=== PATIENT | male | born 1965 | race Caucasian/White ===

== ENCOUNTER 2019-07-16 07:52 | Outpatient (CLI) | payer OTHER, SELFPAY ==
--- NOTE | ~2019-07-16 | US_ITS ---
EXAMINATION: US venous doppler LE RT DATE: 07/16/2019 15:18 INDICATION: Right calf pain. TECHNIQUE: Grayscale ultrasound images without and with compression and Doppler ultrasound images of the right lower extremity veins were obtained. COMPARISON: None. FINDINGS: The visualized portions of right common femoral vein, profunda (deep) femoral vein, femoral vein, pop liteal vein, peroneal veins, posterior tibial veins, and greater saphenous vein outflow are patent. IMPRESSION: 1. No deep venous thrombosis. Reviewed, dictated and finalized at location A. STANT NURSE MANAGER
--- NOTE | ~2019-07-16 | US_ITS ---
EXAMINATION: US arterial ankle brachial ind DATE: 07/16/2019 08:28 INDICATION: Peripheral vascular disease, unspecified. TECHNIQUE: Segmental pressures and plethysmographic and Doppler waveforms of the brachial and lower e xtremity arteries were obtained. COMPARISON: None. FINDINGS: Right and left brachial artery pressures of 139 mm Hg and 128 mm Hg, respectively, are concordant (no rmal difference <= 30 mmHg). The right ankle-brachial index (BOUBACAR) is 1.10 (normal >= 0.9-1.0). The right great toe-brachial index (TBI) is 1.12 (normal >= 0.65). Arterial Doppler waveforms are triphasic at the ankle. The left BOUBACAR is 1.04. The left TBI is 1.01. Arterial Doppler waveforms are triphasic at the ankle. IMPRESSION: 1. No significant arterial occlusive disease. Reviewed, dictated and finalized at location A. SPRING DEVELOPER
== END 2019-07-16 07:53 | disposition home or self-care (01) ==
PROVIDERS: PCP Family Medicine; Visit Provider Physician Assistant
DX: I73.9 Peripheral vascular disease, unspecified (principal); M79.661 Pain in right lower leg
CPT/HCPCS: 93922; 93971

== ENCOUNTER 2019-09-17 08:49 | Outpatient (CLI) | payer OTHER, SELFPAY ==
--- NOTE | 2019-09-17 10:00 | NEURO_ITS ---
Patient Number: [id number] Impression: # Complains of numbness of right foot. # Normal nerve conduction study except posterior tibial response at the popliteal is polyphasic. # Normal needle/EMG exam. # Question of early post tibial neuropathy. Nerve Conduction Studies Anti Sensory Summary Table Stim Site NR Peak (ms) P-T Amp (?V) Site1 Site2 Delta-P (ms) Dist (cm) Apolinar (m/s) Left Sup Fibular Anti Sensory (Ant Lat Mall) 14 cm 3.6 14.0 14 cm Ant Lat Mall 3.6 16.0 44 Right Sup Fibular Anti Sensory (Ant Lat Mall) 14 cm 3.6 14.8 14 cm Ant Lat Mall 3.6 16.0 44 Left Sural Anti Sensory (Lat Mall) Calf 4.0 7.7 Calf Lat Mall 4.0 16.0 40 Right Sural Anti Sensory (Lat Mall) Calf 3.9 7.8 Calf Lat Mall 3.9 16.0 41 Motor Summary Table Stim Site NR Onset (ms) O-P Amp (mV) Site1 Site2 Delta-0 (ms) Dist (cm) Apolinar (m/s) Left Peroneal Motor (Vastus Med) Ankle 4.8 3.1 Popit Ankle 9.4 38.0 40 Popit 14.2 2.0 Right Peroneal Motor (Vastus Med) Ankle 4.8 2.1 Popit Ankle 8.8 39.0 44 Popit 13.6 3.8 Left Tibial Motor (Abd Winston Brev) Ankle 4.9 0.5 Knee Ankle 10.6 45.0 42 Knee 15.5 0.5 Right Tibial Motor (Abd Winston Brev) Ankle 5.3 1.7 Knee Ankle 10.8 44.0 41 Knee 16.1 0.6 F Wave Studies NR F-Lat (ms) L-R F-Lat (ms) Left Peroneal (Mrkrs) (EDB) 57.03 0.03 Right Peroneal (Mrkrs) (EDB) 57.00 0.03 Left Tibial (Mrkrs) (Abd Hallucis) 58.95 0.01 Right Tibial (Mrkrs) (Abd Hallucis) 58.96 0.01 EMG Side Muscle Nerve Root Ins Act Fibs Amp Dur Recrt Comment Right AntTibialis Dp Br Fibular L4-5 Nml Nml Nml Nml Nml Right Gastroc Tibial S1-2 Nml Nml Nml Nml Nml Right Fibularis Long Sup Br Fibular L5-S1 Nml Nml Nml Nml Nml Right Flex Dig Long Tibial L5-S2 Nml Nml Nml Nml Nml Right Ext Dig Brev Dp Br Fibular L5, S1 Nml Nml Nml Nml Nml Left AntTibialis Dp Br Fibular L4-5 Nml Nml Nml Nml Nml Left Gastroc Tibial S1-2 Nml Nml Nml Nml Nml Left Fibularis Long Sup Br Fibular L5-S1 Nml Nml Nml Nml Nml Left Flex Dig Long Tibial L5-S2 Nml Nml Nml Nml Nml Left Ext Dig Brev Dp Br Fibular L5, S1 Nml Nml Nml Nml Nml Right QuadratusFem QuadFemoris L4-5, S1 Nml Nml Nml Nml Nml Left QuadratusFem QuadFemoris L4-5, S1 Nml Nml Nml Nml Nml MTDD
== END 2019-09-17 08:50 | disposition home or self-care (01) ==
PROVIDERS: PCP Family Medicine; Visit Provider Physician Assistant
DX: R20.2 Paresthesia of skin (principal); R29.898 Other symptoms and signs involving the musculoskeletal system
CPT/HCPCS: 95886; 95910

== ENCOUNTER 2019-12-05 07:42 | Outpatient (CLI) | payer OTHER, SELFPAY ==
--- NOTE | ~2019-12-05 | MR_ITS ---
EXAMINATION: MR thoracic spine wo con EXAM DATE: 12/05/2019 08:55 INDICATION: Numbness in right foot. Difficulty with stairs. TECHNIQUE: Multi-sequential, multiplanar MR images of the thoracic spine were obtained without contra st. Sagittal T1, T2, T2 fat saturation, axial T2 weighted images reviewed. There is no prior study for comparison. FINDINGS: The spinal cord signal intensity and intrinsic morphology is normal. Thoracic central canal and neural foramen are widely patent. There is only mild disc disease at the mid and lower thoracic levels. Minimal anterior wedging of a midthoracic vertebral body, chronic given that thoracic bone ma rrow signal is normal throughout. Small upper lumbar vertebral body hemangioma. Mild diffuse thoracic facet arthropathy. Paraspinal soft tissue is unremarkable. IMPRESSION: Mild thoracic spondylosis without stenosis. Normal cord signal. Reviewed, dictated and finalized at location A.
--- NOTE | ~2019-12-05 | MR_ITS ---
EXAMINATION: MR cervical spine wo con EXAM DATE: 12/05/2019 08:54 INDICATION: Weakness, numbness. Right foot numbness. Difficulty with stairs. TECHNIQUE: Multi-sequential, multiplanar MR images of the cervical spine were obtained without contra st. Axial T2, axial T2 MERGE sequence. Sagittal T1, T2, T2 fat saturation images also obtained. Cor relation is made to CT cervical spine 01/03/2019. FINDINGS: There is mild disc disease at C5-6 and C6-7. The vertebral bodies are aligned in the AP di mension. The spinal cord signal intensity and intrinsic morphology is normal. Cervicomedullary juncti on is normal in appearance. There are no suspicious marrow signal abnormalities. Paraspinal soft tiss ue is unremarkable. Right clavicular fracture which is likely old. Level by level evaluation: C2-C3: Disc does not extend beyond the endplate margin. Uncovertebral joint arthropathy: None. Facet joint arthropathy: Mild bilateral. Neural foraminal stenosis: No stenosis. Central canal stenosis: No stenosis. C3-C4: Disc does not extend beyond the endplate margin. Uncovertebral joint arthropathy: Mild right. Facet joint arthropathy: Mild to moderate bilateral. Neural foraminal stenosis: Mild right. Central canal stenosis: No stenosis. C4-C5: Disc does not extend beyond the endplate margin. Uncovertebral joint arthropathy: Mild bilateral. Facet joint arthropathy: Mild to moderate bilateral. Neural foraminal stenosis: No stenosis. Central canal stenosis: No stenosis. C5-C6: There is a mild diffuse disc bulge asymmetric to the left Uncovertebral joint arthropathy: Mild to moderate bilateral. Facet joint arthropathy: Mild to moderate bilateral. Neural foraminal stenosis: Mild to moderate left, mild right. Central canal stenosis: Minimal. C6-C7: There is a minimal diffuse disc bulge. Uncovertebral joint arthropathy: Mild bilateral. Facet joint arthropathy: Mild to moderate bilateral. Neural foraminal stenosis: No stenosis. Central canal stenosis: No stenosis. C7-T1: Disc does not extend beyond the endplate margin. Uncovertebral joint arthropathy: None. Facet joint arthropathy: Mild bilateral. Neural foraminal stenosis: No stenosis. Central canal stenosis: No stenosis. IMPRESSION: 1. Mild cervical spondylosis. 2. Normal cord signal. Reviewed, dictated and finalized at location A.
== END 2019-12-05 07:43 | disposition home or self-care (01) ==
PROVIDERS: PCP Family Medicine; Visit Provider Psychiatry & Neurology Neurology
DX: R53.1 Weakness (principal); M47.814 Spondylosis without myelopathy or radiculopathy, thoracic region; M47.812 Spondylosis without myelopathy or radiculopathy, cervical region
CPT/HCPCS: 72141; 72146

== ENCOUNTER 2020-01-12 13:34 | Outpatient (CLI) | payer OTHER, SELFPAY ==
--- NOTE | ~2020-01-12 | MR_ITS ---
EXAMINATION: MR lumbar spine wo con EXAM DATE: 01/12/2020 14:39 INDICATION: Right leg numbness since June 2019. TECHNIQUE: Multi-sequential, multiplanar MR images of the lumbar spine were obtained without contrast . Sagittal T1, T2, T2 fat saturation images. Axial T2 weighted images. There is no prior study for comparison. FINDINGS: There are scattered focal signal abnormalities consistent with hemangiomata, otherwise with out focal suspicious marrow signal abnormalities. There is mild to moderate disc disease L1-2, modera te at L5-S1, mild at the mid lumbar levels. There is 4 mm retrolisthesis L5 on S1. The vertebral bodi es are otherwise aligned. Paraspinal soft tissue is unremarkable. Level by level evaluation: T12-L1: Disc does not extend beyond the endplate margin. Facet arthropathy: Mild. Neural foraminal stenosis: No stenosis. Central canal stenosis: No stenosis. L1-L2: There is a mild diffuse disc bulge. Facet arthropathy: Mild. Neural foraminal stenosis: Mild left. Central canal stenosis: No stenosis. L2-L3: There is a minimal diffuse disc bulge. Facet arthropathy: Mild. Neural foraminal stenosis: No stenosis. Central canal stenosis: No stenosis. L3-L4: There is a mild diffuse disc bulge. Facet arthropathy: Mild. Neural foraminal stenosis: No stenosis. Central canal stenosis: No stenosis. L4-L5: There is a mild diffuse disc bulge. Facet arthropathy: Mild. Neural foraminal stenosis: Mild bilateral. Central canal stenosis: No stenosis. L5-S1: There is a mild to moderate diffuse disc bulge. Facet arthropathy: Mild to moderate. Neural foraminal stenosis: Moderate right, mild to moderate left. Central canal stenosis: No stenosis. IMPRESSION: Moderate L5-S1 spondylosis. Reviewed, dictated and finalized at location A. IMPRESSION: Moderate L5-S1 spondylosis.
== END 2020-01-12 13:35 | disposition home or self-care (01) ==
PROVIDERS: PCP Family Medicine; Visit Provider Psychiatry & Neurology Neurology
DX: R53.1 Weakness (principal); M47.816 Spondylosis without myelopathy or radiculopathy, lumbar region
CPT/HCPCS: 72148

== ENCOUNTER 2020-05-22 12:39 | Emergency (ER) | payer OTHER, SELFPAY ==
[2020-05-22 12:48] VITALS: BP 157/92; PULSE 90; RESP 18; TEMP 36.8; O2SAT 99
--- NOTE | 2020-05-22 13:05 | ED.GENADULT ---
HPI - General Adult General Chief complaint: Recheck/Abnormal Lab/Rx Stated complaint: Acid Reflux Time Seen by Provider: 05/22/20 12:59 Source: patient and RN notes reviewed Mode of arrival: ambulatory Limitations: no limitations History of Present Illness HPI narrative: Patient presents today requesting a refill of his omeprazole, 40 mg daily. Patient has history of severe GERD with erosive esophagitis diagnosed by endoscopy several years ago. He ran out of his omeprazole 4 to 5 days ago and pharmacy has not been able to get a refill from his PCP yet. Patient is experiencing some epigastric discomfort and some regurgitation into his throat. Denies vomiting. States he has been drinking a lot of caffeine and eating spicy foods over the last couple of days. MD complaint: Medication refill, GERD symptoms Related Data Home Medications Medication Instructions Recorded Confirmed aspirin 81 mg chewable tablet 1 tablet PO DAILY tablet 10/14/19 atorvastatin 20 mg tablet 20 mg PO DAILY tablet 10/14/19 isosorbide mononitrate 30 mg 30 mg PO DAILY tablet 10/14/19 tablet,extended release 24 hr lisinopril 5 mg tablet 5 mg PO DAILY tablet 10/14/19 metoprolol succinate 25 mg 25 mg PO DAILY tablet 10/14/19 tablet,extended release 24 hr omeprazole 40 mg capsule,delayed 40 mg PO DAILY cap 10/14/19 release gabapentin 05/22/20 Allergies Allergy/AdvReac Type Severity Reaction Status Date / Time No Known Allergies Allergy Verified 04/20/20 07:56 Review of Systems Review of Systems: Narrative: CONSTITUTIONAL: Denies body aches, fever, chills, or sweats. EYES: Denies visual changes, redness, or discharge. ENT: Denies rhinorrhea, congestion, sore throat, or otalgia. CARDIOVASCULAR: Denies chest pain, palpitations, or edema. RESPIRATORY: Denies cough or dyspnea. GASTROINTESTINAL: Denies abdominal pain, nausea, vomiting, or diarrhea. + Increased acid reflux GENITOURINARY: Denies dysuria or hematuria. SKIN: Denies rash, itching, or wounds. MUSCULOSKELETAL: Denies back pain, joint pain, or myalgia. NEUROLOGIC: Denies headache, numbness, tingling, or weakness. PSYCH: Denies depression or anxiety. [facility] Past Medical History Medical History (Updated 05/22/20 @ 13:10 by JENNIFER Brandon, ) Coronary artery disease Erosive esophagitis GERD (gastroesophageal reflux disease) Hypercholesterolemia Seasonal allergies Surgical History Surgical History (Updated 06/09/19 @ 09:04 by JENNIFER Estrella) H/O cardiac catheterization No stents, on metoprolol History of orthopedic surgery Fractured right clavicle, fractured rib, fractured spinal process 2019 Hx of tonsillectomy Family History Family History Mother Family history of diabetes mellitus in first degree relative Father Family history of coronary artery disease Malignant neoplasm of prostate Social History Social History (Updated 04/20/20 @ 07:57 by Kori Mendez) Smoking status: Never smoker Second hand tobacco smoke exposure: No Alcohol intake: never Substance use: never Substance use type: does not use Gender identity (if verbalized by the patient): Male Comments At time of signature, I have reviewed and agree with nursing past medical, surgical, social and family history unless otherwise noted. Please see nursing chart for further information. There is no relevant family history pertinent to the presenting complaint Exam Narrative: Exam Narrative: GENERAL: Well-appearing, well-nourished, and in no acute distress. HEAD: Normocephalic, atraumatic. EYES: EOMI. No redness or drainage. Conjunctivae normal. ENT: Mucous membranes pink and moist. NECK: Normal AROM. CHEST: No respiratory distress. Clear to auscultation. HEART: Regular rate and rhythm. No murmur appreciated. Normal peripheral pulses. ABDOMEN: Soft, nontender, nondistended, normal active bowel lacey
== END 2020-05-22 13:10 | disposition home or self-care (01) ==
PROVIDERS: Emergency Provider Nurse Practitioner; PCP Family Medicine
DX: K21.00 Gastro-esophageal reflux disease with esophagitis, without bleeding (principal); I25.10 Atherosclerotic heart disease of native coronary artery without angina pectoris; E78.00 Pure hypercholesterolemia, unspecified; Z79.82 Long term (current) use of aspirin
CPT/HCPCS: 99213; G0463

== ENCOUNTER 2020-10-12 16:28 | Outpatient (CLI) | payer OTHER, SELFPAY ==
[2020-10-12 17:40] LABS: Hemoglobin A1C 6.4 % (<5.7)
[2020-10-12 17:44] LABS: Alanine Aminotransferase 27 U/L (4-50); Albumin Level 4.3 g/dL (3.5-5.1); Alkaline Phosphatase 102 U/L (38-126); Anion Gap 8 mmol/L (8-16); Aspartate Amino Transferase 29 U/L (17-59); Bilirubin,Total 0.8 mg/dL (0.2-1.3); Blood Urea Nitrogen 12 mg/dL (9-20); Calcium 9.3 mg/dL (8.4-10.2); Carbon Dioxide 26 mmol/L (22-30); Chloride 108 mmol/L (98-107); Estimated Glomerular Filt Rate > 60; Glucose 152 mg/dL (75-110); Sodium 142 mmol/L (137-145)
== END 2020-10-12 16:29 | disposition home or self-care (01) ==
LOC: ANHLAB 16:30
PROVIDERS: PCP Family Medicine; Visit Provider Physician Assistant
DX: I25.10 Atherosclerotic heart disease of native coronary artery without angina pectoris (principal); R20.2 Paresthesia of skin; R73.01 Impaired fasting glucose
CPT/HCPCS: 36415; 80053; 82607; 82746; 83036; 84443

== ENCOUNTER → 2021-01-10 14:24 | Outpatient (CLI) | payer OTHER, SELFPAY ==
--- NOTE | ~2021-01-10 | MR_ITS ---
EXAMINATION: MR lumbar spine wo con DATE: 01/10/2021 15:08 INDICATION: Lumbar radiculopathy. TECHNIQUE: Magnetic resonance imaging (MRI) of the lumbar spine was performed without intravenous con trast. Sequences included sagittal T2-weighted FSE, sagittal T2-weighted FS FSE, sagittal STIR FSE, s agittal T1-weighted FSE, and axial T2-weighted FSE. COMPARISON: Lumbar spine MRI 01/12/2020 FINDINGS: There is 7 degrees dextrocurvature of thoracolumbar spine. There is 3 mm retrolisthesis of L5 on S1. Vertebral body heights are normal. There is mildly decreased disc height at L1-L2 and sever jesu decreased disc height at L5-S1 with endplate remodeling. The distal spinal cord signal intensity is normal. The conus medullaris is at L2. The following disc levels are specifically discussed: L1-L2: The disc is bulging and has an annular fissure. There is mild bilateral facet joint osteoarthr itis. There is mild left neural foraminal stenosis. There is mild central canal stenosis. L2-L3: There is a left foraminal protrusion. There is mild bilateral facet joint osteoarthritis. Ther e is mild left neural foraminal stenosis. There is no central canal stenosis. L3-L4: The disc is mildly bulging. There is mild bilateral facet joint osteoarthritis. There is mild bilateral neural foraminal stenosis. There is no central canal stenosis. L4-L5: The disc is mildly bulging. There is mild bilateral facet joint osteoarthritis. There is mild bilateral neural foraminal stenosis. There is no central canal stenosis. L5-S1: The disc is bulging and has an annular fissure. There is moderate right and mild left facet gavin int osteoarthritis. There is moderate right and mild left neural foraminal stenosis. There is mild ce ntral canal stenosis. IMPRESSION: 1. Moderate lumbar spondylosis, stable from 01/12/2020. Reviewed, dictated and finalized at location A.
== END ==
PROVIDERS: PCP Family Medicine; Visit Provider Nurse Practitioner Adult Health
DX: M47.27 Other spondylosis with radiculopathy, lumbosacral region (principal); M48.07 Spinal stenosis, lumbosacral region
CPT/HCPCS: 72148

== ENCOUNTER 2021-04-26 09:48 | Outpatient (CLI) | payer OTHER, SELFPAY ==
[2021-04-26 10:11] LABS: Basophils Absolute Auto 0.1 K/mm3 (0.0-0.1); Basophils Percent Auto 0.7 % (0.2-1.2); Eosinophils Absolute Auto 0.3 K/mm3 (0-0.3); Eosinophils Percent Auto 3.9 % (0-4.4); Hematocrit 45.7 % (42.0-52.0); Hemoglobin 14.7 g/dL (14.0-18.0); Immature Granulocyte Absolute 0.02 K/mm3 (0.00-0.031); Immature Granulocyte Percent A 0.2 % (0-0.5); Lymphocytes Absolute Auto 2.71 K/mm3 (0.9-3.2); Lymphocytes Percent Auto 32.3 % (18.3-44.2); Mean Corpuscular HGB Conc 32.2 g/dl (32-36); Mean Corpuscular Hemoglobin 28.8 pg (26-34); Mean Corpuscular Volume 89.6 fl (80-100); Mean Platelet Volume 10.9 fl (7.4-10.4); Monocytes Absolute Auto 0.5 K/mm3 (0.1-0.6); Monocytes Percent Auto 6.4 % (2.6-8.5); Neutrophils Absolute Auto 4.7 K/mm3 (1.3-6.7); Neutrophils Percent Auto 56.5 % (45.5-73.1); Platelet Count Result 287 k/mm3 (150-375); Red Cell Distribution Width 14.1 % (11.5-14.5); White Blood Count 8.4 K/mm3 (4.5-10.0)
[2021-04-26 10:21] LABS: Alanine Aminotransferase 35 U/L (4-50); Albumin Level 4.5 g/dL (3.5-5.1); Alkaline Phosphatase 110 U/L (38-126); Anion Gap 12 mmol/L (8-16); Aspartate Amino Transferase 29 U/L (17-59); Bilirubin,Total 0.8 mg/dL (0.2-1.3); Blood Urea Nitrogen 22 mg/dL (9-20); Calcium 8.7 mg/dL (8.4-10.2); Carbon Dioxide 21 mmol/L (22-30); Chloride 102 mmol/L (98-107); Cholesterol 158 mg/dL (0-200); Estimated Glomerular Filt Rate > 60; Glucose 130 mg/dL (65-110); HDL Direct 39 mg/dL; Potassium 3.9 mmol/L (3.4-5.0); Sodium 135 mmol/L (137-145); Triglycerides 105 mg/dL (<150)
[2021-04-26 10:32] LABS: LDL Cholesterol Direct 98 mg/dL
[2021-04-26 11:13] LABS: Hemoglobin A1C 5.2 % (<5.7)
== END 2021-04-26 09:49 | disposition home or self-care (01) ==
LOC: ANHLAB 09:52
PROVIDERS: PCP Family Medicine; Visit Provider Nurse Practitioner Family
DX: R73.01 Impaired fasting glucose (principal); E78.00 Pure hypercholesterolemia, unspecified; I25.10 Atherosclerotic heart disease of native coronary artery without angina pectoris; R55 Syncope and collapse
CPT/HCPCS: 36415; 80053; 80061; 83036; 85025

== ENCOUNTER 2021-05-26 09:31 | Outpatient (CLI) | payer OTHER, SELFPAY ==
--- NOTE | ~2021-05-26 | CT_ITS ---
EXAMINATION: CT brain wo con DATE: 05/26/2021 09:51 INDICATION: Right leg numbness and tingling. TECHNIQUE: Computed tomography (CT) of the head was performed without intravenous contrast. The mA wa s adjusted according to patient size. Iterative reconstruction technique was employed. The dose-lengt h product was 681.00 mGy-cm. COMPARISON: Head CT 01/03/2019 FINDINGS: There are scattered areas of low attenuation in the cerebral white matter. There is no intr acranial hemorrhage, acute infarction, or abnormal intracranial mass lesion. The ventricles are joe l in size. The orbits are normal. There is mild mucosal thickening in the paranasal sinuses. The mast oid air cells are normal. IMPRESSION: 1. Worsened extensive nonspecific cerebral white matter disease, which likely represents chronic smal l vessel ischemic disease. Reviewed, dictated and finalized at location A. BILITIES CAREGIVER IMPRESSION: 1. Worsened extensive nonspecific cerebral white matter disease, which likely r epresents chronic small vessel ischemic disease.
== END 2021-05-26 09:32 | disposition home or self-care (01) ==
LOC: ANHIMG 09:34
PROVIDERS: PCP Family Medicine; Visit Provider Nurse Practitioner Family
DX: R42 Dizziness and giddiness (principal); R55 Syncope and collapse; R93.0 Abnormal findings on diagnostic imaging of skull and head, not elsewhere classified
CPT/HCPCS: 70450

== ENCOUNTER 2021-05-31 06:36 | Outpatient (CLI) | payer OTHER, SELFPAY ==
--- NOTE | ~2021-05-31 | MR_ITS ---
EXAMINATION: MR cervical spine wo/w con DATE: 05/31/2021 14:07 INDICATION: Other symptoms and signs involving the musculoskeletal system. Neck and back pain. Numbne ss and weakness of the right leg. TECHNIQUE: Magnetic resonance imaging (MRI) of the cervical spine was performed without and with 20 m L MultiHance intravenous contrast. Sequences included sagittal and axial T2-weighted FSE, sagittal ST IR FSE, and sagittal and axial T1-weighted FSE. Postcontrast sequences included sagittal and axial T1 -weighted FS FSE. COMPARISON: Cervical spine MRI 12/05/2019 FINDINGS: There is 5 degrees dextrocurvature of cervical spine. There is mild chronic anterior wedgin g of T7 vertebral body. Disc heights are normal. The spinal cord signal intensity is normal. The foll owing disc levels are specifically discussed: C2-C3: The disc does not extend beyond the endplate margin. There is no uncovertebral joint osteoarth ritis. There is mild right and moderate left facet joint osteoarthritis. There is no neural foraminal stenosis. There is no central canal stenosis. C3-C4: There is a central protrusion. There is moderate and mild left uncovertebral joint osteoarthri tis. There is mild bilateral facet joint osteoarthritis. There is mild right neural foraminal stenosi s. There is no central canal stenosis. C4-C5: The disc does not extend beyond the endplate margin. There is mild right uncovertebral joint o steoarthritis. There is mild bilateral facet joint osteoarthritis. There is mild right neural foramin al stenosis. There is no central canal stenosis. C5-C6: The disc is bulging. There is mild bilateral uncovertebral joint osteoarthritis. There is mild bilateral facet joint osteoarthritis. There is mild bilateral neural foraminal stenosis. There is mi ld central canal stenosis. C6-C7: There is a central protrusion. There is no uncovertebral joint osteoarthritis. There is no fac et joint osteoarthritis. There is no neural foraminal stenosis. There is no central canal stenosis. C7-T1: The disc does not extend beyond the endplate margin. There is no uncovertebral joint osteoarth ritis. There is no facet joint osteoarthritis. There is no neural foraminal stenosis. There is no victor m tral canal stenosis. IMPRESSION: 1. Mild cervical spondylosis, stable from 12/05/2019. Reviewed, dictated and finalized at location A. PIT WORKER
--- NOTE | ~2021-05-31 | MR_ITS ---
EXAMINATION: MR thoracic spine wo/w con DATE: 05/31/2021 14:06 INDICATION: TECHNIQUE: Magnetic resonance imaging (MRI) of the thoracic spine was performed without and with 15 m L Multihance intravenous contrast. Sagittal localizer T1-weighted FSE of the cervicothoracic spine wa s obtained. Sequences included sagittal T2-weighted FSE, sagittal T2-weighted FS FSE, sagittal T1-laly ghted FSE and axial T1-weighted SE. Postcontrast sequences included axial T2-weighted FSE, sagittal T 1-weighted FS FSE, and axial T1-weighted FS SE. COMPARISON: 12/05/2019 FINDINGS: 15 degree levoscoliosis measured between T2 and T6. Sagittal alignment is normal. Unchanged minimal a nterior wedging at T5. Normal marrow signal.Mild right-sided disc height loss at T3-T4 and mild disc height loss at T5-T6, T8-T9, T10-T11, T11-T12 and L1-L2. No central canal or neural foraminal stenosi s. There is normal spinal cord signal. No abnormally enhancing lesions identified. IMPRESSION: 1. 15 degrees upper thoracic levoscoliosis with no significant change in mild thoracic spondylosis. Reviewed, dictated and finalized at location . RUMENT SHOP SUPERVISOR IMPRESSION: 1. 15 degrees upper thoracic levoscoliosis with no significant change in mild t horacic spondylosis.
--- NOTE | 2021-05-31 10:59 | WPDNEUROLOGY ---
Neurology EEG Report General Information Date of Study: 05/31/21 TEST eeg DIAGNOSIS Loss of consciousness CONDITION OF RECORDING awake drowsy and sleep EEG NUMBER [id number] CLINICAL HISTORY the patient reported a couple of weeks ago he had 3 episodes of losing consciousness for a minute or so. He has stopped taking lisinopril hand has not had any more episodes EEG DESCRIPTION basic resting occipital frequency consists of large amount of well-organized low to medium voltage 9 to 11 hertz per 2nd alpha admixed with low-voltage 15 to 18 hertz per 2nd beta. Low-voltage beta activity seen diffusely admixed with waxing and waning posterior alpha rhythm during drowsiness. Bilateral symmetrical sleep activity seen during sleep. Hyperventilation not done. Photic stimulation produced normal drive. Non paroxysmal. Nonfocal. Nonlateralizing. IMPRESSION normal record
[2021-05-31 12:48] LABS: Estimated Glomerular Filt Rate > 60
== END 2021-05-31 06:37 | disposition home or self-care (01) ==
PROVIDERS: PCP Family Medicine; Visit Provider Psychiatry & Neurology Neurology
DX: R29.898 Other symptoms and signs involving the musculoskeletal system (principal); R55 Syncope and collapse; M41.84 Other forms of scoliosis, thoracic region; M47.814 Spondylosis without myelopathy or radiculopathy, thoracic region; M47.812 Spondylosis without myelopathy or radiculopathy, cervical region
CPT/HCPCS: 72156; 72157; 95816; A9577

== ENCOUNTER 2021-07-08 13:44 | Outpatient (CLI) | payer OTHER, SELFPAY ==
--- NOTE | ~2021-07-08 | MR_ITS ---
EXAMINATION: MR brain/brain stem wo con DATE: 07/08/2021 14:25 INDICATION: Right leg weakness. Other symptoms and signs involving the musculoskeletal system. TECHNIQUE: Magnetic resonance imaging (MRI) of the brain and brainstem was performed without intraven ous contrast. Sequences included sagittal and axial T1-weighted FSE, axial diffusion-weighted FS EPI, axial T2*-weighted GRE, axial T2-weighted FLAIR Propeller, and axial T2-weighted Propeller. Apparent diffusion coefficient (ADC) maps were created. COMPARISON: Head CT 05/26/2021 FINDINGS: There are scattered areas of nonspecific increased T2-weighted signal intensity in the cere bral white matter, middle cerebellar peduncles, cerebellar white matter, and brainstem. There is no i ntracranial hemorrhage, acute infarction, or abnormal intracranial mass lesion. The ventricles are no rmal in size. The orbits are normal. There is mild mucosal thickening in the paranasal sinuses. The m astoid air cells are normal. IMPRESSION: 1. Extensive nonspecific cerebral and cerebellar white matter disease and disease of the brainstem, w hich may represent chronic small vessel ischemic disease and/or multiple sclerosis. Reviewed, dictated and finalized at location A. ARCH KENNEL SUPERVISOR IMPRESSION: 1. Extensive nonspecific cerebral and cerebellar white matter disease and disea se of the brainstem, which may represent chronic small vessel ischemic disease and/or multiple sclerosis.
== END 2021-07-08 13:45 | disposition home or self-care (01) ==
LOC: ANHIMG 13:47
PROVIDERS: PCP Family Medicine; Visit Provider Psychiatry & Neurology Neurology
DX: R29.898 Other symptoms and signs involving the musculoskeletal system (principal); R26.81 Unsteadiness on feet; R93.0 Abnormal findings on diagnostic imaging of skull and head, not elsewhere classified
CPT/HCPCS: 70551

== ENCOUNTER 2021-07-30 09:38 | Outpatient (CLI) | payer OTHER, SELFPAY ==
--- NOTE | ~2021-07-30 | MR_ITS ---
EXAMINATION: MR thoracic spine wo/w con EXAM DATE: 07/30/2021 11:22 INDICATION: G35 - Multiple sclerosis TECHNIQUE: Multi-sequential, multiplanar MR images of the thoracic spine were obtained without contra st. Sagittal T1, T2, T2 fat saturation, axial T2 weighted images reviewed. Axial T1 weighted sequenc e. Patient was then injected with 20 mL Multihance intravenous contrast and reimaged. Postcontrast axial and sagittal T1-weighted fat saturation sequences were obtained. Comparison is made to prior ex amination from 05/31/2021. FINDINGS: Again there is mild upper thoracic levoscoliosis. Mild mid and lower thoracic disc disease. Mild diffuse thoracic facet arthropathy without central canal or neural foraminal stenosis. The spin al cord signal intensity and intrinsic morphology is normal. There are no areas of abnormal enhanceme nt on the post contrast images. IMPRESSION: 1. Mild upper thoracic levoscoliosis. 2. Mild spondylosis unchanged. 3. Normal cord signal. Reviewed, dictated and finalized at location A. NE MACHINIST
--- NOTE | ~2021-07-30 | MR_ITS ---
EXAMINATION: MR cervical spine wo/w con EXAM DATE: 07/30/2021 11:22 INDICATION: G35 - Multiple sclerosis TECHNIQUE: Multi-sequential, multiplanar MR images of the cervical spine were obtained without contra st. Axial T2, axial T2 MERGE sequence. Sagittal T1, T2, T2 fat saturation images also obtained. Axi al T1 weighted sequence. Patient was then injected with 20 mL Multihance intravenous contrast and re imaged. Postcontrast axial and sagittal T1-weighted fat saturation sequences were obtained.. Compari son is made to prior examination from 05/31/2021. FINDINGS: The vertebral bodies are aligned in the AP dimension. There is mild C5-6 disc disease. The vertebral body and disc heights are otherwise well maintained. There are no suspicious marrow signal abnormalities. The spinal cord signal intensity and intrinsic morphology is normal. Cervicomedullary junction is normal in appearance. There is focal region of increased T2 signal intensity within the right brachium pontis of the cerebellum without enhancement. This is unchanged compared to prior stud y. The mild to moderate cervical arthropathy previously described is unchanged with the left C5-6 lisa ral foramina most narrowed, mild to moderate stenosis. There are no areas of abnormal enhancement on the post contrast images. IMPRESSION: 1. Normal cervical cord signal. 2. Unchanged right cerebellar white matter hyperintensity. 3. Unchanged mild disc disease, mild to moderate arthropathy. Reviewed, dictated and finalized at location A. KE OPERATIONS OFFICER
[2021-07-30 10:13] LABS: Estimated Glomerular Filt Rate > 60
== END 2021-07-30 09:39 | disposition home or self-care (01) ==
LOC: ANHIMG 09:44
PROVIDERS: PCP Family Medicine; Visit Provider Psychiatry & Neurology Neurology
DX: G35 Multiple sclerosis (principal); M47.894 Other spondylosis, thoracic region; R93.0 Abnormal findings on diagnostic imaging of skull and head, not elsewhere classified; M50.30 Other cervical disc degeneration, unspecified cervical region
CPT/HCPCS: 72156; 72157; A9577

== ENCOUNTER 2021-08-14 18:59 | Observation (INO) | payer OTHER, SELFPAY ==
[2021-08-14] VITALS (24 sets, daily range): BP systolic 122–180; BP diastolic 56–110; PULSE 59–127; RESP 16–34; TEMP 36.4–36.9; O2SAT 95–100; BMI 37.8
--- NOTE | ~2021-08-14 | CT_ITS ---
EXAMINATION: CT abdomen pelvis wo con DATE: 08/15/2021 10:37 INDICATION: Diarrhea TECHNIQUE: Computed tomography (CT) of the abdomen and pelvis was performed without intravenous contr ast. The dose-length product (DLP) was 1476.03 mGy-cm. Automated exposure control and iterative recon struction technique were employed. COMPARISON: 01/03/2019 FINDINGS: Minimal dependent atelectasis is present in the lung bases. The heart size is normal. Calci fied coronary artery atherosclerosis is noted. The liver, spleen, pancreas, gallbladder, and adrenal glands are normal. There are three nonobstructing stones of the left kidney which measure up to 8 mm. Punctate nonobstructing stones of the right kidney measure up to 2 mm. No stones are identified in t he ureters or bladder. There is no hydronephrosis or hydroureter. The appendix is normal. There is a fat-containing umbilical hernia. No pathologically enlarged abdominal or pelvic lymph nodes are ident ified. There is no free intraperitoneal gas or evidence of bowel obstruction. There is moderate lumba r spondylosis at L5-S1. IMPRESSION: 1. No CT correlate for the patient's symptoms. 2. Bilateral nephrolithiasis. Reviewed, dictated and finalized at location B. R REPAIRER
--- NOTE | ~2021-08-14 | CT_ITS ---
EXAMINATION: CT brain wo con DATE: 08/14/2021 19:50 INDICATION: Weakness TECHNIQUE: Computed tomography (CT) of the head was performed without intravenous contrast. Sagittal and coronal reconstructions were performed. The mA was adjusted according to patient size. Iterative reconstruction technique was employed. The dose-length product was 681.00 mGy-cm. COMPARISON: head CT dated 05/26/2021 and brain MR dated 07/08/2021 FINDINGS: No acute intracranial hemorrhage, acute infarction or abnormal extra axial fluid collection. There is extensive scattered white matter hypoattenuation consistent with chronic small vessel ischemic disea se. Symmetric prominence of the sulci and ventricles consistent with mild age-appropriate diffuse cer ebral volume loss. No mass/mass effect. Mild mucosal thickening the left maxillary sinus. The orbits and mastoid air cells are normal. IMPRESSION: 1. Stable age-related changes including mild diffuse volume loss and extensive scattered white matter hypoattenuation consistent with chronic small vessel ischemic disease. Reviewed, dictated and finalized at location A. TATION OPERATOR AUTOMATIC IMPRESSION: 1. Stable age-related changes including mild diffuse volume loss and extensive scattered white matter hypoattenuation consistent with chronic small vessel isc hemic disease.
--- NOTE | 2021-08-14 19:11 | ECG_ITS ---
Measurements Intervals [place] Rate: 120 P: 48 MT: 140 QRS: -10 QRSD: 94 T: 71 QT: 311 QTc: 439 Interpretive Statements SINUS TACHYCARDIA WITH FREQUENT VENTRICULAR PREMATURE COMPLEXES IN A PATTERN OF VENTRICULAR TRIGEMINY NONSPECIFIC ST & T-WAVE ABNORMALITY BASELINE ARTIFACT ABNORMAL ECG COMPARED TO ECG 01/03/2019 13:24:58 SINUS TACHYCARDIA NOW PRESENT T-WAVE ABNORMALITY NOW PRESENT Electronically Signed On 08-15-2021 14:48:46 WAREHOUSE PROCESSOR by Jose J Novoa M.D.
[2021-08-14 19:26] LABS: Basophils Percent Auto 0.2 % (0.2-1.2); Eosinophils Percent Auto 0.2 % (0-4.4); Hematocrit 49.3 % (42.0-52.0); Hemoglobin 16.1 g/dL (14.0-18.0); Immature Granulocyte Absolute 0.07 K/mm3 (0.00-0.031); Immature Granulocyte Percent A 0.6 % (0-0.5); Lymphocytes Absolute Auto 1.36 K/mm3 (0.9-3.2); Mean Corpuscular HGB Conc 32.7 g/dl (32-36); Mean Corpuscular Hemoglobin 28.7 pg (26-34); Mean Corpuscular Volume 87.9 fl (80-100); Mean Platelet Volume 10.7 fl (7.4-10.4); Monocytes Absolute Auto 0.9 K/mm3 (0.1-0.6); Monocytes Percent Auto 7.1 % (2.6-8.5); Neutrophils Percent Auto 80.9 % (45.5-73.1); Platelet Count Result 210 k/mm3 (150-375); Red Blood Count 5.61 M/mm3 (4.6-6.20); Red Cell Distribution Width 13.2 % (11.5-14.5); White Blood Count 12.3 K/mm3 (4.5-10.0)
[2021-08-14] MEDS: LACTATED RINGERS 1,000 ML 999 ML IV CONT (19:35)
[2021-08-14] MEDS: ONDANSETRON INJ 4 MG/2 ML VIAL IV PUSH (19:35)
--- NOTE | 2021-08-14 19:40 | ED.NAVMDI ---
HPI - Nausea/Vomiting/Diarrhea General Chief complaint: Weakness Stated complaint: weakness x 24 hours, diarrhea, numb legs x 1 year Time Seen by Provider: 08/14/21 19:08 Source: patient Mode of arrival: EMS Limitations: no limitations History of Present Illness HPI Narrative: Patient is a 56-year-old male complaining of generalized weakness today accompanied by nausea, vomiting and diarrhea for the past 2 days. Patient states that he was too weak today to even go to the bathroom and that is why he is covered in fecal material. Patient describes his vomitus is nonbilious nonbloody. Patient describes his diarrhea as loose watery, nonbloody. Patient denies any chest pain, shortness of breath, abdominal pain, fever or chills. Related Data Home Medications Medication Instructions Recorded Confirmed aspirin 81 mg chewable tablet 1 tablet PO DAILY tablet 10/14/19 05/18/21 metoprolol succinate 25 mg 25 mg PO DAILY tablet 10/14/19 05/18/21 tablet,extended release 24 hr rosuvastatin 40 mg tablet 40 mg PO DAILY 05/23/21 Allergies Allergy/AdvReac Type Severity Reaction Status Date / Time No Known Allergies Allergy Unverified 08/14/21 19:02 Review of Systems Review of Systems: All systems reviewed & are unremarkable except as noted in HPI and below Constitutional: Constitutional: Denies body ache(s), Denies chills, Denies excessive sweating, Denies fatigue, Denies fever(s), Denies headache(s), Denies lethargy, Denies malaise and Denies weight loss Eyes: Eyes: Denies blurry vision, Denies change in vision and Denies loss of vision ENT: Denies dizziness, Denies ear discharge, Denies headache(s), Denies lip swelling, Denies epistaxis, Denies nasal congestion, Denies neck pain, Denies throat swelling and Denies tongue swelling Cardiovascular: Cardiovascular: Denies chest pain, Denies chest pain at rest, Denies chest pain with activity, Denies diaphoresis, Denies rapid heart rate, Denies edema, Denies irregular heart rhythm, Denies lightheadedness, Denies palpitations, Denies dyspnea and Denies dyspnea on exertion Respiratory: Respiratory: Denies chest congestion, Denies cough, Denies hemoptysis, Denies dyspnea and Denies dyspnea on exertion Gastrointestinal: Gastrointestinal: Denies abdominal pain, Denies melena, Denies hematochezia and Denies hematemesis Musculoskeletal: Musculoskeletal: Denies abnormal gait, Denies deformity, Denies joint swelling, Denies limited range of motion, Denies neck pain and Denies numbness Neurologic: Denies Abnormal speech present, Denies abnormal gait, Denies confusion, Denies dizziness, Denies headache(s), Denies focal weakness, Denies loss of vision, Denies numbness, Denies Other visual disturbances and Denies Sensory deficit (Neuro) Psychiatric: Psychiatric: Denies confusion, Denies depression, Denies auditory hallucinations, Denies homicidal ideation and Denies suicidal ideation Endocrine: Endocrine: Denies cold intolerance, Denies excessive sweating, Denies fatigue, Denies heat intolerance and Denies palpitations Hematologic/Lymphatic: Hematologic/Lymphatic: Denies easy bleeding and Denies easy bruising Allergic/Immunologic: Allergic/Immunologic: Denies lip swelling, Denies throat swelling and Denies tongue swelling PMFSH Past Medical History Medical History Coronary artery disease Erosive esophagitis GERD (gastroesophageal reflux disease) Hypercholesterolemia Seasonal allergies Surgical History Surgical History H/O cardiac catheterization No stents, on metoprolol History of orthopedic surgery Fractured right clavicle, fractured rib, fractured spinal process 2019 Hx of tonsillectomy Family History Family History Mother Family history of diabetes mellitus in first degree relative Father Family history of coronary artery
[2021-08-14 19:43] LABS: Alanine Aminotransferase 31 U/L (4-50); Albumin Level 4.3 g/dL (3.5-5.1); Alkaline Phosphatase 98 U/L (38-126); Anion Gap 12 mmol/L (8-16); Aspartate Amino Transferase 33 U/L (17-59); Bilirubin,Total 1.5 mg/dL (0.2-1.3); Blood Urea Nitrogen 17 mg/dL (9-20); Calcium 8.5 mg/dL (8.4-10.2); Carbon Dioxide 25 mmol/L (22-30); Chloride 102 mmol/L (98-107); Estimated CRCL calculation 96 ml/min; Estimated Glomerular Filt Rate > 60; Glucose 129 mg/dL (65-110); Lipase 244 U/L (23-300); Potassium 3.7 mmol/L (3.4-5.0); Sodium 139 mmol/L (137-145)
--- NOTE | 2021-08-14 20:32 | PC.NURSE ---
Patient stated to this RN, I am just too weak and I am not able to take care of myself
[2021-08-14 22:13] LABS: Magnesium 1.7 mg/dL (1.6-2.3); Phosphorus 3.1 mg/dL (2.5-4.5)
--- NOTE | 2021-08-14 22:37 | PM.IMHP ---
H&P: HPI History of Present Illness Date/Time: 08/14/21 22:37 Chief Complaint: Generalized weakness. Narrative: This is a 56-year-old male with past medical history significant for dyslipidemia, hypertension, nonobstructive coronary artery disease, suspected obstructive sleep apnea. Patient presents to the emergency room via EMS after he was found down in his residence laying in his feces for roughly 1 day according to patient his been having too numerous to count diarrhea, he fell and was unable to get up on his own of note patient uses a walker and has right lower extremity weakness. According to sister who is at bedside patient had been in his usual state of health. Patient denies any fevers rigors chills cough sputum production chest pain PND orthopnea dizziness loss of consciousness. Preliminary workup was significant for multiple PVCs on his telemetry magnesium was 1.7. Patient also has been worked up in the past for syncopal episode on frequent PVCs with Holter monitoring suspected to have sleep apnea however insurance did not approve sleep apnea study patient also with significant spinal stenosis and subjective right lower extremity weakness. Review of Systems Review of Systems: Diarrhea, fall, weakness. Constitutional: Constitutional: Denies chills, Denies fatigue, Denies fever(s), Denies malaise, Denies night sweats and Reports weakness Eyes: Eyes: Denies change in vision ENT: Denies dysphagia, Denies vertigo, Denies nasal congestion, Denies nasal discharge, Denies nasal obstruction and Denies odynophagia Cardiovascular: Cardiovascular: Denies chest pain, Denies syncope, Denies pedal edema, Denies leg edema, Denies lightheadedness, Denies radiating jaw, neck or arm pain, Denies palpitations and Denies dyspnea on exertion Respiratory: Respiratory: Denies chest congestion, Denies cough and Denies dyspnea Gastrointestinal: Gastrointestinal: Denies dyspepsia, Denies heartburn, Reports diarrhea, Denies nausea and Denies vomiting Genitourinary: Genitourinary: Denies dysuria and Denies flank pain Musculoskeletal: Musculoskeletal: Denies arthralgias, Denies joint swelling and Reports numbness Comments: Right lower extremity Integumentary/Breasts: Skin/Breast: Denies rash Neurologic: Reports focal weakness and Denies Sensory deficit (Neuro) Comments: Right lower extremity Psychiatric: Psychiatric: Reports no additional psychiatric complaints and Reports as per HPI Endocrine: Endocrine: Denies cold intolerance, Denies heat intolerance, Denies polyphagia, Denies polydipsia and Denies palpitations Hematologic/Lymphatic: Hematologic/Lymphatic: Reports no additional hematologic/lymphatic complaints and Reports as per HPI Allergic/Immunologic: Allergic/Immunologic: Reports no additional allergic/immunologic complaints and Reports as per HPI [facility] Past Medical History Medical History (Updated 08/15/21 @ 04:36 by Nicolette Hennessy MD) Coronary artery disease Erosive esophagitis GERD (gastroesophageal reflux disease) Hypercholesterolemia Seasonal allergies Surgical History Surgical History H/O cardiac catheterization No stents, on metoprolol History of orthopedic surgery Fractured right clavicle, fractured rib, fractured spinal process 2019 Hx of tonsillectomy Family History Family History Mother Family history of diabetes mellitus in first degree relative Father Family history of coronary artery disease Malignant neoplasm of prostate Social History Social History Smoking status: Never smoker Second hand tobacco smoke exposure: No Alcohol intake: never Substance use: never Substance use type: does not use Gender identity (if verbalized by the patient): Male Spiritual care concerns: No Meds Home Medications and Allergies Home Medicat
--- NOTE | 2021-08-14 23:00 | ADMGEN ---
This patient, Tashi Esposito, was admitted to 2 Medical Room 256-. Patient/family oriented to hospital policies and general routines including ID bracelet, bed and alarms, visiting hours, pain management, procedures, bathroom and other care routines, personal items, smoking policy, room service/diet, and visiting hours. Information on how to activate the Rapid Response Team has been discussed. Patient/Family are encouraged to report perceived risks to care and to ask questions if they do not understand what they are told or what they should do.
[2021-08-14] MEDS: LACTATED RINGERS 1,000 ML 150 ML IV CONT (23:50)
[2021-08-15] VITALS (11 sets, daily range): BP systolic 113–125; BP diastolic 71–73; PULSE 61–102; RESP 17–20; TEMP 36.2–36.7; O2SAT 96–99
[2021-08-15 00:54] LABS: Glucose Point of Care 120 mg/dl (65-105)
[2021-08-15] MEDS: MAGNESIUM SULF 2 GM/WATER 50ML 2 GM/50 ML BAG IVPB (06:37)
[2021-08-15] MEDS: LACTATED RINGERS 1,000 ML 150 ML IV CONT ×2 (06:42→11:14)
[2021-08-15] MEDS: ISOSORBIDE MONONITRATE 15 MG TAB.ER.24H PO (08:21)
[2021-08-15] MEDS: ASPIRIN 81 MG CHEWABLE TABLET PO (08:21)
[2021-08-15] MEDS: METOPROLOL SUCCINATE EXT REL 25 MG TABCR PO (08:21)
[2021-08-15] MEDS: ROSUVASTATIN 10 MG TABLET 40 MG PO (08:21)
[2021-08-15 11:41] LABS: Alanine Aminotransferase 24 U/L (4-50); Albumin Level 3.9 g/dL (3.5-5.1); Alkaline Phosphatase 77 U/L (38-126); Anion Gap 5 mmol/L (8-16); Aspartate Amino Transferase 27 U/L (17-59); Blood Urea Nitrogen 14 mg/dL (9-20); Calcium 8.1 mg/dL (8.4-10.2); Carbon Dioxide 28 mmol/L (22-30); Chloride 105 mmol/L (98-107); Estimated CRCL calculation 94 ml/min; Estimated Glomerular Filt Rate > 60; Glucose 144 mg/dL (65-110); Magnesium 2.4 mg/dL (1.6-2.3); Potassium 3.7 mmol/L (3.4-5.0); Sodium 138 mmol/L (137-145)
[2021-08-15 12:59] LABS: Glucose Point of Care 177 mg/dl (65-105)
[2021-08-15 13:06] LABS: Mean Corpuscular HGB Conc 32.6 g/dl (32-36); Mean Corpuscular Hemoglobin 29.1 pg (26-34); Mean Corpuscular Volume 89.3 fl (80-100); Mean Platelet Volume 11.6 fl (7.4-10.4); Platelet Count Result 202 k/mm3 (150-375); Red Blood Count 5.15 M/mm3 (4.6-6.20); Red Cell Distribution Width 13.4 % (11.5-14.5); White Blood Count 11.6 K/mm3 (4.5-10.0)
--- NOTE | 2021-08-15 14:07 | PM.IMPN ---
Progress Note: A&P Assessment and Plan (1) Acute gastroenteritis: Code(s): K52.9 - Noninfective gastroenteritis and colitis, unspecified Status: Acute Assessment and Plan: Presented with multiple episodes of diarrhea CT abdomen/pelvis showed no acute findings Suspect viral etiology. No indication for antibiotics at this time. Patient afebrile. Stool studies pending Tolerating full liquid diet. Advance to bland diet Antiemetics available as needed (2) Acute dehydration: Code(s): E86.0 - Dehydration Status: Acute Assessment and Plan: Secondary to diarrhea Patient has been adequately rehydrated with IV fluids Continue with gentle IV fluid rehydration while diet is being advanced Encourage p.o. intake (3) Frequent unifocal PVCs: Code(s): I49.3 - Ventricular premature depolarization Status: Acute Assessment and Plan: Patient with history of ectopy, completed a Holter monitor in the past Telemetry reviewed which did show PVCs Magnesium was supplemented. 2.4 today Electrolytes are stable Continue to monitor on telemetry. Consider Cardiology consultation if any change/patient becomes symptomatic (4) Generalized weakness: Code(s): R53.1 - Weakness Status: Acute Assessment and Plan: Acute on chronic. Acute worsening likely related to gastroenteritis as above, chronic likely due to physical deconditioning Appreciate PT/OT eval Ambulate with assistance (5) Neuropathy of lower extremity: Code(s): G57.90 - Unspecified mononeuropathy of unspecified lower limb Status: Acute Assessment and Plan: Patient unilateral neuropathy of the right leg He has been evaluated by Neurology for this No acute changes. Continue with outpatient follow-up Will check B12, folate, and A1c Subjective Date/time seen: 08/15/21 14:07 Interval history: Date of service 08/15/2021 Tashi Esposito is a 56-year-old male with a history of coronary artery disease, hyperlipidemia, GERD, esophagitis, and neuropathy of the right lower extremity who is seen in follow-up for diarrhea. He is feeling okay today. His biggest complaint is weakness which she states has been a persistent issue for several months. He has been struggling with neuropathy of his right leg and because of this has had increased difficulty getting around. He uses a walker most of the time for ambulation and he does not go very long. Mostly stays in his home and ambulance around the house. Yesterday he felt so weak that he could not get up to go to the bathroom and therefore was soiling himself. Reports his stool was loose, mushy, not watery, brown in color. Denied blood in his stool. He states he has not had any episodes of diarrhea today. He denies abdominal pain. No nausea or vomiting. Tolerating liquids. Still feels weak. He states that the right leg feels numb. He denies chest pain or palpitations. No shortness of breaths. Denies dizziness or lightheadedness. He has no additional concerns. He states that he lives alone is typically independent with all of his activities. Review of Systems Review of Systems: All systems reviewed & are unremarkable except as noted in HPI and below Exam Narrative: General: Well-nourished, well-appearing 56 year-old male, sitting up in bed, comfortable, NARD Neuro: awake, alert and oriented x4, speech clear, no focal neuro deficits noted HEENMT: normocephalic, atraumatic, EOMI, sclerae anicteric, moist oral mucosa Respiratory: clear to auscultation bilaterally, nonlabored breathing Cardio: regular rate, regular rhythm with S1-S2 Abdomen: nondistended, normoactive bowel sounds, soft, nontender to palpation Extremities: no edema, erythema, or tenderness to palpation, DP pulses 2+ bilaterally, brisk capillary refill, able to wiggle toes bilaterally, intact sensation Skin: no rashes or lesions, warm and dry Psych: appropri
[2021-08-15] MEDS: LACTATED RINGERS 1,000 ML 100 ML IV CONT (20:21)
[2021-08-16 00:05] VITALS: PULSE 59
[2021-08-16 04:03] VITALS: BP 116/77; PULSE 64; RESP 17; TEMP 35.7; O2SAT 97
[2021-08-16 04:05] VITALS: PULSE 64
[2021-08-16 05:39] LABS: Hematocrit 42.2 % (42.0-52.0); Hemoglobin 13.6 g/dL (14.0-18.0); Mean Corpuscular HGB Conc 32.2 g/dl (32-36); Mean Corpuscular Hemoglobin 29.2 pg (26-34); Mean Corpuscular Volume 90.8 fl (80-100); Platelet Count Result 180 k/mm3 (150-375); Red Blood Count 4.65 M/mm3 (4.6-6.20); Red Cell Distribution Width 13.5 % (11.5-14.5); White Blood Count 9.7 K/mm3 (4.5-10.0)
[2021-08-16 05:51] LABS: Anion Gap 3 mmol/L (8-16); Blood Urea Nitrogen 12 mg/dL (9-20); Carbon Dioxide 30 mmol/L (22-30); Chloride 105 mmol/L (98-107); Estimated CRCL calculation 94 ml/min; Estimated Glomerular Filt Rate > 60; Glucose 114 mg/dL (65-110); Magnesium 2.2 mg/dL (1.6-2.3); Potassium 3.7 mmol/L (3.4-5.0); Sodium 138 mmol/L (137-145)
[2021-08-16] MEDS: LACTATED RINGERS 1,000 ML 100 ML IV CONT (06:45)
[2021-08-16 08:00] VITALS: PULSE 60
[2021-08-16] MEDS: METOPROLOL SUCCINATE EXT REL 25 MG TABCR PO (08:19)
[2021-08-16] MEDS: ROSUVASTATIN 10 MG TABLET 40 MG PO (08:19)
[2021-08-16] MEDS: ISOSORBIDE MONONITRATE 15 MG TAB.ER.24H PO (08:19)
[2021-08-16] MEDS: ASPIRIN 81 MG CHEWABLE TABLET PO (08:19)
[2021-08-16 09:56] LABS: Hemoglobin A1C 5.5 % (<5.7)
--- NOTE | 2021-08-16 10:09 | PM.DS ---
DS: Admitting Diagnosis Discharge Date 08/16/2021 Admitting Diagnosis Acute dehydration DS: Discharge Diagnosis Discharge Diagnosis (1) Acute gastroenteritis: Code(s): K52.9 - Noninfective gastroenteritis and colitis, unspecified Status: Acute Assessment and Plan: Presented with multiple episodes of diarrhea CT abdomen/pelvis showed no acute findings Suspect viral etiology. No indication for antibiotics. Patient remained afebrile. Stool studies ordered but not collected as patients diarrhea resolved and he had no further episodes of loose stool. Diet was slowly advanced and he was able to bland (2) Acute dehydration: Code(s): E86.0 - Dehydration Status: Acute Assessment and Plan: Secondary to diarrhea He was adequately rehydrated with IV fluids was tolerating oral intake Encouraged to maintain appropriate oral fluid intake (3) Frequent unifocal PVCs: Code(s): I49.3 - Ventricular premature depolarization Status: Acute Assessment and Plan: Patient with history of ectopy, completed a Holter monitor in the past and is followed by Cardiology (Dr. Trevino) Telemetry reviewed which showed PVCs Magnesium 1.7 on presentation and was supplemented. 2.2 at time of discharge. Additional electrolytes stable Patient remained asymptomatic He will follow-up with his tax compliance officer as an outpatient (4) Generalized weakness: Code(s): R53.1 - Weakness Status: Acute Assessment and Plan: Acute on chronic. Acute worsening likely related to gastroenteritis as above, chronic likely due to physical deconditioning He participated in PT/OT and was found to be independent in his functional status Home health care was arranged for monitoring (5) Neuropathy of lower extremity: Code(s): G57.90 - Unspecified mononeuropathy of unspecified lower limb Status: Acute Assessment and Plan: Unilateral neuropathy of the right leg ongoing for several months He has been evaluated by Neurology for this No acute changes. Continue with outpatient follow-up Noted that he had an MRI in June 2021 that was concernin for possible MS which could contribute to these symptoms He has neurology appointment scheduled in the coming months. B12, folate, A1c all normal DS: Summary Hospital Course Hospital Course: date of admission: 08/14/2021 date of discharge: 08/16/2021 Tashi Esposito is a 56-year-old male with a history of coronary artery disease, hyperlipidemia, GERD, esophagitis, and neuropathy of the right lower extremity who presented to the emergency department on 08/14/2021 with complaints of diarrhea and generalized weakness. He was admitted to the hospitalist service for further evaluation and management. Please see above for further details. The patient was rehydrated and his diarrhea resolved. He was feeling improved overall and back to his usual state of health. Home healthcare was arranged. given the patient's overall improvement, he was determined to no longer require inpatient care and was felt to be stable for discharge. He will follow-up with his neurologist and tax compliance officer as an outpatient. I discussed with the patient worrisome signs and symptoms for which to return. He was discharged in hemodynamically stable condition on 08/16/2021. Status at Discharge Functional status at discharge: uses cane/walker Overall status at discharge: patient is back to baseline Time Spent with Patient Time attestation: Total time spent providing and/or coordinating discharge services: 40 minutes Time spent: Greater than 30 minutes Exam Narrative: General: Well-nourished, well-appearing 56 year-old male, sitting up in bed, comfortable, NARD Neuro: awake, alert and oriented x4, speech clear, no focal neuro deficits noted HEENMT: normocephalic, atraumatic, EOMI, sclerae anicteric, moist oral mucosa Respiratory: clear to auscultation bila
[2021-08-16 14:35] VITALS: BP 123/86; PULSE 63; RESP 18; TEMP 36.7; O2SAT 100
[2021-08-16 16:07] VITALS: O2SAT 96
== END 2021-08-16 17:25 | disposition home health service (06) ==
LOC: ANHED 20:53 → ANH2MED 22:22 → ANH3MED 08-16 10:09 → ANH2MED 08-18 09:42 → ANH3MED 08-18 09:42
PROVIDERS: Physician Assistant; Admitting Provider Internal Medicine; Emergency Provider Emergency Medicine; PCP Family Medicine; Visit Provider Internal Medicine
DX: K52.9 Noninfective gastroenteritis and colitis, unspecified (principal); E86.0 Dehydration; I49.3 Ventricular premature depolarization; R53.1 Weakness; R26.81 Unsteadiness on feet; G57.90 Unspecified mononeuropathy of unspecified lower limb; I25.10 Atherosclerotic heart disease of native coronary artery without angina pectoris; K21.9 Gastro-esophageal reflux disease without esophagitis; E78.00 Pure hypercholesterolemia, unspecified; Z79.82 Long term (current) use of aspirin; Z79.899 Other long term (current) drug therapy
CPT/HCPCS: 36415; 70450; 74176; 80048; 80053; 82607; 82746; 82948; 83036; 83690; 83735; 84100; 85025; 85027; 93005; 96360; 96361; 96374; 97110; 97116; 97161; 97165; 99285; A9270; G0378; J2405; J3475; J7120

== ENCOUNTER 2021-11-06 14:49 | Observation (INO) | payer OTHER, SELFPAY ==
[2021-11-06] VITALS (37 sets, daily range): BP systolic 133–177; BP diastolic 74–115; PULSE 88–113; RESP 16–31; TEMP 37.7–38.1; O2SAT 95–98
--- NOTE | ~2021-11-06 | XR_ITS ---
EXAMINATION: XR chest 2V 11/06/2021 15:24 INDICATION: Weakness. Hypertension. PROCEDURE: 2 view chest COMPARISON: No prior studies for comparison. FINDINGS: The lungs are clear. The cardiomediastinal silhouette is within normal limits. There are no pleural effusions. There is no pneumothorax suspected. IMPRESSION: 1: NO ACUTE CARDIOPULMONARY DISEASE. Reviewed, dictated and finalized at location A.
--- NOTE | ~2021-11-06 | CT_ITS ---
EXAMINATION: CT abdomen pelvis wo con DATE: 11/06/2021 17:14 INDICATION: Constipation. Abdominal pain. TECHNIQUE: Computed tomography (CT) of the abdomen and pelvis was performed without intravenous contr ast. The dose-length product was 1520.59 mGy-cm. Automated exposure control and iterative reconstruct ion technique were employed. COMPARISON: CT dated 08/15/2021. FINDINGS: Heart size normal. No significant pleural or pericardial effusion. The liver, spleen, pancr eas, adrenal glands are unremarkable. Study limited by motion. Gallbladder is present. There are nono bstructing right renal stones. No significant hydronephrosis. There is a left internal ureteral stent in expected position. Bladder is decompressed. Mild bladder wall thickening. No significant vascular abnormality. No lymphadenopathy. Nonobstructive bowel gas pattern. There is mild dextrocurvature of the lumbar spine. No free air or free fluid. There is a fat-containing umbilical hernia. There is low er lumbar spondylosis. IMPRESSION: 1. Nonobstructing right nephrolithiasis. 2: Left internal ureteral stent in expected position. 3: Mild bladder wall thickening which may be due to underdistention, although cystitis should be con sidered in the appropriate clinical setting. Reviewed, dictated and finalized at location A. IMPRESSION: 1. Nonobstructing right nephrolithiasis. 2: Left internal ureteral stent in expected position. 3: Mild bladder wall thickening which may be due to underdistention, although cystitis should be considered in the appropriate clinical setting.
--- NOTE | ~2021-11-06 | CT_ITS ---
EXAMINATION: CT lumbar spine wo con DATE: 11/09/2021 10:09 INDICATION: Bulging discs. Difficulty walking. TECHNIQUE: Computed tomography (CT) of the lumbar spine was performed without intravenous contrast. A utomated exposure control and iterative reconstruction technique were employed. The dose-length produ ct was 0.00 mGy-cm. COMPARISON: CT lumbar spine 01/03/2019 FINDINGS: Partially visualized is a left internal ureteral stent in expected position. There is 4 deg link dextrocurvature of lumbar spine. There is mild chronic anterior wedging of L1 and L2 vertebral b odies. There is mildly decreased disc height at L1-L2 and severely decreased disc height at L5-S1 wit h endplate remodeling. There is a benign bone island in L3 vertebral body. The following disc levels are specifically discussed: L1-L2: The disc is bulging. There is mild bilateral facet joint osteoarthritis. There is mild bilater al neural foraminal stenosis. There is mild central canal stenosis. L2-L3: The disc is bulging. There is mild bilateral facet joint osteoarthritis. There is mild bilater al neural foraminal stenosis. There is mild central canal stenosis. L3-L4: The disc is bulging. There is mild bilateral facet joint osteoarthritis. There is mild bilater al neural foraminal stenosis. There is mild central canal stenosis. L4-L5: The disc is bulging. There is mild bilateral facet joint osteoarthritis. There is moderate rig ht and mild left neural foraminal stenosis. There is mild central canal stenosis. L5-S1: The disc is bulging. There is moderate right and mild left facet joint osteoarthritis. There i s moderate bilateral neural foraminal stenosis. There is mild central canal stenosis. IMPRESSION: 1. Severe lower lumbar spondylosis, stable from 01/03/2019. Reviewed, dictated and finalized at location A.
--- NOTE | ~2021-11-06 | CT_ITS ---
EXAMINATION: CT brain wo con DATE: 11/06/2021 16:10 INDICATION: Weakness and decreased sensation to the right side of the face. TECHNIQUE: Computed tomography (CT) of the head was performed without intravenous contrast. The dose- length product was 681.00 mGy-cm. Automated exposure control and iterative reconstruction technique w ere employed. COMPARISON: CT dated 08/14/2021 FINDINGS: Generalized atrophy. There are scattered severe periventricular and subcortical white matte r changes, most likely related to small vessel ischemic disease (microangiopathy). No acute intracran ial hemorrhage, infarction, mass or mass effect. No midline shift. There is intracranial atherosclero sis. Paranasal sinuses and mastoids are pneumatized. No depressed skull fractures. There is a promine nt perivascular space in the right basal ganglia. IMPRESSION: 1. No acute intracranial abnormality. 2: Chronic age-related findings. Reviewed, dictated and finalized at location A.
--- NOTE | ~2021-11-06 | MR_ITS ---
EXAMINATION: MR lumbar spine wo con DATE: 11/10/2021 14:12 INDICATION: Bilateral lower extremity weakness. Incontinence. TECHNIQUE: Magnetic resonance imaging (MRI) of the lumbar spine was performed without intravenous con trast. Sequences included sagittal T2-weighted FSE, sagittal T2-weighted FS FSE, sagittal T1-weighted FSE, and axial T2-weighted FSE. COMPARISON: Lumbar spine MRI 01/10/2021 FINDINGS: There is 6 degrees dextrocurvature of lumbar spine. There is mild chronic anterior wedging of T12 and L1 vertebral bodies, likely physiologic. There is a hemangioma in L1 vertebral body. There is mildly decreased disc height at L1-L2 and severely decreased disc height at L5-S1 with endplate r emodeling. The distal spinal cord signal intensity is normal. The conus medullaris is at L1. The foll owing disc levels are specifically discussed: L1-L2: The disc is bulging. There is mild bilateral facet joint osteoarthritis. There is mild left ne ural foraminal stenosis. There is mild central canal stenosis. L2-L3: There is a left foraminal protrusion. There is mild bilateral facet joint osteoarthritis. Ther e is mild left neural foraminal stenosis. There is no central canal stenosis. L3-L4: The disc is mildly bulging. There is mild bilateral facet joint osteoarthritis. There is mild bilateral neural foraminal stenosis. There is no central canal stenosis. L4-L5: There is a right foraminal protrusion. There is mild right facet joint osteoarthritis. There i s mild right neural foraminal stenosis. There is no central canal stenosis. L5-S1: The disc is bulging and has an annular fissure. There is mild bilateral facet joint osteoarthr itis. There is moderate right and mild left neural foraminal stenosis. There is mild central canal st enosis. IMPRESSION: 1. Moderate lumbar spondylosis, stable from 01/10/2021. Reviewed, dictated and finalized at location A.
--- NOTE | 2021-11-06 15:05 | PC.NURSE ---
maxi lite used to move patient from wheelchair to stretcher.
--- NOTE | 2021-11-06 15:06 | ECG_ITS ---
Measurements Intervals [place] Rate: 96 P: 16 [place]: 126 QRS: -6 QRSD: 95 T: 35 QT: 325 QTc: 412 Interpretive Statements SINUS RHYTHM CONSIDER INFERIOR INFARCT, AGE INDETERMINATE BASELINE ARTIFACT- I, II, III, AVR, AVL, AVF, V1, V5 ABNORMAL ECG Electronically Signed On 11-06-2021 20:18:49 CDT by Franko Carey D.O.
[2021-11-06 15:21] LABS: Basophils Absolute Auto 0.1 K/mm3 (0.0-0.1); Basophils Percent Auto 0.4 % (0.2-1.2); Eosinophils Percent Auto 0.1 % (0-4.4); Hematocrit 43.9 % (42.0-52.0); Immature Granulocyte Absolute 0.06 K/mm3 (0.00-0.031); Immature Granulocyte Percent A 0.5 % (0-0.5); Lymphocytes Absolute Auto 2.01 K/mm3 (0.9-3.2); Lymphocytes Percent Auto 15.6 % (18.3-44.2); Mean Corpuscular HGB Conc 31.9 g/dl (32-36); Mean Corpuscular Hemoglobin 28.3 pg (26-34); Mean Corpuscular Volume 88.7 fl (80-100); Mean Platelet Volume 11.1 fl (7.4-10.4); Monocytes Absolute Auto 1.2 K/mm3 (0.1-0.6); Monocytes Percent Auto 9.5 % (2.6-8.5); Neutrophils Absolute Auto 9.5 K/mm3 (1.3-6.7); Neutrophils Percent Auto 73.9 % (45.5-73.1); Platelet Count Result 217 k/mm3 (150-375); Red Blood Count 4.95 M/mm3 (4.6-6.20); Red Cell Distribution Width 13.2 % (11.5-14.5); White Blood Count 12.9 K/mm3 (4.5-10.0)
[2021-11-06 15:33] LABS: Alanine Aminotransferase 18 U/L (6-50); Albumin Level 4.3 g/dL (3.5-5.1); Alkaline Phosphatase 103 U/L (38-126); Anion Gap 9 mmol/L (8-16); Aspartate Amino Transferase 25 U/L (17-59); Bilirubin,Total 1.4 mg/dL (0.2-1.3); Blood Urea Nitrogen 13 mg/dL (9-20); Calcium 8.6 mg/dL (8.4-10.2); Carbon Dioxide 24 mmol/L (22-30); Chloride 102 mmol/L (98-107); Estimated CRCL calculation 95 ml/min; Estimated Glomerular Filt Rate > 60; Glucose 128 mg/dL (65-110); Sodium 135 mmol/L (137-145)
[2021-11-06] MEDS: SODIUM CHLORIDE 0.9% IV 1,000 ML 999 ML IV CONT ×2 (15:49→17:53)
[2021-11-06 16:07] LABS: Lactic Acid Reflex 1.6 mmol/L (0.7-2.0)
[2021-11-06 16:33] LABS: Influenza A QL RT-PCR Negative (Negative); Influenza B QL RT-PCR Negative (Negative); SARS-CoV-2 RNA PCR Negative
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
[2021-11-06 17:20] LABS: Troponin I < 0.012 ng/mL (0.000-0.034)
[2021-11-06 18:03] LABS: Appearance Urine Clear (Clear); Bilirubin Urine Negative (Negative); Blood Urine 3+ (Negative); Color Urine Yellow (Yellow); Glucose Urine UA Negative (Negative); Ketones Urine Negative (Negative); Leukocyte Esterase Ur Negative LEU/UL (Negative); Nitrate Urine Negative (Negative); Protein Urine 2+ mg/dL (Negative); Specific Grav Ur 1.025 (1.001-1.035)
[2021-11-06 18:08] LABS: Mucus Urine Rare /lpf; RBC Urine >75 /hpf (0-2); Squamous Epithelial Cell Urine Rare /hpf (Few)
[2021-11-06 18:10] LABS: Add Urine Microscopic? YES
[2021-11-06] MEDS: ONDANSETRON INJ 4 MG/2 ML VIAL IV PUSH (19:02)
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
--- NOTE | 2021-11-06 21:15 | ADMGEN ---
This patient, Tashi Esposito, was admitted to 2 Medical Room 259-01. Patient/family oriented to hospital policies and general routines including ID bracelet, bed and alarms, visiting hours, pain management, procedures, bathroom and other care routines, personal items, smoking policy, room service/diet, and visiting hours. Information on how to activate the Rapid Response Team has been discussed. Patient/Family are encouraged to report perceived risks to care and to ask questions if they do not understand what they are told or what they should do.
[2021-11-06] MEDS: SODIUM CHLORIDE 0.9% IV 1,000 ML 100 ML IV CONT (21:39)
[2021-11-07] VITALS (8 sets, daily range): BP systolic 116–147; BP diastolic 74–89; PULSE 69–92; RESP 18–20; TEMP 37–37.9; O2SAT 94–98
[2021-11-07 05:54] LABS: Hemoglobin 12.7 g/dL (14.0-18.0); Mean Corpuscular HGB Conc 33.4 g/dl (32-36); Mean Corpuscular Volume 86.8 fl (80-100); Platelet Count Result 180 k/mm3 (150-375); Red Blood Count 4.38 M/mm3 (4.6-6.20); Red Cell Distribution Width 13.2 % (11.5-14.5); White Blood Count 11.7 K/mm3 (4.5-10.0)
[2021-11-07 06:11] LABS: Anion Gap 9 mmol/L (8-16); Blood Urea Nitrogen 12 mg/dL (9-20); Calcium 7.8 mg/dL (8.4-10.2); Carbon Dioxide 19 mmol/L (22-30); Chloride 104 mmol/L (98-107); Estimated CRCL calculation 96 ml/min; Estimated Glomerular Filt Rate > 60; Glucose 116 mg/dL (65-110); Potassium 4.2 mmol/L (3.4-5.0); Sodium 132 mmol/L (137-145)
--- NOTE | 2021-11-07 07:41 | PM.IMPN ---
Progress Note: A&P Assessment and Plan (1) SIRS (systemic inflammatory response syndrome): Code(s): R65.10 - Systemic inflammatory response syndrome (SIRS) of non-infectious origin without acute organ dysfunction <Penny Cooney PA-C - Last Filed: 11/07/21 12:52> Status: Acute <Penny RonnDanilo Cooney PA-C - Last Filed: 11/07/21 12:52> Assessment and Plan: Meets SIRS criteria with fever, tachycardia, tachypnea, leukocytosis. WBC downtrending, patient is febrile today, but feels some improvement in his pain. Recent lithotripsy and stent placement left side, some intermittent left flank pain, urine culture has been ordered. CT abdomen pelvis showed nonobstructing right nephrolithiasis, left internal ureteral stent in position, mild bladder wall thickening which may be due to cystitis. Zosyn given in the ER, transitioned to Rocephin daily, will continue pending urine culture. <Penny Cooney PA-C - Last Filed: 11/07/21 12:52> (2) Generalized weakness: Code(s): R53.1 - Weakness <Penny Cooney PA-C - Last Filed: 11/07/21 12:52> Status: Acute <Penny Cooney PA-C - Last Filed: 11/07/21 12:52> Assessment and Plan: Likely due to underlying infection. Patient's history of MS has previously seen . Neurology consult placed and we do appreciate their inputs. <Penny Cooney PA-C - Last Filed: 11/07/21 12:52> (3) CAD (coronary artery disease): Qualifiers: Associated angina: unspecified whether angina present Coronary Disease-Associated Artery/Lesion type: [place] artery [place] vs. transplanted heart: [place] heart Qualified Code(s): I25.10 - Atherosclerotic heart disease of [place] coronary artery without angina pectoris <Penny Cooney PA-C - Last Filed: 11/07/21 12:52> Code(s): I25.10 - Atherosclerotic heart disease of [place] coronary artery without angina pectoris <Penny Cooney PA-C - Last Filed: 11/07/21 12:52> Status: Acute <Penny Phong Cooney PA-C - Last Filed: 11/07/21 12:52> Assessment and Plan: Continue patient's IMDUR, metoprolol, aspirin therapy. <Penny Cooney PA-C - Last Filed: 11/07/21 12:52> Subjective Date/time seen: 11/07/21 07:41 <Penny Cooney PA-C - Last Filed: 11/07/21 12:52> Interval history: 56-year-old male with past medical history? Nonobstructive coronary artery disease, hypertension, hyperlipidemia and chronic debility possibly due to MS who presented to the ER via EMS with complaints of increasing weakness.??he reports he has been having some intermittent flank pain since he was discharged from [facility] last week.? He denies any dysuria, hematuria or or changes in urinary frequency.? He has noticed darker urine but denies foul-smelling urine. He states his pain is improved some today. He is still very tired. He denies chest pain, shortness a breath, lower extremity swelling, or urinary changes. He has some left thigh pain. <Penny Cooney PA-C - Last Filed: 11/07/21 12:52> Review of Systems Review of Systems: All systems reviewed & are unremarkable except as noted in HPI and below <Penny Cooney PA-C - Last Filed: 11/07/21 12:52> Exam Narrative: GENERAL APPEARANCE: Alert and oriented x 3, in no apparent distress. HEENT: PERRL, EOMI. Sclerae anicteric. Moist mucous membranes. NECK: Supple. No JVD or obvious carotid bruits. RESPIRATORY: Respirations are nonlabored. Breath sounds are equal and clear bilaterally. No wheezes, Rhonchi, or rales. CARDIOVASCULAR: Regular rate and rhythm with normal S1-S2. No murmurs, gallops, or rubs. GASTROINTESTINAL: Soft, flat, and benign. No mass, tenderness, guarding, or rebound. No organomegaly or hernia. Bowel sounds are present. SKIN: Warm, dry, well perfused. Good turgor. No lesions, nodules, or rashes noted. EXTREMITIES: No cyanosis, clubbing, or edema. Radial and pedal pul
[2021-11-07] MEDS: SODIUM CHLORIDE 0.9% IV 1,000 ML 100 ML IV CONT ×2 (07:50→17:40)
[2021-11-07] MEDS: ENOXAPARIN 40 MG/0.4 ML SYRINGE SUB-Q (08:19)
[2021-11-07] MEDS: ISOSORBIDE MONONITRATE 15 MG TAB.ER.24H PO (08:19)
[2021-11-07] MEDS: ASPIRIN 81 MG CHEWABLE TABLET PO (08:19)
[2021-11-07] MEDS: polyethylene glycoL 3350 17 GM POWD.PACK PO (08:20)
[2021-11-07] MEDS: ROSUVASTATIN 10 MG TABLET 40 MG PO (08:20)
[2021-11-07] MEDS: METOPROLOL SUCCINATE EXT REL 25 MG TABCR PO (08:20)
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
[2021-11-08] VITALS (10 sets, daily range): BP systolic 108–135; BP diastolic 69–79; PULSE 61–84; RESP 12–22; TEMP 36.1–37.1; O2SAT 94–99
[2021-11-08 03:48] LABS: Glucose Point of Care 110 mg/dl (65-105)
[2021-11-08] MEDS: SODIUM CHLORIDE 0.9% IV 1,000 ML 100 ML IV CONT ×2 (04:38→16:36)
[2021-11-08 08:15] LABS: Hematocrit 41.9 % (42.0-52.0); Hemoglobin 13.3 g/dL (14.0-18.0); Mean Corpuscular HGB Conc 31.7 g/dl (32-36); Mean Corpuscular Hemoglobin 28.7 pg (26-34); Mean Corpuscular Volume 90.3 fl (80-100); Platelet Count Result 171 k/mm3 (150-375); Red Blood Count 4.64 M/mm3 (4.6-6.20); Red Cell Distribution Width 13.3 % (11.5-14.5); White Blood Count 8.8 K/mm3 (4.5-10.0)
[2021-11-08 08:28] LABS: Anion Gap 9 mmol/L (8-16); Blood Urea Nitrogen 14 mg/dL (9-20); Calcium 8.3 mg/dL (8.4-10.2); Carbon Dioxide 23 mmol/L (22-30); Chloride 105 mmol/L (98-107); Estimated CRCL calculation 96 ml/min; Estimated Glomerular Filt Rate > 60; Glucose 145 mg/dL (65-110); Potassium 3.9 mmol/L (3.4-5.0); Sodium 137 mmol/L (137-145)
[2021-11-08] MEDS: ENOXAPARIN 40 MG/0.4 ML SYRINGE SUB-Q (09:03)
[2021-11-08] MEDS: ASPIRIN 81 MG CHEWABLE TABLET PO (09:03)
[2021-11-08] MEDS: ISOSORBIDE MONONITRATE 15 MG TAB.ER.24H PO (09:04)
[2021-11-08] MEDS: METOPROLOL SUCCINATE EXT REL 25 MG TABCR PO (09:05)
[2021-11-08] MEDS: polyethylene glycoL 3350 17 GM POWD.PACK PO (09:06)
[2021-11-08] MEDS: ROSUVASTATIN 10 MG TABLET 40 MG PO (09:07)
--- NOTE | 2021-11-08 10:21 | PM.IMPN ---
Progress Note: A&P Assessment and Plan (1) SIRS (systemic inflammatory response syndrome): Code(s): R65.10 - Systemic inflammatory response syndrome (SIRS) of non-infectious origin without acute organ dysfunction Status: Acute Assessment and Plan: Meets SIRS criteria with low-grade fever (T-max 100.5?) tachycardia, tachypnea, leukocytosis. Leukocytosis has resolved and patient is afebrile today Recent lithotripsy and left ureteral stent placement, some intermittent left flank pain. Patient asymptomatic today. Urine culture is pending. Continue IV Rocephin 1 g daily pending urine culture results CT abdomen pelvis showed nonobstructing right nephrolithiasis, left internal ureteral stent in position, mild bladder wall thickening which may be due to cystitis. (2) Generalized weakness: Code(s): R53.1 - Weakness Status: Acute Assessment and Plan: Likely due to suspected underlying infection. Patient has history of MS, established with Neurology. Has outpatient follow-up with MS Clinic and neuro surgery Appreciate neurology consultation PT/OT gene appreciated TSH normal. Will evaluate B12 and folate (3) CAD (coronary artery disease): Qualifiers: Coronary Disease-Associated Artery/Lesion type: [place] artery [place] vs. transplanted heart: [place] heart Associated angina: unspecified whether angina present Qualified Code(s): I25.10 - Atherosclerotic heart disease of [place] coronary artery without angina pectoris Code(s): I25.10 - Atherosclerotic heart disease of [place] coronary artery without angina pectoris Status: Acute Assessment and Plan: No acute issues Continue home Imdur, metoprolol, aspirin therapy. Subjective Date/time seen: 11/08/21 10:21 Interval history: Date of service: 11/08/2021 Tashi Esposito is a 56-year-old male with a history of CAD, hypercholesterolemia, GERD, suspected multiple sclerosis, and recent left ureteral stent placement who is seen in follow-up for weakness. He states he was having troubles and ?could not get up. ? He complains of right leg numbness which has been ongoing for quite some time. He has been followed by neurology for this and has plans to follow-up with an MS clinic and with a neurosurgeon. He was recently fitted for a brace for his right leg and seems to be doing okay with this. His concern now is that his left leg seems to be ?not working? and it hurts with movement. He sometimes feels as though he has to lift the leg up with his arms to get it to move. He feels weak overall. Feels like he has lost strength throughout his body. He denies dizziness or lightheadedness. His last bowel was 5 days. He states he has been struggling with constipation recently. He denies dysuria, hematuria, urgency, frequency, suprapubic pain or flank pain. He does have some chronic low back pain. He denies fevers, chills, nausea, vomiting. He is tolerating his diet. Review of Systems Review of Systems: All systems reviewed & are unremarkable except as noted in HPI and below Exam Narrative: General: well-nourished, well-appearing 56-year-old male, sitting in a chair by the bedside, comfortable, NARD Neuro: awake, alert and oriented x4, speech clear, CN II-XII intact, sensation intact, no pronator drift, bilateral material handling equipment stevedore strength equal, able to perform rapid alternating movements, able to perform finger to nose, strength 5/5 in upper extremities, 4/5 strength in lower extremities HEENMT: normocephalic, atraumatic, EOMI, sclerae anicteric, moist oral mucosa Respiratory: clear to auscultation bilaterally, nonlabored breathing Cardio: regular rate, regular rhythm with S1-S2 Abdomen: nondistended, normoactive bowel sounds, soft, nontender to palpation Extremities: no edema, erythema, or tenderness to palpation, DP pulses 2+ bilaterally Skin: no rashes or lesions, warm and dry Psych: appropriate mood and affect, judgment
[2021-11-08] MEDS: DOCUSATE SODIUM 100 MG CAPSULE PO ×2 (11:39→20:15)
[2021-11-09] VITALS (9 sets, daily range): BP systolic 107–132; BP diastolic 58–81; PULSE 60–70; RESP 14–20; TEMP 36.4–36.8; O2SAT 94–99
[2021-11-09] MEDS: SODIUM CHLORIDE 0.9% IV 1,000 ML 100 ML IV CONT (04:15)
[2021-11-09 05:53] LABS: Hematocrit 38.2 % (42.0-52.0); Hemoglobin 12.2 g/dL (14.0-18.0); Mean Corpuscular HGB Conc 31.9 g/dl (32-36); Mean Corpuscular Hemoglobin 28.4 pg (26-34); Mean Platelet Volume 11.2 fl (7.4-10.4); Platelet Count Result 196 k/mm3 (150-375); Red Blood Count 4.29 M/mm3 (4.6-6.20); Red Cell Distribution Width 13.2 % (11.5-14.5); White Blood Count 8.4 K/mm3 (4.5-10.0)
[2021-11-09 06:04] LABS: Anion Gap 6 mmol/L (8-16); Blood Urea Nitrogen 15 mg/dL (9-20); Calcium 8.2 mg/dL (8.4-10.2); Carbon Dioxide 27 mmol/L (22-30); Chloride 104 mmol/L (98-107); Estimated CRCL calculation 96 ml/min; Estimated Glomerular Filt Rate > 60; Glucose 107 mg/dL (65-110); Sodium 137 mmol/L (137-145)
[2021-11-09 07:12] LABS: Folic Acid 7.2 ng/mL (2.76->20)
[2021-11-09] MEDS: ISOSORBIDE MONONITRATE 15 MG TAB.ER.24H PO (09:10)
[2021-11-09] MEDS: ROSUVASTATIN 10 MG TABLET 40 MG PO (09:10)
[2021-11-09] MEDS: CEFDINIR 300 MG CAPSULE PO ×2 (09:11→20:39)
[2021-11-09] MEDS: ASPIRIN 81 MG CHEWABLE TABLET PO (09:11)
[2021-11-09] MEDS: ENOXAPARIN 40 MG/0.4 ML SYRINGE SUB-Q (09:11)
[2021-11-09] MEDS: METOPROLOL SUCCINATE EXT REL 25 MG TABCR PO (09:11)
--- NOTE | 2021-11-09 09:37 | PM.IMPN ---
Progress Note: A&P Assessment and Plan (1) SIRS (systemic inflammatory response syndrome): Code(s): R65.10 - Systemic inflammatory response syndrome (SIRS) of non-infectious origin without acute organ dysfunction Status: Acute Assessment and Plan: Meets SIRS criteria with low-grade fever (T-max 100.5?) tachycardia, tachypnea, leukocytosis. Leukocytosis has resolved and patient is afebrile today Recent lithotripsy and left ureteral stent placement, some intermittent left flank pain. Patient asymptomatic today. Urine culture is pending. Continue IV Rocephin 1 g daily pending urine culture results CT abdomen pelvis showed nonobstructing right nephrolithiasis, left internal ureteral stent in position, mild bladder wall thickening which may be due to cystitis. (2) Generalized weakness: Code(s): R53.1 - Weakness Status: Acute Assessment and Plan: Likely due to suspected underlying infection. Patient currently does not have a definitive diagnosis of MS however he is following with a neurologist. Patient has had a back injury approximately 2 years ago. An MRI performed January of 2021 revealed bulging disc to the L4 and 5. Patient also has a urinary and fecal incontinence. Repeat imaging Appreciate neurology consultation PT/OT gene appreciated TSH normal. Will evaluate B12 and folate (3) CAD (coronary artery disease): Qualifiers: Coronary Disease-Associated Artery/Lesion type: [place] artery [place] vs. transplanted heart: [place] heart Associated angina: unspecified whether angina present Qualified Code(s): I25.10 - Atherosclerotic heart disease of [place] coronary artery without angina pectoris Code(s): I25.10 - Atherosclerotic heart disease of [place] coronary artery without angina pectoris Status: Acute Assessment and Plan: No acute issues Continue home Imdur, metoprolol, aspirin therapy. Subjective Date/time seen: 11/09/21 09:37 Interval history: Date of service: 11/08/2021 Patient is alert and oriented x4. He reports he is currently being worked up for multiple sclerosis. However the patient does not have any visual changes. He had a lumbar puncture performed which was negative. Does have a walking boot to the right lower extremities he reports he has right leg numbness and tingling and decreased mobilization. Patient also states that his left leg has begun to do the same as well. He is incontinent of bowel and bladder. Patient had a back injury approximately 2 years ago wherein to January of 2021 patient had an MRI done which reported an L4-L5 bulging discs. Will repeat scan. Patient states that the bowel and urinary incontinence began after his back injury as well as the bilateral lower extremity weakness. Review of Systems Review of Systems: All systems reviewed & are unremarkable except as noted in HPI and below Exam Narrative: General: well-nourished, well-appearing 56-year-old male, sitting in a chair by the bedside, comfortable, NARD Neuro: awake, alert and oriented x4, speech clear, CN II-XII intact, HEENMT: normocephalic, atraumatic, EOMI, sclerae anicteric, moist oral mucosa Respiratory: clear to auscultation bilaterally, nonlabored breathing Cardio: regular rate, regular rhythm with S1-S2 Abdomen: nondistended, normoactive bowel sounds, soft, nontender to palpation Extremities: no edema, erythema, or tenderness to palpation, DP pulses 2+ bilaterally, brace to the right lower extremity decreased sensation of bilateral lower extremities. sensation intact bilateral upper extremities no pronator drift, bilateral gis analyst developer strength equal, able to perform rapid alternating movements, able to perform finger to nose, strength 5/5 in upper extremities, 4/5 strength in lower extremities Skin: no rashes or lesions, warm and dry Psych: appropriate mood and affect, judgment and insight intact Objective Data Vital Signs Vital Signs:
--- NOTE | 2021-11-09 12:05 | WPDNEURCNPN ---
Assessment and Plan Assessment and plan (1) Neurologic gait dysfunction: Code(s): R26.9 - Unspecified abnormalities of gait and mobility Status: Acute Plan 1. Speech spinal spondylosis but no stenosis will have intermittent chronic back pain but no surgical intervention necessary2 previous MRIs are not diagnostic of MS patient has been told that he has demyelinating disease though he is not taking any treatment if he concurred into the spinal fluid studies to rule out the possible demyelinating disease but at this stage is completely comfortable 3 once he gets discharged from where he will be followed by us in the office Additional Plan follow-up in the office and EMG nerve conduction study as an outpatient Consult date: 11/09/21 Time Seen: 11:30 HPI: Tashi Esposito is a 56 year old male Admitted to the hospital through the emergency room with history of coronary artery disease, hyperlipidemia, generalized weakness, of several years duration in addition to being worse on the day of admission to the ER along with the complaints of nausea and lower abdominal pain and constipation of 5 days duration patient has undergone multiple MRIs and spinal tap by the neurologist in the past and he was advised that he has ongoing diagnosis of multiple sclerosis at the time of admission to the hospital this time he was taking aspirin 81 mg daily metoprolol 25 mg daily rosuvastatin 40 mg daily in oxybutynin 10 mg daily MRI in June of 2021 demonstrated extensive cerebellar and cerebral white matter disease involving the brainstem in addition to the ongoing history of fractured right clavicle and fractured ribs and fracture spinal process, patient is not a smoker not a drinker not a substance user initial evaluation to the ER revealed him to be tachycardic with blood pressure 154/89 temp of 100.3? CT scan of the abdomen pelvis was compatible with possible cystitis and nonobstructive renal stones for which he had the lithotripsy procedure 2 weeks ago and MRI of the neck with and without contrast on October 05 his right subclavian artery was poorly visualized [place] the right vertebral origin but rest was study was unremarkable he was noted to have normal cervical spinal cord on the MRI of cervical spine thoracic spine was suggested mild levoscoliosis but spinal cord was normal without any demyelinating disease changes and pelvic CT scan was suggestive of bilateral nephrolithiasis. Additionally patient does have history of esophagitis girl seasonal allergies. Since admission to [facility] he has remained with normal WBCs hemoglobin 12.2 platelet count 190 chemistry normal with calcium 8.2, UA negative serology neck, most recent CT scan reveals severe lower lumbar spondylosis but mild central canal stenosis at different levels is stable from the study done on January 03, [address] of the head is negative urine culture positive coag-negative staph and blood cultures negative Review of Systems Review of Systems: All systems reviewed & are unremarkable except as noted in HPI and below PMFSH Past Medical History Medical History Coronary artery disease Erosive esophagitis GERD (gastroesophageal reflux disease) Hypercholesterolemia Multiple sclerosis Suspected with MRI the brain 07/08/2021 demonstrating extensive cerebellar and cerebral white matter disease and disease of the brainstem which may represent chronic small-vessel ischemic disease or multiple sclerosis. Seasonal allergies Surgical History Surgical History H/O cardiac catheterization No stents, on metoprolol History of orthopedic surgery Fractured right clavicle, fractured rib, fractured spinal process 2018 Hx of tonsillectomy Family History Family History Mother Diabetes mellitus Father Malignant neoplasm of prostate Heart disease
[2021-11-09] MEDS: DOCUSATE SODIUM 100 MG CAPSULE PO (20:39)
[2021-11-10 00:41] VITALS: BP 122/74; PULSE 60; RESP 16; TEMP 36.9; O2SAT 96
[2021-11-10 06:00] VITALS: BP 125/80; PULSE 57; RESP 20; TEMP 36.4; O2SAT 95
[2021-11-10 06:18] LABS: Alanine Aminotransferase 48 U/L (6-50); Albumin Level 3.7 g/dL (3.5-5.1); Alkaline Phosphatase 107 U/L (38-126); Anion Gap 6 mmol/L (8-16); Aspartate Amino Transferase 35 U/L (17-59); Basophils Absolute Auto 0.1 K/mm3 (0.0-0.1); Basophils Percent Auto 0.8 % (0.2-1.2); Bilirubin,Total 0.6 mg/dL (0.2-1.3); Blood Urea Nitrogen 14 mg/dL (9-20); Calcium 8.5 mg/dL (8.4-10.2); Carbon Dioxide 28 mmol/L (22-30); Chloride 103 mmol/L (98-107); Eosinophils Absolute Auto 0.5 K/mm3 (0-0.3); Eosinophils Percent Auto 6.8 % (0-4.4); Estimated CRCL calculation 87 ml/min; Estimated Glomerular Filt Rate > 60; Glucose 101 mg/dL (65-110); Hematocrit 38.8 % (42.0-52.0); Hemoglobin 12.9 g/dL (14.0-18.0); Immature Granulocyte Absolute 0.02 K/mm3 (0.00-0.031); Immature Granulocyte Percent A 0.3 % (0-0.5); Lymphocytes Absolute Auto 2.46 K/mm3 (0.9-3.2); Lymphocytes Percent Auto 30.8 % (18.3-44.2); Magnesium 2.2 mg/dL (1.6-2.3); Mean Corpuscular HGB Conc 33.2 g/dl (32-36); Mean Corpuscular Hemoglobin 29.1 pg (26-34); Mean Corpuscular Volume 87.6 fl (80-100); Mean Platelet Volume 11.2 fl (7.4-10.4); Monocytes Absolute Auto 0.6 K/mm3 (0.1-0.6); Monocytes Percent Auto 7.6 % (2.6-8.5); Neutrophils Absolute Auto 4.3 K/mm3 (1.3-6.7); Neutrophils Percent Auto 53.7 % (45.5-73.1); Platelet Count Result 218 k/mm3 (150-375); Potassium 3.7 mmol/L (3.4-5.0); Red Blood Count 4.43 M/mm3 (4.6-6.20); Red Cell Distribution Width 12.9 % (11.5-14.5); Sodium 137 mmol/L (137-145)
[2021-11-10] MEDS: DOCUSATE SODIUM 100 MG CAPSULE PO (08:06)
[2021-11-10] MEDS: ISOSORBIDE MONONITRATE 15 MG TAB.ER.24H PO (08:06)
[2021-11-10] MEDS: CEFDINIR 300 MG CAPSULE PO (08:06)
[2021-11-10] MEDS: ASPIRIN 81 MG CHEWABLE TABLET PO (08:06)
[2021-11-10] MEDS: ROSUVASTATIN 10 MG TABLET 40 MG PO (08:06)
[2021-11-10 08:07] VITALS: PULSE 65
[2021-11-10] MEDS: METOPROLOL SUCCINATE EXT REL 25 MG TABCR PO (08:07)
[2021-11-10] MEDS: polyethylene glycoL 3350 17 GM POWD.PACK PO (08:08)
[2021-11-10] MEDS: ENOXAPARIN 40 MG/0.4 ML SYRINGE SUB-Q (08:08)
[2021-11-10 08:11] VITALS: PULSE 82
--- NOTE | 2021-11-10 10:32 | PM.DS ---
DS: Admitting Diagnosis Discharge Date 11/10/2021 Admitting Diagnosis Urinary tract infection Generalized weakness DS: Discharge Diagnosis Discharge Diagnosis (1) SIRS (systemic inflammatory response syndrome): Code(s): R65.10 - Systemic inflammatory response syndrome (SIRS) of non-infectious origin without acute organ dysfunction Status: Acute Assessment and Plan: Meets SIRS criteria with low-grade fever (T-max 100.5?) tachycardia, tachypnea, leukocytosis. Leukocytosis has resolved and patient is afebrile today Recent lithotripsy and left ureteral stent placement, some intermittent left flank pain. Patient asymptomatic today. Urine culture is pending. Continue IV Rocephin 1 g daily pending urine culture results CT abdomen pelvis showed nonobstructing right nephrolithiasis, left internal ureteral stent in position, mild bladder wall thickening which may be due to cystitis. (2) Generalized weakness: Code(s): R53.1 - Weakness Status: Acute Assessment and Plan: Likely due to suspected underlying infection. Patient currently does not have a definitive diagnosis of MS however he is following with a neurologist. Patient has had a back injury approximately 2 years ago. An MRI performed January of 2021 revealed bulging disc to the L4 and 5. Patient also has a urinary and fecal incontinence. Repeat imaging Appreciate neurology consultation PT/OT gene appreciated TSH normal. Will evaluate B12 and folate (3) CAD (coronary artery disease): Qualifiers: Associated angina: unspecified whether angina present Coronary Disease-Associated Artery/Lesion type: [place] artery [place] vs. transplanted heart: [place] heart Qualified Code(s): I25.10 - Atherosclerotic heart disease of [place] coronary artery without angina pectoris Code(s): I25.10 - Atherosclerotic heart disease of [place] coronary artery without angina pectoris Status: Acute Assessment and Plan: No acute issues Continue home Imdur, metoprolol, aspirin therapy. DS: Summary Hospital Course Reason for hospitalization: Generalized weakness UTI Hospital Course: Patient is a 56-year-old male with past medical history of nonobstructive CAD, hypertension, hyperlipidemia and chronic debility. Patient reportedly reports his chronic debility due to MS however he does not have a definitive diagnosis of this. MRI obtained does not revealed demyelinating. Patient was supposed to follow-up with the Neurosurgery on an outpatient basis. However Neurology was consulted during his inpatient stay. Patient did present to the emergency department via EMS with complaints of increased weakness. The patient has chronic debility and is dependent upon a walker from was 2 years. Of note the patient did have a back injury 2 years ago which reported an MRI of January of 2021 with L3, L4 and L5 disc bulging with narrowing. Patient also reports wearing an AFO boot due to footdrop. He has been evaluated by Dr. Arreaga here in our facility and Dr. Ayon for 2nd opinion regarding neurological changes. He reports that he does not have definitive diagnosis. He has recently been seen at [facility] for left kidney stone and had developed intermittent flank pain at that time was discharged from [place] approximately a week prior to our admission. He denies any dysuria, hematuria or changes in urinary frequency. Patient is incontinent of urine and bowel. He has been having nausea for the last couple of days prior to admission but denies episodes of emesis. He has endorsed decreased appetite and increasing weakness and unable to mobilize the. Therefore he called EMS to bring him here to the hospital. While in the emergency department he was noted to be afebrile and shortly after admission he spiked another temperature of a 100.5?. He denies any recent ill contacts. He denies any headache, rhinorrhea or upper respi
[2021-11-10 10:35] VITALS: BP 117/77; PULSE 65; RESP 20; TEMP 36.4; O2SAT 98
[2021-11-10 14:31] VITALS: BP 119/81; PULSE 72; RESP 18; TEMP 36.7; O2SAT 99
== END 2021-11-10 18:10 | disposition home or self-care (01) ==
LOC: ANHED 15:49 → ANH2MED 20:52
PROVIDERS: Emergency Medicine; Internal Medicine; Nurse Practitioner Family; Physician Assistant; Student in an Organized Health Care Education/Training Program; Admitting Provider Family Medicine; Emergency Provider Emergency Medicine; PCP Family Medicine; Visit Provider Physician Assistant
DX: R53.1 Weakness (principal); R65.10 Systemic inflammatory response syndrome (SIRS) of non-infectious origin without acute organ dysfunction; R26.9 Unspecified abnormalities of gait and mobility; I25.10 Atherosclerotic heart disease of native coronary artery without angina pectoris; E78.5 Hyperlipidemia, unspecified; K21.00 Gastro-esophageal reflux disease with esophagitis, without bleeding; E78.00 Pure hypercholesterolemia, unspecified; I10 Essential (primary) hypertension; Z79.82 Long term (current) use of aspirin; Z20.822 Contact with and (suspected) exposure to COVID-19
CPT/HCPCS: 36415; 70450; 71046; 72131; 72148; 74176; 80048; 80053; 81001; 82607; 82746; 82948; 83605; 83735; 84484; 85025; 85027; 87040; 87077; 87086; 87088; 87502; 93005; 96360; 96361; 96365; 96372; 96375; 97110; 97116; 97161; 97165; 97530; 99285; A9270; C9803; G0378; J0696; J1650; J2405; J2543; J7030; U0003; U0005

== ENCOUNTER 2021-11-27 13:31 | Outpatient (CLI) | payer OTHER, SELFPAY ==
--- NOTE | ~2021-11-27 | MR_ITS ---
EXAMINATION: MR abdomen wo/w con INDICATION: Liver mass TECHNIQUE: Coronal SSFSE ARC, WATER:coronal LAVA-FLEX, Coronal 2D FIESTA FatSat, Axial SSFSE BH ARC, Axial 3D DualEcho BH, Axial SSFSE-IR, Axial DWI b=500, Axial 2D FIESTA FatSat, pre and dynamic postco ntrast Axial LAVA ARC, postcontrast Coronal In and Opposed phase LAVA FLEX COMPARISON: 08/11/2018 CONTRAST: Multihance, 20 cc FINDINGS: There is a stable 3.5 x 2.8 cm mass in liver segment Kang which demonstrates intermediate T1 and T2 signal intensity with some stable areas of internal T2 hypointensity. Although limited by mot ion artifact, there is no evidence of enhancement after contrast administration. No additional liver lesion is identified. There is a 3 mm cyst of the spleen. The pancreas and adrenal glands are normal. There appear to be multiple layering stones in the nondistended gallbladder. There are no pathologic ally enlarged abdominal lymph nodes. There are no dilated loops of bowel. The kidneys are unremarkabl e. IMPRESSION: 1. Stable liver mass, consistent with a proteinaceous cyst. Reviewed, dictated and finalized at location A.
== END 2021-11-27 13:32 | disposition home or self-care (01) ==
PROVIDERS: PCP Family Medicine; Visit Provider Physician Assistant
DX: R16.0 Hepatomegaly, not elsewhere classified (principal); R65.10 Systemic inflammatory response syndrome (SIRS) of non-infectious origin without acute organ dysfunction
CPT/HCPCS: 74183; A9577

== ENCOUNTER 2022-03-16 15:59 | Emergency (ER) | payer OTHER, SELFPAY ==
[2022-03-16 15:59] VITALS: BP 142/76; PULSE 99; RESP 16; TEMP 36.4; O2SAT 99
[2022-03-16 16:16] LABS: Basophils Absolute Auto 0.1 K/mm3 (0.0-0.1); Basophils Percent Auto 0.6 % (0.2-1.2); Eosinophils Absolute Auto 0.3 K/mm3 (0-0.3); Eosinophils Percent Auto 3.3 % (0-4.4); Hematocrit 46.5 % (42.0-52.0); Immature Granulocyte Absolute 0.04 K/mm3 (0.00-0.031); Immature Granulocyte Percent A 0.4 % (0-0.5); Lymphocytes Absolute Auto 2.99 K/mm3 (0.9-3.2); Lymphocytes Percent Auto 31.4 % (18.3-44.2); Mean Corpuscular HGB Conc 32.3 g/dl (32-36); Mean Corpuscular Hemoglobin 28.6 pg (26-34); Mean Corpuscular Volume 88.6 fl (80-100); Mean Platelet Volume 11.4 fl (7.4-10.4); Monocytes Absolute Auto 0.5 K/mm3 (0.1-0.6); Monocytes Percent Auto 5.5 % (2.6-8.5); Neutrophils Absolute Auto 5.6 K/mm3 (1.3-6.7); Neutrophils Percent Auto 58.8 % (45.5-73.1); Platelet Count Result 243 k/mm3 (150-375); Red Blood Count 5.25 M/mm3 (4.6-6.20); Red Cell Distribution Width 13.6 % (11.5-14.5); White Blood Count 9.5 K/mm3 (4.5-10.0)
--- NOTE | 2022-03-16 16:29 | ECG_ITS ---
Measurements Intervals [place] Rate: 59 P: 16 [place]: 128 QRS: -15 QRSD: 92 T: 8 QT: 398 QTc: 397 Interpretive Statements SINUS BRADYCARDIA OTHERWISE UNREMARKABLE ECG COMPARED TO ECG 11/06/2021 16:28:18 SINUS BRADYCARDIA NOW PRESENT Electronically Signed On 03-17-2022 7:59:24 CDT by Clinton Wynn M.D.
[2022-03-16 16:34] LABS: Alanine Aminotransferase 29 U/L (6-50); Albumin Level 4.5 g/dL (3.5-5.1); Alkaline Phosphatase 108 U/L (38-126); Anion Gap 11 mmol/L (8-16); Aspartate Amino Transferase 30 U/L (17-59); Bilirubin,Total 0.8 mg/dL (0.2-1.3); Blood Urea Nitrogen 14 mg/dL (9-20); Calcium 8.8 mg/dL (8.4-10.2); Carbon Dioxide 25 mmol/L (22-30); Chloride 103 mmol/L (98-107); Estimated CRCL calculation 79 ml/min; Estimated Glomerular Filt Rate > 60; Glucose 189 mg/dL (65-110); Lipase 216 U/L (23-300); Potassium 4.3 mmol/L (3.4-5.0); Sodium 139 mmol/L (137-145)
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
[2022-03-16 16:40] LABS: Add Urine Microscopic? YES; Appearance Urine Cloudy (Clear); Bacteria Urine Trace /hpf; Bilirubin Urine Negative (Negative); Blood Urine Negative (Negative); Color Urine Yellow (Yellow); Glucose Urine UA Negative (Negative); Ketones Urine Negative (Negative); Leukocyte Esterase Ur Negative LEU/UL (Negative); Mucus Urine Heavy /lpf; Nitrate Urine Negative (Negative); Protein Urine 1+ mg/dL (Negative); Specific Grav Ur 1.025 (1.001-1.035); Squamous Epithelial Cell Urine Rare /hpf (Few); WBC Urine 0-3 /hpf
[2022-03-16 17:52] VITALS: BP 139/95; PULSE 66; RESP 20; O2SAT 97
== END 2022-03-16 18:02 | disposition home or self-care (01) ==
PROVIDERS: Emergency Medicine; Emergency Provider General Practice; PCP Family Medicine
DX: R11.0 Nausea (principal); I10 Essential (primary) hypertension; E78.5 Hyperlipidemia, unspecified; I25.10 Atherosclerotic heart disease of native coronary artery without angina pectoris; K22.10 Ulcer of esophagus without bleeding; K21.9 Gastro-esophageal reflux disease without esophagitis; R00.1 Bradycardia, unspecified
CPT/HCPCS: 36415; 51701; 80053; 81001; 83690; 85025; 93005; 99283

== ENCOUNTER 2022-03-28 08:27 | Outpatient (CLI) | payer OTHER, SELFPAY ==
--- NOTE | ~2022-03-28 | US_ITS ---
EXAMINATION: US abdomen limited DATE: 03/28/2022 09:07 INDICATION: Right upper quadrant abdominal pain. TECHNIQUE: Multiple grayscale and Doppler ultrasound images of the abdomen were obtained. COMPARISON: MRI 11/27/2021 FINDINGS: The visualized portions of the head of the pancreas are normal. The liver is normal without focal lesion. There is normal flow in main portal vein. The gallbladder is normal in size. No gallst ones or gallbladder wall thickening. There was no sonographic Cervantes sign. The common duct is normal and measures 6 mm. IMPRESSION: 1. Normal right upper quadrant ultrasound. Reviewed, dictated and finalized at location B.
== END 2022-03-28 08:28 | disposition home or self-care (01) ==
PROVIDERS: PCP Family Medicine; Visit Provider Nurse Practitioner Family
DX: K80.20 Calculus of gallbladder without cholecystitis without obstruction (principal); R10.11 Right upper quadrant pain
CPT/HCPCS: 76705

== ENCOUNTER 2022-09-06 09:12 | Outpatient (CLI) | payer MEDICARE, SELFPAY ==
[2022-09-06 10:43] LABS: Alanine Aminotransferase 21 U/L (6-50); Albumin Level 4.5 g/dL (3.5-5.1); Alkaline Phosphatase 94 U/L (38-126); Anion Gap 10 mmol/L (8-16); Aspartate Amino Transferase 24 U/L (17-59); Bilirubin,Total 0.9 mg/dL (0.2-1.3); Blood Urea Nitrogen 14 mg/dL (9-20); Calcium 8.6 mg/dL (8.4-10.2); Carbon Dioxide 26 mmol/L (22-30); Chloride 103 mmol/L (98-107); Estimated Glomerular Filt Rate > 60; Glucose 124 mg/dL (65-110); Potassium 3.9 mmol/L (3.4-5.0); Sodium 139 mmol/L (137-145)
== END 2022-09-06 09:13 | disposition home or self-care (01) ==
PROVIDERS: PCP Family Medicine; Visit Provider Physician Assistant
DX: I10 Essential (primary) hypertension (principal); R73.01 Impaired fasting glucose
CPT/HCPCS: 36415; 80053; 83036

== ENCOUNTER 2023-03-11 18:16 | Observation (INO) | payer MEDICARE, SELFPAY ==
--- NOTE | ~2023-03-11 | MR_ITS ---
MRI of the lumbar spine Clinical History: Lower extremity weakness Technique: Axial T2-weighted images, and sagittal T1-weighted, T2-weighted, and and T2 fat-sat images were acquired. COMPARISON: 11/10/2021 Findings: No fracture identified. Minimal grade 1 retrolisthesis of L5 over S1 is present. No suspici ous bone marrow signal abnormality seen. At L1-L2, there is moderate degenerative disc narrowing. There is minimal disc bulge and mild to mode rate facet arthropathy. No central canal stenosis or neural foraminal narrowing. At L2-L3, there is minimal disc bulge. There is mild to moderate facet arthropathy. No central canal stenosis or neural foraminal narrowing. L3-L4, there is minimal disc bulge and mild to moderate facet arthropathy. No central canal stenosis or neural foraminal narrowing. At L4-L5, there is mild disc bulge and mild facet arthropathy. No central canal stenosis. There is mi ld right neural foraminal narrowing. Left neural foramen preserved. At L5-S1, there is disc bulge and moderate facet arthropathy, right worse than left. There is severe right neural foraminal narrowing and mild to moderate left neural foraminal narrowing. No central can al stenosis. Paravertebral soft tissues are unremarkable. Impression: Moderate degenerative spondylosis at L5-S1. Mild degenerative change in the remainder of the lumbar spine, as detailed above. Minimal grade 1 retrolisthesis of L5 over S1. Reviewed, dictated and finalized at [facility]. Impression: Moderate degenerative spondylosis at L5-S1. Mild degenerative change in the remainder of the lumbar spine, as detailed abov e. Minimal grade 1 retrolisthesis of L5 over S1.
--- NOTE | ~2023-03-11 | XR_ITS ---
Clinical Indication: Weakness, edema AP and lateral views of the chest: Comparison: 11/06/2021 Findings: The lungs are clear, without evidence of focal consolidation or pleural effusion. Cardiome diastinal silhouette is within normal limits. Bones and soft tissues are unremarkable. Impression: Normal chest. Reviewed, dictated and finalized at [facility]. Impression: Normal chest.
--- NOTE | ~2023-03-11 | CT_ITS ---
Non-contrast CT scan of the Abdomen and Pelvis Clinical indication: Weakness Technique: 2.5 mm axial scans were obtained through the abdomen and pelvis without intravenous or or al contrast. Dose reduction technique was used on this scan by utilizing automated exposure control a nd iterative reconstruction technique. The dose-length product (DLP) was 1682.75 mGy-cm. COMPARISON: 11/06/2021 Findings: Images through the lung bases reveal no abnormalities. Small bilateral nonobstructing renal stones are present, measuring up to approximately 2 mm in maximu m diameter. No ureteral stone or hydronephrosis on either side. The liver, spleen, pancreas, and adrenals appear normal. Tiny gallstones are present. There is no aor tic aneurysm. There is no evidence of bowel obstruction. Fat-containing umbilical hernia noted. Images through the pelvis were performed. There is no evidence of ascites or lymphadenopathy. Urinary bladder unremarkable. Prostate gland and seminal vesicles are unremarkable. Impression: Fat-containing umbilical hernia. Small bilateral nonobstructing renal stones, as detailed above. Cholelithiasis. Reviewed, dictated and finalized at location M. Impression: Fat-containing umbilical hernia. Small bilateral nonobstructing renal stones, as detailed above. Cholelithiasis.
--- NOTE | ~2023-03-11 | US_ITS ---
EXAMINATION: US venous doppler [facility] DATE: 03/12/2023 11:54 INDICATION: Lower limb pain, swelling and erythema TECHNIQUE: Grayscale ultrasound images without and with compression and Doppler ultrasound images of the bilateral lower extremity veins were obtained. COMPARISON: None. FINDINGS: The visualized portions of right common femoral vein, profunda (deep) femoral vein, femoral vein, pop liteal vein, posterior tibial veins, peroneal veins, gastrocnemius vein and greater saphenous vein ou tflow are patent. The visualized portions of left common femoral vein, profunda femoral vein, femoral vein, popliteal v ein, posterior tibial veins, peroneal veins, gastrocnemius vein and greater saphenous vein outflow ar e patent. IMPRESSION: 1. No deep venous thrombosis in either lower limb. Reviewed, dictated and finalized at location A.
[2023-03-11 18:49] VITALS: BP 172/98; PULSE 113; RESP 20; TEMP 37; O2SAT 96
[2023-03-11 21:54] LABS: Appearance Urine Clear (Clear); Bacteria Urine 4+ /hpf; Bilirubin Urine Negative (Negative); Blood Urine Negative (Negative); Color Urine Yellow (Yellow); Glucose Urine UA Negative (Negative); Ketones Urine Negative (Negative); Leukocyte Esterase Ur 2+ LEU/UL (Negative); Nitrate Urine Positive (Negative); Non Pathogenic Casts 0-2; Protein Urine Negative (Negative); RBC Urine 0-2 /hpf (0-2); Specific Grav Ur 1.007 (1.001-1.035); Squamous Epithelial Cell Urine None seen /hpf (Few); WBC Urine 21-50 /hpf; pH Urine 6.5 (5.0-9.0)
--- NOTE | 2023-03-11 21:57 | ECG_ITS ---
Measurements Intervals [place] Rate: 108 P: 12 [place]: 136 QRS: -20 QRSD: 89 T: 24 QT: 333 QTc: 446 Interpretive Statements SINUS TACHYCARDIA WITH FREQUENT VENTRICULAR PREMATURE COMPLEXES IN A TRIGEMINAL PATTERN ABNORMAL RHYTHM ECG COMPARED TO ECG 03/16/2022 16:43:43 SINUS TACHYCARDIA NOW PRESENT VENTRICULAR TRIGEMINY NOW PRESENT Electronically Signed On 03-12-2023 12:17:35 CDT by Chela Izaguirre M.D.
[2023-03-11 22:00] LABS: Add Urine Microscopic? YES
[2023-03-11 22:19] LABS: Basophils Absolute Auto 0.1 K/mm3 (0.0-0.1); Basophils Percent Auto 0.4 % (0.2-1.2); Eosinophils Absolute Auto 0.1 K/mm3 (0-0.3); Eosinophils Percent Auto 1.1 % (0-4.4); Hematocrit 47.9 % (42.0-52.0); Hemoglobin 15.5 g/dL (14.0-18.0); Immature Granulocyte Absolute 0.04 K/mm3 (0.00-0.031); Immature Granulocyte Percent A 0.3 % (0-0.5); Lymphocytes Absolute Auto 2.53 K/mm3 (0.9-3.2); Lymphocytes Percent Auto 20.7 % (18.3-44.2); Mean Corpuscular HGB Conc 32.4 g/dl (32-36); Mean Corpuscular Hemoglobin 28.4 pg (26-34); Mean Corpuscular Volume 87.9 fl (80-100); Mean Platelet Volume 10.6 fl (7.4-10.4); Monocytes Absolute Auto 0.8 K/mm3 (0.1-0.6); Monocytes Percent Auto 6.3 % (2.6-8.5); Neutrophils Absolute Auto 8.7 K/mm3 (1.3-6.7); Neutrophils Percent Auto 71.2 % (45.5-73.1); Platelet Count Result 285 k/mm3 (150-375); Red Blood Count 5.45 M/mm3 (4.6-6.20); Red Cell Distribution Width 13.3 % (11.5-14.5); White Blood Count 12.2 K/mm3 (4.5-10.0)
[2023-03-11 22:29] LABS: Alanine Aminotransferase 27 U/L (6-50); Albumin Level 4.7 g/dL (3.5-5.1); Alkaline Phosphatase 111 U/L (38-126); Anion Gap 10 mmol/L (8-16); Aspartate Amino Transferase 42 U/L (17-59); Bilirubin,Total 0.9 mg/dL (0.2-1.3); Blood Urea Nitrogen 11 mg/dL (9-20); Calcium 9.4 mg/dL (8.4-10.2); Carbon Dioxide 25 mmol/L (22-30); Chloride 106 mmol/L (98-107); Estimated CRCL calculation 98 ml/min; Estimated Glomerular Filt Rate > 60; Glucose 120 mg/dL (65-110); Sodium 141 mmol/L (137-145)
[2023-03-12] VITALS (9 sets, daily range): BP systolic 113–184; BP diastolic 72–106; PULSE 79–109; RESP 15–26; TEMP 36.6–37.1; O2SAT 96–97; BMI 39.4
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
[2023-03-12 02:11] LABS: Lactic Acid Reflex 1.2 mmol/L (0.7-2.0)
[2023-03-12 02:14] LABS: CRP 0.6 mg/dL (<1.0)
[2023-03-12 02:21] LABS: NT Pro B Type Natriuretic Pept 205 pg/mL (19.9-100)
[2023-03-12 02:31] LABS: D Dimer 0.71 ug/mL (<0.48)
[2023-03-12 02:55] LABS: Erythrocyte Sedimentation Rate 14 mm/hr (0-20)
[2023-03-12] MEDS: FUROSEMIDE INJ 40 MG/4 ML VIAL IV PUSH (06:02)
--- NOTE | 2023-03-12 07:48 | ADMGEN ---
This patient, Tashi Esposito, was admitted to [facility] Surg Room 314-01. Patient/family oriented to hospital policies and general routines including ID bracelet, bed and alarms, visiting hours, pain management, procedures, bathroom and other care routines, personal items, smoking policy, room service/diet, and visiting hours. Information on how to activate the Rapid Response Team has been discussed. Patient/Family are encouraged to report perceived risks to care and to ask questions if they do not understand what they are told or what they should do.
--- NOTE | 2023-03-12 08:32 | PC.NURSE ---
patient states that medications might have gone home with sister Leah. Message left on voicemail for Leah. Waiting for call back
--- NOTE | 2023-03-12 08:48 | PC.NURSE ---
ED notified about patient home medications. They state that they do not have them in the ED.
[2023-03-12] MEDS: ACETAMINOPHEN 325 MG TABLET 650 MG PO (08:54)
--- NOTE | 2023-03-12 09:08 | PC.NURSE ---
sister Leah returned call. She has patient medications at home with her.
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
[2023-03-13 06:00] VITALS: BP 130/74; PULSE 71; RESP 18; TEMP 36.2; O2SAT 95
[2023-03-13] MEDS: ROSUVASTATIN 10 MG TABLET 40 MG PO (09:39)
[2023-03-13 09:40] VITALS: PULSE 80
[2023-03-13] MEDS: PANTOPRAZOLE 40 MG TABLET PO (09:40)
[2023-03-13] MEDS: ASPIRIN 81 MG CHEWABLE TABLET PO (09:40)
[2023-03-13] MEDS: METOPROLOL SUCCINATE EXT REL 25 MG TABCR PO (09:40)
[2023-03-13] MEDS: ENOXAPARIN 40 MG/0.4 ML SYRINGE SUB-Q (09:41)
[2023-03-13] MEDS: ISOSORBIDE MONONITRATE 15 MG TAB.ER.24H PO (09:47)
[2023-03-13] MEDS: ACETAMINOPHEN 325 MG TABLET 650 MG PO ×2 (09:47→17:43)
[2023-03-13] MEDS: polyethylene glycoL 3350 17 GM POWD.PACK PO (10:27)
--- NOTE | 2023-03-13 11:24 | PM.IMPN ---
Progress Note: A&P Assessment and Plan (1) Acute urinary tract infection: Code(s): N39.0 - Urinary tract infection, site not specified Status: Acute Assessment and Plan: Suspected uti Wcc is high Pt started on iv rocephin follow UC (2) Generalized muscle weakness: Code(s): M62.81 - Muscle weakness (generalized) Status: Acute Assessment and Plan: PT/ OT obtain notes from [facility] neurologist obtain tests run there consult neurology here order gabapentin for possible neuropathy in legs (3) Neuropathy of lower extremity: Code(s): G57.90 - Unspecified mononeuropathy of unspecified lower limb Status: Acute Assessment and Plan: Chronic gait disorder Pt had mri l/s showing Moderate degenerative spondylosis at L5-S1. Mild degenerative change in the remainder of the lumbar spine, as detailed above. Minimal grade 1 retrolisthesis of L5 over S1. Can start PT/ OT here Awaiting to see neurology (4) IFG (impaired fasting glucose): Code(s): R73.01 - Impaired fasting glucose Status: Acute Assessment and Plan: order hbaic glucose running high here (5) CAD (coronary artery disease): Qualifiers: Coronary Disease-Associated Artery/Lesion type: robinson artery [place] vs. transplanted heart: robinson heart Associated angina: unspecified whether angina present Qualified Code(s): I25.10 - Atherosclerotic heart disease of robinson coronary artery without angina pectoris Code(s): I25.10 - Atherosclerotic heart disease of robinson coronary artery without angina pectoris Status: Acute Assessment and Plan: continue home medications Plan PLan PT/OT neurology consult obtain old notes social service liaison to look into socal situation Subjective Date/time seen: 03/13/23 11:24 Interval history: Pt admitted with bilateral leg weakness this is a chronic problem for him has been investigated in [facility] before and was here for pcp visit recently Pt states he feels more weak with his legs Pt had MRI l/s today ok to start PT awaiting neurology consult and old notes from [facility] Review of Systems Review of Systems: Leg weakness acute on chronic weakness no speech or swallow problems Exam Const: General: cooperative, healthy appearing and overweight; No in distress Nutritional Appearance: overweight Orientation/consciousness: oriented to person HENMT: Head: normal to inspection Resp: Effort & Inspection: no respiratory distress Auscultation: no rhonchi and no wheezes Cardio: Rate: regular rate Rhythm: regular rhythm GI: Inspection: normal to inspection Auscultation: normal bowel sounds Neuro: General: oriented to person Extrem: Other: Bilateral weakness 4/5 in legs Objective Data Vital Signs Vital Signs: Vital Signs - 24 hr 03/12/23 16:49 03/12/23 20:00 03/12/23 21:32 Temperature 37.1 C 37.1 C Pulse Rate 92 92 79 Respiratory Rate 26 H 26 H 18 Blood Pressure 113/80 117/79 Pulse Oximetry 96 96 96 Oxygen Delivery Room Air 03/13/23 06:00 03/13/23 09:40 03/13/23 10:54 Temperature 36.2 C L Pulse Rate 71 80 Respiratory Rate 18 Blood Pressure 130/74 Pulse Oximetry 95 Oxygen Delivery Room Air Intake/Output Intake/Output: Intake & Output 03/10/23 03/11/23 03/12/23 03/13/23 23:59 23:59 23:59 23:59 Intake Total 1260 560 Output Total 1350 400 Balance -90 160 Meds/Results Medications: Active Medications Generic Name Dose Route Start Last Admin Trade Name Freq PRN Reason Stop Dose Admin Acetaminophen 650 mg 03/12/23 08:40 03/13/23 09:47 Acetaminophen 325 Mg Tablet PO 650 mg TID PRN Administration Pain Aspirin 81 mg 03/13/23 09:00 03/13/23 09:40 Aspirin 81 Mg Chewable Tablet PO 81 mg DAILY PIETER Administration Enoxaparin Sodium 40 mg 03/13/23 09:00 03/13/23 09:41 Enoxaparin 40 Mg/0.4 Ml Syringe SUB-Q
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
[2023-03-13 14:00] VITALS: BP 115/79; PULSE 77; RESP 18; TEMP 36.3; O2SAT 96
--- NOTE | 2023-03-13 19:37 | PC.NURSE ---
Marilee Lao LPN provided care for this patient on 03/13/23. I have reviewed her assessments and agree with her charting.
[2023-03-13 21:14] VITALS: BP 111/91; PULSE 55; RESP 16; TEMP 36.6; O2SAT 96
[2023-03-14 05:15] VITALS: BP 128/75; PULSE 54; RESP 18; TEMP 36.4; O2SAT 98
[2023-03-14 06:27] LABS: Hematocrit 43.4 % (42.0-52.0); Hemoglobin 13.7 g/dL (14.0-18.0); Mean Corpuscular HGB Conc 31.6 g/dl (32-36); Mean Corpuscular Hemoglobin 28.4 pg (26-34); Mean Platelet Volume 10.8 fl (7.4-10.4); Platelet Count Result 233 k/mm3 (150-375); Red Blood Count 4.82 M/mm3 (4.6-6.20); Red Cell Distribution Width 13.2 % (11.5-14.5); White Blood Count 8.5 K/mm3 (4.5-10.0)
[2023-03-14 06:44] LABS: Anion Gap 4 mmol/L (8-16); Blood Urea Nitrogen 18 mg/dL (9-20); Calcium 8.5 mg/dL (8.4-10.2); Carbon Dioxide 32 mmol/L (22-30); Chloride 103 mmol/L (98-107); Estimated CRCL calculation 86 ml/min; Estimated Glomerular Filt Rate > 60; Glucose 116 mg/dL (65-110); Potassium 3.8 mmol/L (3.4-5.0); Sodium 139 mmol/L (137-145)
[2023-03-14] MEDS: ROSUVASTATIN 10 MG TABLET 40 MG PO (09:17)
[2023-03-14] MEDS: METOPROLOL SUCCINATE EXT REL 25 MG TABCR PO (09:17)
[2023-03-14] MEDS: ENOXAPARIN 40 MG/0.4 ML SYRINGE SUB-Q (09:17)
[2023-03-14] MEDS: ASPIRIN 81 MG CHEWABLE TABLET PO (09:17)
[2023-03-14] MEDS: ISOSORBIDE MONONITRATE 15 MG TAB.ER.24H PO (09:18)
[2023-03-14] MEDS: PANTOPRAZOLE 40 MG TABLET PO (09:18)
--- NOTE | 2023-03-14 10:59 | WPDNEUROPN ---
Progress Note: A&P Assessment and Plan (1) Neurologic gait dysfunction: Code(s): R26.9 - Unspecified abnormalities of gait and mobility Status: Acute (2) Weakness: Code(s): R53.1 - Weakness Status: Acute (3) Acute urinary tract infection: Code(s): N39.0 - Urinary tract infection, site not specified Status: Acute (4) White matter disease: Code(s): R90.82 - White matter disease, unspecified Status: Acute Plan Mr. Esposito is a 58 year old male with a history of CAD, GERD, HLD, and white matter disease presenting due to acute on chronic worsening of lower extremity weakness. He was found to have a UTI. Since being treated for this, he has had some improvement in his weakness, and feels back to what is his baseline. Patient reports that he is currently being worked up for leukodystrophy at [facility]. Given that he is back to his baseline, I do not think any additional work-up is needed while admitted, and patient should follow-up closely with his established Neurologists. Subjective Date/time seen: 03/14/23 10:59 Interval history: Mr. Esposito is a 58 year old male with a history of CAD, GERD, HLD, white matter disease presenting for evaluation of worsening lower extremity weakness. Patient first started having lower extremity weakness about three years ago. This has progressed to the point that he is barely able to walk. He has had multiple MRI's done that showed extensive white matter lesions. He has also had several lumbar punctures. Patient does not carry the diagnosis of MS. He sees Dr. Clement and a Neurologist at [facility]. 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 He is also seeing someone with genetics at [facility]. He feels that since he has been admitted his lower extremity strength has improved. He was found to have a UTI during the admission for which he is being treated. Patient denies any new focal neurological symptoms. No change in vision, swallow, speech. He has urinary incontinence at baseline. There is no family history of white matter disease in the family that he is aware of. He has follow-up appt with his Neurologist at [facility] in July. Review of Systems Constitutional: Constitutional: Denies chills, Denies fever(s) and Denies weight loss Eyes: Eyes: Denies diplopia and Denies loss of vision ENT: Denies dizziness, Denies hearing loss and Denies tinnitus Cardiovascular: Cardiovascular: Denies chest pain, Denies syncope and Denies dyspnea Respiratory: Respiratory: Denies cough, Denies dyspnea and Denies wheezing Gastrointestinal: Gastrointestinal: Denies abdominal pain, Denies change in bowel habits, Reports constipation and Denies vomiting Genitourinary: Genitourinary: Reports urinary incontinence Musculoskeletal: Musculoskeletal: Reports back pain, Denies arthralgias and Denies joint swelling Integumentary/Breasts: Skin/Breast: Denies new lesions and Denies rash Neurologic: Reports as per HPI, Denies dizziness, Denies syncope and Denies loss of vision Psychiatric: Psychiatric: Denies anxiety and Denies depression Hematologic/Lymphatic: Hematologic/Lymphatic: Denies easy bleeding and Denies easy bruising Allergic/Immunologic: Allergic/Immunologic: Denies no additional allergic/immunologic complaints and Denies wheezing Exam Const: General: comfortable and no acute distress HENMT: Mouth: Yes moist mucous membranes Eyes: Pupils: Equal, round and reactive pupils present EOM: EOMs intact bilaterally Resp: Effort & Inspection: normal respiratory effort Skin: General skin exam: normal color Neuro: Other: Pupils equal and reactive bilaterally, EOMI, face symmetric, facial sensation intact, tongue protrudes midline, palate midline. Shoulder shrug normal. Strength 5/5 throughout. Culver sign positive, hyperreflexive throughout, few beats of clonus at R ankle. FNF is intact. Language comprehension and fluency intact. Gait deferred. Ex
[2023-03-14 13:55] VITALS: BP 113/80; PULSE 67; RESP 20; TEMP 35.9; O2SAT 98
[2023-03-14] MEDS: SULFAMETHOXAZOLE/TRIMETHOPRIM 800/160 MG DS TABLET 1 TAB PO ×2 (15:06→21:52)
--- NOTE | 2023-03-14 18:50 | PM.IMPN ---
Progress Note: A&P Assessment and Plan (1) Acute urinary tract infection: Code(s): N39.0 - Urinary tract infection, site not specified Status: Acute Assessment and Plan: Suspected uti Wcc is high Pt started on iv rocephin Urine culture with Citrobacter koseri Start Bactrim (2) Generalized muscle weakness: Code(s): M62.81 - Muscle weakness (generalized) Status: Acute Assessment and Plan: PT/ OT obtain notes from [facility] neurologist obtain tests run there consult neurology here order gabapentin for possible neuropathy in legs Follow-up with neurology as an outpatient basis as previously (3) Neuropathy of lower extremity: Code(s): G57.90 - Unspecified mononeuropathy of unspecified lower limb Status: Acute Assessment and Plan: Chronic gait disorder Pt had mri l/s showing Moderate degenerative spondylosis at L5-S1. Mild degenerative change in the remainder of the lumbar spine, as detailed above. Minimal grade 1 retrolisthesis of L5 over S1. Can start PT/ OT here Neuro consult reviewed (4) IFG (impaired fasting glucose): Code(s): R73.01 - Impaired fasting glucose Status: Acute Assessment and Plan: order hbaic glucose running high here (5) CAD (coronary artery disease): Qualifiers: Coronary Disease-Associated Artery/Lesion type: [place] artery [place] vs. transplanted heart: [place] heart Associated angina: unspecified whether angina present Qualified Code(s): I25.10 - Atherosclerotic heart disease of [place] coronary artery without angina pectoris Code(s): I25.10 - Atherosclerotic heart disease of [place] coronary artery without angina pectoris Status: Acute Assessment and Plan: continue home medications Plan PLan PT/OT neurology consult obtain old notes social worker masters to look into socal situation Subjective Date/time seen: 03/14/23 18:50 Interval history: Pt admitted with bilateral leg weakness this is a chronic problem for him has been investigated in [facility] before and was here for pcp visit recently Pt states he feels more weak with his legs No other complaints Urine culture with Citrobacter koseri Review of Systems Review of Systems: All systems reviewed & are unremarkable except as noted in HPI and below Exam Narrative: GENERAL: Well-appearing, well-nourished, and in no acute distress. HEAD: Normocephalic, atraumatic. EYES: PERRLA and EOMI. ENT: Nares clear, no rhinorrhea or epistaxis. Mucous membranes moist. Oropharynx without tonsillar hypertrophy exudate or other lesions. Bilateral TMs pearly brandon non-bulging NECK: Supple. No adenopathy or masses. CHEST: Clear to auscultation. No respiratory distress. No wheezes rales or rhonchi HEART: Regular rate and rhythm. No murmur heard. Normal peripheral pulses. ABDOMEN: Soft, nontender, nondistended, normal active bowel sounds. EXTREMITIES: Normal range of motion. 1+ pitting edema to the bilateral lower extremities with overlying redness. Normal DP pulses SKIN: Warm, dry, no rash. NEURO: No focal deficits. Alert and oriented x3. PSYCH: Normal mood and affect Objective Data Vital Signs Vital Signs: Vital Signs - 24 hr 03/13/23 21:14 03/13/23 20:00 03/14/23 05:15 Temperature 97.8 F 97.6 F Pulse Rate 55 L 54 L Respiratory Rate 16 18 Blood Pressure 111/91 H 128/75 Pulse Oximetry 96 98 Oxygen Delivery Room Air 03/14/23 13:55 Temperature 96.6 F L Pulse Rate 67 Respiratory Rate 20 Blood Pressure 113/80 Pulse Oximetry 98 Oxygen Delivery Intake/Output Intake/Output: Intake & Output 03/11/23 03/12/23 03/13/23 03/14/23 23:59 23:59 23:59 23:59 Intake Total 1260 1960 1662 Output Total 1350 800 675 Balance -90 1160 987 Meds/Results Medications: Active Medications Generic Name Dose Route Start Last Admin Trade Name Freq PRN Reason Stop Dose Admin Acetaminophen 650 mg 03/12/23 08:40
[2023-03-14 20:30] VITALS: PULSE 67; RESP 20; O2SAT 98
[2023-03-14 22:00] VITALS: BP 127/86; PULSE 60; RESP 16; TEMP 35.8; O2SAT 98
[2023-03-15 06:00] VITALS: BP 122/81; PULSE 58; RESP 18; TEMP 35.8; O2SAT 96
[2023-03-15 06:48] LABS: Basophils Absolute Auto 0.1 K/mm3 (0.0-0.1); Basophils Percent Auto 0.8 % (0.2-1.2); Eosinophils Absolute Auto 0.4 K/mm3 (0-0.3); Eosinophils Percent Auto 5.5 % (0-4.4); Hematocrit 42.3 % (42.0-52.0); Hemoglobin 13.7 g/dL (14.0-18.0); Immature Granulocyte Absolute 0.03 K/mm3 (0.00-0.031); Immature Granulocyte Percent A 0.4 % (0-0.5); Lymphocytes Percent Auto 33.8 % (18.3-44.2); Mean Corpuscular HGB Conc 32.4 g/dl (32-36); Mean Corpuscular Hemoglobin 28.6 pg (26-34); Mean Corpuscular Volume 88.3 fl (80-100); Mean Platelet Volume 10.7 fl (7.4-10.4); Monocytes Absolute Auto 0.7 K/mm3 (0.1-0.6); Monocytes Percent Auto 8.1 % (2.6-8.5); Neutrophils Absolute Auto 4.1 K/mm3 (1.3-6.7); Neutrophils Percent Auto 51.4 % (45.5-73.1); Platelet Count Result 230 k/mm3 (150-375); Red Blood Count 4.79 M/mm3 (4.6-6.20); Red Cell Distribution Width 12.9 % (11.5-14.5)
[2023-03-15 06:52] LABS: Alanine Aminotransferase 18 U/L (6-50); Albumin Level 3.7 g/dL (3.5-5.1); Alkaline Phosphatase 74 U/L (38-126); Anion Gap 3 mmol/L (8-16); Aspartate Amino Transferase 23 U/L (17-59); Bilirubin,Total 0.7 mg/dL (0.2-1.3); Blood Urea Nitrogen 16 mg/dL (9-20); Calcium 8.3 mg/dL (8.4-10.2); Carbon Dioxide 28 mmol/L (22-30); Chloride 106 mmol/L (98-107); Estimated CRCL calculation 73 ml/min; Estimated Glomerular Filt Rate 57; Glucose 108 mg/dL (65-110); Magnesium 2.1 mg/dL (1.6-2.3); Sodium 137 mmol/L (137-145)
[2023-03-15] MEDS: ASPIRIN 81 MG CHEWABLE TABLET PO (08:24)
[2023-03-15 08:25] VITALS: PULSE 64
[2023-03-15] MEDS: SULFAMETHOXAZOLE/TRIMETHOPRIM 800/160 MG DS TABLET 1 TAB PO (08:25)
[2023-03-15] MEDS: ROSUVASTATIN 10 MG TABLET 40 MG PO (08:25)
[2023-03-15] MEDS: METOPROLOL SUCCINATE EXT REL 25 MG TABCR PO (08:25)
[2023-03-15] MEDS: ISOSORBIDE MONONITRATE 15 MG TAB.ER.24H PO (08:26)
[2023-03-15] MEDS: ACETAMINOPHEN 325 MG TABLET 650 MG PO (08:27)
[2023-03-15] MEDS: PANTOPRAZOLE 40 MG TABLET PO (08:27)
[2023-03-15] MEDS: polyethylene glycoL 3350 17 GM POWD.PACK PO (08:28)
[2023-03-15] MEDS: ENOXAPARIN 40 MG/0.4 ML SYRINGE SUB-Q (08:31)
--- NOTE | 2023-03-15 13:07 | PM.DS ---
DS: Admitting Diagnosis Discharge Date 03/15/2023 Admitting Diagnosis Generalized weakness DS: Discharge Diagnosis Discharge Diagnosis (1) Acute urinary tract infection: Code(s): N39.0 - Urinary tract infection, site not specified Status: Acute (2) Generalized muscle weakness: Code(s): M62.81 - Muscle weakness (generalized) Status: Acute (3) Neuropathy of lower extremity: Code(s): G57.90 - Unspecified mononeuropathy of unspecified lower limb Status: Acute (4) IFG (impaired fasting glucose): Code(s): R73.01 - Impaired fasting glucose Status: Acute (5) CAD (coronary artery disease): Qualifiers: Coronary Disease-Associated Artery/Lesion type: [place] artery [place] vs. transplanted heart: [place] heart Associated angina: unspecified whether angina present Qualified Code(s): I25.10 - Atherosclerotic heart disease of [place] coronary artery without angina pectoris Code(s): I25.10 - Atherosclerotic heart disease of [place] coronary artery without angina pectoris Status: Acute DS: Summary Hospital Course Hospital Course: 50-year-old male presents to the ER for generalized weakness. Reported couple falls due to weakness and gait instability. He has chronic lower extremity weakness for which he has been working up with neurologist in [place] for formal diagnosis. He was found to have UTI. History was ceftriaxone which was switched to Bactrim at discharge. PT OT evaluated. His weakness improved and back to his baseline but still was unsteady to be safer on discharge to home. PT OT continued to evaluate him in the hospital care coordination was consulted for rehab placement and is going for rehab of at [place] Time Spent with Patient Time attestation: Total time spent providing and/or coordinating discharge services: 35 minutes Exam Narrative: GENERAL: Well-appearing, well-nourished, and in no acute distress. HEAD: Normocephalic, atraumatic. EYES: PERRLA and EOMI. ENT: Nares clear, no rhinorrhea or epistaxis. Mucous membranes moist. NECK: Supple. No adenopathy or masses. CHEST: Clear to auscultation. No respiratory distress. No wheezes rales or rhonchi HEART: Regular rate and rhythm. No murmur heard. Normal peripheral pulses. ABDOMEN: Soft, nontender, nondistended, normal active bowel sounds. EXTREMITIES: Normal range of motion. 1+ pitting edema to the bilateral lower extremities with overlying redness. Normal DP pulses SKIN: Warm, dry, no rash. NEURO: No focal deficits. Alert and oriented x3. PSYCH: Normal mood and affect DS: Data Data Completed and Pending Labs on day of discharge: Labs from last 24 hours 03/15/23 06:04 WBC 8.0 RBC 4.79 Hgb 13.7 L Hct 42.3 MCV 88.3 MCH 28.6 MCHC 32.4 RDW 12.9 Plt Count 230 MPV 10.7 H Immature Gran % (Auto) 0.4 Neut % (Auto) 51.4 Lymph % (Auto) 33.8 [place] % (Auto) 8.1 Eos % (Auto) 5.5 H Baso % (Auto) 0.8 Lymph # (Auto) 2.70 [place] # (Auto) 0.7 H Eos # (Auto) 0.4 H Baso # (Auto) 0.1 Abs Immat Gran (auto) 0.03 Absolute Neuts (auto) 4.1 Absolute Nucleated RBC 0.0 Nucleated RBC % 0.0 Sodium 137 Potassium 4.0 Chloride 106 Carbon Dioxide 28 Anion Gap 3 L BUN 16 Creatinine 1.30 Estim Creat Clear Calc 73 Estimated GFR 57 L Glucose 108 Calcium 8.3 L Magnesium 2.1 Total Bilirubin 0.7 AST 23 ALT 18 Alkaline Phosphatase 74 Total Protein 6.0 L Albumin 3.7 Imaging Radiologist's impression: ITS Impressions Abdomen/Pelvis CT 03/12/23 05:48 Impression: Fat-containing umbilical hernia. Small bilateral nonobstructing renal stones, as detailed above. Cholelithiasis. Chest X-Ray 03/12/23 06:33 Impression: Normal chest. Venous Doppler Study 03/12/23 11:55 IMPRESSION: 1. No deep venous thrombosis in either lower limb. Lumbar Spine MRI 03/13/23 08:27 Impression: Moderate degenerative spondylosis at L5-S1.
[2023-03-15 14:00] VITALS: BP 124/74; PULSE 69; RESP 18; TEMP 36; O2SAT 97
--- NOTE | 2023-03-15 14:33 | PC.NURSE ---
This RN called and gave report to the receiving facility ([facility]). Bonnie SHORT took report and agreed to care for the patient.
--- NOTE | 2023-03-15 15:45 | PC.NURSE ---
This RN witnessed the dry pan charger return the pt's personal belongings that were locked up in the safe.
== END 2023-03-15 16:15 ==
LOC: ANHED 03-12 06:14 → ANH3MEDSUR 03-12 08:44
PROVIDERS: Physician Assistant; Admitting Provider Family Medicine; Emergency Provider Emergency Medicine; PCP Family Medicine; Visit Provider Internal Medicine
DX: N39.0 Urinary tract infection, site not specified (principal); B96.89 Other specified bacterial agents as the cause of diseases classified elsewhere; M62.81 Muscle weakness (generalized); G57.90 Unspecified mononeuropathy of unspecified lower limb; R73.01 Impaired fasting glucose; I25.10 Atherosclerotic heart disease of native coronary artery without angina pectoris; M47.817 Spondylosis without myelopathy or radiculopathy, lumbosacral region; M43.17 Spondylolisthesis, lumbosacral region; R79.1 Abnormal coagulation profile; I87.2 Venous insufficiency (chronic) (peripheral); R29.6 Repeated falls; G35 Multiple sclerosis; Z99.89 Dependence on other enabling machines and devices; R60.0 Localized edema; L53.9 Erythematous condition, unspecified; M79.605 Pain in left leg; M79.604 Pain in right leg; E78.00 Pure hypercholesterolemia, unspecified; R35.0 Frequency of micturition; K59.00 Constipation, unspecified; N20.0 Calculus of kidney; K80.20 Calculus of gallbladder without cholecystitis without obstruction; K22.10 Ulcer of esophagus without bleeding; R94.31 Abnormal electrocardiogram [ECG] [EKG]; D72.829 Elevated white blood cell count, unspecified; K21.9 Gastro-esophageal reflux disease without esophagitis; K42.9 Umbilical hernia without obstruction or gangrene; J30.2 Other seasonal allergic rhinitis; F10.10 Alcohol abuse, uncomplicated; Z79.82 Long term (current) use of aspirin; Z79.899 Other long term (current) drug therapy
CPT/HCPCS: 36415; 71046; 72148; 74176; 80048; 80053; 81001; 83605; 83735; 83880; 85025; 85027; 85380; 85652; 86140; 87077; 87086; 87186; 93005; 93970; 96365; 96372; 96375; 97110; 97116; 97161; 97166; 97530; 97535; 99285; A9270; G0378; J0696; J1650; J1940

== ENCOUNTER 2024-03-12 10:29 | Inpatient (IN) | payer MEDICARE, SELFPAY ==
[2024-03-12] VITALS (44 sets, daily range): BP systolic 109–153; BP diastolic 71–100; PULSE 73–137; RESP 16–40; TEMP 36.4–39.4; O2SAT 91–100; BMI 40.4
--- NOTE | ~2024-03-12 | XR_ITS ---
EXAMINATION: XR chest 1V portable DATE: 03/13/2024 17:41 INDICATION: Sepsis. TECHNIQUE: A single frontal view of the chest was obtained on 2 radiographs. COMPARISON: Chest 2 views 03/12/2023, chest CT 03/12/2024 FINDINGS: There is no pneumonia, pleural effusion, or pneumothorax. The heart size is normal. There i s an old healed fracture of right clavicle. There are old healed right rib fractures. IMPRESSION: 1. No acute cardiopulmonary disease. Reviewed, dictated and finalized at location A.
--- NOTE | ~2024-03-12 | CT_ITS ---
CT cervical spine wo con Ordering provider: Dane Paz MD History: . AMS . Comparison: None. Technique: CT of the cervical spine was performed without contrast. Sagittal and coronal reformatted images were also obtained and reviewed. Automated exposure control and iterative reconstruction tj hnique were employed. The dose-length product was 517.03 mGy-cm. FINDINGS: VERTEBRAE: Slight loss of height is seen in T7 which may be acute or chronic. Evaluation by MRI is ad vised. Otherwise, No subluxation or acute fracture. The occipital condyles are intact. Sclerotic are a is seen in the left side of C7. DISC SPACES: Normal. PARASPINOUS SOFT TISSUES: Normal. IMPRESSION: No acute osseous abnormality cervical spine. Sclerotic lesion C7. Clinical correlation and Follow-up advised. Reviewed, dictated and finalized at location A.
--- NOTE | ~2024-03-12 | US_ITS ---
EXAM: ABDOMEN ULTRASOUND HISTORY: Abdominal pain COMPARISON: None FINDINGS: LIVER: The liver is increased in echogenicity and unremarkable in size measuring 16 cm in longitudina l dimension. GALLBLADDER: No stones are identified within the gallbladder. BILE DUCTS: Common bile duct measures 6mm. PANCREAS: Limited evaluation of the pancreas secondary to overlying bowel gas RIGHT KIDNEY: Evaluation of the right kidney was limited secondary to overlying bowel gas and poor ac oustic penetration IMPRESSION: Limited evaluation of the right upper quadrant secondary to poor acoustic penetration is without sono graphic abnormality. Reviewed, dictated and finalized at location A. IMPRESSION: Limited evaluation of the right upper quadrant secondary to poor acoustic penet ration is without sonographic abnormality.
--- NOTE | ~2024-03-12 | CT_ITS ---
CT brain wo con Ordering provider: Dane Paz MD History: 59 years Male with . AMS . Comparison: November 06, 2021 Technique: CT of the head without contrast. Radiation reduction technique utilized. The dose-length product was 681 mGy-cm. FINDINGS: BRAIN PARENCHYMA AND CSF SPACES: Mild leukoaraiosis and diffuse cortical atrophy. Mild atheromatous d isease. No midline shift, mass effect or hemorrhage. The brain parenchyma and CSF spaces are otherwi se normal. VISUALIZED PARANASAL SINUSES: Well aerated. MASTOIDS: Well aerated. BONES: The bones appear intact. SOFT TISSUES: Visualized nasopharynx is normal. Superficial soft tissues are normal. IMPRESSION: No acute intracranial findings. Reviewed, dictated and finalized at location A.
--- NOTE | ~2024-03-12 | CT_ITS ---
EXAMINATION: CT chest abdomen pelvis wo con DATE: 03/12/2024 12:09 INDICATION: Altered mental status, found in bathtub. Febrile. TECHNIQUE: Computed tomography (CT) of the chest, abdomen, and pelvis was performed without intraveno us contrast. Automated exposure control and iterative reconstruction technique were employed. The dos e-length product was 1872.99 mGy-cm. COMPARISON: CT abdomen and pelvis dated 03/12/2023 at 1:37 AM FINDINGS: CHEST CT: There is respiratory motion which obscures fine pulmonary parenchymal detail. Mild dependent atelecta sis in bilateral lower lobes. No pneumonia, pulmonary edema, pleural effusion or pneumothorax. Heart size normal. Atherosclerotic coronary artery calcifications. No pericardial effusion. Ectatic ascendi ng thoracic aorta measuring up to 4 cm maximal diameter. No pathologically enlarged thoracic lymphade nopathy. Old healed medial right clavicle fracture deformity. There are also few old healed right rib fractures. ABDOMEN/PELVIS CT: There are few tiny calcified gallstones in dependent aspect of the normal gallbladder. Liver, spleen, pancreas and bilateral adrenal glands are normal. Bilateral nonobstructing nephrolithiasis with 2 mm stones at the lower poles of both the left and right kidneys. Bowels including the appendix are norm al. Small fat-containing umbilical hernia. Peralta catheter within the decompressed bladder. No free in traperitoneal gas or fluid. No pathologically enlarged abdominal or pelvic lymphadenopathy. There are several small sclerotic bone islands in the pelvis and proximal femurs. Moderate lower lumbar spondy losis. No acute osseous abnormality. IMPRESSION: 1. No acute fracture, acute cardiopulmonary disease or acute intra-abdominal/pelvic process. 2. Ectatic ascending thoracic aorta measuring up to 4.0 cm. 3. Cholelithiasis. 4. Bilateral nonobstructing nephrolithiasis. Reviewed, dictated and finalized at location A. IMPRESSION: 1. No acute fracture, acute cardiopulmonary disease or acute intra-abdominal/pe lvic process. 2. Ectatic ascending thoracic aorta measuring up to 4.0 cm. 3. Cholelithiasis. 4. Bilateral nonobstructing nephrolithiasis.
--- NOTE | 2024-03-12 10:40 | ECG_ITS ---
Test Date: 2024-03-12 10:37:05 Measurements Intervals [place] Rate: 136 P: 31 NC: 130 QRS: -32 QRSD: 89 T: 70 QT: 310 QTc: 467 Interpretive Statements SINUS TACHYCARDIA WITH FREQUENT VENTRICULAR PREMATURE COMPLEXES MARKED LEFT AXIS DEVIATION [QRS AXIS < -30] PATTERN CONSISTENT WITH PULMONARY DISEASE NONSPECIFIC ST & T-WAVE ABNORMALITY No previous ECG available for comparison Electronically Signed On 03-12-2024 12:30:13 CDT by Dave Black M.D.
[2024-03-12 10:50] LABS: Glucose Point of Care 190 mg/dl (65-105)
[2024-03-12 11:11] LABS: Base Excess ABG -3.6 mEq/l (+/-2.0); Fractional Inspired Oxygen 21 %; HCO3 ABG 18.9 mEq/l (22.0-26.0); Oxygen Saturation ABG 91.8 % (95.0-100.0); Oxyhemoglobin 91.4 % THb (90.0-100.0); PCO2 ABG 28.5 mmHg (35.0-45.0); PO2 ABG 58.6 mmHg (80.0-100.0); PO2 FiO2 Ratio Arterial Blood 2.79 %; Total Hemoglobin 16.4 g/dL (12.0-18.0)
[2024-03-12 11:13] LABS: Device ROOM AIR; Site Drawn LEFT BRACHIAL
--- NOTE | 2024-03-12 11:14 | PCRCNOTE ---
HAD TO WAIT IN LINE TO DRAW THE ABG; PT. HAD SOMEONE WORKING ON BOTH SIDES ALREADY.
[2024-03-12] MEDS: SODIUM CHLORIDE 0.9% 999 ML IV CONT (11:15)
[2024-03-12] MEDS: ACETAMINOPHEN 650 MG SUPPOSITORY RECTAL (11:17)
[2024-03-12] MEDS: AZITHROMYCIN 500 MG/NS 250 ML 500 MG/250 ML BAG 250 MG IVPB (11:17)
[2024-03-12 11:18] LABS: Basophils Percent Auto 0.3 % (0.2-1.2); Hematocrit 48.2 % (42.0-52.0); Hemoglobin 16.1 g/dL (14.0-18.0); Immature Granulocyte Absolute 0.07 K/mm3 (0.00-0.031); Immature Granulocyte Percent A 0.5 % (0-0.5); Lymphocytes Absolute Auto 1.24 K/mm3 (0.9-3.2); Lymphocytes Percent Auto 9.4 % (18.3-44.2); Mean Corpuscular HGB Conc 33.4 g/dl (32-36); Mean Corpuscular Volume 86.7 fl (80-100); Mean Platelet Volume 11.5 fl (7.4-10.4); Monocytes Absolute Auto 0.5 K/mm3 (0.1-0.6); Neutrophils Absolute Auto 11.3 K/mm3 (1.3-6.7); Neutrophils Percent Auto 85.8 % (45.5-73.1); Platelet Count Result 251 k/mm3 (150-375); Red Blood Count 5.56 M/mm3 (4.6-6.20); Red Cell Distribution Width 13.2 % (11.5-14.5); White Blood Count 13.2 K/mm3 (4.5-10.0)
[2024-03-12] MEDS: PIPERACILLN/TAZ 3.375GM/NS50ML 3.375 GM/50 ML BAG IVPB ×2 (11:19→18:04)
[2024-03-12 11:29] LABS: Acetaminophen < 10 ug/mL (10-30); Ethanol < 10 mg/dL (<10)
[2024-03-12 11:30] LABS: Alanine Aminotransferase 20 U/L (6-50); Albumin Level 4.6 g/dL (3.5-5.1); Alkaline Phosphatase 93 U/L (38-126); Anion Gap 17 mmol/L (4-12); Aspartate Amino Transferase 29 U/L (17-59); Bilirubin,Total 1.7 mg/dL (0.2-1.3); Blood Urea Nitrogen 22 mg/dL (9-20); Calcium 8.8 mg/dL (8.4-10.2); Carbon Dioxide 17 mmol/L (22-30); Chloride 105 mmol/L (98-107); Creatine Kinase 94 U/L (55-170); Estimated CRCL calculation 65 ml/min; Estimated Glomerular Filt Rate 44; Glucose 177 mg/dL (65-110); Lipase 265 U/L (23-300); Magnesium 1.7 mg/dL (1.6-2.3); Phosphorus 2.4 mg/dL (2.5-4.5); Potassium 3.3 mmol/L (3.4-5.0); Sodium 139 mmol/L (137-145)
[2024-03-12 11:35] LABS: INR 1.2; Prothrombin Time 15.7 Seconds (11.1-14.7)
[2024-03-12 11:41] LABS: Add Urine Microscopic? YES; Appearance Urine Cloudy (Clear); Bacteria Urine 1+ /hpf; Bilirubin Urine Negative (Negative); Blood Urine 3+ (Negative); Color Urine Dark Yellow (Yellow); Glucose Urine UA Negative (Negative); Ketones Urine 4+ mg/dL (Negative); Leukocyte Esterase Ur 1+ LEU/UL (Negative); Need Manual Microscopic Reviewed; Nitrate Urine Negative (Negative); Protein Urine 2+ mg/dL (Negative); RBC Urine >100 /hpf (0-2); Squamous Epithelial Cell Urine Few /hpf (Few); pH Urine 5.5 (5.0-9.0)
[2024-03-12 11:47] LABS: NT Pro B Type Natriuretic Pept 600 pg/mL (19.9-100); Troponin I 0.182 ng/mL (0.000-0.034)
[2024-03-12 12:02] LABS: Influenza A QL RT-PCR Negative (Negative); Influenza B QL RT-PCR Negative (Negative); RSV RNA, RT-PCR Negative (Negative); SARS-CoV-2 RNA PCR Negative (Negative)
[2024-03-12] MEDS: VANCOMYCIN 1,250 MG/NS 250 ML 1,250 MG/250 ML BAG 166.67 MG IVPB ×2 (12:10→13:47)
[2024-03-12 12:22] LABS: Amphetamine Screen Urine Negative (Negative); Barbiturate Screen Urine Negative (Negative); Benzodiazepines Screen Urine Negative (Negative); Cannabinoid Screen Urine Negative (Negative); Cocaine Screen Urine Negative (Negative); Methadone Screen Urine Negative (Negative); Opiate Screen Urine Negative (Negative); Phencyclidine Screen Urine Negative (Negative)
[2024-03-12 12:22] LABS: Thyroid Stimulating Hormone Reflex 0.442 uIU/mL (0.465-4.68)
[2024-03-12 13:45] LABS: Free T4 Free Thyroxine Reflex 1.37 ng/dL (0.78-2.19)
--- NOTE | 2024-03-12 13:53 | ECG_ITS ---
Test Date: 2024-03-12 14:05:15 Measurements Intervals [place] Rate: 92 P: 40 [place]: 148 QRS: -2 QRSD: 93 T: 36 QT: 369 QTc: 458 Interpretive Statements SINUS RHYTHM LOW QRS VOLTAGE IN PRECORDIAL LEADS [QRS DEFLECTION < 1.0 mV IN CHEST LEADS] Compared to ECG 03/12/2024 10:37:05 Low QRS voltage now present Sinus tachycardia no longer present Ventricular premature complex(es) no longer present Left-axis deviation no longer present T-wave abnormality no longer present Electronically Signed On 03-12-2024 14:59:01 CDT by Dave Black M.D.
[2024-03-12 14:21] LABS: Troponin I 0.182 ng/mL (0.000-0.034)
[2024-03-12 14:32] LABS: Total Triiodothyronine (T3) 1.03 NG/ML (0.97-1.69)
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
[2024-03-12] MEDS: POTASSIUM CHLORIDE INJ 40 MEQ in SODIUM CHLORIDE 0.9% IV 500 ML 130 MEQ IVPB (15:54)
--- NOTE | 2024-03-12 16:30 | ECG_ITS ---
Test Date: 2024-03-12 16:34:17 Measurements Intervals [place] Rate: 91 P: 38 [place]: 147 QRS: 1 QRSD: 92 T: 29 QT: 361 QTc: 446 Interpretive Statements SINUS RHYTHM LOW QRS VOLTAGE IN PRECORDIAL LEADS [QRS DEFLECTION < 1.0 mV IN CHEST LEADS] Compared to ECG 03/12/2024 14:05:15 No significant changes Electronically Signed On 03-13-2024 10:37:02 CDT by Dave Black M.D.
--- NOTE | 2024-03-12 17:15 | ADMGEN ---
This patient, Tashi Esposito, was admitted to IMU Room 231-01. Patient/family oriented to hospital policies and general routines including ID bracelet, bed and alarms, visiting hours, pain management, procedures, bathroom and other care routines, personal items, smoking policy, room service/diet, and visiting hours. Information on how to activate the Rapid Response Team has been discussed. Patient/Family are encouraged to report perceived risks to care and to ask questions if they do not understand what they are told or what they should do.
--- NOTE | 2024-03-12 17:18 | PC.NURSE ---
patient admitted to IMU with potassium infusing per order
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
[2024-03-13] VITALS (16 sets, daily range): BP systolic 100–150; BP diastolic 49–86; PULSE 63–109; RESP 14–22; TEMP 36.4–37.3; O2SAT 96–99; BMI 30.1
[2024-03-13] MEDS: PIPERACILLN/TAZ 3.375GM/NS50ML 3.375 GM/50 ML BAG IVPB ×4 (00:30→17:16)
[2024-03-13 05:19] LABS: Basophils Absolute Auto 0.1 K/mm3 (0.0-0.1); Basophils Percent Auto 0.4 % (0.2-1.2); Eosinophils Absolute Auto 0.1 K/mm3 (0-0.3); Eosinophils Percent Auto 1.1 % (0-4.4); Hemoglobin 13.5 g/dL (14.0-18.0); Immature Granulocyte Absolute 0.03 K/mm3 (0.00-0.031); Immature Granulocyte Percent A 0.2 % (0-0.5); Lymphocytes Absolute Auto 2.64 K/mm3 (0.9-3.2); Lymphocytes Percent Auto 21.7 % (18.3-44.2); Mean Corpuscular HGB Conc 32.1 g/dl (32-36); Mean Corpuscular Hemoglobin 28.3 pg (26-34); Mean Corpuscular Volume 88.1 fl (80-100); Mean Platelet Volume 11.1 fl (7.4-10.4); Monocytes Absolute Auto 1.2 K/mm3 (0.1-0.6); Monocytes Percent Auto 9.4 % (2.6-8.5); Neutrophils Absolute Auto 8.2 K/mm3 (1.3-6.7); Neutrophils Percent Auto 67.2 % (45.5-73.1); Platelet Count Result 185 k/mm3 (150-375); Red Blood Count 4.77 M/mm3 (4.6-6.20); Red Cell Distribution Width 13.6 % (11.5-14.5); White Blood Count 12.2 K/mm3 (4.5-10.0)
[2024-03-13 05:39] LABS: Alanine Aminotransferase 14 U/L (6-50); Albumin Level 3.4 g/dL (3.5-5.1); Alkaline Phosphatase 68 U/L (38-126); Anion Gap 6 mmol/L (4-12); Aspartate Amino Transferase 21 U/L (17-59); Bilirubin,Total 1.4 mg/dL (0.2-1.3); Blood Urea Nitrogen 19 mg/dL (9-20); Calcium 8.3 mg/dL (8.4-10.2); Carbon Dioxide 22 mmol/L (22-30); Chloride 113 mmol/L (98-107); Estimated CRCL calculation 86 ml/min; Estimated Glomerular Filt Rate > 60; Glucose 126 mg/dL (65-110); Magnesium 2.1 mg/dL (1.6-2.3); Phosphorus 2.2 mg/dL (2.5-4.5); Potassium 3.9 mmol/L (3.4-5.0); Sodium 141 mmol/L (137-145)
[2024-03-13] MEDS: VANCOMYCIN 1,500 MG/NS 500 ML 1,500 MG/500 ML BAG 250 MG IVPB ×2 (06:10→18:00)
[2024-03-13] MEDS: AZITHROMYCIN 500 MG/NS 250 ML 500 MG/250 ML BAG 250 MG IVPB (08:58)
--- NOTE | 2024-03-13 17:22 | PM.IMPN ---
Progress Note: A&P Assessment and Plan (1) Sepsis: Qualifiers: Acute renal failure type: unspecified Sepsis acute organ dysfunction status: with acute organ dysfunction Sepsis type: sepsis due to unspecified organism Severe sepsis acute organ dysfunction type: acute renal failure Severe sepsis shock status: without septic shock Qualified Code(s): A41.9 - Sepsis, unspecified organism; R65.20 - Severe sepsis without septic shock; N17.9 - Acute kidney failure, unspecified Code(s): A41.9 - Sepsis, unspecified organism Status: Acute Assessment and Plan: Likely from UTI Vital normal and within normal limits S/p IVF Imaging on admission no acute changes blood and urine cultures MRSA pending and repeat CXR pending, lactic acid f/u cultures (2) Altered mental status: Qualifiers: Altered mental status type: unspecified Qualified Code(s): R41.82 - Altered mental status, unspecified Code(s): R41.82 - Altered mental status, unspecified Status: Acute Assessment and Plan: - head CT: No acute intracranial findings - TSH mildly low with normal T3/T4 - UDS and ETOH negative - suspect alteration due to severe sepsis, back to baseline (3) Acute UTI: Code(s): N39.0 - Urinary tract infection, site not specified Status: Acute Assessment and Plan: - UA: Cloudy, 2+ protein, 4+ ketones, 3+ blood, 1+ leuks, greater than 100 RBC, 11-28 WBC, 1+ bacteria - UC pending - continue antibiotics (4) Acute hypokalemia: Code(s): E87.6 - Hypokalemia Status: Acute Assessment and Plan: k 3.9 resolved continue monitoring (5) RAJESH (acute kidney injury): Code(s): N17.9 - Acute kidney failure, unspecified Status: Acute Assessment and Plan: Cr 1.1, 1.6 at baseline continue monitoring Plan Diet: Heart healthy DVT Prophylaxis: Sq Lovenox Code Status: Full code Subjective Date/time seen: 03/13/24 17:22 Interval history: Patient comfortable at bedside and alert and oriented x3. Review of Systems Review of Systems: All systems reviewed & are unremarkable except as noted in HPI and below Exam Narrative: General: alert and comfortable Eyes: EOMI, PERRLA ENNT External ears normal, Neck is supple, no masses, Respiratory systems: Clear to auscultation Cardiovascular S1, S2, normal rhythm, no murmur, rub, or gallop; no thrill or palpable murmurs on palpation. Gastrointestinal: soft, non-tender, and non-distended abdomen with no masses; BS present Skin: no rash, lesions, ulcerations, subcutaneous nodules or induration Musculoskeletal: no abnormality and no tenderness, normal ROM Neurologic: Alert and oriented x3, non focal Mental Status Exam: normal affect Objective Data Vital Signs Vital Signs: Vital Signs - 24 hr 03/12/24 18:00 03/12/24 20:37 03/12/24 21:24 Temperature 98.3 F Pulse Rate 81 83 Respiratory Rate 22 H Blood Pressure 139/80 Pulse Oximetry 96 97 Oxygen Delivery Room Air 03/12/24 23:58 03/12/24 20:00 03/12/24 22:00 Temperature 98.3 F Pulse Rate 73 88 80 Respiratory Rate 22 H Blood Pressure 146/74 H Pulse Oximetry 97 Oxygen Delivery 03/13/24 00:00 03/13/24 02:00 03/13/24 04:12 Temperature 97.6 F Pulse Rate 74 63 73 Respiratory Rate 22 H Blood Pressure 135/84 Pulse Oximetry 98 Oxygen Delivery 03/13/24 04:00 03/13/24 06:00 03/13/24 08:00 Temperature 99.1 F Pulse Rate 72 74 76 Respiratory Rate 20 Blood Pressure 136/76 Pulse Oximetry 98 Oxygen Delivery 03/13/24 08:00 03/13/24 09:39 03/13/24 08:00 Temperature 98.7 F Pulse Rate 76 67 75 Respiratory Rate 20 14 Blood Pressure 100/49 L Pulse Oximetry 98 99 Oxygen Delivery Room Air 03/13/24 12:00 03/13/24 10:00 03/13/24 12:00 Temperature 99.0 F Pulse Rate 97 88 83 Respiratory Rate 16 Blood Pressure 122/86 Pul
--- NOTE | 2024-03-13 18:19 | ECG_ITS ---
Test Date: 2024-03-13 18:32:11 Measurements Intervals [place] Rate: 87 P: 37 TX: 137 QRS: -5 QRSD: 89 T: 15 QT: 347 QTc: 419 Interpretive Statements SINUS RHYTHM Compared to ECG 03/12/2024 16:34:17 No significant changes Electronically Signed On 03-14-2024 16:16:43 CDT by Renetta Christensen M.D.
[2024-03-13 18:43] LABS: Lactic Acid Reflex 2.1 mmol/L (0.7-2.0)
[2024-03-13 18:59] LABS: Troponin I 0.086 ng/mL (0.000-0.034)
[2024-03-13 19:21] LABS: MRSA (PCR) NOT DETECTED (NOT DETECTE)
[2024-03-13 21:31] LABS: Reflex Lactic Acid Yes or No Add Lactic
[2024-03-13 22:38] LABS: Lactic Acid 0.8 mmol/L (0.7-2.0)
[2024-03-14] VITALS (14 sets, daily range): BP systolic 132–151; BP diastolic 73–88; PULSE 76–126; RESP 18–20; TEMP 36.3–37.3; O2SAT 96–99
--- NOTE | 2024-03-14 | ECHO_ITS ---
Patient Info Name: Tashi Esposito Age: 59 years : 1965 Gender: Male Ht: 70 in Wt: 290 lbs BSA: 2.61 m2 HR: 76 bpm BP: 132 / 73 mmHg Heart Rhythm: Sinus Rhythm Technical Quality: Good Exam Date: 03/14/2024 8:21 AM Exam Location: Echo Lab Patient Status: Outpatient Admit Date: 03/12/2024 Staff Ordering Physician: Thomas Malave MD Sql Tech: Romy Joseph RDCS Attending Provider: Marcelle Fuentes MD Exam Type: CA echo doppler color flow Study Info Indications - elevated troponin Complete two-dimensional, color flow and Doppler transthoracic echocardiogram is performed. Summary 1. Complete two-dimensional, color flow and Doppler transthoracic echocardiogram is performed. 2. Left ventricular systolic function is normal, estimated at 55-60%. 3. The left ventricular diastolic function is abnormal. 4. There is trace tricuspid valve regurgitation. 5. No pulmonary hypertension, estimated pulmonary arterial systolic pressure is 18 mmHg. Left Ventricle Left ventricular chamber dimension is normal. Left ventricular systolic function is normal, estimated at 55-60%. There is no increased left ventricular wall thickness. Left ventricular septal wall motion is normal. The left ventricular diastolic function is abnormal. Right Ventricle Right ventricular chamber dimension is normal. Right ventricular systolic function is normal. Left Atria Left atrial chamber dimension is normal. Right Atria Right atrial chamber dimension is normal. Atrial Septum Intact interatrial septum visualized by color flow imaging. Aortic Valve The aortic valve is trileaflet. There is no aortic valve sclerosis. There is no aortic valve stenosis. There is no aortic valve regurgitation. Pulmonic Valve The pulmonic valve is normal. There is no pulmonic valve stenosis. There is no pulmonic regurgitation. Mitral Valve The mitral valve has normal leaflets. There is no mitral valve stenosis. There is no mitral valve regurgitation. Tricuspid Valve The tricuspid valve leaflets are normal. There is no significant tricuspid valve stenosis. There is trace tricuspid valve regurgitation. No pulmonary hypertension, estimated pulmonary arterial systolic pressure is 18 mmHg. Pericardium/Pleural The pericardium appears normal. There is no pericardial effusion. Inferior Vena Cava Normal inferior vena cava with >50% collapse upon inspiration consistent with normal right atrial pressure, 10 mmHg. Aorta The aortic root size at the sinus of Valsalva is normal. The prox ascending aorta size is normal. Left Ventricular Outflow Tract Name Value Normal LVOT 2D LVOT Diameter 2.3 cm LVOT Doppler LVOT Peak Gradient 4 mmHg LVOT Mean Gradient 2 mmHg LVOT VTI 17 cm LVOT VTI/AV VTI Ratio 0.8 LVOT Stroke Volume 71 ml LVOT CO 6.1 l/min LVOT CI 2.3 l/min/m2 Pulmonic Valve Name Value Normal
[2024-03-14 04:54] LABS: Estimated CRCL calculation 84 ml/min; Estimated Glomerular Filt Rate > 60
[2024-03-14 05:05] LABS: Vancomycin Trough 10.4 ug/mL (10.0-20.0)
[2024-03-14] MEDS: PIPERACILLN/TAZ 3.375GM/NS50ML 3.375 GM/50 ML BAG IVPB ×4 (05:34→17:14)
[2024-03-14] MEDS: VANCOMYCIN 1,500 MG/NS 500 ML 1,500 MG/500 ML BAG 250 MG IVPB (06:25)
[2024-03-14] MEDS: AZITHROMYCIN 500 MG/NS 250 ML 500 MG/250 ML BAG 250 MG IVPB (08:35)
[2024-03-14] MEDS: ENOXAPARIN 40 MG/0.4 ML SYRINGE SUB-Q (08:41)
--- NOTE | 2024-03-14 13:27 | PM.IMPN ---
Progress Note: A&P Assessment and Plan (1) Sepsis: Qualifiers: Acute renal failure type: unspecified Sepsis acute organ dysfunction status: with acute organ dysfunction Sepsis type: sepsis due to unspecified organism Severe sepsis acute organ dysfunction type: acute renal failure Severe sepsis shock status: without septic shock Qualified Code(s): A41.9 - Sepsis, unspecified organism; R65.20 - Severe sepsis without septic shock; N17.9 - Acute kidney failure, unspecified Code(s): A41.9 - Sepsis, unspecified organism Status: Acute Assessment and Plan: Likely from UTI Vital normal and within normal limits S/p IVF Imaging on admission no acute changes blood and urine cultures MRSA pending and repeat CXR pending, lactic acid f/u cultures (2) Altered mental status: Qualifiers: Altered mental status type: unspecified Qualified Code(s): R41.82 - Altered mental status, unspecified Code(s): R41.82 - Altered mental status, unspecified Status: Acute Assessment and Plan: - head CT: No acute intracranial findings - TSH mildly low with normal T3/T4 - UDS and ETOH negative - suspect alteration due to severe sepsis, back to baseline (3) Acute UTI: Code(s): N39.0 - Urinary tract infection, site not specified Status: Acute Assessment and Plan: ruled out Urine culture negative (4) Acute hypokalemia: Code(s): E87.6 - Hypokalemia Status: Acute Assessment and Plan: k 3.9 resolved continue monitoring (5) RAJESH (acute kidney injury): Code(s): N17.9 - Acute kidney failure, unspecified Status: Acute Assessment and Plan: Cr 1.1, 1.6 on admission continue monitoring (6) Elevated troponin: Code(s): R79.89 - Other specified abnormal findings of blood chemistry Status: Acute Assessment and Plan: Troponin 0.086 from 0.182 on admission patient denies any chest ECHo pending trend troponin cardiology consulted Plan Diet: Heart healthy DVT Prophylaxis: Sq Lovenox Code Status: Full code Subjective Date/time seen: 03/14/24 13:27 Interval history: Patient comfortable at bedside and alert and oriented x3. No overnight event Review of Systems Review of Systems: All systems reviewed & are unremarkable except as noted in HPI and below Exam Narrative: General: alert and comfortable Eyes: EOMI, PERRLA ENNT External ears normal, Neck is supple, no masses, Respiratory systems: Clear to auscultation Cardiovascular S1, S2, normal rhythm, no murmur, rub, or gallop; no thrill or palpable murmurs on palpation. Gastrointestinal: soft, non-tender, and non-distended abdomen with no masses; BS present Skin: no rash, lesions, ulcerations, subcutaneous nodules or induration Musculoskeletal: no abnormality and no tenderness, normal ROM Neurologic: Alert and oriented x3, non focal Mental Status Exam: normal affect Const: General: comfortable and no acute distress Other: , male, nontoxic appearance HENMT: Face/Nose/Sinus: Normal nares present Mouth: Yes moist mucous membranes Other: No trauma to oral mucosa or tongue Eyes: General: appearance normal, both eyes and all related structures Sclera: sclerae normal Pupils: Equal, round and reactive pupils present EOM: EOMs intact bilaterally Resp: Effort & Inspection: normal respiratory effort Auscultation: clear to auscultation bilaterally Cardio: Rate: regular rate Rhythm: regular rhythm Other: Occasional ectopy, no murmur GI: Other: Abdomen rounded, soft, nontender. Active bowel sounds in all quadrants. Urinary Catheter: Urinary Catheter: patent and draining and urine pink (+sediment) Skin: General skin exam: normal color and no rashes or lesions noted Wounds: no wounds Neuro: Cranial nerves: Yes Equal, round and reactive pupils present Speech: norm
[2024-03-14] MEDS: METOPROLOL SUCCINATE EXT REL 25 MG TABCR PO (13:46)
[2024-03-14] MEDS: FUROSEMIDE 20 MG TABLET PO (13:46)
[2024-03-14] MEDS: ASPIRIN 81 MG CHEWABLE TABLET PO (13:47)
[2024-03-14] MEDS: MIRABEGRON 25 MG ER TABLET PO (13:47)
[2024-03-14] MEDS: ROSUVASTATIN 20 MG TABLET 40 MG PO (13:47)
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
[2024-03-15] VITALS (10 sets, daily range): BP systolic 107–163; BP diastolic 52–96; PULSE 73–85; RESP 18–22; TEMP 36.2–37.5; O2SAT 97–100
[2024-03-15] MEDS: PIPERACILLN/TAZ 3.375GM/NS50ML 3.375 GM/50 ML BAG IVPB ×5 (00:20→23:50)
[2024-03-15] MEDS: METOPROLOL SUCCINATE EXT REL 25 MG TABCR PO (09:04)
[2024-03-15] MEDS: FUROSEMIDE 20 MG TABLET PO (09:04)
[2024-03-15] MEDS: MIRABEGRON 25 MG ER TABLET PO (09:05)
[2024-03-15] MEDS: ROSUVASTATIN 20 MG TABLET 40 MG PO (09:05)
[2024-03-15] MEDS: ASPIRIN 81 MG CHEWABLE TABLET PO (09:05)
[2024-03-15] MEDS: ENOXAPARIN 40 MG/0.4 ML SYRINGE SUB-Q (09:05)
[2024-03-15] MEDS: AZITHROMYCIN 500 MG/NS 250 ML 500 MG/250 ML BAG 250 MG IVPB (09:06)
--- NOTE | 2024-03-15 11:19 | PM.PNCARD ---
Progress Note: A&P Assessment and Plan (1) Elevated troponin: Code(s): R79.89 - Other specified abnormal findings of blood chemistry Status: Acute Plan Elevated troponin likely demand ischemia in setting of sepsis and RAJESH transthoracic echocardiogram unremarkable Sepsis possible urinary tract infection RAJESH on admission likely related to hypertension hypokalemia improved Past medical history of coronary artery disease cannot obtain further details Plan Continue statin Continue Aspirin 81 mg daily Workup and management for sepsis by primary team Consider nuclear stress test at a later date when recover from this acute illness Subjective Date/time seen: 03/15/24 11:19 Interval history: No acute events Tele Sinus rhythm Review of Systems Review of Systems: All systems reviewed & are unremarkable except as noted in HPI and below Exam Const: General: comfortable and no acute distress Other: Able to lie flat HENMT: Face/Nose/Sinus: Normal nares present and no epistaxis Mouth: Yes moist mucous membranes Eyes: Sclera: sclerae normal Pupils: Equal, round and reactive pupils present Neck: Neck: supple and no JVD Carotids: no bruits Resp: Auscultation: clear to auscultation bilaterally and lung sounds not diminished Other: No chest wall tenderness Cardio: Rate: regular rate Rhythm: regular rhythm Heart sounds: no gallops, no murmurs and no rubs GI: GI Palp: Yes Soft to palpation and No Tenderness to palpation present (GI) Auscultation: normal bowel sounds Skin: General skin exam: normal color, rashes and/or lesions noted and no erythema Other: Warm Neuro: Cranial nerves: Yes Equal, round and reactive pupils present Speech: normal speech Other: No obvious focal deficit or facial asymmetry Extrem: General: no edema Other: Normal capillary refills Intact distal pulses. Objective Data Vital Signs Vital Signs: Vital Signs - 24 hr 03/14/24 11:50 03/14/24 12:00 03/14/24 13:46 Temperature 36.5 C Pulse Rate 90 97 Respiratory Rate 18 Blood Pressure 142/76 H Pulse Oximetry 98 Oxygen Delivery Room Air 03/14/24 12:00 03/14/24 12:00 03/14/24 14:00 Temperature Pulse Rate 91 83 Respiratory Rate Blood Pressure Pulse Oximetry Oxygen Delivery Room Air 03/14/24 14:52 03/14/24 16:00 03/14/24 16:00 Temperature 36.7 C Pulse Rate 96 Respiratory Rate 18 Blood Pressure 143/83 H Pulse Oximetry 99 Oxygen Delivery Room Air Room Air 03/14/24 16:00 03/14/24 18:00 03/14/24 20:00 Temperature 36.3 C L Pulse Rate 87 86 85 Respiratory Rate 20 Blood Pressure 135/78 Pulse Oximetry 97 Oxygen Delivery 03/14/24 20:00 03/14/24 20:00 03/14/24 22:00 Temperature Pulse Rate 91 85 Respiratory Rate Blood Pressure Pulse Oximetry Oxygen Delivery Room Air 03/15/24 00:00 03/15/24 04:00 03/15/24 00:00 Temperature 37.0 C 37.2 C Pulse Rate 77 73 76 Respiratory Rate 20 20 Blood Pressure 128/69 140/88 Pulse Oximetry 97 97 Oxygen Delivery 03/15/24 00:00 03/15/24 02:00 03/15/24 04:00 Temperature Pulse Rate 82 77 Respiratory Rate Blood Pressure Pulse Oximetry Oxygen Delivery Room Air 03/15/24 04:00 03/15/24 06:00 03/15/24 07:44 Temperature 36.8 C Pulse Rate 75 75 Respiratory Rate 18 Blood Pressure 142/96 H Pulse Oximetry 98 Oxygen Delivery Room Air 03/15/24 09:04 03/15/24 08:00 Temperature Pulse Rate 83 85 Respiratory Rate Blood Pressure Pulse Oximetry Oxygen Delivery Intake/Output Intake/Output: Intake & Output 03/12/24 03/13/24 03/14/24 03/15/24 23:59 23:59 23:59 23:59 Intake Total 5490 2480 1800 590 Output Total 2100 1450 700 Balance 5490 380 350 -110 Meds/Results Medications: Active Medications Generic Name Dose Route Start Last Admin Trade Name Freq PRN Reason Stop Dose Admin Acetaminophen
--- NOTE | 2024-03-15 14:48 | PC.NURSE ---
This patient, Tashi Esposito, was received from [ [id number]] on 03/15/24 at 1433. Patient/family oriented to unit policies and routines
--- NOTE | 2024-03-15 15:05 | PM.IMPN ---
Progress Note: A&P Assessment and Plan (1) Sepsis: Qualifiers: Acute renal failure type: unspecified Sepsis acute organ dysfunction status: with acute organ dysfunction Sepsis type: sepsis due to unspecified organism Severe sepsis acute organ dysfunction type: acute renal failure Severe sepsis shock status: without septic shock Qualified Code(s): A41.9 - Sepsis, unspecified organism; R65.20 - Severe sepsis without septic shock; N17.9 - Acute kidney failure, unspecified Code(s): A41.9 - Sepsis, unspecified organism Status: Acute Assessment and Plan: Likely from UTI Vital normal and within normal limits S/p IVF Imaging on admission no acute changes blood and urine cultures MRSA negative and repeat CXR negative and lactic acid resolved urine cultures negative, blood culture still negative complete 5 days of Abx monitor (2) Altered mental status: Qualifiers: Altered mental status type: unspecified Qualified Code(s): R41.82 - Altered mental status, unspecified Code(s): R41.82 - Altered mental status, unspecified Status: Acute Assessment and Plan: - head CT: No acute intracranial findings - TSH mildly low with normal T3/T4 - UDS and ETOH negative - suspect alteration due to severe sepsis, back to baseline (3) Acute UTI: Code(s): N39.0 - Urinary tract infection, site not specified Status: Acute Assessment and Plan: ruled out Urine culture negative (4) Acute hypokalemia: Code(s): E87.6 - Hypokalemia Status: Acute Assessment and Plan: k 3.9 resolved continue monitoring (5) RAJESH (acute kidney injury): Code(s): N17.9 - Acute kidney failure, unspecified Status: Acute Assessment and Plan: Cr 1.1, 1.6 on admission continue monitoring (6) Elevated troponin: Code(s): R79.89 - Other specified abnormal findings of blood chemistry Status: Acute Assessment and Plan: Troponin 0.086 from 0.182 on admission patient denies any chest ECHO EF 55-60% no regional wall motion abnormalities trend troponin Cardiology recommending stress test later cardiology following Plan Diet: Heart healthy DVT Prophylaxis: Sq Lovenox Code Status: Full code Subjective Date/time seen: 03/15/24 15:05 Interval history: Patient comfortable at bedside PT/OT recommends SNF Review of Systems Review of Systems: All systems reviewed & are unremarkable except as noted in HPI and below Exam Narrative: General: alert and comfortable Eyes: EOMI, PERRLA ENNT External ears normal, Neck is supple, no masses, Respiratory systems: Clear to auscultation Cardiovascular S1, S2, normal rhythm, no murmur, rub, or gallop; no thrill or palpable murmurs on palpation. Gastrointestinal: soft, non-tender, and non-distended abdomen with no masses; BS present Skin: no rash, lesions, ulcerations, subcutaneous nodules or induration Musculoskeletal: no abnormality and no tenderness, normal ROM Neurologic: Alert and oriented x3, non focal Mental Status Exam: normal affect Const: General: comfortable and no acute distress Other: , male, nontoxic appearance HENMT: Face/Nose/Sinus: Normal nares present Mouth: Yes moist mucous membranes Other: No trauma to oral mucosa or tongue Eyes: General: appearance normal, both eyes and all related structures Sclera: sclerae normal Pupils: Equal, round and reactive pupils present EOM: EOMs intact bilaterally Resp: Effort & Inspection: normal respiratory effort Auscultation: clear to auscultation bilaterally Cardio: Rate: regular rate Rhythm: regular rhythm Other: Occasional ectopy, no murmur GI: Other: Abdomen rounded, soft, nontender. Active bowel sounds in all quadrants. Urinary Catheter: Urinary Catheter: patent and draining and urine pink (+sediment) Skin: General skin ex
[2024-03-16 06:00] VITALS: BP 150/81; PULSE 76; RESP 18; TEMP 36.7; O2SAT 98
[2024-03-16] MEDS: PIPERACILLN/TAZ 3.375GM/NS50ML 3.375 GM/50 ML BAG IVPB ×3 (06:38→17:32)
[2024-03-16 08:13] LABS: Basophils Percent Auto 0.4 % (0.2-1.2); Eosinophils Absolute Auto 0.4 K/mm3 (0-0.3); Eosinophils Percent Auto 4.1 % (0-4.4); Hematocrit 41.8 % (42.0-52.0); Hemoglobin 13.4 g/dL (14.0-18.0); Immature Granulocyte Absolute 0.03 K/mm3 (0.00-0.031); Immature Granulocyte Percent A 0.3 % (0-0.5); Lymphocytes Absolute Auto 1.82 K/mm3 (0.9-3.2); Mean Corpuscular HGB Conc 32.1 g/dl (32-36); Mean Corpuscular Hemoglobin 28.2 pg (26-34); Mean Platelet Volume 11.3 fl (7.4-10.4); Monocytes Absolute Auto 0.7 K/mm3 (0.1-0.6); Neutrophils Absolute Auto 6.1 K/mm3 (1.3-6.7); Neutrophils Percent Auto 67.2 % (45.5-73.1); Platelet Count Result 197 k/mm3 (150-375); Red Blood Count 4.75 M/mm3 (4.6-6.20); Red Cell Distribution Width 13.4 % (11.5-14.5); White Blood Count 9.1 K/mm3 (4.5-10.0)
[2024-03-16 08:22] LABS: Alanine Aminotransferase 122 U/L (6-50); Albumin Level 3.8 g/dL (3.5-5.1); Alkaline Phosphatase 119 U/L (38-126); Anion Gap 7 mmol/L (4-12); Aspartate Amino Transferase 120 U/L (17-59); Bilirubin,Total 0.7 mg/dL (0.2-1.3); Blood Urea Nitrogen 11 mg/dL (9-20); Calcium 8.5 mg/dL (8.4-10.2); Carbon Dioxide 27 mmol/L (22-30); Chloride 103 mmol/L (98-107); Estimated CRCL calculation 95 ml/min; Estimated Glomerular Filt Rate > 60; Glucose 137 mg/dL (65-110); Magnesium 2.2 mg/dL (1.6-2.3); Potassium 4.1 mmol/L (3.4-5.0); Sodium 137 mmol/L (137-145)
--- NOTE | 2024-03-16 09:29 | PM.PNCARD ---
Progress Note: A&P Assessment and Plan (1) Elevated troponin: Code(s): R79.89 - Other specified abnormal findings of blood chemistry Status: Acute Plan Elevated troponin likely demand ischemia in setting of sepsis and RAJESH transthoracic echocardiogram unremarkable Sepsis possible urinary tract infection RAJESH on admission likely related to hypertension hypokalemia improved Past medical history of coronary artery disease cannot obtain further details Plan Continue statin Continue Aspirin 81 mg daily Workup and management for sepsis by primary team Echocardiogram showed normal LV systolic function, no significant valvular pathology. Consider nuclear stress test at a later date as an outpatient when recover from this acute illness She will sign off. Call with any questions. Subjective Date/time seen: 03/16/24 09:29 Interval history: Cardiology follow-up for elevated troponin Date of service 03/16/2024: Patient denies any chest pain. He does not have any active complaints at the time of my evaluation. Review of Systems Review of Systems: All systems reviewed & are unremarkable except as noted in HPI and below Exam Const: General: comfortable and no acute distress Other: Able to lie flat HENMT: Face/Nose/Sinus: Normal nares present and no epistaxis Mouth: Yes moist mucous membranes Eyes: Sclera: sclerae normal Pupils: Equal, round and reactive pupils present Neck: Neck: supple and no JVD Carotids: no bruits Resp: Auscultation: clear to auscultation bilaterally and lung sounds not diminished Other: No chest wall tenderness Cardio: Rate: regular rate Rhythm: regular rhythm Heart sounds: no gallops, no murmurs and no rubs GI: Auscultation: normal bowel sounds Skin: General skin exam: normal color, rashes and/or lesions noted and no erythema Other: Warm Neuro: Cranial nerves: Yes Equal, round and reactive pupils present Speech: normal speech Other: No obvious focal deficit or facial asymmetry Extrem: General: no edema Other: Normal capillary refills Intact distal pulses. Objective Data Vital Signs Vital Signs: Vital Signs - 24 hr 03/15/24 14:49 03/15/24 15:15 03/15/24 16:00 Temperature 36.4 C L 36.2 C L Pulse Rate 78 78 Respiratory Rate 22 H 22 H Blood Pressure 163/80 H 107/52 L Pulse Oximetry 98 100 Oxygen Delivery Room Air 03/15/24 21:05 03/15/24 20:00 03/16/24 06:00 Temperature 37.5 C 36.7 C Pulse Rate 81 76 Respiratory Rate 20 18 Blood Pressure 149/83 H 150/81 H Pulse Oximetry 98 98 Oxygen Delivery Room Air Intake/Output Intake/Output: Intake & Output 03/13/24 03/14/24 03/15/24 03/16/24 23:59 23:59 23:59 23:59 Intake Total 2480 1800 980 640 Output Total 2100 0508 947 5446 Balance 380 350 280 -460 Meds/Results Medications: Active Medications Generic Name Dose Route Start Last Admin Trade Name Freq PRN Reason Stop Dose Admin Acetaminophen 650 mg 03/12/24 10:41 03/12/24 11:17 Acetaminophen 650 Mg Suppository RECTAL 650 mg Q6H PRN Administration Mild Pain (1-3) or Fever Hydrocodone Bitart/Acetaminophen 1 tab 03/15/24 18:46 Hydrocodone/Acetaminophen (*Crx) 5-325 Mg Tablet PO Q4H PRN Pain Rated 4-6 Aspirin 81 mg 03/14/24 13:35 03/15/24 09:05 Aspirin 81 Mg Chewable Tablet PO 81 mg DAILY PIETER Administration Enoxaparin Sodium 40 mg 03/14/24 09:00 03/15/24 09:05 Enoxaparin 40 Mg/0.4 Ml Syringe SUB-Q 40 mg DAILY PIETER Administration Furosemide 20 mg 03/14/24 13:40 03/15/24 09:04 Furosemide 20 Mg Tablet PO 20 mg QAM PIETER Administration Piperacillin/Tazobactam/Dextrose 3.375 gm in 50 mls @ 100 mls/hr 03/12/24 18:00 03/16/24 06:38 Zosyn 3.375 Gm/Ns 50 Ml IVPB 100 mls/hr Q6H PIETER Administration Azithromycin 500 mg in 250 mls @ 250 mls/hr 03/13/24 09:00 03/15/24 09:06 Zithromax IVPB 250 mls/hr Q24H PIETER Administration Me
[2024-03-16] MEDS: AZITHROMYCIN 500 MG/NS 250 ML 500 MG/250 ML BAG 250 MG IVPB (10:36)
[2024-03-16] MEDS: FUROSEMIDE 20 MG TABLET PO (10:37)
[2024-03-16] MEDS: ASPIRIN 81 MG CHEWABLE TABLET PO (10:37)
[2024-03-16] MEDS: ROSUVASTATIN 20 MG TABLET 40 MG PO (10:37)
[2024-03-16] MEDS: MIRABEGRON 25 MG ER TABLET PO (10:38)
[2024-03-16] MEDS: HYDROcodone/acetaminophen (*CRX) 5-325 MG TABLET 1 TAB PO (10:45)
[2024-03-16 10:46] VITALS: BP 138/88; PULSE 75; RESP 16; O2SAT 97
[2024-03-16 10:47] VITALS: PULSE 75
[2024-03-16] MEDS: METOPROLOL SUCCINATE EXT REL 25 MG TABCR PO (10:47)
[2024-03-16] MEDS: ENOXAPARIN 40 MG/0.4 ML SYRINGE SUB-Q (10:47)
--- NOTE | 2024-03-16 12:27 | PM.IMPN ---
Progress Note: A&P Assessment and Plan (1) Sepsis: Qualifiers: Acute renal failure type: unspecified Sepsis acute organ dysfunction status: with acute organ dysfunction Sepsis type: sepsis due to unspecified organism Severe sepsis acute organ dysfunction type: acute renal failure Severe sepsis shock status: without septic shock Qualified Code(s): A41.9 - Sepsis, unspecified organism; R65.20 - Severe sepsis without septic shock; N17.9 - Acute kidney failure, unspecified Code(s): A41.9 - Sepsis, unspecified organism Status: Acute Assessment and Plan: Likely from UTI Vital normal and within normal limits S/p IVF Imaging on admission no acute changes blood and urine cultures MRSA negative and repeat CXR negative and lactic acid resolved urine cultures negative, blood culture still negative to complete 5 days of Abx monitor (2) Altered mental status: Qualifiers: Altered mental status type: unspecified Qualified Code(s): R41.82 - Altered mental status, unspecified Code(s): R41.82 - Altered mental status, unspecified Status: Acute Assessment and Plan: - head CT: No acute intracranial findings - TSH mildly low with normal T3/T4 - UDS and ETOH negative - suspect alteration due to severe sepsis, back to baseline (3) Acute UTI: Code(s): N39.0 - Urinary tract infection, site not specified Status: Acute Assessment and Plan: ruled out Urine culture negative (4) Acute hypokalemia: Code(s): E87.6 - Hypokalemia Status: Acute Assessment and Plan: k 3.9 resolved continue monitoring (5) RAJESH (acute kidney injury): Code(s): N17.9 - Acute kidney failure, unspecified Status: Acute Assessment and Plan: resolved Cr 1.0, 1.6 on admission continue monitoring (6) Elevated troponin: Code(s): R79.89 - Other specified abnormal findings of blood chemistry Status: Acute Assessment and Plan: Troponin 0.086 from 0.182 on admission patient denies any chest ECHO EF 55-60% no regional wall motion abnormalities trend troponin Cardiology recommends outpatient stress test cardiology following (7) Elevated liver enzymes: Code(s): R74.8 - Abnormal levels of other serum enzymes Status: Acute Assessment and Plan: AST and ALT, 120 adn 122 respectively US liver and hepatitis viral panel pending monitor Plan Diet: Heart healthy DVT Prophylaxis: Sq Lovenox Code Status: Full code Subjective Date/time seen: 03/16/24 12:27 Interval history: Cardiology evaluated today and recommended outpatient Stress test however liver enzymes are elevated today and US liver and Hepatitis viral panel ordered Discharged pending liver workup and placement Review of Systems Review of Systems: All systems reviewed & are unremarkable except as noted in HPI and below Exam Narrative: General: alert and comfortable Eyes: EOMI, PERRLA ENNT External ears normal, Neck is supple, no masses, Respiratory systems: Clear to auscultation Cardiovascular S1, S2, normal rhythm, no murmur, rub, or gallop; no thrill or palpable murmurs on palpation. Gastrointestinal: soft, non-tender, and non-distended abdomen with no masses; BS present Skin: no rash, lesions, ulcerations, subcutaneous nodules or induration Musculoskeletal: no abnormality and no tenderness, normal ROM Neurologic: Alert and oriented x3, non focal Mental Status Exam: normal affect Const: General: comfortable and no acute distress Other: , male, nontoxic appearance HENMT: Face/Nose/Sinus: Normal nares present Mouth: Yes moist mucous membranes Other: No trauma to oral mucosa or tongue Eyes: General: appearance normal, both eyes and all related structures Sclera: sclerae normal Pupils: Equal, round and reactive pupils present EOM: EOMs intact bilaterally Resp
[2024-03-16 13:33] LABS: Hepatitis B Surface Antigen Negative (Negative)
[2024-03-16 13:39] LABS: HAV RESULT Negative (Negative); Hepatitis B Core IgM Result Negative (Negative)
[2024-03-16 13:50] LABS: Hepatitis C Virus Antibody Negative (Negative)
[2024-03-16 20:51] VITALS: BP 135/88; PULSE 74; RESP 20; TEMP 36.4; O2SAT 99
[2024-03-17 05:35] VITALS: BP 137/82; PULSE 75; RESP 16; TEMP 36.9; O2SAT 96
[2024-03-17 06:54] LABS: Basophils Percent Auto 0.5 % (0.2-1.2); Eosinophils Absolute Auto 0.4 K/mm3 (0-0.3); Eosinophils Percent Auto 4.7 % (0-4.4); Hematocrit 42.8 % (42.0-52.0); Hemoglobin 13.6 g/dL (14.0-18.0); Immature Granulocyte Absolute 0.04 K/mm3 (0.00-0.031); Immature Granulocyte Percent A 0.5 % (0-0.5); Lymphocytes Absolute Auto 1.88 K/mm3 (0.9-3.2); Lymphocytes Percent Auto 22.3 % (18.3-44.2); Mean Corpuscular HGB Conc 31.8 g/dl (32-36); Mean Corpuscular Hemoglobin 28.2 pg (26-34); Mean Corpuscular Volume 88.6 fl (80-100); Mean Platelet Volume 11.1 fl (7.4-10.4); Monocytes Absolute Auto 0.7 K/mm3 (0.1-0.6); Monocytes Percent Auto 8.5 % (2.6-8.5); Neutrophils Absolute Auto 5.4 K/mm3 (1.3-6.7); Neutrophils Percent Auto 63.5 % (45.5-73.1); Platelet Count Result 245 k/mm3 (150-375); Red Blood Count 4.83 M/mm3 (4.6-6.20); Red Cell Distribution Width 13.5 % (11.5-14.5); White Blood Count 8.4 K/mm3 (4.5-10.0)
[2024-03-17 06:56] LABS: Alanine Aminotransferase 143 U/L (6-50); Albumin Level 3.8 g/dL (3.5-5.1); Alkaline Phosphatase 126 U/L (38-126); Anion Gap 5 mmol/L (4-12); Aspartate Amino Transferase 95 U/L (17-59); Bilirubin,Total 0.7 mg/dL (0.2-1.3); Blood Urea Nitrogen 14 mg/dL (9-20); Calcium 8.7 mg/dL (8.4-10.2); Carbon Dioxide 29 mmol/L (22-30); Chloride 103 mmol/L (98-107); Estimated CRCL calculation 86 ml/min; Estimated Glomerular Filt Rate > 60; Glucose 137 mg/dL (65-110); Magnesium 2.2 mg/dL (1.6-2.3); Potassium 4.2 mmol/L (3.4-5.0); Sodium 137 mmol/L (137-145)
[2024-03-17 06:57] LABS: Lactic Acid Reflex 0.7 mmol/L (0.7-2.0)
[2024-03-17 08:29] VITALS: BP 131/78; PULSE 72; O2SAT 95
[2024-03-17 08:31] VITALS: PULSE 72
[2024-03-17] MEDS: ASPIRIN 81 MG CHEWABLE TABLET PO (08:31)
[2024-03-17] MEDS: METOPROLOL SUCCINATE EXT REL 25 MG TABCR PO (08:31)
[2024-03-17] MEDS: FUROSEMIDE 20 MG TABLET PO (08:32)
[2024-03-17] MEDS: ROSUVASTATIN 20 MG TABLET 40 MG PO (08:32)
[2024-03-17] MEDS: MIRABEGRON 25 MG ER TABLET PO (08:32)
[2024-03-17] MEDS: ENOXAPARIN 40 MG/0.4 ML SYRINGE SUB-Q (08:36)
[2024-03-17 14:00] VITALS: BP 133/76; PULSE 70; RESP 14; TEMP 36.2; O2SAT 99
--- NOTE | 2024-03-17 16:05 | PM.IMPN ---
Progress Note: A&P Assessment and Plan (1) Sepsis: Qualifiers: Acute renal failure type: unspecified Sepsis acute organ dysfunction status: with acute organ dysfunction Sepsis type: sepsis due to unspecified organism Severe sepsis acute organ dysfunction type: acute renal failure Severe sepsis shock status: without septic shock Qualified Code(s): A41.9 - Sepsis, unspecified organism; R65.20 - Severe sepsis without septic shock; N17.9 - Acute kidney failure, unspecified Code(s): A41.9 - Sepsis, unspecified organism Status: Acute Assessment and Plan: Likely from UTI Vital normal and within normal limits S/p IVF Imaging on admission no acute changes blood and urine cultures MRSA negative and repeat CXR negative and lactic acid resolved urine cultures negative, blood culture still negative to complete 5 days of Abx monitor (2) Altered mental status: Qualifiers: Altered mental status type: unspecified Qualified Code(s): R41.82 - Altered mental status, unspecified Code(s): R41.82 - Altered mental status, unspecified Status: Acute Assessment and Plan: - head CT: No acute intracranial findings - TSH mildly low with normal T3/T4 - UDS and ETOH negative - suspect alteration due to severe sepsis, back to baseline (3) Acute UTI: Code(s): N39.0 - Urinary tract infection, site not specified Status: Acute Assessment and Plan: ruled out Urine culture negative (4) Acute hypokalemia: Code(s): E87.6 - Hypokalemia Status: Acute Assessment and Plan: k 3.9 resolved continue monitoring (5) RAJESH (acute kidney injury): Code(s): N17.9 - Acute kidney failure, unspecified Status: Acute Assessment and Plan: resolved Cr 1.0, 1.6 on admission continue monitoring (6) Elevated troponin: Code(s): R79.89 - Other specified abnormal findings of blood chemistry Status: Acute Assessment and Plan: Troponin 0.086 from 0.182 on admission patient denies any chest ECHO EF 55-60% no regional wall motion abnormalities trend troponin Cardiology recommends outpatient stress test cardiology following (7) Elevated liver enzymes: Code(s): R74.8 - Abnormal levels of other serum enzymes Status: Acute Assessment and Plan: AST and ALT, 120 adn 122 respectively US liver and hepatitis viral panel pending monitor Plan Diet: Heart healthy DVT Prophylaxis: Sq Lovenox Code Status: Full code Subjective Date/time seen: 03/17/24 16:05 Interval history: No acute events overnight. Patient has completed a course of antibiotic for UTI. In regards to troponin elevation patient can be followed as an outpatient with Cardiology for nuclear stress test at a later date. Review of Systems Review of Systems: All systems reviewed & are unremarkable except as noted in HPI and below Exam Narrative: General: alert and comfortable Eyes: EOMI, PERRLA ENNT External ears normal, Neck is supple, no masses, Respiratory systems: Clear to auscultation Cardiovascular S1, S2, normal rhythm, no murmur, rub, or gallop; no thrill or palpable murmurs on palpation. Gastrointestinal: soft, non-tender, and non-distended abdomen with no masses; BS present Skin: no rash, lesions, ulcerations, subcutaneous nodules or induration Musculoskeletal: no abnormality and no tenderness, normal ROM Neurologic: Alert and oriented x3, non focal Mental Status Exam: normal affect Const: General: comfortable and no acute distress Other: , male, nontoxic appearance HENMT: Face/Nose/Sinus: Normal nares present Mouth: Yes moist mucous membranes Other: No trauma to oral mucosa or tongue Eyes: General: appearance normal, both eyes and all related structures Sclera: sclerae normal Pupils: Equal, round and reactive pupils present EOM: EOMs intact bilatera
[2024-03-17 20:25] VITALS: BP 123/68; PULSE 72; RESP 16; TEMP 36.1; O2SAT 98
[2024-03-18 05:37] VITALS: BP 127/69; PULSE 73; RESP 18; TEMP 36.4; O2SAT 99
[2024-03-18 06:55] LABS: Hematocrit 44.9 % (42.0-52.0); Hemoglobin 14.5 g/dL (14.0-18.0); Mean Corpuscular HGB Conc 32.3 g/dl (32-36); Mean Corpuscular Volume 89.8 fl (80-100); Mean Platelet Volume 11.4 fl (7.4-10.4); Platelet Count Result 258 k/mm3 (150-375); Red Cell Distribution Width 13.3 % (11.5-14.5); White Blood Count 9.4 K/mm3 (4.5-10.0)
[2024-03-18 07:01] LABS: Alanine Aminotransferase 145 U/L (6-50); Albumin Level 4.1 g/dL (3.5-5.1); Alkaline Phosphatase 142 U/L (38-126); Anion Gap 9 mmol/L (4-12); Aspartate Amino Transferase 78 U/L (17-59); Bilirubin,Total 0.7 mg/dL (0.2-1.3); Blood Urea Nitrogen 17 mg/dL (9-20); Carbon Dioxide 26 mmol/L (22-30); Chloride 101 mmol/L (98-107); Estimated CRCL calculation 84 ml/min; Estimated Glomerular Filt Rate > 60; Glucose 141 mg/dL (65-110); Potassium 4.2 mmol/L (3.4-5.0); Sodium 136 mmol/L (137-145)
[2024-03-18] MEDS: FUROSEMIDE 20 MG TABLET PO (09:30)
[2024-03-18] MEDS: MIRABEGRON 25 MG ER TABLET PO (09:30)
[2024-03-18 09:31] VITALS: PULSE 73
[2024-03-18] MEDS: ASPIRIN 81 MG CHEWABLE TABLET PO (09:31)
[2024-03-18] MEDS: ROSUVASTATIN 20 MG TABLET 40 MG PO (09:31)
[2024-03-18] MEDS: METOPROLOL SUCCINATE EXT REL 25 MG TABCR PO (09:31)
[2024-03-18] MEDS: ENOXAPARIN 40 MG/0.4 ML SYRINGE SUB-Q (09:31)
--- NOTE | 2024-03-18 11:29 | PM.DS ---
DS: Admitting Diagnosis Discharge Date 03/18/2024 Admitting Diagnosis Sepsis, Acute UTI, Altered mental status, Acute hypokalemia DS: Discharge Diagnosis Discharge Diagnosis (1) Sepsis: Qualifiers: Acute renal failure type: unspecified Sepsis acute organ dysfunction status: with acute organ dysfunction Sepsis type: sepsis due to unspecified organism Severe sepsis acute organ dysfunction type: acute renal failure Severe sepsis shock status: without septic shock Qualified Code(s): A41.9 - Sepsis, unspecified organism; R65.20 - Severe sepsis without septic shock; N17.9 - Acute kidney failure, unspecified Code(s): A41.9 - Sepsis, unspecified organism Status: Acute Assessment and Plan: Likely from UTI Vital normal and within normal limits S/p IVF Imaging on admission no acute changes blood and urine cultures MRSA negative and repeat CXR negative and lactic acid resolved urine cultures negative, blood culture still negative to complete 5 days of Abx monitor (2) Altered mental status: Qualifiers: Altered mental status type: unspecified Qualified Code(s): R41.82 - Altered mental status, unspecified Code(s): R41.82 - Altered mental status, unspecified Status: Acute Assessment and Plan: - head CT: No acute intracranial findings - TSH mildly low with normal T3/T4 - UDS and ETOH negative - suspect alteration due to severe sepsis, back to baseline (3) Acute UTI: Code(s): N39.0 - Urinary tract infection, site not specified Status: Acute Assessment and Plan: ruled out Urine culture negative (4) Acute hypokalemia: Code(s): E87.6 - Hypokalemia Status: Acute Assessment and Plan: k 3.9 resolved continue monitoring (5) RAJESH (acute kidney injury): Code(s): N17.9 - Acute kidney failure, unspecified Status: Acute Assessment and Plan: resolved Cr 1.0, 1.6 on admission continue monitoring (6) Elevated troponin: Code(s): R79.89 - Other specified abnormal findings of blood chemistry Status: Acute Assessment and Plan: Troponin 0.086 from 0.182 on admission patient denies any chest ECHO EF 55-60% no regional wall motion abnormalities trend troponin Cardiology recommends outpatient stress test cardiology following (7) Elevated liver enzymes: Code(s): R74.8 - Abnormal levels of other serum enzymes Status: Acute Assessment and Plan: AST and ALT, 120 adn 122 respectively US liver and hepatitis viral panel pending monitor Plan Diet: Heart healthy DVT Prophylaxis: Sq Lovenox Code Status: Full code DS: Summary Hospital Course Hospital Course: The patient presents here from home via EMS for further evaluation of unresponsiveness, altered mental status, and fever. The patient reports remembering he went to physical therapy yesterday at 10 a.m. which ends around 2-3 p.m. typically. Bus that transports the patient to and from PT had issues so he did not get home until 6 p.m. Patient spoke to his sister around 5-[address] while on his way home. Patient remembers arriving home and he remembers getting into the bath, cannot remember if it was last night or this morning. However, more likely this morning given he typically takes a bath in the morning before PT, the water was still warm, and the water was still running but had not overflowed. The patient's sister called his phone multiple times and dropped in via the speaker through his cameras and there was no response which is not typical. The patient's sister then went to check on him today and found him in the bathtub with the water up to his neck. Initially the patient was responsive to pain only. Currently awake but mildly confused. Upon arrival to the emergency department the patient was significantly febrile at 102.9? F and tachycardic at 132. Denies dysuria, urinary frequency, abdom
[2024-03-18 11:42] LABS: Glucose Point of Care 138 mg/dl (65-105)
== END 2024-03-18 15:36 | DRG 872 ==
LOC: ANHED 15:22 → ANHIMU 17:10 → ANH3MEDSUR 03-15 14:27
PROVIDERS: Internal Medicine; Student in an Organized Health Care Education/Training Program; Admitting Provider Family Medicine; Emergency Provider Emergency Medicine; PCP Family Medicine; Visit Provider General Practice
DX: A41.9 Sepsis, unspecified organism (principal); N17.9 Acute kidney failure, unspecified; I24.89 Other forms of acute ischemic heart disease; I25.10 Atherosclerotic heart disease of native coronary artery without angina pectoris; R65.20 Severe sepsis without septic shock; E87.6 Hypokalemia; E78.00 Pure hypercholesterolemia, unspecified; E53.8 Deficiency of other specified B group vitamins; K21.9 Gastro-esophageal reflux disease without esophagitis; G35 Multiple sclerosis; R74.8 Abnormal levels of other serum enzymes; Z20.822 Contact with and (suspected) exposure to COVID-19; Z79.82 Long term (current) use of aspirin
CPT/HCPCS: 36415; 36600; 70450; 71045; 71250; 72125; 74176; 76705; 80053; 80074; 80143; 80202; 80307; 81001; 82550; 82565; 82805; 82948; 83605; 83690; 83735; 83880; 84100; 84439; 84443; 84480; 84484; 85018; 85025; 85027; 85610; 85730; 87040; 87086; 87637; 87641; 93005; 93306; 96365; 96366; 96367; 96368; 96372; 97110; 97161; 97165; 97530; 97535; 99285; A9270; G0378; J0456; J1650; J2543; J3370; J3480; J7030; J7040

== ENCOUNTER 2024-04-12 11:06 | Emergency (ER) | payer MEDICARE, SELFPAY ==
--- NOTE | ~2024-04-12 | CT_ITS ---
EXAMINATION: CT brain wo con DATE: 04/12/2024 14:28 INDICATION: Fall, head injury, posterior head abrasion. TECHNIQUE: Computed tomography (CT) of the head was performed without intravenous contrast. The mA wa s adjusted according to patient size. Iterative reconstruction technique was employed. Exam dose: 60 5.33 mGy-cm total exam DLP. COMPARISON: None FINDINGS: Bilateral vertebral artery, basilar artery and bilateral carotid siphon internal carotid ar tracy calcifications. There is prominent patchy nonspecific diminished attenuation of the cerebral white matter, which may be due to small ischemic changes. Chronic right basal ganglia lacunar infarct. There is prominent central and cortical cerebral and cerebellar volume loss, greater than expected fo r chronological age. No intracranial mass lesion or hemorrhage, midline shift or mass effect is evident. No subdural or ep idural hematoma is detected. No skull fracture. The mastoid air cells and included paranasal sinuses are unremarkable. IMPRESSION: No skull fracture or acute intracranial finding Cerebral atherosclerosis and chronic small vessel ischemic changes of the cerebral white matter Chronic lacunar infarct of the right basal ganglia Greater than expected cerebral and cerebellar atrophy for chronological age Reviewed, dictated and finalized at [facility]. Reviewed, dictated and finalized at [facility]. 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
--- NOTE | ~2024-04-12 | XR_ITS ---
EXAMINATION: XR chest 1V portable DATE: 04/12/2024 13:59 INDICATION: Weakness. Leg on the ground for hours post fall TECHNIQUE: frontal view of the chest was obtained. COMPARISON: Chest radiograph dated 03/13/2024 FINDINGS: Asymmetric increased lucency of the right hemithorax relative the left including both the lung and so ft tissues likely artifact of rightward rotation of the patient. No focal airspace opacities, pulmona ry edema, pleural effusion or pneumothorax. The cardiomediastinal silhouette is normal. Old healed me dial right clavicle fracture deformity. A couple more subtle old right rib fractures. IMPRESSION: 1. No acute cardiopulmonary disease. Reviewed, dictated and finalized at [facility]. CARE ASSOCIATE
[2024-04-12 12:23] VITALS: BP 148/75; PULSE 94; RESP 16; TEMP 36.4; O2SAT 100
[2024-04-12 12:24] LABS: Basophils Percent Auto 0.3 % (0.2-1.2); Eosinophils Absolute Auto 0.2 K/mm3 (0-0.3); Eosinophils Percent Auto 1.5 % (0-4.4); Hemoglobin 15.7 g/dL (14.0-18.0); Immature Granulocyte Absolute 0.03 K/mm3 (0.00-0.031); Immature Granulocyte Percent A 0.3 % (0-0.5); Lymphocytes Absolute Auto 2.34 K/mm3 (0.9-3.2); Lymphocytes Percent Auto 19.7 % (18.3-44.2); Mean Corpuscular HGB Conc 33.4 g/dl (32-36); Mean Corpuscular Hemoglobin 28.8 pg (26-34); Mean Corpuscular Volume 86.1 fl (80-100); Mean Platelet Volume 10.9 fl (7.4-10.4); Monocytes Absolute Auto 0.8 K/mm3 (0.1-0.6); Monocytes Percent Auto 7.1 % (2.6-8.5); Neutrophils Absolute Auto 8.5 K/mm3 (1.3-6.7); Neutrophils Percent Auto 71.1 % (45.5-73.1); Platelet Count Result 264 k/mm3 (150-375); Red Blood Count 5.46 M/mm3 (4.6-6.20); Red Cell Distribution Width 13.2 % (11.5-14.5); White Blood Count 11.9 K/mm3 (4.5-10.0)
[2024-04-12 12:41] LABS: Alanine Aminotransferase 18 U/L (6-50); Alkaline Phosphatase 90 U/L (38-126); Anion Gap 9 mmol/L (4-12); Aspartate Amino Transferase 23 U/L (17-59); Bilirubin,Total 0.9 mg/dL (0.2-1.3); Blood Urea Nitrogen 10 mg/dL (9-20); Carbon Dioxide 28 mmol/L (22-30); Chloride 102 mmol/L (98-107); Estimated CRCL calculation 93 ml/min; Estimated Glomerular Filt Rate > 60; Glucose 173 mg/dL (65-110); Lipase 239 U/L (23-300); Potassium 3.5 mmol/L (3.4-5.0); Sodium 139 mmol/L (137-145)
[2024-04-12 12:55] LABS: Add Urine Microscopic? YES; Appearance Urine Cloudy (Clear); Bacteria Urine None Seen /hpf; Bilirubin Urine Negative (Negative); Blood Urine 3+ (Negative); Budding Yeast Urine Present /hpf; Color Urine Yellow (Yellow); Glucose Urine UA Negative (Negative); Ketones Urine 2+ mg/dL (Negative); Leukocyte Esterase Ur 1+ LEU/UL (Negative); Need Manual Microscopic Reviewed; Nitrate Urine Negative (Negative); Non Pathogenic Casts 0-2; Protein Urine 1+ mg/dL (Negative); RBC Urine >100 /hpf (0-2); Specific Grav Ur 1.024 (1.001-1.035); Squamous Epithelial Cell Urine Occasional /hpf (Few); pH Urine 5.5 (5.0-9.0)
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
[2024-04-12 13:37] LABS: Creatine Kinase 125 U/L (55-170)
[2024-04-12 14:04] LABS: Magnesium 2.1 mg/dL (1.6-2.3)
[2024-04-12] MEDS: ONDANSETRON INJ 4 MG/2 ML VIAL IV PUSH (14:13)
[2024-04-12] MEDS: FLUCONAZOLE 150 MG TABLET 300 MG PO (14:13)
--- NOTE | 2024-04-12 15:45 | PCCCNOTE ---
1545-Called to the pt's room to discuss Acute Rehab options. Pt was discharged from [facility] recently after utilizing his inpt rehab to home. [facility] was supposed to set up home health however they had not heard from them. Also noted [facility]rology had [facility] before he became ill but they weren't able to utilize it. Pt does not have resources to pay for [facility] at this time. Did discuss being discharged to home and following up with the care providers for the requested home health care in which they verbalized understanding.--maki.
[2024-04-12 16:15] VITALS: BP 146/84; PULSE 89; RESP 18; O2SAT 97
== END 2024-04-12 16:30 | disposition home or self-care (01) ==
PROVIDERS: Emergency Provider Student in an Organized Health Care Education/Training Program; PCP Family Medicine
DX: R53.1 Weakness (principal); R73.9 Hyperglycemia, unspecified; D72.829 Elevated white blood cell count, unspecified; R11.0 Nausea; B37.49 Other urogenital candidiasis; I25.10 Atherosclerotic heart disease of native coronary artery without angina pectoris; K21.9 Gastro-esophageal reflux disease without esophagitis; E78.00 Pure hypercholesterolemia, unspecified; N32.81 Overactive bladder; R73.03 Prediabetes; E53.8 Deficiency of other specified B group vitamins; Z79.82 Long term (current) use of aspirin; Z79.899 Other long term (current) drug therapy; Z79.4 Long term (current) use of insulin; I67.2 Cerebral atherosclerosis; G31.9 Degenerative disease of nervous system, unspecified
CPT/HCPCS: 36415; 70450; 71045; 80053; 81001; 82550; 83690; 83735; 85025; 87086; 96374; 99284; A9270; J2405

== ENCOUNTER 2024-04-14 15:30 | Observation (INO) | payer MEDICARE, SELFPAY ==
--- NOTE | ~2024-04-14 | XR_ITS ---
HISTORY: fall COMPARISON: Reference is made to a CT examination of the abdomen and pelvis dated 03/12/2024 TECHNIQUE: Single frontal view of the pelvis FINDINGS: Examination is somewhat limited as to the detection of fine bony detail secondary to overlying soft t issues (from the patient's pannus). No acute displaced fracture is appreciated. IMPRESSION: Limited evaluation secondary to overlying soft tissues without acute displaced fracture. Repeat evaluation may be performed with the pannus excluded from the image (if possible). Reviewed, dictated and finalized at location A. IRER ENGINE PRODUCTION
--- NOTE | ~2024-04-14 | XR_ITS ---
CHEST RADIOGRAPH CLINICAL HISTORY: Leukocytosis . COMPARISON: 04/12/2024 TECHNIQUE: Single portable view of the chest. FINDINGS Widening of the superior mediastinum, likely secondary to supine positioning. The remainder of the cardiomediastinal silhouette is otherwise unremarkable. Blunting of the left costophrenic sulcus suggesting a small left-sided pleural effusion. Increased interstitial markings are identified bilaterally, findings suggesting mild pulmonary vascul ar congestion. Visualized osseous structures and soft tissues are unremarkable. IMPRESSION: Small left-sided pleural effusion with mild pulmonary vascular congestion, as detailed above. Reviewed, dictated and finalized at location A. ANALYSIS SUPERVISOR IMPRESSION: Small left-sided pleural effusion with mild pulmonary vascular congestion, as d etailed above.
--- NOTE | ~2024-04-14 | XR_ITS ---
HISTORY: fall, back pain COMPARISON: Reference is made to CT examination of the abdomen and pelvis dated 03/12/2024 TECHNIQUE: 2 views of the lumbar spine were performed. FINDINGS: No acute compression fracture is identified. Degenerative disease is noted at multiple levels with osteophyte formation, disc space narrowing and significant facet arthropathy. Grade I retrolisthesis of L5 onto S1 is present, unchanged from 03/12/2024. IMPRESSION: Significant degenerative disease, without acute compression fracture, as detailed above. Reviewed, dictated and finalized at location A. LE INSTALLER IMPRESSION: Significant degenerative disease, without acute compression fractu re, as detailed above.
[2024-04-14 15:25] VITALS: PULSE 83; RESP 18; O2SAT 98
[2024-04-14 15:53] LABS: Basophils Absolute Auto 0.1 K/mm3 (0.0-0.1); Basophils Percent Auto 0.4 % (0.2-1.2); Eosinophils Absolute Auto 0.1 K/mm3 (0-0.3); Eosinophils Percent Auto 0.9 % (0-4.4); Hematocrit 43.5 % (42.0-52.0); Hemoglobin 14.4 g/dL (14.0-18.0); Immature Granulocyte Absolute 0.07 K/mm3 (0.00-0.031); Immature Granulocyte Percent A 0.5 % (0-0.5); Lymphocytes Absolute Auto 2.12 K/mm3 (0.9-3.2); Lymphocytes Percent Auto 14.9 % (18.3-44.2); Mean Corpuscular HGB Conc 33.1 g/dl (32-36); Mean Corpuscular Hemoglobin 28.5 pg (26-34); Mean Platelet Volume 10.7 fl (7.4-10.4); Monocytes Absolute Auto 0.9 K/mm3 (0.1-0.6); Monocytes Percent Auto 6.3 % (2.6-8.5); Neutrophils Absolute Auto 10.9 K/mm3 (1.3-6.7); Platelet Count Result 290 k/mm3 (150-375); Red Blood Count 5.06 M/mm3 (4.6-6.20); Red Cell Distribution Width 13.2 % (11.5-14.5); White Blood Count 14.2 K/mm3 (4.5-10.0)
[2024-04-14 16:02] LABS: Anion Gap 10 mmol/L (4-12); Blood Urea Nitrogen 14 mg/dL (9-20); Carbon Dioxide 29 mmol/L (22-30); Chloride 100 mmol/L (98-107); Estimated CRCL calculation 98 ml/min; Estimated Glomerular Filt Rate > 60; Glucose 167 mg/dL (65-110); Potassium 3.7 mmol/L (3.4-5.0); Sodium 139 mmol/L (137-145)
[2024-04-14 16:47] LABS: Creatine Kinase 89 U/L (55-170)
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
[2024-04-14 18:14] VITALS: BP 155/105; PULSE 78; RESP 17; O2SAT 98
[2024-04-14 18:26] VITALS: BP 141/82
[2024-04-14] MEDS: HYDROcodone/acetaminophen (*CRX) 5-325 MG TABLET 1 TAB PO (19:02)
--- NOTE | 2024-04-14 19:27 | ADMGEN ---
This patient, Tashi Esposito, was admitted to [facility] Surg Room 331-02. Patient/family oriented to hospital policies and general routines including ID bracelet, bed and alarms, visiting hours, pain management, procedures, bathroom and other care routines, personal items, smoking policy, room service/diet, and visiting hours. Information on how to activate the Rapid Response Team has been discussed. Patient/Family are encouraged to report perceived risks to care and to ask questions if they do not understand what they are told or what they should do.
[2024-04-14 19:53] VITALS: BMI 31.8
[2024-04-14 21:05] VITALS: BP 121/73; PULSE 73; RESP 18; TEMP 36.6; O2SAT 94
[2024-04-15 05:10] VITALS: BP 117/65; PULSE 70; RESP 16; TEMP 36; O2SAT 96
[2024-04-15 06:26] LABS: Basophils Absolute Auto 0.1 K/mm3 (0.0-0.1); Basophils Percent Auto 0.6 % (0.2-1.2); Eosinophils Absolute Auto 0.3 K/mm3 (0-0.3); Eosinophils Percent Auto 2.5 % (0-4.4); Hematocrit 40.8 % (42.0-52.0); Hemoglobin 13.3 g/dL (14.0-18.0); Immature Granulocyte Absolute 0.05 K/mm3 (0.00-0.031); Immature Granulocyte Percent A 0.4 % (0-0.5); Lymphocytes Absolute Auto 2.77 K/mm3 (0.9-3.2); Mean Corpuscular HGB Conc 32.6 g/dl (32-36); Mean Corpuscular Hemoglobin 28.6 pg (26-34); Mean Corpuscular Volume 87.7 fl (80-100); Mean Platelet Volume 11.2 fl (7.4-10.4); Monocytes Absolute Auto 0.8 K/mm3 (0.1-0.6); Monocytes Percent Auto 7.2 % (2.6-8.5); Neutrophils Absolute Auto 7.6 K/mm3 (1.3-6.7); Neutrophils Percent Auto 65.3 % (45.5-73.1); Platelet Count Result 278 k/mm3 (150-375); Red Blood Count 4.65 M/mm3 (4.6-6.20); Red Cell Distribution Width 13.5 % (11.5-14.5); White Blood Count 11.6 K/mm3 (4.5-10.0)
[2024-04-15 06:37] LABS: Anion Gap 9 mmol/L (4-12); Blood Urea Nitrogen 15 mg/dL (9-20); Calcium 8.8 mg/dL (8.4-10.2); Carbon Dioxide 28 mmol/L (22-30); Chloride 102 mmol/L (98-107); Estimated CRCL calculation 91 ml/min; Estimated Glomerular Filt Rate > 60; Glucose 117 mg/dL (65-110); Potassium 3.3 mmol/L (3.4-5.0); Sodium 139 mmol/L (137-145)
[2024-04-15 08:29] VITALS: O2SAT 96
[2024-04-15] MEDS: DOCUSATE SODIUM 100 MG CAPSULE PO (08:51)
[2024-04-15] MEDS: ENOXAPARIN 40 MG/0.4 ML SYRINGE SUB-Q (08:52)
--- NOTE | 2024-04-15 11:53 | P.PNIM_ITS ---
Progress Note: A&P Assessment and Plan (1) Muscular dystrophy: Onset Date: ~06/2022 Code(s): G71.00 - Muscular dystrophy, unspecified Status: Acute Assessment and Plan: * PT and OT evaluate and treat * Due to patient falling the day after leaving rehab he may need placement. * Patient states that he does not feel he is safe to go home, patient lives alone. (2) Frequent falls: Code(s): R29.6 - Repeated falls Status: Acute Assessment and Plan: * See above (3) Leukocytosis: Code(s): D72.829 - Elevated white blood cell count, unspecified Status: Inactive Assessment and Plan: * Chest x-ray showed Small left-sided pleural effusion with mild pulmonary vascu lar congestion, as detailed above. * Urine culture pending * WBC 11.9>14.2>11.6 * May be reactive. * Afebrile. (4) Cardiomyopathy: Code(s): I42.9 - Cardiomyopathy, unspecified Status: Acute Assessment and Plan: * Possible cardiomyopathy on chest x-ray * Echocardiogram showed: Summary 1. Complete two-dimensional, color flow and Doppler transthoracic echocardiogram is performed. 2. Left ventricular systolic function is normal, estimated at 55-60%. 3. The left ventricular diastolic function is abnormal. 4. There is trace tricuspid valve regurgitation. 5. No pulmonary hypertension, estimated pulmonary arterial systolic pressure is 18 mmHg. (5) Acute hypokalemia: Code(s): E87.6 - Hypokalemia Status: Acute Assessment and Plan: * Potassium 3.3. * Potassium 40 meq PO x1. * Monitor labs. (6) Back pain: Code(s): M54.9 - Dorsalgia, unspecified Status: Acute Assessment and Plan: * Acetaminophen 650 mg PO q 4 PRN. * Hydrocodone/Acetaminophen 5-325 mg 1 tab PO q 4 PRN. Subjective Date/time seen: 04/15/24 11:53 Interval history: Patient reports pain in back is a 3 , occasional, and aching. Patient denies nausea, vomiting, chest pain, palpitations, or shortness of breath. Review of Systems Review of Systems: All systems reviewed & are unremarkable except as noted in HPI and below Exam Const: General: no acute distress Eyes: Sclera: sclerae normal Resp: Effort & Inspection: normal respiratory effort Auscultation: clear to auscultation bilaterally Cardio: Rate: regular rate Rhythm: regular rhythm GI: GI Palp: Yes Soft to palpation Auscultation: normal bowel sounds Extrem: Other: weakness to bilateral lower extremities. Psych: Affect: normal affect Objective Data Vital Signs Vital Signs: Vital Signs - 24 hr 04/14/24 15:25 04/14/24 18:14 04/14/24 18:26 Temperature Pulse Rate 83 78 Respiratory Rate 18 17 Blood Pressure 155/105 H 141/82 H Pulse Oximetry 98 98 Oxygen Delivery Room Air 04/14/24 20:00 04/14/24 21:05 04/15/24 05:10 Temperature 97.8 F 96.8 F L Pulse Rate 73 70 Respiratory Rate 18 16 Blood Pressure 121/73 117/65 Pulse Oximetry 94 96 Oxygen Delivery Room Air 04/15/24 08:29 04/15/24 08:00 Temperature Pulse Rate Respiratory Rate Blood Pressure Pulse Oximetry 96 Oxygen Delivery Room Air Room Air Intake/Output Intake/Output: Intake & Output 04/12/24 04/13/24 04/14/24 04/15/24 23:59 23:59 23:59 23:59 Intake Total 240 Output Total 0 Balance 240 Meds/Results Medications: Active Medications Generic Name Dose Route Start Last Admin Trade Name Freq PRN Reason Stop Dose Admin Acetaminophen 650 mg 04/14/24 18:27 Acetaminophen 325 Mg Tablet PO Q4H PRN Mild Pain (1-3) or Fever Hydrocodone Bitart/Acetaminophen 1 tab 04/14/24 18:27 04/14/24 19:02 Hydrocodone/Acetaminophen (*Crx) 5-325 Mg Tablet PO 1 tab Q4H PRN Administration Moderate Pain (4-6) Docusate Sodium 100 mg 04/15/24 09:00 04/15/24 08:51 Docusate Sodium 100 Mg Capsule PO 100 mg DAILY PIETER Administration Enoxaparin Sodium 40 mg 04/15/24 09:00 04/15/24 08:52 Enoxaparin 40 Mg/0.4 Ml Syringe SUB-Q 40 mg DAILY PIETER Administration Radiology Results: ITS Impressions Pelvis X-Ray 04/14/24 16:04 IMPRESSION: Limited evaluation secondary to overlying soft tissues without acute displaced fracture. Repeat evaluation may be performed with the pannus excluded from the image (if possible). Lumbar Spine X-Ray 04/14/24 16:29 IMPRESSION: Significant degenerative disease, without acute compression fracture, as detailed above. Chest X-Ray 04/14/24 20:08 IMPRESSION: Small left-sided pleural effusion with mild pulmonary vascular congestion, as detailed above. Labs Labs: Laboratory Results - last 24 hr 04/14/24 04/14/24 04/15/24 15:46 15:47 05:16 WBC 14.2 H 11.6 H RBC 5.06 4.65 Hgb 14.4 13.3 L Hct 43.5 40.8 L MCV 86.0 87.7 MCH 28.5 28.6 MCHC 33.1 32.6 RDW 13.2 13.5 Plt Count 290 278 MPV 10.7 H 11.2 H Immature Gran % (Auto) 0.5 0.4 Neut % (Auto) 77.0 H 65.3 Lymph % (Auto) 14.9 L 24.0 [place] % (Auto) 6.3 7.2 Eos % (Auto) 0.9 2.5 Baso % (Auto) 0.4 0.6 Lymph # (Auto) 2.12 2.77 [place] # (Auto) 0.9 H 0.8 H Eos # (Auto) 0.1 0.3 Baso # (Auto) 0.1 0.1 Abs Immat Gran (auto) 0.07 H 0.05 H Absolute Neuts (auto) 10.9 H 7.6 H Absolute Nucleated RBC 0.000 0.000 Nucleated RBC % 0.0 0.0 Sodium 139 139 Potassium 3.7 3.3 L Chloride 100 102 Carbon Dioxide 29 28 Anion Gap 10 9 BUN 14 15 Creatinine 1.00 1.00 Estim Creat Clear Calc 98 91 Estimated GFR > 60 > 60 Glucose 167 H 117 H Calcium 9.0 8.8 Total Creatine Kinase 89 Quality VTE Prophylaxis VTE prophylaxis: mechanical ordered and pharmacologic ordered
[2024-04-15 14:00] VITALS: BP 114/64; PULSE 78; RESP 14; TEMP 36.6; O2SAT 96
[2024-04-15] MEDS: FLUCONAZOLE 150 MG TABLET PO (14:30)
[2024-04-15] MEDS: POTASSIUM CHLORIDE 20 MEQ ER TABLET 40 MEQ PO (14:30)
[2024-04-15 21:56] VITALS: O2SAT 96
[2024-04-15 22:00] VITALS: BP 137/84; PULSE 74; RESP 18; TEMP 36.8; O2SAT 96
[2024-04-16 06:00] VITALS: BP 168/91; PULSE 68; RESP 20; TEMP 36.6; O2SAT 100
[2024-04-16 06:20] LABS: Basophils Absolute Auto 0.1 K/mm3 (0.0-0.1); Basophils Percent Auto 0.6 % (0.2-1.2); Eosinophils Absolute Auto 0.3 K/mm3 (0-0.3); Hematocrit 44.4 % (42.0-52.0); Immature Granulocyte Absolute 0.06 K/mm3 (0.00-0.031); Immature Granulocyte Percent A 0.4 % (0-0.5); Lymphocytes Absolute Auto 3.12 K/mm3 (0.9-3.2); Lymphocytes Percent Auto 22.5 % (18.3-44.2); Mean Corpuscular HGB Conc 31.5 g/dl (32-36); Mean Corpuscular Hemoglobin 27.9 pg (26-34); Mean Corpuscular Volume 88.6 fl (80-100); Mean Platelet Volume 10.7 fl (7.4-10.4); Monocytes Absolute Auto 0.9 K/mm3 (0.1-0.6); Monocytes Percent Auto 6.6 % (2.6-8.5); Neutrophils Absolute Auto 9.4 K/mm3 (1.3-6.7); Neutrophils Percent Auto 67.9 % (45.5-73.1); Platelet Count Result 301 k/mm3 (150-375); Red Blood Count 5.01 M/mm3 (4.6-6.20); Red Cell Distribution Width 13.6 % (11.5-14.5); White Blood Count 13.9 K/mm3 (4.5-10.0)
[2024-04-16 06:38] LABS: Alanine Aminotransferase 20 U/L (6-50); Albumin Level 3.9 g/dL (3.5-5.1); Alkaline Phosphatase 82 U/L (38-126); Anion Gap 6 mmol/L (4-12); Aspartate Amino Transferase 23 U/L (17-59); Bilirubin,Total 0.6 mg/dL (0.2-1.3); Blood Urea Nitrogen 15 mg/dL (9-20); Calcium 9.2 mg/dL (8.4-10.2); Carbon Dioxide 31 mmol/L (22-30); Chloride 103 mmol/L (98-107); Estimated CRCL calculation 91 ml/min; Estimated Glomerular Filt Rate > 60; Glucose 115 mg/dL (65-110); Potassium 3.7 mmol/L (3.4-5.0); Sodium 140 mmol/L (137-145)
[2024-04-16] MEDS: DOCUSATE SODIUM 100 MG CAPSULE PO (09:19)
[2024-04-16] MEDS: ENOXAPARIN 40 MG/0.4 ML SYRINGE SUB-Q (09:19)
--- NOTE | 2024-04-16 11:14 | P.PNIM_ITS ---
Progress Note: A&P Assessment and Plan (1) Muscular dystrophy: Onset Date: ~06/2022 Code(s): G71.00 - Muscular dystrophy, unspecified Status: Acute Assessment and Plan: * PT and OT evaluate and treat * Due to patient falling the day after leaving rehab he may need placement. * Patient states that he does not feel he is safe to go home, patient lives alone. * Awaiting approval for [facility] for rehab. (2) Frequent falls: Code(s): R29.6 - Repeated falls Status: Acute Assessment and Plan: * See above (3) Leukocytosis: Code(s): D72.829 - Elevated white blood cell count, unspecified Status: Inactive Assessment and Plan: * Chest x-ray showed Small left-sided pleural effusion with mild pulmonary vascular congestion, as detailed above. * Urine culture pending * WBC 11.9>14.2>11.6>13.9 * May be reactive. * Afebrile. (4) Cardiomyopathy: Code(s): I42.9 - Cardiomyopathy, unspecified Status: Acute Assessment and Plan: * Possible cardiomyopathy on chest x-ray * Echocardiogram showed: Summary 1. Complete two-dimensional, color flow and Doppler transthoracic echocardiogram is performed. 2. Left ventricular systolic function is normal, estimated at 55-60%. 3. The left ventricular diastolic function is abnormal. 4. There is trace tricuspid valve regurgitation. 5. No pulmonary hypertension, estimated pulmonary arterial systolic pressure is 18 mmHg. (5) Acute hypokalemia: Code(s): E87.6 - Hypokalemia Status: Acute Assessment and Plan: * Potassium improved, 3.7 today. * Monitor labs. (6) Back pain: Code(s): M54.9 - Dorsalgia, unspecified Status: Acute Assessment and Plan: * Acetaminophen 650 mg PO q 4 PRN. * Hydrocodone/Acetaminophen 5-325 mg 1 tab PO q 4 PRN. Subjective Date/time seen: 04/16/24 11:14 Interval history: Patient denies chest pain, palpitations, headache, dizziness, nausea, or vomiting. Patient reports that he would like to be a full code when discussing code status. Patient reports having a bowel movement today. Review of Systems Review of Systems: All systems reviewed & are unremarkable except as noted in HPI and below Exam Const: General: comfortable and no acute distress Eyes: Sclera: sclerae normal Resp: Effort & Inspection: normal respiratory effort Auscultation: clear to auscultation bilaterally Cardio: Rate: regular rate Rhythm: regular rhythm GI: GI Palp: Yes Soft to palpation Auscultation: normal bowel sounds Neuro: Speech: normal speech Extrem: Other: weakness to bilateral lower extremities. Psych: Affect: normal affect Objective Data Vital Signs Vital Signs: Vital Signs - 24 hr 04/15/24 14:39 04/15/24 14:00 04/15/24 22:00 Temperature 97.9 F 98.3 F Pulse Rate 78 74 Respiratory Rate 14 18 Blood Pressure 114/64 137/84 Pulse Oximetry 96 96 Oxygen Delivery Room Air 04/15/24 20:00 04/15/24 21:56 04/16/24 06:00 Temperature 97.9 F Pulse Rate 68 Respiratory Rate 20 Blood Pressure 168/91 H Pulse Oximetry 96 100 Oxygen Delivery Room Air Room Air Intake/Output Intake/Output: Intake & Output 04/13/24 04/14/24 04/15/24 04/16/24 23:59 23:59 23:59 23:59 Intake Total 960 218 Output Total 0 Balance 960 218 Meds/Results Medications: Active Medications Generic Name Dose Route Start Last Admin Trade Name Freq PRN Reason Stop Dose Admin Acetaminophen 650 mg 04/14/24 18:27 Acetaminophen 325 Mg Tablet PO Q4H PRN Mild Pain (1-3) or Fever Hydrocodone Bitart/Acetaminophen 1 tab 04/14/24 18:27 04/14/24 19:02 Hydrocodone/Acetaminophen (*Crx) 5-325 Mg Tablet PO 1 tab Q4H PRN Administration Moderate Pain (4-6) Docusate Sodium 100 mg 04/15/24 09:00 04/16/24 09:19 Docusate Sodium 100 Mg Capsule PO 100 mg DAILY PIETER Administration Enoxaparin Sodium 40 mg 04/15/24 09:00 04/16/24 09:19 Enoxaparin 40 Mg/0.4 Ml Syringe SUB-Q 40 mg DAILY PIETER Administration Fluconazole 150 mg 04/15/24 13:00 04/15/24 14:30 Fluconazole 150 Mg Tablet PO 04/18/24 22:00 150 mg Q3D PIETER Administration Radiology Results: ITS Impressions Pelvis X-Ray 04/14/24 16:04 IMPRESSION: Limited evaluation secondary to overlying soft tissues without acute displaced fracture. Repeat evaluation may be performed with the pannus excluded from the image (if possible). Lumbar Spine X-Ray 04/14/24 16:29 IMPRESSION: Significant degenerative disease, without acute compression fracture, as detailed above. Chest X-Ray 04/14/24 20:08 IMPRESSION: Small left-sided pleural effusion with mild pulmonary vascular congestion, as detailed above. Labs Labs: Laboratory Results - last 24 hr 04/16/24 05:53 WBC 13.9 H RBC 5.01 Hgb 14.0 Hct 44.4 MCV 88.6 MCH 27.9 MCHC 31.5 L RDW 13.6 Plt Count 301 MPV 10.7 H Immature Gran % (Auto) 0.4 Neut % (Auto) 67.9 Lymph % (Auto) 22.5 [place] % (Auto) 6.6 Eos % (Auto) 2.0 Baso % (Auto) 0.6 Lymph # (Auto) 3.12 [place] # (Auto) 0.9 H Eos # (Auto) 0.3 Baso # (Auto) 0.1 Abs Immat Gran (auto) 0.06 H Absolute Neuts (auto) 9.4 H Absolute Nucleated RBC 0.000 Nucleated RBC % 0.0 Sodium 140 Potassium 3.7 Chloride 103 Carbon Dioxide 31 H Anion Gap 6 BUN 15 Creatinine 1.00 Estim Creat Clear Calc 91 Estimated GFR > 60 Glucose 115 H Calcium 9.2 Total Bilirubin 0.6 AST 23 ALT 20 Alkaline Phosphatase 82 Total Protein 7.0 Albumin 3.9 Quality VTE Prophylaxis VTE prophylaxis: mechanical ordered and pharmacologic ordered
[2024-04-16 14:00] VITALS: BP 134/87; PULSE 74; RESP 14; TEMP 36.2; O2SAT 98
[2024-04-16 20:55] VITALS: BP 125/75; PULSE 68; RESP 20; TEMP 35.9; O2SAT 97
[2024-04-17 04:45] VITALS: BP 152/88; PULSE 65; RESP 18; TEMP 35.7; O2SAT 100
[2024-04-17 07:07] LABS: Alanine Aminotransferase 20 U/L (6-50); Albumin Level 3.7 g/dL (3.5-5.1); Alkaline Phosphatase 75 U/L (38-126); Anion Gap 5 mmol/L (4-12); Aspartate Amino Transferase 23 U/L (17-59); Bilirubin,Total 0.4 mg/dL (0.2-1.3); Blood Urea Nitrogen 12 mg/dL (9-20); Carbon Dioxide 31 mmol/L (22-30); Chloride 104 mmol/L (98-107); Estimated CRCL calculation 91 ml/min; Estimated Glomerular Filt Rate > 60; Glucose 125 mg/dL (65-110); Potassium 4.2 mmol/L (3.4-5.0); Sodium 140 mmol/L (137-145)
[2024-04-17 07:10] LABS: Basophils Percent Auto 0.5 % (0.2-1.2); Eosinophils Absolute Auto 0.3 K/mm3 (0-0.3); Eosinophils Percent Auto 4.1 % (0-4.4); Hemoglobin 13.5 g/dL (14.0-18.0); Immature Granulocyte Absolute 0.04 K/mm3 (0.00-0.031); Immature Granulocyte Percent A 0.5 % (0-0.5); Lymphocytes Percent Auto 24.8 % (18.3-44.2); Mean Corpuscular HGB Conc 31.4 g/dl (32-36); Mean Platelet Volume 10.5 fl (7.4-10.4); Monocytes Absolute Auto 0.6 K/mm3 (0.1-0.6); Monocytes Percent Auto 6.8 % (2.6-8.5); Neutrophils Absolute Auto 5.1 K/mm3 (1.3-6.7); Neutrophils Percent Auto 63.3 % (45.5-73.1); Platelet Count Result 299 k/mm3 (150-375); Red Blood Count 4.83 M/mm3 (4.6-6.20); Red Cell Distribution Width 13.4 % (11.5-14.5); White Blood Count 8.1 K/mm3 (4.5-10.0)
[2024-04-17] MEDS: DOCUSATE SODIUM 100 MG CAPSULE PO (09:21)
[2024-04-17] MEDS: ENOXAPARIN 40 MG/0.4 ML SYRINGE SUB-Q (09:21)
--- NOTE | 2024-04-17 12:47 | P.DS_ITS ---
DS: Admitting Diagnosis Discharge Date 04/17/2024 Admitting Diagnosis Generalized Muscle Weakness DS: Discharge Diagnosis Discharge Diagnosis (1) Generalized weakness: Code(s): R53.1 - Weakness Status: Acute Assessment and Plan: - Likely related to below vs deconditioning vs other. - Treated with PT/OT inpatient. - Patient scheduled for rehab placement. - Continue fall precautions. (2) Muscular dystrophy: Onset Date: ~06/2022 Code(s): G71.00 - Muscular dystrophy, unspecified Status: Acute Assessment and Plan: * Continue PT and OT treatment. * Scheduled for rehab placement. * Continue fall precautions. (3) Frequent falls: Code(s): R29.6 - Repeated falls Status: Acute Assessment and Plan: * Likely related to # 1 and # 2 above. * Continue fall precautions. * Scheduled for transfer to rehab today. (4) Leukocytosis: Code(s): D72.829 - Elevated white blood cell count, unspecified Status: Inactive Assessment and Plan: * Chest x-ray showed Small left-sided pleural effusion with mild pulmonary vascular congestion, as detailed above. * Urine culture growing gram negative bacilli. * WBC trended down and currently wnl. * Patient on Ceftriaxone. * We'll change abx to PO Cipro. * Continue to follow culture and sensitivities. (5) Cardiomyopathy: Code(s): I42.9 - Cardiomyopathy, unspecified Status: Acute Assessment and Plan: * Possible cardiomyopathy on chest x-ray * Echocardiogram showed: Summary 1. Complete two-dimensional, color flow and Doppler transthoracic echocardiogram is performed. 2. Left ventricular systolic function is normal, estimated at 55-60%. 3. The left ventricular diastolic function is abnormal. 4. There is trace tricuspid valve regurgitation. 5. No pulmonary hypertension, estimated pulmonary arterial systolic pressure is 18 mmHg. - Patient hemodynamically stable. - Resume home PO lasix prior to discharge. (6) Acute hypokalemia: Code(s): E87.6 - Hypokalemia Status: Acute Assessment and Plan: * Resolved. (7) Back pain: Code(s): M54.9 - Dorsalgia, unspecified Status: Acute Assessment and Plan: * Acetaminophen 650 mg PO q 4 PRN. * Hydrocodone/Acetaminophen 5-325 mg 1 tab PO q 4 PRN. (8) Acute UTI: Code(s): N39.0 - Urinary tract infection, site not specified Status: Acute Plan Discharge to Rehab. DS: Summary Hospital Course Reason for hospitalization: Generalized Muscle Weakness Hospital Course: Patient was admitted to the ER from home with reports of recurrent falls at home. Patient was recently hospitalized for sepsis UTI and was discharged on 03/18/2024 to [facility] for rehab. He was discharged the day before he presented to the hospital after falling at home and being unable to get himself up. He was evaluated at the ER and had negative imaging including CT head, XRL/S spine, XR Pelvis. Pt had EKG done that showed SR, and TTE also done showed EF 55-60%. Patient's labs were fairly unremarkable except for elevated WBC's and UA suspicious for possible UTI. Urine and blood cultures were collected and pt admitted for further work-up. Patient's urine has grown gram negative bacilli, with blood cultures NGTD. Pt has been treated with Ceftriaxone that will be changed to PO Cipro prior to discharge, as patient's prior urine cultures grew pansensitive Citrobacter Koseri. Patient worked with PT/OT and rehab placement has been recommended where patient is being transferred for conditioning. No acute distress noted or reported prior to discharge and patient is medically stable for discharge. Status at Discharge Functional status at discharge: uses cane/walker Overall status at discharge: patient is progressing back to baseline Time Spent with Patient Time attestation: Total time spent providing and/or coordinating discharge services: Time spent: Greater than 30 minutes Exam Const: Other: HEENT: Atraumatic, PERRL, non-icteric, EOM, moist mucus membranes. Neck: Supple. Lungs: Clear bilaterally. Heart: RRR, no murmurs. Abdomen: Soft, non-tender, non-distended, obese, +ve bowel sounds X4 quadrants. Extremities: Warm and dry. No edema. Skin: Warm and dry with no lesions. Neuro: Fairly well oriented, no focal neuro deficits noted. Psych: Pleasant and co-operative. DS: Data Data Completed and Pending Labs on day of discharge: Labs from last 24 hours 04/17/24 06:50 WBC 8.1 RBC 4.83 Hgb 13.5 L Hct 43.0 MCV 89.0 MCH 28.0 MCHC 31.4 L RDW 13.4 Plt Count 299 MPV 10.5 H Immature Gran % (Auto) 0.5 Neut % (Auto) 63.3 Lymph % (Auto) 24.8 [place] % (Auto) 6.8 Eos % (Auto) 4.1 Baso % (Auto) 0.5 Lymph # (Auto) 2.00 [place] # (Auto) 0.6 Eos # (Auto) 0.3 Baso # (Auto) 0.0 Abs Immat Gran (auto) 0.04 H Absolute Neuts (auto) 5.1 Absolute Nucleated RBC 0.000 Nucleated RBC % 0.0 Sodium 140 Potassium 4.2 Chloride 104 Carbon Dioxide 31 H Anion Gap 5 BUN 12 Creatinine 1.00 Estim Creat Clear Calc 91 Estimated GFR > 60 Glucose 125 H Calcium 9.0 Total Bilirubin 0.4 AST 23 ALT 20 Alkaline Phosphatase 75 Total Protein 7.0 Albumin 3.7 Preliminary micro results at discharge 04/15/24 09:01 Urine Culture - Preliminary Clean Catch Midstream Gram negative bacilli isolated Discharge Plan Discharge Attending physician on discharge: Jean Pierre Riggs Discharging Clinician: Evelyn Woods Anticipated Discharge Date/Time: 04/17/24 13:38 Patient Disposition: Inpatient Rehab Facility Activity: as tolerated Diet: heart healthy Patient Instructions: Pain Management (DC) Stand Alone Forms: General Discharge Information Follow-up/Referrals: Chencho Sosa MD [Primary Care Provider] - 4 Weeks Discharge Medications: New fluconazole 150 mg Tablet 150 mg PO Q3D Qty: 2 0RF docusate sodium 100 mg Capsule 100 mg PO DAILY Qty: 10 0RF Continued aspirin 81 mg tablet,chewable 1 tablet PO DAILY metoprolol succinate 25 mg tablet extended release 24 hr 25 mg PO DAILY rosuvastatin 40 mg tablet 40 mg PO DAILY mirabegron [Myrbetriq] 25 mg tablet extended release 24 hr 25 mg PO DAILY isosorbide mononitrate 30 mg tablet extended release 24 hr 15 mg PO DAILY Qty: 45 0RF oxybutynin chloride 15 mg tablet extended release 24hr 15 mg PO DAILY Qty: 1 0RF polyethylene glycol 3350 17 gram/dose Powder 17 g PO DAILY PRN (Reason: Constipation) biotin tablet 10 mg PO DAILY coQ10 (ubiquinol) tablet 100 mg PO DAILY omeprazole 20 mg capsule,delayed release(DR/EC) 20 mg PO DAILY Rx Instructions: TAKE 1 CAPSULE BY MOUTH DAILY cyanocobalamin (vitamin B-12) 1,000 mcg/mL solution 1,000 mcg subcut MONTHLY Qty: 10 1RF furosemide [Lasix] 20 mg tablet 20 mg PO QAM Qty: 30 5RF Date of admission: 04/14/24 17:01 Primary Care Provider: Chencho Sosa Admitting Provider: Aguila Brownlee Attending physician on admission: Aguila Brownlee Condition: Stable Quality If No VTE Prophylaxis Answer both mechanical and pharmacologic: Reason no mechanical VTE proph: low risk/not indicated Reason no pharmacologic proph: low risk/not indicated Hospitalist MIPS Heart Failure (Exclusion) Patient has history of Heart Transplant or Left Ventricular Assistive Device?: No IF YES, STOP HERE Heart Failure (Qualifier) Patient has current or prior documentation of LVEF less than or equal to 40%, or mod/servere depressed LVSF?: No IF NO, STOP HERE If Medications not prescribed/taking Reason patient not prescribed/taking MADHU or ARB: Patient reasons: pt declined or other pt reason (Patient declined) Reason patient not prescribed/taking bisoprolol, carvedilol, or sustained realease metoprolol succinate: Medical reasons: allergy, intolerance, contraindication or other (Patient already taking metoprolol)
[2024-04-17 14:00] VITALS: BP 140/80; PULSE 86; RESP 20; TEMP 36.6; O2SAT 98
--- NOTE | 2024-04-17 14:08 | PC.NURSE ---
This RN, Kori Gonzalez, attempted to call Aleksandra Rae @ [phone] 04/17/24 to give report for discharge with no answer from facility; left brief voice message. Will make another attempt in 15 minutes.
--- NOTE | 2024-04-17 14:30 | PC.NURSE ---
report given to Aleksandra receiving nurse, Laurita SHORT @ [phone] 04/17/24.
== END 2024-04-17 15:20 ==
LOC: ANHED 17:54 → ANH3MEDSUR 20:06
PROVIDERS: Nurse Practitioner Family; Nurse Practitioner Gerontology; Admitting Provider Internal Medicine; Emergency Provider Emergency Medicine; PCP Family Medicine; Visit Provider Nurse Practitioner Adult Health
DX: R53.1 Weakness (principal); M54.9 Dorsalgia, unspecified; R29.6 Repeated falls; G71.00 Muscular dystrophy, unspecified; D72.829 Elevated white blood cell count, unspecified; I42.9 Cardiomyopathy, unspecified; E87.6 Hypokalemia; N39.0 Urinary tract infection, site not specified; I25.10 Atherosclerotic heart disease of native coronary artery without angina pectoris; R73.03 Prediabetes; K21.9 Gastro-esophageal reflux disease without esophagitis; E78.00 Pure hypercholesterolemia, unspecified; N32.81 Overactive bladder; Z79.82 Long term (current) use of aspirin; Z79.899 Other long term (current) drug therapy
CPT/HCPCS: 36415; 71045; 72100; 72170; 80048; 80053; 82550; 85025; 87077; 87086; 87186; 96365; 96372; 96376; 97110; 97116; 97161; 97165; 97530; 97535; 99285; A9270; G0378; J0696; J1650

== ENCOUNTER 2024-07-26 16:14 | Inpatient (IN) | payer MEDICARE, SELFPAY ==
[2024-07-26] VITALS (9 sets, daily range): BP systolic 114–149; BP diastolic 74–85; PULSE 79–90; RESP 14–20; TEMP 38.3; O2SAT 92–97
--- NOTE | ~2024-07-26 | CT_ITS ---
EXAMINATION: CT brain wo con DATE: 07/28/2024 14:24 INDICATION: Altered mental status. TECHNIQUE: Computed tomography (CT) of the head was performed without intravenous contrast. The mA wa s adjusted according to patient size. Iterative reconstruction technique was employed. The dose-lengt h product was 681.00 mGy-cm. COMPARISON: Head CT 04/12/2024, brain MRI 07/08/2021 FINDINGS: There are scattered areas of low attenuation in the cerebral white matter. There is a promi nent perivascular space in the right basal ganglia. There is no intracranial hemorrhage, acute infarc tion, or abnormal intracranial mass lesion. The ventricles are normal in size. The orbits are normal. There is mucosal thickening in the paranasal sinuses. The mastoid air cells are normal. IMPRESSION: 1. Stable extensive nonspecific cerebral white matter disease, which likely represents chronic small vessel ischemic disease. Reviewed, dictated and finalized at location A. ITE INSPECTOR IMPRESSION: 1. Stable extensive nonspecific cerebral white matter disease, which likely rep resents chronic small vessel ischemic disease.
--- NOTE | ~2024-07-26 | XR_ITS ---
EXAMINATION: XR chest 1V DATE: 07/26/2024 20:09 INDICATION: Cough and fever TECHNIQUE: frontal view of the chest was obtained. COMPARISON: Chest radiograph dated 04/14/2024 FINDINGS: Small lung volumes. No focal airspace opacities, pulmonary edema, pleural effusion or pneumothorax. H eart size is normal conifer AP technique and the prominent left paracardial fat pad. Old healed fract ure of the right clavicle and a few right-sided ribs. IMPRESSION: 1. Small lung volumes with no evident acute cardiopulmonary disease. Reviewed, dictated and finalized at location A. OR JAVA WEB DEVELOPER
--- OUTSIDE RECORDS SUMMARY | 2024-07-26 16:17 | XMS_ITS | Patient Health Summary ---
Author Organization [facility] Address [address] [place] [address] Care Team Providers Care Paper Folder Name Role Phone Chencho Sosa MD Primary Care Provider [phone] [facility] from [facility],non-owned Affiliates and Associated Physician Practices is amultiple site organization consisting of ambulatory clinics and hospital sitesin [place], [place], [place] and [place]. This disclosure is being madepursuant to the Care Everywhere program and may not contain all information available regarding this patient. Last updated 18.[facility] [employer] Allergies No known active allergies Medications * Be aware that medications may not be up to date on this document. Alwaysverify current medications with the patient. * atorvastatin (LIPITOR) 20 MG tablet Take 20 mg by mouth at bedtime * metoprolol tartrate (LOPRESSOR) 25 MG tablet Take 25 mg by mouth once daily * aspirin EC (ECOTRIN) 81 MG tablet Take 81 mg by mouth once daily * isosorbide mononitrate CR 24hr (IMDUR) 30 MG tablet Take 30 mg by mouth once daily * acetaminophen (TYLENOL) 325 MG tablet(Started 01/08/2019) Take 2 tablets by mouth every 6 hours Maximum allowable Acetaminophen amount = 4 Grams (4000 mg) / 24 hours. Active Problems Problem Noted Date Diagnosed Date Lumbar transverse process fracture 01/05/2019 Fracture of spinous process of lumbar vertebra 0 01/05/2019 Clavicle fracture 01/05/2019 Rib fracture 01/05/2019 Eyebrow laceration 01/05/2019 Impaired mobility and activities of daily living 01/05/2019 Trauma 01/03/2019 Fall 01/03/2019 Closed fracture of one rib of right side 019 Social History Tobacco Use Types Packs/Day Years Used Date Smoking Tobacco: Never Smokeless Tobacco: Never Alcohol Use Standard Drinks/Week Comments Yes 0 (1 standard drink = 0.6 oz pur e alcohol) Sex and Gender Information Value Date Recorded Sex Assigned at Not on file Gender Identity Not on file Sexual Orientation Not on file Last Filed Vital Signs Vital Sign Reading Time Taken Comments Blood Pressure 125/64 01/08/2019 11:42 AM CDT Pulse 117 01/08/2019 11:42 AM CDT Temperature 36.8 C (98.3 F) 01/08/2019 11:42 AM CDT Respiratory Rate 18 01/08/2019 11:42 AM CDT Oxygen Saturation 100% 01/08/2019 11:42 AM CDT Inhaled Oxygen Concentration - - Weight 108 kg (238 lb) 05/25/2019 8:52 AM [employer]OR RECRUITMENT MANAGER Height 177.8 cm (5' 10 ) 05/25/2019 8:52 AM [employer]OR RECRUITMENT MANAGER Body Mass Index 34.15 05/25/2019 8:52 AM DONOR RECRUITMENT MANAGER Procedures * XR CLAVICLE RIGHT 2VW(Performed 05/25/2019) Performed for Closed displaced fracture of right clavicle with routine healing, unspecified part ofclavicle, subsequent encounter * CARDIAC EKG ORDER(Performed 05/18/2019) * XR CLAVICLE RIGHT 2VW(Performed 04/06/2019) Performed for Closed displaced fracture of right clavicle with routine healing, unspecified part ofclavicle, subsequent encounter * XR CLAVICLE RIGHT 2VW(Performed 03/23/2019) Performed for Closed displaced fracture of right clavicle with routine healing, unspecified part ofclavicle, subsequent encounter * XR THORACIC SPINE 2VW(Performed 02/23/2019) Performed for Fracture follow-up * XR LUMBAR SPINE 2 OR 3VW(Performed 02/23/2019) Performed for Fracture follow-up * XR CLAVICLE RIGHT 2VW(Performed 02/23/2019) Performed for Closed displaced fracture of right clavicle with routine healing, unspecified part ofclavicle, subsequent encounter * XR CLAVICLE RIGHT 2VW(Performed 02/02/2019) Performed for Closed displaced fracture of right clavicle with routine healing, unspecified part ofclavicle, subsequent encounter * CK BLOOD(Performed 01/05/2019) * PHOSPHORUS BLOOD(Performed 01/05/2019) * MAGNESIUM BLOOD(Performed 01/05/2019) * CBC W AUTO DIFFERENTIAL(Performed 01/05/2019) * BASIC METABOLIC PANEL (CALCIUM TOTAL)(Performed 01/05/2019) * CK BLOOD(Performed 01/04/2019) * PHOSPHORUS BLOOD(Performed 01/04/2019) * MAGNESIUM BLOOD(Performed 01/04/2019) * CBC W AUTO DIFFERENTIAL(Performed 01/04/2019) * BASIC METABOLIC PANEL (CALCIUM TOTAL)(Performed 01/04/2019) * XR CLAVICLE BILAT 2VW(Performed 01/04/2019) Performed for Closed nondisplaced fracture of clavicle, unspecified laterality, unspecified part ofclavicle, initial encounter * XR THORACIC SPINE 2VW(Performed 01/04/2019) Performed for Closed fracture of one rib of right side, initial encounter, Closed fracture of lumbar vertebra, unspecified fracture morphology, unspecified lumbar vertebral level, initial encounter ([facility]) * XR LUMBAR SPINE 2 OR 3VW(Performed 01/04/2019) Performed for Closed fracture of one rib of right side, initial encounter, Closed fracture of lumbar vertebra, unspecified fracture morphology, unspecified lumbar vertebral level, initial encounter ([facility]) * CT CHEST W CONTRAST(Performed 01/03/2019) Performed for Trauma * URINE DRUG SCREEN IMMUNOASSAY(Performed 01/03/2019) * HIV-1 HIV-2 ANTIGEN/ANTIBODY(Performed 01/03/2019) * HEPATITIS C AB SCREEN RFLX NAAT QUANT(Performed 01/03/2019) * TYPE + SCREEN PANEL(Performed 01/03/2019) * EKG 12-LEAD(Performed 01/03/2019) Performed for Trauma * CK BLOOD(Performed 01/03/2019) * PTT [facility](Performed 01/03/2019) * PT-INR [facility](Performed 01/03/2019) * CBC W AUTO DIFFERENTIAL(Performed 01/03/2019) * BASIC METABOLIC PANEL (CALCIUM TOTAL)(Performed 01/03/2019) * ALCOHOL ETHYL BLOOD(Performed 01/03/2019) * XR CHEST 1VW PORTABLE(Performed 01/03/2019) Performed for Trauma Results * XR CLAVICLE RIGHT 2VW (05/25/2019 8:50 AM DONOR RECRUITMENT MANAGER) Only the most recent of5 resultswithin the time period is included. Anatomical Region Laterality Modality Upper Extremity, Chest Radiograp hic Imaging 05/25/2019 12:4 1 PM [employer]OR RECRUITMENT MANAGER Impressions 05/25/2019 12:42 PM DONOR RECRUITMENT MANAGER IMPRESSION: Displaced clavicle fracture, healing and unchanged in alignment. Healing rib fractures. This report was electronically signed by RYAN HUTCHISON MD on 05/25/2019 12:42 PM . Narrative 05/25/2019 12:42 PM DONOR RECRUITMENT MANAGER Exam: XR CLAVICLE RIGHT 2VW History: S42.001D: Closed displaced fracture of right clavicle with routine healing, unspecified part of clavicle, subsequent encounter Comparison: 04/06/2019 Findings: A displaced fracture at the medial to mid aspect of the clavicle is not changed in alignment. Callus is progressed. Healing rib fractures are noted. Procedure Note Ryan Hutchison MD - 05/25/2019 Exam: XR CLAVICLE RIGHT 2VW History: S42.001D: Closed displaced fracture of right clavicle with routine healing, unspecified part of clavicle, subsequent encounter Comparison: 04/06/2019 Findings: A displaced fracture at the medial to mid aspect of the clavicle is not changed in alignment. Callus is progressed. Healing rib fractures are noted. IMPRESSION: Displaced clavicle fracture, healing and unchanged in alignment. Healing rib fractures. This report was electronically signed by RYAN HUTCHISON MD on 05/25/2019 12:42 PM . Rashi Bearden MD DIAGNOSTIC IMAGING ORDERABLES * CARDIAC EKG ORDER (05/18/2019 12:06 PM DONOR RECRUITMENT MANAGER) Narrative 05/18/2019 12:06 PM DONOR RECRUITMENT MANAGER Ordered by an unspecified provider. Scanned Document CARDIAC SERVICES ORD ERABLES * XR THORACIC SPINE 2VW (02/23/2019 11:23 AM CDT) Only the most recent of2 resultswithin the time period is included. Anatomical Region Laterality Modality Spine Radiographic Christina ging 02/23/2019 1:34 PM CDT Impressions 02/23/2019 3:12 PM CDT IMPRESSION: No acute compression deformity or subluxation. Dictated by Roman Alston MD (Resident). Dr. Rhonda Matthews M.D. have personally reviewed and interpreted this examination/study. This report was electronically signed by Rhonda LANDRUM M.D. on 02/23/2019 3:12 PM . Narrative 02/23/2019 3:12 PM CDT EXAMINATION: XR THORACIC SPINE 2VW HISTORY: fracture follow up COMPARISON: Comparison is made with a study from 01/04/2019 and 01/03/2019 FINDINGS: The vertebral alignment is normal. The vertebral body heights are normal without evidence of acute compression deformity. The intervertebral disc spaces are preserved. A right clavicle fracture is partially imaged. Procedure Note Anastasiia Landrum MD - 02/23/2019 EXAMINATION: XR THORACIC SPINE 2VW HISTORY: fracture follow up COMPARISON: Comparison is made with a study from 01/04/2019 and 01/03/2019 FINDINGS: The vertebral alignment is normal. The vertebral body heights are normal without evidence of acute compression deformity. The intervertebral disc spaces are preserved. A right clavicle fracture is partially imaged. IMPRESSION: No acute compression deformity or subluxation. Dictated by Roman Alston MD (Resident). Dr. Rhonda Matthews M.D. have personally reviewed and interpretedthis examination/study. This report was electronically signed by Rhonda LANDRUM M.D. on 02/23/2019 3:12 PM . Darya Ruiz PA-C DIAGNOSTIC IMAG ING ORDERABLES * XR LUMBAR SPINE 2 OR 3VW (02/23/2019 11:23 AM CDT) Only the most recent of2 resultswithin the time period is included. Anatomical Region Laterality Modality Spine Radiographic Christina ging 02/23/2019 11:4 3 AM CDT Impressions 02/23/2019 3:13 PM CDT IMPRESSION: Normal vertebral body heights without evidence of subluxation. Multiple previous lumbar spine fractures are not well seen, and better evaluated on the prior CT. Dictated by Roman Alston MD (Resident). Dr. Rhonda Matthews M.D. have personally reviewed and interpreted this examination/study. This report was electronically signed by Rhonda LANDRUM M.D. on 02/23/2019 3:13 PM . Narrative 02/23/2019 3:13 PM CDT EXAMINATION: XR LUMBAR SPINE 2 OR 3VW HISTORY: fracture follow up COMPARISON: Comparison is made with a study from 12/27/2018 and 01/03/2019 FINDINGS: The vertebral alignment is normal. The vertebral body heights are normal without evidence of acute compression deformity. A fracture of the left aspect of the L1 vertebral body extending through the left pedicle to the left transverse process as well as the right L1 transverse process fracture are not well seen, and better evaluated on prior imaging. A displaced left L3 transverse process fracture does not appear significantly changed in alignment. The L1 and L2 spinous process fractures are not well seen. There is multilevel degenerative disc disease. The sacroiliac joints are intact. Procedure Note Anastasiia Landrum MD - 02/23/2019 EXAMINATION: XR LUMBAR SPINE 2 OR 3VW HISTORY: fracture follow up COMPARISON: Comparison is made with a study from 12/27/2018 and 01/03/2019 FINDINGS: The vertebral alignment is normal. The vertebral body heights are normal without evidence of acute compression deformity. A fracture of the left aspect of the L1 vertebral body extending through the left pedicle tothe left transverse process as well as the right L1 transverse process fracture are not well seen, and better evaluated on prior imaging. A displaced left L3 transverse process fracture does not appear significantly changed in alignment. The L1 and L2 spinous process fractures are not well seen. There is multilevel degenerative disc disease. The sacroiliac joints are intact. IMPRESSION: Normal vertebral body heights without evidence of subluxation. Multiple previous lumbar spine fractures are not well seen, and better evaluatedon the prior CT. Dictated by Roman Alston MD (Resident). Dr. Rhonda Matthews M.D. have personally reviewed and interpretedthis examination/study. This report was electronically signed by Rhonda LANDRUM M.D. on 02/23/2019 3:13 PM . Darya Ruiz PA-C DIAGNOSTIC IMAG ING ORDERABLES * (ABNORMAL) CBC W AUTO DIFFERENTIAL (01/05/2019 2:32 AM [facility]) Only the most recent of3 resultswithin the time period is included. WBC 11.0(H) 3.5 - 10.5 10 3/uL 01/05/2019 3:20 AM [facility] RBC 3.96(L) 4.30 - 5.70 10 6/uL 01/05/2019 3:20 AM [facility] Hemoglobin 11.5(L) 13.5 - 17.5 g/dL 01/05/2019 3:20 AM [facility] Hematocrit 35.8(L) 39.0 - 50.0 % 01/05/2019 3:20 AM [facility] MCV 90.4 81.0 - 97.0 fL 01/05/2019 3:20 AM [facility] MCH 29.0 28.0 - 34.0 pg 01/05/2019 3:20 AM [facility] MCHC 32.1 32.0 - 36.0 g/dL 01/05/2019 3:20 AM [facility] Platelet Count 173 150 - 400 10 3/uL 01/05/2019 3:20 AM [facility] RDW-SD 43.9 36.0 - 50.0 fL 01/05/2019 3:20 AM [facility] RDW-CV 13.2 11.2 - 14.8 % 01/05/2019 3:20 AM [facility] MPV 11.3 9.3 - 12.8 fL 01/05/2019 3:20 AM [facility] nRBC Absolute 0.00 0 10 3/uL 01/05/2019 3:20 AM [facility] nRBC Auto 0.0 0 /100 WBC 01/05/2019 3:20 AM [facility] Neutrophils % 70.7(H) 35.0 - 70.0 % 01/05/2019 3:20 AM [facility] Lymphocytes % 14.9(L) 19.7 - 55.1 % 01/05/2019 3:20 AM [facility] Monocytes % 9.2 3.0 - 15.0 % 01/05/2019 3:20 AM CDT [facility] Eosinophils % 4.3 0.0 - 6.0 % 01/05/2019 3:20 AM T [facility] Basophil % 0.5 0.0 - 1.5 % 01/05/2019 3:20 AM T [facility] Neutrophils Absolute 7.8(H) 1.6 - 7.0 10 3/uL 01/05/2019 3:20 AM T [facility] Lymphocyte Absolute 1.6 0.8 - 2.9 10 3/uL 01/05/2019 3:20 AM T [facility] Monocytes Absolute 1.01(H) 0.14 - 0.66 10 3/uL 01/05/2019 3:20 AM T [facility] Eosinophils Absolute 0.47(H) 0.00 - 0.45 10 3/uL 01/05/2019 3:20 AM T [facility] Basophils Absolute 0.06 0.00 - 0.06 10 3/uL 01/05/2019 3:20 AM [facility] Immature Granulocytes % 0.4 0.0 - 1.0 % 01/05/2019 3:20 AM [facility] Blood BLOOD SPECIMEN / Unknown Lab Venipuncture / Unknown 01/05/2019 2:32 AM CDT 01/05/2019 3:15 AM CDT Juanpablo-Chaparro Quigley MD LAB - HEMATOLOGY ORD ERABLES Performing Organization Address City/State/[facility] Co de Phone Number [facility] [address] [phone] * (ABNORMAL) BASIC METABOLIC PANEL (CALCIUM TOTAL) (01/05/2019 2:32 AM CDT) Only the most recent of3 resultswithin the time period is included. BUN 14 7 - 26 mg/dL 01/05/2019 3:43 AM T [facility] Creatinine 0.9 0.6 - 1.2 mg/dL 01/05/2019 3:43 AM [facility] Sodium 139 136 - 145 mmol/L 01/05/2019 3:43 AM T [facility] Potassium 3.8 3.5 - 4.5 mmol/L 01/05/2019 3:43 AM [facility] Chloride 106 98 - 107 mmol/L 01/05/2019 3:43 AM [facility] CO2 24 22 - 29 mmol/L 01/05/2019 3:43 AM [facility] Glucose 118(H) 70 - 115 mg/dL 01/05/2019 3:43 AM [facility] Calcium 8.1(L) 8.4 - 10.2 mg/dL 01/05/2019 3:43 AM [facility] Anion Gap 13 8 - 18 01/05/2019 3:43 AM [facility] BUN/Creatinine Ratio 16 7 - 23 01/05/2019 3:43 AM [facility] Osmolality Calculated 290 270 - 300 mOsm/kg 01/05/2019 3:43 AM [facility] eGFR >60 >60 mL/min/1.7 3 m2 01/05/2019 3:43 AM [facility] Blood BLOOD SPECIMEN / Unknown Lab Venipuncture / Unknown 01/05/2019 2:32 AM CDT 01/05/2019 3:15 AM CDT Itz Quigley MD LAB - CHEMISTRY ORDMicheline GRAFF Performing Organization Address City/[facility]/ZIP Co de Phone Number [address] [phone] * (ABNORMAL) PHOSPHORUS BLOOD (01/05/2019 2:32 AM CDT) Only the most recent of2 resultswithin the time period is included. Phosphorus 1.9(L) 2.3 - 4.7 mg/dL 01/05/2019 3:39 AM T [facility] Blood BLOOD SPECIMEN / Unknown Lab Venipuncture / Unknown 01/05/2019 2:32 AM CDT 01/05/2019 3:15 AM CDT Itz Quigley MD LAB - CHEMISTRY ESSENCE GRAFF [address] [phone] * MAGNESIUM BLOOD (01/05/2019 2:32 AM CDT) Only the most recent of2 resultswithin the time period is included. Magnesium 2.0 1.6 - 2.6 mg/dL 01/05/2019 3:43 AM CDT [facility] Blood BLOOD SPECIMEN / Unknown Lab Venipuncture / Unknown 01/05/2019 2:32 AM CDT 01/05/2019 3:15 AM CDT Itz Quigley MD LAB - CHEMISTRY ESSENCE GRAFF Performing Organization Address City/[facility]/[place] [address], [facility] [phone] * (ABNORMAL) CK BLOOD (01/05/2019 2:32 AM CDT) Only the most recent of3 resultswithin the time period is included. CK Total 774(H) 30 - 200 Units/L 01/05/2019 3:43 AM CDT [facility] Blood BLOOD SPECIMEN / Unknown Lab Venipuncture / Unknown 01/05/2019 2:32 AM CDT 01/05/2019 3:15 AM CDT Itz Quigley MD LAB - CHEMISTRY ESSENCE GRAFF Performing Organization Address City/[facility] [place] [address], [facility] [phone] * XR CLAVICLE BILAT 2VW (01/04/2019 10:46 AM CDT) Anatomical Region Laterality Modality Chest, Upper Extremity Radiograp hic Imaging 01/04/2019 11:1 5 AM CDT Impressions 01/04/2019 4:09 PM CDT IMPRESSION: Redemonstrated comminuted fracture of the right clavicle. Dictated by Rigoberto Gray MD (resident caregiver). I, Dr. MIGEL CORADO have personally reviewed and interpreted this examination/study. This report was electronically signed by MIGEL CORADO on 01/04/2019 4:09 PM . Narrative 01/04/2019 4:09 PM CDT EXAMINATION: XR CLAVICLE BILAT 2VW HISTORY: clavicle fx FINDINGS: Comparison is made to the chest CT from 01/03/2019 Redemonstrated comminuted fracture of the right clavicle with inferior displacement of the lateral most fragment and 2.5 cm of overlap of the fracture margins. The visible portions of the lungs are clear. Procedure Note Migel Corado, - 01/04/2019 EXAMINATION: XR CLAVICLE BILAT 2VW HISTORY: clavicle fx FINDINGS: Comparison is made to the chest CT from 01/03/2019 Redemonstrated comminuted fracture of the right clavicle with inferior displacement of the lateral most fragment and 2.5 cm of overlap of the fracture margins. The visible portions of the lungs are clear. IMPRESSION: Redemonstrated comminuted fracture of the right clavicle. Dictated by Rigoberto Gray MD (resident caregiver). I, Dr. MIGEL CORADO have personally reviewed and interpreted this examination/study. This report was electronically signed by MIGEL CORADO on 01/04/2019 4:09 PM . Sidra Moreland MD DIAGNOSTIC IMAG ING ORDERABLES * CT CHEST W CONTRAST (01/03/2019 9:53 PM CDT) Anatomical Region Laterality Modality Chest Computed Tomogra phy 01/03/2019 10:0 7 PM CDT Impressions 01/04/2019 10:14 AM CDT IMPRESSION: 1. A comminuted right proximal clavicular fracture with surrounding hematoma 2. Multiple bilateral rib fractures. Displaced left transverse process fracture of L1, right transverse process fracture of L1, spinous process fractures of L1 and L2, and left transverse process fracture of L3. 3. Circumferential esophageal wall thickening, most prominent at the gastroesophageal junction may represent reflux esophagitis however cannot exclude malignancy. Recommend endoscopic correlation if clinically indicated. 4. Trace left pleural effusion. Dictated by Surjit Moody MD (resident caregiver). Dr. Rhonda Matthews M.D. have personally reviewed and interpreted this examination/study. This report was electronically signed by Rhonda LANDRUM M.D. on 01/04/2019 10:14 AM . Narrative 01/04/2019 10:14 AM CDT EXAMINATION: Computed tomography (CT) of the chest with contrast HISTORY: Trauma TECHNIQUE: CT of the chest was performed following the uneventful administration of 100 mL of Isovue-370 intravenous contrast according to standard protocol. COMPARISON: No prior study is available for comparison. FINDINGS: There is a left-sided three-vessel aortic arch. The aorta and main pulmonary arteries are normal in course and caliber. Mild bilateral dependent atelectasis is present. Otherwise no focal consolidation is seen. Trace left pleural effusion is seen. There is no evidence of pneumothorax. No suspicious pulmonary nodule is identified. The trachea is patent and midline. The heart size is normal. No pericardial effusion is present. No mediastinal, hilar, supraclavicular, or axillary lymphadenopathy is seen. The thyroid gland enhances homogenously. There is mild diffuse thickening of the esophageal wall, most prominent distally, may represent reflux esophagitis although malignancy cannot be excluded. The visible portion of the abdominal organs appear unremarkable. A comminuted right proximal clavicular fracture is noted with associated soft tissue stranding, consistent with hematoma. Fractures of the right fourth and fifth posterolateral ribs are present. Mildly displaced left posterior 11th and 12th rib fractures are seen. A mildly displaced and comminuted left transverse process fracture of L1. Mildly displaced right transverse process fracture of L1. Mildly displaced spinous process fracture of L1 and L2. Moderately displaced left transverse process fracture of L3. Procedure Note Anastasiia Landrum MD - 01/04/2019 EXAMINATION: Computed tomography (CT) of the chest with contrast HISTORY: Trauma TECHNIQUE: CT of the chest was performed following the uneventful administration of 100 mL of Isovue-370 intravenous contrast according to standard protocol. COMPARISON: No prior study is available for comparison. FINDINGS: There is a left-sided three-vessel aortic arch. The aorta and main pulmonary arteries are normal in course and caliber. Mild bilateral dependent atelectasis is present. Otherwise no focal consolidation is seen. Trace left pleural effusion is seen. There is no evidence of pneumothorax. No suspicious pulmonary nodule is identified. The trachea is patent and midline. The heart size is normal. No pericardial effusion is present. No mediastinal, hilar, supraclavicular, or axillary lymphadenopathy isseen. The thyroid gland enhances homogenously. There is mild diffuse thickening of the esophageal wall, most prominent distally, may represent reflux esophagitis although malignancy cannot be excluded. The visible portion of the abdominal organs appearunremarkable. A comminuted right proximal clavicular fracture is noted with associated soft tissue stranding, consistent with hematoma. Fractures of the right fourth and fifth posterolateral ribs are present. Mildly displaced left posterior 11th and 12th rib fractures are seen. A mildly displaced and comminuted left transverse process fracture of L1. Mildly displacedright transverse process fracture of L1. Mildly displaced spinous process fracture of L1 and L2. Moderately displaced left transverse process fracture of L3. IMPRESSION: 1. A comminuted right proximal clavicular fracture with surrounding hematoma 2. Multiple bilateral rib fractures. Displaced left transverse process fracture of L1, right transverse process fracture of L1, spinous process fractures of L1 and L2, and left transverse process fracture of L3. 3. Circumferential esophageal wall thickening, most prominent at the gastroesophageal junction may represent reflux esophagitis howevercannot exclude malignancy. Recommend endoscopic correlation if clinically indicated. 4. Trace left pleural effusion. Dictated by Surjit Moody MD (resident caregiver). I, Dr. Rhonda LANDRUM M.D. have personally reviewed and interpretedthis examination/study. This report was electronically signed by Rhonda LANDRUM M.D. on 01/04/2019 10:14 AM . Dereje Lobo MD CT ORDERABLES * DRUG SCREEN TOX URINE PANEL (01/03/2019 7:55 PM CDT) Amphetamines Screen Urine Negative Negative: < 1000 ng/mL 01/03/2019 8:12 PM CDT [facility] Barbiturates Screen Urine Negative Negative: < 200 ng/mL 01/03/2019 8:12 PM CDT [facility] Benzodiazepine Screen Urine Negative Negative: < 200 ng/mL 01/03/2019 8:12 PM CDT [facility] Opiates Urine Negative Negative: < 300 ng/mL 01/03/2019 8:12 PM CDT [facility] Cocaine Metabolites Urine Negative Negative: < 300 ng/mL 01/03/2019 8:12 PM CDT [facility] Phencyclidine Screen Urine Negative Negative: < 25 ng/ml 01/03/2019 8:12 PM CDT [facility] Cannabinoids Screen Urine Negative Negative: <50 ng/mL 01/03/2019 8:12 PM CDT [facility] Methadone Screen Urine Negative Negative: < 300 ng/mL 01/03/2019 8:12 PM CDT [facility] Urine URINE / Unknown Collection / Unknown 01/03/2019 7:55 PM CDT 01/03/2019 7:55 PM CDT Narrative [facility] - 01/03/2019 8:12 PM CDT The Urine Toxicology Screening Panel does not screen for Propoxyphene, Meprobamate, Carisoprodol, Trazodone, wmrz-soq-vtwuvxa medications and/or volatiles (Acetone, Isopropanol, Methanol or Ethylene Glycol). Ethanol, Salicylate, Acetaminophen, Tricyclic Antidepressants and several therapeutic drugs may be individually assayed in serum or plasma specimen. Toxicology testing by the [facility] is an aid to medical diagnosis and treatment of patients. No documented chain of custody was maintained. Results are intended to be used for clinical purposes only. Levon Jonas DO LAB - [place] [address], [facility] [phone] * HIV-1 HIV-2 ANTIGEN/ANTIBODY (01/03/2019 7:05 PM CDT) HIV Antigen/Antibod y 1 & 2 Non-reacti ve Non-react denia 01/03/2019 7:49 PM CDT [facility] Comment: Neither HIV-1 p24 Antigen nor HIV-1/HIV-2 Antibodies are detected. Blood BLOOD SPECIMEN / Unknown Venipuncture / Unknown 01/03/2019 7:05 PM CDT 01/03/2019 7:06 PM CDT Glenn Silver MD LAB - HEMATOLOGY ORD ERABLES Performing Organization Address City/[facility]/[place] [address], [facility] [phone] * HEPATITIS C AB SCREEN RFLX NAAT QUANT (01/03/2019 7:05 PM CDT) Pathologist [facility] Hepatitis C Antibody Non-react denia Non-reac tive 01/03/2019 7:49 PM CDT [facility] Comment: Hepatitis C Antibody screen indicates no serologic evidence of past or current infection with Hepatitis C Virus. Patients with unexplained liver disease who are immunocompromised or suspected of having acute Hepatitis C infection may benefit from Nucleic Acid Test (TOPHER) for Hepatitis C Viral RNA to confirm Hepatitis C status. Blood BLOOD SPECIMEN / Unknown Venipuncture / Unknown 01/03/2019 7:05 PM CDT 01/03/2019 7:06 PM CDT Glenn Silver MD LAB - CHEMISTRY ESSENCE GRAFF Performing Organization Address [facility] Co de Phone Number [address] [phone] * TYPE + SCREEN PANEL (01/03/2019 6:56 PM CDT) [facility] Antibody Screen NEG 9 7:35 PM CDT [facility] ABO Rh B POS 01/03/2019 7:35 PM CDT [facility] Blood Bank BLOOD SPECIMEN / Unknown Venipuncture / Unknown 01/03/2019 6:56 PM CDT 01/03/2019 6:56 PM CDT Levon Jonas DO LAB - BLOOD BANK UTE QUIÑONEZ Performing Organization Address [facility] Co de Phone Number [facility] [address] [place] [address] * EKG 12-LEAD (01/03/2019 6:53 PM CDT) [facility] Ventricular Rate 95 BPM [facility] Atrial Rate 95 BPM [facility] P-R Interval 106 ms [facility] QRS Duration ms 84 ms [facility] Q-T Interval ms 346 ms [facility] QTC Calculation (Bezet) 434 ms [facility] Calculated P [place] 28 degrees [facility] Calculated R [place] 6 degrees [facility] Calculated T [place] 35 degrees [facility] Interpretation EKG SINUS RHYTHM WITH SHORT OR OTHERWISE NORMAL ECG NO PREVIOUS ECGS AVAILABLE Confirmed by Surjit Mejias ([id number]), senior editor SILVINO JAEGER ([id number]) on 01/23/2019 8:13:07 AM [facility] 01/03/2019 6:53 PM CDT 01/23/2019 8:13 AM CDT Levon Jonas DO ECG ORDERABLES Performing Organization Address City/[facility]/ZIP Co de Phone Number [facility] * PTT [facility] (01/03/2019 6:52 PM CDT) APTT 25.6 23.0 - 38.4 Seconds 01/03/2019 7:04 PM CDT [facility] Comment: * Please Note: New therapeutic range for heparin therapy. * Suggested therapeutic range for full dose I.V. heparin therapy for venous thromboembolism is 65 to 103 seconds. Blood BLOOD SPECIMEN / Unknown Venipuncture / Unknown 01/03/2019 6:52 PM CDT 01/03/2019 6:52 PM CDT Levon Jonas DO LAB - COAGULATION OR DERABLES [address] [phone] * PT-INR [facility] (01/03/2019 6:52 PM CDT) PT 13.2 12.1 - 14.8 Seconds 01/03/2019 7:03 PM CDT [facility] INR 1.1 See Comment 01/03/2019 7:03 PM CDT [facility] Comment: The suggested therapeutic range for standard coumadin (warfarin) therapy is an INR of 2.0-3.0. For high-risk patients (Mechanical Mitral Valve Prosthesis, etc.), the suggested prophylactic therapeutic range is an INR of 2.5-3.5. Blood BLOOD SPECIMEN / Unknown Venipuncture / Unknown 01/03/2019 6:52 PM CDT 01/03/2019 6:52 PM CDT [facility] DO LAB - COAGULATION OR DERABLES Performing Organization Address [facility]/ZIP Co de Phone Number [address] [phone] * ALCOHOL ETHYL BLOOD (01/03/2019 6:52 PM CDT) Interpretation Ethanol None Detected None Detected mg/dL 01/03/2019 7:12 PM CDT [facility] Comment: Ethanol levels less than 10 mg/dL are resulted as None detected . Blood BLOOD SPECIMEN / Unknown Venipuncture / Unknown 01/03/2019 6:52 PM CDT 01/03/2019 6:52 PM CDT [facility] - CHEMISTRY ORDE RABLES Performing Organization Address [facility] Co de Phone Number [address] [phone] * XR CHEST 1VW PORTABLE (01/03/2019 6:46 PM CDT) Anatomical Region Laterality Modality Chest Radiographic Christina ging 01/03/2019 6:50 PM CDT Impressions 01/04/2019 12:01 PM CDT IMPRESSION: No acute pulmonary process. Fractures of the right clavicle and right fourth posterolateral rib. Dictated by Mari Hamilton MD (resident caregiver). This report was approved by Joseph Quevedo on 01/04/2019 11:42 AM . I, Dr. Dr. GAVI SIDHU MD have personally reviewed and interpreted this examination/study. This report was electronically signed by Dr. GAVI SIDHU MD on 01/04/2019 12:01 PM . Narrative 01/04/2019 12:01 PM CDT EXAMINATION: XR CHEST 1VW PORTABLE HISTORY: Trauma COMPARISON: No prior study is available for comparison. FINDINGS: There is no focal consolidation, pleural effusion, or pneumothorax. The cardiomediastinal silhouette is normal. There is a minimally displaced fracture of the right fourth posterolateral rib. There is a moderately displaced fracture of the proximal shaft of the right clavicle. Procedure Note Gavi Sidhu MD - 01/04/2019 EXAMINATION: XR CHEST 1VW PORTABLE HISTORY: Trauma COMPARISON: No prior study is available for comparison. FINDINGS: There is no focal consolidation, pleural effusion, or pneumothorax. The cardiomediastinal silhouette is normal. There is a minimally displaced fracture of the right fourth posterolateral rib. There is a moderately displaced fracture of the proximal shaft of the right clavicle. IMPRESSION: No acute pulmonary process. Fractures of the right clavicle and right fourth posterolateral rib. Dictated by Mari Hamilton MD (resident caregiver). This report was approved by Joseph Quevedo on 01/04/2019 11:42 AM . I, Dr. Dr. GAVI SIDHU MD have personally reviewed and interpretedthis examination/study. This report was electronically signed by Dr. GAVI SIDHU MD on 01/04/2019 12:01 PM . Levon Jonas DO DIAGNOSTIC IMAGING O RDERABLES Care Teams Paper Folder Relationship Specialty Start Date End Date Chencho Sosa MD [address] [place] [id number] PCP - General Family Medicine 01/03/19
--- OUTSIDE RECORDS SUMMARY | 2024-07-26 16:17 | XMS_ITS | Encounter Summary ---
Author Organization [facility] Address [facility] [place] [address] Care Team Providers Care Enrollment Processor Name Role Phone Chencho Sosa MD Primary Care Provider [phone] Wendy Trevino MD Unavailable [phone] Encounter Details Date Type Department Care Team (Latest Contact Info) Description 04/03/2024 [employer] Message Enc [facility] Multispecialty Care - [facility] [address] [facility], [address] [place] [address] Jett Clement MD [address] [place], [place] [id number] Tashi Esposito - Physician Statement to be completed Social History Tobacco Use Types Packs/Day Years Used Date Smoking Tobacco: Never Smokeless Tobacco: Never Alcohol Use Standard Drinks/Week Comments Not Currently 0 (1 standard drink = 0.6 oz pur e alcohol) AUDIT-C Answer Date Recorded Frequency of Alcohol Consumption Never 03/11/2018 Average Number of Drinks Not on file 018 Frequency of Binge Drinking Not on file 07/2017 PHQ-2 Answer Date Recorded Patient Health Questionnaire-2 Score 0 02/03/2024 Sex and Gender Information Value Date Recorded Sex Assigned at Not on file Legal Sex Male 12:01 PM CDT Gender Identity Not on file Sexual Orientation Straight 06/02/2021 8: 10 AM [employer]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 Answer Date of Assessment Author Status No 10/25/2021 4:51 AM CDT Activ e * Do you have serious difficulty walking or climbing stairs? Answer Date of Assessment Author Status No 10/25/2021 4:51 AM Lizzie Murrieta RN Active * Do you have difficulty dressing or bathing? Answer Date of Assessment Author Status No 10/25/2021 4:51 AM Lizzie Murrieta RN Active * Because of a physical, mental, or emotional condition, do you have difficulty doing errands alone such as visiting a doctor's office or shopping? Answer Date of Assessment Author Status No 10/25/2021 4:51 AM Lizzie Murrieta RN Active documented as of this encounter Mental Status * Because of a physical, mental, or emotional condition, do you have serious difficulty concentrating, remembering, or making decisions? Answer Entry Date Author Status No 10/25/2021 4:51 AM Lizzie Murrieta RN Active documented in this encounter Plan of Treatment Upcoming Encounters Date Type Department Care Team (Late st Contact Info) Description 08/17/2024 1:40 PM CDT Office Visit [facility] Multispecialty Care - [facility] [address] [facility], [address] [place] [phone] Jett Clement MD [address] [place] [address] 10/30/2024 2:00 PM CDT Office Visit [facility] [facility], [address] [place] [address] Autumn Lima PA-C [address] [facility], [address] [place] [address] documented as of this encounter Goals Goal Patient Goal Type Associated Problems Recent Progress Patient-Stated? Author Health - patient able to perform ADLs independently General No Tori Garcia, STEERSMAN documented as of this encounter Visit Diagnoses Not on filedocumented in this encounter Additional Health Concerns Assessment Noted Time PHQ-9 Depression Total Score: 0 08/30/19 2:43 PM CDT documented as of this encounter Care Teams Enrollment Processor Relationship Specialty Start Date End Date Chencho Sosa MD [address] [place] [address] PCP - General FAMILY PRACTICE 03/11/18 Wendy Trevino MD [facility]. [address] [place] [address] [place] [employer] INTERVENTIONAL CARDIOLOGY 04/02/18 documented as of this encounter
--- OUTSIDE RECORDS SUMMARY | 2024-07-26 16:17 | XMS_ITS | Clinical Summary ---
Author Organization [facility] Address [address] [place] [address] Care Team Providers Care Crowning Hammer Operator Name Role Phone Chencho Sosa MD Primary Care Provider [phone] Wendy Trevino MD Unavailable [phone] Allergies Active Allergy Reactions Criticality Noted Date Comments Lisinopril Dizziness 10/31/2021 Medications aspirin 81 MG tablet Take 1 tablet (81 mg total) by mouth daily. 9 Active omeprazole (PRILOSEC) 20 MG capsule Take 1 capsule (20 mg total) by mouth daily. 2 Active oxybutynin XL (DITROPAN XL) 10 MG 24 hr tabletIndications :Stricture of bulbous urethra in male, unspecified stricture type,Urge incontinence Take 1 tablet (10 mg total) by mouth nightly at bedtime. at bedtime 90 tablet 1 2 Active Biotin 10 MG TabIndications:My elopathy (CMS/HCC HHS/HCC) Take 1 tablet by mouth daily. 30 tablet 11 3 Active Coenzyme Q10 100 MG TabIndications:My elopathy (CMS/HCC HHS/HCC) Take 100 mg by mouth daily. 30 tablet 11 3 Active atorvastatin (LIPITOR) 80 MG tablet Take 1 tablet (80 mg total) by mouth. 3 Active isosorbide mononitrate ER (IMDUR) 30 MG 24 hr tablet TAKE 1/2 TABLET(15 MG) BY MOUTH DAILY 45 tablet 1 4 Active cyanocobalamin (B-12) 1000 MCG/ML injection Inject 1 mL (1,000 mcg total) into the muscle every 28 days. 4 Active mirabegron ER (MYRBETRIQ) 25 MG 24 hr tablet Take 1 tablet (25 mg total) by mouth daily. 4 Active furosemide (LASIX) 20 MG tablet Take 1 tablet (20 mg total) by mouth daily. 3 Active rosuvastatin (CRESTOR) 40 MG tablet TAKE 1 TABLET BY MOUTH EVERY NIGHT AT BEDTIME 100 tablet 2 4 Active metoprolol succinate ER (TOPROL-XL) 25 MG 24 hr tablet TAKE 1 TABLET BY MOUTH ONCE DAILY 100 tablet 2 4 Active Active Problems Problem Noted Date Diagnosed Date Urolithiasis 10/25/2021 Syncope, unspecified syncope type 10/19/2021 Paroxysmal SVT (supraventric ular tachycardia) ([facility]) 10/19/2021 Snoring 11/22/2020 Daytime somnolence 11/22/2020 Pure hypercholesterolemia 11/26/2019 Right leg numbness 06/10/2019 Lumbar transverse process fracture ([facility]) 01/05/2019 Coronary artery disease invo lving [place] coronary artery of [place] heart without angina pectoris 03/13/2018 Chest pain 03/11/2018 Essential hypertension Resolved Problems Problem Noted Date Diagnosed Date Resolved Date Impaired mobility and activi ties of daily living 01/05/2019 11/28/2020 Encounters Date Type Department Care Team Description 06/21/2024 11:25 PM 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 - 06/21/2024 11:59 PM [facility] Hospital Encounter [facility] [address] Rosy Nicolas FNP Discharge Disposition: Home or Self Care (Routine Discharge) 06/21/2024 [facility] [place] [address] Rosy Nicolas FNP from Last 3 Months Immunizations Name Administration Dates Next Due Afluria 36 MONTHS+ (Prefille d Syringe IIV4) 03/04/2019 Influenza (Generic) 04/10/2021, 9,05/22/2015,2012 Influenza Adult (Generic) 05/13/2021,,03/04/2019,2017,04/04/2018,05/22/2015,05/08/2013 Shingrix 01/03/2022,10/18/2021 Tdap (Generic) 07/05/2021, 9,01/03/2019,2012,01/16/2013 Tetanus Toxoid Inj 01/03/2019,01/03/2019, 013 Zoster Unspecified Formulation 01/03/2022,2021 Family History Medical History Relation Comments Heart Disease Father Diabetes Mother Heart Disease Mother Relation Status Comments Father Mother Social History Tobacco Use Types Packs/Day Years Used Date Smoking Tobacco: Never Smokeless Tobacco: Never Tobacco Cessation:Counseling Given: Not Answered Alcohol Use Standard Drinks/Week Comments Not Currently [...] Sexual Orientation Straight 06/02/2021 8: 10 AM 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 Occupation Industry Job Start Date Job End Date Not on file Not on file Not on file Not on file Last Filed Vital Signs Vital Sign Reading Time Taken Comments Blood Pressure 126/69 02/03/2024 2:22 PM CDT Pulse 65 02/03/2024 2:22 PM CDT Temperature 37.1 C (98.8 F) 02/03/2024 2:22 PM CDT Respiratory Rate 17 05/28/2023 2:47 PM 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 Oxygen Saturation 97% 02/03/2024 2:2 2 PM CDT Inhaled Oxygen Concentration - - Weight 136.1 kg (300 lb) 02/03/2024 2:2 2 PM CDT Patient stated Height 177.8 cm (5' 10 ) 02/03/2024 2:2 2 PM CDT Body Mass Index 43.05 02/03/2024 2:22 PM CDT Plan of Treatment Upcoming Encounters Date Type Department Care Team (Late st Contact Info) Description 08/17/2024 1:40 PM CDT Office Visit [facility] Multispecialty Care - [facility] [address] [facility], [address] [place] [address] Jett Clement MD [address] [place] [address] 10/30/2024 2:00 PM CDT Office Visit [facility] [facility], [address] [place] [address] Autumn Lima PA-C [address] [facility], [address] [place] [address] Health Maintenance Due Date Last Done Comments Colorectal Cancer Screening Colonoscopy (10 Years) 1965 Annual Physical 01/29/1968 Pneumococcal Vaccine: Pediatrics (0 to 5 Years) and At-Risk Patients (6 to 64 Years) (1 of 2 - PCV) 1971 ASCVD LDL 12/08/2023 12/07/2022, 05/10, 04/26/2021, Additional history exists COVID-19 Vaccine (3 - 2023- season) 2024 05/13/2021, 10/15/2020 Influenza Adult (#1) 2024 05/13/2021, 04/10/2021, 04/10/2019, Additional history exists PHQ-2 (Physician [place]) 06/10/2024 02/03/2024 DTaP, Tdap and Td Vaccines (8 - Td or Tdap) 07/05/2031 07/05/2021, 01/03/2019, 01/03/2019, Additional history exists Hepatitis C Completed 10/17/2021, 01/04/2019 Zoster Vaccines Completed 01/03/2022, 12/09, 10/18/2021, Additional history exists Meningococcal B Vaccine Aged Out No l onger eligible based on patient's age to complete this topic Meningococcal Vaccine Aged Out No lydia dave eligible based on patient's age to complete this topic RSV Immunizations Under 20 Months Aged Out No longer eligible based on patient's age to complete this topic Goals Goal Patient Goal Type Associated Problems Recent Progress Patient-Stated? 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 Devices Implanted Type Area Geospatial Systems Integrator Device Identifier Shelf Expiration Date Model / Serial / Lot Stent Ureteral [place] Sci Contour 6fr X 26cm - [id number] Implanted:Qty : 1 on 11/02/2021 by Ed Gr MD at [facility] Stent Left: Ureter [employer] [id number] 07/17/2024 [id number] / / [id number] Explanted Type Area Geospatial Systems Integrator Device Identifier Shelf Expiration Date Model / Serial / Lot Stent Ureteral [place] Sci Contour 6fr X 26cm - [id number] Implanted:Qty: 1 on 10/25/2021 by Ed Gr MD at [facility] Explanted:Qty: 1 on 11/02/2021 at [facility] Stent Left: Ureter [employer] 06/23/2024 [id number] / / [id number] Procedures Procedure Name Priority Date/Time Associated Diagnosis Comments CBC W/DIFF AUTOMATED Routine 06/21/2024 9:45 PM 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 Encounter for long-term (current) use of antibiotics COMPREHENSIVE METABOLIC PANEL Routine 06/21/2024 9:45 PM 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 Encounter for long-term (current) use of antibiotics LIPID PANEL Routine 12/07/2022 10:17 AM CDT Hyperlipidemia, mixed HEPATITIS C ANTIBODY Routine 10/17/2021 9:49 AM CDT from Last 3 Months or Most Recently Relevant to Health Maintenance Results * (ABNORMAL) COMPREHENSIVE METABOLIC PANEL (06/21/2024 9:45 PM [facility]) [facility] Signature GLUCOSE 141(H) 70 - 99 MG/DL 06/21/2024 11:43 PM [facility] BUN 19(H) 7 - 18 MG/DL 06/21/2024 11:43 PM [facility] CREATININE S/P/B 1.08 0.7 - 1.3 MG/DL 06/21/2024 11:43 PM [facility] SODIUM S/P/B 140 136 - 145 MMOL/L 06/21/2024 11:43 PM [facility] POTASSIUM S/P/B 4.0 3.5 - 5.1 MMOL/L 06/21/2024 11:43 PM [facility] CHLORIDE S/P/B 104 97 - 115 MMOL/L 06/21/2024 11:43 PM [facility] CO2 29.3 21 - 32 MMOL/L 06/21/2024 11:43 PM [facility] CALCIUM S/P/B 8.5 8.5 - 10.1 MG/DL 06/21/2024 11:43 PM [facility] BILIRUBIN TOTAL S/P/B 0.5 0.2 - 1.2 MG/DL 06/21/2024 11:43 PM [facility] Comment: THIS ASSAY IS NOT RECOMMENDED FOR PATIENTS UNDERGOING TREATMENT WITH ELTROMBOPAG DUE TO THE POTENTIAL FOR FALSELY ELEVATED RESULTS. TOTAL PROTEIN S/P/B 6.7 6.4 - 8.2 G/DL 06/21/2024 11:43 PM [facility] ALBUMIN S/P/B 3.4 3.4 - 5.0 G/DL 06/21/2024 11:43 PM [facility] AST 24 15 - 37 U/L 06/21/2024 11:43 PM 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 [facility] ALT 24 16 - 60 U/L 06/21/2024 11:43 PM [facility] ALKALINE PHOSPHATASE S/P/B 109 50 - 136 U/L 06/21/2024 11:43 PM [facility] ANION GAP 6.7 2 - 10 MMOL/L 06/21/2024 11:43 PM [facility] BUN CREATININE RATIO 17.6 6 - 26 06/21/2024 11:43 PM [facility] A/G RATIO 1.0 1.0 - 2.0 RATIO 06/21/2024 11:43 PM [facility] GFR ESTIMATE 79(L) >90 ML/MIN/1.7 3 M2 06/21/2024 11:43 PM [facility] Comment: NOTE: eGFR is not calculated for patients <18 years of age or gender unknown. This is an estimated GFR calculation using the new CKD EPI creatinine equation without race and so does not require a correction factor for race. This estimated GFR should not be used for calculating drug doses. 06/21/2024 9:45 PM 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 Rosy Nicolas [facility] Final Result [facility] [address] [place] [address], * CBC W/DIFF AUTOMATED (06/21/2024 9:45 PM 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) WBC 7.21 4.5 - 11.0 x10'3/uL 06/21/2024 11:38 PM [facility] RBC 5.09 4.70 - 6.10 x10'6/uL 06/21/2024 11:38 PM [facility] HGB 14.2 14.0 - 18.0 G/DL 06/21/2024 11:38 PM [facility] HCT 44.3 43.0 - 54.0 % 06/21/2024 11:38 PM [facility] MCV 87.0 80.0 - 94.0 FL 06/21/2024 11:38 PM [facility] MCH 27.9 27.0 - 31.0 PG 06/21/2024 11:38 PM [facility] MCHC 32.1 32.0 - 36.0 G/DL 06/21/2024 11:38 PM [facility] RDW 14.2 11.5 - 14.5 % 06/21/2024 11:38 PM [facility] PLT 238 130 - 400 x10'3/uL 06/21/2024 11:38 PM [facility] MPV 12.0 9.3 - 12.2 FL 06/21/2024 11:38 PM [facility] DIFFERENTIAL TYPE AUTOMATED DIFFERENTIAL 06/21/2024 11:38 PM [facility] NEUTROPHILS % 46.4 % 06/21/2024 11:38 PM [facility] LYMPHOCYTES % 38.7 % 06/21/2024 11:38 PM [facility] MONOCYTES % 10.3 % 06/21/2024 11:38 PM [facility] EOSINOPHILS 3.6 % 06/21/2024 11:38 PM [facility] BASOPHILS 0.7 % 06/21/2024 11:38 PM [facility] IMMATURE GRANS % 0.3 % 06/21/19 11:38 PM [facility] ABS. NEUTROPHILS 3.35 1.80 - 7.70 x10'3/uL 06/21/2024 11:38 PM 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 [facility] ABS. LYMPHOCYTES 2.79 1.00 - 4.80 x10'3/uL 06/21/2024 11:38 PM 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 [facility] ABS. MONOCYTES 0.74 0.30 - 0.82 x10'3/uL 06/21/2024 11:38 PM 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 [facility] ABS. EOSINOPHILS 0.26 0.04 - 0.54 x10'3/uL 06/21/2024 11:38 PM 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 [facility] ABS. BASOPHILS 0.05 0.01 - 0.08 x10'3/uL 06/21/2024 11:38 PM 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 [facility] ABS. IMMATURE GRANULOCYTES 0.02 0.00 - 0.49 x10'3/uL 06/21/2024 11:38 PM 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 [facility] 06/21/2024 9:45 PM 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 Rosy Nicolas [facility] Final Result [facility] [address] [place] [address], * LIPID PANEL (12/07/2022 10:17 AM CDT) CHOLESTEROL 128 <200 MG/DL 12/07/2022 11:37 AM CDT [facility] TRIGLYCERIDES 111 <150 MG/DL 12/07/2022 11:37 AM CDT [facility] HDL 49 >40.0 MG/DL 12/07/2022 11:37 AM CDT [facility] LDL (CALCULATED) 57 <100 MG/DL 12/08/19 11:37 AM CDT [facility] NON HDL CHOLESTEROL 79 <130 MG/DL 12/07 11:37 AM CDT [facility] CHOL/HDL RATIO 2.6 0.0 - 4.5 12/07/2022 11:37 AM CDT [facility] VLDL CALCULATION 22 5 - 55 MG/DL 12/07/2022 11:37 AM CDT [facility] LIPID INTERPRETATION 12/07/2022 11:37 AM CDT [facility] Comment: NIH CONCENSUS REPORT RECOMMENDATIONS: ADULT CHILD LOW RISK: CHOLESTEROL <200 <170 TRIGLYCERIDE <150 --- HDL >=60 --- LDL <100 <110 BORDERLINE: CHOLESTEROL 200-239 170-199 TRIGLYCERIDE 150-199 --- HDL 40-59 --- LDL 100-159 110-129 HIGH RISK: CHOLESTEROL >=240 >=200 TRIGLYCERIDE >=200 --- HDL <40 --- LDL >=160 >=130 12/07/2022 10:1 7 AM CDT Autumn Lima PA-C LABORATORY Final Resul t [facility] [address] [place] [address], [place] [phone] * HEPATITIS C ANTIBODY (10/17/2021 9:49 AM CDT) HEPATITIS C AB NON-REACTI VE NON-REACTI VE 10/18/2021 9:41 AM CDT [facility] 10/17/2021 9:49 AM CDT Jett Clement MD LABORATORY Final Res ult [facility] [address] [place] [address], [place] [phone] from Last 3 Months or Most Recently Relevant to Health Maintenance Advance Directives Documents on File Type Date Recorded Patient Parking Enforcement Specialist Expl anation Advance Directives and Living Will 03/13/2018 10:17 AM 03/12/2018 POA FOR HEALTHCARE * Full Code (Latest Code Status on File) Date Activated Date Inactivated Comments 10/25/2021 1:06 AM 10/30/2021 5:27 PM * Full Code Date Activated Date Inactivated Comments 06/25/2018 11:51 PM 06/26/2018 4:10 PM * Full Code Date Activated Date Inactivated Comments 03/13/2018 1:45 PM 03/14/2018 3:08 PM Care Teams Crowning Hammer Operator Relationship Specialty Start Date End Date Chencho Sosa MD [address] [place] [address] PCP - General FAMILY PRACTICE 03/11/18 Wendy Trevino MD [facility] [address] [place] [address] [place] INTERVENTIONAL CARDIOLOGY 04/02/18
--- OUTSIDE RECORDS SUMMARY | 2024-07-26 16:17 | XMS_ITS | Encounter Summary ---
Author Organization [facility] Address [facility] [place] [address] Care Team Providers Care Pasting Machine Offbearer Name Role Phone Chencho Sosa MD Primary Care Provider [phone] Wendy Trevino MD Unavailable [phone] Encounter Details Date Type Department Care Team (Latest Contact Info) Description 06/06/2023 Predictviat Message Enc [facility] Medical Group Multispecialty Care - [facility] [address] [facility], [address] [place] [address] Jett Clement MD [address] [place] [address] Jayme Esposito - Referral to [facility] Social History Tobacco Use Types Packs/Day Years [...] Date Recorded Patient Health Questionnaire-2 Score 0 09/10/2022 Sex and Gender Information Value Date Recorded Sex Assigned at Not on file Legal Sex Male 12:01 PM CDT Gender Identity Not on file Sexual Orientation Straight 06/02/2021 8: 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 Answer Date of Assessment Author Status No 10/25/2021 4:51 AM SHIRAT Lizzie Bell RN Active * Because of a physical, mental, or emotional condition, do you have difficulty doing errands alone such as visiting a doctor's office or shopping? Answer Date of Assessment Author Status No 10/25/2021 4:51 AM SHIRAT Lizzie Bell RN Active documented as of this encounter Mental Status * Because of a physical, mental, or emotional condition, do you have serious difficulty concentrating, remembering, or making decisions? Answer Entry Date Author Status No 10/25/2021 4:51 AM Lizzie Murrieta RN Active documented in this encounter Progress Notes * Gladys Roy RN - 06/06/2023 1:58 PM CST Please advise NT SERVER PROGRAMMER documented in this encounter Plan of Treatment Upcoming Encounters Date Type Department Care Team (Late st Contact Info) Description 08/17/2024 1:40 PM CDT Office Visit [facility] Medical Group Multispecialty Care - [facility] [address] [facility], [address] [place] [address] Jett Clement MD [address] [place] [address] 10/30/2024 2:00 PM CDT Office Visit [facility] [facility], [address] [place] [address] Autumn Lima PA-C [address] [facility], [address] [place] [address] documented as of this encounter Goals Goal Patient Goal Type Associated Problems Recent Progress Patient-Stated? Author Health - patient able to perform ADLs independently General No Tori Garcia, GASOLINE TESTER documented as of this encounter Visit Diagnoses Not on filedocumented in this encounter Additional Health Concerns Assessment Noted Time PHQ-9 Depression Total Score: 0 08/30/19 2:43 PM CDT documented as of this encounter Care Teams Pasting Machine Offbearer Relationship Specialty Start Date End Date Chencho Sosa MD [address] [place] [address] PCP - General FAMILY PRACTICE 03/11/18 Wendy Trevino MD [facility]. [address] [place], [place] [address] [place] Process Control Supervisor INTERVENTIONAL CARDIOLOGY 04/02/18 documented as of this encounter
--- OUTSIDE RECORDS SUMMARY | 2024-07-26 16:17 | XMS_ITS | Clinical Summary ---
Author Organization [facility] Address [address] [address] Care Team Providers Care Transformation Coach Name Role Phone Chencho Sosa MD Primary Care Provider [phone] Source Comments [facility],non-owned Affiliates and Associated Physician Practices is amultiple site organization consisting of ambulatory clinics and hospital sitesin [place], [place], [place] and [place]. This disclosure is being madepursuant to the Care Everywhere program and may not contain all information available regarding this patient. Last updated 18.[facility] Allergies No known active allergies Medications * Be aware that medications may not be up to date on this document. Alwaysverify current medications with the patient. Medication Sig Dispensed Refills Start Date End Date Status atorvastatin (LIPITOR) 20 MG tablet Take 20 mg by mouth at bedtime Active metoprolol tartrate (LOPRESSOR) 25 MG tablet Take 25 mg by mouth once daily Active aspirin EC (ECOTRIN) 81 MG tablet Take 81 mg by mouth once daily Active isosorbide mononitrate CR 24hr (IMDUR) 30 MG tablet Take 30 mg by mouth once daily Active acetaminophen (TYLENOL) 325 MG tablet Take 2 tablets by mouth every 6 hours Maximum allowable Acetaminophen amount = 4 Grams (4000 mg) / 24 hours. 01/08/2019 Active Active Problems Problem Noted Date Diagnosed [...] 108 kg (238 lb) 05/25/2019 8:52 AM BED WORKER Height 177.8 cm (5' 10 ) 05/25/2019 8:52 AM BED WORKER Body Mass Index 34.15 05/25/2019 8:52 AM BED WORKER Plan of Treatment Health Maintenance Due Date Last Done Comments COLOGUARD (AGES 45-75) - COLON CA SCREENING 1965 COLON MONITORING 1965 COLONOSCOPY - COLON CA SCREENING 1965 CT COLONOGRAPHY - COLON CA SCREENING 1965 Colorectal Cancer Screening 1965 FIT - COLON CA SCREENING 1965 FLEX SIG - COLON CA SCREENING 1965 DTAP/TDAP/TD VACCINES (1 - Tdap) 01/29/1984 HEPATITIS B VACCINE (1 of 3 - 19+ 3-dose series) 01/29/1984 PNEUMOCOCCAL VACCINE 50+ (1 of 1 - PCV) 2015 ZOSTER VACCINE (1 of 2) 2015 SCREENING FOR DIABETES 01/05/2022 9, 01/04/2019, 01/03/2019 COVID-19 VACCINE (1 - 2023- season) 2024 INFLUENZA VACCINE (#1) 2024 9, 04/04/2018, 05/22/2015, Additional history exists DEPRESSION SCREENING 06/10/2024 HEPATITIS C SCREENING Completed 01/03/2019 HIV SCREENING Completed 01/03/2019 HIB VACCINE Aged Out No longer eligi ble based on patient's age to complete this topic HPV VACCINE Aged Out No longer eligi ble based on patient's age to complete this topic MENINGOCOCCAL (Group B) VACCINE Aged Out No longer eligible based on patient's age to complete this topic MENINGOCOCCAL VACCINE Aged Out No lydia dave eligible based on patient's age to complete this topic PNEUMOCOCCAL VACCINE Aged Out No long er eligible based on patient's age to complete this topic Goals Goal Patient Goal Type Associated Problems Recent Progress Patient-Stated? Author Mobility General No Sri Ozuna, RN Note: Expected end date: 03/09/2019 The goal is to maintain or improve your mobility at the optimum level for you. Interventions: Procedures Procedure Name Priority Date/Time Associated Diagnosis Comments BASIC METABOLIC PANEL (CALCIUM TOTAL) AM Draw 01/05/2019 2:32 AM CDT HEPATITIS C AB SCREEN RFLX NAAT QUANT STAT 01/03/2019 7:05 PM CDT HIV-1 HIV-2 ANTIGEN/ANTIBODY STAT 01/03/2019 7:05 PM CDT from Last 3 Months or Most Recently Relevant to Health Maintenance Results * (ABNORMAL) BASIC METABOLIC PANEL (CALCIUM TOTAL) (01/05/2019 2:32 AM CDT) BUN 14 7 - 26 mg/dL 01/05/2019 3:43 AM [facility] Creatinine 0.9 0.6 - 1.2 mg/dL 01/05/2019 3:43 AM [facility] Sodium 139 136 - 145 mmol/L 01/05/2019 3:43 AM [facility] Potassium 3.8 3.5 - 4.5 mmol/L 01/05/2019 3:43 AM [facility] Chloride 106 98 - 107 mmol/L 01/05/2019 3:43 AM [facility] CO2 24 22 - 29 mmol/L [facility]ucose 118(H) 70 - 115 mg/dL 01/05/2019 [...] - CHEMISTRY ESSENCE GRAFF Performing Organization Address [place]/ZIP Co de Phone Number [address] [phone] * HIV-1 HIV-2 ANTIGEN/ANTIBODY (01/03/2019 7:05 PM CDT) Pathologist [facility] HIV Antigen/Antibod y 1 & 2 Non-reacti ve Non-react denia 01/03/2019 7:49 PM CDT [facility] Comment: Neither HIV-1 p24 Antigen nor HIV-1/HIV-2 Antibodies are detected. Blood BLOOD SPECIMEN / Unknown Venipuncture / Unknown 01/03/2019 7:05 PM CDT 01/03/2019 7:06 PM CDT Glenn Silver MD LAB - HEMATOLOGY UTE QUIÑONEZ Performing Organization Address [place]/[place] [address], [facility] [phone] * HEPATITIS C AB SCREEN RFLX NAAT QUANT (01/03/2019 7:05 PM CDT) Hepatitis C Antibody Non-react denia Non-reac tive 01/03/2019 7:49 PM CDT [facility] Comment: Hepatitis C Antibody screen indicates no [...] Silver MD LAB - CHEMISTRY ESSENCE GRAFF [facility] Organization Address City/State/ZIP Co de Phone Number [address] [phone] from Last 3 Months or Most Recently Relevant to Health Maintenance Advance Directives Documents on File Type Date Recorded 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
--- OUTSIDE RECORDS SUMMARY | 2024-07-26 16:17 | XMS_ITS | Referral Summary ---
Author Organization [facility] Address [address] [place] [address] Care Team Providers Care Wire Welder Name Role Phone Chencho Sosa MD Primary Care Provider [phone] Source Comments [facility],non-owned Affiliates and Associated Physician Practices is amultiple site organization consisting of ambulatory clinics and hospital sitesin [place], [place], [place]. This disclosure is being madepursuant to the Care Everywhere program and may not contain all information available regarding this patient. 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 No 01/04/2019 Is person blind or have serious difficulty seein g? No 01/04/2019 Does person have serious dif ficulty walking/climbing stairs? No 01/04/2019 Does person have difficulty dressing/bathing? No 01/04/2019 Does person have difficulty doing errands alone? No 01/04/2019 Cognitive Status Response Date of Assessm ent Does person have difficulty concentrating/remembering/making decisions? No 01/04/2019 Plan of Treatment Not on file Goals Goal Patient Goal Type Associated Problems [...] 7 - 26 mg/dL 01/05/2019 3:43 AM [facility] Creatinine 0.9 0.6 - 1.2 mg/dL 01/05/2019 3:43 AM [facility] Sodium 139 136 - 145 mmol/L 01/05/2019 3:43 AM [facility] Potassium 3.8 3.5 - 4.5 mmol/L 01/05/2019 3:43 AM [facility] Chloride 106 98 - 107 mmol/L 01/05/2019 3:43 AM [facility] CO2 24 22 - 29 mmol/L 01/05/2019 3:43 AM [facility] Glucose 118(H) 70 - 115 mg/dL 01/05/2019 3:43 AM [facility] Calcium 8.1(L) 8.4 - 10.2 mg/dL 01/05/2019 3:43 AM [facility] Anion Gap 13 8 - 18 01/05/2019 3:43 AM [facility] BUN/Creatinine Ratio 16 7 - 23 01/05/2019 3:43 AM [facility] Osmolality Calculated 290 270 - 300 mOsm/kg 01/05/2019 3:43 AM [facility] eGFR >60 >60 mL/min/1.7 3 m2 01/05/2019 3:43 AM [facility] Blood BLOOD SPECIMEN / Unknown Lab Venipuncture / Unknown 01/05/2019 2:32 AM CDT 01/05/2019 3:15 AM CDT Juanpablo-Chaparro Quigley MD LAB - CHEMISTRY [facility] Organization Address City/State/ZIP Co de Phone Number [address] [phone] * HIV-1 HIV-2 ANTIGEN/ANTIBODY (01/03/2019 7:05 PM CDT) HIV Antigen/Antibod y 1 & 2 Non-reacti ve Non-react denia 01/03/2019 7:49 PM CDT [facility] Comment: Neither HIV-1 p24 Antigen nor HIV-1/HIV-2 Antibodies are detected. Blood BLOOD SPECIMEN / Unknown Venipuncture / Unknown 01/03/2019 7:05 PM CDT 01/03/2019 7:06 PM CDT Glenn Silver MD LAB - HEMATOLOGY ORD KHANG Performing Organization Address City/[facility] Co de Phone Number [address] [phone] * HEPATITIS C AB SCREEN RFLX NAAT QUANT (01/03/2019 7:05 PM CDT) Pathologist [facility] Hepatitis C Antibody Non-react denia Non-reac tive 01/03/2019 7:49 PM CDT [facility] Comment: Hepatitis C Antibody screen indicates [...] CDT Glenn Silver MD LAB - CHEMISTRY ORDMicheline GRAFF [address] [phone] from Last 3 Months or Most Recently Relevant to Health Maintenance Advance Directives Documents on File Type Date Recorded Patient Scrap Iron Loader Expl 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
--- OUTSIDE RECORDS SUMMARY | 2024-07-26 16:17 | XMS_ITS | Referral Summary ---
Author Organization [facility] Address [address] [place] [address] Care Team Providers Care Director Of Student Services Name Role Phone Chencho Sosa MD Primary Care Provider Jett Clement MD Unavailable [phone] Allergies Active Allergy Reactions Criticality Noted Date Comments Lisinopril Dizziness Low 10/31/2021 Medications isosorbide mononitrate ER (IMDUR) 30 mg 24 hr tablet Take 1 tablet (30 mg total) by mouth daily 05/22/2020 Active metoprolol XL (TOPROL-XL) 25 mg extended release tablet 05/22/2020 Acti ve aspirin 81 mg enteric coated tablet Take 1 tablet (81 mg total) by mouth daily Active oxybutynin XL (DITROPAN-XL) 10 mg 24 hr tablet 11/17/2021 Act denia omeprazole (PriLOSEC) 20 mg capsule Take 20 mg by mouth daily 02/06/2022 Active rosuvastatin (CRESTOR) 40 mg tablet 02/04/2022 Active biotin 10 mg tablet Take 1 tablet (10 mg total) by mouth daily 12/19/2022 Active furosemide (LASIX) 20 mg tablet Take 1 tablet (20 mg total) by mouth every morning Active Active Problems Problem Noted Date Diagnosed Date 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 06/08/2020 Immunizations Immunization Administration Dates Next Due Influenza, Quadrivalent, Romi l Culture-based MDCK, Preservative Free, Antibiotic Free, Intramuscular 05/13/2021 Influenza, Quadrivalent, Spl it, Intramuscular 03/04/2019 Influenza, Quadrivalent, Spl it, Preservative Free, Intramuscular 03/04/2019,04/04/2018 Influenza, Trivalent, IM (MDV) 05/22/2015,2012 Influenza, Unspecified 04/04/2018,05/22/2015, Tdap 01/03/2019,01/16/2013 ZOSTER Recombinant 01/03/2022,10/18/2021 Social History Tobacco Use Types Packs/Day Years Used Date Smoking Tobacco: Never Smokeless Tobacco: Never Tobacco Cessation:Counseling Given: Not Answered Alcohol Use Standard Drinks/Week Comments Not Currently 0 (1 standard drink = 0.6 oz pur e alcohol) Personal Safety Answer Date Recorded Getting School Help Needed Not on file 06/05 Sex and Gender Information Value Date Recorded Sex Assigned at Not on file Legal Sex Male 9:35 AM CDT Gender Identity Not on file Sexual Orientation Not on file Last Filed Vital Signs Vital Sign Reading Time Taken Comments Blood Pressure 128/82 07/16/2023 9:57 AM EDUCATION AND TRAINING COORDINATOR Pulse 64 07/16/2023 9:57 AM EDUCATION AND TRAINING COORDINATOR Temperature 36.2 C (97.1 F) 03/27/2022 1:35 PM CDT Respiratory Rate 20 02/13/2022 9:13 AM CDT Oxygen Saturation 95% 02/13/2022 9:1 3 AM CDT Inhaled Oxygen Concentration - - Weight 131.5 kg (290 lb) 07/16/2023 9:5 7 AM EDUCATION AND TRAINING COORDINATOR pt gave weight Height 177.8 cm (5' 10 ) 07/16/2023 9:5 7 AM EDUCATION AND TRAINING COORDINATOR Body Mass Index 41.61 07/16/2023 9:57 AM EDUCATION AND TRAINING COORDINATOR Plan of Treatment Not on file Insurance [facility]IC[facility] Care Teams Director Of Student Services Relationship Specialty Start Date End Date Chencho Sosa MD [address] [address] PCP - General Family Medicine 03/31/20 Jett Clement MD [address] [place] [address] Referring Physician Neurology 11/07/21
--- OUTSIDE RECORDS SUMMARY | 2024-07-26 16:17 | XMS_ITS | Encounter Summary ---
Author Organization [facility] Address [facility] [place] [address] Care Team Providers Care Electrical Instrument Technician Name Role Phone Chencho Sosa MD Primary Care Provider [phone] Wendy Trevino MD Unavailable [phone] Encounter Details Date Type Department Care Team (Late Contact Info) Description 03/05/2019 [facility], [address] [place] [address] Den Fisher MA Social History Tobacco Use Types Packs/Day Years Used Date Smoking Tobacco: Never Smokeless Tobacco: Never Alcohol Use Standard Drinks/Week Comments No 0 (1 standard drink = 0.6 oz pur e alcohol) AUDIT-C Answer Date Recorded Frequency of Alcohol Consumption Never 03/11/2018 Average Number of Drinks Not on file 018 Frequency of Binge Drinking Not on file 07/2017 Sex and Gender Information Value Date Recorded Sex Assigned at Not on file Legal Sex Male 12:01 PM CDT Gender Identity Not on file Sexual Orientation Straight 06/02/2021 8: 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 [facility], [address] [place] [address] Autumn Lima PA-C [address] [facility], [address] [place] [address] documented as of this encounter Procedures Procedure Name Priority Date/Time Associated Diagnosis Comments LIPID PANEL Routine 05/23/2021 CBC (OUTSIDE LAB) Routine 04/26/2021 COMPREHENSIVE METABOLIC PANEL Routine 04/26/2021 LIPID PANEL Routine 04/26/2021 VITAMIN B-12 Routine 10/12/2020 COMPREHENSIVE METABOLIC PANEL Routine 10/12/2020 FOLIC ACID SERUM Routine 10/12/2020 THYROID STIM HORMONE TSH Routine 10/12/2020 CBC (OUTSIDE LAB) Routine 04/21/2020 PROSTATE SPECIFIC ANTIGEN,TOTAL Routine 04/21/2020 COMPREHENSIVE METABOLIC PANEL Routine 04/21/2020 LIPID PANEL Routine 04/21/2020 THYROID STIM HORMONE TSH Routine 04/21/2020 LIPID PANEL Routine 03/04/2019 documented in this encounter Results * LIPID PANEL (05/23/2021) [facility] CHOLESTEROL 150 HDL 54 TRIGLYCERIDES 87 NON HDL CHOLESTEROL 96 LDL (CALCULATED) 79 05/23/2021 [facility] Final Result * CBC (OUTSIDE LAB) (04/26/2021) [facility] WBC 8.4 HGB 14.7 HCT 45.7 PLT 287 04/26/2021 [facility]-OUTSIDE/ABSTRACTED Final Result * LIPID PANEL (04/26/2021) [facility] CHOLESTEROL 158 HDL 39 TRIGLYCERIDES 105 DIRECT LDL 98 04/26/2021 [facility] Final Result * COMPREHENSIVE METABOLIC PANEL (04/26/2021) [facility] SODIUM S/P/B 135 137 - 145 POTASSIUM S/P/B 3.9 CO2 21 CHLORIDE S/P/B 102 GLUCOSE 130 mg/dL CALCIUM S/P/B 8.7 BUN 22 CREATININE S/P/B 1.0 0.7 - 1.3 EGFR NON-AFR. AMER. >60 <=90 ALKALINE PHOSPHATASE S/P/B 110 ALT 35 AST 29 BILIRUBIN TOTAL S/P/B 0.8 ALBUMIN S/P/B 4.5 3.5 - 5.0 TOTAL PROTEIN S/P/B 7.0 04/26/2021 [facility] Edited Resul t - Final * THYROID STIM HORMONE, TSH (10/12/2020) [facility] TSH 1.020 10/12/2020 [facility] Final Result * FOLIC ACID SERUM (10/12/2020) FOLATE 10.0 10/12/2020 [facility] Final Result * VITAMIN B-12 (10/12/2020) Pathologist [facility] VITAMIN B12 S/P/B 348 10/12/2020 us Doc [facility] Final Result * COMPREHENSIVE METABOLIC PANEL (10/12/2020) Pathologist [facility] SODIUM S/P/B 142 POTASSIUM S/P/B 4.0 CO2 26 CHLORIDE S/P/B 108 GLUCOSE 152 mg/dL CALCIUM S/P/B 9.3 BUN 12 CREATININE S/P/B 1.20 0.7 - 1.3 EGFR NON-AFR. AMER. >60 <=90 ALKALINE PHOSPHATASE S/P/B 102 ALT 27 AST 29 BILIRUBIN TOTAL S/P/B 0.8 ALBUMIN S/P/B 4.3 3.5 - 5.0 TOTAL PROTEIN S/P/B 7.0 10/12/2020 us Doc [facility] Final Result * PROSTATE SPECIFIC ANTIGEN,TOTAL (04/21/2020) Pathologist [facility] PSA 1.1 04/21/2020 us Doc [facility] Final Result * CBC (OUTSIDE LAB) (04/21/2020) Pathologist [facility] WBC 7.6 HGB 15.4 HCT 45.9 PLT 294 04/21/2020 us Doc [facility]TSIDE/ABSTRACTED Final Result * THYROID STIM HORMONE, TSH (04/21/2020) Pathologist [facility] TSH 1.36 04/21/2020 us Doc [facility] Final Result * COMPREHENSIVE METABOLIC PANEL (04/21/2020) SODIUM S/P/B 141 POTASSIUM S/P/B 4.3 CO2 27 CHLORIDE S/P/B 104 GLUCOSE 109 mg/dL CALCIUM S/P/B 9.8 BUN 14 CREATININE S/P/B 1.23 0.7 - 1.3 EGFR AFR. AMER. 76 <=90 EGFR NON-AFR. AMER. 66 <=90 ALKALINE PHOSPHATASE S/P/B 111 ALT 25 AST 19 BILIRUBIN TOTAL S/P/B 0.9 ALBUMIN S/P/B 4.5 3.5 - 5.0 TOTAL PROTEIN S/P/B 7.2 GLOBULIN 4.5 04/21/2020 [facility] Doc [facility] Final Result * LIPID PANEL (04/21/2020) CHOLESTEROL 166 HDL 49 TRIGLYCERIDES 99 NON HDL CHOLESTEROL 117 LDL (CALCULATED) 98 04/21/2020 us Doc [facility] Final Result * LIPID PANEL (03/04/2019) CHOLESTEROL 130 HDL 47 TRIGLYCERIDES 88 NON HDL CHOLESTEROL 83 LDL (CALCULATED) 66 03/04/2019 us Doc [facility] Final Result documented in this encounter Visit Diagnoses Not on filedocumented in this encounter Care Teams Electrical Instrument Technician Relationship Specialty Start Date End Date Chencho Sosa MD [address] [place] [address] PCP - General FAMILY PRACTICE 03/11/18 Wendy Trevino MD Three [facility]. [facility] [address] [place] [address] [place] Vice President Regulatory INTERVENTIONAL CARDIOLOGY 04/02/18 documented as of this encounter
--- OUTSIDE RECORDS SUMMARY | 2024-07-26 16:17 | XMS_ITS | Continuity of Care Document ---
Author Organization [email or web address] [place] Address [address] [place] [address] [address] [place] [address] Phone Care Team Providers Care Track Inspecting Supervisor Name Role Phone Adriano Cole Unavailable Unavailable Procedures Procedure Date Therapeutic Activities Therapeutic Exercise Neuromuscular Re-Ed Hot or Cold Pack Therapeutic Activities Neuromuscular Re-Ed Hot or Cold Pack Therapeutic Exercise Therapeutic Activities Therapeutic Exercise Neuromuscular Re-Ed Therapeutic Activities Hot or Cold Pack Neuromuscular Re-Ed Therapeutic Exercise Therapeutic Exercise Neuromuscular Re-Ed Hot or Cold Pack Therapeutic Activities Therapeutic Activities Neuromuscular Re-Ed Hot or Cold Pack Therapeutic Exercise Therapeutic Activities Neuromuscular Re-Ed Therapeutic Exercise Hot or Cold Pack Therapeutic Activities Neuromuscular Re-Ed Therapeutic Exercise Hot or Cold Pack Progress Note Therapeutic Activities Neuromuscular Re-Ed Therapeutic Exercise Hot or Cold Pack Therapeutic Activities Neuromuscular Re-Ed Therapeutic Exercise Hot or Cold Pack Therapeutic Activities Hot or Cold Pack Neuromuscular Re-Ed Therapeutic Exercise Neuromuscular Re-Ed Hot or Cold Pack Therapeutic Exercise Therapeutic Activities Therapeutic Activities Neuromuscular Re-Ed Therapeutic Exercise Hot or Cold Pack Neuromuscular Re-Ed Therapeutic Activities Therapeutic Exercise Therapeutic Activities Neuromuscular Re-Ed Hot or Cold Pack Therapeutic Exercise Neuromuscular Re-Ed Therapeutic Activities Therapeutic Exercise Hot or Cold Pack Hot or Cold Pack Therapeutic Activities Therapeutic Exercise Neuromuscular Re-Ed Therapeutic Activities Neuromuscular Re-Ed Manual Therapy Therapeutic Exercise Hot or Cold Pack Therapeutic Activities Neuromuscular Re-Ed Therapeutic Exercise Hot or Cold Pack Manual Therapy Progress Note Neuromuscular Re-Ed Therapeutic Exercise Therapeutic Activities Hot or Cold Pack Manual Therapy Hot or Cold Pack Manual Therapy Therapeutic Exercise Therapeutic Activities Neuromuscular Re-Ed Neuromuscular Re-Ed Manual Therapy Therapeutic Activities Therapeutic Exercise Hot or Cold Pack Therapeutic Activities Neuromuscular Re-Ed Therapeutic Exercise Manual Therapy Hot or Cold Pack Therapeutic Activities Neuromuscular Re-Ed Therapeutic Exercise Manual Therapy Hot or Cold Pack Neuromuscular Re-Ed Manual Therapy Therapeutic Activities Therapeutic Exercise Hot or Cold Pack Therapeutic Activities Manual Therapy Hot or Cold Pack Therapeutic Exercise Neuromuscular Re-Ed Therapeutic Exercise Neuromuscular Re-Ed Therapeutic Activities Electrical Stimulation Hot or Cold Pack Therapeutic Activities Neuromuscular Re-Ed Therapeutic Exercise Manual Therapy Hot or Cold Pack Electrical Stimulation Therapeutic Activities Neuromuscular Re-Ed Therapeutic Exercise PT Evaluation Moderate Complexity Therapeutic Exercise Neuromuscular Re-Ed Advance Directives Directive Yes / No Effective Date File Name No Information Encounters Encounter Description Practice Location Reason(s) For Visit Diagnoses Date Provider Providers Copied on Encounter [facility], [id number], tel:[phone] [place] No Information 1 Syncing.[place]. [address] [facility], [address], [place], [address], [place]. tel:[phone] Referring Provider: Chencho Sosa [address] [facility] [address], [place], [address]. tel:[phone] [facility] [address], [place], [place], [id number], tel:[phone] [place] No Information 1 Antony Oh. [address] [facility], [address], [place], [place], [facility], [place]. tel:[phone] Referring Provider: Chencho Sosa [address] [place] [address] [address], [place], [address]. tel:[phone] [address], [place], [place], [id number], [place] tel:[phone] [place] No Information 1 Antony Oh. [address] [place] [address], [address], [place], [facility], [place]. tel:[phone] Referring Provider: Alexander Mcclain[address] [place] [address] [address], [place], [address]. tel:[phone] [place] [address], [place], [place], [address], [place] tel:[phone] [place] No Information 1 Antony Oh. [address] [place] [address], [address], [place], [facility], [place]. tel:[phone] Referring Provider: Alexander Mcclain[address] [place] [address] [address], [place], [address]. tel:[phone] [address], [place], [address], [place] tel:[phone] [place] No Information 1 Antony Oh. [address] [place] [address], [address], [place], [address], [place]. tel:[phone] Referring Provider: Chencho Sosa [address] [place] [address] [address], [place], [address]. tel:[phone], [place], [id number], [place] tel:[phone] [place] No Information 1 Antony Oh. [address] [place] [address], [address], [place], [address], [place]. tel:[phone] Referring Provider: Alexander Mcclain[address] [place] [address] [address], [place], [address]. tel:[phone] [address], [place], [address], [place] tel:[phone] [place] No Information 1 Muehl Adriano. [address] [place] [address], [address], [place], [facility], [place]. tel:[phone] Referring Provider: Chencho Sosa [address] [place] [address] [address], [place], [address]. tel:[phone] [address], [place], [id number], tel:[phone] [place] No Information 1 Muehl Adriano. [address] [place] [address], [address], [place], [facility], [place]. tel:[phone] Referring Provider: Chencho Sosa [address] [place] [address] [address], [place], [address]. tel:[phone] [address], [place], [address], [place] tel:[phone] [place] No Information 1 Muehl Adriano. [address] [place] [address], [address], [place], [facility], [place]. tel:[phone] Referring Provider: Rich Mcclain [facility] [address], [place], [address]. tel:[phone] [address], [place], [id number], [place] tel:[phone] [place] No Information 1 Muehl Adriano. [address] [place] [address], [address], [place], [address], [place]. tel:[phone] Referring Provider: Alexander Mcclain[address] [place] [address] [address], [place], [address]. tel:[phone] [facility] [address] [place] [address], [place], [address], [place] tel:[phone] [place] No Information 1 Yanely Johnsona. . Referring Provider: Chencho Sosa [address] [place] [address] [address], [place], [address]. tel:[phone], [place], [address], [place] tel:[phone] [place] No Information 1 Nipareshhomarilee Johnsona. . Referring Provider: Chencho Sosa [address] [place] [address] [address], [place], [facility]. tel:[phone] [facility] [address] [place] [address] [address], [place], [id number], [place] tel:[phone] [place] No Information [address] [place] [address], [address], [place], [facility], [place]. tel:[phone] Referring Provider: Chencho Sosa [address] [place] [address] [address], [place], [address]. tel:[phone], [place], [address], [place] tel:[phone] [place] No Information 1 Antony Oh. [address] [facility], [address], [place], [facility], [place]. tel:[phone] Referring Provider: Alexander Mcclain[address] [place] [address] [address], [place], [address]. tel:[phone], [place], [id number], [place] tel:[phone] [place] No Information 1 Antony [place]. [address] [facility], [address], [place], [facility], [place]. tel:[phone] Referring Provider: Alexander Mcclain[address] [place] [address] [address], [place], [address]. tel:[phone] [address], [place], [place], [address], tel:[phone] [place] No Information Singh-0 4- 1 Muehl Adriano. [address] [place] [address], [address], [place], [facility], [place]. tel:[phone] Referring Provider: Chencho Sosa [address] [place] [address] [address], [place], [address]. tel:[phone] [address], [place], [address], [place] tel:[phone] [place] No Information Dec-3 1-202 0 Muehl Adriano. [address] [place] [address], [address], [place], [facility], [place]. tel:[phone] Referring Provider: Chencho Sosa [address] [place] [address] [address], [place], [address]. tel:[phone] [address], [place], [address], [place] tel:[phone] [place] No Information Dec-2 9-202 0 Muehl Adriano. [address] [place] [address], [address], [place], [facility], [place]. tel:[phone] Referring Provider: Chencho Sosa [address] [place] [address] [address], [place], [address]. tel:[phone] [address], [place], [place], [address], [place] tel:[phone] [place] No Information Dec-2 3-202 0 Muehl Adriano. [address] [place] [address], [address], [place], [facility], [place]. tel:[phone] Referring Provider: Chencho Sosa [address] [place] [address] [address], [place], [address]. tel:[phone] [address], [place], [place], [address], tel:[phone] [place] No Information Dec-2 1-202 0 Muehl Adriano. [address] [place] [address], [address], [place], [facility], [place]. tel:[phone] Referring Provider: Chencho Sosa [address] [place] [address] [address], [place], [facility]. tel:[phone] [address], [place], [place], [address], tel:[phone] [place] No Information Dec-1 7-202 0 Muehl Adriano. [address] [place] [address], [address], [place], [facility], [place]. tel:[phone] Referring Provider: Chencho Sosa [address] [place] [address] [address], [place], [facility]. tel:[phone], [place], [address], tel:[phone] [place] No Information Dec-1 5-202 0 Muehl Adriano. [address] [place] [address], [address], [place], [facility], [place]. tel:[phone] Referring Provider: Chencho Sosa [address] [place] [address] [address], [place], [address]. tel:[phone], [address], tel:[phone] [place] No Information Dec-1 0-202 0 Muehl Adriano. [address] [facility], [address], [place], [facility], [place]. tel:[phone] Referring Provider: Chencho Sosa [address] [place] [address] [address], [place], [facility]. tel:[phone] [address], [place], [address], tel:[phone] [place] No Information Dec-0 8-202 0 Muehl Adriano. [address] [facility], [address], [place], [address], [place]. tel:[phone] Referring Provider: Chencho Sosa [address] [place] [address] [address], [place], [facility]. tel:[phone] [place], [place] [address], [place], [address], [place] tel:[phone] [place] No Information Dec-0 3-202 0 Muehl Adriano. [address] [place] [address], [address], [place], [facility], [place]. tel:[phone] Referring Provider: Chencho Sosa [address] [place] [address] [address], [place], [facility]. tel:[phone] [place], [place] [address], [place], [address], tel:[phone] [place] No Information Dec-0 1-202 0 Muehl Adriano. [address] [place] [address], [address], [place], [facility], [place]. tel:[phone] Referring Provider: Chencho Sosa [address] [place] [address] [address], [place], [facility]. tel:[phone] [place], [place] [address], [place], [address], [place] tel:[phone] [place] No Information Nov-2 7-202 0 Emmanuel Lwa . Referring Provider: Chencho Sosa [address] [place] [address] [address], [place], [facility]. tel:[phone] [address], [place], [address], [place] tel:[phone] [place] No Information Nov-2 4-202 0 Muehl Adriano. [address] [place] [address], [address], [place], [facility], [place]. tel:[phone] Referring Provider: Chencho Sosa [address] [place] [address] [address], [place], [facility]. tel:[phone], [address], tel:[phone] [place] No Information 0 Antony Oh. [address] [facility], [facility] [address] [address], . tel:[phone] Referring Provider: Chencho Sosa [address] [facility] [address], [place], [facility]. tel:[phone], [address], tel:[phone] [place] No Information 0 Antony Oh. [address] [facility], [address] [address], . tel:[phone] Referring Provider: Chencho Sosa [address] [facility] [address], [place], [facility]. tel:[phone] Family History Family Member Type Diagnosis Age At Onset No Information Payers Payer name Insurance type Covered libertarian ID Brea ramon(s) Mdetna CI [id number] Social History Type Description Quantity Date Captured Comments Sex Male Smoking Status No Information Chief Complaint And Reason For Visit No Information Reason For Referral Reason For Referral No Information History Of Present Illness Encounter Date Complaint History Of Prese nt Illness No Information Functional Status Date Functional Assessmen t No Information Instructions Date Instruction Additional Infor mejia Prescribed activity/exercise edu cation Related to Overweight Dietary needs education Related to Overweight Dietary needs education Related to Overweight Assessments Type Assessment Date No Information Patient Care Teams Name Effective Dates (start - stop) Status Members No Information
--- OUTSIDE RECORDS SUMMARY | 2024-07-26 16:17 | XMS_ITS | Clinical Summary ---
Author Organization [facility] Address [address] [place] [address] Care Team Providers Care Rn Clinical Appeals Name Role Phone Chencho Sosa MD Primary Care Provider Jett Clement MD Unavailable [phone] Allergies Active Allergy Reactions Criticality Noted Date [...] Unspecified 04/04/2018,05/22/2015, Tdap 01/03/2019,01/16/2013 ZOSTER Recombinant 01/03/2022,10/18/2021 Surgical History Surgery Date Site/Laterality Comments TONSILLECTOMY Family History Medical History Relation Name Comments Heart disease Father Diabetes Mother Diabetes Sister Relation Name Status Comments Father Mother Sister Social History Tobacco Use Types Packs/Day Years [...] on file Sexual Orientation Not on file Obstetrics History Last Filed Vital Signs Vital Sign Reading Time Taken Comments Blood Pressure 128/82 07/16/2023 9:57 AM PRINTER ASSISTANT Pulse 64 07/16/2023 9:57 AM PRINTER ASSISTANT Temperature 36.2 C (97.1 F) 03/27/2022 1:35 PM CDT Respiratory Rate 20 02/13/2022 9:13 AM CDT Oxygen Saturation 95% 02/13/2022 9:1 3 AM CDT Inhaled Oxygen Concentration - - Weight 131.5 kg (290 lb) 07/16/2023 9:5 7 AM PRINTER ASSISTANT pt gave weight Height 177.8 cm (5' 10 ) 07/16/2023 9:5 7 AM PRINTER ASSISTANT Body Mass Index 41.61 07/16/2023 9:57 AM PRINTER ASSISTANT Plan of Treatment Health Maintenance Due Date Last Done Comments Colon Cancer Screening-Colonoscopy 1965 Depression Screening 1965 Hepatitis C Screening 1965 Prostate Cancer Screening-PSA 1965 Hepatitis B Screening 1983 Regular Well Visit/Exam 18-64 1983 Covid-19 Vaccine ( season) 2024 05/13/2021, 10/15/2020 Influenza Vaccine (#1) 2024 , 04/10/2021, 04/10/2019, Additional history exists DTaP/Tdap/Td Vaccine (4 - Td or Tdap) 07/05/2031 07/05/2021, 01/03/2019, 01/16/2013 Zoster Vaccine Completed 01/03/2022, 10/18/2021 Pneumococcal vaccine <65 Aged Out No longer eligible based on patient's age to complete this topic Insurance MEDIC[employer] [facility] MED[facility] Address: [address] [address] [place] [address] [facility] Address: [facility] [address] [place] [address] Care Teams Rn Clinical Appeals Relationship Specialty Start Date End Date Chencho Sosa MD [address] [place] [address] PCP - General Family Medicine 03/31/20 Jett Clement MD [address] [place] [address] Referring Physician Neurology 11/07/21
--- OUTSIDE RECORDS SUMMARY | 2024-07-26 16:17 | XMS_ITS | Encounter Summary ---
Author Organization [facility] Address [facility] [place] [address] Care Team Providers Care Gis Software Developer Name Role Phone Chencho Sosa MD Primary Care Provider [phone] Wendy Trevino MD Unavailable [phone] Encounter Details Date Type Department Care Team (Latest Contact Info) Description 02/25/2024 [facility] Message Enc [facility] - [facility] [address] [facility], [address] [place] [phone] Jett Clement MD [address] [place] [address] Tashi Esposito - [facility] Social History Tobacco Use Types Packs/Day Years [...] Sexual Orientation Straight 06/02/2021 8: 10 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 Jett Clement Sent: 02/25/2024 10:55 AM CDT Subject: Tashi Esposito - [facility] Dr. Garcia, This is Jayme Walden's sister. We have been trying to obtain scrips for PT and OT forKen to attend the [facility]. Apparently, the PT script went through but they have been unable to receive the OT script. The fax number is [phone], Attention: Patricia. Please advise wh en thishas been sent. I know the folks at the [facility] have also been trying to have the script sent as well. If it has been done, just let me know. Thank you in advance for your assistance. documented in this encounter Plan of Treatment Upcoming Encounters Date Type Department Care Team (Late st Contact Info) Description 08/17/2024 1:40 PM CDT Office Visit [facility] [address] [facility], [address] [place] [address] Jett Clement MD [address] [facility] [place] [address] 10/30/2024 2:00 PM CDT Office Visit [facility] [address] [facility], [address] [place] [address] Autumn Lima PA-C [address] [facility], [address] [place], [place] [id number] documented as of this encounter Goals Goal Patient Goal Type Associated Problems Recent Progress Patient-Stated? Author Health - patient able to perform ADLs independently General No Tori Garcia, SENIOR TABLEAU DEVELOPER documented as of this encounter Visit Diagnoses Not on filedocumented in this encounter Additional Health Concerns Assessment Noted Time PHQ-9 Depression Total Score: 0 08/30/19 22 2:43 PM CDT documented as of this encounter Care Teams Gis Software Developer Relationship Specialty Start Date End Date Chencho Sosa MD [address] [facility] [address] [place] [address] PCP - General FAMILY PRACTICE 03/11/18 Wendy Trevino MD [address] [facility]. [address] [place], [place] [address] Bath Fixed Interest Dealer INTERVENTIONAL CARDIOLOGY 04/02/18 documented as of this encounter
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
--- NOTE | 2024-07-26 18:49 | ECG_ITS ---
Test Date: 2024-07-26 19:21:42 Measurements Intervals [place] Rate: 85 P: 20 NM: 136 QRS: -15 QRSD: 94 T: 30 QT: 321 QTc: 382 Interpretive Statements SINUS RHYTHM DELAYED PRECORDIAL R/S TRANSITION BASELINE ARTIFACT- I, II, AVR, AVL, V1-V3 BORDERLINE ECG Compared to ECG 03/13/2024 18:32:11 No significant changes Electronically Signed On 07-27-2024 07:07:37 HYDRODYNAMICS TEACHER by Franko Carey D.O.
--- OUTSIDE RECORDS SUMMARY | 2024-07-26 18:49 | XMS_ITS | Continuity of Care Document ---
Author Organization [facility] Address [address] [place] [address] [address] [place] [address] Phone Care Team Providers Care Supervisor Boarding Name Role Phone Adriano Cole Unavailable Unavailable Procedures Procedure Date Therapeutic Activities Neuromuscular Re-Ed Therapeutic Exercise Hot or Cold Pack Therapeutic Activities Neuromuscular Re-Ed Hot or Cold Pack Therapeutic Exercise Therapeutic Activities Therapeutic Exercise Neuromuscular Re-Ed Neuromuscular Re-Ed Hot or Cold Pack Therapeutic Activities Therapeutic Exercise Therapeutic Exercise Hot or Cold Pack Therapeutic Activities Neuromuscular Re-Ed Therapeutic Activities Neuromuscular Re-Ed Hot or Cold Pack Therapeutic Exercise Therapeutic Activities Neuromuscular Re-Ed Hot or Cold Pack Therapeutic Exercise Therapeutic Activities Neuromuscular Re-Ed Therapeutic Exercise Hot or Cold Pack Therapeutic Activities Progress Note Neuromuscular Re-Ed Therapeutic Exercise Hot or Cold Pack Therapeutic Activities Therapeutic Exercise Hot or Cold Pack Neuromuscular Re-Ed Neuromuscular Re-Ed Therapeutic Activities Hot or Cold Pack Therapeutic Exercise Hot or Cold Pack Therapeutic Activities Neuromuscular Re-Ed Therapeutic Exercise Therapeutic Activities Neuromuscular Re-Ed Hot or Cold Pack Therapeutic Exercise Therapeutic Activities Neuromuscular Re-Ed Therapeutic Exercise Therapeutic Activities Hot or Cold Pack Therapeutic Exercise Neuromuscular Re-Ed Neuromuscular Re-Ed Therapeutic Activities Hot or Cold Pack Therapeutic Exercise Therapeutic Exercise Hot or Cold Pack Therapeutic Activities Neuromuscular Re-Ed Therapeutic Activities Neuromuscular Re-Ed Hot or Cold Pack Manual Therapy Therapeutic Exercise Therapeutic Activities Neuromuscular Re-Ed Therapeutic Exercise Manual Therapy Hot or Cold Pack Neuromuscular Re-Ed Therapeutic Activities Therapeutic Exercise Progress Note Hot or Cold Pack Manual Therapy Therapeutic Activities Manual Therapy Therapeutic Exercise Hot or Cold Pack Neuromuscular Re-Ed Neuromuscular Re-Ed Hot or Cold Pack Therapeutic Exercise Therapeutic Activities Manual Therapy Therapeutic Activities Neuromuscular Re-Ed Therapeutic Exercise Manual Therapy Hot or Cold Pack Therapeutic Activities Neuromuscular Re-Ed Therapeutic Exercise Manual Therapy Hot or Cold Pack Therapeutic Activities Manual Therapy Neuromuscular Re-Ed Therapeutic Exercise Hot or Cold Pack Therapeutic Activities Manual Therapy Hot or Cold Pack Neuromuscular Re-Ed Therapeutic Exercise Therapeutic Activities Therapeutic Exercise Neuromuscular Re-Ed Electrical Stimulation Hot or Cold Pack Therapeutic Activities Neuromuscular Re-Ed Therapeutic Exercise Manual Therapy Electrical Stimulation Hot or Cold Pack Therapeutic Activities Therapeutic Exercise Neuromuscular Re-Ed PT Evaluation Moderate Complexity Therapeutic Exercise Neuromuscular Re-Ed Advance Directives Directive Yes / No Effective Date File Name No Information Encounters Encounter Description Practice Location Reason(s) For Visit Diagnoses Date Provider Providers Copied on Encounter [facility], [id number], tel:[phone] [place] No Information 1 [place] [address] [facility] ([place], [place]), [address], [place], [address], [place]. tel:[phone] Referring Provider: Chencho Sosa [address] [facility] [address], [place], [address]. tel:[phone] [facility] [address], [place], [place], [id number], tel:[phone] [place] No Information [address] [facility] ([place], [place]), [address], [place], [place], [facility], [place]. tel:[phone] Referring Provider: Chencho Sosa [address] [place] [address] [address], [place], [address]. tel:[phone] [address], [place], [place], [address], [place] tel:[phone] [place] No Information 1 Antony Oh. [address] [place] [address], [address], [place], [facility], [place]. tel:[phone] Referring Provider: Alexander Mcclain[address] [place] [address] [address], [place], [address]. tel:[phone] [address] [place] [address], [place], [place], [address], [place] tel:[phone] [place] No Information 1 Antony Oh. [address] [place] [address], [address], [place], [place], [facility], [place]. tel:[phone] Referring Provider: Alexander Mcclain[address] [place] [address] [address], [place], [address]. tel:[phone] [address], [place], [place], [address], [place] tel:[phone] [place] No Information 1 Antony Oh. [address] [place] [address], [address], [place], [address], [place]. tel:[phone] Referring Provider: Chencho Sosa [address] [place] [address] [address], [place], [address]. tel:[phone], [place], [address], [place] tel:[phone] [place] No Information 1 Antony Oh. [address] [place] [address], [address], [place], [address], [place]. tel:[phone] Referring Provider: Alexander Mcclain[address] [place] [address] [address], [place], [address]. tel:[phone] [address], [place], [place], [address], [place] tel:[phone] [place] No Information 1 Muehl Adriano. [address] [place] [address], [address], [place], [facility], [place]. tel:[phone] Referring Provider: Chencho Sosa [address] [place] [address] [address], [place], [address]. tel:[phone] [address], [place], [address], tel:[phone] [place] No Information 1 Muehl Adriano. [address] [place] [address], [address], [place], [facility], [place]. tel:[phone] Referring Provider: Chencho Sosa [address] [place] [address] [address], [place], [address]. tel:[phone] [address], [place], [address], [place] tel:[phone] [place] No Information 1 Muehl Adriano. [address] [place] [address], [address], [place], [facility], [place]. tel:[phone] Referring Provider: Rich Mcclain [facility] [address], [place], [address]. tel:[phone] [address], [place], [address], [place] tel:[phone] [place] No Information 1 Muehl Adriano. [address] [place] [address], [address], [place], [address], [place]. tel:[phone] Referring Provider: Alexander Mcclain[address] [place] [address] [address], [place], [address]. tel:[phone] [facility] [address] [place] [address], [place], [place], [address], [place] tel:[phone] [place] No Information 1 Yanely Johnsona. . Referring Provider: Chencho Sosa [address] [place] [address] [address], [place], [address]. tel:[phone], [place], [address], [place] tel:[phone] [place] No Information 1 Nipareshhomarilee Johnsona. . Referring Provider: Chencho Sosa [address] [place] [address] [address], [place], [facility]. tel:[phone] [facility] [address] [place] [address] [address], [place], [place], [address], [place] tel:[phone] [place] No Information [address] [place] [address], [address], [place], [facility], [place]. tel:[phone] Referring Provider: Chencho Sosa [address] [place] [address] [address], [place], [address]. tel:[phone], [place], [address], [place] tel:[phone] [place] No Information [address] [facility] ([place], [place]), [address], [place], [facility], [place]. tel:[phone] Referring Provider: Alexander Mcclain[address] [place] [address] [address], [place], [address]. tel:[phone], [place], [address], [place] tel:[phone] [place] No Information [address] [facility] ([place], [place]), [address], [place], [facility], [place]. tel:[phone] Referring Provider: Alexander Mcclain[address] [place] [address] [address], [place], [address]. tel:[phone] [address], [place], [place], [address], tel:[phone] [place] No Information Singh-0 4- 1 Muehl Adriano. [address] [place] [address], [address], [place], [facility], [place]. tel:[phone] Referring Provider: Chencho Sosa [address] [place] [address] [address], [place], [address]. tel:[phone] [address], [place], [address], [place] tel:[phone] [place] No Information Dec-3 1-202 0 Muehl Adriano. [address] [place] [address], [address], [place], [facility], [place]. tel:[phone] Referring Provider: Chencho Sosa [address] [place] [address] [address], [place], [address]. tel:[phone] [address], [place], [address], [place] tel:[phone] [place] No Information Dec-2 9-202 0 Muehl Adriano. [address] [place] [address], [address], [place], [facility], [place]. tel:[phone] Referring Provider: Chencho Sosa [address] [place] [address] [address], [place], [address]. tel:[phone] [address], [place], [place], [address], [place] tel:[phone] [place] No Information Dec-2 3-202 0 Muehl Adriano. [address] [place] [address], [address], [place], [facility], [place]. tel:[phone] Referring Provider: Chencho Sosa [address] [place] [address] [address], [place], [address]. tel:[phone] [address], [place], [place], [address], tel:[phone] [place] No Information Dec-2 1-202 0 Muehl Adriano. [address] [place] [address], [address], [place], [facility], [place]. tel:[phone] Referring Provider: Chencho Sosa [address] [place] [address] [address], [place], [facility]. tel:[phone] [address], [place], [place], [address], tel:[phone] [place] No Information Dec-1 7-202 0 Muehl Adriano. [address] [place] [address], [address], [place], [facility], [place]. tel:[phone] Referring Provider: Chencho Sosa [address] [place] [address] [address], [place], [facility]. tel:[phone], [place], [address], tel:[phone] [place] No Information Dec-1 5-202 0 Muehl Adriano. [address] [place] [address], [address], [place], [facility], [place]. tel:[phone] Referring Provider: Chencho Sosa [address] [place] [address] [address], [place], [address]. tel:[phone], [id number], tel:[phone] [place] No Information Dec-1 0-[address] [facility] ([place], [place]), [address], [place], [facility], [place]. tel:[phone] Referring Provider: Chencho Sosa [address] [place] [address] [address], [place], [facility]. tel:[phone] [address], [place], [address], tel:[phone] [place] No Information Dec-0 8-[address] [facility] ([place], [place]), [address], [place], [address], [place]. tel:[phone] Referring Provider: Chencho Sosa [address] [place] [address] [address], [place], [facility]. tel:[phone] [place], [place] [address], [place], [place], [address], [place] tel:[phone] [place] No Information Dec-0 3-202 0 Muehl Adriano. [address] [place] [address], [address], [place], [facility], [place]. tel:[phone] Referring Provider: Chencho Sosa [address] [place] [address] [address], [place], [facility]. tel:[phone] [place], [place] [address], [place], [place], [address], tel:[phone] [place] No Information Dec-0 1-202 0 Muehl Adriano. [address] [place] [address], [address], [place], [facility], [place]. tel:[phone] Referring Provider: Chencho Sosa [address] [place] [address] [address], [place], [facility]. tel:[phone] [place] [address], [place], [address], [place] tel:[phone] [place] No Information Nov-2 7-202 0 Emmanuel Law . Referring Provider: Chencho Sosa [address] [place] [address] [address], [place], [facility]. tel:[phone] [address], [place], [place], [address], [place] tel:[phone] [place] No Information Nov-2 4-202 0 Muehl Adriano. [address] [place] [address], [address], [place], [facility], [place]. tel:[phone] Referring Provider: Chencho Sosa [address] [place] [address] [address], [place], [facility]. tel:[phone], [address], tel:[phone] [place] No Information [address] [facility] ([place], [place]), [facility] [address] [address], . tel:[phone] Referring Provider: Chencho Sosa 68[address] [facility] [address], [place], [facility]. tel:[phone], [address], tel:[phone] [place] No Information [address] [facility] ([place], [place]), [address] [address], . tel:[phone] Referring Provider: Chencho Sosa [address] [facility] [address], [place], [facility]. tel:[phone] Family History Family Member Type Diagnosis Age At Onset No Information Payers Payer name Insurance type Covered constitution party ID Brea ramon(s) [employer] CI [id number] Social History Type Description Quantity Date Captured [...]
--- OUTSIDE RECORDS SUMMARY | 2024-07-26 18:49 | XMS_ITS | Encounter Summary ---
Author Organization [facility] Address [facility] [place] [address] Care Team Providers Care Cake Wringer Name Role Phone Chencho Sosa MD Primary Care Provider [phone] Wendy Trevino MD Unavailable [phone] Encounter Details Date Type Department Care Team (Latest Contact Info) Description 06/06/2023 Dreams[employer] Message Enc [facility] Multispecialty Care - [facility] [address] [facility], [address] [place] [address] Jett Clement MD [address] [place] [address] Jayme Esposito - Referral to 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 Occupation Industry Job Start Date Job End [...] - 06/06/2023 1:58 PM CST Please advise CHISE SALES MANAGER documented in this encounter Plan of Treatment Upcoming Encounters Date Type Department Care Team (Late st Contact Info) Description 08/17/2024 1:40 PM CDT Office Visit [facility] Multispecialty Care - [facility] [address] [facility], [address] [place] [address] Jett Clement MD [address] [place] [address] 10/30/2024 2:00 PM CDT Office Visit [facility], [address] [place] [address] Autumn Lima PA-C [address] [facility], [address] [place] [address] documented as of this encounter Goals Goal Patient Goal Type Associated Problems Recent Progress Patient-Stated? Author Health - patient able to perform ADLs independently General No Tori Garcia, METAL FURNITURE PANEL COVERER documented as of this encounter Visit Diagnoses Not on filedocumented in this encounter Additional Health Concerns Assessment Noted Time PHQ-9 Depression Total Score: 0 08/30/19 2:43 PM CDT documented as of this encounter Care Teams Cake Wringer Relationship Specialty Start Date End Date Chencho Sosa MD [address] [place] [address] PCP - General FAMILY PRACTICE 03/11/18 Wendy Trevino MD Three [facility]. [address] [place], [place] [address] [place] Animal Husbandry Worker INTERVENTIONAL CARDIOLOGY 04/02/18 documented as of this encounter
--- OUTSIDE RECORDS SUMMARY | 2024-07-26 18:50 | XMS_ITS | Encounter Summary ---
Author Organization [facility] Address [facility] [place] [address] Care Team Providers Care Cardiac Care Unit Nurse Name Role Phone Chencho Sosa MD Primary Care Provider [phone] Wendy Trevino MD Unavailable Encounter Details Date Type Department Care Team (Late Contact Info) Description 03/05/2019 [facility], [address] [place] [address] Den Fisher MA Social History [...] Sexual Orientation Straight 06/02/2021 8: 10 AM TUNNEL MUCKER Occupation Industry Job Start Date Job End Date Not on file Not on file Not on file Not on file documented as of this encounter Plan of Treatment Upcoming Encounters Date Type Department Care Team (Late Contact Info) Description 08/17/2024 1:40 PM CDT Office Visit [facility] Multispecialty Care - [address], [address] [place] [address] Jett Clement MD [address] [place] [address] 10/30/2024 2:00 PM CDT Office Visit [facility] THREE [facility], [address] [place] [address] Autumn Lima PA-C 3 [facility], [address] [place] [address] documented as of this encounter Procedures Procedure [...] this encounter Results * LIPID PANEL (05/23/2021) [facility] CHOLESTEROL 150 HDL 54 TRIGLYCERIDES 87 NON HDL CHOLESTEROL 96 LDL (CALCULATED) 79 05/23/2021 us Doc [facility] Final Result * CBC (OUTSIDE LAB) (04/26/2021) [facility] WBC 8.4 HGB 14.7 HCT 45.7 PLT 287 04/26/2021 us Doc [facility]-OUTSIDE/ABSTRACTED Final Result * LIPID PANEL (04/26/2021) [facility] CHOLESTEROL 158 HDL 39 TRIGLYCERIDES 105 DIRECT LDL 98 04/26/2021 us Doc [facility] Final Result * COMPREHENSIVE METABOLIC PANEL (04/26/2021) [facility] SODIUM S/P/B 135 137 - 145 POTASSIUM [...] Final * THYROID STIM HORMONE, TSH (10/12/2020) [facility] TSH 1.020 10/12/2020 us Doc [facility] Final Result * FOLIC ACID SERUM (10/12/2020) FOLATE 10.0 10/12/2020 us Doc [facility] Final Result * VITAMIN B-12 (10/12/2020) Pathologist [facility] VITAMIN B12 S/P/B 348 10/12/2020 us Doc [facility] Final Result * COMPREHENSIVE METABOLIC PANEL (10/12/2020) Pathologist [facility] SODIUM S/P/B 142 POTASSIUM S/P/B 4.0 CO2 [...] Result * PROSTATE SPECIFIC ANTIGEN,TOTAL (04/21/2020) Pathologist [facility] PSA 1.1 04/21/2020 us Doc [facility] Final Result * CBC (OUTSIDE LAB) (04/21/2020) Pathologist [facility] WBC 7.6 HGB 15.4 HCT 45.9 PLT 294 04/21/2020 us Doc [facility]-OUTSIDE/ABSTRACTED Final Result * THYROID STIM HORMONE, TSH (04/21/2020) Pathologist [facility] TSH 1.36 04/21/2020 us Doc [facility] [...] on filedocumented in this encounter Care Teams Cardiac Care Unit Nurse Relationship Specialty Start Date End Date Chencho Sosa MD [address] [place] [address] PCP - General FAMILY PRACTICE 03/11/18 Wendy Trevino MD Three [facility]. [facility] [address] [place] [address] [place] Telephone Lines Repairer INTERVENTIONAL CARDIOLOGY 04/02/18 documented as of this encounter
--- OUTSIDE RECORDS SUMMARY | 2024-07-26 18:50 | XMS_ITS | Clinical Summary ---
Author Organization [facility] Address [address] [place] [address] Care Team Providers Care Facilities And Grounds Director Name Role Phone Chencho Sosa MD Primary Care Provider Jett Clement MD Unavailable [phone] Allergies Active Allergy Reactions Criticality Noted Date [...] Comments Blood Pressure 128/82 07/16/2023 9:57 AM CARROT HARVESTER Pulse 64 07/16/2023 9:57 AM CARROT HARVESTER Temperature 36.2 C (97.1 F) 03/27/2022 1:35 PM CDT Respiratory Rate 20 02/13/2022 9:13 AM CDT Oxygen Saturation 95% 02/13/2022 9:1 3 AM CDT Inhaled Oxygen Concentration - - Weight 131.5 kg (290 lb) 07/16/2023 9:5 7 AM CARROT HARVESTER pt gave weight Height 177.8 cm (5' 10 ) 07/16/2023 9:5 7 AM CARROT HARVESTER Body Mass Index 41.61 07/16/2023 9:57 AM CARROT HARVESTER Plan of Treatment Health Maintenance Due Date [...] to complete this topic Insurance MEDICARE [facility] Address: [address] [address] [place] [address] [facility] Address: [facility] [address] [place] [address] Care Teams Facilities And Grounds Director Relationship Specialty Start Date End Date Chencho Sosa MD [address] [place] [address] PCP - General Family Medicine 03/31/20 Jett Clement MD [address] [place] [address] Referring Physician Neurology 11/07/21
--- OUTSIDE RECORDS SUMMARY | 2024-07-26 18:50 | XMS_ITS | Encounter Summary ---
Author Organization [facility] Address [facility] [place] [address] Care Team Providers Care Assembly Stock Supervisor Name Role Phone Chencho Sosa MD Primary Care Provider [phone] Wendy Trevino MD Unavailable [phone] Encounter Details Date Type Department Care Team (Latest Contact Info) Description 04/03/2024 Figure 8 Surgicalt Message Enc [facility] Medical Group Multispecialty Care - [facility] [address] [facility], [address] [place] [address] Jett Clement MD 3 [place], [place] [id number] Tashi Esposito - Physician Statement to be [...] Sexual Orientation Straight 06/02/2021 8: 10 AM CIGAR PACKER AND GRADER Occupation Industry Job Start Date Job End [...] Description 08/17/2024 1:40 PM CDT Office Visit [facility] Medical Group Multispecialty Care - [facility] [address] [facility], [address] [place] [id number] Jett Clement MD 3 [place] [address] 10/30/2024 2:00 PM CDT Office Visit [facility] THREE [facility], [address] [place] [address] Autumn Lima PA-C [address] [facility], [address] [place] [address] documented as of this encounter Goals Goal Patient Goal Type Associated Problems Recent Progress Patient-Stated? Author Health - patient able to perform ADLs independently General No Tori Garcia, CORRECTION OFFICER REFORMATORY documented as of this encounter Visit Diagnoses Not on filedocumented in this encounter Additional Health Concerns Assessment Noted Time PHQ-9 Depression Total Score: 0 08/30/19 2:43 PM CDT documented as of this encounter Care Teams Assembly Stock Supervisor Relationship Specialty Start Date End Date Chencho Sosa MD [address] [place] [address] PCP - General FAMILY PRACTICE 03/11/18 Wendy Trevino MD Three [facility]. [address] [place] [address] [place] Field Automobile Adjuster INTERVENTIONAL CARDIOLOGY 04/02/18 documented as of this encounter
--- OUTSIDE RECORDS SUMMARY | 2024-07-26 18:50 | XMS_ITS | Encounter Summary ---
Author Organization [facility] Address Replaced by [facility] [place] [address] Care Team Providers Care Rn Testing Name Role Phone Chnecho Sosa MD Primary Care Provider [phone] Wendy Trevino MD Unavailable [phone] Encounter Details Date Type Department Care Team (Latest Contact Info) Description 02/25/2024 [employer]t Message Enc [facility] Medical Group Multispecialty Care - [facility] [address] [facility], [address] [place] [phone] Jett Clement MD 3 [place] [address] Tashi Esposito - [facility] Social History Tobacco Use Types Packs/Day [...] Sexual Orientation Straight 06/02/2021 8: 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 Garcia, This is Jayme Walden's sister. We have been trying to obtain scrips for PT and OT forKen to attend [facility]. Apparently, the PT script went through but they have been unable to receive the OT script. The fax number is [phone], Attention: Patricia. Please advise wh en thishas been sent. I know the folks at the [facility] have also been trying to have the script sent as well. If it has been done, just let me know. Thank you in advance for your assistance. documented in this encounter Plan of Treatment Upcoming Encounters Date Type Department Care Team (Late st Contact Info) Description 08/17/2024 1:40 PM CDT Office Visit [facility] Medical Group Multispecialty Care - [facility] [address] [facility], [address] [place] [address] Jett Clement MD 3 [facility] [place] [address] 10/30/2024 2:00 PM CDT Office Visit [facility] THREE [facility], [address] [place] [address] Autumn Lima PA-C [address] [facility], [address] [place], [place] [id number] documented as of this encounter Goals Goal Patient Goal Type Associated Problems Recent Progress Patient-Stated? Author Health - patient able to perform ADLs independently General No Tori Garcia, HOSPICE EXECUTIVE DIRECTOR documented as of this encounter Visit Diagnoses Not on filedocumented in this encounter Additional Health Concerns Assessment Noted Time PHQ-9 Depression Total Score: 0 08/30/19 22 2:43 PM CDT documented as of this encounter Care Teams Rn Testing Relationship Specialty Start Date End Date Chencho Sosa MD [address] [facility] [address] [place] [address] PCP - General FAMILY PRACTICE 03/11/18 Wendy Trevino MD Three [facility]. [address] [place], [place] [phone] [place] Chartered Financial Analyst INTERVENTIONAL CARDIOLOGY 04/02/18 documented as of this encounter
--- OUTSIDE RECORDS SUMMARY | 2024-07-26 18:50 | XMS_ITS | Patient Health Summary ---
Author Organization [facility] Address [address] [place] [address] Care Team Providers Care Pole Tester Name Role Phone Chencho Sosa MD Primary Care Provider [phone] [facility],non-owned Affiliates and Associated Physician Practices is amultiple site organization consisting of ambulatory clinics and hospital sitesin [place], [place], [place] and [place]. This disclosure is being madepursuant to the Care Everywhere program and may not contain all information available regarding this patient. Last updated 18.[facility] Allergies No known active allergies Medications * [...] 108 kg (238 lb) 05/25/2019 8:52 AM PUBLIC SPEAKING COACH Height 177.8 cm (5' 10 ) 05/25/2019 8:52 AM PUBLIC SPEAKING COACH Body Mass Index 34.15 05/25/2019 8:52 AM PUBLIC SPEAKING COACH Procedures * XR CLAVICLE RIGHT 2VW(Performed 05/25/2019) [...] morphology, unspecified lumbar vertebral level, initial encounter ([facility]) * XR LUMBAR SPINE 2 OR 3VW(Performed 01/04/2019) Performed for Closed fracture of one rib of right side, initial encounter, Closed fracture of lumbar vertebra, unspecified fracture morphology, unspecified lumbar vertebral level, initial encounter ([facility]) * CT CHEST W CONTRAST(Performed 01/03/2019) Performed [...] XR CLAVICLE RIGHT 2VW (05/25/2019 8:50 AM PUBLIC SPEAKING COACH) Only the most recent of5 resultswithin the time period is included. Anatomical Region Laterality Modality Upper Extremity, Chest Radiograp hic Imaging 05/25/2019 12:4 1 PM PUBLIC SPEAKING COACH Impressions 05/25/2019 12:42 PM PUBLIC SPEAKING COACH IMPRESSION: Displaced clavicle fracture, healing and unchanged in alignment. Healing rib fractures. This report was electronically signed by RYAN HUTCHISON MD on 05/25/2019 12:42 PM . Narrative 05/25/2019 12:42 PM PUBLIC SPEAKING COACH Exam: XR CLAVICLE RIGHT 2VW History: S42.001D: [...] * CARDIAC EKG ORDER (05/18/2019 12:06 PM PUBLIC SPEAKING COACH) Narrative 05/18/2019 12:06 PM PUBLIC SPEAKING COACH Ordered by an unspecified provider. Scanned Document [...] CBC W AUTO DIFFERENTIAL (01/05/2019 2:32 AM [facility]) Only the most recent of3 resultswithin the time period is included. WBC 11.0(H) 3.5 - 10.5 10 3/uL 01/05/2019 3:20 AM [facility] RBC 3.96(L) 4.30 - 5.70 10 6/uL 01/05/2019 3:20 AM [facility] Hemoglobin 11.5(L) 13.5 - 17.5 g/dL 01/05/2019 3:20 AM [facility] Hematocrit 35.8(L) 39.0 - 50.0 % 01/05/2019 3:20 AM [facility] MCV 90.4 81.0 - 97.0 fL 01/05/2019 3:20 AM [facility] MCH 29.0 28.0 - 34.0 pg 01/05/2019 3:20 AM [facility] MCHC 32.1 32.0 - 36.0 g/dL 01/05/2019 3:20 AM [facility] Platelet Count 173 150 - 400 10 3/uL 01/05/2019 3:20 AM [facility] RDW-SD 43.9 36.0 - 50.0 fL 01/05/2019 3:20 AM [facility] RDW-CV 13.2 11.2 - 14.8 % 01/05/2019 3:20 AM [facility] MPV 11.3 9.3 - 12.8 fL 01/05/2019 3:20 AM [facility] nRBC Absolute 0.00 0 10 3/uL 01/05/2019 3:20 AM [facility] nRBC Auto 0.0 0 /100 WBC 01/05/2019 3:20 AM [facility] Neutrophils % 70.7(H) 35.0 - 70.0 % 01/05/2019 3:20 AM [facility] Lymphocytes % 14.9(L) 19.7 - 55.1 % 01/05/2019 3:20 AM [facility] Monocytes % 9.2 3.0 - 15.0 % 01/05/2019 3:20 AM CDT [facility] Eosinophils % 4.3 0.0 - 6.0 % 01/05/2019 3:20 AM [facility] Basophil % 0.5 0.0 - 1.5 % 01/05/2019 3:20 AM [facility] Neutrophils Absolute 7.8(H) 1.6 - 7.0 10 3/uL 01/05/2019 3:20 AM [facility] Lymphocyte Absolute 1.6 0.8 - 2.9 10 3/uL 01/05/2019 3:20 AM [facility] Monocytes Absolute 1.01(H) 0.14 - 0.66 10 3/uL 01/05/2019 3:20 AM [facility] Eosinophils Absolute 0.47(H) 0.00 - 0.45 10 3/uL 01/05/2019 3:20 AM [facility] Basophils Absolute 0.06 0.00 - 0.06 10 3/uL 01/05/2019 3:20 AM [facility] Immature Granulocytes % 0.4 0.0 - 1.0 % 01/05/2019 3:20 AM [facility] Blood BLOOD SPECIMEN / Unknown Lab Venipuncture / Unknown 01/05/2019 2:32 AM CDT 01/05/2019 3:15 AM CDT Juanpablo-Chaparro Quigley MD LAB - HEMATOLOGY ORD ERABLES Performing Organization Address City/State/[facility] Co de Phone Number [facility] [address] [phone] * (ABNORMAL) BASIC METABOLIC PANEL (CALCIUM TOTAL) (01/05/2019 2:32 AM CDT) Only the most recent of3 resultswithin the time period is included. BUN 14 7 - 26 mg/dL 01/05/2019 3:43 AM [facility] Creatinine 0.9 0.6 - 1.2 mg/dL 01/05/2019 3:43 AM [facility] Sodium 139 136 - 145 mmol/L 01/05/2019 3:43 AM T [facility] Potassium 3.8 3.5 - 4.5 mmol/L 01/05/2019 3:43 AM [facility] Chloride 106 98 - 107 mmol/L 01/05/2019 3:43 AM [facility] CO2 24 22 - 29 mmol/L 01/05/2019 3:43 AM [facility] Glucose 118(H) 70 - 115 mg/dL 01/05/2019 3:43 AM [facility] Calcium 8.1(L) 8.4 - 10.2 mg/dL 01/05/2019 3:43 AM [facility] Anion Gap 13 8 - 18 01/05/2019 3:43 AM [facility] BUN/Creatinine Ratio 16 7 - 23 01/05/2019 3:43 AM [facility] Osmolality Calculated 290 270 - 300 mOsm/kg 01/05/2019 3:43 AM [facility] eGFR >60 >60 mL/min/1.7 3 m2 01/05/2019 3:43 AM [facility] Blood BLOOD SPECIMEN / Unknown Lab Venipuncture / Unknown 01/05/2019 2:32 AM CDT 01/05/2019 3:15 AM CDT Itz Quigley MD LAB - CHEMISTRY ORDMicheline GRAFF Performing Organization Address City/[facility]/ZIP Co de Phone Number [address] [phone] * (ABNORMAL) PHOSPHORUS BLOOD (01/05/2019 2:32 AM CDT) Only the most recent of2 resultswithin the time period is included. Phosphorus 1.9(L) 2.3 - 4.7 mg/dL 01/05/2019 3:39 AM T [facility] Blood BLOOD SPECIMEN / Unknown Lab Venipuncture / Unknown 01/05/2019 2:32 AM CDT 01/05/2019 3:15 AM CDT Itz Quigley MD LAB - CHEMISTRY ESSENCE GRAFF [address] [phone] * MAGNESIUM BLOOD (01/05/2019 2:32 AM CDT) Only the most recent of2 resultswithin the time period is included. Magnesium 2.0 1.6 - 2.6 mg/dL 01/05/2019 3:43 AM CDT [facility] Blood BLOOD SPECIMEN / Unknown Lab Venipuncture / Unknown 01/05/2019 2:32 AM CDT 01/05/2019 3:15 AM CDT Itz Quigley MD LAB - CHEMISTRY ESSENCE GRAFF Performing Organization Address City/[facility]/[place] [address], [facility] [phone] * (ABNORMAL) CK BLOOD (01/05/2019 2:32 AM CDT) Only the most recent of3 resultswithin the time period is included. CK Total 774(H) 30 - 200 Units/L 01/05/2019 3:43 AM CDT [facility] Blood BLOOD SPECIMEN / Unknown Lab Venipuncture / Unknown 01/05/2019 2:32 AM CDT 01/05/2019 3:15 AM CDT Itz Quigley MD LAB - CHEMISTRY ESSENCE GRAFF Performing Organization Address City/[facility] [place] [address], [facility] [phone] * XR CLAVICLE BILAT 2VW (01/04/2019 10:46 AM CDT) Anatomical Region Laterality Modality Chest, Upper Extremity Radiograp hic Imaging 01/04/2019 11:1 5 AM CDT Impressions 01/04/2019 4:09 PM CDT IMPRESSION: Redemonstrated comminuted fracture of the right clavicle. Dictated by Rigoberto Gray MD (radiology asst). I, Dr. MIGEL CORADO have personally reviewed [...] right clavicle. Dictated by Rigoberto Gray MD (radiology asst). I, Dr. MIGEL CORADO have personally reviewed [...] pleural effusion. Dictated by Surjit Moody MD (radiology asst). Dr. Rhonda Matthews M.D. have personally reviewed [...] pleural effusion. Dictated by Surjit Moody MD (radiology asst). I, Dr. Rhonda LANDRUM M.D. have personally reviewed and interpretedthis examination/study. This report was electronically signed by Rhonda LANDRUM M.D. on 01/04/2019 10:14 AM . Dereje Lobo MD CT ORDERABLES * DRUG SCREEN TOX URINE PANEL (01/03/2019 7:55 PM CDT) Amphetamines Screen Urine Negative Negative: < 1000 ng/mL 01/03/2019 8:12 PM CDT [facility] Barbiturates Screen Urine Negative Negative: < 200 ng/mL 01/03/2019 8:12 PM CDT [facility] Benzodiazepine Screen Urine Negative Negative: < 200 ng/mL 01/03/2019 8:12 PM CDT [facility] Opiates Urine Negative Negative: < 300 ng/mL 01/03/2019 8:12 PM CDT [facility] Cocaine Metabolites Urine Negative Negative: < 300 ng/mL 01/03/2019 8:12 PM CDT [facility] Phencyclidine Screen Urine Negative Negative: < 25 ng/ml 01/03/2019 8:12 PM CDT [facility] Cannabinoids Screen Urine Negative Negative: <50 ng/mL 01/03/2019 8:12 PM CDT [facility] Methadone Screen Urine Negative Negative: < 300 ng/mL 01/03/2019 8:12 PM CDT [facility] Urine URINE / Unknown Collection / Unknown 01/03/2019 7:55 PM CDT 01/03/2019 7:55 PM CDT Narrative [facility] - 01/03/2019 8:12 PM CDT The Urine Toxicology Screening Panel does not screen for Propoxyphene, Meprobamate, Carisoprodol, Trazodone, vogl-ckc-sqwkxbr medications and/or volatiles (Acetone, Isopropanol, Methanol or Ethylene Glycol). Ethanol, Salicylate, Acetaminophen, Tricyclic Antidepressants and several therapeutic drugs may be individually assayed in serum or plasma specimen. Toxicology testing by the [facility] is an aid to medical diagnosis and treatment of patients. No documented chain of custody was maintained. Results are intended to be used for clinical purposes only. Levon Jonas DO LAB - URINE [place]MI[place] [address], [facility] [phone] * HIV-1 HIV-2 ANTIGEN/ANTIBODY (01/03/2019 7:05 PM CDT) HIV Antigen/Antibod y 1 & 2 Non-reacti ve Non-react denia 01/03/2019 7:49 PM CDT [facility] Comment: Neither HIV-1 p24 Antigen nor HIV-1/HIV-2 Antibodies are detected. Blood BLOOD SPECIMEN / Unknown Venipuncture / Unknown 01/03/2019 7:05 PM CDT 01/03/2019 7:06 PM CDT Glenn Silver MD LAB - HEMATOLOGY ORD ERABLES Performing Organization Address City/[facility]/[place] [address], [facility] [phone] * HEPATITIS C AB SCREEN RFLX NAAT QUANT (01/03/2019 7:05 PM CDT) Pathologist [facility] Hepatitis C Antibody Non-react denia Non-reac tive 01/03/2019 7:49 PM CDT [facility] Comment: Hepatitis C Antibody screen [...] - CHEMISTRY ESSENCE GRAFF Performing Organization Address [facility] Co de Phone Number [address] [phone] * TYPE + SCREEN PANEL (01/03/2019 6:56 PM CDT) [facility] [address] Antibody Screen NEG 9 7:35 PM CDT [facility] ABO Rh B POS 01/03/2019 7:35 PM CDT [facility] Blood Bank BLOOD SPECIMEN / Unknown Venipuncture / Unknown 01/03/2019 6:56 PM CDT 01/03/2019 6:56 PM CDT Levon Jonas DO LAB - BLOOD BANK UTE QUIÑONEZ Performing Organization Address [facility] Co de Phone Number [facility] [address] [place] [address] * EKG 12-LEAD (01/03/2019 6:53 PM CDT) [facility] [address] Ventricular Rate 95 BPM [facility] Atrial Rate 95 BPM [facility] P-R Interval 106 ms [facility] QRS Duration ms 84 ms [facility] Q-T Interval ms 346 ms [facility] QTC Calculation (Bezet) 434 ms [facility] Calculated P [place] 28 degrees [facility] Calculated R [place] 6 degrees [facility] Calculated T [place] 35 degrees [facility] Interpretation EKG SINUS RHYTHM WITH SHORT IN OTHERWISE NORMAL ECG NO PREVIOUS ECGS AVAILABLE Confirmed by Surjit Mejias ([id number]), editor trade journal SILVINO JAEGER ([id number]) on 01/23/2019 8:13:07 AM [facility] MUSE 01/03/2019 6:53 PM CDT 01/23/2019 8:13 AM CDT Levon Jonas DO ECG ORDERABLES Performing Organization Address City/[facility]/ZIP Co de Phone Number [facility]USE * PTT [facility] (01/03/2019 6:52 PM CDT) APTT 25.6 23.0 - 38.4 Seconds 01/03/2019 7:04 PM CDT [facility] Comment: * Please Note: New therapeutic range for heparin therapy. * Suggested therapeutic range for full dose I.V. heparin therapy for venous thromboembolism is 65 to 103 seconds. Blood BLOOD SPECIMEN / Unknown Venipuncture / Unknown 01/03/2019 6:52 PM CDT 01/03/2019 6:52 PM CDT Levon Jonas DO LAB - COAGULATION OR DERABLES [address] [phone] * PT-INR [facility] (01/03/2019 6:52 PM CDT) PT 13.2 12.1 - 14.8 Seconds 01/03/2019 7:03 PM CDT [facility] INR 1.1 See Comment 01/03/2019 7:03 PM CDT [facility] Comment: The suggested therapeutic range for standard coumadin (warfarin) therapy is an INR of 2.0-3.0. For high-risk patients (Mechanical Mitral Valve Prosthesis, etc.), the suggested prophylactic therapeutic range is an INR of 2.5-3.5. Blood BLOOD SPECIMEN / Unknown Venipuncture / Unknown 01/03/2019 6:52 PM CDT 01/03/2019 6:52 PM CDT [facility] DO LAB - COAGULATION OR DERABLES Performing Organization Address [facility]/ZIP Co de Phone Number [address] [phone] * ALCOHOL ETHYL BLOOD (01/03/2019 6:52 PM CDT) Interpretation Ethanol None Detected None Detected mg/dL 01/03/2019 7:12 PM CDT [facility] Comment: Ethanol levels less than 10 mg/dL are resulted as None detected . Blood BLOOD SPECIMEN / Unknown Venipuncture / Unknown 01/03/2019 6:52 PM CDT 01/03/2019 6:52 PM CDT [facility] LAB - CHEMISTRY ORDE RABLES Performing Organization Address [facility] Co de Phone Number [address] [phone] * XR CHEST 1VW PORTABLE (01/03/2019 6:46 PM CDT) Anatomical Region Laterality Modality Chest Radiographic Christina ging 01/03/2019 6:50 PM CDT Impressions 01/04/2019 12:01 PM CDT IMPRESSION: No acute pulmonary process. Fractures of the right clavicle and right fourth posterolateral rib. Dictated by Mari Hamilton MD (radiology asst). This report was approved by Joseph Quevedo [...] posterolateral rib. Dictated by Mari Hamilton MD (radiology asst). This report was approved by Joseph Quevedo on 01/04/2019 11:42 AM . I, Dr. Dr. GAVI SIDHU MD have personally reviewed and interpretedthis examination/study. This report was electronically signed by Dr. GAVI SIDHU MD on 01/04/2019 12:01 PM . Levon Jonas DO DIAGNOSTIC IMAGING O RDERABLES Care Teams Pole Tester Relationship Specialty Start Date End Date Chencho Sosa MD [address] [place] [id number] PCP - General Family Medicine 01/03/19
--- OUTSIDE RECORDS SUMMARY | 2024-07-26 18:50 | XMS_ITS | Clinical Summary ---
Author Organization [facility] Address [address] [place] [address] Care Team Providers Care Child Care Specialist Name Role Phone Chencho Sosa MD Primary Care Provider [phone] Wendy Trevino MD Unavailable [phone] Allergies Active Allergy Reactions Criticality Noted Date [...] type 10/19/2021 Paroxysmal SVT (supraventric ular tachycardia) ([facility]) 10/19/2021 Snoring 11/22/2020 Daytime somnolence 11/22/2020 Pure hypercholesterolemia 11/26/2019 Right leg numbness 06/10/2019 Lumbar transverse process fracture ([facility]) 01/05/2019 Coronary artery disease invo lving [place] coronary artery of [place] heart without angina pectoris 03/13/2018 Chest pain 03/11/2018 Essential hypertension Resolved Problems Problem Noted Date Diagnosed Date Resolved Date Impaired mobility and activi ties of daily living 01/05/2019 11/28/2020 Encounters Date Type Department Care Team Description 06/21/2024 11:25 PM DOCUMENT IMAGING SPECIALIST - 06/21/2024 11:[address] [facility] Hospital Encounter [facility] [place] [address] Rosy Nicolas FNP Discharge Disposition: Home or Self Care (Routine Discharge) 06/21/2024 [facility] [place] [address] Rosy Nicolas FNP from Last 3 Months [...] Sexual Orientation Straight 06/02/2021 8: 10 AM DOCUMENT IMAGING SPECIALIST Occupation Industry Job Start Date Job End Date Not on file Not on file Not on file Not on file Last Filed Vital Signs Vital Sign Reading Time Taken Comments Blood Pressure 126/69 02/03/2024 2:22 PM CDT Pulse 65 02/03/2024 2:22 PM CDT Temperature 37.1 C (98.8 F) 02/03/2024 2:22 PM CDT Respiratory Rate 17 05/28/2023 2:47 PM DOCUMENT IMAGING SPECIALIST Oxygen Saturation 97% 02/03/2024 2:2 2 PM [...] Description 08/17/2024 1:40 PM CDT Office Visit [facility] [address], [address] [place] [address] Jett Clement MD [address] [place] [address] 10/30/2024 2:00 PM CDT Office Visit [facility] [facility] [place] [address] Autumn Lima PA-C [address], [address] [place] [address] Health Maintenance Due Date Last Done Comments [...] 04/10/2021, 04/10/2019, Additional history exists PHQ-2 (Physician [place]) 06/10/2024 02/03/2024 DTaP, Tdap and Td Vaccines [...] perform ADLs independently General No Tori Garcia, RADIOLOGY INTERVENTIONAL PHYSICIANpractice advisor Devices Implanted Type Area Safety Analyst Device Identifier Shelf Expiration Date Model / Serial / Lot Stent Ureteral Leonardo Sci Contour 6fr X 26cm - [id number] Implanted:Qty : 1 on 11/02/2021 by Ed Gr MD at [facility] Stent Left: Ureter [employer] [id number] 07/17/2024 [id number] 30 / / [id number] Explanted Type Area Safety Analyst Device Identifier Shelf Expiration Date Model / Serial / Lot Stent Ureteral Leonardo Sci Contour 6fr X 26cm - [id number] Implanted:Qty: 1 on 10/25/2021 by Ed Gr MD at [facility] Explanted:Qty: 1 on 11/02/2021 at [facility] Stent Left: Ureter [employer] 06/23/2024 [id number] / / [id number] Procedures Procedure Name Priority Date/Time Associated Diagnosis Comments CBC W/DIFF AUTOMATED Routine 06/21/2024 9:45 PM DOCUMENT IMAGING SPECIALIST Encounter for long-term (current) use of antibiotics COMPREHENSIVE METABOLIC PANEL Routine 06/21/2024 9:45 PM DOCUMENT IMAGING SPECIALIST Encounter for long-term (current) use of antibiotics LIPID PANEL Routine 12/07/2022 10:17 AM CDT Hyperlipidemia, mixed HEPATITIS C ANTIBODY Routine 10/17/2021 9:49 AM CDT from Last 3 Months or Most Recently Relevant to Health Maintenance Results * (ABNORMAL) COMPREHENSIVE METABOLIC PANEL (06/21/2024 9:[address] [facility]) [facility] Signature GLUCOSE 141(H) 70 - 99 MG/DL 06/21/2024 11:[address] [facility] BUN 19(H) 7 - 18 MG/DL 06/21/2024 11:[address] [facility] CREATININE S/P/B 1.08 0.7 - 1.3 MG/DL 06/21/2024 11:[address] [facility] SODIUM S/P/B 140 136 - 145 MMOL/L 06/21/2024 11:[address] [facility] POTASSIUM S/P/B 4.0 3.5 - 5.1 MMOL/L 06/21/2024 11:[address] [facility] CHLORIDE S/P/B 104 97 - 115 MMOL/L 06/21/2024 11:[address] [facility] CO2 29.3 21 - 32 MMOL/L 06/21/2024 11:[address] [facility] CALCIUM S/P/B 8.5 8.5 - 10.1 MG/DL 06/21/2024 11:[address] [facility] BILIRUBIN TOTAL S/P/B 0.5 0.2 - 1.2 MG/DL 06/21/2024 11:[address] [facility] Comment: THIS ASSAY IS NOT RECOMMENDED FOR PATIENTS UNDERGOING TREATMENT WITH ELTROMBOPAG DUE TO THE POTENTIAL FOR FALSELY ELEVATED RESULTS. TOTAL PROTEIN S/P/B 6.7 6.4 - 8.2 G/DL 06/21/2024 11:[address] [facility] ALBUMIN S/P/B 3.4 3.4 - 5.0 G/DL 06/21/2024 11:[address] [facility] AST 24 15 - 37 U/L 06/21/2024 11:43 PM DOCUMENT IMAGING SPECIALIST [facility] ALT 24 16 - 60 U/L 06/21/2024 11:[address] [facility] ALKALINE PHOSPHATASE S/P/B 109 50 - 136 U/L 06/21/2024 11:[address] [facility] ANION GAP 6.7 2 - 10 MMOL/L 06/21/2024 11:[address] [facility] BUN CREATININE RATIO 17.6 6 - 26 06/21/2024 11:[address] [facility] A/G RATIO 1.0 1.0 - 2.0 RATIO 06/21/2024 11:[address] [facility] GFR ESTIMATE 79(L) >90 ML/MIN/1.7 3 M2 06/21/2024 11:[address] [facility] Comment: NOTE: eGFR is not calculated for patients <18 years of age or gender unknown. This is an estimated GFR calculation using the new CKD EPI creatinine equation without race and so does not require a correction factor for race. This estimated GFR should not be used for calculating drug doses. 06/21/2024 9:45 PM DOCUMENT IMAGING SPECIALIST Rosy Nicolas [facility] Final Result [facility] [address] [place] [address], * CBC W/DIFF AUTOMATED (06/21/2024 9:45 PM DOCUMENT IMAGING SPECIALIST) WBC 7.21 4.5 - 11.0 x10'3/uL 06/21/2024 11:[address] [facility] RBC 5.09 4.70 - 6.10 x10'6/uL 06/21/2024 11:[address] [facility] HGB 14.2 14.0 - 18.0 G/DL 06/21/2024 11:[address] [facility] HCT 44.3 43.0 - 54.0 % 06/21/2024 11:[address] [facility] MCV 87.0 80.0 - 94.0 FL 06/21/2024 11:[address] [facility] MCH 27.9 27.0 - 31.0 PG 06/21/2024 11:[address] [facility] MCHC 32.1 32.0 - 36.0 G/DL 06/21/2024 11:[address] [facility] RDW 14.2 11.5 - 14.5 % 06/21/2024 11:[address] [facility] PLT 238 130 - 400 x10'3/uL 06/21/2024 11:[address] [facility] MPV 12.0 9.3 - 12.2 FL 06/21/2024 11:[address] [facility] DIFFERENTIAL TYPE AUTOMATED DIFFERENTIAL 06/21/2024 11:[address] [facility] NEUTROPHILS % 46.4 % 06/21/2024 11:[address] [facility] LYMPHOCYTES % 38.7 % 06/21/2024 11:[address] [facility] MONOCYTES % 10.3 % 06/21/2024 11:[address] [facility] EOSINOPHILS 3.6 % 06/21/2024 11:[address] [facility] BASOPHILS 0.7 % 06/21/2024 11:[address] [facility] IMMATURE GRANS % 0.3 % 06/21/19 11:[address] [facility] ABS. NEUTROPHILS 3.35 1.80 - 7.70 x10'3/uL 06/21/2024 11:38 PM DOCUMENT IMAGING SPECIALIST [facility] ABS. LYMPHOCYTES 2.79 1.00 - 4.80 x10'3/uL 06/21/2024 11:38 [address] IMAGING SPECIALIST [facility] ABS. MONOCYTES 0.74 0.30 - 0.82 x10'3/uL 06/21/2024 11:38 PM DOC[address] IMAGING SPECIALIST [facility] ABS. EOSINOPHILS 0.26 0.04 - 0.54 x10'3/uL 06/21/2024 11:38 PM DOC[address] IMAGING SPECIALIST [facility] ABS. BASOPHILS 0.05 0.01 - 0.08 x10'3/uL 06/21/2024 11:38 [address] IMAGING SPECIALIST [facility] ABS. IMMATURE GRANULOCYTES 0.02 0.00 - 0.49 x10'3/uL 06/21/2024 11:38 PM DOC[address] IMAGING SPECIALIST [facility] 06/21/2024 9:45 PM DOCUMENT IMAGING SPECIALIST Rosy Nicolas [facility] Final Result [facility] [address] [place] [address], * LIPID PANEL (12/07/2022 10:17 AM CDT) CHOLESTEROL 128 <200 MG/DL 12/07/2022 11:[address] [facility] TRIGLYCERIDES 111 <150 MG/DL 12/07/2022 11:[address] [facility] HDL 49 >40.0 MG/DL 12/07/2022 11:[address] [facility] LDL (CALCULATED) 57 <100 MG/DL 12/08/19 11:[address] [facility] NON HDL CHOLESTEROL 79 <130 MG/DL 12/07 11:[address] [facility] CHOL/HDL RATIO 2.6 0.0 - 4.5 12/07/2022 11:[address] [facility] VLDL CALCULATION 22 5 - 55 MG/DL 12/07/2022 11:[address] [facility] LIPID INTERPRETATION 12/07/2022 11:[address] [facility] Comment: NIH CONCENSUS REPORT RECOMMENDATIONS: ADULT CHILD LOW RISK: CHOLESTEROL <200 <170 TRIGLYCERIDE <150 --- HDL >=60 --- LDL <100 <110 BORDERLINE: CHOLESTEROL 200-239 170-199 TRIGLYCERIDE 150-199 --- HDL 40-59 --- LDL 100-159 110-129 HIGH RISK: CHOLESTEROL >=240 >=200 TRIGLYCERIDE >=200 --- HDL <40 --- LDL >=160 >=130 12/07/2022 10:1 7 AM CDT Autumn Lima PA-C LABORATORY Final Resul t [facility] [address] [place] [address], [place] [phone] * HEPATITIS C ANTIBODY (10/17/2021 9:49 AM CDT) HEPATITIS C AB NON-REACTI VE NON-REACTI VE 10/18/2021 9:[address] [facility] 10/17/2021 9:49 AM CDT Jett Clement MD LABORATORY Final Res ult 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 Advance Directives and Living Will 03/13/2018 10:17 AM 03/12/2018 POA FOR HEALTHCARE * Full Code (Latest Code Status on File) Date Activated Date Inactivated Comments 10/25/2021 1:06 AM 10/30/2021 5:27 PM * Full Code Date Activated Date Inactivated Comments 06/25/2018 11:51 PM 06/26/2018 4:10 PM * Full Code Date Activated Date Inactivated Comments 03/13/2018 1:45 PM 03/14/2018 3:08 PM Care Teams Child Care Specialist Relationship Specialty Start Date End Date Chencho Sosa MD [address] [place] [address] PCP - General FAMILY PRACTICE 03/11/18 Wendy Trevino MD [facility] [address] [place] [address] [place] Service Observer INTERVENTIONAL CARDIOLOGY 04/02/18
--- OUTSIDE RECORDS SUMMARY | 2024-07-26 18:50 | XMS_ITS | Clinical Summary ---
Author Organization [facility] [employer] Address [address] [place] [address] Care Team Providers Care Yard Rigger Name Role Phone Chencho Sosa MD Primary Care Provider [phone] Source Comments [facility] [employer],non-owned Affiliates and Associated Physician Practices is amultiple site organization consisting of ambulatory clinics and hospital sitesin [place], [place], [place] and [place]. This disclosure is being madepursuant to the Care Everywhere program and may not contain all information available regarding this patient. Last updated 18.[facility] [employer] Allergies No known active allergies Medications * [...] 108 kg (238 lb) 05/25/2019 8:52 AM OPTIMIZATION ENGINEER Height 177.8 cm (5' 10 ) 05/25/2019 8:52 AM OPTIMIZATION ENGINEER Body Mass Index 34.15 05/25/2019 8:52 AM OPTIMIZATION ENGINEER Plan of Treatment Health Maintenance Due Date [...] 7 - 26 mg/dL 01/05/2019 3:43 AM [facility] Creatinine 0.9 0.6 - 1.2 mg/dL 01/05/2019 3:43 AM [facility] Sodium 139 136 - 145 mmol/L 01/05/2019 3:43 AM [facility] Potassium 3.8 3.5 - 4.5 mmol/L 01/05/2019 3:43 AM [facility] Chloride 106 98 - 107 mmol/L 01/05/2019 3:43 AM [facility] CO2 24 22 - 29 mmol/L 01/05/2019 3:43 AM [facility] Glucose 118(H) 70 - 115 mg/dL 01/05/2019 3:43 AM [facility] Calcium 8.1(L) 8.4 - 10.2 mg/dL 01/05/2019 3:43 AM [facility] Anion Gap 13 8 - 18 01/05/2019 3:43 AM [facility] BUN/Creatinine Ratio 16 7 - 23 01/05/2019 3:43 AM [facility] Osmolality Calculated 290 270 - 300 mOsm/kg 01/05/2019 3:43 AM [facility] eGFR >60 >60 mL/min/1.7 3 m2 01/05/2019 3:43 AM [facility] Blood BLOOD SPECIMEN / Unknown Lab Venipuncture / Unknown 01/05/2019 2:32 AM CDT 01/05/2019 3:15 AM CDT Itz Quigley MD LAB - CHEMISTRY ESSENCE GRAFF Performing Organization Address [facility]/ZIP Co de Phone Number [address] [phone] * HIV-1 HIV-2 ANTIGEN/ANTIBODY (01/03/2019 7:05 PM CDT) Pathologist [facility] HIV Antigen/Antibod y 1 & 2 Non-reacti ve Non-react denia 01/03/2019 7:49 PM CDT [facility] Comment: Neither HIV-1 p24 Antigen nor HIV-1/HIV-2 Antibodies are detected. Blood BLOOD SPECIMEN / Unknown Venipuncture / Unknown 01/03/2019 7:05 PM CDT 01/03/2019 7:06 PM CDT Glenn Silver MD LAB - HEMATOLOGY UTE QUIÑONEZ Performing Organization Address [facility]/[place] [address], [facility] [phone] * HEPATITIS C AB SCREEN RFLX NAAT QUANT (01/03/2019 7:05 PM CDT) Hepatitis C Antibody Non-react denia Non-reac tive 01/03/2019 7:49 PM CDT [facility] Comment: Hepatitis C Antibody screen indicates [...] Silver MD LAB - CHEMISTRY ESSENCE GRAFF [facility] Organization Address City/State/ZIP Co de Phone Number [address] [phone] from Last 3 Months or Most Recently Relevant to Health Maintenance Advance Directives Documents on File Type Date Recorded Patient Rug Measurer Expl anation Adv Directive/Living Will/POA 01/12/2019 6:26 AM * Full Code (Latest Code Status on File) Date Activated Date Inactivated Comments 01/06/2019 9:41 AM 01/08/2019 2:07 PM Care Teams Yard Rigger Relationship Specialty Start Date End Date Chencho Sosa MD [address] [place] [address] PCP - General Family Medicine 01/03/19
--- OUTSIDE RECORDS SUMMARY | 2024-07-26 18:50 | XMS_ITS | Referral Summary ---
Author Organization [facility] [employer] Address [address] [place] [address] Care Team Providers Care Rec Therapist Name Role Phone Chencho Sosa MD Primary Care Provider [phone] Source Comments [facility] [employer] Private,non-owned Affiliates and Associated Physician Practices is amultiple site organization consisting of ambulatory clinics and hospital sitesin [place], [place], [place] and [place]. This disclosure is being madepursuant to the Care Everywhere program and may not contain all information available regarding this patient. Last updated 18.[facility] [employer] Allergies No known active allergies Medications * [...] 108 kg (238 lb) 05/25/2019 8:52 AM ROOFING APPLICATOR Height 177.8 cm (5' 10 ) 05/25/2019 8:52 AM ROOFING APPLICATOR Body Mass Index 34.15 05/25/2019 8:52 AM ROOFING APPLICATOR Functional Status Functional Status Response Date of [...] 7 - 26 mg/dL 01/05/2019 3:43 AM [facility] Creatinine 0.9 0.6 - 1.2 mg/dL 01/05/2019 3:43 AM [facility] Sodium 139 136 - 145 mmol/L 01/05/2019 3:43 AM [facility] Potassium 3.8 3.5 - 4.5 mmol/L 01/05/2019 3:43 AM [facility] Chloride 106 98 - 107 mmol/L 01/05/2019 3:43 AM [facility] CO2 24 22 - 29 mmol/L 01/05/2019 3:43 AM [facility] Glucose 118(H) 70 - 115 mg/dL 01/05/2019 3:43 AM [facility] Calcium 8.1(L) 8.4 - 10.2 mg/dL 01/05/2019 3:43 AM [facility] Anion Gap 13 8 - 18 01/05/2019 3:43 AM [facility] BUN/Creatinine Ratio 16 7 - 23 01/05/2019 3:43 AM [facility] Osmolality Calculated 290 270 - 300 mOsm/kg 01/05/2019 3:43 AM [facility] eGFR >60 >60 mL/min/1.7 3 m2 01/05/2019 3:43 AM [facility] Blood BLOOD SPECIMEN / Unknown Lab Venipuncture / Unknown 01/05/2019 2:32 AM CDT 01/05/2019 3:15 AM CDT Juanpablo-Chaparro Quigley MD LAB - CHEMISTRY ESSENCE GRAFF [facility] Organization Address City/State/ZIP Co de Phone Number [address] [phone] * HIV-1 HIV-2 ANTIGEN/ANTIBODY (01/03/2019 7:05 PM CDT) HIV Antigen/Antibod y 1 & 2 Non-reacti ve Non-react denia 01/03/2019 7:49 PM CDT [facility] Comment: Neither HIV-1 p24 Antigen nor HIV-1/HIV-2 Antibodies are detected. Blood BLOOD SPECIMEN / Unknown Venipuncture / Unknown 01/03/2019 7:05 PM CDT 01/03/2019 7:06 PM CDT Glenn Silver MD LAB - HEMATOLOGY ORD KHANG Performing Organization Address City/[facility] Co de Phone Number [address] [phone] * HEPATITIS C AB SCREEN RFLX NAAT QUANT (01/03/2019 7:05 PM CDT) Pathologist [facility] Hepatitis C Antibody Non-react denia Non-reac tive 01/03/2019 7:49 PM CDT [facility] Comment: Hepatitis C Antibody screen indicates [...] Silver MD LAB - CHEMISTRY ORDMicheline GRAFF [address] [phone] from Last 3 Months or Most Recently Relevant to Health Maintenance Advance Directives Documents on File Type Date Recorded Patient Pharmacy General Manager Expl anation Adv Directive/Living Will/POA 01/12/2019 6:26 AM * Full Code (Latest Code Status on File) Date Activated Date Inactivated Comments 01/06/2019 9:41 AM 01/08/2019 2:07 PM Care Teams Rec Therapist Relationship Specialty Start Date End Date Chencho Sosa MD [address] [place] [address] PCP - General Family Medicine 01/03/19
--- OUTSIDE RECORDS SUMMARY | 2024-07-26 18:50 | XMS_ITS | Referral Summary ---
Author Organization [facility] Address [address] [place] [address] Care Team Providers Care Medical Affairs Specialist Name Role Phone Chencho Sosa MD Primary Care Provider Jett Clement MD Unavailable [phone] Allergies Active Allergy Reactions Criticality Noted Date [...] Comments Blood Pressure 128/82 07/16/2023 9:57 AM OVEN DRIER TENDER Pulse 64 07/16/2023 9:57 AM OVEN DRIER TENDER Temperature 36.2 C (97.1 F) 03/27/2022 1:35 PM CDT Respiratory Rate 20 02/13/2022 9:13 AM CDT Oxygen Saturation 95% 02/13/2022 9:1 3 AM CDT Inhaled Oxygen Concentration - - Weight 131.5 kg (290 lb) 07/16/2023 9:5 7 AM OVEN DRIER TENDER pt gave weight Height 177.8 cm (5' 10 ) 07/16/2023 9:5 7 AM OVEN DRIER TENDER Body Mass Index 41.61 07/16/2023 9:57 AM OVEN DRIER TENDER Plan of Treatment Not on file Insurance MEDICARE SOLUTIONS [facility] HMO/PPO Address: [facility] [id number] [place] [address] MEDICARE SOLUTIONS Care Teams Medical Affairs Specialist Relationship Specialty Start Date End Date Chencho Sosa MD [address] [address] PCP - General Family Medicine 03/31/20 Jett Clement MD [address] [place] [address] Referring Physician Neurology 11/07/21
[2024-07-26] MEDS: SODIUM CHLORIDE 0.9% IV 1,000 ML 999 ML IV CONT (19:03)
[2024-07-26 19:10] LABS: Basophils Percent Auto 0.3 % (0.2-1.2); Hematocrit 45.5 % (42.0-52.0); Immature Granulocyte Absolute 0.02 K/mm3 (0.00-0.031); Immature Granulocyte Percent A 0.2 % (0-0.5); Lymphocytes Percent Auto 9.2 % (18.3-44.2); Mean Corpuscular Hemoglobin 28.4 pg (26-34); Mean Corpuscular Volume 86.2 fl (80-100); Mean Platelet Volume 11.1 fl (7.4-10.4); Monocytes Absolute Auto 0.7 K/mm3 (0.1-0.6); Monocytes Percent Auto 8.2 % (2.6-8.5); Neutrophils Absolute Auto 7.1 K/mm3 (1.3-6.7); Neutrophils Percent Auto 82.1 % (45.5-73.1); Platelet Count Result 190 k/mm3 (150-375); Red Blood Count 5.28 M/mm3 (4.6-6.20); Red Cell Distribution Width 13.9 % (11.5-14.5); White Blood Count 8.7 K/mm3 (4.5-10.0)
[2024-07-26 19:13] LABS: Add Urine Microscopic? YES; Appearance Urine Clear (Clear); Bacteria Urine None Seen /hpf; Bilirubin Urine Negative (Negative); Blood Urine 1+ (Negative); Color Urine Yellow (Yellow); Glucose Urine UA Negative (Negative); Ketones Urine 1+ mg/dL (Negative); Leukocyte Esterase Ur Negative LEU/UL (Negative); Need Manual Microscopic Reviewed; Nitrate Urine Negative (Negative); Non Pathogenic Casts 0-2; Protein Urine 2+ mg/dL (Negative); Specific Grav Ur 1.029 (1.001-1.035); Squamous Epithelial Cell Urine Occasional /hpf (Few); WBC Urine 0-5 /hpf (0-3); pH Urine 5.5 (5.0-9.0)
[2024-07-26 19:20] LABS: INR 1.1
[2024-07-26 19:21] LABS: Partial Thromboplastin Time 28.8 Seconds (22.3-36.8)
[2024-07-26 20:21] LABS: Lactic Acid Reflex 1.2 mmol/L (0.7-2.0)
[2024-07-26 20:38] LABS: Influenza A QL RT-PCR Positive (Negative); Influenza B QL RT-PCR Negative (Negative); RSV RNA, RT-PCR Negative (Negative); SARS-CoV-2 RNA PCR Negative (Negative)
[2024-07-26 21:05] LABS: Alanine Aminotransferase 17 U/L (6-50); Alkaline Phosphatase 97 U/L (38-126); Anion Gap 10 mmol/L (4-12); Aspartate Amino Transferase 25 U/L (17-59); Blood Urea Nitrogen 17 mg/dL (9-20); CRP 3.7 mg/dL (<1.0); Calcium 8.6 mg/dL (8.4-10.2); Carbon Dioxide 21 mmol/L (22-30); Chloride 105 mmol/L (98-107); Estimated Glomerular Filt Rate > 60; Glucose 133 mg/dL (65-110); Lipase 183 U/L (23-300); Potassium 4.3 mmol/L (3.4-5.0); Sodium 136 mmol/L (137-145)
[2024-07-26] MEDS: OSELTAMIVIR PHOSPHATE 75 MG CAPSULE PO (22:17)
[2024-07-26] MEDS: ACETAMINOPHEN 325 MG TABLET 650 MG PO (22:17)
--- NOTE | 2024-07-26 22:34 | PC.NURSE ---
this rn updated patient med list according to complex care nurse medication list.
[2024-07-27 00:34] VITALS: BMI 37.0
--- NOTE | 2024-07-27 00:34 | ADMGEN ---
This patient, Tashi Esposito, was admitted to [facility] Surg Room 332-02. Patient/family oriented to hospital policies and general routines including ID bracelet, bed and alarms, visiting hours, pain management, procedures, bathroom and other care routines, personal items, smoking policy, room service/diet, and visiting hours. Information on how to activate the Rapid Response Team has been discussed. Patient/Family are encouraged to report perceived risks to care and to ask questions if they do not understand what they are told or what they should do.
[2024-07-27 00:42] VITALS: BP 161/85; PULSE 71; RESP 18; TEMP 37.2; O2SAT 93
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
[2024-07-27 06:00] VITALS: BP 109/71; PULSE 66; RESP 20; TEMP 36.6; O2SAT 92
[2024-07-27] MEDS: ENOXAPARIN 40 MG/0.4 ML SYRINGE SUB-Q (09:19)
[2024-07-27] MEDS: oxyBUTYnin CHLORIDE XL 5 MG TAB.ER.24 10 MG PO (09:19)
[2024-07-27] MEDS: ROSUVASTATIN 20 MG TABLET 40 MG PO (09:19)
[2024-07-27 09:20] VITALS: PULSE 66
[2024-07-27] MEDS: ISOSORBIDE MONONITRATE 15 MG TAB.ER.24H PO (09:20)
[2024-07-27] MEDS: PANTOPRAZOLE 40 MG TABLET PO (09:20)
[2024-07-27] MEDS: OSELTAMIVIR PHOSPHATE 75 MG CAPSULE PO ×2 (09:20→20:04)
[2024-07-27] MEDS: MIRABEGRON 25 MG ER TABLET PO (09:20)
[2024-07-27] MEDS: METOPROLOL SUCCINATE EXT REL 25 MG TABCR PO (09:20)
[2024-07-27] MEDS: ASPIRIN 81 MG CHEWABLE TABLET PO (09:21)
[2024-07-27] MEDS: guaiFENesin 12 HR 600 MG TABCR PO ×2 (11:08→20:04)
[2024-07-27] MEDS: polyethylene glycoL 3350 17 GM POWD.PACK PO (11:08)
[2024-07-27 14:00] VITALS: BP 114/71; PULSE 70; RESP 18; TEMP 36.8; O2SAT 99
--- NOTE | 2024-07-27 14:56 | P.PNCROSS_ITS ---
Event Note Event Note Event Note: Patient seen and assessed by previous provider admitted due to generalized wea kness and inability to care for self at home. Patient was d/c from SNF 2 days prior to arrival and was transferring himself with a trapeze from bed to wheelchair we became to weak to transfer himself and called EMS. Upon arrival he was found to be Influenza positive and was admitted to the medical unit for evaluation by PT/OT. Per CC notes patient is out of Skilled days and plan is to return home at discharge will continue with supportive care and Tamiflu a wait for PT/OT evaluation hopefully patient is strong enough to return home tomorrow.
[2024-07-27 21:49] VITALS: BP 111/68; PULSE 73; RESP 20; TEMP 38; O2SAT 94
[2024-07-28 05:50] VITALS: BP 122/78; PULSE 71; RESP 20; TEMP 37.4; O2SAT 95
[2024-07-28 07:58] VITALS: PULSE 74
[2024-07-28] MEDS: ASPIRIN 81 MG CHEWABLE TABLET PO (07:58)
[2024-07-28] MEDS: ISOSORBIDE MONONITRATE 15 MG TAB.ER.24H PO (07:58)
[2024-07-28] MEDS: ENOXAPARIN 40 MG/0.4 ML SYRINGE SUB-Q (07:58)
[2024-07-28] MEDS: guaiFENesin 12 HR 600 MG TABCR PO ×2 (07:58→20:11)
[2024-07-28] MEDS: METOPROLOL SUCCINATE EXT REL 25 MG TABCR PO (07:58)
[2024-07-28] MEDS: OSELTAMIVIR PHOSPHATE 75 MG CAPSULE PO ×2 (07:59→20:11)
[2024-07-28] MEDS: MIRABEGRON 25 MG ER TABLET PO (07:59)
[2024-07-28] MEDS: ROSUVASTATIN 20 MG TABLET 40 MG PO (08:00)
[2024-07-28] MEDS: polyethylene glycoL 3350 17 GM POWD.PACK PO (08:00)
[2024-07-28] MEDS: oxyBUTYnin CHLORIDE XL 5 MG TAB.ER.24 10 MG PO (08:00)
[2024-07-28] MEDS: PANTOPRAZOLE 40 MG TABLET PO (08:00)
[2024-07-28 10:08] LABS: Hematocrit 43.9 % (42.0-52.0); Hemoglobin 14.1 g/dL (14.0-18.0); Mean Corpuscular HGB Conc 32.1 g/dl (32-36); Mean Corpuscular Hemoglobin 27.8 pg (26-34); Mean Corpuscular Volume 86.6 fl (80-100); Mean Platelet Volume 11.8 fl (7.4-10.4); Platelet Count Result 183 k/mm3 (150-375); Red Blood Count 5.07 M/mm3 (4.6-6.20); Red Cell Distribution Width 14.1 % (11.5-14.5); White Blood Count 6.4 K/mm3 (4.5-10.0)
[2024-07-28 10:20] LABS: Alanine Aminotransferase 19 U/L (6-50); Albumin Level 3.7 g/dL (3.5-5.1); Alkaline Phosphatase 90 U/L (38-126); Anion Gap 13 mmol/L (4-12); Aspartate Amino Transferase 33 U/L (17-59); Bilirubin,Total 0.7 mg/dL (0.2-1.3); Blood Urea Nitrogen 14 mg/dL (9-20); Calcium 8.5 mg/dL (8.4-10.2); Carbon Dioxide 23 mmol/L (22-30); Chloride 102 mmol/L (98-107); Estimated CRCL calculation 88 ml/min; Estimated Glomerular Filt Rate > 60; Glucose 181 mg/dL (65-110); Potassium 3.7 mmol/L (3.4-5.0); Sodium 138 mmol/L (137-145)
--- NOTE | 2024-07-28 13:10 | PCPTNOTE ---
Attempted to see patient for evaluation. Imaging waiting for pt and pt requires bedding change and assist with bowel movement. Will reattempt evaluation as able.
[2024-07-28 14:00] VITALS: BP 130/78; PULSE 77; RESP 20; TEMP 36.9; O2SAT 96
--- NOTE | 2024-07-28 15:22 | P.PNIM_ITS ---
Progress Note: A&P Assessment and Plan (1) Influenza A: Code(s): J10.1 - Influenza due to other identified influenza virus with other respiratory manifestations Status: Acute Assessment and Plan: * Tamiflu x 5 days * on RA * poor appetite * antiemetics * antipyretics * continue supportive care (2) Generalized weakness: Code(s): R53.1 - Weakness Status: Acute (3) Neurologic gait dysfunction: Code(s): R26.9 - Unspecified abnormalities of gait and mobility Status: Acute Assessment and Plan: * CT head negative for in acute issues * PT/OT evaluation (4) Leukodystrophy: Onset Date: ~06/2021 Code(s): G31.80 - Leukodystrophy, unspecified Status: Acute Assessment and Plan: * Progression could be causing gait instablity (5) Essential hypertension: Code(s): I10 - Essential (primary) hypertension Status: Acute Assessment and Plan: * Resumed lisinopril, metoprolol * Reviewed stable * BP per unit protocol (6) Overactive bladder: Code(s): N32.81 - Overactive bladder Status: Acute Assessment and Plan: * Resume oxybutynin Plan Code status: Full code per patient DVT prophylaxis: Lovenox Stress ulcer prophylaxis: Protonix 40 daily PT/OT notes: PT/OT Disposition: patient continues admission to the medical unit will continue with treatment for influenza currently waiting on evaluation by PT OT some concern patient may need long-term placement if unable to care for self currently has both his sisters that care for him but he was able to transfer self to wheelchair but no longer able to at this time. Time Spent With Patient Time with patient: 15 - 25 minutes Subjective Date/time seen: 07/28/24 15:22 Interval history: Patient Is a 59-year-old male who was admitted for generalized weakness and inability to transfer himself at home recently discharged from rehab 2 days prior was found to be influenza positive. 07/28/2024 spoke with patient's sisters regarding patient's current status report patient was able to transfer himself to wheelchair as well as feed himself an use a urinal 2 days prior patient was unable to do any ADLs or transfer to his wheelchair. Patient had completed rehab 2 days prior to arrival to the emergency department PT/OT evaluation sister are open to possible long-term pl acement if patient does not improve patient does not have any longterm facility days left for rehab. Review of Systems Review of Systems: All systems reviewed & are unremarkable except as noted in HPI and below Exam Narrative: Weight 117.1 kg BMI 37 Const: Other: No acute distress, obese, appears stated age HENMT: Other: Mucous membranes are tacky, no oral pharyngeal erythema, crowded posterior oropharynx Eyes: Other: Pupils are equal and reactive, no scleral icterus, no conjunctival pallor Neck: Other: Large neck circumference, no thyromegaly, trachea min Resp: Other: Clear to auscultation bilaterally no tachypnea but shallow respiration Cardio: Other: Regular rate, regular rhythm, 2+ bilateral radial pedal pulses GI: Other: Soft, distended, nontender, normal active bowel sounds, abdominal respirations : Other: Pure wick catheter in place with empty canister Skin: Other: No jaundice, no pallor, no rashes Neuro: Other: Patient is alert oriented to person, place and year, confused as to the month he thought the month was October, and no facial asymmetry, somewhat slowed responses, answered was questions in yes and no responses followed commands Extrem: Other: 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, difficulty with extension of the wrists bilaterally left greater than right, no clubbing, cyanosis or edema Psych: Other: Flat affect, cooperative Objective Data Vital Signs Vital Signs: Vital Signs - 24 hr 07/27/24 20:00 07/27/24 21:49 07/28/24 05:50 Temperature 100.4 F H 99.4 F Pulse Rate 73 71 Respiratory Rate 20 20 Blood Pressure 111/68 122/78 Pulse Oximetry 94 95 Oxygen Delivery Room Air 07/28/24 07:58 07/28/24 08:00 07/28/24 14:00 Temperature 98.4 F Pulse Rate 74 77 Respiratory Rate 20 Blood Pressure 130/78 Pulse Oximetry 96 Oxygen Delivery Room Air Intake/Output Intake/Output: Intake & Output 07/25/24 07/26/24 07/27/24 07/28/24 23:59 23:59 23:59 23:59 Intake Total 1000 1767 556 Output Total 200 1000 600 Balance 800 767 -44 Meds/Results Medications: Active Medications Generic Name Dose Route Start Last Admin Trade Name Freq PRN Reason Stop Dose Admin Acetaminophen 650 mg 07/27/24 02:00 Acetaminophen 325 Mg Tablet PO Q4H PRN Mild Pain (1-3) or Fever Aspirin 81 mg 07/27/24 09:00 07/28/24 07:58 Aspirin 81 Mg Chewable Tablet PO 81 mg DAILY PIETER Administration Enoxaparin Sodium 40 mg 07/27/24 09:00 07/28/24 07:58 Enoxaparin 40 Mg/0.4 Ml Syringe SUB-Q 40 mg DAILY PIETER Administration Guaifenesin 600 mg 07/27/24 09:35 07/28/24 07:58 Guaifenesin 12 Hr 600 Mg Tabcr PO 600 mg Q12HR PIETER Administration Isosorbide Mononitrate 15 mg 07/27/24 09:00 07/28/24 07:58 Isosorbide Mononitrate 15 Mg Tab.Er.24h PO 15 mg DAILY PIETER Administration Metoprolol Succinate 25 mg 07/27/24 09:00 07/28/24 07:58 Metoprolol Succinate Ext Rel 25 Mg Tabcr PO 25 mg DAILY PIETER Administration Mirabegron 25 mg 07/27/24 09:00 07/28/24 07:59 Mirabegron 25 Mg Er Tablet PO 25 mg DAILY PIETER Administration Ondansetron HCl 4 mg 07/27/24 09:26 Ondansetron Inj 4 Mg/2 Ml Vial IV PUSH Q6H PRN Nausea And Vomiting Oseltamivir Phosphate 75 mg 07/27/24 09:00 07/28/24 07:59 Oseltamivir Phosphate 75 Mg Capsule PO 08/01/24 08:59 75 mg Q12HR PIETER Administration Oxybutynin Chloride 10 mg 07/27/24 09:00 07/28/24 08:00 Oxybutynin Chloride Xl 5 Mg Tab.Er.24 PO 10 mg DAILY PIETER Administration Pantoprazole Sodium 40 mg 07/27/24 09:00 07/28/24 08:00 Pantoprazole 40 Mg Tablet PO 40 mg QAM PIETER Administration Polyethylene Glycol 17 gm 07/27/24 09:35 07/28/24 08:00 Polyethylene Glycol 3350 17 Gm Powd.Pack PO 17 gm QAM PIETER Administration Rosuvastatin Calcium 40 mg 07/27/24 09:00 07/28/24 08:00 Rosuvastatin 20 Mg Tablet PO 40 mg DAILY PIETER Administration Radiology Results: ITS Impressions Chest X-Ray 07/26/24 20:15 IMPRESSION: 1. Small lung volumes with no evident acute cardiopulmonary disease. Head CT 07/28/24 14:24 IMPRESSION: 1. Stable extensive nonspecific cerebral white matter disease, which likely rep resents chronic small vessel ischemic disease. Labs Labs: Laboratory Results - last 24 hr 07/28/24 09:04 WBC 6.4 RBC 5.07 Hgb 14.1 Hct 43.9 MCV 86.6 MCH 27.8 MCHC 32.1 RDW 14.1 Plt Count 183 MPV 11.8 H Sodium 138 Potassium 3.7 Chloride 102 Carbon Dioxide 23 Anion Gap 13 H BUN 14 Creatinine 1.02 Estim Creat Clear Calc 88 Estimated GFR > 60 Glucose 181 H Calcium 8.5 Total Bilirubin 0.7 AST 33 ALT 19 Alkaline Phosphatase 90 Total Protein 7.0 Albumin 3.7 Quality VTE Prophylaxis VTE prophylaxis: pharmacologic ordered -Patient's previous records reviewed on admission -ER notes reviewed in detail on admission -discussed all findings and current treatment plan with patient/Family/POA -Consultations reviewed for recommendations -Patient's disposition for safe discharge discussed with family independence case manager Dictation performed by [employer] direct speech recognition software, therefore modeling and simulation analyst variants and typographical errors may occur. Hospitalist [facility] Advance Care Plan I have confirmed that the patient's Advanced Care Plan is present, code status is documented, or surrogate decision maker is listed in patient medical record.: Yes Medication Reconciliation I have utilized all available resources to obtain, update and review the patients current medications (includes all prescriptions, OTC, herbals, cannabis, and nutritional supplements).: Yes The patient is not eligible for med reconciliation; the patient is in a emergent medical situation where delaying treatment would jeopardize the patients health.: No
[2024-07-28 20:00] VITALS: PULSE 70; RESP 18; O2SAT 90
[2024-07-28 22:00] VITALS: BP 122/82; PULSE 70; RESP 18; TEMP 37.6; O2SAT 90
[2024-07-29 06:00] VITALS: BP 112/77; PULSE 64; RESP 18; TEMP 37.1; O2SAT 90
[2024-07-29] MEDS: ENOXAPARIN 40 MG/0.4 ML SYRINGE SUB-Q (08:18)
[2024-07-29] MEDS: guaiFENesin 12 HR 600 MG TABCR PO ×2 (08:18→20:12)
[2024-07-29 08:19] VITALS: PULSE 80
[2024-07-29] MEDS: ROSUVASTATIN 20 MG TABLET 40 MG PO (08:19)
[2024-07-29] MEDS: MIRABEGRON 25 MG ER TABLET PO (08:19)
[2024-07-29] MEDS: PANTOPRAZOLE 40 MG TABLET PO (08:19)
[2024-07-29] MEDS: OSELTAMIVIR PHOSPHATE 75 MG CAPSULE PO ×2 (08:19→20:12)
[2024-07-29] MEDS: oxyBUTYnin CHLORIDE XL 5 MG TAB.ER.24 10 MG PO (08:19)
[2024-07-29] MEDS: ASPIRIN 81 MG CHEWABLE TABLET PO (08:19)
[2024-07-29] MEDS: ISOSORBIDE MONONITRATE 15 MG TAB.ER.24H PO (08:19)
[2024-07-29] MEDS: METOPROLOL SUCCINATE EXT REL 25 MG TABCR PO (08:19)
[2024-07-29 14:00] VITALS: BP 105/48; PULSE 66; RESP 18; TEMP 36.1; O2SAT 95
--- NOTE | 2024-07-29 15:29 | PM.IMPN ---
Progress Note: A&P Assessment and Plan (1) Acute urinary tract infection: Code(s): N39.0 - Urinary tract infection, site not specified Status: Resolved Assessment and Plan: pt treated for suspected UTI with iv rocephin follow UC (2) Generalized muscle weakness: Code(s): M62.81 - Muscle weakness (generalized) Status: Acute Assessment and Plan: PT/ OT obtain notes from [facility] neurologist history of form of muscular dystrophy consult neurology here order gabapentin for possible neuropathy in legs (3) Neuropathy of lower extremity: Code(s): G57.90 - Unspecified mononeuropathy of unspecified lower limb Status: Acute Assessment and Plan: Chronic gait disorder Pt had mri l/s showing Moderate degenerative spondylosis at L5-S1. Mild degenerative change in the remainder of the lumbar spine, as detailed above. Minimal grade 1 retrolisthesis of L5 over S1. PT/ OT Awaiting neurology review pt currently lives alone carer comes to help PT/ OT ordered (4) IFG (impaired fasting glucose): Code(s): R73.01 - Impaired fasting glucose Status: Inactive Assessment and Plan: order hbaic (5) CAD (coronary artery disease): Qualifiers: Coronary Disease-Associated Artery/Lesion type: [place] artery [place] vs. transplanted heart: [place] heart Associated angina: unspecified whether angina present Qualified Code(s): I25.10 - Atherosclerotic heart disease of [place] coronary artery without angina pectoris Code(s): I25.10 - Atherosclerotic heart disease of [place] coronary artery without angina pectoris Status: Inactive Assessment and Plan: continue home medications ISMN metoprolol (6) Flu: Code(s): J11.1 - Influenza due to unidentified influenza virus with other respiratory manifestations Status: Acute Assessment and Plan: Pt found to have the flu supportive care continue tamiflu Plan overactive bladder- oxybuynin Subjective Date/time seen: 07/29/24 15:29 Interval history: Pt admitted with bilateral leg weakness flu and overactive bladder 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 Review of Systems Review of Systems: Leg weakness acute on chronic weakness no speech or swallow problems mild cough Exam Const: General: cooperative, healthy appearing and overweight; No in distress Nutritional Appearance: overweight Orientation/consciousness: oriented to person HENMT: Head: normal to inspection Resp: Effort & Inspection: no respiratory distress Auscultation: no rhonchi and no wheezes Cardio: Rate: regular rate Rhythm: regular rhythm GI: Inspection: normal to inspection Auscultation: normal bowel sounds Neuro: General: oriented to person Extrem: Other: Bilateral weakness 4/5 in legs Objective Data Vital Signs Vital Signs: Vital Signs - 24 hr 07/28/24 20:00 07/28/24 22:00 07/29/24 06:00 Temperature 37.6 C 37.1 C Pulse Rate 70 70 64 Respiratory Rate 18 18 18 Blood Pressure 122/82 112/77 Pulse Oximetry 90 90 90 Oxygen Delivery Room Air 07/29/24 08:00 07/29/24 08:19 Temperature Pulse Rate 80 Respiratory Rate Blood Pressure Pulse Oximetry Oxygen Delivery Room Air Intake/Output Intake/Output: Intake & Output 07/26/24 07/27/24 07/28/24 07/29/24 23:59 23:59 23:59 23:59 Intake Total 1000 1767 1276 473 Output Total 200 1000 1200 900 Balance 800 767 76 427 Meds/Results Medications: Active Medications Generic Name Dose Route Start Last Admin Trade Name Freq PRN Reason Stop Dose Admin Acetaminophen 650 mg 07/27/24 02:00 Acetaminophen 325 Mg Tablet PO Q4H PRN Mild Pain (1-3) or Fever Aspirin 81 mg 07/27/24 09:00 07/29/24 08:19 Aspirin 81 Mg Chewable Tablet PO 81 mg DAILY PIETER Administration Enoxaparin Sodium 40 mg 07/27/24 09:00 07/29/24 08:18 Enoxaparin 40 Mg/0.4 Ml Syringe SUB-Q 40 mg DAILY PIETER Administration Guaifenesin 600 mg 07/27/24 09:35 07/29/24 08:18 Guaifenesin 12 Hr 600 Mg Tabcr PO 600 mg Q12HR PIETER Administration Isosorbide Mononitrate 15 mg 07/27/24 09:00 07/29/24 08:19 Isosorbide Mononitrate 15 Mg Tab.Er.24h PO 15 mg DAILY PIETER Administration Metoprolol Succinate 25 mg 07/27/24 09:00 07/29/24 08:19 Metoprolol Succinate Ext Rel 25 Mg Tabcr PO 25 mg DAILY PIETER Administration Mirabegron 25 mg 07/27/24 09:00 07/29/24 08:19 Mirabegron 25 Mg Er Tablet PO 25 mg DAILY PIETER Administration Ondansetron HCl 4 mg 07/27/24 09:26 Ondansetron Inj 4 Mg/2 Ml Vial IV PUSH Q6H PRN Nausea And Vomiting Oseltamivir Phosphate 75 mg 07/27/24 09:00 07/29/24 08:19 Oseltamivir Phosphate 75 Mg Capsule PO 08/01/24 08:59 75 mg Q12HR PIETER Administration Oxybutynin Chloride 10 mg 07/27/24 09:00 07/29/24 08:19 Oxybutynin Chloride Xl 5 Mg Tab.Er.24 PO 10 mg DAILY PIETER Administration Pantoprazole Sodium 40 mg 07/27/24 09:00 07/29/24 08:19 Pantoprazole 40 Mg Tablet PO 40 mg QAM PIETER Administration Polyethylene Glycol 17 gm 07/27/24 09:35 07/29/24 08:19 Polyethylene Glycol 3350 17 Gm Powd.Pack PO Not Given QAM PIETER Rosuvastatin Calcium 40 mg 07/27/24 09:00 07/29/24 08:19 Rosuvastatin 20 Mg Tablet PO 40 mg DAILY PIETER Administration Radiology Results: ITS Impressions Chest X-Ray 07/26/24 20:15 IMPRESSION: 1. Small lung volumes with no evident acute cardiopulmonary disease. Head CT 07/28/24 14:24 IMPRESSION: 1. Stable extensive nonspecific cerebral white matter disease, which likely represents chronic small vessel ischemic disease.
[2024-07-29 17:30] LABS: Glucose Point of Care 151 mg/dl (65-105)
[2024-07-29 18:55] LABS: Hemoglobin A1C 6.4 % (<5.7)
[2024-07-29 19:53] VITALS: PULSE 66; RESP 18; O2SAT 95
[2024-07-29 21:16] LABS: Glucose Point of Care 138 mg/dl (65-105)
[2024-07-29 22:00] VITALS: BP 125/67; PULSE 64; RESP 18; TEMP 36.6; O2SAT 95
[2024-07-30 06:00] VITALS: BP 127/90; PULSE 64; RESP 18; TEMP 36.1; O2SAT 95
[2024-07-30 08:04] LABS: Glucose Point of Care 116 mg/dl (65-105)
[2024-07-30] MEDS: ENOXAPARIN 40 MG/0.4 ML SYRINGE SUB-Q (08:08)
[2024-07-30] MEDS: ASPIRIN 81 MG CHEWABLE TABLET PO (08:08)
[2024-07-30 08:09] VITALS: PULSE 72
[2024-07-30] MEDS: MIRABEGRON 25 MG ER TABLET PO (08:09)
[2024-07-30] MEDS: oxyBUTYnin CHLORIDE XL 5 MG TAB.ER.24 10 MG PO (08:09)
[2024-07-30] MEDS: ISOSORBIDE MONONITRATE 15 MG TAB.ER.24H PO (08:09)
[2024-07-30] MEDS: PANTOPRAZOLE 40 MG TABLET PO (08:09)
[2024-07-30] MEDS: ROSUVASTATIN 20 MG TABLET 40 MG PO (08:09)
[2024-07-30] MEDS: guaiFENesin 12 HR 600 MG TABCR PO ×2 (08:09→20:28)
[2024-07-30] MEDS: METOPROLOL SUCCINATE EXT REL 25 MG TABCR PO (08:09)
[2024-07-30] MEDS: polyethylene glycoL 3350 17 GM POWD.PACK PO (08:09)
[2024-07-30] MEDS: OSELTAMIVIR PHOSPHATE 75 MG CAPSULE PO ×2 (08:09→20:28)
[2024-07-30 08:31] LABS: Anion Gap 9 mmol/L (4-12); Blood Urea Nitrogen 14 mg/dL (9-20); Calcium 8.8 mg/dL (8.4-10.2); Carbon Dioxide 25 mmol/L (22-30); Chloride 105 mmol/L (98-107); Estimated CRCL calculation 108 ml/min; Estimated Glomerular Filt Rate > 60; Glucose 113 mg/dL (65-110); Potassium 3.6 mmol/L (3.4-5.0); Sodium 139 mmol/L (137-145)
[2024-07-30 11:58] LABS: Glucose Point of Care 122 mg/dl (65-105)
[2024-07-30 14:00] VITALS: BP 103/75; PULSE 60; RESP 18; TEMP 36.4; O2SAT 95
--- NOTE | 2024-07-30 15:45 | PCPTNOTE ---
On 07/30/24, the student, MEAGAN Brown, provided care and completed [facility] documentation on this patient. I have reviewed the student's documentation and agree with the findings.
--- NOTE | 2024-07-30 16:30 | PM.IMPN ---
Progress Note: A&P Assessment and Plan (1) Acute urinary tract infection: Code(s): N39.0 - Urinary tract infection, site not specified Status: Resolved Assessment and Plan: ##- suspected UTI with iv rocephin -->follow UC (2) Generalized muscle weakness: Code(s): M62.81 - Muscle weakness (generalized) Status: Acute Assessment and Plan: -->PT/ OT -obtain notes from [facility] neurologist -history of form of muscular dystrophy -consult neurology here -order gabapentin for possible neuropathy in legs (3) Neuropathy of lower extremity: Code(s): G57.90 - Unspecified mononeuropathy of unspecified lower limb Status: Acute Assessment and Plan: ##Chronic gait disorder - had mri l/s showing Moderate degenerative spondylosis at L5-S1. - Mild degenerative change in the remainder of the lumbar spine, as detailed above. - Minimal grade 1 retrolisthesis of L5 over S1. - PT/ OT - Awaiting neurology review - pt currently lives alone carer comes to help - PT/ OT ordered (4) IFG (impaired fasting glucose): Code(s): R73.01 - Impaired fasting glucose Status: Inactive Assessment and Plan: order hbaic (5) CAD (coronary artery disease): Qualifiers: Coronary Disease-Associated Artery/Lesion type: [place] artery [place] vs. transplanted heart: [place] heart Associated angina: unspecified whether angina present Qualified Code(s): I25.10 - Atherosclerotic heart disease of [place] coronary artery without angina pectoris Code(s): I25.10 - Atherosclerotic heart disease of [place] coronary artery without angina pectoris Status: Inactive Assessment and Plan: continue home medications ISMN metoprolol (6) Flu: Code(s): J11.1 - Influenza due to unidentified influenza virus with other respiratory manifestations Status: Acute Assessment and Plan: # flu supportive care # continue tamiflu Plan #overactive bladder- oxybuynin Time Spent With Patient Time with patient: Greater than 35 minutes Subjective Date/time seen: 07/30/24 16:30 Interval history: Patient has 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 Pt usually goes to [facility] awaiting old notes from there. Patient reports that he feels ok today, report feeling weak but no distress. Denies any headaches, chest pain, N/V/D, or distress. Review of Systems Review of Systems: Leg weakness acute on chronic weakness no speech or swallow problems mild cough All systems reviewed & are unremarkable except as noted in HPI and below ROS unobtainable: Yes unobtainable due to medical condition (Leukodystrophy) Exam Narrative: Weight 117.1 kg BMI 37 Const: General: cooperative, healthy appearing and overweight; No in distress Nutritional Appearance: overweight Orientation/consciousness: oriented to person Other: No acute distress, obese, appears stated age HENMT: Head: normal to inspection Other: Mucous membranes are tacky, no oral pharyngeal erythema, crowded posterior oropharynx Eyes: Other: Pupils are equal and reactive, no scleral icterus, no conjunctival pallor Neck: Other: Large neck circumference, no thyromegaly, trachea min Resp: Effort & Inspection: no respiratory distress Auscultation: no rhonchi and no wheezes Other: Clear to auscultation bilaterally no tachypnea but shallow respiration Cardio: Rate: regular rate Rhythm: regular rhythm Other: Regular rate, regular rhythm, 2+ bilateral radial pedal pulses GI: Inspection: normal to inspection Auscultation: normal bowel sounds Other: Soft, distended, nontender, normal active bowel sounds, abdominal respirations : Other: Pure wick catheter in place with empty canister Skin: Other: No jaundice, no pallor, no rashes Neuro: General: oriented to person Other: Patient is alert oriented to person, place and year, confused as to the month he thought the month was October, and no facial asymmetry, somewhat slowed responses, answered was questions in yes and no responses followed commands Extrem: Other: Bilateral weakness 4/5 in legs Psych: Other: Flat affect, cooperative Objective Data Vital Signs Vital Signs: Vital Signs - 24 hr 07/29/24 19:53 07/29/24 22:00 07/30/24 06:00 Temperature 97.9 F 97.0 F L Pulse Rate 66 64 64 Respiratory Rate 18 18 18 Blood Pressure 125/67 127/90 Pulse Oximetry 95 95 95 Oxygen Delivery Room Air 07/30/24 08:00 07/30/24 08:09 07/30/24 08:40 Temperature Pulse Rate 72 Respiratory Rate Blood Pressure Pulse Oximetry Oxygen Delivery Room Air Room Air 07/30/24 14:00 Temperature 97.6 F Pulse Rate 60 Respiratory Rate 18 Blood Pressure 103/75 Pulse Oximetry 95 Oxygen Delivery Intake/Output Intake/Output: Intake & Output 07/27/24 07/28/24 07/29/24 07/30/24 23:59 23:59 23:59 23:59 Intake Total 1767 1276 593 720 Output Total 1000 1200 1300 550 Balance 767 76 -707 170 Meds/Results Medications: Active Medications Generic Name Dose Route Start Last Admin Trade Name Freq PRN Reason Stop Dose Admin Acetaminophen 650 mg 07/27/24 02:00 Acetaminophen 325 Mg Tablet PO Q4H PRN Mild Pain (1-3) or Fever Aspirin 81 mg 07/27/24 09:00 07/30/24 08:08 Aspirin 81 Mg Chewable Tablet PO 81 mg DAILY PIETER Administration Dextrose 12.5 gm 07/29/24 15:54 Dextrose 50% 25 Gm/50 Ml Syringe IV PUSH PRN PRN Hypoglycemia Protocol Enoxaparin Sodium 40 mg 07/27/24 09:00 07/30/24 08:08 Enoxaparin 40 Mg/0.4 Ml Syringe SUB-Q 40 mg DAILY PIETER Administration Glucagon 1 mg 07/29/24 15:54 Glucagon For Inj 1 Mg Vial IM PRN PRN Hypoglycemia Protocol Glucose 15 gm 07/29/24 15:54 Glucose Oral Gel 15 Gm Of Glucse In 37.5 Gm Tube PO PRN PRN Hypoglycemia Protocol Guaifenesin 600 mg 07/27/24 09:35 07/30/24 08:09 Guaifenesin 12 Hr 600 Mg Tabcr PO 600 mg Q12HR PIETER Administration Dextrose 1,000 mls @ 100 mls/hr 07/29/24 15:54 Dextrose 5% 1,000 Ml IVPB PRN PRN Hypoglycemia Protocol Insulin Aspart 2 - 5 units 07/29/24 17:00 07/30/24 12:19 Insulin Aspart (*Bkc) 100 Units/Ml SUB-Q Not Given TIDWM PIETER Protocol Isosorbide Mononitrate 15 mg 07/27/24 09:00 07/30/24 08:09 Isosorbide Mononitrate 15 Mg Tab.Er.24h PO 15 mg DAILY PIETER Administration Metoprolol Succinate 25 mg 07/27/24 09:00 07/30/24 08:09 Metoprolol Succinate Ext Rel 25 Mg Tabcr PO 25 mg DAILY PIETER Administration Mirabegron 25 mg 07/27/24 09:00 07/30/24 08:09 Mirabegron 25 Mg Er Tablet PO 25 mg DAILY PIETER Administration Ondansetron HCl 4 mg 07/27/24 09:26 Ondansetron Inj 4 Mg/2 Ml Vial IV PUSH Q6H PRN Nausea And Vomiting Oseltamivir Phosphate 75 mg 07/27/24 09:00 07/30/24 08:09 Oseltamivir Phosphate 75 Mg Capsule PO 08/01/24 08:59 75 mg Q12HR PIETER Administration Oxybutynin Chloride 10 mg 07/27/24 09:00 07/30/24 08:09 Oxybutynin Chloride Xl 5 Mg Tab.Er.24 PO 10 mg DAILY PIETER Administration Pantoprazole Sodium 40 mg 07/27/24 09:00 07/30/24 08:09 Pantoprazole 40 Mg Tablet PO 40 mg QAM PIETER Administration Polyethylene Glycol 17 gm 07/27/24 09:35 07/30/24 08:09 Polyethylene Glycol 3350 17 Gm Powd.Pack PO 17 gm QAM PIETER Administration Rosuvastatin Calcium 40 mg 07/27/24 09:00 07/30/24 08:09 Rosuvastatin 20 Mg Tablet PO 40 mg DAILY PIETER Administration Radiology Results: ITS Impressions Chest X-Ray 07/26/24 20:15 IMPRESSION: 1. Small lung volumes with no evident acute cardiopulmonary disease. Head CT 07/28/24 14:24 IMPRESSION: 1. Stable extensive nonspecific cerebral white matter disease, which likely represents chronic small vessel ischemic disease. Labs Labs: Laboratory Results - last 24 hr 07/29/24 07/29/24 07/29/24 16:01 16:52 21:09 Sodium Potassium Chloride Carbon Dioxide Anion Gap BUN Creatinine Estim Creat Clear Calc Estimated GFR Glucose POC Capillary Glucose 151 H 138 H Hemoglobin A1c 6.4 H Calcium 07/30/24 07/30/24 07/30/24 07:56 07:59 11:30 Sodium 139 Potassium 3.6 Chloride 105 Carbon Dioxide 25 Anion Gap 9 BUN 14 Creatinine 0.82 Estim Creat Clear Calc 108 Estimated GFR > 60 Glucose 113 H POC Capillary Glucose 116 H 122 H Hemoglobin A1c Calcium 8.8 Quality VTE Prophylaxis VTE prophylaxis: pharmacologic ordered Hospitalist [facility] Advance Care Plan I have confirmed that the patient's Advanced Care Plan is present, code status is documented, or surrogate decision maker is listed in patient medical record.: Yes Medication Reconciliation I have utilized all available resources to obtain, update and review the patients current medications (includes all prescriptions, OTC, herbals, cannabis, and nutritional supplements).: Yes
[2024-07-30 17:06] LABS: Glucose Point of Care 143 mg/dl (65-105)
[2024-07-30 20:40] LABS: Glucose Point of Care 111 mg/dl (65-105)
[2024-07-30 22:00] VITALS: BP 112/60; PULSE 60; RESP 18; TEMP 36.1; O2SAT 96
[2024-07-31 08:14] LABS: Glucose Point of Care 113 mg/dl (65-105)
--- NOTE | 2024-07-31 09:01 | P.PNIM_ITS ---
Progress Note: A&P Assessment and Plan (1) Acute urinary tract infection: Code(s): N39.0 - Urinary tract infection, site not specified Status: Resolved Assessment and Plan: ##- suspected UTI with iv rocephin -->follow UC (2) Generalized muscle weakness: Code(s): M62.81 - Muscle weakness (generalized) Status: Acute Assessment and Plan: -->PT/ OT -obtain notes from [facility] neurologist -history of form of muscular dystrophy -consult neurology here -order gabapentin for possible neuropathy in legs (3) Neuropathy of lower extremity: Code(s): G57.90 - Unspecified mononeuropathy of unspecified lower limb Status: Acute Assessment and Plan: ##Chronic gait disorder - had mri l/s showing Moderate degenerative spondylosis at L5-S1. - Mild degenerative change in the remainder of the lumbar spine, as detailed above. - Minimal grade 1 retrolisthesis of L5 over S1. - PT/ OT - Awaiting neurology review - pt currently lives alone carer comes to help - PT/ OT ordered (4) IFG (impaired fasting glucose): Code(s): R73.01 - Impaired fasting glucose Status: Inactive Assessment and Plan: HgA1C - 6.4 (5) CAD (coronary artery disease): Qualifiers: Associated angina: unspecified whether angina present Coronary Disease- Associated Artery/Lesion type: [place] artery [place] vs. transplanted heart: [place] heart Qualified Code(s): I25.10 - Atherosclerotic heart disease of [place] coronary artery without angina pectoris Code(s): I25.10 - Atherosclerotic heart disease of [place] coronary artery without angina pectoris Status: Inactive Assessment and Plan: continue home medication (6) Flu: Code(s): J11.1 - Influenza due to unidentified influenza virus with other respiratory manifestations Status: Acute Assessment and Plan: # flu supportive care # continue tamiflu Plan #overactive bladder- oxybuynin Time Spent With Patient Time with patient: Greater than 35 minutes (40 minutes) Subjective Date/time seen: 07/31/24 09:01 Interval history: Patient has 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 Patient has been feeling more weak MRI ordered neurology review consulted, PT ordered. Patient usually goes to [facility] awaiting old notes from there. Patient reports that he feels ok today, report feeling weak but no distress. Denies any headaches, chest pain, N/V/D, or distress. Review of Systems Review of Systems: All systems reviewed & are unremarkable except as noted in HPI and below ROS unobtainable: Yes unobtainable due to medical condition (Leukodystrophy) Constitutional: Constitutional: Reports as per HPI and Reports no additional constitutional complaints Eyes: Eyes: Reports as per HPI and Reports no additional eye complaints ENT: Reports system reviewed and no additional complaints, except as documented Cardiovascular: Cardiovascular: Reports as per HPI and Reports no additional cardiovascular complaints Respiratory: Respiratory: Reports as per HPI and Reports no additional respiratory complaints Gastrointestinal: Gastrointestinal: Reports as per HPI and Reports no additional gastrointestinal complaints Musculoskeletal: Musculoskeletal: Reports as per HPI Integumentary/Breasts: Skin/Breast: Reports system reviewed and no additional complaints, except as docu Neurologic: Reports system reviewed and no additional complaints, except as documented Psychiatric: Psychiatric: Reports no additional psychiatric complaints Exam Const: General: cooperative, comfortable, alert, awake, Physically active and overweight Nutritional Appearance: overweight Orientation/consciousness: oriented to person, oriented to place and oriented to time Limitations: physical limitations HENMT: Head: normal to inspection and normocephalic Other: Mucous membranes are tacky, no oral pharyngeal erythema, crowded posterior oropharynx Eyes: General: appearance normal, both eyes and all related structures Other: Pupils are equal and reactive, no scleral icterus, no conjunctival pallor Neck: Neck: normal visual inspection, full ROM and no lymphadenopathy Other: Large neck circumference, no thyromegaly, trachea min Chest: Chest palpation & inspection: normal inspection of the chest Resp: Effort & Inspection: normal respiratory effort Auscultation: clear to auscultation bilaterally Other: Clear to auscultation bilaterally no tachypnea but shallow respiration Cardio: Rate: regular rate Rhythm: regular rhythm Heart sounds: S1 normal heart sound present and S2 normal heart sound present Peripheral pulses: Peripheral pulses 2+ throughout Other: Regular rate, regular rhythm, 2+ bilateral radial pedal pulses GI: Inspection: normal to inspection Auscultation: normal bowel sounds Other: Soft, distended, nontender, normal active bowel sounds, abdominal respirations : Other: Pure wick catheter in place with empty canister Skin: General skin exam: no rashes or lesions noted Other: No jaundice, no pallor, no rashes Neuro: General: oriented to person, oriented to place, oriented to time and moves all extremities Cranial nerves: Yes CN's II-XII intact bilaterally Cognition (Neuro): normal cognition Speech: normal speech Gait exam (Neuro): Unable to assess gait Other: Patient is alert oriented to person, place and year, confused as to the month he thought the month was October, and no facial asymmetry, somewhat slowed responses, answered was questions in yes and no responses followed commands Extrem: General: no pedal edema, no calf tenderness and other (limited use of extremities, use of seth lift) Other: Bilateral weakness 4/5 in legs Psych: Mental Status: mental status grossly normal Speech and movement: Normal speech and movement present Affect: normal affect Attitude: cooperative Thought process: Normal thought process present Other: Flat affect, cooperative Objective Data Vital Signs Vital Signs: Vital Signs - 24 hr 07/30/24 14:00 07/30/24 22:00 Temperature 97.6 F 97.0 F L Pulse Rate 60 60 Respiratory Rate 18 18 Blood Pressure 103/75 112/60 Pulse Oximetry 95 96 Intake/Output Intake/Output: Intake & Output 07/28/24 07/29/24 07/30/24 07/31/24 23:59 23:59 23:59 23:59 Intake Total 1276 593 960 Output Total 1200 1300 550 490 Balance 76 -707 410 -490 Meds/Results Medications: Active Medications Generic Name Dose Route Start Last Admin Trade Name Freq PRN Reason Stop Dose Admin Acetaminophen 650 mg 07/27/24 02:00 Acetaminophen 325 Mg Tablet PO Q4H PRN Mild Pain (1-3) or Fever Aspirin 81 mg 07/27/24 09:00 07/30/24 08:08 Aspirin 81 Mg Chewable Tablet PO 81 mg DAILY PIETER Administration Dextrose 12.5 gm 07/29/24 15:54 Dextrose 50% 25 Gm/50 Ml Syringe IV PUSH PRN PRN Hypoglycemia Protocol Enoxaparin Sodium 40 mg 07/27/24 09:00 07/30/24 08:08 Enoxaparin 40 Mg/0.4 Ml Syringe SUB-Q 40 mg DAILY PIETER Administration Glucagon 1 mg 07/29/24 15:54 Glucagon For Inj 1 Mg Vial IM PRN PRN Hypoglycemia Protocol Glucose 15 gm 07/29/24 15:54 Glucose Oral Gel 15 Gm Of Glucse In 37.5 Gm Tube PO PRN PRN Hypoglycemia Protocol Guaifenesin 600 mg 07/27/24 09:35 07/30/24 20:28 Guaifenesin 12 Hr 600 Mg Tabcr PO 600 mg Q12HR PIETER Administration Dextrose 1,000 mls @ 100 mls/hr 07/29/24 15:54 Dextrose 5% 1,000 Ml IVPB PRN PRN Hypoglycemia Protocol Insulin Aspart 2 - 5 units 07/29/24 17:00 07/30/24 17:08 Insulin Aspart (*Bkc) 100 Units/Ml SUB-Q Not Given TIDWM [facility] Protocol Isosorbide Mononitrate 15 mg 07/27/24 09:00 07/30/24 08:09 Isosorbide Mononitrate 15 Mg Tab.Er.24h PO 15 mg DAILY PIETER Administration Metoprolol Succinate 25 mg 07/27/24 09:00 07/30/24 08:09 Metoprolol Succinate Ext Rel 25 Mg Tabcr PO 25 mg DAILY PIETER Administration Mirabegron 25 mg 07/27/24 09:00 07/30/24 08:09 Mirabegron 25 Mg Er Tablet PO 25 mg DAILY PIETER Administration Ondansetron HCl 4 mg 07/27/24 09:26 Ondansetron Inj 4 Mg/2 Ml Vial IV PUSH Q6H PRN Nausea And Vomiting Oseltamivir Phosphate 75 mg 07/27/24 09:00 07/30/24 20:28 Oseltamivir Phosphate 75 Mg Capsule PO 08/01/24 08:59 75 mg Q12HR PIETER Administration Oxybutynin Chloride 10 mg 07/27/24 09:00 07/30/24 08:09 Oxybutynin Chloride Xl 5 Mg Tab.Er.24 PO 10 mg DAILY PIETER Administration Pantoprazole Sodium 40 mg 07/27/24 09:00 07/30/24 08:09 Pantoprazole 40 Mg Tablet PO 40 mg QAM PITEER Administration Polyethylene Glycol 17 gm 07/27/24 09:35 07/30/24 08:09 Polyethylene Glycol 3350 17 Gm Powd.Pack PO 17 gm QAM PIETER Administration Rosuvastatin Calcium 40 mg 07/27/24 09:00 07/30/24 08:09 Rosuvastatin 20 Mg Tablet PO 40 mg DAILY PIETER Administration Radiology Results: ITS Impressions Chest X-Ray 07/26/24 20:15 IMPRESSION: 1. Small lung volumes with no evident acute cardiopulmonary disease. Head CT 07/28/24 14:24 IMPRESSION: 1. Stable extensive nonspecific cerebral white matter disease, which likely represents chronic small vessel ischemic disease. Labs Labs: Laboratory Results - last 24 hr 07/30/24 07/30/24 07/30/24 11:30 16:50 20:36 POC Capillary Glucose 122 H 143 H 111 H 07/31/24 08:04 POC Capillary Glucose 113 H Quality VTE Prophylaxis VTE prophylaxis: pharmacologic ordered Hospitalist [facility] Advance Care Plan I have confirmed that the patient's Advanced Care Plan is present, code status is documented, or surrogate decision maker is listed in patient medical record.: Yes Medication Reconciliation I have utilized all available resources to obtain, update and review the patients current medications (includes all prescriptions, OTC, herbals, cannabis, and nutritional supplements).: Yes
--- NOTE | 2024-07-31 09:27 | PCPTNOTE ---
On 07/31/24, the student, MEAGAN Brown, provided care and completed [facility] documentation on this patient. I have reviewed the student's documentation and agree with the findings.
[2024-07-31 09:30] VITALS: BP 124/66; PULSE 51; RESP 16; TEMP 36.3; O2SAT 93
[2024-07-31] MEDS: oxyBUTYnin CHLORIDE XL 5 MG TAB.ER.24 10 MG PO (10:31)
[2024-07-31] MEDS: polyethylene glycoL 3350 17 GM POWD.PACK PO (10:31)
[2024-07-31] MEDS: PANTOPRAZOLE 40 MG TABLET PO (10:35)
[2024-07-31] MEDS: MIRABEGRON 25 MG ER TABLET PO (10:35)
[2024-07-31] MEDS: OSELTAMIVIR PHOSPHATE 75 MG CAPSULE PO ×2 (10:35→21:36)
[2024-07-31] MEDS: ASPIRIN 81 MG CHEWABLE TABLET PO (10:35)
[2024-07-31] MEDS: ROSUVASTATIN 20 MG TABLET 40 MG PO (10:35)
[2024-07-31] MEDS: ENOXAPARIN 40 MG/0.4 ML SYRINGE SUB-Q (10:36)
[2024-07-31] MEDS: ISOSORBIDE MONONITRATE 15 MG TAB.ER.24H PO (10:37)
[2024-07-31 10:39] VITALS: PULSE 58
[2024-07-31] MEDS: METOPROLOL SUCCINATE EXT REL 25 MG TABCR PO (10:39)
[2024-07-31 12:18] LABS: Glucose Point of Care 119 mg/dl (65-105)
[2024-07-31 14:41] VITALS: BP 118/73; PULSE 55; RESP 17; TEMP 36.3; O2SAT 96
[2024-07-31 17:25] LABS: Glucose Point of Care 119 mg/dl (65-105)
[2024-07-31 20:02] VITALS: BP 106/50; PULSE 58; RESP 16; TEMP 36.3; O2SAT 98
[2024-07-31] MEDS: guaiFENesin 12 HR 600 MG TABCR PO (21:36)
[2024-08-01 04:35] VITALS: BP 127/82; PULSE 57; RESP 16; TEMP 36.8; O2SAT 98
--- NOTE | 2024-08-01 07:47 | PM.IMPN ---
Progress Note: A&P Assessment and Plan (1) Acute urinary tract infection: Code(s): N39.0 - Urinary tract infection, site not specified Status: Resolved Assessment and Plan: ##- suspected UTI with iv rocephin -->UC noted Proteus Mirabilis (2) Generalized muscle weakness: Code(s): M62.81 - Muscle weakness (generalized) Status: Acute Assessment and Plan: -->PT/ OT -obtain notes from [facility] neurologist -history of form of muscular dystrophy -consult neurology here -order gabapentin for possible neuropathy in legs (3) Neuropathy of lower extremity: Code(s): G57.90 - Unspecified mononeuropathy of unspecified lower limb Status: Acute Assessment and Plan: ##Chronic gait disorder - had mri l/s showing Moderate degenerative spondylosis at L5-S1. - Mild degenerative change in the remainder of the lumbar spine, as detailed above. - Minimal grade 1 retrolisthesis of L5 over S1. - PT/ OT - Awaiting neurology review - pt currently lives alone carer comes to help - PT/ OT ordered (4) IFG (impaired fasting glucose): Code(s): R73.01 - Impaired fasting glucose Status: Inactive Assessment and Plan: HgA1C - 6.4 (5) CAD (coronary artery disease): Qualifiers: Associated angina: unspecified whether angina present Coronary Disease-Associated Artery/Lesion type: [place] artery [place] vs. transplanted heart: [place] heart Qualified Code(s): I25.10 - Atherosclerotic heart disease of [place] coronary artery without angina pectoris Code(s): I25.10 - Atherosclerotic heart disease of [place] coronary artery without angina pectoris Status: Inactive Assessment and Plan: continue home medication (6) Flu: Code(s): J11.1 - Influenza due to unidentified influenza virus with other respiratory manifestations Status: Acute Assessment and Plan: # flu supportive care # continue tamiflu total of 5 days Plan Plan to discharge to Skilled rehab when available. 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 Patient has been feeling more weak MRI ordered neurology review consulted, PT ordered. Patient reports that he feels ok today, report feeling better but no distress. Denies any headaches, chest pain, N/V/D, or distress. Review of Systems Review of Systems: All systems reviewed & are unremarkable except as noted in HPI and below ROS unobtainable: Yes unobtainable due to medical condition (Leukodystrophy) Constitutional: Constitutional: Reports as per HPI and Reports no additional constitutional complaints Eyes: Eyes: Reports as per HPI and Reports no additional eye complaints ENT: Reports system reviewed and no additional complaints, except as documented Cardiovascular: Cardiovascular: Reports as per HPI and Reports no additional cardiovascular complaints Respiratory: Respiratory: Reports as per HPI and Reports no additional respiratory complaints Gastrointestinal: Gastrointestinal: Reports as per HPI and Reports no additional gastrointestinal complaints Musculoskeletal: Musculoskeletal: Reports as per HPI Integumentary/Breasts: Skin/Breast: Reports system reviewed and no additional complaints, except as docu Neurologic: Reports system reviewed and no additional complaints, except as documented Psychiatric: Psychiatric: Reports no additional psychiatric complaints Exam Const: General: cooperative, healthy appearing, comfortable, alert, awake, Physically active and overweight; No in distress Nutritional Appearance: overweight Orientation/consciousness: oriented to person, oriented to place and oriented to time Limitations: physical limitations Other: No acute distress, obese, appears stated age HENMT: Head: normal to inspection and normocephalic Other: Mucous membranes are tacky, no oral pharyngeal erythema, crowded posterior oropharynx Eyes: General: appearance normal, both eyes and all related structures Other: Pupils are equal and reactive, no scleral icterus, no conjunctival pallor Neck: Neck: normal visual inspection, full ROM and no lymphadenopathy Other: Large neck circumference, no thyromegaly, trachea min Chest: Chest palpation & inspection: normal inspection of the chest Resp: Effort & Inspection: normal respiratory effort and no respiratory distress Auscultation: clear to auscultation bilaterally, no rhonchi and no wheezes Other: Clear to auscultation bilaterally no tachypnea but shallow respiration Cardio: Rate: regular rate Rhythm: regular rhythm Heart sounds: S1 normal heart sound present and S2 normal heart sound present Peripheral pulses: Peripheral pulses 2+ throughout Other: Regular rate, regular rhythm, 2+ bilateral radial pedal pulses GI: Inspection: normal to inspection Auscultation: normal bowel sounds Other: Soft, distended, nontender, normal active bowel sounds, abdominal respirations : Other: Pure wick catheter in place with empty canister Skin: General skin exam: no rashes or lesions noted Other: No jaundice, no pallor, no rashes Neuro: General: oriented to person, oriented to place, oriented to time, moves all extremities and Unable to assess gait Cranial nerves: Yes CN's II-XII intact bilaterally Cognition (Neuro): normal cognition Speech: normal speech Gait exam (Neuro): Unable to assess gait Other: Patient is alert oriented to person, place and year, confused as to the month he thought the month was October, and no facial asymmetry, somewhat slowed responses, answered was questions in yes and no responses followed commands Extrem: General: no pedal edema, no calf tenderness and other (limited use of extremities, use of seth lift) Other: Bilateral weakness 4/5 in legs Psych: Mental Status: mental status grossly normal Speech and movement: Normal speech and movement present Affect: normal affect Attitude: cooperative Thought process: Normal thought process present Other: Flat affect, cooperative Objective Data Vital Signs Vital Signs: Vital Signs - 24 hr 07/31/24 08:00 07/31/24 09:30 07/31/24 10:39 Temperature 97.3 F L Pulse Rate 51 L 58 L Respiratory Rate 16 Blood Pressure 124/66 Pulse Oximetry 93 Oxygen Delivery Room Air 07/31/24 14:41 07/31/24 20:02 08/01/24 04:35 Temperature 97.4 F L 97.3 F L 98.2 F Pulse Rate 55 L 58 L 57 L Respiratory Rate 17 16 16 Blood Pressure 118/73 106/50 L 127/82 Pulse Oximetry 96 98 98 Oxygen Delivery Intake/Output Intake/Output: Intake & Output 07/29/24 07/30/24 07/31/24 08/01/24 23:59 23:59 23:59 23:59 Intake Total 846 024 2642 550 Output Total 1300 550 815 400 Balance -707 410 695 150 Meds/Results Medications: Active Medications Generic Name Dose Route Start Last Admin Trade Name Freq PRN Reason Stop Dose Admin Acetaminophen 650 mg 07/27/24 02:00 Acetaminophen 325 Mg Tablet PO Q4H PRN Mild Pain (1-3) or Fever Aspirin 81 mg 07/27/24 09:00 07/31/24 10:35 Aspirin 81 Mg Chewable Tablet PO 81 mg DAILY PIETER Administration Dextrose 12.5 gm 07/29/24 15:54 Dextrose 50% 25 Gm/50 Ml Syringe IV PUSH PRN PRN Hypoglycemia Protocol Enoxaparin Sodium 40 mg 07/27/24 09:00 07/31/24 10:36 Enoxaparin 40 Mg/0.4 Ml Syringe SUB-Q 40 mg DAILY PIETER Administration Glucagon 1 mg 07/29/24 15:54 Glucagon For Inj 1 Mg Vial IM PRN PRN Hypoglycemia Protocol Glucose 15 gm 07/29/24 15:54 Glucose Oral Gel 15 Gm Of Glucse In 37.5 Gm Tube PO PRN PRN Hypoglycemia Protocol Guaifenesin 600 mg 07/27/24 09:35 07/31/24 21:36 Guaifenesin 12 Hr 600 Mg Tabcr PO 600 mg Q12HR PIETER Administration Dextrose 1,000 mls @ 100 mls/hr 07/29/24 15:54 Dextrose 5% 1,000 Ml IVPB PRN PRN Hypoglycemia Protocol Insulin Aspart 2 - 5 units 07/29/24 17:00 07/31/24 17:28 Insulin Aspart (*Bkc) 100 Units/Ml SUB-Q Not Given TIDWM PIETER Protocol Isosorbide Mononitrate 15 mg 07/27/24 09:00 07/31/24 10:37 Isosorbide Mononitrate 15 Mg Tab.Er.24h PO 15 mg DAILY PIETER Administration Metoprolol Succinate 25 mg 07/27/24 09:00 07/31/24 10:39 Metoprolol Succinate Ext Rel 25 Mg Tabcr PO 25 mg DAILY PIETER Administration Mirabegron 25 mg 07/27/24 09:00 07/31/24 10:35 Mirabegron 25 Mg Er Tablet PO 25 mg DAILY PIETER Administration Ondansetron HCl 4 mg 07/27/24 09:26 Ondansetron Inj 4 Mg/2 Ml Vial IV PUSH Q6H PRN Nausea And Vomiting Oseltamivir Phosphate 75 mg 07/27/24 09:00 07/31/24 21:36 Oseltamivir Phosphate 75 Mg Capsule PO 08/01/24 08:59 75 mg Q12HR PIETER Administration Oxybutynin Chloride 10 mg 07/27/24 09:00 07/31/24 10:31 Oxybutynin Chloride Xl 5 Mg Tab.Er.24 PO 10 mg DAILY PIETER Administration Pantoprazole Sodium 40 mg 07/27/24 09:00 07/31/24 10:35 Pantoprazole 40 Mg Tablet PO 40 mg QAM PIETER Administration Polyethylene Glycol 17 gm 07/27/24 09:35 07/31/24 10:31 Polyethylene Glycol 3350 17 Gm Powd.Pack PO 17 gm QAM PIETER Administration Rosuvastatin Calcium 40 mg 07/27/24 09:00 07/31/24 10:35 Rosuvastatin 20 Mg Tablet PO 40 mg DAILY PIETER Administration Radiology Results: ITS Impressions Chest X-Ray 07/26/24 20:15 IMPRESSION: 1. Small lung volumes with no evident acute cardiopulmonary disease. Head CT 07/28/24 14:24 IMPRESSION: 1. Stable extensive nonspecific cerebral white matter disease, which likely represents chronic small vessel ischemic disease. Labs Labs: Laboratory Results - last 24 hr 07/31/24 07/31/24 07/31/24 08:04 12:12 17:23 POC Capillary Glucose 113 H 119 H 119 H Quality VTE Prophylaxis VTE prophylaxis: pharmacologic ordered Hospitalist [facility] Advance Care Plan I have confirmed that the patient's Advanced Care Plan is present, code status is documented, or surrogate decision maker is listed in patient medical record.: Yes Medication Reconciliation I have utilized all available resources to obtain, update and review the patients current medications (includes all prescriptions, OTC, herbals, cannabis, and nutritional supplements).: Yes
[2024-08-01 08:49] LABS: Glucose Point of Care 144 mg/dl (65-105)
[2024-08-01 10:08] VITALS: PULSE 72
[2024-08-01] MEDS: METOPROLOL SUCCINATE EXT REL 25 MG TABCR PO (10:08)
[2024-08-01] MEDS: oxyBUTYnin CHLORIDE XL 5 MG TAB.ER.24 10 MG PO (10:08)
[2024-08-01] MEDS: guaiFENesin 12 HR 600 MG TABCR PO ×2 (10:08→21:43)
[2024-08-01] MEDS: PANTOPRAZOLE 40 MG TABLET PO (10:08)
[2024-08-01] MEDS: ISOSORBIDE MONONITRATE 15 MG TAB.ER.24H PO (10:08)
[2024-08-01] MEDS: ASPIRIN 81 MG CHEWABLE TABLET PO (10:09)
[2024-08-01] MEDS: ENOXAPARIN 40 MG/0.4 ML SYRINGE SUB-Q (10:10)
[2024-08-01] MEDS: ROSUVASTATIN 20 MG TABLET 40 MG PO (10:12)
[2024-08-01] MEDS: MIRABEGRON 25 MG ER TABLET PO (10:12)
[2024-08-01] MEDS: polyethylene glycoL 3350 17 GM POWD.PACK PO (10:12)
[2024-08-01 11:56] LABS: Glucose Point of Care 127 mg/dl (65-105)
[2024-08-01 14:00] VITALS: BP 101/64; PULSE 59; RESP 18; TEMP 36.6; O2SAT 96
[2024-08-01 17:15] LABS: Glucose Point of Care 118 mg/dl (65-105)
[2024-08-01 22:00] VITALS: BP 121/81; PULSE 55; RESP 16; TEMP 36.8; O2SAT 99
[2024-08-02 06:00] VITALS: BP 123/72; PULSE 55; RESP 16; TEMP 36.4; O2SAT 97
[2024-08-02 07:45] LABS: Glucose Point of Care 122 mg/dl (65-105)
[2024-08-02] MEDS: ENOXAPARIN 40 MG/0.4 ML SYRINGE SUB-Q (10:14)
[2024-08-02] MEDS: MIRABEGRON 25 MG ER TABLET PO (10:14)
[2024-08-02] MEDS: ROSUVASTATIN 20 MG TABLET 40 MG PO (10:14)
[2024-08-02] MEDS: ASPIRIN 81 MG CHEWABLE TABLET PO (10:14)
[2024-08-02 10:15] VITALS: PULSE 60
[2024-08-02] MEDS: PANTOPRAZOLE 40 MG TABLET PO (10:15)
[2024-08-02] MEDS: guaiFENesin 12 HR 600 MG TABCR PO ×2 (10:15→21:07)
[2024-08-02] MEDS: ISOSORBIDE MONONITRATE 15 MG TAB.ER.24H PO (10:15)
[2024-08-02] MEDS: oxyBUTYnin CHLORIDE XL 5 MG TAB.ER.24 10 MG PO (10:15)
[2024-08-02] MEDS: METOPROLOL SUCCINATE EXT REL 25 MG TABCR PO (10:15)
[2024-08-02 11:54] LABS: Glucose Point of Care 127 mg/dl (65-105)
--- NOTE | 2024-08-02 13:31 | P.PNIM_ITS ---
Progress Note: A&P Assessment and Plan (1) Acute urinary tract infection: Code(s): N39.0 - Urinary tract infection, site not specified Status: Resolved Assessment and Plan: ##- suspected UTI with iv rocephin -->UC noted Proteus Mirabilis 08/02/24: * EMR noted that pt is NOT on Rocephin. He received only two doses on historical review and those were on 07/27 and 07/29. He has been without any abx coverage since the for positive growth of Proteus with pansensitivity with exception of Macrobid. * Augmentin 875 mg po BID has been ordered at this time to continue for ten days. * Pt not meeting sepsis criteria. (2) Generalized muscle weakness: Code(s): M62.81 - Muscle weakness (generalized) Status: Acute Assessment and Plan: -->PT/ OT -obtain notes from [facility] neurologist -history of form of muscular dystrophy -consult neurology here -order gabapentin for possible neuropathy in legs 08/02/24: * Continue Gabapentin * Continue fall precautions * Awaiting Neurology consult. * Awaiting PT/OT eval and placement. (3) Neuropathy of lower extremity: Code(s): G57.90 - Unspecified mononeuropathy of unspecified lower limb Status: Acute Assessment and Plan: ##Chronic gait disorder - had mri l/s showing Moderate degenerative spondylosis at L5-S1. - Mild degenerative change in the remainder of the lumbar spine, as detailed above. - Minimal grade 1 retrolisthesis of L5 over S1. - PT/ OT - Awaiting neurology review - pt currently lives alone carer comes to help - PT/ OT ordered 08/02/24: * Awaiting Neurology evaluation and their recommendations. * Fall precautions (4) IFG (impaired fasting glucose): Code(s): R73.01 - Impaired fasting glucose Status: Inactive Assessment and Plan: HgA1C - 6.4 08/02/24: * Continue current regimen. (5) CAD (coronary artery disease): Qualifiers: Coronary Disease-Associated Artery/Lesion type: [place] artery [place] vs. transplanted heart: [place] heart Associated angina: unspecified whether angina present Qualified Code(s): I25.10 - Atherosclerotic heart disease of [place] coronary artery without angina pectoris Code(s): I25.10 - Atherosclerotic heart disease of [place] coronary artery without angina pectoris Status: Inactive Assessment and Plan: continue home medication (6) Flu: Code(s): J11.1 - Influenza due to unidentified influenza virus with other respiratory manifestations Status: Acute Assessment and Plan: # flu supportive care # continue tamiflu total of 5 days 08/02/24: * Continue supportive care. * Monitor VS and labs * Not requiring any supplemental oxygen at this time. Plan Plan to discharge to Skilled rehab when available and has had Neurology consult and is deemed stable for discharge by them. Time Spent With Patient Time with patient: 15 - 25 minutes Subjective Date/time seen: 08/02/24 1055 Interval history: This pt is examined at the bedside in interval assessment. He is on room air, without acute complaints and does not appear to be in any acute distress. Pt is noted to be a full assist due to his weakness. He is awaiting PT evaluation and placement and Neurology consult. Review of Systems Review of Systems: All systems reviewed & are unremarkable except as noted in HPI and below Exam Narrative: Weight 117.1 kg BMI 37 Const: General: cooperative, healthy appearing, comfortable, alert, awake, Physically active and overweight; No in distress Nutritional Appearance: overweight Orientation/consciousness: oriented to person, oriented to place and oriented to time Limitations: physical limitations Other: No acute distress, obese, appears stated age HENMT: Head: normal to inspection and normocephalic Other: Mucous membranes are tacky, no oral pharyngeal erythema, crowded posterior oropharynx Eyes: General: appearance normal, both eyes and all related structures Other: Pupils are equal and reactive, no scleral icterus, no conjunctival pallor Neck: Neck: normal visual inspection, full ROM and no lymphadenopathy Other: Large neck circumference, no thyromegaly, trachea min Chest: Chest palpation & inspection: normal inspection of the chest Resp: Effort & Inspection: normal respiratory effort and no respiratory distress Auscultation: clear to auscultation bilaterally, no rhonchi and no wheezes Other: Clear to auscultation bilaterally no tachypnea but shallow respiration Cardio: Rate: regular rate Rhythm: regular rhythm Heart sounds: S1 normal heart sound present and S2 normal heart sound present Peripheral pulses: Peripheral pulses 2+ throughout Other: Regular rate, regular rhythm, 2+ bilateral radial pedal pulses GI: Inspection: normal to inspection Auscultation: normal bowel sounds Other: Soft, distended, nontender, normal active bowel sounds, abdominal respirations : Other: Pure wick catheter in place with empty canister Skin: General skin exam: no rashes or lesions noted Other: No jaundice, no pallor, no rashes Neuro: General: oriented to person, oriented to place, oriented to time, moves all extremities and Unable to assess gait Cranial nerves: Yes CN's II-XII intact bilaterally Cognition (Neuro): normal cognition Speech: normal speech Gait exam (Neuro): Unable to assess gait Other: Patient is alert oriented to person, place and year, confused as to the month he thought the month was October, and no facial asymmetry, somewhat slowed responses, answered was questions in yes and no responses followed commands Extrem: General: no pedal edema, no calf tenderness and other (limited use of extremities, use of seth lift) Other: Bilateral weakness 4/5 in legs Psych: Mental Status: mental status grossly normal Speech and movement: Normal speech and movement present Affect: normal affect Attitude: cooperative Thought process: Normal thought process present Other: Flat affect, cooperative Objective Data Vital Signs Vital Signs: Vital Signs - 24 hr 08/01/24 14:00 08/01/24 22:00 08/02/24 06:00 Temperature 97.8 F 98.3 F 97.5 F L Pulse Rate 59 L 55 L 55 L Respiratory Rate 18 16 16 Blood Pressure 101/64 121/81 123/72 Pulse Oximetry 96 99 97 08/02/24 10:15 Temperature Pulse Rate 60 Respiratory Rate Blood Pressure Pulse Oximetry Intake/Output Intake/Output: Intake & Output 07/30/24 07/31/24 08/01/24 08/02/24 23:59 23:59 23:59 23:59 Intake Total 960 1510 1270 360 Output Total 550 815 400 825 Balance 410 695 870 -465 Meds/Results Medications: Active Medications Generic Name Dose Route Start Last Admin Trade Name Freq PRN Reason Stop Dose Admin Acetaminophen 650 mg 07/27/24 02:00 Acetaminophen 325 Mg Tablet PO Q4H PRN Mild Pain (1-3) or Fever Aspirin 81 mg 07/27/24 09:00 08/02/24 10:14 Aspirin 81 Mg Chewable Tablet PO 81 mg DAILY PIETER Administration Dextrose 12.5 gm 07/29/24 15:54 Dextrose 50% 25 Gm/50 Ml Syringe IV PUSH PRN PRN Hypoglycemia Protocol Enoxaparin Sodium 40 mg 07/27/24 09:00 08/02/24 10:14 Enoxaparin 40 Mg/0.4 Ml Syringe SUB-Q 40 mg DAILY PIETER Administration Glucagon 1 mg 07/29/24 15:54 Glucagon For Inj 1 Mg Vial IM PRN PRN Hypoglycemia Protocol Glucose 15 gm 07/29/24 15:54 Glucose Oral Gel 15 Gm Of Glucse In 37.5 Gm Tube PO PRN PRN Hypoglycemia Protocol Guaifenesin 600 mg 07/27/24 09:35 08/02/24 10:15 Guaifenesin 12 Hr 600 Mg Tabcr PO 600 mg Q12HR PIETER Administration Dextrose 1,000 mls @ 100 mls/hr 07/29/24 15:54 Dextrose 5% 1,000 Ml IVPB PRN PRN Hypoglycemia Protocol Insulin Aspart 2 - 5 units 07/29/24 17:00 08/02/24 12:12 Insulin Aspart (*Bkc) 100 Units/Ml SUB-Q Not Given TIDWM PIETER Protocol Isosorbide Mononitrate 15 mg 07/27/24 09:00 08/02/24 10:15 Isosorbide Mononitrate 15 Mg Tab.Er.24h PO 15 mg DAILY PIETER Administration Metoprolol Succinate 25 mg 07/27/24 09:00 08/02/24 10:15 Metoprolol Succinate Ext Rel 25 Mg Tabcr PO 25 mg DAILY PIETER Administration Mirabegron 25 mg 07/27/24 09:00 08/02/24 10:14 Mirabegron 25 Mg Er Tablet PO 25 mg DAILY PIETER Administration Ondansetron HCl 4 mg 07/27/24 09:26 Ondansetron Inj 4 Mg/2 Ml Vial IV PUSH Q6H PRN Nausea And Vomiting Oxybutynin Chloride 10 mg 07/27/24 09:00 08/02/24 10:15 Oxybutynin Chloride Xl 5 Mg Tab.Er.24 PO 10 mg DAILY PIETER Administration Pantoprazole Sodium 40 mg 07/27/24 09:00 08/02/24 10:15 Pantoprazole 40 Mg Tablet PO 40 mg QAM PIETER Administration Polyethylene Glycol 17 gm 07/27/24 09:35 08/02/24 10:15 Polyethylene Glycol 3350 17 Gm Powd.Pack PO Not Given QAM PIETER Rosuvastatin Calcium 40 mg 07/27/24 09:00 08/02/24 10:14 Rosuvastatin 20 Mg Tablet PO 40 mg DAILY PIETER Administration Radiology Results: ITS Impressions Chest X-Ray 07/26/24 20:15 IMPRESSION: 1. Small lung volumes with no evident acute cardiopulmonary disease. Head CT 07/28/24 14:24 IMPRESSION: 1. Stable extensive nonspecific cerebral white matter disease, which likely represents chronic small vessel ischemic disease. Labs Labs: Laboratory Results - last 24 hr 08/01/24 08/02/24 08/02/24 17:03 07:35 11:42 POC Capillary Glucose 118 H 122 H 127 H Quality VTE Prophylaxis VTE prophylaxis: pharmacologic ordered
[2024-08-02 14:00] VITALS: BP 136/68; PULSE 55; RESP 16; TEMP 36.3; O2SAT 96
[2024-08-02] MEDS: AMOXICILLIN/CLAVULANATE K 875-125 MG TAB 1 TABLET PO ×2 (16:46→21:07)
[2024-08-02 17:08] LABS: Glucose Point of Care 155 mg/dl (65-105)
[2024-08-02 21:40] LABS: Glucose Point of Care 142 mg/dl (65-105)
[2024-08-02 22:00] VITALS: BP 117/76; PULSE 60; RESP 18; TEMP 36.8; O2SAT 96
[2024-08-03 06:00] VITALS: BP 128/90; PULSE 60; RESP 18; TEMP 36.8; O2SAT 100
[2024-08-03 07:11] LABS: Basophils Percent Auto 0.5 % (0.2-1.2); Eosinophils Absolute Auto 0.3 K/mm3 (0-0.3); Eosinophils Percent Auto 3.7 % (0-4.4); Hematocrit 43.7 % (42.0-52.0); Immature Granulocyte Absolute 0.04 K/mm3 (0.00-0.031); Immature Granulocyte Percent A 0.5 % (0-0.5); Lymphocytes Absolute Auto 3.04 K/mm3 (0.9-3.2); Lymphocytes Percent Auto 35.3 % (18.3-44.2); Mean Corpuscular Volume 87.4 fl (80-100); Monocytes Absolute Auto 0.6 K/mm3 (0.1-0.6); Neutrophils Absolute Auto 4.6 K/mm3 (1.3-6.7); Platelet Count Result 313 k/mm3 (150-375); Red Cell Distribution Width 13.4 % (11.5-14.5); White Blood Count 8.6 K/mm3 (4.5-10.0)
[2024-08-03 07:21] LABS: Alanine Aminotransferase 30 U/L (6-50); Albumin Level 4.1 g/dL (3.5-5.1); Alkaline Phosphatase 84 U/L (38-126); Anion Gap 12 mmol/L (4-12); Aspartate Amino Transferase 32 U/L (17-59); Bilirubin,Total 0.9 mg/dL (0.2-1.3); Blood Urea Nitrogen 14 mg/dL (9-20); Calcium 9.2 mg/dL (8.4-10.2); Carbon Dioxide 24 mmol/L (22-30); Chloride 104 mmol/L (98-107); Estimated CRCL calculation 102 ml/min; Estimated Glomerular Filt Rate > 60; Glucose 127 mg/dL (65-110); Magnesium 2.3 mg/dL (1.6-2.3); Potassium 4.1 mmol/L (3.4-5.0); Sodium 140 mmol/L (137-145)
[2024-08-03 07:53] LABS: Glucose Point of Care 120 mg/dl (65-105)
[2024-08-03] MEDS: guaiFENesin 12 HR 600 MG TABCR PO ×2 (08:17→20:37)
[2024-08-03] MEDS: AMOXICILLIN/CLAVULANATE K 875-125 MG TAB 1 TABLET PO ×2 (08:17→20:37)
[2024-08-03] MEDS: ROSUVASTATIN 20 MG TABLET 40 MG PO (08:17)
[2024-08-03] MEDS: ISOSORBIDE MONONITRATE 15 MG TAB.ER.24H PO (08:17)
[2024-08-03] MEDS: METOPROLOL SUCCINATE EXT REL 25 MG TABCR PO (08:18)
[2024-08-03] MEDS: ENOXAPARIN 40 MG/0.4 ML SYRINGE SUB-Q (08:18)
[2024-08-03] MEDS: oxyBUTYnin CHLORIDE XL 5 MG TAB.ER.24 10 MG PO (08:18)
[2024-08-03] MEDS: PANTOPRAZOLE 40 MG TABLET PO (08:18)
[2024-08-03] MEDS: MIRABEGRON 25 MG ER TABLET PO (08:18)
[2024-08-03] MEDS: polyethylene glycoL 3350 17 GM POWD.PACK PO (08:18)
[2024-08-03] MEDS: ASPIRIN 81 MG CHEWABLE TABLET PO (08:18)
[2024-08-03 09:22] VITALS: BMI 37.0
[2024-08-03 11:32] LABS: Glucose Point of Care 136 mg/dl (65-105)
--- NOTE | 2024-08-03 12:46 | P.DS_ITS ---
DS: Admitting Diagnosis Discharge Date 08/03/24 Admitting Diagnosis Influenza A, Weakness, Neurologic gait dysfunction, Leukodystrophy, HTN, Chronic constipation DS: Discharge Diagnosis Discharge Diagnosis (1) Acute urinary tract infection: Code(s): N39.0 - Urinary tract infection, site not specified Status: Resolved Assessment and Plan: ##- suspected UTI with iv rocephin -->UC noted Proteus Mirabilis 08/02/24: * EMR noted that pt is NOT on Rocephin. He received only two doses on historical review and those were on 07/27 and 07/29. He has been without any abx coverage since the for positive growth of Proteus with pansensitivity with exception of Macrobid. * Augmentin 875 mg po BID has been ordered at this time to continue for ten days. * Pt not meeting sepsis criteria. 08/03/24: * Pt continues on Augmentin as noted. * Not meeting sepsis. (2) Generalized muscle weakness: Code(s): M62.81 - Muscle weakness (generalized) Status: Acute Assessment and Plan: -->PT/ OT -obtain notes from [facility] neurologist -history of form of muscular dystrophy -consult neurology here -order gabapentin for possible neuropathy in legs 08/02/24: * Continue Gabapentin * Continue fall precautions * Awaiting Neurology consult. * Awaiting PT/OT eval and placement. 08/03/24: * Continue Gabapentin. * Pt is weak at baseline and is going to a SNF. * His overall condition has changed and improved. He is stable to see Neurology as outpt, as he has a Neurologist already at [facility]. * Suspect his weakness was exacerbated by his UTI. (3) Neuropathy of lower extremity: Code(s): G57.90 - Unspecified mononeuropathy of unspecified lower limb Status: Acute Assessment and Plan: ##Chronic gait disorder - had mri l/s showing Moderate degenerative spondylosis at L5-S1. - Mild degenerative change in the remainder of the lumbar spine, as detailed above. - Minimal grade 1 retrolisthesis of L5 over S1. - PT/ OT - Awaiting neurology review - pt currently lives alone carer comes to help - PT/ OT ordered 08/02/24: * Awaiting Neurology evaluation and their recommendations. * Fall precautions 08/03/24: * Pt continues to have weakness, but it is improved and he is discharging to a SNF. * He may see Neurology as outpt. (4) IFG (impaired fasting glucose): Code(s): R73.01 - Impaired fasting glucose Status: Inactive Assessment and Plan: HgA1C - 6.4 08/02/24: * Continue current regimen. 08/03/24: * Home regimen with follow up with PCP. (5) CAD (coronary artery disease): Qualifiers: Coronary Disease-Associated Artery/Lesion type: habematolel artery [place] vs. transplanted heart: habematolel heart Associated angina: unspecified whether angina present Qualified Code(s): I25.10 - Atherosclerotic heart disease of habematolel coronary artery without angina pectoris Code(s): I25.10 - Atherosclerotic heart disease of habematolel coronary artery without angina pectoris Status: Inactive Assessment and Plan: continue home medication (6) Flu: Code(s): J11.1 - Influenza due to unidentified influenza virus with other respiratory manifestations Status: Acute Assessment and Plan: # flu supportive care # continue tamiflu total of 5 days 08/02/24: * Continue supportive care. * Monitor VS and labs * Not requiring any supplemental oxygen at this time. 08/03/24: * Stable Plan Discharge to SNF. Pt's overall weakness is still present, but he has had interval improvement. As his goal currently is to go to SNF and not home, he is stable for discharge at this time without seeing our Neurologist as he has his own Neurologist in [place] that he can follow up with. DS: Summary Hospital Course Reason for hospitalization: Influenza A, Generalized weakness, Neurologic gait dysfunction, Leukodystrophy, HTN, Chronic constipation Hospital Course: This pleasant, 59-year-old male with a past medical history of leukodystrophy with chronic debility, nonobstructive coronary disease, GERD, pre diabetes and vitamin B12 deficiency who presented to the ER on 07/27/24 from home via EMS due to generalized weakness, cough and dark urine. The patient had just been discharged from snf facility 2 days prior. After discharge from snf facility he was doing well with sitting himself up using a bar above the bed and was able to transfer himself to the wheelchair. However the previous 24 hours prior to ER presentation, he had increased weakness and cough he and was less conversational. His urine has also become darker. The patient at that time was not able to provide meaningful history due to chronic neurologic deficits and generalized weakness. He was aware but had difficulty with communication and mostly answers questions only in yes and no responses. In the ER influenza a PCR returned positive. He was started on Tamiflu and admitted for observation and evaluation by physical therapy and occupational therapy. CT head was unremarkable. His inpatient hospitalization was uneventful. There was concern that his overall Leukodystrophy could be causing his gait instability to worsen, and Neurology here was consulted, but they have been unavailable. Pt has been agreeable to discharge to SNF at this time as he requires more care, therefore his Neurology consult may be performed as an outpt. Throughout his inpatient stay he has had interval improvement with his level of communication, and now converses easily, answers all questions appropriately and has no new deficits. He is stable for discharge today to continue Augmentin for his UTI that culture grew out Proteus. Status at Discharge Cognitive/behavioral status at discharge: At baseline Functional status at discharge: bed bound Overall status at discharge: patient is not back to baseline Time Spent with Patient Time attestation: Total time spent providing and/or coordinating discharge services: Time spent: Greater than 30 minutes Specific discharge activities: Follow up, medications Exam Narrative: Weight 117.1 kg BMI 37 Const: General: cooperative, healthy appearing, comfortable, alert, awake, Physically active and overweight; No in distress Nutritional Appearance: overweight Orientation/consciousness: oriented to person, oriented to place and oriented to time Limitations: physical limitations Other: No acute distress, obese, appears stated age HENMT: Head: normal to inspection and normocephalic Other: Mucous membranes are tacky, no oral pharyngeal erythema, crowded posterior oropharynx Eyes: General: appearance normal, both eyes and all related structures Other: Pupils are equal and reactive, no scleral icterus, no conjunctival pallor Neck: Neck: normal visual inspection, full ROM and no lymphadenopathy Other: Large neck circumference, no thyromegaly, trachea min Chest: Chest palpation & inspection: normal inspection of the chest Resp: Effort & Inspection: normal respiratory effort and no respiratory distress Auscultation: clear to auscultation bilaterally, no rhonchi and no wheezes Other: Clear to auscultation bilaterally no tachypnea but shallow respiration Cardio: Rate: regular rate Rhythm: regular rhythm Heart sounds: S1 normal heart sound present and S2 normal heart sound present Peripheral pulses: Peripheral pulses 2+ throughout Other: Regular rate, regular rhythm, 2+ bilateral radial pedal pulses GI: Inspection: normal to inspection Auscultation: normal bowel sounds Other: Soft, distended, nontender, normal active bowel sounds, abdominal respirations : Other: Pure wick catheter in place with empty canister Skin: General skin exam: no rashes or lesions noted Other: No jaundice, no pallor, no rashes Neuro: General: oriented to person, oriented to place, oriented to time, moves all extremities and Unable to assess gait Cranial nerves: Yes CN's II-XII intact bilaterally Cognition (Neuro): normal cognition Speech: normal speech Gait exam (Neuro): Unable to assess gait Other: Patient is alert oriented to person, place and year. He follows commands, and he makes jokes in conversation today. Extrem: General: no pedal edema, no calf tenderness and other (limited use of extremities, use of seth lift) Other: Bilateral weakness 4/5 in legs Psych: Mental Status: mental status grossly normal Speech and movement: Normal speech and movement present Affect: normal affect Attitude: cooperative Thought process: Normal thought process present Other: Flat affect, cooperative DS: Data Data Completed and Pending Completed studies during hospitalization: ITS Impressions Chest X-Ray 07/26/24 20:15 IMPRESSION: 1. Small lung volumes with no evident acute cardiopulmonary disease. Head CT 07/28/24 14:24 IMPRESSION: 1. Stable extensive nonspecific cerebral white matter disease, which likely represents chronic small vessel ischemic disease. Labs on day of discharge: Labs from last 24 hours 08/03/24 08/03/24 08/03/24 12:04 11:13 07:36 WBC RBC Hgb Hct MCV MCH MCHC RDW Plt Count MPV Immature Gran % (Auto) Neut % (Auto) Lymph % (Auto) Meagher % (Auto) Eos % (Auto) Baso % (Auto) Lymph # (Auto) Meagher # (Auto) Eos # (Auto) Baso # (Auto) Abs Immat Gran (auto) Absolute Neuts (auto) Absolute Nucleated RBC Nucleated RBC % Sodium Potassium Chloride Carbon Dioxide Anion Gap BUN Creatinine Estim Creat Clear Calc Estimated GFR Glucose POC Capillary Glucose 136 H 120 H Calcium Magnesium Total Bilirubin AST ALT Alkaline Phosphatase Total Protein Albumin SARS-CoV-2 RNA (RT-PCR) Pending 08/03/24 08/02/24 08/02/24 06:34 21:34 16:52 WBC 8.6 RBC 5.00 Hgb 14.0 Hct 43.7 MCV 87.4 MCH 28.0 MCHC 32.0 RDW 13.4 Plt Count 313 D MPV 11.0 H Immature Gran % (Auto) 0.5 Neut % (Auto) 53.0 Lymph % (Auto) 35.3 Meagher % (Auto) 7.0 Eos % (Auto) 3.7 Baso % (Auto) 0.5 Lymph # (Auto) 3.04 Meagher # (Auto) 0.6 Eos # (Auto) 0.3 Baso # (Auto) 0.0 Abs Immat Gran (auto) 0.04 H Absolute Neuts (auto) 4.6 Absolute Nucleated RBC 0.000 Nucleated RBC % 0.0 Sodium 140 Potassium 4.1 Chloride 104 Carbon Dioxide 24 Anion Gap 12 BUN 14 Creatinine 0.88 Estim Creat Clear Calc 102 Estimated GFR > 60 Glucose 127 H POC Capillary Glucose 142 H 155 H Calcium 9.2 Magnesium 2.3 Total Bilirubin 0.9 AST 32 ALT 30 Alkaline Phosphatase 84 Total Protein 7.0 Albumin 4.1 SARS-CoV-2 RNA (RT-PCR) Discharge Plan Discharge Attending physician on discharge: Estelle Pereira Consulting providers: Yuri Camejo Discharging Clinician: Estelle Pereira Anticipated Discharge Date/Time: 08/03/24 12:59 Patient Disposition: SNF Activity: as tolerated Diet: as tolerated Discharge Instructions: Per Care Coordination: [facility] to resume - phone [phone] RN - Please Fax Discharge orders to [phone] Take all medications as ordered. Follow up with PCP and Neurologist STEPHEN. Please call for that appointment. Patient Language: Kyrgyz Stand Alone Forms: Shelter Discharge Follow-up/Referrals: Chencho Sosa MD [Primary Care Provider] - Call for Appointment Discharge Medications: New amoxicillin 875 mg tablet 875 mg PO Q12H Qty: 18 0RF Continued aspirin 81 mg tablet,chewable 1 tablet PO DAILY metoprolol succinate 25 mg tablet extended release 24 hr 25 mg PO DAILY rosuvastatin 40 mg tablet 40 mg PO DAILY isosorbide mononitrate 30 mg tablet extended release 24 hr 15 mg PO DAILY Qty: 45 0RF ubiquinone 90 mg tablet,disintegrating 100 mg PO DAILY mirabegron [Myrbetriq] 25 mg tablet extended release 24 hr 25 mg PO DAILY oxybutynin chloride 15 mg tablet extended release 24hr 10 mg PO DAILY biotin tablet 10 mg PO DAILY omeprazole 20 mg capsule,delayed release(DR/EC) 20 mg PO DAILY Rx Instructions: TAKE 1 CAPSULE BY MOUTH DAILY cyanocobalamin (vitamin B-12) 1,000 mcg/mL solution 1,000 mcg subcut MONTHLY Qty: 10 1RF furosemide [Lasix] 20 mg tablet 20 mg PO QAM Qty: 30 5RF Date of admission: 07/27/24 08:08 Primary Care Provider: Chencho Sosa Admitting Provider: Linda Estes Attending physician on admission: Estelle Pereira Condition: Stable Quality VTE Prophylaxis VTE prophylaxis: pharmacologic ordered Hospitalist MIPS Heart Failure (Exclusion) Patient has history of Heart Transplant or Left Ventricular Assistive Device?: No IF YES, STOP HERE Heart Failure (Qualifier) Patient has current or prior documentation of LVEF less than or equal to 40%, or mod/servere depressed LVSF?: No IF NO, STOP HERE
[2024-08-03 12:51] LABS: SARS-CoV-2 RNA PCR Negative (Negative)
[2024-08-03 14:00] VITALS: BP 126/72; PULSE 57; RESP 18; TEMP 35.7; O2SAT 96
--- NOTE | 2024-08-03 16:16 | PCPTNOTE ---
On 08/03/24, the student, MEAGAN Brown, provided care and completed [facility] documentation on this patient. I have reviewed the student's documentation and agree with the findings.
[2024-08-03 16:22] LABS: Glucose Point of Care 143 mg/dl (65-105)
[2024-08-03 21:14] LABS: Glucose Point of Care 116 mg/dl (65-105)
== END 2024-08-03 22:05 | DRG 194 ==
LOC: ANHED 22:09 → ANH3MEDSUR 23:05
PROVIDERS: Family Medicine; Nurse Practitioner Family; Admitting Provider Internal Medicine; Emergency Provider Physician Assistant; PCP Family Medicine; Visit Provider Nurse Practitioner Adult Health
DX: J10.1 Influenza due to other identified influenza virus with other respiratory manifestations (principal); N39.0 Urinary tract infection, site not specified; B96.4 Proteus (mirabilis) (morganii) as the cause of diseases classified elsewhere; G71.00 Muscular dystrophy, unspecified; R73.03 Prediabetes; N32.81 Overactive bladder; G31.80 Leukodystrophy, unspecified; G57.90 Unspecified mononeuropathy of unspecified lower limb; K21.9 Gastro-esophageal reflux disease without esophagitis; I25.10 Atherosclerotic heart disease of native coronary artery without angina pectoris; E78.00 Pure hypercholesterolemia, unspecified; E53.8 Deficiency of other specified B group vitamins; K59.09 Other constipation; I10 Essential (primary) hypertension; R26.9 Unspecified abnormalities of gait and mobility; E66.9 Obesity, unspecified; Z68.37 Body mass index [BMI] 37.0-37.9, adult
CPT/HCPCS: 36415; 70450; 71045; 80048; 80053; 81001; 82948; 83036; 83605; 83690; 83735; 85025; 85027; 85610; 85730; 86140; 87040; 87635; 87637; 93005; 96360; 96361; 97110; 97161; 97165; 97530; 99285; A9270; G0378; J0696; J1650; J7030

== ENCOUNTER 2025-01-24 23:16 | Inpatient (IN) | payer MEDICARE, MEDICAID, SELFPAY ==
--- NOTE | ~2025-01-24 | XR_ITS ---
XR abdomen/kub 1V 02/01/2025 14:30 INDICATION: Right internal ureteral stent. Constipation. TECHNIQUE: KUB COMPARISON: 01/27/2025 FINDINGS: Bowel gas pattern is normal. Right internal ureteral stent in expected position. There is no evidence of free air, mass, organomegaly, ascites or obstruction. No abnormal calculi are seen. The bones appear intact. IMPRESSION: 1: No acute abdominal abnormality identified. Reviewed, dictated and finalized at location O.
--- NOTE | ~2025-01-24 | XR_ITS ---
EXAM/PROCEDURE: XR abdomen/kub 1V - 01/27/2025 9:33 CDT HISTORY: 59 years old Male with Post-op stent , stone eval COMPARISON: None available. TECHNIQUE: AP view(s) of the abdomen. FINDINGS: The bowel gas pattern is normal. There is no evidence for obstruction. No free intraperitoneal air is identified on this supine radiograph. Right double-J ureteral stent seen. The visualized soft tissue shadows are unremarkable. No gross bony abnormalities are seen. Visualized portions of lung bases are clear. IMPRESSION: Right double-J ureteral stent in place. Reviewed, dictated and finalized at location A.
--- NOTE | ~2025-01-24 | XR_ITS ---
Exam: X-ray chest one view portable CLINICAL HISTORY: Sepsis. Comparisons: 07/26/2024 and 04/14/2024 TECHNIQUE: 2 portable AP supine images of the chest were obtained. FINDINGS: Blunting of the left costophrenic angle likely due to a small left-sided pleural effusion. Interstitial and airspace opacities scattered throughout both lungs. No pneumothorax. No free air under the diaphragm. Lung volumes are low. IMPRESSION: 1.Interstitial and airspace opacities scattered throughout both lungs. Differential includes but is n ot limited to edema or pneumonia. Follow-up is recommended. 2. Blunting of the left costophrenic angle likely due to a small left-sided pleural effusion. Recomme nd follow-up to resolution. Reviewed, dictated and finalized at location A. IMPRESSION: 1.Interstitial and airspace opacities scattered throughout both lungs. Differen tial includes but is not limited to edema or pneumonia. Follow-up is recommende d. 2. Blunting of the left costophrenic angle likely due to a small left-sided ple ural effusion. Recommend follow-up to resolution.
--- NOTE | ~2025-01-24 | XR_ITS ---
INTRAOPERATIVE FLUOROSCOPY: CLINICAL HISTORY: 59 years old Male; RIGHT SIDE SPECIAL, STONE PROCEDURE COMMENTS: Limited intraoperative fluoroscopy of the retroperitoneum was performed. CUMULATIVE DOSE: 7.1 mGy FLUOROSCOPY TIME: 12 seconds FINDINGS/IMPRESSION: Please refer to operative note for further details. Reviewed, dictated and finalized at location A.
--- NOTE | ~2025-01-24 | XR_ITS ---
EXAM/PROCEDURE: XR chest port-a-cath/central - 01/25/2025 3:22 CDT HISTORY: 59 years old Male with CENTRAL LINE PLACEMENT TECHNIQUE: Two view(s) of the chest. COMPARISON: None available. FINDINGS: LUNGS/ PLEURA: Inspiratory volumes are small, which accounts for some vascular crowding. Bilateral in terstitial edema and right upper lobe consolidation. No pneumothorax or pleural effusion. HEART/ MEDIASTINUM: Heart appears normal in size. BONES: No acute osseous abnormality. OTHER: Visualized upper abdomen is unremarkable. Tip of the left subclavian venous catheter is in the proximal SVC. IMPRESSION: Tip of the left subclavian venous catheter is in proximal SVC Reviewed, dictated and finalized at location A.
--- NOTE | ~2025-01-24 | CT_ITS ---
CT head without contrast Indication: Sepsis, altered mental status COMPARISON: 07/28/2024 Technique: Serial scans were obtained through the brain without the administration of contrast. Dose reduction technique was used on this scan by utilizing automated exposure control and iterative recon struction technique. The dose-length product (DLP) was 983.67 mGy-cm. Findings: There is no evidence of intracranial hemorrhage, mass lesion, or acute infarct. The ventri cles and subarachnoid spaces are dilated, consistent with moderate to advanced atrophy. Low attenuat ion regions are seen within the periventricular white matter bilaterally, likely representing changes from chronic microvascular ischemic disease. There is no evidence of edema, mass effect or midline shift. The visualized paranasal sinuses and mastoid air cells are clear. Impression: No intracranial hemorrhage, mass, or acute infarct. Atrophy and chronic white matter changes, as above. Reviewed, dictated and finalized at [facility]. Impression: No intracranial hemorrhage, mass, or acute infarct. Atrophy and chronic white matter changes, as above.
--- NOTE | ~2025-01-24 | US_ITS ---
US renal BI 01/26/2025 20:47 Procedure: Realtime transabdominal ultrasound of the kidneys and bladder. Indication: Acute renal insufficiency Comparison: No prior studies for comparison. Findings: Renal echotexture is normal bilaterally without hydronephrosis, contour deforming mass or renal calculus. The right kidney measures 13 cm and left kidney measures 11.8 cm. There is Peralta catheter in the bladder which is decompressed. Impression: 1: Unremarkable renal ultrasound. No stones, masses or hydronephrosis. Reviewed, dictated and finalized at location A. Impression: 1: Unremarkable renal ultrasound. No stones, masses or hydronephrosis.
--- NOTE | ~2025-01-24 | XR_ITS ---
Portable chest x-ray Comparison: 01/25/2025 Clinical History: Acute renal failure Findings: Left subclavian line in place. Lungs are clear, without focal consolidation or pleural effusion. Cardiomediastinal silhouette is stable. Bones and soft tissues are unremarkable. Impression: Clear lungs. Left subclavian line in place. Reviewed, dictated and finalized at location . Impression: Clear lungs. Left subclavian line in place.
--- NOTE | ~2025-01-24 | CT_ITS ---
Clinical Indication: Sepsis CT Scan of the Chest, Abdomen, and Pelvis without Contrast: Technique: Contiguous sections were acquired throughout the chest, abdomen, and pelvis without IV con trast administration. Dose reduction technique was used on this scan by utilizing automated exposure control and iterative reconstruction technique. The dose-length product (DLP) was 1751.72 mGy-cm. Comparison: 03/12/2024 Findings: There is no evidence of any significant mediastinal, hilar or axillary lymphadenopathy. The mediastin al soft tissues appear normal. There is no evidence of pleural or pericardial effusion. The lungs are clear. No pulmonary nodules or infiltrates are noted. The liver, spleen, pancreas, adrenal glands are within normal limits. Small gallstones are present. S mall nonobstructing left renal stones are present. No left ureteral stone or left hydronephrosis. The re is a 14 mm stone in the very proximal right ureter with mild right hydronephrosis. Additional smal l nonobstructing right renal stones are present. No evidence of aortic aneurysm. No lymphadenopathy. No bowel obstruction or bowel wall thickening. There is no evidence to suggest acute appendicitis. Sm all fat-containing umbilical hernia present. Urinary bladder is unremarkable. No pelvic mass seen. No ascites. Impression: 14 mm proximal right ureteral stone with mild right hydronephrosis. Additional small bilateral nonobstructing renal stones. Cholelithiasis. Small fat-containing umbilical hernia. Reviewed, dictated and finalized at [facility]. Impression: 14 mm proximal right ureteral stone with mild right hydronephrosis. Additional small bilateral nonobstructing renal stones. Cholelithiasis. Small fat-containing umbilical hernia.
[2025-01-24 23:20] VITALS: BP 88/70; PULSE 135; RESP 45; TEMP 39.6; O2SAT 94
--- NOTE | 2025-01-24 23:30 | ECG_ITS ---
Test Date: 2025-01-24 23:38:30 Measurements Intervals Lucas Rate: 127 P: 31 [place]: 120 QRS: -27 QRSD: 101 T: 75 QT: 304 QTc: 443 Interpretive Statements SINUS TACHYCARDIA DELAYED PRECORDIAL R/S TRANSITION ST-T WAVE ABNORMALITY IN HIGH LATERAL LEADS- CONSIDER ISCHEMIA BASELINE WANDER- V1, V4-V5 ABNORMAL ECG Compared to ECG 07/26/2024 19:21:42 HEART RATE HAS INCREASED POSSIBLE ISCHEMIA NOW PRESENT Electronically Signed On 01-25-2025 07:04:59 CDT by Franko Carey D.O.
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
[2025-01-24] MEDS: SODIUM CHLORIDE 0.9% IV 1,000 ML 999 ML IV CONT ×3 (23:48→23:50)
[2025-01-24] MEDS: ACETAMINOPHEN 650 MG SUPPOSITORY RECTAL (23:48)
[2025-01-24] MEDS: SODIUM CHLORIDE 0.9% IV 300 ML 999 ML IV CONT (23:55)
[2025-01-25] VITALS (37 sets, daily range): BP systolic 89–151; BP diastolic 61–98; PULSE 88–130; RESP 22–34; TEMP 36.8–38.8; O2SAT 92–100; BMI 36.1
[2025-01-25 00:15] LABS: Hematocrit 45.1 % (42.0-52.0); Hemoglobin 14.5 g/dL (14.0-18.0); INR 1.3; Immature Granulocyte Percent A 0.6 % (0-0.5); Immature Platelet Fraction Pct 5.7 % (0.9-11.2); Lymphocytes Absolute Auto 0.34 K/mm3 (0.9-3.2); Mean Corpuscular HGB Conc 32.2 g/dl (32-36); Mean Corpuscular Hemoglobin 27.9 pg (26-34); Mean Corpuscular Volume 86.7 fl (80-100); Nucleated Red Blood Cells Absolute Auto 0.000 K/mm3 (0.0-0.012); Nucleated Red Blood Cells Perc 0.0 % (0.0-0.2); Platelet Count Result 145 k/mm3 (150-375); Prothrombin Time 16.3 Seconds (11.1-14.7); Red Blood Count 5.20 M/mm3 (4.6-6.20); White Blood Count 8.9 K/mm3 (4.5-10.0)
[2025-01-25 00:16] LABS: Alanine Aminotransferase 26 U/L (6-50); Albumin Level 3.7 g/dL (3.5-5.1); Alkaline Phosphatase 248 U/L (38-126); Anion Gap 14 mmol/L (4-12); Aspartate Amino Transferase 42 U/L (17-59); Bilirubin,Total 4.0 mg/dL (0.2-1.3); Blood Urea Nitrogen 30 mg/dL (9-20); Calcium 8.4 mg/dL (8.4-10.2); Carbon Dioxide 15 mmol/L (22-30); Chloride 107 mmol/L (98-107); Estimated CRCL calculation 32 ml/min; Estimated Glomerular Filt Rate 24; Glucose 143 mg/dL (65-110); Partial Thromboplastin Time 32.7 Seconds (22.3-36.8); Potassium 3.6 mmol/L (3.4-5.0); Sodium 136 mmol/L (137-145); Total Protein 7.1 g/dL (6.3-8.2)
--- OUTSIDE RECORDS SUMMARY | 2025-01-25 00:17 | XMS_ITS | Clinical Summary ---
Author Organization [facility] Address [address] [place] [address] Care Team Providers Care Senior Manufacturing Test Engineer Name Role Phone Chencho Sosa MD Primary Care Provider Jett Clement MD Unavailable [phone] Allergies Active Allergy Reactions Criticality Noted Date [...] disorder with radiculopathy of lumbar region 06/08/2020 Encounters Date Type Department Care Team Description 01/08/2025 Telephone [facility] Pediatric Genetics [address] [place] [address] [place] [address] Mame Wing CGC Updated Results 12/18/2024 Orders Only [facility] Pediatric Genetics [address] [place] [address] [place] [address] Lemuel Maher MD from Last 3 Months Immunizations Immunization Administration Dates Next Due Influenza, [...] Comments Blood Pressure 128/82 07/16/2023 9:57 AM MANAGER GRANT Pulse 64 07/16/2023 9:57 AM MANAGER GRANT Temperature 36.2 C (97.1 F) 03/27/2022 1:35 PM CDT Respiratory Rate 20 02/13/2022 9:13 AM CDT Oxygen Saturation 95% 02/13/2022 9:1 3 AM CDT Inhaled Oxygen Concentration - - Weight 131.5 kg (290 lb) 07/16/2023 9:5 7 AM MANAGER GRANT pt gave weight Height 177.8 cm (5' 10) 07/16/2023 9:5 7 AM MANAGER GRANT Body Mass Index 41.61 07/16/2023 9:57 AM MANAGER GRANT Plan of Treatment Health Maintenance Due Date Last Done Comments Colon Cancer Screening-Colonoscopy 1965 Depression Screening 1965 Hepatitis C Screening 1965 Prostate Cancer Screening-PSA 1965 Hepatitis B Screening 1983 Regular Well Visit/Exam 18-64 1983 Covid-19 Vaccine ( season) 2024 05/13/2021, 10/15/2020 Influenza Vaccine (#1) 2025 , 04/10/2021, 04/10/2019, Additional history exists DTaP/Tdap/Td Vaccine (4 - Td or Tdap) 07/05/2031 07/05/2021, 01/03/2019, 01/16/2013 Zoster Vaccine Completed 01/03/2022, 10/18/2021 Pneumococcal vaccine <65 Aged Out No longer eligible based on patient's age to complete this topic Insurance [facility] MEDICARE ADVANTAGE [facility]AGE Care Teams Senior Manufacturing Test Engineer Relationship Specialty Start Date End Date Chencho Sosa MD [address] [facility] [address] [place] [address] PCP - General Family Medicine 03/31/20 Jett Clement MD [address] [facility] [address] [place] [address] Referring Physician Neurology 11/07/21
--- OUTSIDE RECORDS SUMMARY | 2025-01-25 00:17 | XMS_ITS | Encounter Summary ---
Author Organization [facility] Address [facility] [place] [address] Care Team Providers Care Pharmacist Aide Name Role Phone Chencho Sosa MD Primary Care Provider [phone] Wendy Trevino MD Unavailable [phone] Encounter Details Date Type Department Care Team (Late Contact Info) Description 03/05/2019 Abstract [facility] at [address] [address] Den Fisher MA Social History Tobacco Use [...] Sexual Orientation Straight 06/02/2021 8: 10 AM CHAIR SPRINGER Occupation Industry Job Start Date Job End Date Not on file Not on file Not on file Not on file documented as of this encounter Plan of Treatment Upcoming Encounters Date Type Department Care Team (Late st Contact Info) Description 03/11/2025 10:40 AM CDT Office Visit [facility] Neurology Speciality Clinic - [address] [place] [address] Jett Clement MD 3 [facility] [place] [address] 11/10/2025 2:00 PM CDT Office Visit [facility] THREE [facility], [address] [place] [address] Wendy Trevino MD Three [facility]. [address] [place] [address] documented as of this encounter Procedures Procedure [...] this encounter Results * LIPID PANEL (05/23/2021) CHOLESTEROL 150 HDL 54 TRIGLYCERIDES 87 NON HDL CHOLESTEROL 96 LDL (CALCULATED) 79 05/23/2021 us Doc [facility] LABORATORY Final Result * CBC (OUTSIDE LAB) (04/26/2021) Pathologist [facility] WBC 8.4 HGB 14.7 HCT 45.7 PLT 287 04/26/2021 us Doc [facility] Abstract LAB-OUTSIDE/ABSTRACTED Final Result * LIPID PANEL (04/26/2021) [facility] CHOLESTEROL 158 HDL 39 TRIGLYCERIDES 105 DIRECT LDL 98 04/26/2021 us Doc [facility] LABORATORY Final Result * COMPREHENSIVE METABOLIC PANEL (04/26/2021) Pathologist [facility] SODIUM S/P/B 135 137 - 145 [...] Final * THYROID STIM HORMONE, TSH (10/12/2020) Pathologist [facility] TSH 1.020 10/12/2020 us Doc [facility] LABORATORY Final Result * FOLIC ACID SERUM (10/12/2020) Pathologist [facility] FOLATE 10.0 10/12/2020 us Doc [facility] LABOR[facility] Final Result * VITAMIN B-12 (10/12/2020) Pathologist [facility] VITAMIN B12 S/P/B 348 10/12/2020 us Doc [facility] LABORATORY Final Result * COMPREHENSIVE METABOLIC PANEL (10/12/2020) Pathologist [facility] SODIUM S/P/B 142 POTASSIUM S/P/B 4.0 CO2 [...] Result * PROSTATE SPECIFIC ANTIGEN,TOTAL (04/21/2020) Pathologist [facility] PSA 1.1 04/21/2020 us Doc [facility] LABORATORY Final Result * CBC (OUTSIDE LAB) (04/21/2020) Pathologist [facility] WBC 7.6 HGB 15.4 HCT 45.9 PLT 294 04/21/2020 us Doc [facility] Abstract LAB-OUTSIDE/ABSTRACTED Final Result * THYROID STIM HORMONE, TSH (04/21/2020) Pathologist [facility] TSH 1.36 04/21/2020 us Doc [facility] Abstract [...] on filedocumented in this encounter Care Teams Pharmacist Aide Relationship Specialty Start Date End Date Chencho Sosa MD [address] [place] [address] PCP - General FAMILY PRACTICE 03/11/18 Wendy Trevino MD Three [facility]. [facility] [address] [place] [address] [place] Inspector Rag Sorting INTERVENTIONAL CARDIOLOGY 04/02/18 documented as of this encounter
--- OUTSIDE RECORDS SUMMARY | 2025-01-25 00:17 | XMS_ITS | Clinical Summary ---
Author Organization [facility] Address [address] [place] [address] Care Team Providers Care Sales And Catering Coordinator Name Role Phone Chencho Sosa MD Primary Care Provider [phone] Wendy Trevino MD Unavailable [phone] Allergies Active Allergy Reactions Criticality Noted Date [...] ONCE DAILY 100 tablet 2 4 Active pregabalin (LYRICA) 50 MG capsule Take 1 capsule (50 mg total) by mouth 2 (two) times daily. 5 Active baclofen (LIORESAL) 5 MG tablet Take 1 tablet (5 mg total) by mouth daily. 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 Spasticity 08/01/2023 Unsteady gait when walking 08/01/2023 Essential hypertension 07/29/2023 White matter abnormality on MRI of brain 022 Urolithiasis 10/25/2021 Syncope, unspecified syncope type 10/19/2021 Paroxysmal SVT (supraventricular tachycardia) ([facility] /[facility]) 10/19/2021 Snoring 11/22/2020 Daytime somnolence 11/22/2020 Pure hypercholesterolemia 11/26/2019 Right leg numbness 06/10/2019 Lumbar transverse process fracture ([facility]/ [facility]) 01/05/2019 Coronary artery disease invo lving inaja coronary artery of inaja heart without angina pectoris 03/13/2018 Chest pain 03/11/2018 Resolved Problems Problem Noted Date Diagnosed Date Resolved Date Impaired mobility and activi ties of daily living 01/05/2019 11/28/2020 Encounters Date Type Department Care Team Description 11/04/2024 2:00 PM CDT Office Visit [facility] THREE [facility], [address] [place] [address] Autumn Lima PA-C Coronary Artery Disease; Follow Up (Annual.) 11/04/2024 Travel from Last 3 Months Immunizations Immunization Administration Dates Next Due Afluria 36 MONTHS+ [...] Sexual Orientation Straight 06/02/2021 8: 10 AM GUIDE VISITOR Occupation Industry Job Start Date Job End Date Not on file Not on file Not on file Not on file Last Filed Vital Signs Vital Sign Reading Time Taken Comments Blood Pressure 116/64 11/04/2024 2:01 PM CDT Pulse 58 11/04/2024 1:52 PM CDT Temperature 37.1 C (98.8 F) 02/03/2024 2:22 PM CDT Respiratory Rate 17 05/28/2023 2:47 PM GUIDE VISITOR Oxygen Saturation 97% 02/03/2024 2:22 PM CDT Inhaled Oxygen Concentration - - Weight 136.1 kg (300 lb) 11/04/2024 1:52 PM CDT Height 177.8 cm (5' 10) 11/04/2024 1:52 PM CDT Body Mass Index 43.05 11/04/2024 1:52 PM CDT Plan of Treatment Upcoming Encounters Date Type Department Care Team (Late st Contact Info) Description 03/11/2025 10:40 AM CDT Office Visit [facility] Neurology Speciality Clinic - [address] [place] [phone] Jett Clement MD 3 [place], [place] [id number] 11/10/2025 2:00 PM CDT Office Visit [facility] THREE [facility], [facility] [address] [place], [place] [id number] Wendy Trevino MD Three [facility]. [facility] [address] [place], [place] [address] Health Maintenance Due Date Last Done Comments Colorectal Cancer Screening Colonoscopy (10 Years) 1965 Annual Physical 01/29/1968 Pneumococcal Vaccine: 50+ Years (1 of 2 - PCV) 01/29/1984 ASCVD LDL 12/08/2023 12/07/2022, 05/10, 04/26/2021, Additional history exists COVID-19 Vaccine ( season) 2024 05/13/2021, 10/15/2020 PHQ-2 (Physician [place]) 06/10/2024 02/03/2024 DTaP, Tdap and Td Vaccines (8 - Td or Tdap) 07/05/2031 07/05/2021, 01/03/2019, 01/03/2019, Additional history exists Hepatitis C Completed 10/17/2021, 01/03/2019 Zoster Vaccines Completed 01/03/2022, 12/09, 10/18/2021, Additional [...] perform ADLs independently General No Tori Garcia, MODELERmicrosoft application developer Devices Implanted Type Area Parts Processor Device Identifier Shelf Expiration Date Model / Serial / Lot Stent Ureteral Whiting Sci Contour 6fr X 26cm - [id number] Implanted:Qty : 1 on 11/02/2021 by Ed Gr MD at [facility] Stent Left: Ureter [employer] [id number] 07/17/2024 [id number] 30 / / [id number] Explanted Type Area Parts Processor Device Identifier Shelf Expiration Date Model / Serial / Lot Stent Ureteral Whiting Sci Contour 6fr X 26cm - [id number] Implanted:Qty: 1 on 10/25/2021 by Ed Gr MD at [facility] Explanted:Qty: 1 on 11/02/2021 at [facility] Stent Left: Ureter [employer] 06/23/2024 [id number] 0 / / [id number] Procedures Procedure Name Priority Date/Time Associated Diagnosis Comments LIPID PANEL Routine 12/07/2022 10:17 AM CDT Hyperlipidemia, mixed HEPATITIS C ANTIBODY Routine 10/17/2021 9:49 AM CDT from Last 3 Months or Most Recently Relevant to Health Maintenance Results * LIPID PANEL (12/07/2022 10:17 AM CDT) CHOLESTEROL 128 <200 MG/DL 12/07/2022 11:[address] [facility] TRIGLYCERIDES 111 <150 MG/DL 12/07/2022 11:[address] [facility] HDL 49 >40.0 MG/DL 12/07/2022 11:[address] [facility] LDL (CALCULATED) 57 <100 MG/DL 12/08/19 11:[address] [facility] NON HDL CHOLESTEROL 79 <130 MG/DL 12/07 11:[address] [facility] CHOL/HDL RATIO 2.6 0.0 - 4.5 12/07/2022 11:[address] [facility] VLDL CALCULATION 22 5 - 55 MG/DL 12/07/2022 11:[address] [facility] LIPID INTERPRETATION 12/07/2022 11:[address] [facility] Comment: NIH CONCENSUS REPORT RECOMMENDATIONS: ADULT CHILD LOW RISK: CHOLESTEROL <200 <170 TRIGLYCERIDE <150 --- HDL >=60 --- LDL <100 <110 BORDERLINE: CHOLESTEROL 200-239 170-199 TRIGLYCERIDE 150-199 --- HDL 40-59 --- LDL 100-159 110-129 HIGH RISK: CHOLESTEROL >=240 >=200 TRIGLYCERIDE >=200 --- HDL <40 --- LDL >=160 >=130 12/07/2022 10:1 7 AM CDT us Autumn Lima PA-C LABORATORY Final Resul t [facility] [address] [place] [address], * HEPATITIS C ANTIBODY (10/17/2021 9:49 AM CDT) HEPATITIS C AB NON-REACTI VE NON-REACTI VE 10/18/2021 9:[address] [facility] 10/17/2021 9:49 AM CDT us Jett Clement MD LABORATORY Final Res ult [facility] [address] [place] [address], from Last 3 Months or Most Recently Relevant to Health Maintenance Insurance MEDICARE Advance Directives Documents on File Type Date Recorded Patient Restaurant Floor Manager Expl anation Advance Directives and Living Will 03/13/2018 10:17 AM 03/12/2018 POA FOR HEALTHCARE * Full Code (Latest Code Status on File) Date Activated Date Inactivated Comments 10/25/2021 1:06 AM 10/30/2021 5:27 PM * Full Code Date Activated Date Inactivated Comments 06/25/2018 11:51 PM 06/26/2018 4:10 PM * Full Code Date Activated Date Inactivated Comments 03/13/2018 1:45 PM 03/14/2018 3:08 PM Care Teams Sales And Catering Coordinator Relationship Specialty Start Date End Date Chencho Sosa MD [address] [place] [address] PCP - General FAMILY PRACTICE 03/11/18 Wendy Trevino MD [facility] [address] [place] [address] [place] Re Recording Mixer INTERVENTIONAL CARDIOLOGY 04/02/18
--- OUTSIDE RECORDS SUMMARY | 2025-01-25 00:17 | XMS_ITS | Encounter Summary ---
Author Organization [facility] Address [facility] [place] [address] Care Team Providers Care Spot Welder Line Name Role Phone Chencho Sosa MD Primary Care Provider [phone] Wendy Trevino MD Unavailable [phone] Encounter Details Date Type Department Care Team (Latest Contact Info) Description 02/25/2024 Tamaract Message Enc [facility] Multispecialty Care - [facility] [address] [facility], [address] [place] [phone] Jett Clement MD 3 [place] [address] Tashi Esposito - [facility] Social [...] Sexual Orientation Straight 06/02/2021 8: 10 AM WARP TESTER Occupation Industry Job Start Date Job End [...] 10:55 AM CDT Subject: Tashi Esposito - [facility] Dr. Garcia, This is Jayme Walden's sister. We have been trying to obtain scrips for PT and OT forKen to attend the [facility]. Apparently, the PT script went through but they have been unable to receive the OT script. The fax number is [phone], Attention: Patricia. Please advise wh en thishas been sent. I know the folks at the [facility] have also been trying to have the script sent as well. If it has been done, just let me know. Thank you in advance for your assistance. documented in this encounter Plan of Treatment Upcoming Encounters Date Type Department Care Team (Late st Contact Info) Description 03/11/2025 10:40 AM CDT Office Visit [facility] Neurology Speciality Clinic - [place] [address] [address] [place] [address] Jett Clement MD [address] [facility] [place] [address] 11/10/2025 2:00 PM CDT Office Visit [facility] [address] [place] [address] Wendy [facility] MD [facility] [address] [place] [address] documented as of this encounter Goals Goal Patient Goal Type Associated Problems Recent Progress Patient-Stated? Author Health - patient able to perform ADLs independently General No Tori Garcia, MINING DETAIL DRAFTSPERSON documented as of this encounter Visit Diagnoses Not on filedocumented in this encounter Additional Health Concerns Assessment Noted Time PHQ-9 Depression Total Score: 0 08/30/19 22 2:43 PM CDT documented as of this encounter Care Teams Spot Welder Line Relationship Specialty Start Date End Date Chencho Sosa MD [address] [place] [address] PCP - General FAMILY PRACTICE 03/11/18 Wendy Trevino MD [facility] [address] [place] [address] [place] Legal Specialist INTERVENTIONAL CARDIOLOGY 04/02/18 documented as of this encounter
--- OUTSIDE RECORDS SUMMARY | 2025-01-25 00:17 | XMS_ITS | Encounter Summary ---
Author Organization [facility] Address [facility] [place] [address] Care Team Providers Care Custom Motorcycle Painter Name Role Phone Chencho Sosa MD Primary Care Provider [phone] Wendy Trevino MD Unavailable [phone] Encounter Details Date Type Department Care Team (Latest Contact Info) Description 06/06/2023 [place] Tourst Message Enc [facility] Medical Group Multispecialty Care - [facility] [address] [facility], [address] [place] [address] Jett Clement MD 3 [place] [address] Jayme Esposito - Referral to [facility] Social History Tobacco Use Types Packs/Day Years [...] Sexual Orientation Straight 06/02/2021 8: 10 AM DRY TALC RACKER Occupation Industry Job Start Date Job End [...] - 06/06/2023 1:58 PM CST Please advise TALC RACKER documented in this encounter Plan of Treatment Upcoming Encounters Date Type Department Care Team (Late st Contact Info) Description 03/11/2025 10:40 AM CDT Office Visit [facility] Neurology Speciality Clinic - [place] [address] [facility] [address] [place] [phone] Jett Clement MD [address] [place] [address] 11/10/2025 2:00 PM CDT [facility], [address] [place], [place] [address] Wendy Trevino MD Three [facility]. [address] [place], [place] [address] documented as of this encounter Goals Goal Patient Goal Type Associated Problems Recent Progress Patient-Stated? Author Health - patient able to perform ADLs independently General No Tori Garcia, BRACER documented as of this encounter Visit Diagnoses Not on filedocumented in this encounter Additional Health Concerns Assessment Noted Time PHQ-9 Depression Total Score: 0 08/30/19 22 2:43 PM CDT documented as of this encounter Care Teams Custom Motorcycle Painter Relationship Specialty Start Date End Date Chencho Sosa MD [address] [place] [address] PCP - General FAMILY PRACTICE 03/11/18 Wendy Trevino MD Three [facility]. [address] [place], [place] [address] [place] Press Breaker INTERVENTIONAL CARDIOLOGY 04/02/18 documented as of this encounter
--- OUTSIDE RECORDS SUMMARY | 2025-01-25 00:17 | XMS_ITS | Clinical Summary ---
Author Organization [facility] Address [address] [place] [address] Care Team Providers Care Helper Driver Name Role Phone Chencho Sosa MD Primary Care Provider [phone] Source Comments [facility],non-owned Affiliates and Associated Physician Practices is amultiple site organization consisting of ambulatory clinics and hospital sitesin [place], [place], [place] and [place]. This disclosure is being madepursuant to the Care Everywhere program and may not contain all information available regarding this patient. Last updated 18.[facility] Allergies No known active allergies Medications * Be aware that medications may not be up to date on this document. Alwaysverify current medications with the patient. atorvastatin (LIPITOR) 20 MG tablet Take 20 [...] 4 Grams (4000 mg) / 24 hours. 9 Active Active Problems Problem Noted Date Diagnosed [...] at Not on file Legal Sex Male 4:38 PM CDT Gender Identity Not on file [...] 108 kg (238 lb) 05/25/2019 8:52 AM LARGE ANIMAL VETERINARIAN Height 177.8 cm (5' 10) 05/25/2019 8:52 AM LARGE ANIMAL VETERINARIAN Body Mass Index 34.15 05/25/2019 8:52 AM LARGE ANIMAL VETERINARIAN Plan of Treatment Health Maintenance Due Date [...] (1 of 2) 2015 SCREENING FOR DIABETES 03/04/2022 9, 01/05/2019, 01/04/2019, Additional history exists COVID-19 VACCINE (1 - 2023- season) 2024 DEPRESSION SCREENING 06/10/2024 INFLUENZA VACCINE (#1) 2025 9, 04/04/2018, 05/22/2015, Additional history exists HEPATITIS C SCREENING Completed 01/03/2019 HIV SCREENING Completed 01/03/2019 HIB VACCINE Aged Out No longer eligi ble based on patient's age to complete this topic HPV VACCINE Aged Out No longer eligi ble based on patient's age to complete this topic MENINGOCOCCAL (Group B) VACCINE SHARED DECISION-MAKING Aged Out No longer eligible based on patient's age to complete this topic MENINGOCOCCAL GROUPS A/C/Y/W VACCINE Aged Out No longer eligible based on patient's age to complete this topic Goals Goal Patient Goal Type Associated Problems Recent Progress Patient-Stated? Author Mobility General Sri Green, RN Note: Expected end date: 03/09/2019 The [...] 7 - 26 mg/dL 01/05/2019 3:43 AM CDT [facility] Creatinine 0.9 0.6 - 1.2 mg/dL 01/05/2019 3:43 AM CDT [facility] Sodium 139 136 - 145 mmol/L 01/05/2019 3:43 AM CDT [facility] Potassium 3.8 3.5 - 4.5 mmol/L 01/05/2019 3:43 AM CDT [facility] Chloride 106 98 - 107 mmol/L 01/05/2019 3:43 AM CDT [facility] CO2 24 22 - 29 mmol/L 01/05/2019 3:43 AM [facility] Glucose 118(H) 70 - 115 mg/dL 01/05/2019 3:43 AM [facility] Calcium 8.1(L) 8.4 - 10.2 mg/dL 01/05/2019 3:43 AM [facility] Anion Gap 13 8 - 18 01/05/2019 3:43 AM [facility] BUN/Creatinine Ratio 16 7 - 23 01/05/2019 3:43 AM [facility] Osmolality Calculated 290 270 - 300 mOsm/kg 01/05/2019 3:43 AM [facility] eGFR >60 >60 mL/min/1.7 3 m2 01/05/2019 3:43 AM [facility] Blood BLOOD SPECIMEN / Unknown Lab Venipuncture / Unknown 01/05/2019 2:32 AM CDT 01/05/2019 3:15 AM CDT us Itz Quigley MD LAB - CHEMISTRY ORDERABLES Final Result [address] [phone] * HIV-1 HIV-2 ANTIGEN/ANTIBODY (01/03/2019 7:05 PM CDT) HIV Antigen/Antibod y 1 & 2 Non-reacti ve Non-react denia 01/03/2019 7:49 PM CDT [facility] Comment: Neither HIV-1 p24 Antigen nor HIV-1/HIV-2 Antibodies are detected. Blood BLOOD SPECIMEN / Unknown Venipuncture / Unknown 01/03/2019 7:05 PM CDT 01/03/2019 7:06 PM CDT us Glenn Silver MD LAB - HEMATOLOGY ORDERABLES F inal Result [address] [phone] * HEPATITIS C AB SCREEN RFLX NAAT QUANT (01/03/2019 7:05 PM CDT) Hepatitis C Antibody Non-react deniamercedez Nj-reac titiffanie 01/03/2019 7:49 PM CDT [facility] Comment: [...] 7:05 PM CDT 01/03/2019 7:06 PM CDT us Glenn Silver MD LAB - CHEMISTRY ORDERABLES Fi nal Result [address] [phone] from Last 3 Months or Most Recently Relevant to Health Maintenance Insurance AETNA AETNA Advance Directives Documents on File Type Date Recorded Patient Wire Bound Box Machine Operator Expl anation Adv Directive/Living Will/POA 01/12/2019 6:26 AM * Full Code (Latest Code Status on File) Date Activated Date Inactivated Comments 01/06/2019 9:41 AM 01/08/2019 2:07 PM Care Teams Helper Driver Relationship Specialty Start Date End Date Chencho Sosa MD [address] [place] [address] PCP - General Family Medicine 01/03/19
--- OUTSIDE RECORDS SUMMARY | 2025-01-25 00:17 | XMS_ITS | Encounter Summary ---
Author Organization [facility] Address [facility] [place] [address] Care Team Providers Care Manufacturer'S Service Representative Name Role Phone Chencho Sosa MD Primary Care Provider [phone] Wendy Trevino MD Unavailable [phone] Encounter Details Date Type Department Care Team (Latest Contact Info) Description 04/03/[address] [facility] Multispecialty Care - [facility] [address] [facility], [address] [place] [address] Jett Clement MD 3 [place], [place] [phone] Tashi Esposito - Physician Statement to be [...] Sexual Orientation Straight 06/02/2021 8: 10 AM TOOL RADIAL DRILL PRESS SET UP OPERATOR Occupation Industry Job Start [...] Description 03/11/2025 10:40 AM CDT Office Visit [facility] Neurology Speciality Clinic - [address] [place] [phone] Jett Clement MD 3 [facility] [address] [place], [place] [address] 11/10/2025 2:00 PM CDT Office Visit [facility] THREE [facility], [address] [place], [place] [address] Wendy Trevino MD Three [facility]. [address] [place] [address] documented as of this encounter Goals Goal Patient Goal Type Associated Problems Recent Progress Patient-Stated? Author Health - patient able to perform ADLs independently General No Tori Garcia, CALL TAKER documented as of this encounter Visit Diagnoses Not on filedocumented in this encounter Additional Health Concerns Assessment Noted Time PHQ-9 Depression Total Score: 0 08/30/19 2:43 PM CDT documented as of this encounter Care Teams Manufacturer'S Service Representative Relationship Specialty Start Date End Date Chencho Sosa MD [address] [place] [address] PCP - General FAMILY PRACTICE 03/11/18 Wendy Trevino MD Three [facility]. [address] [place] [address] Janet Weld Fitter INTERVENTIONAL CARDIOLOGY 04/02/18 documented as of this encounter
--- OUTSIDE RECORDS SUMMARY | 2025-01-25 00:17 | XMS_ITS | Continuity of Care Document ---
Author Organization [facility] Address [address] [place] [address] [address] [place] [address] Phone Care Team Providers Care Combine Inspector Name Role Phone Adriano Cole Unavailable Unavailable Procedures Procedure Date Therapeutic Activities Therapeutic Exercise Neuromuscular Re-Ed Hot or Cold Pack Neuromuscular Re-Ed Therapeutic Activities Therapeutic Exercise Hot or Cold Pack Therapeutic Activities Therapeutic Exercise Neuromuscular Re-Ed Therapeutic Exercise Neuromuscular Re-Ed Therapeutic Activities Hot or Cold Pack Therapeutic Exercise Hot or Cold Pack Neuromuscular Re-Ed Therapeutic Activities Therapeutic Activities Neuromuscular Re-Ed Hot or Cold Pack Therapeutic Exercise Therapeutic Activities Neuromuscular Re-Ed Hot or Cold Pack Therapeutic Exercise Therapeutic Activities Neuromuscular Re-Ed Therapeutic Exercise Hot or Cold Pack Therapeutic Activities Progress Note Neuromuscular Re-Ed Therapeutic Exercise Hot or Cold Pack Therapeutic Activities Therapeutic Exercise Hot or Cold Pack Neuromuscular Re-Ed Neuromuscular Re-Ed Therapeutic Exercise Hot or Cold Pack Therapeutic Activities Neuromuscular Re-Ed Hot or Cold Pack Therapeutic Exercise Therapeutic Activities Therapeutic Activities Hot or Cold Pack Neuromuscular Re-Ed Therapeutic Exercise Neuromuscular Re-Ed Therapeutic Activities Therapeutic Exercise Therapeutic Activities Neuromuscular Re-Ed Hot or Cold Pack Therapeutic Exercise Neuromuscular Re-Ed Therapeutic Activities Therapeutic Exercise Hot or Cold Pack Hot or Cold Pack Neuromuscular Re-Ed Therapeutic Exercise Therapeutic Activities Therapeutic Activities Neuromuscular Re-Ed Manual Therapy Hot or Cold Pack Therapeutic Exercise Therapeutic Activities Neuromuscular Re-Ed Therapeutic Exercise Manual Therapy Hot or Cold Pack Therapeutic Activities Neuromuscular Re-Ed Therapeutic Exercise Progress Note Manual Therapy Hot or Cold Pack Therapeutic Activities Hot or Cold Pack Neuromuscular Re-Ed Manual Therapy Therapeutic Exercise Neuromuscular Re-Ed Hot or Cold Pack Therapeutic Activities Therapeutic Exercise Manual Therapy Therapeutic Activities Neuromuscular Re-Ed Therapeutic Exercise Manual Therapy Hot or Cold Pack Therapeutic Activities Neuromuscular Re-Ed Therapeutic Exercise Manual Therapy Hot or Cold Pack Therapeutic Activities Therapeutic Exercise Manual Therapy Neuromuscular Re-Ed Hot or Cold Pack Therapeutic Activities Manual Therapy Therapeutic Exercise Neuromuscular Re-Ed Hot or Cold Pack Therapeutic Exercise Neuromuscular Re-Ed Therapeutic Activities Electrical Stimulation Hot or Cold Pack Therapeutic Activities Neuromuscular Re-Ed Therapeutic Exercise Manual Therapy Electrical Stimulation Hot or Cold Pack Therapeutic Activities Neuromuscular Re-Ed Therapeutic Exercise PT Evaluation Moderate Complexity Neuromuscular Re-Ed Therapeutic Exercise Advance Directives Directive Yes / No Effective Date File Name No Information Encounters Encounter Description Practice Location Reason(s) For Visit Diagnoses Date Provider Providers Copied on Encounter [facility], [id number], tel:[phone] [place] No Information 1 [place]. [address] [facility], [address], [place], [address], [place]. tel:[phone] Referring Provider: Chencho Sosa [facility] [address], [place], [address]. tel:[phone] [facility] [facility] [address], [place], [place], [address], tel:[phone] [place] No Information 1 Antony Oh. [address] [facility], [address], [place], [place], [facility], [place]. tel:[phone] Referring Provider: Chencho Sosa [address] [place] [address] [address], [place], [address]. tel:[phone] [address], [place], [place], [id number], [place] tel:[phone] [place] No Information 1 Antony Oh. [address] [place] [address], [address], [place], [facility], [place]. tel:[phone] Referring Provider: Alexander Mcclain[address] [place] [address] [address], [place], [address]. tel:[phone] [address], [place], [place], [id number], [place] tel:[phone] [place] No Information 1 Antony Oh. [address] [place] [address], [address], [place], [facility], [place]. tel:[phone] Referring Provider: Alexander Mcclain[address] [place] [address] [address], [place], [address]. tel:[phone], [place], [id number], [place] tel:[phone] [place] No Information 1 Antony Oh. [address] [place] [address], [address], [place], [address], [place]. tel:[phone] Referring Provider: Chencho Sosa [address] [place] [address] [address], [place], [address]. tel:[phone] [address], [place], [id number], [place] tel:[phone] [place] No Information 1 Antony Oh. [address] [place] [address], [address], [place], [address], [place]. tel:[phone] Referring Provider: Alexander Mcclain[address] [place] [address] [address], [place], [address]. tel:[phone] [address], [place], [address], [place] tel:[phone] [place] No Information 1 Muehl Adriano. [address] [place] [address], [address], [place], [facility], [place]. tel:[phone] Referring Provider: Chencho Sosa [address] [place] [address] [address], [place], [address]. tel:[phone] [address] [address], [id number], tel:[phone] [place] No Information 1 Muehl Adriano. [address] [place] [address], [address], [place], [facility], [place]. tel:[phone] Referring Provider: Chencho Sosa [address] [place] [address] [address], [place], [address]. tel:[phone] [address] [address], [id number], [place] tel:[phone] [place] No Information 1 Muehl Adriano. [address] [place] [address], [address], [place], [facility], [place]. tel:[phone] Referring Provider: Rich Mcclain [facility] [address], [place], [address]. tel:[phone] [address] [address], [id number], [place] tel:[phone] [place] No Information 1 Muehl Adriano. [address] [place] [address], [address], [place], [address], [place]. tel:[phone] Referring Provider: Alexander Mcclain[address] [place] [address] [address], [place], [address]. tel:[phone] [facility] [address] [place], [place] [address], [place], [id number], [place] tel:[phone] [place] No Information 1 Yanely Johnsona. . Referring Provider: Chencho Sosa [address] [place] [address] [address], [place], [address]. tel:[phone], [place], [id number], [place] tel:[phone] [place] No Information 1 Nipareshhomarilee Johnsona. . Referring Provider: Chencho Sosa [address] [place] [address] [address], [place], [facility]. tel:[phone] [facility] [address] [place] [address] [address], [place], [place], [id number], [place] tel:[phone] [place] No Information 1 Antony Oh[address] [place] [address], [address], [place], [facility], [place]. tel:[phone] Referring Provider: Chencho Sosa [address] [place] [address] [address], [place], [address]. tel:[phone] [address], [address], [place] tel:[phone] [place] No Information 1 Antony [place]. [address] [facility], [address], [place], [facility], [place]. tel:[phone] Referring Provider: Alexander Mcclain[address] [place] [address] [address], [place], [address]. tel:[phone] [address], [place], [address], [place] tel:[phone] [place] No Information 1 Antony Oh. [address] [facility], [address], [place], [facility], [place]. tel:[phone] Referring Provider: Alexander Mcclain[address] [place] [address] [address], [place], [address]. tel:[phone] [address], [place], [place], [address], tel:[phone] [place] No Information Singh-0 4- 1 Muehl Adriano. [address] [place] [address], [address], [place], [facility], [place]. tel:[phone] Referring Provider: Chencho Sosa [address] [place] [address] [address], [place], [address]. tel:[phone] [address] [address], [address], [place] tel:[phone] [place] No Information Dec-3 1-202 0 Muehl Adriano. [address] [place] [address], [address], [place], [facility], [place]. tel:[phone] Referring Provider: Chencho Sosa [address] [place] [address] [address], [place], [address]. tel:[phone] [address], [address], [place] tel:[phone] [place] No Information Dec-2 9-202 0 Muehl Adriano. [address] [place] [address], [address], [place], [facility], [place]. tel:[phone] Referring Provider: Chencho Sosa [address] [place] [address] [address], [place], [address]. tel:[phone] [address], [place], [address], [place] tel:[phone] [place] No Information Dec-2 3-202 0 Muehl Adriano. [address] [place] [address], [address], [place], [facility], [place]. tel:[phone] Referring Provider: Chencho Sosa [address] [place] [address] [address], [place], [address]. tel:[phone], [place], [address], tel:[phone] [place] No Information Dec-2 1-202 0 Muehl Adriano. [address] [place] [address], [address], [place], [facility], [place]. tel:[phone] Referring Provider: Chencho Sosa [address] [place] [address] [address], [place], [facility]. tel:[phone], [place], [place], [address], tel:[phone] [place] No Information Dec-1 7-202 0 Muehl Adriano. [address] [place] [address], [address], [place], [facility], [place]. tel:[phone] Referring Provider: Chencho Sosa [address] [place] [address] [address], [place], [facility]. tel:[phone] [address], [place], [address], tel:[phone] [place] No Information Dec-1 5-202 0 Muehl Adriano. [address] [place] [address], [address], [place], [facility], [place]. tel:[phone] Referring Provider: Chencho Sosa [address] [place] [address] [address], [place], [address]. tel:[phone], [id number], tel:[phone] [place] No Information Dec-1 0-202 0 Muehl Adriano. [address] [facility], [address], [place], [facility], [place]. tel:[phone] Referring Provider: Chencho Sosa [address] [place] [address] [address], [place], [facility]. tel:[phone] [address] [address], [place], [address], tel:[phone] [place] No Information Dec-0 8-202 0 Muehl Adriano. [address] [facility], [address], [place], [address], [place]. tel:[phone] Referring Provider: Chencho Sosa [address] [place] [address] [address], [place], [facility]. tel:[phone] [place], [place] [address], [place], [address], [place] tel:[phone] [place] No Information Dec-0 3-202 0 Muehl Adriano. [address] [place] [address], [address], [place], [facility], [place]. tel:[phone] Referring Provider: Chencho Sosa [address] [place] [address] [address], [place], [facility]. tel:[phone] [place], [place] [address], [place], [place], [address], tel:[phone] [place] No Information Dec-0 1-202 0 Muehl Adriano. [address] [place] [address], [address], [place], [facility], [place]. tel:[phone] Referring Provider: Chencho Sosa [address] [place] [address] [address], [place], [facility]. tel:[phone] [place] [address] [address], [place], [address], [place] tel:[phone] [place] No Information Nov-2 7-202 0 Emmanuel Law . Referring Provider: Chencho Sosa [address] [place] [address] [address], [place], [facility]. tel:[phone] [address], [place], [place], [address], [place] tel:[phone] [place] No Information Nov-2 4-202 0 Muehl Adriano. [address] [place] [address], [address], [place], [facility], [place]. tel:[phone] Referring Provider: Chencho Sosa [address] [place] [address] [address], [place], [facility]. tel:[phone], [id number], tel:[phone] [place] No Information 0 Antony [place]. [address] [facility], [facility] [address] [address], . tel:[phone] Referring Provider: Chencho Sosa [address] [facility] [address], [place], [facility]. tel:[phone], [id number], tel:[phone] [place] No Information 0 Antony Oh. [address] [facility], [address] [address], . tel:[phone] Referring Provider: Chencho Sosa [address] [facility] [address], [place], [facility]. tel:[phone] Family History Family Member Type Diagnosis Age At Onset No Information Payers Payer name Insurance type Covered democrat ID Brea ramon(s) [employer] CI [id number] Social History Type Description Quantity Date Captured [...]
[2025-01-25 00:23] LABS: CRP 15.2 mg/dL (<1.0)
[2025-01-25] MEDS: CEFEPIME 2 GM in SODIUM CHLORIDE 0.9% IV 50 ML 100 ML IVPB (00:42)
[2025-01-25 00:49] LABS: Add Urine Microscopic? YES; Appearance Urine Turbid (Clear); Glucose Urine UA Negative (Negative); Leukocyte Esterase Ur 2+ LEU/UL (Negative); Need Manual Microscopic Reviewed; Nitrate Urine Negative (Negative); Non Pathogenic Casts >20; Specific Grav Ur 1.017 (1.001-1.035)
[2025-01-25] MEDS: VANCOMYCIN 1,500 MG/NS 500 ML 1,500 MG/500 ML BAG 250 MG IVPB (02:18)
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
[2025-01-25] MEDS: NOREPINEPHRINE 8 MG/D5W 250 ML 8 MG/250 ML BAG 9.38 MG IV CONT (03:53)
[2025-01-25] MEDS: LACTATED RINGERS 1,000 ML 150 ML IV CONT (04:00)
--- NOTE | 2025-01-25 06:53 | ADMGEN ---
This patient, Tashi Esposito, was admitted to Intensive Care Unit-3. Patient/family oriented to hospital policies and general routines including ID bracelet, bed and alarms, visiting hours, pain management, procedures, bathroom and other care routines, personal items, smoking policy, room service/diet, and visiting hours. Information on how to activate the Rapid Response Team has been discussed. Patient/Family are encouraged to report perceived risks to care and to ask questions if they do not understand what they are told or what they should do.
[2025-01-25 08:38] LABS: Hematocrit 38.4 % (42.0-52.0); Hemoglobin 12.3 g/dL (14.0-18.0); Immature Platelet Fraction Pct 7.7 % (0.9-11.2); Mean Corpuscular HGB Conc 32.0 g/dl (32-36); Mean Corpuscular Hemoglobin 28.1 pg (26-34); Mean Corpuscular Volume 87.7 fl (80-100); Platelet Count Result 110 k/mm3 (150-375); Red Blood Count 4.38 M/mm3 (4.6-6.20); White Blood Count 24.6 K/mm3 (4.5-10.0)
[2025-01-25 08:43] LABS: Ammonia < 9 umol/L (9-30)
[2025-01-25 08:48] LABS: Alanine Aminotransferase 22 U/L (6-50); Albumin Level 3.1 g/dL (3.5-5.1); Alkaline Phosphatase 108 U/L (38-126); Anion Gap 13 mmol/L (4-12); Aspartate Amino Transferase 33 U/L (17-59); Bilirubin,Total 3.4 mg/dL (0.2-1.3); Blood Urea Nitrogen 34 mg/dL (9-20); Calcium 8.0 mg/dL (8.4-10.2); Carbon Dioxide 16 mmol/L (22-30); Chloride 110 mmol/L (98-107); Estimated CRCL calculation 25 ml/min; Estimated Glomerular Filt Rate 18; Glucose 144 mg/dL (65-110); Magnesium 1.5 mg/dL (1.6-2.3); Potassium 3.9 mmol/L (3.4-5.0); Sodium 139 mmol/L (137-145); Total Protein 6.3 g/dL (6.3-8.2)
[2025-01-25 08:56] LABS: MRSA (PCR) DETECTED (NOT DETECTE)
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
[2025-01-25] MEDS: ENOXAPARIN 30 MG/0.3 ML SYRINGE SUB-Q (09:16)
[2025-01-25] MEDS: MEROPENEM 1 GM in SODIUM CHLORIDE 0.9% IV 100 ML 200 ML IVPB (09:16)
[2025-01-25] MEDS: PANTOPRAZOLE SODIUM IV 40 MG VIAL IV PUSH (09:17)
[2025-01-25] MEDS: MAGNESIUM SULF 2 GM/WATER 50ML 2 GM/50 ML BAG IVPB (09:20)
[2025-01-25 09:29] LABS: Thyroid Stimulating Hormone Reflex 2.360 uIU/mL (0.465-4.68)
[2025-01-25] MEDS: SODIUM BICARBONATE 8.4% 150 MEQ in WATER, STERILE FOR INJECTION 950 ML 100 MEQ IV CONT (09:48)
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
--- NOTE | 2025-01-25 11:32 | PC.NURSE ---
MD made aware that patient has audible wheezing noted, this is a change from prior respiratory assessment and continues have labored respiratory rate with diaphragmatic breathing (this is not a change from prior assessment). New orders to discontinue IV fluids at this time.
--- NOTE | 2025-01-25 13:01 | WPDHPUPDATE1 ---
History and Physical Update Update Date/Time: 01/25/25 13:01 History and Physical has been reviewed, including an updated exam of the patient. There are NO changes in the patient's condition. Risks, benefits, and alternatives have been discussed and questions answered. Patient agrees to proceed with procedure.
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
[2025-01-25] MEDS: LACTATED RINGERS 1,000 ML 30 ML IV CONT (13:40)
[2025-01-25] MEDS: LIDOCAINE 2% GEL UROJET 10 ML PKG MUCOUS MEM (14:36)
--- NOTE | 2025-01-25 14:45 | P.OP_ITS ---
Procedure Note - Detailed Date of Procedure 01/25/25 Pre-op Diagnosis Septic shock, obstructing right UPJ calculus Post-op Diagnosis Same Procedure Performed Cystoscopy, right retrograde, right stent placement 4.8 Wallisian contour, complex Peralta catheter placement 16 Wallisian Surgeon Korey Suazo MD Anesthesia General Description of Procedure Patient was taken to the operative suite correctly identified. Once anesthesia was obtained was placed in dorsal lithotomy position and prepped and draped usual sterile fashion. Nineteen Wallisian scope was inserted the bladder. Prostate did not appear overly obstructive. The bladder itself was 1 to 2+ trabeculation. No tumors noted at this time. The right ureteral orifice was cannulated with a ureteral catheter and a pyelogram made it up into the collecting system. Sensor wire was then inserted. 4.8 Wallisian contour stent was then placed with the proximal end coiled in the renal pelvis distal in the bladder. It was noted that there was some purulence which was draining upon placement of the wire. In order to maximize drainage I anesthetized the urethra with 2% viscous lidocaine and then placed a 16 Wallisian Peralta with 10 cc in the balloon. That can be removed in the next day or 2. The stone will need to be addressed once he gets over this acute episode. This completes dictation. Estimated Blood Loss 0 Drains Yes Packing No Pathology None sent Complications No immediate complications Condition Stable Disposition PACU
[2025-01-25] MEDS: ACETAMINOPHEN 325 MG TABLET 650 MG PO (15:55)
[2025-01-25] MEDS: CENTRAL LINE FLUSH 10 ML IV PUSH ×2 (15:55→21:53)
[2025-01-25] MEDS: MEROPENEM 500 MG in SODIUM CHLORIDE 0.9% IV 100 ML 200 ML IVPB (21:53)
[2025-01-25] MEDS: ACETAMINOPHEN 650 MG SUPPOSITORY RECTAL (21:54)
[2025-01-25 23:06] LABS: Anion Gap 10 mmol/L (4-12); Blood Urea Nitrogen 46 mg/dL (9-20); Calcium 7.6 mg/dL (8.4-10.2); Carbon Dioxide 19 mmol/L (22-30); Chloride 109 mmol/L (98-107); Estimated CRCL calculation 19 ml/min; Estimated Glomerular Filt Rate 13; Glucose 120 mg/dL (65-110); Potassium 4.2 mmol/L (3.4-5.0); Sodium 138 mmol/L (137-145)
[2025-01-26] VITALS (12 sets, daily range): BP systolic 113–150; BP diastolic 78–94; PULSE 92–200; RESP 20–25; TEMP 36.7–37.5; O2SAT 92–96
[2025-01-26] MEDS: VANCOMYCIN 1,250 MG/NS 250 ML 1,250 MG/250 ML BAG 166.67 MG IVPB (02:43)
[2025-01-26 05:28] LABS: Hematocrit 41.0 % (42.0-52.0); Hemoglobin 13.0 g/dL (14.0-18.0); Immature Platelet Fraction Pct 9.8 % (0.9-11.2); Mean Corpuscular HGB Conc 31.7 g/dl (32-36); Mean Corpuscular Hemoglobin 27.9 pg (26-34); Mean Corpuscular Volume 88.0 fl (80-100); Platelet Count Result 90 k/mm3 (150-375); Red Blood Count 4.66 M/mm3 (4.6-6.20); White Blood Count 23.1 K/mm3 (4.5-10.0)
[2025-01-26] MEDS: CENTRAL LINE FLUSH 10 ML IV PUSH (05:32)
[2025-01-26 05:53] LABS: Alanine Aminotransferase 21 U/L (6-50); Albumin Level 3.1 g/dL (3.5-5.1); Alkaline Phosphatase 136 U/L (38-126); Anion Gap 11 mmol/L (4-12); Aspartate Amino Transferase 37 U/L (17-59); Bilirubin,Total 2.5 mg/dL (0.2-1.3); Blood Urea Nitrogen 51 mg/dL (9-20); Calcium 7.9 mg/dL (8.4-10.2); Carbon Dioxide 18 mmol/L (22-30); Chloride 110 mmol/L (98-107); Estimated CRCL calculation 19 ml/min; Estimated Glomerular Filt Rate 11; Glucose 116 mg/dL (65-110); Magnesium 2.2 mg/dL (1.6-2.3); Potassium 4.1 mmol/L (3.4-5.0); Sodium 139 mmol/L (137-145); Total Protein 6.0 g/dL (6.3-8.2)
--- NOTE | 2025-01-26 07:59 | PC.NURSE ---
This RN notified Dr. Alex of pt's platelets of 90,000 this AM. Ok for pt to receive prophylactic dose of Lovenox 30mg/0.3 ml SQ daily.
[2025-01-26] MEDS: MEROPENEM 500 MG in SODIUM CHLORIDE 0.9% IV 100 ML 200 ML IVPB ×2 (08:11→21:02)
[2025-01-26] MEDS: SODIUM BICARBONATE 8.4% 150 MEQ in WATER, STERILE FOR INJECTION 950 ML 100 MEQ IV CONT (08:11)
[2025-01-26] MEDS: PANTOPRAZOLE SODIUM IV 40 MG VIAL IV PUSH (08:11)
[2025-01-26] MEDS: ENOXAPARIN 30 MG/0.3 ML SYRINGE SUB-Q (08:11)
--- NOTE | 2025-01-26 08:15 | PM.IMPN ---
Progress Note: A&P Assessment and Plan (1) Septic shock: Code(s): A41.9 - Sepsis, unspecified organism; R65.21 - Severe sepsis with septic shock Status: Acute Assessment and Plan: Septic shock secondary to UTI with 14 mm right ureteral stone with right hydronephrosis Patient received IV fluid bolus and was on on maintenance IV fluids. Fluids had to be stopped due to concern of volume overload. This morning patient is on room air. With worsening renal function I will give him additional conservative amount of IV fluids. His lung sounds clear and he is on room air His Levophed was weaned of yesterday 01/25 and blood pressure is adequate Continue meropenem Patient also received vancomycin in the ER but will hold further dosing due to RAJESH Blood and urine culture have been sent and are pending Status post stent placement by Urology (2) Acute kidney injury: Code(s): N17.9 - Acute kidney failure, unspecified Status: Acute Assessment and Plan: Acute kidney injury likely multifactorial secondary to septic shock and obstruction from stone Now status post stenting IV fluids as above mention Monitor electrolytes Monitor urine output and creatinine CT scan findings as above Consult nephrology (3) Urinary tract infection: Code(s): N39.0 - Urinary tract infection, site not specified Status: Acute Assessment and Plan: See above (4) Muscular dystrophy: Onset Date: ~06/2022 Code(s): G71.00 - Muscular dystrophy, unspecified Status: Acute (5) Leukodystrophy: Onset Date: ~06/2021 Code(s): G31.80 - Leukodystrophy, unspecified Status: Acute (6) Electrolyte abnormality: Code(s): E87.8 - Other disorders of electrolyte and fluid balance, not elsewhere classified Status: Acute Assessment and Plan: Magnesium improved after replacement (7) Encephalopathy: Code(s): G93.40 - Encephalopathy, unspecified Status: Acute Assessment and Plan: Exam as above. Baseline unknown. Patient likely has acute metabolic encephalopathy from sepsis which has improved as patient is partially oriented today Head CT was negative Normal TSH and ammonia Plan DVT prophylaxis -Lovenox Stress ulcer prophylaxis -PPI Nutrition -resume diet Code Status - Full Code Incentive spirometry, PT OT, up in chair Subjective Date/time seen: 01/26/25 Patient had stent placement yesterday. He states he feels better this morning and denies any specific complaints. He answers no to most questions. He is partially oriented today. Patient denies fever, chest pain, shortness of breath, cough, nausea vomiting, abdominal pain,, diarrhea, headache or constipation. All other systems were reviewed and were negative. Patient currently off IV fluids and off of vasopressors. Yesterday patient's fluids were discontinued due to concern of volume overload as patient, per nursing staff was wheezing and heavy breathing although maintaining his saturations on room air. Review of Systems Review of Systems: All systems reviewed & are unremarkable except as noted in HPI and below (HPI) Exam Narrative: General: Pt is drowsy but arousable and in NAD Lungs/Chest: Trachea central Clear BS B/L, No crackles or wheezing. Breath sounds are decreased on both bases Cardiac: RRR. Normal S1 S2. No murmurs Circulation: Pedal pulses are intact and symmetrical. Abdomen: Normal bowel sounds.. Soft. NT. ND. Extremities: No clubbing, cyanosis or edema. Warm : [place] in place Neurologic: AO x1. Patient is aware he is at [facility] but does not know the ER president Follows commands with all 4 extremities but is weak right side is weaker than left side.PERRL Skin: No Rash Objective Data Vital Signs Vital Signs: Vital Signs - 24 hr 01/25/25 08:50 01/25/25 09:00 01/25/25 09:20 Temperature Pulse Rate 106 H 101 H 95 Respiratory Rate 29 H Blood Pressure 119/82 115/78 112/79 Pulse Oximetry 95 Oxygen Delivery Oxygen Flow Rate 01/25/25 10:00 01/25/25 10:00 01/25/25 11:00 Temperature 37.3 C Pulse Rate 100 98 101 H Respiratory Rate 27 H 28 H Blood Pressure 107/74 130/77 Pulse Oximetry 96 100 Oxygen Delivery Oxygen Flow Rate 01/25/25 12:00 01/25/25 12:00 01/25/25 12:00 Temperature 37.3 C Pulse Rate 101 H 97 97 Respiratory Rate 28 H 27 H Blood Pressure 109/74 Pulse Oximetry 100 96 Oxygen Delivery Room Air Oxygen Flow Rate 01/25/25 13:00 01/25/25 13:33 01/25/25 14:55 Temperature 37.5 C 37.8 C H Pulse Rate 106 H 100 88 Respiratory Rate 33 H 28 H Blood Pressure 143/96 H 130/77 133/86 Pulse Oximetry 96 100 100 Oxygen Delivery Room Air Simple Face Mask Oxygen Flow Rate 8 01/25/25 15:10 01/25/25 15:25 01/25/25 15:30 Temperature 37.3 C Pulse Rate 100 96 Respiratory Rate 22 H 22 H Blood Pressure 131/89 138/88 Pulse Oximetry 100 100 Oxygen Delivery Simple Face Mask Nasal Cannula Oxygen Flow Rate 8 3 01/25/25 15:30 01/25/25 15:55 01/25/25 16:00 Temperature 38.3 C H Pulse Rate 99 112 H Respiratory Rate 28 H 28 H Blood Pressure 151/90 H Pulse Oximetry 99 99 Oxygen Delivery Nasal Cannula Room Air Oxygen Flow Rate 3 01/25/25 16:00 01/25/25 17:07 01/25/25 18:00 Temperature 38.8 C H Pulse Rate 117 H 116 H Respiratory Rate Blood Pressure Pulse Oximetry Oxygen Delivery Oxygen Flow Rate 01/25/25 18:12 01/25/25 20:00 01/25/25 20:00 Temperature 38.8 C H 38.2 C H Pulse Rate 116 H 124 H Respiratory Rate 29 H 34 H Blood Pressure 147/79 H 147/98 H Pulse Oximetry 94 94 Oxygen Delivery Room Air Oxygen Flow Rate 01/25/25 20:00 01/25/25 21:54 01/25/25 22:00 Temperature 38.2 C H Pulse Rate 130 H 120 H Respiratory Rate Blood Pressure Pulse Oximetry Oxygen Delivery Oxygen Flow Rate 01/25/25 22:48 01/26/25 00:00 01/26/25 00:00 Temperature 37.8 C H 37.1 C Pulse Rate 103 H Respiratory Rate 25 H Blood Pressure 113/78 Pulse Oximetry 92 Oxygen Delivery Room Air Oxygen Flow Rate 01/26/25 00:00 01/26/25 02:00 01/26/25 04:00 Temperature 37.2 C Pulse Rate 111 H 105 H 94 Respiratory Rate 22 H Blood Pressure 124/89 Pulse Oximetry 94 Oxygen Delivery Oxygen Flow Rate 01/26/25 04:00 01/26/25 04:00 01/26/25 06:00 Temperature Pulse Rate 98 100 Respiratory Rate Blood Pressure Pulse Oximetry Oxygen Delivery Room Air Oxygen Flow Rate Intake/Output Intake/Output: Intake & Output 01/23/25 01/24/25 01/25/25 01/26/25 23:59 23:59 23:59 23:59 Intake Total 4197.4 250 Output Total 150 350 Balance 4047.4 -100 Meds/Results Medications: Active Medications Generic Name Dose Route Start Last Admin Trade Name Freq PRN Reason Stop Dose Admin Acetaminophen 650 mg 01/24/25 23:29 01/25/25 21:54 Acetaminophen 650 Mg Suppository RECTAL 650 mg Q6H PRN Administration Mild Pain (1-3) or Fever Acetaminophen 650 mg 01/25/25 04:57 01/25/25 15:55 Acetaminophen 325 Mg Tablet PO 650 mg Q4H PRN Administration Mild Pain (1-3) or Fever Enoxaparin Sodium 30 mg 01/25/25 09:00 01/26/25 08:11 Enoxaparin 30 Mg/0.3 Ml Syringe SUB-Q 30 mg DAILY PIETER Administration Fentanyl Citrate 25 mcg 01/25/25 13:39 Fentanyl Citrate Inj (*Crx) 100 Mcg/2 Ml Vial IV PUSH Q2M PRN Pain Meropenem 500 mg/ Sodium 100 mls @ 200 mls/hr 01/25/25 21:00 01/26/25 08:11 Chloride IVPB 200 mls/hr Q12H PIETER Administration Sodium Bicarbonate 150 meq/ 1,100 mls @ 100 mls/hr 01/26/25 08:00 01/26/25 08:11 Sterile Water IV CONT 01/26/25 18:59 100 mls/hr .Q11H PIETER Administration Ondansetron HCl 4 mg 01/25/25 04:57 Ondansetron Inj 4 Mg/2 Ml Vial IV PUSH Q4H PRN Nausea Ondansetron HCl 4 mg 01/25/25 13:39 Ondansetron Inj 4 Mg/2 Ml Vial IV PUSH ONCE PRN Nausea Pantoprazole Sodium 40 mg 01/25/25 09:00 01/26/25 08:11 Pantoprazole Sodium Iv 40 Mg Vial IV PUSH 40 mg QAM PIETER Administration Sodium Chloride 20 ml 01/25/25 06:42 Central Line Flush IV PUSH PRN PRN after blood draws Radiology Results: ITS Impressions Head CT 01/25/25 08:55 Impression: No intracranial hemorrhage, mass, or acute infarct. Atrophy and chronic white matter changes, as above. Chest/Abdomen/Pelvis CT 01/25/25 08:58 Impression: 14 mm proximal right ureteral stone with mild right hydronephrosis. Additional small bilateral nonobstructing renal stones. Cholelithiasis. Small fat-containing umbilical hernia. Chest X-Ray 01/25/25 09:27 IMPRESSION: 1.Interstitial and airspace opacities scattered throughout both lungs. Differential includes but is not limited to edema or pneumonia. Follow-up is recommended. 2. Blunting of the left costophrenic angle likely due to a small left-sided pleural effusion. Recommend follow-up to resolution. Labs Labs: Laboratory Results - last 24 hr 01/25/25 01/25/25 01/25/25 07:03 08:28 22:46 WBC 24.6 H RBC 4.38 L Hgb 12.3 L Hct 38.4 L MCV 87.7 MCH 28.1 MCHC 32.0 RDW 14.1 Plt Count 110 L MPV 11.6 H % Immature Plt Fraction 7.7 Sodium 139 138 Potassium 3.9 4.2 Chloride 110 H 109 H Carbon Dioxide 16 L 19 L Anion Gap 13 H 10 BUN 34 H 46 H D Creatinine 3.54 H 4.54 H Estim Creat Clear Calc 25 19 Estimated GFR 18 L 13 L Glucose 144 H 120 H Lactic Acid 3.0 H Calcium 8.0 L 7.6 L Phosphorus 4.8 H Magnesium 1.5 L Total Bilirubin 3.4 H AST 33 ALT 22 Alkaline Phosphatase 108 Ammonia < 9 L Total Protein 6.3 Albumin 3.1 L TSH (Reflex) 2.360 Nasal MRSA (PCR) Detected A* Random Vancomycin 01/26/25 01/26/25 01:23 05:06 WBC 23.1 H RBC 4.66 Hgb 13.0 L Hct 41.0 L MCV 88.0 MCH 27.9 MCHC 31.7 L RDW 14.2 Plt Count 90 L MPV 12.1 H % Immature Plt Fraction 9.8 Sodium 139 Potassium 4.1 Chloride 110 H Carbon Dioxide 18 L Anion Gap 11 BUN 51 H Creatinine 5.29 H Estim Creat Clear Calc 19 Estimated GFR 11 L Glucose 116 H Lactic Acid 1.7 Calcium 7.9 L Phosphorus 4.4 Magnesium 2.2 Total Bilirubin 2.5 H AST 37 ALT 21 Alkaline Phosphatase 136 H Ammonia Total Protein 6.0 L Albumin 3.1 L TSH (Reflex) Nasal MRSA (PCR) Random Vancomycin 10.5 Quality VTE Prophylaxis VTE prophylaxis: pharmacologic ordered
--- NOTE | 2025-01-26 09:19 | PC.NURSE ---
Lab called this RN regarding urine culture. Urine had been spilt during transit. We are unable to process the urine culture. This RN notified MD. New order received to obtain another urine culture. Order placed
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
--- NOTE | 2025-01-26 13:46 | P.PNUR_ITS ---
Progress Note: A&P Assessment and Plan (1) Calculus of proximal right ureter: Code(s): N20.1 - Calculus of ureter Status: Acute (2) Hydronephrosis: Qualifiers: Hydronephrosis type: with ureteral calculous obstruction Qualified Code(s): N13.2 - Hydronephrosis with renal and ureteral calculous obstruction Code(s): N13.30 - Unspecified hydronephrosis Status: Acute (3) Acute kidney injury: Code(s): N17.9 - Acute kidney failure, unspecified Status: Acute Assessment and Plan: Baseline Cr <1 (4) Urinary tract infection: Qualifiers: Urinary tract infection type: acute cystitis Hematuria presence: with hematuria Qualified Code(s): N30.01 - Acute cystitis with hematuria Code(s): N39.0 - Urinary tract infection, site not specified Status: Acute Assessment and Plan: Present on admission Plan - 59yoM admitted with urosepsis 2/2 an obstructing large right ureteral stone. He is POD1 right ureteral stent and Peralta catheter placement. Plan: - Agree with culture-directed IV antibiotics. Consider Infectious Disease consultation for antibiotic management. - Agree with Nephrology consultation for management of acute kidney injury. - A renal ultrasound was ordered for today by the ICU team. - A KUB is ordered for 01/27/2025. - Indwelling Peralta catheter to remain in place for now. Plan for a voiding trial prior to discharge, no sooner than , 01/28/2025. - Definitive outpatient stone treatment and stent management will be required after the infection clears and other acute medical issues resolve. This was discussed with his HC-POA at bedside this afternoon. No further urologic surgical intervention is planned during this admission. Urology to follow peripherally. Please call with questions. Subjective Subjective Date/Time Seen: 01/26/25 13:46 Interval history: This is a 59-year-old male with a history of progressive leukodystrophy, nonobstructive coronary artery disease, and overactive bladder, who was admitted from his residential on 01/24/2025 for severe sepsis, bacteremia, and acute kidney injury secondary to an obstructing 14mm proximal right ureteral stone with mild hydronephrosis. He underwent a right ureteral stent and indwelling Peralta catheter placement on 01/25/[address] Suazo. He has a past urologic history of a left ureteral stone treated with ureteroscopy and stenting [place] [address] Gr, and a history of a bulbar urethral stricture. He is currently afebrile, reporting his pain is okay and denies body spasms, abdominal pain, or nausea. He is currently on IV meropenem. -PERTINENT LABS: 01/26/2025 - WBC 23.1, Hgb 13.0, Plt 90, Cr 5.29, lactic acid 1.4 01/25/2025 - Cr 3.54 01/24/2025 - Cr 2.71, lactic acid 3.0. Urinalysis: 2+ LE, 3+ blood, >100 RBC, >100 WBC. Blood culture growing gram negative bacilli. Urine culture reportedly spilled intransit. -PERTINENT IMAGIN01/25/2025 CT abdomen/pelvis without contrast ([facility]) - 14 mm stone in the very proximal right ureter with mild right hydronephrosis. Additional small bilateral nonobstructing renal stones. Cholelithiasis. Small fat- containing umbilical hernia. Exam Const: General: comfortable and no acute distress Resp: Effort & Inspection: normal respiratory effort Urinary Catheter: Urinary Catheter: patent and draining Neuro: Speech: normal speech Psych: Mental Status: mental status grossly normal Objective Data Vital Signs Vital Signs: Vital Signs - 24 hr 01/25/25 14:55 01/25/25 15:10 01/25/25 15:25 Temperature 100.0 F H Pulse Rate 88 100 96 Respiratory Rate 28 H 22 H 22 H Blood Pressure 133/86 131/89 138/88 Pulse Oximetry 100 100 100 Oxygen Delivery Simple Face Mask Simple Face Mask Nasal Cannula Oxygen Flow Rate 8 8 3 01/25/25 15:30 01/25/25 15:30 01/25/25 15:55 Temperature 99.2 F 100.9 F H Pulse Rate 99 Respiratory Rate 28 H Blood Pressure 151/90 H Pulse Oximetry 99 Oxygen Delivery Nasal Cannula Oxygen Flow Rate 3 01/25/25 16:00 01/25/25 16:00 01/25/25 17:07 Temperature 102 F H Pulse Rate 112 H 117 H Respiratory Rate 28 H Blood Pressure Pulse Oximetry 99 Oxygen Delivery Room Air Oxygen Flow Rate 01/25/25 18:00 01/25/25 18:12 01/25/25 20:00 Temperature 101.8 F H Pulse Rate 116 H 116 H Respiratory Rate 29 H Blood Pressure 147/79 H Pulse Oximetry 94 Oxygen Delivery Room Air Oxygen Flow Rate 01/25/25 20:00 01/25/25 20:00 01/25/25 21:54 Temperature 100.8 F H 100.8 F H Pulse Rate 124 H 130 H Respiratory Rate 34 H Blood Pressure 147/98 H Pulse Oximetry 94 Oxygen Delivery Oxygen Flow Rate 01/25/25 22:00 01/25/25 22:48 01/26/25 00:00 Temperature 100.0 F H 98.8 F Pulse Rate 120 H 103 H Respiratory Rate 25 H Blood Pressure 113/78 Pulse Oximetry 92 Oxygen Delivery Oxygen Flow Rate 01/26/25 00:00 01/26/25 00:00 01/26/25 02:00 Temperature Pulse Rate 111 H 105 H Respiratory Rate Blood Pressure Pulse Oximetry Oxygen Delivery Room Air Oxygen Flow Rate 01/26/25 04:00 01/26/25 04:00 01/26/25 04:00 Temperature 98.9 F Pulse Rate 94 98 Respiratory Rate 22 H Blood Pressure 124/89 Pulse Oximetry 94 Oxygen Delivery Room Air Oxygen Flow Rate 01/26/25 06:00 01/26/25 08:00 01/26/25 08:00 Temperature 98.0 F Pulse Rate 100 92 92 Respiratory Rate 20 20 Blood Pressure 150/94 H Pulse Oximetry 95 95 Oxygen Delivery Room Air Oxygen Flow Rate 01/26/25 12:00 Temperature 98.5 F Pulse Rate 100 Respiratory Rate 22 H Blood Pressure 140/93 H Pulse Oximetry 96 Oxygen Delivery Oxygen Flow Rate Intake/Output Intake/Output: Intake & Output 01/23/25 01/24/25 01/25/25 01/26/25 23:59 23:59 23:59 23:59 Intake Total 4197.4 350 Output Total 150 350 Balance 4047.4 0 Meds/Results Medications: Active Medications Generic Name Dose Route Start Last Admin Trade Name Freq PRN Reason Stop Dose Admin Acetaminophen 650 mg 01/24/25 23:29 01/25/25 21:54 Acetaminophen 650 Mg Suppository RECTAL 650 mg Q6H PRN Administration Mild Pain (1-3) or Fever Acetaminophen 650 mg 01/25/25 04:57 01/25/25 15:55 Acetaminophen 325 Mg Tablet PO 650 mg Q4H PRN Administration Mild Pain (1-3) or Fever Enoxaparin Sodium 30 mg 01/25/25 09:00 01/26/25 08:11 Enoxaparin 30 Mg/0.3 Ml Syringe SUB-Q 30 mg DAILY PIETER Administration Fentanyl Citrate 25 mcg 01/25/25 13:39 Fentanyl Citrate Inj (*Crx) 100 Mcg/2 Ml Vial IV PUSH Q2M PRN Pain Meropenem 500 mg/ Sodium 100 mls @ 200 mls/hr 01/25/25 21:00 01/26/25 10:55 Chloride IVPB Infused Q12H PIETER Infusion Sodium Bicarbonate 150 meq/ 1,100 mls @ 100 mls/hr 01/26/25 08:00 01/26/25 08:11 Sterile Water IV CONT 01/26/25 18:59 100 mls/hr .Q11H PIETER Administration Ondansetron HCl 4 mg 01/25/25 04:57 Ondansetron Inj 4 Mg/2 Ml Vial IV PUSH Q4H PRN Nausea Ondansetron HCl 4 mg 01/25/25 13:39 Ondansetron Inj 4 Mg/2 Ml Vial IV PUSH ONCE PRN Nausea Pantoprazole Sodium 40 mg 01/25/25 09:00 01/26/25 08:11 Pantoprazole Sodium Iv 40 Mg Vial IV PUSH 40 mg QAM PIETER Administration Sodium Chloride 20 ml 01/25/25 06:42 Central Line Flush IV PUSH PRN PRN after blood draws Radiology Results: ITS Impressions Head CT 01/25/25 08:55 Impression: No intracranial hemorrhage, mass, or acute infarct. Atrophy and chronic white matter changes, as above. Chest/Abdomen/Pelvis CT 01/25/25 08:58 Impression: 14 mm proximal right ureteral stone with mild right hydronephrosis. Additional small bilateral nonobstructing renal stones. Cholelithiasis. Small fat-containing umbilical hernia. Chest X-Ray 01/25/25 09:27 IMPRESSION: 1.Interstitial and airspace opacities scattered throughout both lungs. Differential includes but is not limited to edema or pneumonia. Follow-up is recommended. 2. Blunting of the left costophrenic angle likely due to a small left-sided pleural effusion. Recommend follow-up to resolution. Labs Labs: Laboratory Results - last 24 hr 01/25/25 01/26/25 01/26/25 22:46 01:23 05:06 WBC 23.1 H RBC 4.66 Hgb 13.0 L Hct 41.0 L MCV 88.0 MCH 27.9 MCHC 31.7 L RDW 14.2 Plt Count 90 L MPV 12.1 H % Immature Plt Fraction 9.8 Sodium 138 139 Potassium 4.2 4.1 Chloride 109 H 110 H Carbon Dioxide 19 L 18 L Anion Gap 10 11 BUN 46 H D 51 H Creatinine 4.54 H 5.29 H Estim Creat Clear Calc 19 Estimated GFR 13 L 11 L Glucose 120 H 116 H Lactic Acid 1.7 Calcium 7.6 L 7.9 L Phosphorus 4.4 Magnesium 2.2 Total Bilirubin 2.5 H AST 37 ALT 21 Alkaline Phosphatase 136 H Total Protein 6.0 L Albumin 3.1 L Random Vancomycin 10.5 01/26/25 10:57 WBC RBC Hgb Hct MCV MCH MCHC RDW Plt Count MPV % Immature Plt Fraction Sodium Potassium Chloride Carbon Dioxide Anion Gap BUN Creatinine Estim Creat Clear Calc Estimated GFR Glucose Lactic Acid 1.4 Calcium Phosphorus Magnesium Total Bilirubin AST ALT Alkaline Phosphatase Total Protein Albumin Random Vancomycin
[2025-01-26 14:23] LABS: Urine Eos QC 2nd Tech Confirmed
[2025-01-26 17:52] LABS: Urea Random Urine 230 MG/DL
[2025-01-26 18:00] LABS: Total Protein Urine Random 369 mg/dL
[2025-01-26 19:16] LABS: Total Protein Urine Random 369 mg/dL; Ur Ttl Prot Creatinine Ratio 8.35 mg/mg (0-0.20)
--- NOTE | 2025-01-26 23:08 | PC.NURSE ---
This patient, Tashi Esposito, was transferred to [[facility] Room 202] on 01/26/25 at 2308. Personal belongings sent with patient. Report given to [ Laura Phelps RN ]. Appropriate documentation sent with patient. Call placed to patient's sister/HARRY Lynn and she was made aware of room change.
[2025-01-27] VITALS (19 sets, daily range): BP systolic 102–143; BP diastolic 51–87; PULSE 77–99; RESP 17–24; TEMP 36.5–37.1; O2SAT 90–95
[2025-01-27] LABS: Albumin Level 2.9 g/dL (3.5-5.1); Anion Gap 10 mmol/L (4-12); Blood Urea Nitrogen 62 mg/dL (9-20); Calcium 8.1 mg/dL (8.4-10.2); Carbon Dioxide 20 mmol/L (22-30); Chloride 105 mmol/L (98-107); Estimated CRCL calculation 15 ml/min; Estimated Glomerular Filt Rate 9; Glucose 117 mg/dL (65-110); Potassium 3.6 mmol/L (3.4-5.0); Sodium 135 mmol/L (137-145)
[2025-01-27 06:45] LABS: Hematocrit 37.1 % (42.0-52.0); Hemoglobin 12.2 g/dL (14.0-18.0); Mean Corpuscular HGB Conc 32.9 g/dl (32-36); Mean Corpuscular Hemoglobin 27.9 pg (26-34); Mean Corpuscular Volume 84.9 fl (80-100); Platelet Count Result 100 k/mm3 (150-375); Red Blood Count 4.37 M/mm3 (4.6-6.20); White Blood Count 19.2 K/mm3 (4.5-10.0)
[2025-01-27 07:09] LABS: Alanine Aminotransferase 44 U/L (6-50); Albumin Level 2.8 g/dL (3.5-5.1); Alkaline Phosphatase 225 U/L (38-126); Anion Gap 9 mmol/L (4-12); Aspartate Amino Transferase 76 U/L (17-59); Bilirubin,Total 1.1 mg/dL (0.2-1.3); Blood Urea Nitrogen 65 mg/dL (9-20); Calcium 8.2 mg/dL (8.4-10.2); Carbon Dioxide 22 mmol/L (22-30); Chloride 106 mmol/L (98-107); Creatine Kinase 67 U/L (55-170); Estimated CRCL calculation 13 ml/min; Estimated Glomerular Filt Rate 8; Glucose 108 mg/dL (65-110); Magnesium 2.5 mg/dL (1.6-2.3); Potassium 3.6 mmol/L (3.4-5.0); Sodium 137 mmol/L (137-145); Total Protein 5.8 g/dL (6.3-8.2)
[2025-01-27] MEDS: PANTOPRAZOLE SODIUM IV 40 MG VIAL IV PUSH (08:48)
[2025-01-27] MEDS: ENOXAPARIN 30 MG/0.3 ML SYRINGE SUB-Q (08:48)
[2025-01-27] MEDS: MEROPENEM 500 MG in SODIUM CHLORIDE 0.9% IV 100 ML 200 ML IVPB ×2 (08:49→20:37)
[2025-01-27] MEDS: ROSUVASTATIN 20 MG TABLET 40 MG PO (11:37)
[2025-01-27] MEDS: METOPROLOL SUCCINATE EXT REL 25 MG TABCR PO (11:37)
[2025-01-27] MEDS: ASPIRIN 81 MG CHEWABLE TABLET PO (11:38)
[2025-01-27] MEDS: FUROSEMIDE 20 MG TABLET PO (11:38)
[2025-01-27] MEDS: ISOSORBIDE MONONITRATE 15 MG TAB.ER.24H PO (11:38)
[2025-01-27] MEDS: oxyBUTYnin CHLORIDE XL 5 MG TAB.ER.24 10 MG PO (11:38)
[2025-01-27 11:54] LABS: Hepatitis B Surface Anti Res Negative
--- NOTE | 2025-01-27 13:46 | P.PNNP_ITS ---
Progress Note: A&P Assessment and Plan (1) Acute kidney injury: Code(s): N17.9 - Acute kidney failure, unspecified Status: Acute Assessment and Plan: * continues to decline/worsen * as noted on admission * normal creatinine by last admission here in July 2024 * suspect due to several issues: * hypotension/hemodynamic instability * infection/sepsis (UTI + bacteremia) * obstruction (from nephrolithiasis) * prerenal factors (?) * other (?) * making better urine output * ongoing trial of IVFs * evaluation to date: * admission CT imaging noted * renal ultrasound without obstruction * urine electrolytes non-prerenal * urine eosinophils negative * CPK normal * + proteinuria noted * remains at risk for [employer]/dialysis * follow trend of repeat labs and UOP (2) Septic shock: Code(s): A41.9 - Sepsis, unspecified organism; R65.21 - Severe sepsis with septic shock Status: Acute Assessment and Plan: * resolving * suspect due to UTI complicated by right ureteral stone and hydronephrosis * however, positive blood cultures noted as well... * weaned off levophed gtt on 01/25 * remains on IVFs * follow culture data * urine culture negative * blood cultures noted (see #3) * on antibiotics * follow trend of hemodynamics (3) Bacteremia: Code(s): R78.81 - Bacteremia Status: Acute Assessment and Plan: * as noted by blood cultures: * on 01/24 - Gram negative bacilli * on 01/25 - Gram negative bacilli * on antibiotics * follow repeat cultures (4) Metabolic acidosis: Code(s): E87.20 - Acidosis, unspecified Status: Acute Assessment and Plan: * due to RAJESH/ARF along with lactic acidosis * lactic acid has normalized * on bicarb IVFs as this time * follow CO2 levels (5) Urinary tract infection: Qualifiers: Hematuria presence: with hematuria Urinary tract infection type: acute cystitis Qualified Code(s): N30.01 - Acute cystitis with hematuria Code(s): N39.0 - Urinary tract infection, site not specified Status: Acute Assessment and Plan: * suspected based on UA on admission * follow urine culture results - negative to date * on antibiotics (6) Anemia: Code(s): D64.9 - Anemia, unspecified Status: Acute Assessment and Plan: * due to RAJESH with a component of dilution from IVFs * follow trend of H/H (7) Nephrolithiasis: Code(s): N20.0 - Calculus of kidney Status: Acute Assessment and Plan: * as noted on admission imaging complicated by hydronephrosis * Urology following * s/p cystoscopy with right ureteral stent placement * further intervention with regard to right kidney stone to be done at a later date.... (8) Encephalopathy: Code(s): G93.40 - Encephalopathy, unspecified Status: Acute Assessment and Plan: * per family, has some short memory issues * likely complicated by sepsis/infection and know history of leukodystrophy * head CT negative * normal TSH and ammonia * follow mentation Will continue to follow. L Subjective Date/time seen: 01/27/25 13:46 Interval history: Follow-up for acute kidney injury/acute renal failure. Renal function/creatinine continues to worsen but making reasonable urine output and no critical electrolytes noted; no apparent distress voiced at the time of my visit -- he mentation seems stable as well; afebrile and hemodynamically stable; no other issues/events overnight or earlier this morning. Exam 2 Narrative: General: WD/WN male in NAD Heart: normal S1 and S2; no rub Lungs: clear anteriorly; decreased at bases Abdomen: soft, nontender, nondistended, positive bowel sounds Extremities: no cyanosis or clubbing; no edema Skin: warm and dry Objective Data Vital Signs Vital Signs: Vital Signs Temp Pulse Resp BP Pulse Ox O2 Del Method 01/27/25 12:00 98.3 F 93 18 130/83 93 01/27/25 11:37 89 01/27/25 08:30 93 01/27/25 08:00 98.7 F 90 18 143/87 H 93 01/27/25 07:58 91 Room Air 01/27/25 06:00 85 01/27/25 04:16 98.6 F 99 20 136/78 90 01/27/25 04:00 90 01/27/25 03:41 Room Air 01/27/25 02:00 95 01/27/25 00:04 97.7 F 90 22 H 135/77 93 01/27/25 00:00 94 01/26/25 22:00 96 01/26/25 20:00 99 01/26/25 20:00 Room Air 01/26/25 20:00 98.1 F 200 H 24 H 133/89 94 Intake/Output Intake/Output: Intake & Output 01/24/25 01/25/25 01/26/25 01/27/25 23:59 23:59 23:59 23:59 Intake Total 4197.4 2740 900 Output Total 150 825 400 Balance 4047.4 1915 500 Meds/Results Medications: Active Medications Generic Name Dose Route Start Last Admin Trade Name Freq PRN Reason Stop Dose Admin Acetaminophen 650 mg 01/24/25 23:29 01/25/25 21:54 Acetaminophen 650 Mg Suppository RECTAL 650 mg Q6H PRN Administration Mild Pain (1-3) or Fever Acetaminophen 650 mg 01/25/25 04:57 01/25/25 15:55 Acetaminophen 325 Mg Tablet PO 650 mg Q4H PRN Administration Mild Pain (1-3) or Fever Aspirin 81 mg 01/27/25 09:00 01/27/25 11:38 Aspirin 81 Mg Chewable Tablet PO 81 mg DAILY PIETER Administration Baclofen 5 mg 01/27/25 10:20 Baclofen 5 Mg Tablet PO BID PRN Muscle Spasm Cyanocobalamin 1,000 mcg 02/26/25 09:00 Cyanocobalamin Inj 1,000 Mcg/Ml Vial SUB-Q MONTHLY PIETER Enoxaparin Sodium 30 mg 01/25/25 09:00 01/27/25 08:48 Enoxaparin 30 Mg/0.3 Ml Syringe SUB-Q 30 mg DAILY PIETER Administration Fentanyl Citrate 25 mcg 01/25/25 13:39 Fentanyl Citrate Inj (*Crx) 100 Mcg/2 Ml Vial IV PUSH Q2M PRN Pain Furosemide 20 mg 01/27/25 09:00 01/27/25 11:38 Furosemide 20 Mg Tablet PO 20 mg QAM PIETER Administration Meropenem 500 mg/ Sodium 100 mls @ 200 mls/hr 01/25/25 21:00 01/27/25 10:15 Chloride IVPB Infused Q12H PIETER Infusion Isosorbide Mononitrate 15 mg 01/27/25 09:00 01/27/25 11:38 Isosorbide Mononitrate 15 Mg Tab.Er.24h PO 15 mg DAILY IPETER Administration Metoprolol Succinate 25 mg 01/27/25 09:00 01/27/25 11:37 Metoprolol Succinate Ext Rel 25 Mg Tabcr PO 25 mg DAILY PIETER Administration Miscellaneous Information 1 each 01/27/25 00:01 Cyanocobalamin Monthly- What Day Due? XX 02/26/25 00:00 CLARIFY PIETER Nonformulary 1 each 01/27/25 10:24 Nutritional XX 01/28/25 10:23 Supplement-Biotin PRN PRN Tablet PROTOCOL Ondansetron HCl 4 mg 01/25/25 04:57 Ondansetron Inj 4 Mg/2 Ml Vial IV PUSH Q4H PRN Nausea Ondansetron HCl 4 mg 01/25/25 13:39 Ondansetron Inj 4 Mg/2 Ml Vial IV PUSH ONCE PRN Nausea Oxybutynin Chloride 10 mg 01/27/25 09:00 01/27/25 11:38 Oxybutynin Chloride Xl 5 Mg Tab.Er.24 PO 10 mg DAILY PIETER Administration Pantoprazole Sodium 40 mg 01/28/25 09:00 Pantoprazole 40 Mg Tablet PO QAM PIETER Rosuvastatin Calcium 40 mg 01/27/25 09:00 01/27/25 11:37 Rosuvastatin 20 Mg Tablet PO 40 mg DAILY PIETER Administration Sodium Chloride 20 ml 01/25/25 06:42 Central Line Flush IV PUSH PRN PRN after blood draws Radiology Results: ITS Impressions Head CT 01/25/25 08:55 Impression: No intracranial hemorrhage, mass, or acute infarct. Atrophy and chronic white matter changes, as above. Chest/Abdomen/Pelvis CT 01/25/25 08:58 Impression: 14 mm proximal right ureteral stone with mild right hydronephrosis. Additional small bilateral nonobstructing renal stones. Cholelithiasis. Small fat-containing umbilical hernia. Chest X-Ray 01/25/25 09:27 IMPRESSION: 1.Interstitial and airspace opacities scattered throughout both lungs. Differential includes but is not limited to edema or pneumonia. Follow-up is recommended. 2. Blunting of the left costophrenic angle likely due to a small left-sided pleural effusion. Recommend follow-up to resolution. Renal Ultrasound 01/26/25 21:46 Impression: 1: Unremarkable renal ultrasound. No stones, masses or hydronephrosis. Abdomen X-Ray 01/27/25 09:54 IMPRESSION: Right double-J ureteral stent in place. Labs Labs: Laboratory Tests 01/27/25 06:31 01/27/25 06:31 Calcium 8.2 L Phosphorus 5.0 H Magnesium 2.5 H Total Bilirubin 1.1 AST 76 H ALT 44 Alkaline Phosphatase 225 H Total Creatine Kinase 67 Total Protein 5.8 L Albumin 2.8 L Microbiology 01/25/25 00:39 Blood Blood Culture - Preliminary Gram negative bacilli isolated Gram negative bacilli isolated#2 01/24/25 23:39 Blood Blood Culture - Preliminary Gram negative bacilli isolated Gram negative bacilli isolated#2
--- NOTE | 2025-01-27 14:17 | PM.IMPN ---
Progress Note: A&P Assessment and Plan (1) Septic shock: Code(s): A41.9 - Sepsis, unspecified organism; R65.21 - Severe sepsis with septic shock Status: Acute (2) Abnormal urinalysis: Code(s): R82.90 - Unspecified abnormal findings in urine Status: Acute (3) Acute kidney injury: Code(s): N17.9 - Acute kidney failure, unspecified Status: Acute (4) Leukodystrophy: Onset Date: ~06/2021 Code(s): G31.80 - Leukodystrophy, unspecified Status: Acute (5) Overactive bladder: Code(s): N32.81 - Overactive bladder Status: Acute (6) Lactic acidosis: Code(s): E87.20 - Acidosis, unspecified Status: Acute (7) Chronic constipation: Code(s): K59.09 - Other constipation Status: Acute Plan Patient has septic shock due to UTI. Awaiting stat read interpretation on CT scan to determine if patient may have obstructing stone. Central line placed by ER provider. Continue empiric antibiotic therapy with cefepime and vancomycin. The patient received 30 mL/kilos bolus in the ER. Despite adequate fluid resuscitation pressors have been indicated to maintain maps 65 in systolic blood pressure greater than 90. Will continue monitor strict I&O's and daily weights. Will await blood culture and urine culture results. Awaiting results of CT imaging suspicious for ureteral stone the right side on my review but ER provider did not mention stone on stat read interpretation and I cannot see the stat read imaging report at the time of my chart review. Patient will need Urology consult if obstructing stone confirmed. Will place patient on GI prophylaxis with Protonix. Patient does have lactic acidosis due to above medical issues. Patient has been admitted to the ICU. Or [facility]ist Registered Nurse has been consulted. The patient's care was discussed in transitioned at the end of my shift. patient presented with fever, UTI and is found to kidney stone, was seen by the urologist and was taken to the OR and had cystoscopy, right retrograde, right stent placement 4.8 [place] contour, complex Peralta catheter placement 16 [place], patient urine culture is pending, blood culture is growing, Gram negative bacilli in both bottles, patient is being treated with meropenem, patient clinical symptoms are improving, will monitor. 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 Nursing staff checked on the patient at 22:00 and noticed that the patient was febrile. EMS reported the patient was hypotensive and patient received a normal saline bolus in route to the hospital. His T-max was a 103.1? axillary. On initial arrival to the ER the patient was breathing 40-50 times a minute was tachycardic and hypotensive. He received 30 mL/kilos fluid bolus with initial improvement in blood pressures the low 100s systolic. The patient was awake on presentation but would only say yes or no. His responses or delayed and accuracy of his responses was uncertain. The patient denied having any pain. He was incontinent of urine on arrival to the ER and was straight catheterization his urine was slightly blood tinged. His UA demonstrated 3+ protein 3+ blood 2+ esterase greater than 100 RBCs greater than 100 wbc's and many squamous cells with greater than 20 casts. He did not have any reproducible pain to palpation of the abdomen and was tachypneic he but no abnormal lung sounds. Chest x-ray demonstrated small lung volumes but no acute process. The patient was started on empiric antibiotic therapy with cefepime and vancomycin. Given the patient was still hypotensive after 30 mL/kilos fluid bolus an additional L of fluids was ordered and a central line was placed by ER provider. patient presented with fever, UTI and is found to kidney stone, was seen by the urologist and was taken to the OR and had cystoscopy, right retrograde, right stent placement 4.8 [place] contour, complex Peral[place] catheter placement 16 [place], patient urine culture is pending, blood culture is growing, Gram negative bacilli in both bottles, patient is being treated with meropenem, patient clinical symptoms are improving, will monitor. Review of Systems Review of Systems: Unobtainable due to patient's mentation. All systems reviewed & are unremarkable except as noted in HPI and below (HPI) Exam Narrative: Patient is comfortable, NAD HEENT: eyes are clear and none icteric LUNGS:CTA HEART: RR S1S2 ABD: BS+, Soft and nontender Lower extremities: no edema SKIN: nonjaundiced Neuro: grossly intact. Objective Data Vital Signs Vital Signs: Vital Signs - 24 hr 01/26/25 16:00 01/26/25 16:00 01/26/25 16:00 Temperature 37.5 C Pulse Rate 101 H 101 H 100 Respiratory Rate 20 20 Blood Pressure 135/90 Pulse Oximetry 93 93 Oxygen Delivery Room Air 01/26/25 18:00 01/26/25 20:00 01/26/25 20:00 Temperature 36.7 C Pulse Rate 105 H 200 H Respiratory Rate 24 H Blood Pressure 133/89 Pulse Oximetry 94 Oxygen Delivery Room Air 01/26/25 20:00 01/26/25 22:00 01/27/25 00:00 Temperature Pulse Rate 99 96 94 Respiratory Rate Blood Pressure Pulse Oximetry Oxygen Delivery 01/27/25 00:04 01/27/25 02:00 01/27/25 03:41 Temperature 36.5 C Pulse Rate 90 95 Respiratory Rate 22 H Blood Pressure 135/77 Pulse Oximetry 93 Oxygen Delivery Room Air 01/27/25 04:00 01/27/25 04:16 01/27/25 06:00 Temperature 37.0 C Pulse Rate 90 99 85 Respiratory Rate 20 Blood Pressure 136/78 Pulse Oximetry 90 Oxygen Delivery 01/27/25 07:58 01/27/25 08:00 01/27/25 11:37 Temperature 37.1 C Pulse Rate 90 89 Respiratory Rate 18 Blood Pressure 143/87 H Pulse Oximetry 91 93 Oxygen Delivery Room Air 01/27/25 12:00 Temperature 36.8 C Pulse Rate 93 Respiratory Rate 18 Blood Pressure 130/83 Pulse Oximetry 93 Oxygen Delivery Intake/Output Intake/Output: Intake & Output 01/24/25 01/25/25 01/26/25 01/27/25 23:59 23:59 23:59 23:59 Intake Total 4197.4 2740 700 Output Total 150 825 400 Balance 4047.4 1915 300 Meds/Results Medications: Active Medications Generic Name Dose Route Start Last Admin Trade Name Freq PRN Reason Stop Dose Admin Acetaminophen 650 mg 01/24/25 23:29 01/25/25 21:54 Acetaminophen 650 Mg Suppository RECTAL 650 mg Q6H PRN Administration Mild Pain (1-3) or Fever Acetaminophen 650 mg 01/25/25 04:57 01/25/25 15:55 Acetaminophen 325 Mg Tablet PO 650 mg Q4H PRN Administration Mild Pain (1-3) or Fever Aspirin 81 mg 01/27/25 09:00 01/27/25 11:38 Aspirin 81 Mg Chewable Tablet PO 81 mg DAILY PIETER Administration Baclofen 5 mg 01/27/25 10:20 Baclofen 5 Mg Tablet PO BID PRN Muscle Spasm Cyanocobalamin 1,000 mcg 02/26/25 09:00 Cyanocobalamin Inj 1,000 Mcg/Ml Vial SUB-Q MONTHLY [facility] Enoxaparin Sodium 30 mg 01/25/25 09:00 01/27/25 08:48 Enoxaparin 30 Mg/0.3 Ml Syringe SUB-Q 30 mg DAILY [facility] Administration Fentanyl Citrate 25 mcg 01/25/25 13:39 Fentanyl Citrate Inj (*Crx) 100 Mcg/2 Ml Vial IV PUSH Q2M PRN Pain Furosemide 20 mg 01/27/25 09:00 01/27/25 11:38 Furosemide 20 Mg Tablet PO 20 mg QAM PIETER Administration Meropenem 500 mg/ Sodium 100 mls @ 200 mls/hr 01/25/25 21:00 01/27/25 10:15 Chloride IVPB Infused Q12H [facility] Infusion Isosorbide Mononitrate 15 mg 01/27/25 09:00 01/27/25 11:38 Isosorbide Mononitrate 15 Mg Tab.Er.24h PO 15 mg DAILY PIETER Administration Metoprolol Succinate 25 mg 01/27/25 09:00 01/27/25 11:37 Metoprolol Succinate Ext Rel 25 Mg Tabcr PO 25 mg DAILY PIETER Administration Miscellaneous Information 1 each 01/27/25 00:01 Cyanocobalamin Monthly- What Day Due? XX 02/26/25 00:00 CLARIFY PIETER Nonformulary 1 each 01/27/25 10:24 Nutritional XX 01/28/25 10:23 Supplement-Biotin PRN PRN Tablet PROTOCOL Ondansetron HCl 4 mg 01/25/25 04:57 Ondansetron Inj 4 Mg/2 Ml Vial IV PUSH Q4H PRN Nausea Ondansetron HCl 4 mg 01/25/25 13:39 Ondansetron Inj 4 Mg/2 Ml Vial IV PUSH ONCE PRN Nausea Oxybutynin Chloride 10 mg 01/27/25 09:00 01/27/25 11:38 Oxybutynin Chloride Xl 5 Mg Tab.Er.24 PO 10 mg DAILY PIETER Administration Pantoprazole Sodium 40 mg 01/28/25 09:00 Pantoprazole 40 Mg Tablet PO QAM PIETER Rosuvastatin Calcium 40 mg 01/27/25 09:00 01/27/25 11:37 Rosuvastatin 20 Mg Tablet PO 40 mg DAILY PIETER Administration Sodium Chloride 20 ml 01/25/25 06:42 Central Line Flush IV PUSH PRN PRN after blood draws Radiology Results: ITS Impressions Head CT 01/25/25 08:55 Impression: No intracranial hemorrhage, mass, or acute infarct. Atrophy and chronic white matter changes, as above. Chest/Abdomen/Pelvis CT 01/25/25 08:58 Impression: 14 mm proximal right ureteral stone with mild right hydronephrosis. Additional small bilateral nonobstructing renal stones. Cholelithiasis. Small fat-containing umbilical hernia. Chest X-Ray 01/25/25 09:27 IMPRESSION: 1.Interstitial and airspace opacities scattered throughout both lungs. Differential includes but is not limited to edema or pneumonia. Follow-up is recommended. 2. Blunting of the left costophrenic angle likely due to a small left-sided pleural effusion. Recommend follow-up to resolution. Renal Ultrasound 01/26/25 21:46 Impression: 1: Unremarkable renal ultrasound. No stones, masses or hydronephrosis. Abdomen X-Ray 01/27/25 09:54 IMPRESSION: Right double-J ureteral stent in place. Labs Labs: Laboratory Results - last 24 hr 01/26/25 01/26/25 01/26/25 13:09 13:09 13:09 WBC RBC Hgb Hct MCV MCH MCHC RDW Plt Count MPV Sodium Potassium Chloride Carbon Dioxide Anion Gap BUN Creatinine Estim Creat Clear Calc Estimated GFR Glucose Lactic Acid Calcium Phosphorus Magnesium Total Bilirubin AST ALT Alkaline Phosphatase Total Creatine Kinase Total Protein Albumin Urine Eosinophils None seen U Random Total Protein 369 369 Ur Random Sodium 88 Ur Random Urea 230 Urine Creatinine 44.2 Cancelled Protein/Creat Ratio 2 8.35 H Random Vancomycin Hep Bs Antibody Hep B Core Total Ab 01/26/25 01/27/25 23:45 06:31 WBC 19.2 H RBC 4.37 L Hgb 12.2 L Hct 37.1 L MCV 84.9 MCH 27.9 MCHC 32.9 RDW 14.0 Plt Count 100 L MPV 12.5 H Sodium 135 L 137 Potassium 3.6 3.6 Chloride 105 106 Carbon Dioxide 20 L 22 Anion Gap 10 9 BUN 62 H D 65 H Creatinine 6.35 H 6.80 H Estim Creat Clear Calc 15 13 Estimated GFR 9 L 8 L Glucose 117 H 108 Lactic Acid 0.9 Calcium 8.1 L 8.2 L Phosphorus 4.8 H 5.0 H Magnesium 2.5 H Total Bilirubin 1.1 AST 76 H ALT 44 Alkaline Phosphatase 225 H Total Creatine Kinase 67 Total Protein 5.8 L Albumin 2.9 L 2.8 L Urine Eosinophils U Random Total Protein Ur Random Sodium Ur Random Urea Urine Creatinine Protein/Creat Ratio 2 Random Vancomycin 16.2 Hep Bs Antibody Negative Hep B Core Total Ab Cancelled Quality VTE Prophylaxis VTE prophylaxis: pharmacologic ordered
[2025-01-27 20:02] LABS: Albumin Level 2.7 g/dL (3.5-5.1); Anion Gap 9 mmol/L (4-12); Blood Urea Nitrogen 72 mg/dL (9-20); Calcium 8.2 mg/dL (8.4-10.2); Carbon Dioxide 21 mmol/L (22-30); Chloride 105 mmol/L (98-107); Estimated CRCL calculation 13 ml/min; Estimated Glomerular Filt Rate 8; Glucose 153 mg/dL (65-110); Potassium 3.6 mmol/L (3.4-5.0); Sodium 135 mmol/L (137-145)
[2025-01-27 20:35] LABS: Hepatitis B Surface Antigen Negative (Negative)
[2025-01-28] VITALS (18 sets, daily range): BP systolic 121–134; BP diastolic 73–81; PULSE 60–86; RESP 17–24; TEMP 36.4–37.1; O2SAT 91–97
[2025-01-28 05:28] LABS: Hematocrit 35.4 % (42.0-52.0); Hemoglobin 11.5 g/dL (14.0-18.0); Mean Corpuscular HGB Conc 32.5 g/dl (32-36); Mean Corpuscular Hemoglobin 27.7 pg (26-34); Mean Corpuscular Volume 85.3 fl (80-100); Platelet Count Result 102 k/mm3 (150-375); Red Blood Count 4.15 M/mm3 (4.6-6.20); White Blood Count 14.1 K/mm3 (4.5-10.0)
[2025-01-28 05:42] LABS: Alanine Aminotransferase 43 U/L (6-50); Albumin Level 2.8 g/dL (3.5-5.1); Alkaline Phosphatase 181 U/L (38-126); Anion Gap 10 mmol/L (4-12); Aspartate Amino Transferase 64 U/L (17-59); Bilirubin,Total 0.9 mg/dL (0.2-1.3); Blood Urea Nitrogen 75 mg/dL (9-20); Calcium 8.3 mg/dL (8.4-10.2); Carbon Dioxide 21 mmol/L (22-30); Chloride 107 mmol/L (98-107); Estimated CRCL calculation 12 ml/min; Estimated Glomerular Filt Rate 7; Glucose 108 mg/dL (65-110); Magnesium 2.7 mg/dL (1.6-2.3); Potassium 3.6 mmol/L (3.4-5.0); Sodium 138 mmol/L (137-145); Total Protein 5.7 g/dL (6.3-8.2)
[2025-01-28 07:09] LABS: Hep B Core Ab, Total Negative (Negative)
[2025-01-28] MEDS: oxyBUTYnin CHLORIDE XL 5 MG TAB.ER.24 10 MG PO (09:01)
[2025-01-28] MEDS: ENOXAPARIN 30 MG/0.3 ML SYRINGE SUB-Q (09:01)
[2025-01-28] MEDS: ROSUVASTATIN 20 MG TABLET 40 MG PO (09:03)
[2025-01-28] MEDS: METOPROLOL SUCCINATE EXT REL 25 MG TABCR PO (09:05)
[2025-01-28] MEDS: ASPIRIN 81 MG CHEWABLE TABLET PO (09:05)
[2025-01-28] MEDS: ISOSORBIDE MONONITRATE 15 MG TAB.ER.24H PO (09:06)
[2025-01-28] MEDS: FUROSEMIDE 20 MG TABLET PO (09:06)
[2025-01-28] MEDS: PANTOPRAZOLE 40 MG TABLET PO (09:07)
[2025-01-28] MEDS: MEROPENEM 500 MG in SODIUM CHLORIDE 0.9% IV 100 ML 200 ML IVPB (09:10)
--- NOTE | 2025-01-28 13:23 | P.PNNP_ITS ---
Progress Note: A&P Assessment and Plan (1) Acute kidney injury: Code(s): N17.9 - Acute kidney failure, unspecified Status: Acute Assessment and Plan: * continues to decline/worsen * as noted on admission * normal creatinine by last admission here in July 2024 * suspect due to several issues: * hypotension/hemodynamic instability * infection/sepsis (UTI + bacteremia) * obstruction (from nephrolithiasis) * prerenal factors (?) * other (?) * making better urine output * ongoing trial of IVFs * evaluation to date: * admission CT imaging noted * renal ultrasound without obstruction * urine electrolytes non-prerenal * urine eosinophils negative * CPK normal * + proteinuria noted * remains at risk for [employer]/dialysis * follow trend of repeat labs and UOP (2) Septic shock: Code(s): A41.9 - Sepsis, unspecified organism; R65.21 - Severe sepsis with septic shock Status: Acute Assessment and Plan: * resolving * suspect due to UTI complicated by right ureteral stone and hydronephrosis * however, positive blood cultures noted as well... * weaned off levophed gtt on 01/25 * remains on IVFs * follow culture data * urine culture negative * blood cultures noted (see #3) * on antibiotics * follow trend of hemodynamics (3) Bacteremia: Code(s): R78.81 - Bacteremia Status: Acute Assessment and Plan: * as noted by blood cultures: * on 01/24 - Proteus mirabilis * on 01/25 - Proteus mirabilis * on antibiotics * follow repeat cultures (4) Metabolic acidosis: Code(s): E87.20 - Acidosis, unspecified Status: Acute Assessment and Plan: * due to RAJESH/ARF along with lactic acidosis * lactic acid has normalized * on bicarb IVFs as this time * follow CO2 levels (5) Urinary tract infection: Qualifiers: Hematuria presence: with hematuria Urinary tract infection type: acute cystitis Qualified Code(s): N30.01 - Acute cystitis with hematuria Code(s): N39.0 - Urinary tract infection, site not specified Status: Acute Assessment and Plan: * suspected based on UA on admission * follow urine culture results - negative to date * on antibiotics (6) Anemia: Code(s): D64.9 - Anemia, unspecified Status: Acute Assessment and Plan: * due to RAJESH with a component of dilution from IVFs * follow trend of H/H (7) Nephrolithiasis: Code(s): N20.0 - Calculus of kidney Status: Acute Assessment and Plan: * as noted on admission imaging complicated by hydronephrosis * Urology following * s/p cystoscopy with right ureteral stent placement * further intervention with regard to right kidney stone to be done at a later date.... (8) Encephalopathy: Code(s): G93.40 - Encephalopathy, unspecified Status: Acute Assessment and Plan: * per family, has some short memory issues * likely complicated by sepsis/infection and know history of leukodystrophy * head CT negative * normal TSH and ammonia * follow mentation Will continue to follow. L Subjective Date/time seen: 01/28/25 13:23 Interval history: Follow-up for acute kidney injury/acute renal failure. Continue to make reasonable urine output despite ongoing deterioration/worsening of renal function/creatinine; no critical electrolytes noted and volume status seems stable; sister at bedside and we discussed the situation. Exam 2 Narrative: General: WD/WN male in NAD Heart: normal S1 and S2; no rub Lungs: clear anteriorly; decreased at bases Abdomen: soft, nontender, nondistended, positive bowel sounds Extremities: no cyanosis or clubbing; no edema Skin: warm and intact Objective Data Vital Signs Vital Signs: Vital Signs Temp Pulse Resp BP Pulse Ox O2 Del Method FiO2 01/28/25 12:00 73 Room Air 01/28/25 12:00 98 F 65 22 H 124/75 95 01/28/25 10:00 65 01/28/25 09:05 64 01/28/25 08:00 67 01/28/25 08:00 98 F 72 24 H 133/81 94 01/28/25 08:00 Room Air 01/28/25 05:57 80 01/28/25 04:00 75 01/28/25 03:58 98.7 F 76 18 121/73 91 01/28/25 03:58 76 17 92 Room Air 01/28/25 02:00 81 01/28/25 00:00 86 01/27/25 23:32 79 17 92 Room Air 01/27/25 23:26 98.6 F 77 17 121/72 92 01/27/25 22:00 85 01/27/25 20:54 80 01/27/25 20:22 78 20 90 Room Air 21 01/27/25 20:00 78 18 95 Room Air 01/27/25 19:24 98.7 F 87 18 132/82 95 Intake/Output Intake/Output: Intake & Output 01/25/25 01/26/25 01/27/25 01/28/25 23:59 23:59 23:59 23:59 Intake Total 4197.4 2740 1420 240 Output Total 150 825 900 600 Balance 4047.4 1915 520 -360 Meds/Results Medications: Active Medications Generic Name Dose Route Start Last Admin Trade Name Freq PRN Reason Stop Dose Admin Acetaminophen 650 mg 01/24/25 23:29 01/25/25 21:54 Acetaminophen 650 Mg Suppository RECTAL 650 mg Q6H PRN Administration Mild Pain (1-3) or Fever Acetaminophen 650 mg 01/25/25 04:57 01/25/25 15:55 Acetaminophen 325 Mg Tablet PO 650 mg Q4H PRN Administration Mild Pain (1-3) or Fever Aspirin 81 mg 01/27/25 09:00 01/28/25 09:05 Aspirin 81 Mg Chewable Tablet PO 81 mg DAILY [facility]ETER Administration Baclofen 5 mg 01/27/25 10:20 Baclofen 5 Mg Tablet PO BID PRN Muscle Spasm Cyanocobalamin 1,000 mcg 01/29/25 09:00 Cyanocobalamin Inj 1,000 Mcg/Ml Vial SUB-Q MONTHLY [facility] Enoxaparin Sodium 30 mg 01/25/25 09:00 01/28/25 09:01 Enoxaparin 30 Mg/0.3 Ml Syringe SUB-Q 30 mg DAILY [facility]ER Administration Furosemide 20 mg 01/27/25 09:00 01/28/25 09:06 Furosemide 20 Mg Tablet PO 20 mg QAM PIETER Administration Ceftriaxone Sodium 2 gm/ 100 mls @ 200 mls/hr 01/28/25 21:00 Sodium Chloride IVPB Q24H [facility]ETER Isosorbide Mononitrate 15 mg 01/27/25 09:00 01/28/25 09:06 Isosorbide Mononitrate 15 Mg Tab.Er.24h PO 15 mg DAILY [facility]ETER Administration Metoprolol Succinate 25 mg 01/27/25 09:00 01/28/25 09:05 Metoprolol Succinate Ext Rel 25 Mg Tabcr PO 25 mg DAILY [facility]ER Administration Ondansetron HCl 4 mg 01/25/25 04:57 Ondansetron Inj 4 Mg/2 Ml Vial IV PUSH Q4H PRN Nausea Oxybutynin Chloride 10 mg 01/27/25 09:00 01/28/25 09:01 Oxybutynin Chloride Xl 5 Mg Tab.Er.24 PO 10 mg DAILY PIETER Administration Pantoprazole Sodium 40 mg 01/28/25 09:00 01/28/25 09:07 Pantoprazole 40 Mg Tablet PO 40 mg QAM PIETER Administration Rosuvastatin Calcium 40 mg 01/27/25 09:00 01/28/25 09:03 Rosuvastatin 20 Mg Tablet PO 40 mg DAILY PIETER Administration Sodium Chloride 20 ml 01/25/25 06:42 Central Line Flush IV PUSH PRN PRN after blood draws Radiology Results: ITS Impressions Head CT 01/25/25 08:55 Impression: No intracranial hemorrhage, mass, or acute infarct. Atrophy and chronic white matter changes, as above. Chest/Abdomen/Pelvis CT 01/25/25 08:58 Impression: 14 mm proximal right ureteral stone with mild right hydronephrosis. Additional small bilateral nonobstructing renal stones. Cholelithiasis. Small fat-containing umbilical hernia. Renal Ultrasound 01/26/25 21:46 Impression: 1: Unremarkable renal ultrasound. No stones, masses or hydronephrosis. Abdomen X-Ray 01/27/25 09:54 IMPRESSION: Right double-J ureteral stent in place. Chest X-Ray 01/28/25 06:48 Impression: Clear lungs. Left subclavian line in place. Labs Labs: Laboratory Tests 01/28/25 05:23 01/28/25 05:23 Lactic Acid 0.7 Calcium 8.3 L Phosphorus 4.2 Magnesium 2.7 H Total Bilirubin 0.9 AST 64 H ALT 43 Alkaline Phosphatase 181 H Total Protein 5.7 L Albumin 2.8 L Microbiology 01/24/25 23:39 Blood Blood Culture - Final Proteus mirabilis 01/25/25 00:39 Blood Blood Culture - Final Proteus mirabilis 01/26/25 10:57 Urine [place] Urine Culture - Final
--- NOTE | 2025-01-28 15:49 | P.PNIM_ITS ---
Progress Note: A&P Assessment and Plan (1) Septic shock: Code(s): A41.9 - Sepsis, unspecified organism; R65.21 - Severe sepsis with septic shock Status: Acute (2) Abnormal urinalysis: Code(s): R82.90 - Unspecified abnormal findings in urine Status: Acute (3) Acute kidney injury: Code(s): N17.9 - Acute kidney failure, unspecified Status: Acute (4) Leukodystrophy: Onset Date: ~06/2021 Code(s): G31.80 - Leukodystrophy, unspecified Status: Acute (5) Overactive bladder: Code(s): N32.81 - Overactive bladder Status: Acute (6) Lactic acidosis: Code(s): E87.20 - Acidosis, unspecified Status: Acute (7) Chronic constipation: Code(s): K59.09 - Other constipation Status: Acute Plan Patient has septic shock due to UTI. Awaiting stat read interpretation on CT scan to determine if patient may have obstructing stone. Central line placed by ER provider. Continue empiric antibiotic therapy with cefepime and vancomycin. The patient received 30 mL/kilos bolus in the ER. Despite adequate fluid resuscitation pressors have been indicated to maintain maps 65 in systolic blood pressure greater than 90. Will continue monitor strict I&O's and daily weights. Will await blood culture and urine culture results. Awaiting results of CT imaging suspicious for ureteral stone the right side on my review but ER provider did not mention stone on stat read interpretation and I cannot see the stat read imaging report at the time of my chart review. Patient will need Urology consult if obstructing stone confirmed. Will place patient on GI prophylaxis with Protonix. Patient does have lactic acidosis due to above medical issues. Patient has been admitted to the ICU. Wet Crown Blocking Operator has been consulted. The patient's care was discussed in transitioned at the end of my shift. patient presented with fever, UTI and is found to kidney stone, was seen by the urologist and was taken to the OR and had cystoscopy, right retrograde, right stent placement 4.8 Lebanese contour, complex Peralta catheter placement 16 Lebanese, patient urine culture no growth, blood culture is growing, Proteus mirabilis in both bottles, patient is being treated with meropenem, patient clinical symptoms are improving, patient serum creatinine is rising, however his electrolytes are normal, seen by canvass manager and further recommendation to follow, will monitor. patient sister is present in the room gave updates. 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 due to not acting normal. Nursing staff checked on the patient at 22:00 and noticed that the patient was febrile. EMS reported the patient was hypotensive and patient received a normal saline bolus in route to the hospital. His T-max was a 103.1? axillary. On initial arrival to the ER the patient was breathing 40-50 times a minute was tachycardic and hypotensive. He received 30 mL/kilos fluid bolus with initial improvement in blood pressures the low 100s systolic. The patient was awake on presentation but would only say yes or no. His responses or delayed and accuracy of his responses was uncertain. The patient denied having any pain. He was incontinent of urine on arrival to the ER and was straight catheterization his urine was slightly blood tinged. His UA demonstrated 3+ protein 3+ blood 2+ esterase greater than 100 RBCs greater than 100 wbc's and many squamous cells with greater than 20 casts. He did not have any reproducible pain to palpation of the abdomen and was tachypneic he but no abnormal lung sounds. Chest x-ray demonstrated small lung volumes but no acute process. The patient was started on empiric antibiotic therapy with cefepime and vancomycin. Given the patient was still hypotensive after 30 mL/kilos fluid bolus an additional L of fluids was ordered and a central line was placed by ER provider. patient presented with fever, UTI and is found to kidney stone, was seen by the urologist and was taken to the OR and had cystoscopy, right retrograde, right stent placement 4.8 Lebanese contour, complex Peralta catheter placement 16 Lebanese, patient urine culture no growth, blood culture is growing, Proteus mirabilis in both bottles, patient is being treated with meropenem, patient clinical symptoms are improving, patient serum creatinine is rising, however his electrolytes are normal, seen by canvass manager and further recommendation to follow, will monitor. patient sister is present in the room gave updates. Review of Systems Review of Systems: All systems reviewed & are unremarkable except as noted in HPI and below (HPI) Exam Narrative: Patient is comfortable, NAD HEENT: eyes are clear and none icteric LUNGS:CTA HEART: RR S1S2 ABD: BS+, Soft and nontender Lower extremities: no edema SKIN: nonjaundiced Neuro: grossly intact. Objective Data Vital Signs Vital Signs: Vital Signs - 24 hr 01/27/25 16:00 01/27/25 19:24 01/27/25 20:00 Temperature 36.8 C 37.1 C Pulse Rate 95 87 78 Respiratory Rate 24 H 18 18 Blood Pressure 102/51 L 132/82 Pulse Oximetry 91 95 95 Oxygen Delivery Room Air Fraction of Inspired Oxygen 01/27/25 20:22 01/27/25 20:54 01/27/25 22:00 Temperature Pulse Rate 78 80 85 Respiratory Rate 20 Blood Pressure Pulse Oximetry 90 Oxygen Delivery Room Air Fraction of Inspired Oxygen 01/27/25 23:26 01/27/25 23:32 01/28/25 00:00 Temperature 37.0 C Pulse Rate 77 79 86 Respiratory Rate 17 17 Blood Pressure 121/72 Pulse Oximetry 92 92 Oxygen Delivery Room Air Fraction of Inspired Oxygen 01/28/25 02:00 01/28/25 03:58 01/28/25 03:58 Temperature 37.1 C Pulse Rate 81 76 76 Respiratory Rate 17 18 Blood Pressure 121/73 Pulse Oximetry 92 91 Oxygen Delivery Room Air Fraction of Inspired Oxygen 01/28/25 04:00 01/28/25 05:57 01/28/25 08:00 Temperature Pulse Rate 75 80 Respiratory Rate Blood Pressure Pulse Oximetry Oxygen Delivery Room Air Fraction of Inspired Oxygen 01/28/25 08:00 01/28/25 08:00 01/28/25 09:05 Temperature 36.6 C Pulse Rate 72 67 64 Respiratory Rate 24 H Blood Pressure 133/81 Pulse Oximetry 94 Oxygen Delivery Fraction of Inspired Oxygen 01/28/25 10:00 01/28/25 12:00 01/28/25 12:00 Temperature 36.6 C Pulse Rate 65 65 Respiratory Rate 22 H Blood Pressure 124/75 Pulse Oximetry 95 Oxygen Delivery Room Air Fraction of Inspired Oxygen 01/28/25 12:00 01/28/25 14:00 Temperature Pulse Rate 73 69 Respiratory Rate Blood Pressure Pulse Oximetry Oxygen Delivery Fraction of Inspired Oxygen Intake/Output Intake/Output: Intake & Output 01/25/25 01/26/25 01/27/25 01/28/25 23:59 23:59 23:59 23:59 Intake Total 4197.4 2740 1420 Output Total 150 825 900 600 Balance 4047.4 1915 520 -600 Meds/Results Medications: Active Medications Generic Name Dose Route Start Last Admin Trade Name Freq PRN Reason Stop Dose Admin Acetaminophen 650 mg 01/24/25 23:29 01/25/25 21:54 Acetaminophen 650 Mg Suppository RECTAL 650 mg Q6H PRN Administration Mild Pain (1-3) or Fever Acetaminophen 650 mg 01/25/25 04:57 01/25/25 15:55 Acetaminophen 325 Mg Tablet PO 650 mg Q4H PRN Administration Mild Pain (1-3) or Fever Aspirin 81 mg 01/27/25 09:00 01/28/25 09:05 Aspirin 81 Mg Chewable Tablet PO 81 mg DAILY PIETER Administration Baclofen 5 mg 01/27/25 10:20 Baclofen 5 Mg Tablet PO BID PRN Muscle Spasm Cyanocobalamin 1,000 mcg 01/29/25 09:00 Cyanocobalamin Inj 1,000 Mcg/Ml Vial SUB-Q MONTHLY PIETER Enoxaparin Sodium 30 mg 01/25/25 09:00 01/28/25 09:01 Enoxaparin 30 Mg/0.3 Ml Syringe SUB-Q 30 mg DAILY PIETER Administration Furosemide 20 mg 01/27/25 09:00 01/28/25 09:06 Furosemide 20 Mg Tablet PO 20 mg QAM PIETER Administration Meropenem 500 mg/ Sodium 100 mls @ 200 mls/hr 01/25/25 21:00 01/28/25 09:10 Chloride IVPB 200 mls/hr Q12H PIETER Administration Isosorbide Mononitrate 15 mg 01/27/25 09:00 01/28/25 09:06 Isosorbide Mononitrate 15 Mg Tab.Er.24h PO 15 mg DAILY PIETER Administration Metoprolol Succinate 25 mg 01/27/25 09:00 01/28/25 09:05 Metoprolol Succinate Ext Rel 25 Mg Tabcr PO 25 mg DAILY PIETER Administration Ondansetron HCl 4 mg 01/25/25 04:57 Ondansetron Inj 4 Mg/2 Ml Vial IV PUSH Q4H PRN Nausea Oxybutynin Chloride 10 mg 01/27/25 09:00 01/28/25 09:01 Oxybutynin Chloride Xl 5 Mg Tab.Er.24 PO 10 mg DAILY PIETER Administration Pantoprazole Sodium 40 mg 01/28/25 09:00 01/28/25 09:07 Pantoprazole 40 Mg Tablet PO 40 mg QAM PIETER Administration Rosuvastatin Calcium 40 mg 01/27/25 09:00 01/28/25 09:03 Rosuvastatin 20 Mg Tablet PO 40 mg DAILY PIETER Administration Sodium Chloride 20 ml 01/25/25 06:42 Central Line Flush IV PUSH PRN PRN after blood draws Radiology Results: ITS Impressions Head CT 01/25/25 08:55 Impression: No intracranial hemorrhage, mass, or acute infarct. Atrophy and chronic white matter changes, as above. Chest/Abdomen/Pelvis CT 01/25/25 08:58 Impression: 14 mm proximal right ureteral stone with mild right hydronephrosis. Additional small bilateral nonobstructing renal stones. Cholelithiasis. Small fat-containing umbilical hernia. Renal Ultrasound 01/26/25 21:46 Impression: 1: Unremarkable renal ultrasound. No stones, masses or hydronephrosis. Abdomen X-Ray 01/27/25 09:54 IMPRESSION: Right double-J ureteral stent in place. Chest X-Ray 01/28/25 06:48 Impression: Clear lungs. Left subclavian line in place. Labs Labs: Laboratory Results - last 24 hr 01/27/25 01/27/25 01/27/25 06:31 19:42 19:43 WBC RBC Hgb Hct MCV MCH MCHC RDW Plt Count MPV Sodium 135 L Potassium 3.6 Chloride 105 Carbon Dioxide 21 L Anion Gap 9 BUN 72 H Creatinine 7.23 H Estim Creat Clear Calc 13 Estimated GFR 8 L Glucose 153 H Lactic Acid Calcium 8.2 L Phosphorus 4.4 Magnesium Total Bilirubin AST ALT Alkaline Phosphatase Total Protein Albumin 2.7 L Hep Bs Antigen Negative Hep B Core Total Ab Negative 01/28/25 05:23 WBC 14.1 H RBC 4.15 L Hgb 11.5 L Hct 35.4 L MCV 85.3 MCH 27.7 MCHC 32.5 RDW 14.0 Plt Count 102 L MPV 12.4 H Sodium 138 Potassium 3.6 Chloride 107 Carbon Dioxide 21 L Anion Gap 10 BUN 75 H Creatinine 7.67 H Estim Creat Clear Calc 12 Estimated GFR 7 L Glucose 108 Lactic Acid 0.7 Calcium 8.3 L Phosphorus 4.2 Magnesium 2.7 H Total Bilirubin 0.9 AST 64 H ALT 43 Alkaline Phosphatase 181 H Total Protein 5.7 L Albumin 2.8 L Hep Bs Antigen Hep B Core Total Ab Quality VTE Prophylaxis VTE prophylaxis: pharmacologic ordered
[2025-01-28] MEDS: ALTEPLASE 2 MG VIAL (CATHFLO) IV PUSH (20:00)
[2025-01-28] MEDS: cefTRIAXone 2 GM in SODIUM CHLORIDE 0.9% IV 100 ML 200 ML IVPB (20:04)
[2025-01-29] VITALS (15 sets, daily range): BP systolic 112–137; BP diastolic 66–84; PULSE 56–67; RESP 16–22; TEMP 36.6–37.1; O2SAT 95–100
[2025-01-29 05:41] LABS: Hematocrit 35.4 % (42.0-52.0); Hemoglobin 11.3 g/dL (14.0-18.0); Mean Corpuscular HGB Conc 31.9 g/dl (32-36); Mean Corpuscular Hemoglobin 27.5 pg (26-34); Mean Corpuscular Volume 86.1 fl (80-100); Platelet Count Result 104 k/mm3 (150-375); Red Blood Count 4.11 M/mm3 (4.6-6.20); White Blood Count 13.2 K/mm3 (4.5-10.0)
[2025-01-29 05:51] LABS: Alanine Aminotransferase 53 U/L (6-50); Albumin Level 2.9 g/dL (3.5-5.1); Alkaline Phosphatase 187 U/L (38-126); Anion Gap 10 mmol/L (4-12); Aspartate Amino Transferase 91 U/L (17-59); Bilirubin,Total 0.6 mg/dL (0.2-1.3); Blood Urea Nitrogen 77 mg/dL (9-20); Calcium 8.2 mg/dL (8.4-10.2); Carbon Dioxide 21 mmol/L (22-30); Chloride 104 mmol/L (98-107); Estimated CRCL calculation 11 ml/min; Estimated Glomerular Filt Rate 7; Glucose 96 mg/dL (65-110); Magnesium 2.6 mg/dL (1.6-2.3); Potassium 3.5 mmol/L (3.4-5.0); Sodium 135 mmol/L (137-145); Total Protein 5.8 g/dL (6.3-8.2)
[2025-01-29] MEDS: SODIUM CHLORIDE 0.9% IV 1,000 ML 75 ML IV CONT (06:25)
[2025-01-29] MEDS: METOPROLOL SUCCINATE EXT REL 25 MG TABCR PO (09:02)
[2025-01-29] MEDS: oxyBUTYnin CHLORIDE XL 5 MG TAB.ER.24 10 MG PO (09:02)
[2025-01-29] MEDS: ROSUVASTATIN 20 MG TABLET 40 MG PO (09:02)
[2025-01-29] MEDS: ISOSORBIDE MONONITRATE 15 MG TAB.ER.24H PO (09:02)
[2025-01-29] MEDS: CYANOCOBALAMIN INJ 1,000 MCG/ML VIAL 1000 MCG SUB-Q (09:03)
[2025-01-29] MEDS: PANTOPRAZOLE 40 MG TABLET PO (09:03)
[2025-01-29] MEDS: ASPIRIN 81 MG CHEWABLE TABLET PO (09:03)
[2025-01-29] MEDS: ENOXAPARIN 30 MG/0.3 ML SYRINGE SUB-Q (09:03)
--- NOTE | 2025-01-29 12:07 | P.PNNP_ITS ---
Progress Note: A&P Assessment and Plan (1) Acute kidney injury: Code(s): N17.9 - Acute kidney failure, unspecified Status: Acute Assessment and Plan: * continues to decline/worsen * as noted on admission * normal creatinine by last admission here in July 2024 * suspect due to several issues: * hypotension/hemodynamic instability * infection/sepsis (UTI + bacteremia) * obstruction (from nephrolithiasis) * prerenal factors (?) * other (?) * making better urine output * ongoing trial of IVFs * evaluation to date: * admission CT imaging noted * renal ultrasound without obstruction * urine electrolytes non-prerenal * urine eosinophils negative * CPK normal * + proteinuria noted * 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 * weaned off levophed gtt on 01/25 * s/p bicarb IVF resuscitation * follow culture data * urine culture negative * blood cultures noted (see #3) * on antibiotics * follow trend of hemodynamics (3) Bacteremia: Code(s): R78.81 - Bacteremia Status: Acute Assessment and Plan: * as noted by blood cultures: * on 01/24 - Proteus mirabilis * on 01/25 - Proteus mirabilis * on antibiotics * follow repeat cultures (4) Metabolic acidosis: Code(s): E87.20 - Acidosis, unspecified Status: Acute Assessment and Plan: * resolving * due to RAJESH/ARF along with lactic acidosis * lactic acid has normalized * off bicarb IVFs as this time * follow CO2 levels (5) Urinary tract infection: Qualifiers: Hematuria presence: with hematuria Urinary tract infection type: acute cystitis Qualified Code(s): N30.01 - Acute cystitis with hematuria Code(s): N39.0 - Urinary tract infection, site not specified Status: Acute Assessment and Plan: * suspected based on UA on admission * follow urine culture results - negative to date * on antibiotics (6) Anemia: Code(s): D64.9 - Anemia, unspecified Status: Acute Assessment and Plan: * due to RAJESH with a component of dilution from IVFs * follow trend of H/H (7) Nephrolithiasis: Code(s): N20.0 - Calculus of kidney Status: Acute Assessment and Plan: * as noted on admission imaging complicated by hydronephrosis * Urology following * s/p cystoscopy with right ureteral stent placement * further intervention with regard to right kidney stone to be done at a later date.... (8) Encephalopathy: Code(s): G93.40 - Encephalopathy, unspecified Status: Acute Assessment and Plan: * per family, has some short memory issues * likely complicated by sepsis/infection and know history of leukodystrophy * head CT negative * normal TSH and ammonia * follow mentation Will continue to follow. L Subjective Date/time seen: 01/29/25 12:07 Interval history: Follow-up for acute kidney injury/acute renal failure. Renal function/creatinine continues to decline but no critical electrolytes or evidence of volume overload with fairly stable if not improving urine output; eating and drinking reasonably well; no other issues/events overnight or earlier this morning. Exam 2 Narrative: General: WD/WN male in NAD Heart: normal S1 and S2; no rub Lungs: clear anteriorly; decreased at bases Abdomen: soft, nontender, nondistended, positive bowel sounds Extremities: no cyanosis or clubbing; no edema Skin: no rash Objective Data Vital Signs Vital Signs: Vital Signs Temp Pulse Resp BP Pulse Ox O2 Del Method 01/29/25 12:00 58 L 01/29/25 11:57 Room Air 01/29/25 11:52 97.9 F 58 L 22 H 112/66 95 01/29/25 10:00 60 01/29/25 09:02 62 01/29/25 08:00 60 01/29/25 08:00 56 L 16 95 Room Air 01/29/25 08:00 98.3 F 59 L 18 128/70 96 01/29/25 05:59 57 L 01/29/25 04:00 58 L 01/29/25 04:00 56 L 16 95 Room Air 01/29/25 03:19 98.3 F 56 L 16 127/84 95 01/29/25 02:00 61 01/29/25 00:00 67 01/28/25 23:49 66 18 96 Room Air 01/28/25 23:30 98.2 F 65 20 134/80 96 01/28/25 22:00 62 01/28/25 20:10 65 18 96 Room Air 01/28/25 20:00 62 01/28/25 19:52 98.1 F 65 18 127/80 96 01/28/25 18:00 65 Intake/Output Intake/Output: Intake & Output 01/26/25 01/27/25 01/28/25 01/29/25 23:59 23:59 23:59 23:59 Intake Total 2740 1420 400 778 Output Total 358 080 5219 650 Balance 1915 520 -750 128 Meds/Results Medications: Active Medications Generic Name Dose Route Start Last Admin Trade Name Freq PRN Reason Stop Dose Admin Acetaminophen 650 mg 01/24/25 23:29 01/25/25 21:54 Acetaminophen 650 Mg Suppository RECTAL 650 mg Q6H PRN Administration Mild Pain (1-3) or Fever Acetaminophen 650 mg 01/25/25 04:57 01/25/25 15:55 Acetaminophen 325 Mg Tablet PO 650 mg Q4H PRN Administration Mild Pain (1-3) or Fever Aspirin 81 mg 01/27/25 09:00 01/29/25 09:03 Aspirin 81 Mg Chewable Tablet PO 81 mg DAILY PIETER Administration Baclofen 5 mg 01/27/25 10:20 Baclofen 5 Mg Tablet PO BID PRN Muscle Spasm Cyanocobalamin 1,000 mcg 01/29/25 09:00 01/29/25 09:03 Cyanocobalamin Inj 1,000 Mcg/Ml Vial SUB-Q 1,000 mcg MONTHLY PIETER Administration Enoxaparin Sodium 30 mg 01/25/25 09:00 01/29/25 09:03 Enoxaparin 30 Mg/0.3 Ml Syringe SUB-Q 30 mg DAILY PIETER Administration Furosemide 20 mg 01/27/25 09:00 01/28/25 09:06 Furosemide 20 Mg Tablet PO 20 mg On Hold: 01/28/25 17:31 QAM PIETER Administration Ceftriaxone Sodium 2 gm/ 100 mls @ 200 mls/hr 01/28/25 21:00 01/28/25 20:04 Sodium Chloride IVPB 200 mls/hr Q24H PIETER Administration Sodium Chloride 1,000 mls @ 75 mls/hr 01/29/25 06:20 01/29/25 06:25 Normal Saline Iv IV CONT 01/29/25 19:39 75 mls/hr .[id number] PIETER Administration Isosorbide Mononitrate 15 mg 01/27/25 09:00 01/29/25 09:02 Isosorbide Mononitrate 15 Mg Tab.Er.24h PO 15 mg DAILY PIETER Administration Metoprolol Succinate 25 mg 01/27/25 09:00 01/29/25 09:02 Metoprolol Succinate Ext Rel 25 Mg Tabcr PO 25 mg DAILY PIETER Administration Ondansetron HCl 4 mg 01/25/25 04:57 Ondansetron Inj 4 Mg/2 Ml Vial IV PUSH Q4H PRN Nausea Oxybutynin Chloride 10 mg 01/27/25 09:00 01/29/25 09:02 Oxybutynin Chloride Xl 5 Mg Tab.Er.24 PO 10 mg DAILY PIETER Administration Pantoprazole Sodium 40 mg 01/28/25 09:00 01/29/25 09:03 Pantoprazole 40 Mg Tablet PO 40 mg QAM PIETER Administration Rosuvastatin Calcium 40 mg 01/27/25 09:00 01/29/25 09:02 Rosuvastatin 20 Mg Tablet PO 40 mg DAILY PIETER Administration Sodium Chloride 20 ml 01/25/25 06:42 Central Line Flush IV PUSH PRN PRN after blood draws Radiology Results: ITS Impressions Head CT 01/25/25 08:55 Impression: No intracranial hemorrhage, mass, or acute infarct. Atrophy and chronic white matter changes, as above. Chest/Abdomen/Pelvis CT 01/25/25 08:58 Impression: 14 mm proximal right ureteral stone with mild right hydronephrosis. Additional small bilateral nonobstructing renal stones. Cholelithiasis. Small fat-containing umbilical hernia. Renal Ultrasound 01/26/25 21:46 Impression: 1: Unremarkable renal ultrasound. No stones, masses or hydronephrosis. Abdomen X-Ray 01/27/25 09:54 IMPRESSION: Right double-J ureteral stent in place. Chest X-Ray 01/28/25 06:48 Impression: Clear lungs. Left subclavian line in place. Labs Labs: Laboratory Tests 01/29/25 05:32 01/29/25 05:32 Lactic Acid 0.6 L Calcium 8.2 L Phosphorus 4.1 Magnesium 2.6 H Total Bilirubin 0.6 AST 91 H ALT 53 H Alkaline Phosphatase 187 H Total Protein 5.8 L Albumin 2.9 L Microbiology 01/24/25 23:39 Blood Blood Culture - Final Proteus mirabilis 01/25/25 00:39 Blood Blood Culture - Final Proteus mirabilis
--- NOTE | 2025-01-29 18:34 | PM.IMPN ---
Progress Note: A&P Assessment and Plan (1) Septic shock: Code(s): A41.9 - Sepsis, unspecified organism; R65.21 - Severe sepsis with septic shock Status: Acute (2) Abnormal urinalysis: Code(s): R82.90 - Unspecified abnormal findings in urine Status: Acute Assessment and Plan: Patient was in septic shock likely secondary to urinary tract infection-off Levophed, hemodynamically stable, off IV fluid, downgraded to medical with tele UA shows 2+ leukocyte is trace more than 100 WBC in the urine CT abdomen and pelvis shows cystitis and or changes due to prostatomegaly and right renal pelvis 1.2 cm stone with mild hydronephrosis Continue ceftriaxone (3) Acute kidney injury: Code(s): N17.9 - Acute kidney failure, unspecified Status: Acute Assessment and Plan: Likely secondary to septic shock On admission, creatinine 2.71, today 8.03 Nephrology is following, appreciate recs (4) Leukodystrophy: Onset Date: ~06/2021 Code(s): G31.80 - Leukodystrophy, unspecified Status: Acute (5) Overactive bladder: Code(s): N32.81 - Overactive bladder Status: Acute (6) Lactic acidosis: Code(s): E87.20 - Acidosis, unspecified Status: Acute Assessment and Plan: Lactic acid normalized (7) Chronic constipation: Code(s): K59.09 - Other constipation Status: Acute (8) Hydronephrosis: Qualifiers: Hydronephrosis type: with ureteral calculous obstruction Qualified Code(s): N13.2 - Hydronephrosis with renal and ureteral calculous obstruction Code(s): N13.30 - Unspecified hydronephrosis Status: Acute Assessment and Plan: Likely secondary to left kidney stone Status post cystoscopy, right 3 GERD, right stent placement 4.8 [place] 01/25/2025 by urology Plan for definitive to outpatient stone treatment and stent management Subjective Date/time seen: 01/29/25 18:34 Interval history: Reports he is feeling better in terms of chest pressure or shortness of breath. No fever or chills. No abdominal pain or diarrhea Exam Const: Other: looks tired. Chest: Other: no breathing difficulty, nonlabor breath Central line on left chest, dressing applied, no erythema Resp: Effort/Inspection: normal respiratory effort Auscultation: clear to auscultation bilaterally Cardio: Other: RRR, No murmur or gallop GI: Other: soft, but large body habitus to appreciate organomegally Extrem: Other: bilateral lower extremity edema Objective Data Vital Signs Vital Signs: Vital Signs - 24 hr 01/28/25 19:52 01/28/25 20:00 01/28/25 20:10 Temperature 36.7 C Pulse Rate 65 62 65 Respiratory Rate 18 18 Blood Pressure 127/80 Pulse Oximetry 96 96 Oxygen Delivery Room Air 01/28/25 22:00 01/28/25 23:30 01/28/25 23:49 Temperature 36.8 C Pulse Rate 62 65 66 Respiratory Rate 20 18 Blood Pressure 134/80 Pulse Oximetry 96 96 Oxygen Delivery Room Air 01/29/25 00:00 01/29/25 02:00 01/29/25 03:19 Temperature 36.8 C Pulse Rate 67 61 56 L Respiratory Rate 16 Blood Pressure 127/84 Pulse Oximetry 95 Oxygen Delivery 01/29/25 04:00 01/29/25 04:00 01/29/25 05:59 Temperature Pulse Rate 56 L 58 L 57 L Respiratory Rate 16 Blood Pressure Pulse Oximetry 95 Oxygen Delivery Room Air 01/29/25 08:00 01/29/25 08:00 01/29/25 08:00 Temperature 36.8 C Pulse Rate 59 L 56 L 60 Respiratory Rate 18 16 Blood Pressure 128/70 Pulse Oximetry 96 95 Oxygen Delivery Room Air 01/29/25 09:02 01/29/25 10:00 01/29/25 11:52 Temperature 36.6 C Pulse Rate 62 60 58 L Respiratory Rate 22 H Blood Pressure 112/66 Pulse Oximetry 95 Oxygen Delivery 01/29/25 11:57 01/29/25 12:00 01/29/25 15:56 Temperature 36.8 C Pulse Rate 58 L 59 L Respiratory Rate 16 Blood Pressure 130/73 Pulse Oximetry 98 Oxygen Delivery Room Air 01/29/25 16:00 Temperature Pulse Rate 61 Respiratory Rate Blood Pressure Pulse Oximetry Oxygen Delivery Intake/Output Intake/Output: Intake & Output 01/26/25 01/27/25 01/28/25 01/29/25 23:59 23:59 23:59 23:59 Intake Total 2740 6486 605 6305 Output Total 259 258 9369 1350 Balance 1915 520 -750 606 Meds/Results Medications: Active Medications Generic Name Dose Route Start Last Admin Trade Name Freq PRN Reason Stop Dose Admin Acetaminophen 650 mg 01/24/25 23:29 01/25/25 21:54 Acetaminophen 650 Mg Suppository RECTAL 650 mg Q6H PRN Administration Mild Pain (1-3) or Fever Acetaminophen 650 mg 01/25/25 04:57 01/25/25 15:55 Acetaminophen 325 Mg Tablet PO 650 mg Q4H PRN Administration Mild Pain (1-3) or Fever Aspirin 81 mg 01/27/25 09:00 01/29/25 09:03 Aspirin 81 Mg Chewable Tablet PO 81 mg DAILY PIETER Administration Baclofen 5 mg 01/27/25 10:20 Baclofen 5 Mg Tablet PO BID PRN Muscle Spasm Cyanocobalamin 1,000 mcg 01/29/25 09:00 01/29/25 09:03 Cyanocobalamin Inj 1,000 Mcg/Ml Vial SUB-Q 1,000 mcg MONTHLY PIETER Administration Enoxaparin Sodium 30 mg 01/25/25 09:00 01/29/25 09:03 Enoxaparin 30 Mg/0.3 Ml Syringe SUB-Q 30 mg DAILY PIETER Administration Furosemide 20 mg 01/27/25 09:00 01/28/25 09:06 Furosemide 20 Mg Tablet PO 20 mg On Hold: 01/28/25 17:31 QAM PIETER Administration Ceftriaxone Sodium 2 gm/ 100 mls @ 200 mls/hr 01/28/25 21:00 01/28/25 20:04 Sodium Chloride IVPB 200 mls/hr Q24H PIETER Administration Sodium Chloride 1,000 mls @ 75 mls/hr 01/29/25 06:20 01/29/25 06:25 Normal Saline Iv IV CONT 01/29/25 19:39 75 mls/hr .[id number] PIETER Administration Isosorbide Mononitrate 15 mg 01/27/25 09:00 01/29/25 09:02 Isosorbide Mononitrate 15 Mg Tab.Er.24h PO 15 mg DAILY PIETER Administration Metoprolol Succinate 25 mg 01/27/25 09:00 01/29/25 09:02 Metoprolol Succinate Ext Rel 25 Mg Tabcr PO 25 mg DAILY PIETER Administration Ondansetron HCl 4 mg 01/25/25 04:57 Ondansetron Inj 4 Mg/2 Ml Vial IV PUSH Q4H PRN Nausea Oxybutynin Chloride 10 mg 01/27/25 09:00 01/29/25 09:02 Oxybutynin Chloride Xl 5 Mg Tab.Er.24 PO 10 mg DAILY PIETER Administration Pantoprazole Sodium 40 mg 01/28/25 09:00 01/29/25 09:03 Pantoprazole 40 Mg Tablet PO 40 mg QAM PIETER Administration Rosuvastatin Calcium 40 mg 01/27/25 09:00 01/29/25 09:02 Rosuvastatin 20 Mg Tablet PO 40 mg DAILY PIETER Administration Sodium Chloride 20 ml 01/25/25 06:42 Central Line Flush IV PUSH PRN PRN after blood draws Radiology Results: ITS Impressions Head CT 01/25/25 08:55 Impression: No intracranial hemorrhage, mass, or acute infarct. Atrophy and chronic white matter changes, as above. Chest/Abdomen/Pelvis CT 01/25/25 08:58 Impression: 14 mm proximal right ureteral stone with mild right hydronephrosis. Additional small bilateral nonobstructing renal stones. Cholelithiasis. Small fat-containing umbilical hernia. Renal Ultrasound 01/26/25 21:46 Impression: 1: Unremarkable renal ultrasound. No stones, masses or hydronephrosis. Abdomen X-Ray 01/27/25 09:54 IMPRESSION: Right double-J ureteral stent in place. Chest X-Ray 01/28/25 06:48 Impression: Clear lungs. Left subclavian line in place. Labs Labs: Laboratory Results - last 24 hr 01/29/25 05:32 WBC 13.2 H RBC 4.11 L Hgb 11.3 L Hct 35.4 L MCV 86.1 MCH 27.5 MCHC 31.9 L RDW 13.9 Plt Count 104 L MPV 12.4 H Sodium 135 L Potassium 3.5 Chloride 104 Carbon Dioxide 21 L Anion Gap 10 BUN 77 H Creatinine 8.03 H Estim Creat Clear Calc 11 Estimated GFR 7 L Glucose 96 Lactic Acid 0.6 L Calcium 8.2 L Phosphorus 4.1 Magnesium 2.6 H Total Bilirubin 0.6 AST 91 H ALT 53 H Alkaline Phosphatase 187 H Total Protein 5.8 L Albumin 2.9 L Quality VTE Prophylaxis VTE prophylaxis: pharmacologic ordered
[2025-01-29] MEDS: cefTRIAXone 2 GM in SODIUM CHLORIDE 0.9% IV 100 ML 200 ML IVPB (20:27)
[2025-01-30] VITALS (11 sets, daily range): BP systolic 129–146; BP diastolic 69–87; PULSE 56–62; RESP 16–20; TEMP 36.2–36.9; O2SAT 95–99
[2025-01-30 04:31] LABS: Hematocrit 35.0 % (42.0-52.0); Hemoglobin 11.2 g/dL (14.0-18.0); Mean Corpuscular HGB Conc 32.0 g/dl (32-36); Mean Corpuscular Hemoglobin 27.7 pg (26-34); Mean Corpuscular Volume 86.4 fl (80-100); Platelet Count Result 137 k/mm3 (150-375); Red Blood Count 4.05 M/mm3 (4.6-6.20); White Blood Count 11.7 K/mm3 (4.5-10.0)
[2025-01-30 04:43] LABS: Alanine Aminotransferase 55 U/L (6-50); Albumin Level 2.9 g/dL (3.5-5.1); Alkaline Phosphatase 190 U/L (38-126); Anion Gap 8 mmol/L (4-12); Aspartate Amino Transferase 92 U/L (17-59); Bilirubin,Total 0.5 mg/dL (0.2-1.3); Blood Urea Nitrogen 82 mg/dL (9-20); Calcium 8.1 mg/dL (8.4-10.2); Carbon Dioxide 22 mmol/L (22-30); Chloride 104 mmol/L (98-107); Estimated CRCL calculation 11 ml/min; Estimated Glomerular Filt Rate 7; Glucose 105 mg/dL (65-110); Magnesium 2.5 mg/dL (1.6-2.3); Potassium 3.6 mmol/L (3.4-5.0); Sodium 134 mmol/L (137-145); Total Protein 5.8 g/dL (6.3-8.2)
[2025-01-30] MEDS: ROSUVASTATIN 20 MG TABLET 40 MG PO (08:25)
[2025-01-30] MEDS: ASPIRIN 81 MG CHEWABLE TABLET PO (08:25)
[2025-01-30] MEDS: oxyBUTYnin CHLORIDE XL 5 MG TAB.ER.24 10 MG PO (08:25)
[2025-01-30] MEDS: METOPROLOL SUCCINATE EXT REL 25 MG TABCR PO (08:25)
[2025-01-30] MEDS: ISOSORBIDE MONONITRATE 15 MG TAB.ER.24H PO (08:25)
[2025-01-30] MEDS: PANTOPRAZOLE 40 MG TABLET PO (08:25)
[2025-01-30] MEDS: ENOXAPARIN 30 MG/0.3 ML SYRINGE SUB-Q (08:25)
--- NOTE | 2025-01-30 10:48 | PC.NURSE ---
This patient, Tashi Esposito, was transferred to [facility] on 01/30/25 at 1048. Personal belongings sent with patient. Report given to MICHAEL Pratt. Appropriate documentation sent with patient. Patient voiced no complaints or concerns at time of transfer. Erwin Taylor RN
--- NOTE | 2025-01-30 11:17 | PC.NURSE ---
This patient, Tashi Esposito, was received from on 01/30/25 at 1117. Patient/family oriented to unit policies and routines.
--- NOTE | 2025-01-30 11:53 | PC.NURSE ---
On 01/30/25, the student, Britt, provided care and completed [facility] documentation on this patient. I have reviewed the student's documentation and agree with the findings.
--- NOTE | 2025-01-30 13:33 | P.PNNP_ITS ---
Progress Note: A&P Assessment and Plan (1) Acute kidney injury: Code(s): N17.9 - Acute kidney failure, unspecified Status: Acute Assessment and Plan: * some improvement noted * as noted on admission * normal creatinine by last admission here in July 2024 * suspect due to several issues: * hypotension/hemodynamic instability * infection/sepsis (UTI + bacteremia) * obstruction (from nephrolithiasis) * prerenal factors (?) * other (?) * making better urine output * ongoing trial of IVFs * evaluation to date: * admission CT imaging noted * renal ultrasound without obstruction * urine electrolytes non-prerenal * urine eosinophils negative * CPK normal * + proteinuria noted * remains at risk for [employer]/dialysis * however, no critical electrolytes and volume status stable * trial of IVFs today * follow trend of repeat labs and UOP (2) Septic shock: Code(s): A41.9 - Sepsis, unspecified organism; R65.21 - Severe sepsis with septic shock Status: Acute Assessment and Plan: * resolving * suspect due to UTI complicated by right ureteral stone and hydronephrosis * however, positive blood cultures noted as well... * weaned off levophed gtt on 01/25 * s/p bicarb IVF resuscitation * follow culture data * urine culture negative * blood cultures noted (see #3) * on antibiotics * follow trend of hemodynamics (3) Bacteremia: Code(s): R78.81 - Bacteremia Status: Acute Assessment and Plan: * as noted by blood cultures: * on 01/24 - Proteus mirabilis * on 01/25 - Proteus mirabilis * on antibiotics * follow repeat cultures (4) Metabolic acidosis: Code(s): E87.20 - Acidosis, unspecified Status: Acute Assessment and Plan: * resolving * due to RAJESH/ARF along with lactic acidosis * lactic acid has normalized * off bicarb IVFs as this time * follow CO2 levels (5) Urinary tract infection: Qualifiers: Hematuria presence: with hematuria Urinary tract infection type: acute cystitis Qualified Code(s): N30.01 - Acute cystitis with hematuria Code(s): N39.0 - Urinary tract infection, site not specified Status: Acute Assessment and Plan: * suspected based on UA on admission * follow urine culture results - negative to date * on antibiotics (6) Anemia: Code(s): D64.9 - Anemia, unspecified Status: Acute Assessment and Plan: * due to RAJESH with a component of dilution from IVFs * follow trend of H/H (7) Nephrolithiasis: Code(s): N20.0 - Calculus of kidney Status: Acute Assessment and Plan: * as noted on admission imaging complicated by hydronephrosis * Urology following * s/p cystoscopy with right ureteral stent placement * further intervention with regard to right kidney stone to be done at a later date.... (8) Encephalopathy: Code(s): G93.40 - Encephalopathy, unspecified Status: Acute Assessment and Plan: * seems stable * per family, has some short memory issues * likely complicated by sepsis/infection and know history of leukodystrophy * head CT negative * normal TSH and ammonia * follow mentation Will continue to follow. L Subjective Date/time seen: 01/30/25 13:33 Interval history: Follow-up for acute kidney injury/acute renal failure. No apparent distress noted at the time of my visit; renal function/creatinine appears to be improving at this time; continues to make good urine output; s/p trial of IVFs yesterday; no other issues or events overnight or earlier this morning. Exam 2 Narrative: General: WD/WN male in NAD Heart: normal S1 and S2; no rub Lungs: clear anteriorly; decreased at bases Abdomen: soft, nontender, nondistended, positive bowel sounds Extremities: no cyanosis or clubbing; no edema Skin: no nodules Objective Data Vital Signs Vital Signs: Vital Signs Temp Pulse Resp BP Pulse Ox O2 Del Method 01/30/25 08:25 62 01/30/25 08:12 98.5 F 58 L 18 129/69 98 01/30/25 08:00 58 L 01/30/25 08:00 98 Room Air 01/30/25 07:35 98.0 F 59 L 20 131/85 99 01/30/25 04:00 58 L 01/30/25 00:00 57 L 01/29/25 23:11 98.7 F 62 17 137/75 100 01/29/25 20:08 62 16 98 Room Air 01/29/25 20:00 63 Intake/Output Intake/Output: Intake & Output 01/27/25 01/28/25 01/29/25 01/30/25 23:59 23:59 23:59 23:59 Intake Total 9667 129 8919 716 Output Total 900 1150 1700 1275 Balance 520 -650 4506 -079 Meds/Results Medications: Active Medications Generic Name Dose Route Start Last Admin Trade Name Freq PRN Reason Stop Dose Admin Acetaminophen 650 mg 01/24/25 23:29 01/25/25 21:54 Acetaminophen 650 Mg Suppository RECTAL 650 mg Q6H PRN Administration Mild Pain (1-3) or Fever Acetaminophen 650 mg 01/25/25 04:57 01/25/25 15:55 Acetaminophen 325 Mg Tablet PO 650 mg Q4H PRN Administration Mild Pain (1-3) or Fever Aspirin 81 mg 01/27/25 09:00 01/30/25 08:25 Aspirin 81 Mg Chewable Tablet PO 81 mg DAILY PIETER Administration Baclofen 5 mg 01/27/25 10:20 Baclofen 5 Mg Tablet PO BID PRN Muscle Spasm Cyanocobalamin 1,000 mcg 01/29/25 09:00 01/29/25 09:03 Cyanocobalamin Inj 1,000 Mcg/Ml Vial SUB-Q 1,000 mcg MONTHLY PIETER Administration Enoxaparin Sodium 30 mg 01/25/25 09:00 01/30/25 08:25 Enoxaparin 30 Mg/0.3 Ml Syringe SUB-Q 30 mg DAILY PIETER Administration Furosemide 20 mg 01/27/25 09:00 01/28/25 09:06 Furosemide 20 Mg Tablet PO 20 mg On Hold: 01/28/25 17:31 QAM PIETER Administration Ceftriaxone Sodium 2 gm/ 100 mls @ 200 mls/hr 01/28/25 21:00 01/29/25 20:57 Sodium Chloride IVPB Infused Q24H PIETER Infusion Isosorbide Mononitrate 15 mg 01/27/25 09:00 01/30/25 08:25 Isosorbide Mononitrate 15 Mg Tab.Er.24h PO 15 mg DAILY PIETER Administration Metoprolol Succinate 25 mg 01/27/25 09:00 01/30/25 08:25 Metoprolol Succinate Ext Rel 25 Mg Tabcr PO 25 mg DAILY PIETER Administration Ondansetron HCl 4 mg 01/25/25 04:57 Ondansetron Inj 4 Mg/2 Ml Vial IV PUSH Q4H PRN Nausea Oxybutynin Chloride 10 mg 01/27/25 09:00 01/30/25 08:25 Oxybutynin Chloride Xl 5 Mg Tab.Er.24 PO 10 mg DAILY PIETER Administration Pantoprazole Sodium 40 mg 01/28/25 09:00 01/30/25 08:25 Pantoprazole 40 Mg Tablet PO 40 mg QAM PIETER Administration Polyethylene Glycol 17 gm 01/30/25 09:50 01/30/25 10:28 Polyethylene Glycol 3350 17 Gm Powd.Pack PO 17 gm QAM PIETER Administration Rosuvastatin Calcium 40 mg 01/27/25 09:00 01/30/25 08:25 Rosuvastatin 20 Mg Tablet PO 40 mg DAILY PIETER Administration Sodium Chloride 20 ml 01/25/25 06:42 Central Line Flush IV PUSH PRN PRN after blood draws Radiology Results: ITS Impressions Head CT 01/25/25 08:55 Impression: No intracranial hemorrhage, mass, or acute infarct. Atrophy and chronic white matter changes, as above. Chest/Abdomen/Pelvis CT 01/25/25 08:58 Impression: 14 mm proximal right ureteral stone with mild right hydronephrosis. Additional small bilateral nonobstructing renal stones. Cholelithiasis. Small fat-containing umbilical hernia. Renal Ultrasound 01/26/25 21:46 Impression: 1: Unremarkable renal ultrasound. No stones, masses or hydronephrosis. Abdomen X-Ray 01/27/25 09:54 IMPRESSION: Right double-J ureteral stent in place. Chest X-Ray 01/28/25 06:48 Impression: Clear lungs. Left subclavian line in place. Labs Labs: Laboratory Tests 01/30/25 04:25 01/30/25 04:25 Lactic Acid 0.5 L Calcium 8.1 L Phosphorus 4.3 Magnesium 2.5 H Total Bilirubin 0.5 AST 92 H ALT 55 H Alkaline Phosphatase 190 H Total Protein 5.8 L Albumin 2.9 L
--- NOTE | 2025-01-30 18:29 | P.PNIM_ITS ---
Progress Note: A&P Assessment and Plan (1) Septic shock: Code(s): A41.9 - Sepsis, unspecified organism; R65.21 - Severe sepsis with septic shock Status: Acute (2) Abnormal urinalysis: Code(s): R82.90 - Unspecified abnormal findings in urine Status: Acute Assessment and Plan: Patient was in septic shock likely secondary to urinary tract infection-off Levophed, hemodynamically stable, off IV fluid, downgraded to medical with tele UA shows 2+ leukocyte is trace more than 100 WBC in the urine CT abdomen and pelvis shows cystitis and or changes due to prostatomegaly and right renal pelvis 1.2 cm stone with mild hydronephrosis Continue ceftriaxone (3) Acute kidney injury: Code(s): N17.9 - Acute kidney failure, unspecified Status: Acute Assessment and Plan: Likely secondary to septic shock On admission, creatinine 2.71, today 7.91 Nephrology is following, appreciate recs (4) Leukodystrophy: Onset Date: ~06/2021 Code(s): G31.80 - Leukodystrophy, unspecified Status: Acute (5) Overactive bladder: Code(s): N32.81 - Overactive bladder Status: Acute (6) Lactic acidosis: Code(s): E87.20 - Acidosis, unspecified Status: Acute Assessment and Plan: Lactic acid normalized (7) Chronic constipation: Code(s): K59.09 - Other constipation Status: Acute Assessment and Plan: MiraLax p.r.n. (8) Hydronephrosis: Qualifiers: Hydronephrosis type: with ureteral calculous obstruction Qualified Code(s): N13.2 - Hydronephrosis with renal and ureteral calculous obstruction Code(s): N13.30 - Unspecified hydronephrosis Status: Acute Assessment and Plan: Likely secondary to left kidney stone Status post cystoscopy, right 3 GERD, right stent placement 4.8 [place] 01/25/2025 by urology Plan for definitive to outpatient stone treatment and stent management (9) Edema of both feet: Code(s): R60.0 - Localized edema Status: Acute Assessment and Plan: Likely secondary to IV fluid 2D echo 03/14/2024 shows EF 55-60%, normal left ventricle systolic function, suspected diastolic function abnormal at that point On clinical exam there is no sign of cardiac dysfunction Lasix challenge today Plan On exam patient looks edematous on the feet Kidney function is better today Will give Lasix 1 dose CMP tomorrow Subjective Date/time seen: 01/30/25 18:29 Interval history: Patient was more awake this morning. Did not have bowel movement for a while. Big belly, not distended not tender. No fever, chills, abdominal pain, and diarrhea Exam Narrative: Patient is comfortable, NAD HEENT: eyes are clear and none icteric LUNGS:CTA HEART: RR S1S2 ABD: BS+, Soft and nontender Lower extremities: no edema SKIN: nonjaundiced Neuro: grossly intact. Chest: Other: no breathing difficulty, nonlabor breath Central line on left chest, dressing applied, no erythema Resp: Auscultation: clear to auscultation bilaterally Cardio: Other: RRR, No murmur or gallop Extrem: Other: bilateral lower extremity edema Objective Data Vital Signs Vital Signs: Vital Signs - 24 hr 01/29/25 20:00 01/29/25 20:08 01/29/25 23:11 Temperature 37.1 C Pulse Rate 63 62 62 Respiratory Rate 16 17 Blood Pressure 137/75 Pulse Oximetry 98 100 Oxygen Delivery Room Air 01/30/25 00:00 01/30/25 04:00 01/30/25 07:35 Temperature 36.7 C Pulse Rate 57 L 58 L 59 L Respiratory Rate 20 Blood Pressure 131/85 Pulse Oximetry 99 Oxygen Delivery 01/30/25 08:00 01/30/25 08:00 01/30/25 08:12 Temperature 36.9 C Pulse Rate 58 L 58 L Respiratory Rate 18 Blood Pressure 129/69 Pulse Oximetry 98 98 Oxygen Delivery Room Air 01/30/25 08:25 01/30/25 16:00 01/30/25 16:00 Temperature 36.2 C L Pulse Rate 62 61 56 L Respiratory Rate 20 Blood Pressure 138/87 Pulse Oximetry 98 Oxygen Delivery Intake/Output Intake/Output: Intake & Output 01/27/25 01/28/25 01/29/25 01/30/25 23:59 23:59 23:59 23:59 Intake Total 1377 566 9708 716 Output Total 900 1150 1700 1275 Balance 520 -650 1356 -559 Meds/Results Medications: Active Medications Generic Name Dose Route Start Last Admin Trade Name Freq PRN Reason Stop Dose Admin Acetaminophen 650 mg 01/24/25 23:29 01/25/25 21:54 Acetaminophen 650 Mg Suppository RECTAL 650 mg Q6H PRN Administration Mild Pain (1-3) or Fever Acetaminophen 650 mg 01/25/25 04:57 01/25/25 15:55 Acetaminophen 325 Mg Tablet PO 650 mg Q4H PRN Administration Mild Pain (1-3) or Fever Aspirin 81 mg 01/27/25 09:00 01/30/25 08:25 Aspirin 81 Mg Chewable Tablet PO 81 mg DAILY PIETER Administration Baclofen 5 mg 01/27/25 10:20 Baclofen 5 Mg Tablet PO BID PRN Muscle Spasm Cyanocobalamin 1,000 mcg 01/29/25 09:00 01/29/25 09:03 Cyanocobalamin Inj 1,000 Mcg/Ml Vial SUB-Q 1,000 mcg MONTHLY PIETER Administration Enoxaparin Sodium 30 mg 01/25/25 09:00 01/30/25 08:25 Enoxaparin 30 Mg/0.3 Ml Syringe SUB-Q 30 mg DAILY PIETER Administration Furosemide 20 mg 01/27/25 09:00 01/28/25 09:06 Furosemide 20 Mg Tablet PO 20 mg On Hold: 01/28/25 17:31 QAM PIETER Administration Ceftriaxone Sodium 2 gm/ 100 mls @ 200 mls/hr 01/28/25 21:00 01/29/25 20:57 Sodium Chloride IVPB Infused Q24H PIETER Infusion Isosorbide Mononitrate 15 mg 01/27/25 09:00 01/30/25 08:25 Isosorbide Mononitrate 15 Mg Tab.Er.24h PO 15 mg DAILY PIETER Administration Metoprolol Succinate 25 mg 01/27/25 09:00 01/30/25 08:25 Metoprolol Succinate Ext Rel 25 Mg Tabcr PO 25 mg DAILY PIETER Administration Ondansetron HCl 4 mg 01/25/25 04:57 Ondansetron Inj 4 Mg/2 Ml Vial IV PUSH Q4H PRN Nausea Oxybutynin Chloride 10 mg 01/27/25 09:00 01/30/25 08:25 Oxybutynin Chloride Xl 5 Mg Tab.Er.24 PO 10 mg DAILY PIETER Administration Pantoprazole Sodium 40 mg 01/28/25 09:00 01/30/25 08:25 Pantoprazole 40 Mg Tablet PO 40 mg QAM PIETER Administration Polyethylene Glycol 17 gm 01/30/25 09:50 01/30/25 10:28 Polyethylene Glycol 3350 17 Gm Powd.Pack PO 17 gm QAM PIETER Administration Rosuvastatin Calcium 40 mg 01/27/25 09:00 01/30/25 08:25 Rosuvastatin 20 Mg Tablet PO 40 mg DAILY PIETER Administration Sodium Chloride 20 ml 01/25/25 06:42 Central Line Flush IV PUSH PRN PRN after blood draws Radiology Results: ITS Impressions Head CT 01/25/25 08:55 Impression: No intracranial hemorrhage, mass, or acute infarct. Atrophy and chronic white matter changes, as above. Chest/Abdomen/Pelvis CT 01/25/25 08:58 Impression: 14 mm proximal right ureteral stone with mild right hydronephrosis. Additional small bilateral nonobstructing renal stones. Cholelithiasis. Small fat-containing umbilical hernia. Renal Ultrasound 01/26/25 21:46 Impression: 1: Unremarkable renal ultrasound. No stones, masses or hydronephrosis. Abdomen X-Ray 01/27/25 09:54 IMPRESSION: Right double-J ureteral stent in place. Chest X-Ray 01/28/25 06:48 Impression: Clear lungs. Left subclavian line in place. Labs Labs: Laboratory Results - last 24 hr 01/30/25 04:25 WBC 11.7 H RBC 4.05 L Hgb 11.2 L Hct 35.0 L MCV 86.4 MCH 27.7 MCHC 32.0 RDW 13.7 Plt Count 137 L MPV 12.3 H Sodium 134 L Potassium 3.6 Chloride 104 Carbon Dioxide 22 Anion Gap 8 BUN 82 H Creatinine 7.91 H Estim Creat Clear Calc 11 Estimated GFR 7 L Glucose 105 Lactic Acid 0.5 L Calcium 8.1 L Phosphorus 4.3 Magnesium 2.5 H Total Bilirubin 0.5 AST 92 H ALT 55 H Alkaline Phosphatase 190 H Total Protein 5.8 L Albumin 2.9 L
[2025-01-30] MEDS: FUROSEMIDE INJ 40 MG/4 ML VIAL IV PUSH (21:23)
[2025-01-30] MEDS: cefTRIAXone 2 GM in SODIUM CHLORIDE 0.9% IV 100 ML 200 ML IVPB (21:24)
[2025-01-31] VITALS (11 sets, daily range): BP systolic 123–141; BP diastolic 66–88; PULSE 51–59; RESP 16–18; TEMP 36.2–36.8; O2SAT 98–99
[2025-01-31 05:19] LABS: Hematocrit 34.1 % (42.0-52.0); Hemoglobin 11.1 g/dL (14.0-18.0); Immature Granulocyte Percent A 2.0 % (0-0.5); Lymphocytes Absolute Auto 2.91 K/mm3 (0.9-3.2); Mean Corpuscular HGB Conc 32.6 g/dl (32-36); Mean Corpuscular Hemoglobin 27.8 pg (26-34); Mean Corpuscular Volume 85.3 fl (80-100); Nucleated Red Blood Cells Absolute Auto 0.000 K/mm3 (0.0-0.012); Nucleated Red Blood Cells Perc 0.0 % (0.0-0.2); Platelet Count Result 215 k/mm3 (150-375); Red Blood Count 4.00 M/mm3 (4.6-6.20); White Blood Count 13.2 K/mm3 (4.5-10.0)
[2025-01-31 05:44] LABS: Alanine Aminotransferase 64 U/L (6-50); Albumin Level 3.0 g/dL (3.5-5.1); Alkaline Phosphatase 183 U/L (38-126); Anion Gap 10 mmol/L (4-12); Aspartate Amino Transferase 94 U/L (17-59); Bilirubin,Total 0.4 mg/dL (0.2-1.3); Blood Urea Nitrogen 82 mg/dL (9-20); Calcium 8.4 mg/dL (8.4-10.2); Carbon Dioxide 21 mmol/L (22-30); Chloride 104 mmol/L (98-107); Estimated CRCL calculation 12 ml/min; Estimated Glomerular Filt Rate 8; Glucose 103 mg/dL (65-110); Magnesium 2.3 mg/dL (1.6-2.3); Potassium 3.7 mmol/L (3.4-5.0); Sodium 135 mmol/L (137-145); Total Protein 6.0 g/dL (6.3-8.2)
[2025-01-31] MEDS: ENOXAPARIN 30 MG/0.3 ML SYRINGE SUB-Q (08:42)
[2025-01-31] MEDS: METOPROLOL SUCCINATE EXT REL 25 MG TABCR PO (08:43)
[2025-01-31] MEDS: ISOSORBIDE MONONITRATE 15 MG TAB.ER.24H PO (08:43)
[2025-01-31] MEDS: oxyBUTYnin CHLORIDE XL 5 MG TAB.ER.24 10 MG PO (08:43)
[2025-01-31] MEDS: ROSUVASTATIN 20 MG TABLET 40 MG PO (08:43)
[2025-01-31] MEDS: PANTOPRAZOLE 40 MG TABLET PO (08:43)
[2025-01-31] MEDS: ASPIRIN 81 MG CHEWABLE TABLET PO (08:44)
--- NOTE | 2025-01-31 11:38 | P.PNNP_ITS ---
Progress Note: A&P Assessment and Plan (1) Acute kidney injury: Code(s): N17.9 - Acute kidney failure, unspecified Status: Acute Assessment and Plan: * slow improvement noted * as noted on admission * normal creatinine by last admission here in July 2024 * suspect due to ATN from several issues: * hypotension/hemodynamic instability * infection/sepsis (UTI + bacteremia) * obstruction (from nephrolithiasis) * prerenal factors (?) * other (?) * creatinine appears to have peaked/plateaued at 8.03mg/dL * evaluation to date: * admission CT imaging noted * renal ultrasound without obstruction * urine electrolytes non-prerenal * urine eosinophils negative * CPK normal * + proteinuria noted * follow trend of repeat labs and UOP (2) Septic shock: Code(s): A41.9 - Sepsis, unspecified organism; R65.21 - Severe sepsis with septic shock Status: Acute Assessment and Plan: * resolving * suspect due to UTI complicated by right ureteral stone and hydronephrosis * however, positive blood cultures noted as well... * weaned off levophed gtt on 01/25 * s/p bicarb IVF resuscitation * follow culture data * urine culture negative * blood cultures noted (see #3) * on antibiotics * follow trend of hemodynamics (3) Bacteremia: Code(s): R78.81 - Bacteremia Status: Acute Assessment and Plan: * as noted by blood cultures: * on 01/24 - Proteus mirabilis * on 01/25 - Proteus mirabilis * on antibiotics * follow repeat cultures (4) Metabolic acidosis: Code(s): E87.20 - Acidosis, unspecified Status: Acute Assessment and Plan: * resolving * due to RAJESH/ARF along with lactic acidosis * lactic acid has normalized * off bicarb IVFs as this time * follow CO2 levels (5) Urinary tract infection: Qualifiers: Hematuria presence: with hematuria Urinary tract infection type: acute cystitis Qualified Code(s): N30.01 - Acute cystitis with hematuria Code(s): N39.0 - Urinary tract infection, site not specified Status: Acute Assessment and Plan: * suspected based on UA on admission * follow urine culture results - negative to date * on antibiotics (6) Anemia: Code(s): D64.9 - Anemia, unspecified Status: Acute Assessment and Plan: * due to RAJESH with a component of dilution from IVFs * no need for CASIMIRO * follow trend of H/H (7) Nephrolithiasis: Code(s): N20.0 - Calculus of kidney Status: Acute Assessment and Plan: * as noted on admission imaging complicated by hydronephrosis * Urology following * s/p cystoscopy with right ureteral stent placement * further intervention with regard to right kidney stone to be done at a later date.... (8) Encephalopathy: Code(s): G93.40 - Encephalopathy, unspecified Status: Acute Assessment and Plan: * seems stable * per family, has some short memory issues * likely complicated by sepsis/infection and know history of leukodystrophy * head CT negative * normal TSH and ammonia * follow mentation Will continue to follow. L Subjective Date/time seen: 01/31/25 11:38 Interval history: Follow-up for acute kidney injury/acute renal failure. Increase urine output noted in response of IV lasix yesterday due to edema in LEs/feet with stability if not improvement in renal function/creatinine; mentation seems stable and appears in no apparent distress; no other issues/events overnight or earlier this morning. Exam 2 Narrative: General: WD/WN male in NAD Heart: normal S1 and S2; no rub Lungs: clear anteriorly; decreased at bases Abdomen: soft, nontender, nondistended, positive bowel sounds Extremities: no cyanosis or clubbing; trace edema Skin: warm and dry Objective Data Vital Signs Vital Signs: Vital Signs Temp Pulse Resp BP Pulse Ox O2 Del Method 01/31/25 08:45 53 L 01/31/25 08:45 52 L 99 Room Air 01/31/25 08:43 59 L 01/31/25 05:07 97.1 F L 53 L 18 141/84 H 99 01/31/25 04:00 51 L 01/31/25 00:00 58 L 01/30/25 21:20 98 F 58 L 16 146/86 H 98 01/30/25 21:00 62 01/30/25 20:45 95 Room Air 01/30/25 20:00 62 01/30/25 20:00 Room Air 01/30/25 16:00 56 L 01/30/25 16:00 97.2 F L 61 20 138/87 98 Intake/Output Intake/Output: Intake & Output 01/28/25 01/29/25 01/30/25 01/31/25 23:59 23:59 23:59 23:59 Intake Total 500 4896 716 390 Output Total 8348 6701 6252 1999 Balance -650 0486 -010 -9534 Meds/Results Medications: Active Medications Generic Name Dose Route Start Last Admin Trade Name Freq PRN Reason Stop Dose Admin Acetaminophen 650 mg 01/24/25 23:29 01/25/25 21:54 Acetaminophen 650 Mg Suppository RECTAL 650 mg Q6H PRN Administration Mild Pain (1-3) or Fever Acetaminophen 650 mg 01/25/25 04:57 01/25/25 15:55 Acetaminophen 325 Mg Tablet PO 650 mg Q4H PRN Administration Mild Pain (1-3) or Fever Aspirin 81 mg 01/27/25 09:00 01/31/25 08:44 Aspirin 81 Mg Chewable Tablet PO 81 mg DAILY PIETER Administration Baclofen 5 mg 01/27/25 10:20 Baclofen 5 Mg Tablet PO BID PRN Muscle Spasm Cyanocobalamin 1,000 mcg 01/29/25 09:00 01/29/25 09:03 Cyanocobalamin Inj 1,000 Mcg/Ml Vial SUB-Q 1,000 mcg MONTHLY PIETER Administration Enoxaparin Sodium 30 mg 01/25/25 09:00 01/31/25 08:42 Enoxaparin 30 Mg/0.3 Ml Syringe SUB-Q 30 mg DAILY PIETER Administration Furosemide 20 mg 01/27/25 09:00 01/28/25 09:06 Furosemide 20 Mg Tablet PO 20 mg On Hold: 01/28/25 17:31 QAM PIETER Administration Ceftriaxone Sodium 2 gm/ 100 mls @ 200 mls/hr 01/28/25 21:00 01/30/25 21:24 Sodium Chloride IVPB 200 mls/hr Q24H PIETER Administration Isosorbide Mononitrate 15 mg 01/27/25 09:00 01/31/25 08:43 Isosorbide Mononitrate 15 Mg Tab.Er.24h PO 15 mg DAILY PIETER Administration Metoprolol Succinate 25 mg 01/27/25 09:00 01/31/25 08:43 Metoprolol Succinate Ext Rel 25 Mg Tabcr PO 25 mg DAILY PIETER Administration Ondansetron HCl 4 mg 01/25/25 04:57 Ondansetron Inj 4 Mg/2 Ml Vial IV PUSH Q4H PRN Nausea Oxybutynin Chloride 10 mg 01/27/25 09:00 01/31/25 08:43 Oxybutynin Chloride Xl 5 Mg Tab.Er.24 PO 10 mg DAILY PIETER Administration Pantoprazole Sodium 40 mg 01/28/25 09:00 01/31/25 08:43 Pantoprazole 40 Mg Tablet PO 40 mg QAM PIETER Administration Polyethylene Glycol 17 gm 01/30/25 09:50 01/31/25 08:43 Polyethylene Glycol 3350 17 Gm Powd.Pack PO 17 gm QAM PIETER Administration Rosuvastatin Calcium 40 mg 01/27/25 09:00 01/31/25 08:43 Rosuvastatin 20 Mg Tablet PO 40 mg DAILY PIETER Administration Sodium Chloride 20 ml 01/25/25 06:42 Central Line Flush IV PUSH PRN PRN after blood draws Radiology Results: ITS Impressions Head CT 01/25/25 08:55 Impression: No intracranial hemorrhage, mass, or acute infarct. Atrophy and chronic white matter changes, as above. Chest/Abdomen/Pelvis CT 01/25/25 08:58 Impression: 14 mm proximal right ureteral stone with mild right hydronephrosis. Additional small bilateral nonobstructing renal stones. Cholelithiasis. Small fat-containing umbilical hernia. Renal Ultrasound 01/26/25 21:46 Impression: 1: Unremarkable renal ultrasound. No stones, masses or hydronephrosis. Abdomen X-Ray 01/27/25 09:54 IMPRESSION: Right double-J ureteral stent in place. Chest X-Ray 01/28/25 06:48 Impression: Clear lungs. Left subclavian line in place. Labs Labs: Laboratory Tests 01/31/25 05:06 01/31/25 05:06 Calcium 8.4 Magnesium 2.3 Total Bilirubin 0.4 AST 94 H ALT 64 H Alkaline Phosphatase 183 H Total Protein 6.0 L Albumin 3.0 L
--- NOTE | 2025-01-31 13:53 | PM.IMPN ---
Progress Note: A&P Assessment and Plan (1) Septic shock: Code(s): A41.9 - Sepsis, unspecified organism; R65.21 - Severe sepsis with septic shock Status: Acute (2) Abnormal urinalysis: Code(s): R82.90 - Unspecified abnormal findings in urine Status: Acute Assessment and Plan: Patient was in septic shock likely secondary to urinary tract infection-off Levophed, hemodynamically stable, off IV fluid, medical with tele UA shows 2+ leukocyte is trace more than 100 WBC in the urine CT abdomen and pelvis shows cystitis and or changes due to prostatomegaly and right renal pelvis 1.2 cm stone with mild hydronephrosis Continue ceftriaxone (3) Acute kidney injury: Code(s): N17.9 - Acute kidney failure, unspecified Status: Acute Assessment and Plan: Likely secondary to septic shock On admission, creatinine 2.71, today 7.91 Nephrology is following, appreciate recs (4) Leukodystrophy: Onset Date: ~06/2021 Code(s): G31.80 - Leukodystrophy, unspecified Status: Acute (5) Overactive bladder: Code(s): N32.81 - Overactive bladder Status: Acute (6) Lactic acidosis: Code(s): E87.20 - Acidosis, unspecified Status: Acute Assessment and Plan: Lactic acid normalized (7) Chronic constipation: Code(s): K59.09 - Other constipation Status: Acute Assessment and Plan: MiraLax p.r.n. (8) Hydronephrosis: Qualifiers: Hydronephrosis type: with ureteral calculous obstruction Qualified Code(s): N13.2 - Hydronephrosis with renal and ureteral calculous obstruction Code(s): N13.30 - Unspecified hydronephrosis Status: Acute Assessment and Plan: Likely secondary to left kidney stone Status post cystoscopy, right 3 GERD, right stent placement 4.8 Sinhala 01/25/2025 by urology Plan for definitive to outpatient stone treatment and stent management (9) Edema of both feet: Code(s): R60.0 - Localized edema Status: Acute Assessment and Plan: Likely secondary to IV fluid 2D echo 03/14/2024 shows EF 55-60%, normal left ventricle systolic function, suspected diastolic function abnormal at that point On clinical exam there is no sign of cardiac dysfunction Feet edema is better today (10) Physical deconditioning: Code(s): R53.81 - Other malaise Status: Acute Assessment and Plan: Likely secondary to multifactorial etiology: Acute illness/immobility Physical therapy Dietary consult, to increase his oral intake Plan On exam patient looks edematous on the feet Kidney function is better today CMP tomorrow Subjective Date/time seen: 01/31/25 13:54 Interval history: Increased urine output overnight likely secondary to Lasix challenge. Creatinine improves. Mentation is the same. Right leg weakness-no change compared to yesterday. He is more conversant today than yesterday. Afebrile and hemodynamically stable. Objective Data Vital Signs Vital Signs: Vital Signs - 24 hr 01/30/25 16:00 01/30/25 16:00 01/30/25 20:00 Temperature 36.2 C L Pulse Rate 61 56 L Respiratory Rate 20 Blood Pressure 138/87 Pulse Oximetry 98 Oxygen Delivery Room Air 01/30/25 20:00 01/30/25 20:45 01/30/25 21:00 Temperature Pulse Rate 62 62 Respiratory Rate Blood Pressure Pulse Oximetry 95 Oxygen Delivery Room Air 01/30/25 21:20 01/31/25 00:00 01/31/25 04:00 Temperature 36.6 C Pulse Rate 58 L 58 L 51 L Respiratory Rate 16 Blood Pressure 146/86 H Pulse Oximetry 98 Oxygen Delivery 01/31/25 05:07 01/31/25 08:43 01/31/25 08:45 Temperature 36.2 C L Pulse Rate 53 L 59 L 52 L Respiratory Rate 18 Blood Pressure 141/84 H Pulse Oximetry 99 99 Oxygen Delivery Room Air 01/31/25 08:45 01/31/25 12:00 Temperature Pulse Rate 53 L 51 L Respiratory Rate Blood Pressure Pulse Oximetry Oxygen Delivery Intake/Output Intake/Output: Intake & Output 01/28/25 01/29/25 01/30/25 01/31/25 23:59 23:59 23:59 23:59 Intake Total 500 3056 716 630 Output Total 1150 1700 1275 1999 Balance -650 2535 -249 -7447 Meds/Results Medications: Active Medications Generic Name Dose Route Start Last Admin Trade Name Freq PRN Reason Stop Dose Admin Acetaminophen 650 mg 01/24/25 23:29 01/25/25 21:54 Acetaminophen 650 Mg Suppository RECTAL 650 mg Q6H PRN Administration Mild Pain (1-3) or Fever Acetaminophen 650 mg 01/25/25 04:57 01/25/25 15:55 Acetaminophen 325 Mg Tablet PO 650 mg Q4H PRN Administration Mild Pain (1-3) or Fever Aspirin 81 mg 01/27/25 09:00 01/31/25 08:44 Aspirin 81 Mg Chewable Tablet PO 81 mg DAILY PIETER Administration Baclofen 5 mg 01/27/25 10:20 Baclofen 5 Mg Tablet PO BID PRN Muscle Spasm Cyanocobalamin 1,000 mcg 01/29/25 09:00 01/29/25 09:03 Cyanocobalamin Inj 1,000 Mcg/Ml Vial SUB-Q 1,000 mcg MONTHLY PIETER Administration Enoxaparin Sodium 30 mg 01/25/25 09:00 01/31/25 08:42 Enoxaparin 30 Mg/0.3 Ml Syringe SUB-Q 30 mg DAILY PIETER Administration Furosemide 20 mg 01/27/25 09:00 01/28/25 09:06 Furosemide 20 Mg Tablet PO 20 mg On Hold: 01/28/25 17:31 QAM PIETER Administration Ceftriaxone Sodium 2 gm/ 100 mls @ 200 mls/hr 01/28/25 21:00 01/30/25 21:24 Sodium Chloride IVPB 200 mls/hr Q24H PIETER Administration Isosorbide Mononitrate 15 mg 01/27/25 09:00 01/31/25 08:43 Isosorbide Mononitrate 15 Mg Tab.Er.24h PO 15 mg DAILY PIETER Administration Metoprolol Succinate 25 mg 01/27/25 09:00 01/31/25 08:43 Metoprolol Succinate Ext Rel 25 Mg Tabcr PO 25 mg DAILY PIETER Administration Ondansetron HCl 4 mg 01/25/25 04:57 Ondansetron Inj 4 Mg/2 Ml Vial IV PUSH Q4H PRN Nausea Oxybutynin Chloride 10 mg 01/27/25 09:00 01/31/25 08:43 Oxybutynin Chloride Xl 5 Mg Tab.Er.24 PO 10 mg DAILY PIETER Administration Pantoprazole Sodium 40 mg 01/28/25 09:00 01/31/25 08:43 Pantoprazole 40 Mg Tablet PO 40 mg QAM PIETER Administration Polyethylene Glycol 17 gm 01/30/25 09:50 01/31/25 08:43 Polyethylene Glycol 3350 17 Gm Powd.Pack PO 17 gm QAM PIETER Administration Rosuvastatin Calcium 40 mg 01/27/25 09:00 01/31/25 08:43 Rosuvastatin 20 Mg Tablet PO 40 mg DAILY PIETER Administration Sodium Chloride 20 ml 01/25/25 06:42 Central Line Flush IV PUSH PRN PRN after blood draws Radiology Results: ITS Impressions Head CT 01/25/25 08:55 Impression: No intracranial hemorrhage, mass, or acute infarct. Atrophy and chronic white matter changes, as above. Chest/Abdomen/Pelvis CT 01/25/25 08:58 Impression: 14 mm proximal right ureteral stone with mild right hydronephrosis. Additional small bilateral nonobstructing renal stones. Cholelithiasis. Small fat-containing umbilical hernia. Renal Ultrasound 01/26/25 21:46 Impression: 1: Unremarkable renal ultrasound. No stones, masses or hydronephrosis. Abdomen X-Ray 01/27/25 09:54 IMPRESSION: Right double-J ureteral stent in place. Chest X-Ray 01/28/25 06:48 Impression: Clear lungs. Left subclavian line in place. Labs Labs: Laboratory Results - last 24 hr 01/31/25 05:06 WBC 13.2 H RBC 4.00 L Hgb 11.1 L Hct 34.1 L MCV 85.3 MCH 27.8 MCHC 32.6 RDW 13.3 Plt Count 215 D MPV 12.0 H Immature Gran % (Auto) 2.0 H Neut % (Auto) 62.3 Lymph % (Auto) 22.1 [place] % (Auto) 9.0 H Eos % (Auto) 4.3 Baso % (Auto) 0.3 Lymph # (Auto) 2.91 [place] # (Auto) 1.2 H Eos # (Auto) 0.6 H Baso # (Auto) 0.0 Abs Immat Gran (auto) 0.26 H Absolute Neuts (auto) 8.2 H Absolute Nucleated RBC 0.000 Nucleated RBC % 0.0 Sodium 135 L Potassium 3.7 Chloride 104 Carbon Dioxide 21 L Anion Gap 10 BUN 82 H Creatinine 7.45 H Estim Creat Clear Calc 12 Estimated GFR 8 L Glucose 103 Calcium 8.4 Magnesium 2.3 Total Bilirubin 0.4 AST 94 H ALT 64 H Alkaline Phosphatase 183 H Total Protein 6.0 L Albumin 3.0 L
[2025-01-31] MEDS: cefTRIAXone 2 GM in SODIUM CHLORIDE 0.9% IV 100 ML 200 ML IVPB (20:17)
[2025-02-01] VITALS (11 sets, daily range): BP systolic 127–140; BP diastolic 64–76; PULSE 49–87; RESP 16–20; TEMP 36.2–36.5; O2SAT 90–100
[2025-02-01 06:06] LABS: Hematocrit 33.3 % (42.0-52.0); Hemoglobin 10.8 g/dL (14.0-18.0); Immature Granulocyte Percent A 1.4 % (0-0.5); Lymphocytes Absolute Auto 2.74 K/mm3 (0.9-3.2); Mean Corpuscular HGB Conc 32.4 g/dl (32-36); Mean Corpuscular Hemoglobin 27.8 pg (26-34); Mean Corpuscular Volume 85.8 fl (80-100); Nucleated Red Blood Cells Absolute Auto 0.000 K/mm3 (0.0-0.012); Nucleated Red Blood Cells Perc 0.0 % (0.0-0.2); Platelet Count Result 281 k/mm3 (150-375); Red Blood Count 3.88 M/mm3 (4.6-6.20); White Blood Count 14.0 K/mm3 (4.5-10.0)
[2025-02-01 06:10] LABS: Alanine Aminotransferase 61 U/L (6-50); Albumin Level 2.9 g/dL (3.5-5.1); Alkaline Phosphatase 176 U/L (38-126); Anion Gap 10 mmol/L (4-12); Aspartate Amino Transferase 73 U/L (17-59); Bilirubin,Total 0.3 mg/dL (0.2-1.3); Blood Urea Nitrogen 79 mg/dL (9-20); Calcium 8.1 mg/dL (8.4-10.2); Carbon Dioxide 22 mmol/L (22-30); Chloride 103 mmol/L (98-107); Estimated CRCL calculation 12 ml/min; Estimated Glomerular Filt Rate 8; Glucose 148 mg/dL (65-110); Potassium 3.6 mmol/L (3.4-5.0); Sodium 135 mmol/L (137-145); Total Protein 5.9 g/dL (6.3-8.2)
--- NOTE | 2025-02-01 09:24 | PCNWS ---
Weekly nutritional screen. Patient is tolerating current Heart healthy diet with adequate intake, 5-100%, mostly 50-90%. No weight loss reported. No nutritional needs at this time.
[2025-02-01] MEDS: PANTOPRAZOLE 40 MG TABLET PO (10:02)
[2025-02-01] MEDS: ROSUVASTATIN 20 MG TABLET 40 MG PO (10:02)
[2025-02-01] MEDS: ENOXAPARIN 30 MG/0.3 ML SYRINGE SUB-Q (10:02)
[2025-02-01] MEDS: ASPIRIN 81 MG CHEWABLE TABLET PO (10:03)
[2025-02-01] MEDS: ISOSORBIDE MONONITRATE 15 MG TAB.ER.24H PO (10:03)
[2025-02-01] MEDS: oxyBUTYnin CHLORIDE XL 5 MG TAB.ER.24 10 MG PO (10:03)
--- NOTE | 2025-02-01 10:47 | P.PNNP_ITS ---
Progress Note: A&P Assessment and Plan (1) Acute kidney injury: Code(s): N17.9 - Acute kidney failure, unspecified Status: Acute Assessment and Plan: * slow improvement noted * as noted on admission * normal creatinine by last admission here in July 2024 * suspect due to ATN from several issues: * hypotension/hemodynamic instability * infection/sepsis (UTI + bacteremia) * obstruction (from nephrolithiasis) * prerenal factors (?) * other (?) * creatinine appears to have peaked/plateaued at 8.03mg/dL * evaluation to date: * admission CT imaging noted * renal ultrasound without obstruction * urine electrolytes non-prerenal * urine eosinophils negative * CPK normal * + proteinuria noted * possible new baseline creatinine given the severity of this insult(?) * follow trend of repeat labs and UOP (2) Septic shock: Code(s): A41.9 - Sepsis, unspecified organism; R65.21 - Severe sepsis with septic shock Status: Acute Assessment and Plan: * resolving * suspect due to UTI complicated by right ureteral stone and hydronephrosis * however, positive blood cultures noted as well... * weaned off levophed gtt on 01/25 * s/p bicarb IVF resuscitation * follow culture data * urine culture negative * blood cultures noted (see #3) * on antibiotics * follow trend of hemodynamics (3) Bacteremia: Code(s): R78.81 - Bacteremia Status: Acute Assessment and Plan: * as noted by blood cultures: * on 01/24 - Proteus mirabilis * on 01/25 - Proteus mirabilis * on antibiotics * follow repeat cultures (4) Metabolic acidosis: Code(s): E87.20 - Acidosis, unspecified Status: Acute Assessment and Plan: * resolved * due to RAJESH/ARF along with lactic acidosis * lactic acid has normalized * off bicarb IVFs as this time * follow CO2 levels (5) Urinary tract infection: Qualifiers: Hematuria presence: with hematuria Urinary tract infection type: acute cystitis Qualified Code(s): N30.01 - Acute cystitis with hematuria Code(s): N39.0 - Urinary tract infection, site not specified Status: Acute Assessment and Plan: * suspected based on UA on admission * follow urine culture results - negative to date * on antibiotics (6) Anemia: Code(s): D64.9 - Anemia, unspecified Status: Acute Assessment and Plan: * due to RAJESH with a component of dilution from IVFs * no need for CASIMIRO * follow trend of H/H (7) Nephrolithiasis: Code(s): N20.0 - Calculus of kidney Status: Acute Assessment and Plan: * as noted on admission imaging complicated by hydronephrosis * Urology following * s/p cystoscopy with right ureteral stent placement * further intervention with regard to right kidney stone to be done at a later date.... (8) Encephalopathy: Code(s): G93.40 - Encephalopathy, unspecified Status: Acute Assessment and Plan: * seems stable * per family, has some short memory issues * likely complicated by sepsis/infection and know history of leukodystrophy * head CT negative * normal TSH and ammonia * follow mentation Will continue to follow. L Subjective Date/time seen: 02/01/25 10:47 Interval history: Follow-up for acute kidney injury/acute renal failure. No apparent distress noted at the time of my visit; mentation seems stable if not a tad better; renal function/creatinine stable in the last 24 hours with reasonable urine output noted; no other issues/events overnight or earlier this morning. Exam 2 Narrative: General: WD/WN male in NAD Heart: normal S1 and S2; no rub Lungs: clear anteriorly; decreased at bases Abdomen: soft, nontender, nondistended, positive bowel sounds Extremities: no cyanosis or clubbing; trace edema Skin: warm and intct Objective Data Vital Signs Vital Signs: Vital Signs Temp Pulse Resp BP Pulse Ox O2 Del Method FiO2 02/01/25 10:04 49 L 02/01/25 10:00 49 L 02/01/25 10:00 Room Air 21 02/01/25 06:00 97.2 F L 51 L 18 140/76 99 02/01/25 04:00 55 L 02/01/25 00:00 59 L 01/31/25 22:27 97.9 F 56 L 18 125/88 98 01/31/25 20:00 57 L 01/31/25 19:55 98 Room Air 01/31/25 16:00 52 L 01/31/25 14:00 98.2 F 51 L 16 123/66 99 Intake/Output Intake/Output: Intake & Output 01/29/25 01/30/25 01/31/2502/01/25 23:59 23:59 23:59 23:59 Intake Total 3050 816 1750 860 Output Total 8182 5096 5599 1800 Balance 1132 -500 -8021 -432 Meds/Results Medications: Active Medications Generic Name Dose Route Start Last Admin Trade Name Freq PRN Reason Stop Dose Admin Acetaminophen 650 mg 01/24/25 23:29 01/25/25 21:54 Acetaminophen 650 Mg Suppository RECTAL 650 mg Q6H PRN Administration Mild Pain (1-3) or Fever Acetaminophen 650 mg 01/25/25 04:57 01/25/25 15:55 Acetaminophen 325 Mg Tablet PO 650 mg Q4H PRN Administration Mild Pain (1-3) or Fever Aspirin 81 mg 01/27/25 09:00 02/01/25 10:03 Aspirin 81 Mg Chewable Tablet PO 81 mg DAILY PIETER Administration Baclofen 5 mg 01/27/25 10:20 Baclofen 5 Mg Tablet PO BID PRN Muscle Spasm Cyanocobalamin 1,000 mcg 01/29/25 09:00 01/29/25 09:03 Cyanocobalamin Inj 1,000 Mcg/Ml Vial SUB-Q 1,000 mcg MONTHLY PIETER Administration Enoxaparin Sodium 30 mg 01/25/25 09:00 02/01/25 10:02 Enoxaparin 30 Mg/0.3 Ml Syringe SUB-Q 30 mg DAILY PIETER Administration Furosemide 20 mg 01/27/25 09:00 01/28/25 09:06 Furosemide 20 Mg Tablet PO 20 mg On Hold: 01/31/25 14:05 QAM PIETER Administration Ceftriaxone Sodium 2 gm/ 100 mls @ 200 mls/hr 01/28/25 21:00 01/31/25 20:17 Sodium Chloride IVPB 02/03/25 21:29 200 mls/hr Q24H PIETER Administration Isosorbide Mononitrate 15 mg 01/27/25 09:00 02/01/25 10:03 Isosorbide Mononitrate 15 Mg Tab.Er.24h PO 15 mg DAILY PIETER Administration Metoprolol Succinate 25 mg 01/27/25 09:00 02/01/25 10:04 Metoprolol Succinate Ext Rel 25 Mg Tabcr PO Not Given DAILY PIETER Ondansetron HCl 4 mg 01/25/25 04:57 Ondansetron Inj 4 Mg/2 Ml Vial IV PUSH Q4H PRN Nausea Oxybutynin Chloride 10 mg 01/27/25 09:00 02/01/25 10:03 Oxybutynin Chloride Xl 5 Mg Tab.Er.24 PO 10 mg DAILY PIETER Administration Pantoprazole Sodium 40 mg 01/28/25 09:00 02/01/25 10:02 Pantoprazole 40 Mg Tablet PO 40 mg QAM PIETER Administration Polyethylene Glycol 17 gm 01/30/25 09:50 02/01/25 10:02 Polyethylene Glycol 3350 17 Gm Powd.Pack PO 17 gm QAM PIETER Administration Rosuvastatin Calcium 40 mg 01/27/25 09:00 02/01/25 10:02 Rosuvastatin 20 Mg Tablet PO 40 mg DAILY PIETER Administration Sodium Chloride 20 ml 01/25/25 06:42 Central Line Flush IV PUSH PRN PRN after blood draws Radiology Results: ITS Impressions Head CT 01/25/25 08:55 Impression: No intracranial hemorrhage, mass, or acute infarct. Atrophy and chronic white matter changes, as above. Chest/Abdomen/Pelvis CT 01/25/25 08:58 Impression: 14 mm proximal right ureteral stone with mild right hydronephrosis. Additional small bilateral nonobstructing renal stones. Cholelithiasis. Small fat-containing umbilical hernia. Renal Ultrasound 01/26/25 21:46 Impression: 1: Unremarkable renal ultrasound. No stones, masses or hydronephrosis. Abdomen X-Ray 01/27/25 09:54 IMPRESSION: Right double-J ureteral stent in place. Chest X-Ray 01/28/25 06:48 Impression: Clear lungs. Left subclavian line in place. Labs Labs: Laboratory Tests 02/01/25 05:34 02/01/25 05:34 Calcium 8.1 L Total Bilirubin 0.3 AST 73 H ALT 61 H Alkaline Phosphatase 176 H Total Protein 5.9 L Albumin 2.9 L
--- NOTE | 2025-02-01 14:21 | PCOTNOTE ---
Patient unavailable for OT session this P.M. Patient going down for testing in bed at this time.
--- NOTE | 2025-02-01 17:05 | PM.IMPN ---
Progress Note: A&P Assessment and Plan (1) Septic shock: Code(s): A41.9 - Sepsis, unspecified organism; R65.21 - Severe sepsis with septic shock Status: Acute (2) Abnormal urinalysis: Code(s): R82.90 - Unspecified abnormal findings in urine Status: Acute Assessment and Plan: Patient was in septic shock likely secondary to urinary tract infection-off Levophed, hemodynamically stable, off IV fluid, medical with tele UA shows 2+ leukocyte is trace more than 100 WBC in the urine CT abdomen and pelvis shows cystitis and or changes due to prostatomegaly and right renal pelvis 1.2 cm stone with mild hydronephrosis Continue ceftriaxone to complete 10 days of antibiotics Leukocytes is up trending but he is afebrile, hemodynamically stable, did not think he has infected. (3) Acute kidney injury: Code(s): N17.9 - Acute kidney failure, unspecified Status: Acute Assessment and Plan: Likely secondary to septic shock On admission, creatinine 2.71, today 7.91 Nephrology is following, appreciate recs Kidney function is improving, has adequate urine output (4) Leukodystrophy: Onset Date: ~06/2021 Code(s): G31.80 - Leukodystrophy, unspecified Status: Acute (5) Overactive bladder: Code(s): N32.81 - Overactive bladder Status: Acute (6) Lactic acidosis: Code(s): E87.20 - Acidosis, unspecified Status: Acute Assessment and Plan: Lactic acid normalized (7) Chronic constipation: Code(s): K59.09 - Other constipation Status: Acute Assessment and Plan: MiraLax p.r.n. (8) Hydronephrosis: Qualifiers: Hydronephrosis type: with ureteral calculous obstruction Qualified Code(s): N13.2 - Hydronephrosis with renal and ureteral calculous obstruction Code(s): N13.30 - Unspecified hydronephrosis Status: Acute Assessment and Plan: Likely secondary to left kidney stone Status post cystoscopy, right 3 GERD, right stent placement 4.8 [place] 01/25/2025 by urology Plan for definitive to outpatient stone treatment and stent management (9) Edema of both feet: Code(s): R60.0 - Localized edema Status: Acute Assessment and Plan: Likely secondary to IV fluid 2D echo 03/14/2024 shows EF 55-60%, normal left ventricle systolic function, suspected diastolic function abnormal at that point On clinical exam there is no sign of cardiac dysfunction Feet edema is better today (10) Physical deconditioning: Code(s): R53.81 - Other malaise Status: Acute Assessment and Plan: Likely secondary to multifactorial etiology: Acute illness/immobility Physical therapy Dietary consult, to increase his oral intake Plan Physical therapy, and pending placement Kidney function is better today CMP tomorrow Subjective Date/time seen: 02/01/25 17:05 Interval history: No change compared to yesterday. He is conversant. No fever overnight or chills. He did not have a movement for a while. KUB obtained and did not show stool impaction. Exam Narrative: Patient is comfortable, NAD HEENT: eyes are clear and none icteric LUNGS:CTA HEART: RR S1S2 ABD: BS+, Soft and nontender Lower extremities: no edema SKIN: nonjaundiced Neuro: grossly intact. Objective Data Vital Signs Vital Signs: Vital Signs - 24 hr 01/31/25 19:55 01/31/25 20:00 01/31/25 22:27 Temperature 36.6 C Pulse Rate 57 L 56 L Respiratory Rate 18 Blood Pressure 125/88 Pulse Oximetry 98 98 Oxygen Delivery Room Air Fraction of Inspired Oxygen 02/01/25 00:00 02/01/25 04:00 02/01/25 06:00 Temperature 36.2 C L Pulse Rate 59 L 55 L 51 L Respiratory Rate 18 Blood Pressure 140/76 Pulse Oximetry 99 Oxygen Delivery Fraction of Inspired Oxygen 02/01/25 10:00 02/01/25 10:00 02/01/25 10:04 Temperature Pulse Rate 49 L 49 L Respiratory Rate Blood Pressure Pulse Oximetry Oxygen Delivery Room Air Fraction of Inspired Oxygen 21 02/01/25 12:00 02/01/25 13:35 Temperature 36.5 C Pulse Rate 61 51 L Respiratory Rate 16 Blood Pressure 127/71 Pulse Oximetry 100 Oxygen Delivery Fraction of Inspired Oxygen Intake/Output Intake/Output: Intake & Output 01/29/25 01/30/25 01/31/25 02/01/25 23:59 23:59 23:59 23:59 Intake Total 3056 816 1750 1100 Output Total 1700 1275 3200 2200 Balance 1356 -459 -[phone] -4247 Meds/Results Medications: Active Medications Generic Name Dose Route Start Last Admin Trade Name Freq PRN Reason Stop Dose Admin Acetaminophen 650 mg 01/24/25 23:29 01/25/25 21:54 Acetaminophen 650 Mg Suppository RECTAL 650 mg Q6H PRN Administration Mild Pain (1-3) or Fever Acetaminophen 650 mg 01/25/25 04:57 01/25/25 15:55 Acetaminophen 325 Mg Tablet PO 650 mg Q4H PRN Administration Mild Pain (1-3) or Fever Aspirin 81 mg 01/27/25 09:00 02/01/25 10:03 Aspirin 81 Mg Chewable Tablet PO 81 mg DAILY PIETER Administration Baclofen 5 mg 01/27/25 10:20 Baclofen 5 Mg Tablet PO BID PRN Muscle Spasm Cyanocobalamin 1,000 mcg 01/29/25 09:00 01/29/25 09:03 Cyanocobalamin Inj 1,000 Mcg/Ml Vial SUB-Q 1,000 mcg MONTHLY PIETER Administration Enoxaparin Sodium 30 mg 01/25/25 09:00 02/01/25 10:02 Enoxaparin 30 Mg/0.3 Ml Syringe SUB-Q 30 mg DAILY PIETER Administration Furosemide 20 mg 01/27/25 09:00 01/28/25 09:06 Furosemide 20 Mg Tablet PO 20 mg On Hold: 01/31/25 14:05 QAM PIETER Administration Ceftriaxone Sodium 2 gm/ 100 mls @ 200 mls/hr 01/28/25 21:00 01/31/25 20:17 Sodium Chloride IVPB 02/03/25 21:29 200 mls/hr Q24H PIETER Administration Isosorbide Mononitrate 15 mg 01/27/25 09:00 02/01/25 10:03 Isosorbide Mononitrate 15 Mg Tab.Er.24h PO 15 mg DAILY PIETER Administration Metoprolol Succinate 25 mg 01/27/25 09:00 02/01/25 10:04 Metoprolol Succinate Ext Rel 25 Mg Tabcr PO Not Given DAILY [facility]ER Ondansetron HCl 4 mg 01/25/25 04:57 Ondansetron Inj 4 Mg/2 Ml Vial IV PUSH Q4H PRN Nausea Oxybutynin Chloride 10 mg 01/27/25 09:00 02/01/25 10:03 Oxybutynin Chloride Xl 5 Mg Tab.Er.24 PO 10 mg DAILY PIETER Administration Pantoprazole Sodium 40 mg 01/28/25 09:00 02/01/25 10:02 Pantoprazole 40 Mg Tablet PO 40 mg QAM PIETER Administration Polyethylene Glycol 17 gm 01/30/25 09:50 02/01/25 10:02 Polyethylene Glycol 3350 17 Gm Powd.Pack PO 17 gm QAM PIETER Administration Rosuvastatin Calcium 40 mg 01/27/25 09:00 02/01/25 10:02 Rosuvastatin 20 Mg Tablet PO 40 mg DAILY PIETER Administration Sodium Chloride 20 ml 01/25/25 06:42 Central Line Flush IV PUSH PRN PRN after blood draws Radiology Results: ITS Impressions Head CT 01/25/25 08:55 Impression: No intracranial hemorrhage, mass, or acute infarct. Atrophy and chronic white matter changes, as above. Chest/Abdomen/Pelvis CT 01/25/25 08:58 Impression: 14 mm proximal right ureteral stone with mild right hydronephrosis. Additional small bilateral nonobstructing renal stones. Cholelithiasis. Small fat-containing umbilical hernia. Renal Ultrasound 01/26/25 21:46 Impression: 1: Unremarkable renal ultrasound. No stones, masses or hydronephrosis. Chest X-Ray 01/28/25 06:48 Impression: Clear lungs. Left subclavian line in place. Abdomen X-Ray 02/01/25 14:42 IMPRESSION: 1: No acute abdominal abnormality identified. Labs Labs: Laboratory Results - last 24 hr 02/01/25 05:34 WBC 14.0 H RBC 3.88 L Hgb 10.8 L Hct 33.3 L MCV 85.8 MCH 27.8 MCHC 32.4 RDW 13.4 Plt Count 281 MPV 11.8 H Immature Gran % (Auto) 1.4 H Neut % (Auto) 68.9 Lymph % (Auto) 19.6 [place] % (Auto) 6.9 Eos % (Auto) 2.9 Baso % (Auto) 0.3 Lymph # (Auto) 2.74 [place] # (Auto) 1.0 H Eos # (Auto) 0.4 H Baso # (Auto) 0.0 Abs Immat Gran (auto) 0.19 H Absolute Neuts (auto) 9.6 H Absolute Nucleated RBC 0.000 Nucleated RBC % 0.0 Sodium 135 L Potassium 3.6 Chloride 103 Carbon Dioxide 22 Anion Gap 10 BUN 79 H Creatinine 7.45 H Estim Creat Clear Calc 12 Estimated GFR 8 L Glucose 148 H Calcium 8.1 L Total Bilirubin 0.3 AST 73 H ALT 61 H Alkaline Phosphatase 176 H Total Protein 5.9 L Albumin 2.9 L
[2025-02-01] MEDS: cefTRIAXone 2 GM in SODIUM CHLORIDE 0.9% IV 100 ML 200 ML IVPB (21:16)
[2025-02-02] VITALS (10 sets, daily range): BP systolic 130–150; BP diastolic 57–84; PULSE 52–63; RESP 14–20; TEMP 36.1–36.7; O2SAT 97–99
[2025-02-02 05:32] LABS: Hematocrit 35.7 % (42.0-52.0); Hemoglobin 11.6 g/dL (14.0-18.0); Immature Granulocyte Percent A 1.3 % (0-0.5); Lymphocytes Absolute Auto 3.17 K/mm3 (0.9-3.2); Mean Corpuscular HGB Conc 32.5 g/dl (32-36); Mean Corpuscular Hemoglobin 27.8 pg (26-34); Mean Corpuscular Volume 85.6 fl (80-100); Nucleated Red Blood Cells Absolute Auto 0.000 K/mm3 (0.0-0.012); Nucleated Red Blood Cells Perc 0.0 % (0.0-0.2); Platelet Count Result 364 k/mm3 (150-375); Red Blood Count 4.17 M/mm3 (4.6-6.20); White Blood Count 15.4 K/mm3 (4.5-10.0)
[2025-02-02 05:47] LABS: Alanine Aminotransferase 67 U/L (6-50); Albumin Level 3.3 g/dL (3.5-5.1); Alkaline Phosphatase 186 U/L (38-126); Anion Gap 9 mmol/L (4-12); Aspartate Amino Transferase 79 U/L (17-59); Bilirubin,Total 0.4 mg/dL (0.2-1.3); Blood Urea Nitrogen 75 mg/dL (9-20); Calcium 8.6 mg/dL (8.4-10.2); Carbon Dioxide 23 mmol/L (22-30); Chloride 105 mmol/L (98-107); Estimated CRCL calculation 13 ml/min; Estimated Glomerular Filt Rate 8; Glucose 113 mg/dL (65-110); Potassium 4.2 mmol/L (3.4-5.0); Sodium 137 mmol/L (137-145); Total Protein 6.5 g/dL (6.3-8.2)
--- NOTE | 2025-02-02 09:20 | PM.IMPN ---
Progress Note: A&P Assessment and Plan (1) Septic shock: Code(s): A41.9 - Sepsis, unspecified organism; R65.21 - Severe sepsis with septic shock Status: Acute (2) Abnormal urinalysis: Code(s): R82.90 - Unspecified abnormal findings in urine Status: Acute Assessment and Plan: Patient was in septic shock likely secondary to urinary tract infection-off Levophed, hemodynamically stable, off IV fluid, medical with tele UA shows 2+ leukocyte is trace more than 100 WBC in the urine CT abdomen and pelvis shows cystitis and or changes due to prostatomegaly and right renal pelvis 1.2 cm stone with mild hydronephrosis Continue ceftriaxone to complete 10 days of antibiotics Leukocytes is up trending but he is afebrile, hemodynamically stable, did not think he has infected. (3) Acute kidney injury: Code(s): N17.9 - Acute kidney failure, unspecified Status: Acute Assessment and Plan: Likely secondary to septic shock On admission, creatinine 2.71, today 7.91 Nephrology is following, appreciate recs Kidney function is improving, has adequate urine output (4) Leukodystrophy: Onset Date: ~06/2021 Code(s): G31.80 - Leukodystrophy, unspecified Status: Acute (5) Overactive bladder: Code(s): N32.81 - Overactive bladder Status: Acute (6) Lactic acidosis: Code(s): E87.20 - Acidosis, unspecified Status: Acute Assessment and Plan: Lactic acid normalized (7) Chronic constipation: Code(s): K59.09 - Other constipation Status: Acute Assessment and Plan: MiraLax p.r.n. (8) Hydronephrosis: Qualifiers: Hydronephrosis type: with ureteral calculous obstruction Qualified Code(s): N13.2 - Hydronephrosis with renal and ureteral calculous obstruction Code(s): N13.30 - Unspecified hydronephrosis Status: Acute Assessment and Plan: Likely secondary to left kidney stone Status post cystoscopy, right 3 GERD, right stent placement 4.8 [place] 01/25/2025 by urology Plan for definitive to outpatient stone treatment and stent management (9) Edema of both feet: Code(s): R60.0 - Localized edema Status: Acute Assessment and Plan: Likely secondary to IV fluid 2D echo 03/14/2024 shows EF 55-60%, normal left ventricle systolic function, suspected diastolic function abnormal at that point On clinical exam there is no sign of cardiac dysfunction Feet edema is better today (10) Physical deconditioning: Code(s): R53.81 - Other malaise Status: Acute Assessment and Plan: Likely secondary to multifactorial etiology: Acute illness/immobility Physical therapy Dietary consult, to increase his oral intake Plan Physical therapy, and pending placement Kidney function is better today CMP tomorrow Subjective Date/time seen: 02/02/25 09:20 Interval history: Increase the dose of MiraLax and added Senokot. Will do bladder training tomorrow to discontinue the [place]. Exam Narrative: Patient is comfortable, NAD HEENT: eyes are clear and none icteric LUNGS:CTA HEART: RR S1S2 ABD: BS+, Soft and nontender Lower extremities: no edema SKIN: nonjaundiced Neuro: grossly intact. Const: Other: looks tired. HENMT: Other: Head is normocephalic atraumatic, mucous membranes are dry, crowded posterior oropharynx, pupils are equal and reactive, positive conjunctival pallor, no scleral icterus Neck: Other: No lymphadenopathy, no JVD, no thyromegaly Chest: Other: no breathing difficulty, nonlabor breath Central line on left chest, dressing applied, no erythema Resp: Effort & Inspection: normal respiratory effort Auscultation: clear to auscultation bilaterally Other: Tachypnea with abdominal respirations, no wheezing, no rhonchi Cardio: Other: RRR, No murmur or gallop GI: Other: soft, but large body habitus to appreciate organomegally : Other: Incontinent of urine, blood tinged urine in depends, normal external genitalia Skin: Other: Hot to touch, diaphoretic, 2-3 second cap refill Neuro: Other: Response to verbal stimuli but inappropriate responses answering only yes or no, moves all extremities equally, no facial asymmetry, flat affect, patient has difficulty following commands in neuro exam was subsequently limited Extrem: Other: bilateral lower extremity edema Psych: Other: Flat affect, cooperative, poor judgment and insight Objective Data Vital Signs Vital Signs: Vital Signs - 24 hr 02/01/25 10:02/01/25 10:02/01/25 10:04 Temperature Pulse Rate 49 L 49 L Respiratory Rate Blood Pressure Pulse Oximetry Oxygen Delivery Room Air Fraction of Inspired Oxygen 21 02/01/25 12:00 02/01/25 13:35 02/01/25 16:00 Temperature 97.7 F Pulse Rate 61 51 L 50 L Respiratory Rate 16 Blood Pressure 127/71 Pulse Oximetry 100 Oxygen Delivery Fraction of Inspired Oxygen 02/01/25 19:51 02/01/25 20:00 02/01/25 20:00 Temperature Pulse Rate 87 59 L Respiratory Rate 20 Blood Pressure Pulse Oximetry 90 Oxygen Delivery Room Air Room Air Fraction of Inspired Oxygen 21 02/01/25 22:00 02/02/25 00:00 02/02/25 04:00 Temperature 97.3 F L Pulse Rate 53 L 53 L 63 Respiratory Rate 16 Blood Pressure 133/64 Pulse Oximetry 98 Oxygen Delivery Fraction of Inspired Oxygen 02/02/25 05:33 Temperature 97.0 F L Pulse Rate 57 L Respiratory Rate 16 Blood Pressure 131/57 L Pulse Oximetry 98 Oxygen Delivery Fraction of Inspired Oxygen Intake/Output Intake/Output: Intake & Output 01/30/25 01/31/25 02/01/25 02/02/25 23:59 23:59 23:59 23:59 Intake Total 816 1850 1740 900 Output Total 1275 3200 5674 4698 [employer] [facility] [employer] [facility] [phone] Meds/Results Medications: Active Medications Generic Name Dose Route Start Last Admin Trade Name Freq PRN Reason Stop Dose Admin Acetaminophen 650 mg 01/24/25 23:29 01/25/25 21:54 Acetaminophen 650 Mg Suppository RECTAL 650 mg Q6H PRN Administration Mild Pain (1-3) or Fever Acetaminophen 650 mg 01/25/25 04:57 01/25/25 15:55 Acetaminophen 325 Mg Tablet PO 650 mg Q4H PRN Administration Mild Pain (1-3) or Fever Aspirin 81 mg 01/27/25 09:00 02/01/25 10:03 Aspirin 81 Mg Chewable Tablet PO 81 mg DAILY PIETER Administration Baclofen 5 mg 01/27/25 10:20 Baclofen 5 Mg Tablet PO BID PRN Muscle Spasm Cyanocobalamin 1,000 mcg 01/29/25 09:00 01/29/25 09:03 Cyanocobalamin Inj 1,000 Mcg/Ml Vial SUB-Q 1,000 mcg MONTHLY PIETER Administration Enoxaparin Sodium 30 mg 01/25/25 09:00 02/01/25 10:02 Enoxaparin 30 Mg/0.3 Ml Syringe SUB-Q 30 mg DAILY PIETER Administration Furosemide 20 mg 01/27/25 09:00 01/28/25 09:06 Furosemide 20 Mg Tablet PO 20 mg On Hold: 01/31/25 14:05 QAM PIETER Administration Ceftriaxone Sodium 2 gm/ 100 mls @ 200 mls/hr 01/28/25 21:00 02/01/25 21:16 Sodium Chloride IVPB 02/03/25 21:29 200 mls/hr Q24H PIETER Administration Isosorbide Mononitrate 15 mg 01/27/25 09:00 02/01/25 10:03 Isosorbide Mononitrate 15 Mg Tab.Er.24h PO 15 mg DAILY PIETER Administration Metoprolol Succinate 25 mg 01/27/25 09:00 02/01/25 10:04 Metoprolol Succinate Ext Rel 25 Mg Tabcr PO Not Given DAILY [facility] Ondansetron HCl 4 mg 01/25/25 04:57 Ondansetron Inj 4 Mg/2 Ml Vial IV PUSH Q4H PRN Nausea Oxybutynin Chloride 10 mg 01/27/25 09:00 02/01/25 10:03 Oxybutynin Chloride Xl 5 Mg Tab.Er.24 PO 10 mg DAILY PIETER Administration Pantoprazole Sodium 40 mg 01/28/25 09:00 02/01/25 10:02 Pantoprazole 40 Mg Tablet PO 40 mg QAM PIETER Administration Polyethylene Glycol 17 gm 01/30/25 09:50 02/01/25 10:02 Polyethylene Glycol 3350 17 Gm Powd.Pack PO 17 gm QAM PIETER Administration Rosuvastatin Calcium 40 mg 01/27/25 09:00 02/01/25 10:02 Rosuvastatin 20 Mg Tablet PO 40 mg DAILY [facility] Administration Sodium Chloride 20 ml 01/25/25 06:42 Central Line Flush IV PUSH PRN PRN after blood draws Radiology Results: ITS Impressions Head CT 01/25/25 08:55 Impression: No intracranial hemorrhage, mass, or acute infarct. Atrophy and chronic white matter changes, as above. Chest/Abdomen/Pelvis CT 01/25/25 08:58 Impression: 14 mm proximal right ureteral stone with mild right hydronephrosis. Additional small bilateral nonobstructing renal stones. Cholelithiasis. Small fat-containing umbilical hernia. Renal Ultrasound 01/26/25 21:46 Impression: 1: Unremarkable renal ultrasound. No stones, masses or hydronephrosis. Chest X-Ray 01/28/25 06:48 Impression: Clear lungs. Left subclavian line in place. Abdomen X-Ray 02/01/25 14:42 IMPRESSION: 1: No acute abdominal abnormality identified. Labs Labs: Laboratory Results - last 24 hr 02/02/25 05:22 WBC 15.4 H RBC 4.17 L Hgb 11.6 L Hct 35.7 L MCV 85.6 MCH 27.8 MCHC 32.5 RDW 13.3 Plt Count 364 MPV 11.0 H Immature Gran % (Auto) 1.3 H Neut % (Auto) 69.2 Lymph % (Auto) 20.6 [place] % (Auto) 5.6 Eos % (Auto) 3.0 Baso % (Auto) 0.3 Lymph # (Auto) 3.17 [place] # (Auto) 0.9 H Eos # (Auto) 0.5 H Baso # (Auto) 0.1 Abs Immat Gran (auto) 0.20 H Absolute Neuts (auto) 10.7 H Absolute Nucleated RBC 0.000 Nucleated RBC % 0.0 Sodium 137 Potassium 4.2 Chloride 105 Carbon Dioxide 23 Anion Gap 9 BUN 75 H Creatinine 7.28 H Estim Creat Clear Calc 13 Estimated GFR 8 L Glucose 113 H Calcium 8.6 Total Bilirubin 0.4 AST 79 H ALT 67 H Alkaline Phosphatase 186 H Total Protein 6.5 Albumin 3.3 L Hospitalist MIPS Advance Care Plan I have confirmed that the patient's Advanced Care Plan is present, code status is documented, or surrogate decision maker is listed in patient medical record.: Yes Medication Reconciliation I have utilized all available resources to obtain, update and review the patients current medications (includes all prescriptions, OTC, herbals, cannabis, and nutritional supplements).: Yes
[2025-02-02] MEDS: oxyBUTYnin CHLORIDE XL 5 MG TAB.ER.24 10 MG PO (09:34)
[2025-02-02] MEDS: ENOXAPARIN 30 MG/0.3 ML SYRINGE SUB-Q (09:34)
[2025-02-02] MEDS: ROSUVASTATIN 20 MG TABLET 40 MG PO (09:35)
[2025-02-02] MEDS: METOPROLOL SUCCINATE EXT REL 25 MG TABCR PO (09:35)
[2025-02-02] MEDS: ASPIRIN 81 MG CHEWABLE TABLET PO (09:35)
[2025-02-02] MEDS: ISOSORBIDE MONONITRATE 15 MG TAB.ER.24H PO (09:35)
[2025-02-02] MEDS: PANTOPRAZOLE 40 MG TABLET PO (09:35)
--- NOTE | 2025-02-02 09:59 | P.PNNP_ITS ---
Progress Note: A&P Assessment and Plan (1) Acute kidney injury: Code(s): N17.9 - Acute kidney failure, unspecified Status: Acute Assessment and Plan: * slow improvement noted * as noted on admission * normal creatinine by last admission here in July 2024 * suspect due to ATN from several issues: * hypotension/hemodynamic instability * infection/sepsis (UTI + bacteremia) * obstruction (from nephrolithiasis) * prerenal factors (?) * other (?) * creatinine appears to have peaked/plateaued at 8.03mg/dL * evaluation to date: * admission CT imaging noted * renal ultrasound without obstruction * urine electrolytes non-prerenal * urine eosinophils negative * CPK normal * + proteinuria noted * possible new baseline creatinine given the severity of this insult... * follow trend of repeat labs and UOP (2) Septic shock: Code(s): A41.9 - Sepsis, unspecified organism; R65.21 - Severe sepsis with septic shock Status: Acute Assessment and Plan: * resolving * suspect due to UTI complicated by right ureteral stone and hydronephrosis * however, positive blood cultures noted as well... * weaned off levophed gtt on 01/25 * s/p bicarb IVF resuscitation * follow culture data * urine culture negative * blood cultures noted (see #3) * on antibiotics * follow trend of hemodynamics (3) Bacteremia: Code(s): R78.81 - Bacteremia Status: Acute Assessment and Plan: * as noted by blood cultures: * on 01/24 - Proteus mirabilis * on 01/25 - Proteus mirabilis * on antibiotics * follow repeat cultures (4) Metabolic acidosis: Code(s): E87.20 - Acidosis, unspecified Status: Acute Assessment and Plan: * resolved * due to RAJESH/ARF along with lactic acidosis * lactic acid has normalized * off bicarb IVFs as this time * follow CO2 levels (5) Urinary tract infection: Qualifiers: Hematuria presence: with hematuria Urinary tract infection type: acute cystitis Qualified Code(s): N30.01 - Acute cystitis with hematuria Code(s): N39.0 - Urinary tract infection, site not specified Status: Acute Assessment and Plan: * suspected based on UA on admission * follow urine culture results - negative to date * on antibiotics (6) Anemia: Code(s): D64.9 - Anemia, unspecified Status: Acute Assessment and Plan: * due to RAJESH with a component of dilution from IVFs * no need for CASIMIRO * follow trend of H/H (7) Nephrolithiasis: Code(s): N20.0 - Calculus of kidney Status: Acute Assessment and Plan: * as noted on admission imaging complicated by hydronephrosis * Urology following * s/p cystoscopy with right ureteral stent placement * further intervention with regard to right kidney stone to be done at a later date.... (8) Encephalopathy: Code(s): G93.40 - Encephalopathy, unspecified Status: Acute Assessment and Plan: * seems stable * per family, has some short memory issues * likely complicated by sepsis/infection and know history of leukodystrophy * head CT negative * normal TSH and ammonia * follow mentation Will continue to follow. L Subjective Date/time seen: 02/02/25 09:59 Interval history: Follow-up for acute kidney injury/acute renal failure. Renal function/creatinine improving albeit very slowly in association with good urine output; no apparent distress voiced at the time of my visit; watching TV when seen; no other issues/events overnight or earlier this morning. Exam 2 Narrative: General: WD/WN male in NAD Heart: normal S1 and S2; no rub Lungs: clear anteriorly; decreased at bases Abdomen: soft, nontender, nondistended, positive bowel sounds Extremities: no cyanosis or clubbing; trace edema Skin: no rash Objective Data Vital Signs Vital Signs: Vital Signs Temp Pulse Resp BP Pulse Ox O2 Del Method FiO2 02/02/25 09:35 54 L 02/02/25 05:33 97.0 F L 57 L 16 131/57 L 98 02/02/25 04:00 63 02/02/25 00:00 53 L 02/01/25 22:00 97.3 F L 53 L 16 133/64 98 02/01/25 20:00 59 L 02/01/25 20:00 Room Air 02/01/25 19:51 87 20 90 Room Air 21 02/01/25 16:00 50 L 02/01/25 13:35 97.7 F 51 L 16 127/71 100 Intake/Output Intake/Output: Intake & Output 01/30/25 01/31/25 02/01/25 02/02/25 23:59 23:59 23:59 23:59 Intake Total 816 1850 1740 900 Output Total 0511 4475 0222 0250 [facility] [phone] Meds/Results Medications: Active Medications Generic Name Dose Route Start Last Admin Trade Name Freq PRN Reason Stop Dose Admin Acetaminophen 650 mg 01/24/25 23:29 01/25/25 21:54 Acetaminophen 650 Mg Suppository RECTAL 650 mg Q6H PRN Administration Mild Pain (1-3) or Fever Acetaminophen 650 mg 01/25/25 04:57 01/25/25 15:55 Acetaminophen 325 Mg Tablet PO 650 mg Q4H PRN Administration Mild Pain (1-3) or Fever Aspirin 81 mg 01/27/25 09:00 02/02/25 09:35 Aspirin 81 Mg Chewable Tablet PO 81 mg DAILY PIETER Administration Baclofen 5 mg 01/27/25 10:20 Baclofen 5 Mg Tablet PO BID PRN Muscle Spasm Cyanocobalamin 1,000 mcg 01/29/25 09:00 01/29/25 09:03 Cyanocobalamin Inj 1,000 Mcg/Ml Vial SUB-Q 1,000 mcg MONTHLY PIETER Administration Enoxaparin Sodium 30 mg 01/25/25 09:00 02/02/25 09:34 Enoxaparin 30 Mg/0.3 Ml Syringe SUB-Q 30 mg DAILY PIETER Administration Furosemide 20 mg 01/27/25 09:00 01/28/25 09:06 Furosemide 20 Mg Tablet PO 20 mg On Hold: 01/31/25 14:05 QAM PIETER Administration Ceftriaxone Sodium 2 gm/ 100 mls @ 200 mls/hr 01/28/25 21:00 02/01/25 21:16 Sodium Chloride IVPB 02/03/25 21:29 200 mls/hr Q24H PIETER Administration Isosorbide Mononitrate 15 mg 01/27/25 09:00 02/02/25 09:35 Isosorbide Mononitrate 15 Mg Tab.Er.24h PO 15 mg DAILY PIETER Administration Metoprolol Succinate 25 mg 01/27/25 09:00 02/02/25 09:35 Metoprolol Succinate Ext Rel 25 Mg Tabcr PO 25 mg DAILY PIETER Administration Ondansetron HCl 4 mg 01/25/25 04:57 Ondansetron Inj 4 Mg/2 Ml Vial IV PUSH Q4H PRN Nausea Oxybutynin Chloride 10 mg 01/27/25 09:00 02/02/25 09:34 Oxybutynin Chloride Xl 5 Mg Tab.Er.24 PO 10 mg DAILY PIETER Administration Pantoprazole Sodium 40 mg 01/28/25 09:00 02/02/25 09:35 Pantoprazole 40 Mg Tablet PO 40 mg QAM PIETER Administration Polyethylene Glycol 17 gm 01/30/25 09:50 02/02/25 09:35 Polyethylene Glycol 3350 17 Gm Powd.Pack PO 17 gm QAM PIETER Administration Rosuvastatin Calcium 40 mg 01/27/25 09:00 02/02/25 09:35 Rosuvastatin 20 Mg Tablet PO 40 mg DAILY PIETER Administration Sodium Chloride 20 ml 01/25/25 06:42 Central Line Flush IV PUSH PRN PRN after blood draws Radiology Results: ITS Impressions Head CT 01/25/25 08:55 Impression: No intracranial hemorrhage, mass, or acute infarct. Atrophy and chronic white matter changes, as above. Chest/Abdomen/Pelvis CT 01/25/25 08:58 Impression: 14 mm proximal right ureteral stone with mild right hydronephrosis. Additional small bilateral nonobstructing renal stones. Cholelithiasis. Small fat-containing umbilical hernia. Renal Ultrasound 01/26/25 21:46 Impression: 1: Unremarkable renal ultrasound. No stones, masses or hydronephrosis. Chest X-Ray 01/28/25 06:48 Impression: Clear lungs. Left subclavian line in place. Abdomen X-Ray 02/01/25 14:42 IMPRESSION: 1: No acute abdominal abnormality identified. Labs Labs: Laboratory Tests 02/02/25 05:22 02/02/25 05:22 Calcium 8.6 Total Bilirubin 0.4 AST 79 H ALT 67 H Alkaline Phosphatase 186 H Total Protein 6.5 Albumin 3.3 L
[2025-02-02] MEDS: SENNOSIDES 8.6 MG TABLET PO (17:37)
[2025-02-02] MEDS: cefTRIAXone 2 GM in SODIUM CHLORIDE 0.9% IV 100 ML 200 ML IVPB (22:11)
[2025-02-03] VITALS (10 sets, daily range): BP systolic 125–151; BP diastolic 59–88; PULSE 49–54; RESP 18–20; TEMP 36.1–36.6; O2SAT 94–99
[2025-02-03 05:52] LABS: Hematocrit 32.5 % (42.0-52.0); Hemoglobin 10.6 g/dL (14.0-18.0); Immature Granulocyte Percent A 1.3 % (0-0.5); Lymphocytes Absolute Auto 2.28 K/mm3 (0.9-3.2); Mean Corpuscular HGB Conc 32.6 g/dl (32-36); Mean Corpuscular Hemoglobin 28.0 pg (26-34); Mean Corpuscular Volume 86.0 fl (80-100); Nucleated Red Blood Cells Absolute Auto 0.000 K/mm3 (0.0-0.012); Nucleated Red Blood Cells Perc 0.0 % (0.0-0.2); Platelet Count Result 383 k/mm3 (150-375); Red Blood Count 3.78 M/mm3 (4.6-6.20); White Blood Count 12.8 K/mm3 (4.5-10.0)
[2025-02-03 06:03] LABS: Alanine Aminotransferase 58 U/L (6-50); Albumin Level 3.1 g/dL (3.5-5.1); Alkaline Phosphatase 167 U/L (38-126); Anion Gap 9 mmol/L (4-12); Aspartate Amino Transferase 56 U/L (17-59); Bilirubin,Total 0.3 mg/dL (0.2-1.3); Blood Urea Nitrogen 72 mg/dL (9-20); Calcium 8.4 mg/dL (8.4-10.2); Carbon Dioxide 23 mmol/L (22-30); Chloride 104 mmol/L (98-107); Estimated CRCL calculation 14 ml/min; Estimated Glomerular Filt Rate 8; Glucose 106 mg/dL (65-110); Potassium 4.2 mmol/L (3.4-5.0); Sodium 136 mmol/L (137-145); Total Protein 6.0 g/dL (6.3-8.2)
[2025-02-03] MEDS: ROSUVASTATIN 20 MG TABLET 40 MG PO (09:05)
[2025-02-03] MEDS: oxyBUTYnin CHLORIDE XL 5 MG TAB.ER.24 10 MG PO (09:05)
[2025-02-03] MEDS: PANTOPRAZOLE 40 MG TABLET PO (09:06)
[2025-02-03] MEDS: ASPIRIN 81 MG CHEWABLE TABLET PO (09:06)
[2025-02-03] MEDS: SENNOSIDES 8.6 MG TABLET PO ×2 (09:06→17:58)
[2025-02-03] MEDS: ISOSORBIDE MONONITRATE 15 MG TAB.ER.24H PO (09:06)
[2025-02-03] MEDS: ENOXAPARIN 30 MG/0.3 ML SYRINGE SUB-Q (09:06)
--- NOTE | 2025-02-03 12:58 | P.PNIM_ITS ---
Progress Note: A&P Assessment and Plan (1) Septic shock: Code(s): A41.9 - Sepsis, unspecified organism; R65.21 - Severe sepsis with septic shock Status: Acute (2) Abnormal urinalysis: Code(s): R82.90 - Unspecified abnormal findings in urine Status: Acute Assessment and Plan: Patient was in septic shock likely secondary to urinary tract infection-off Levophed, hemodynamically stable, off IV fluid, medical with tele UA shows 2+ leukocyte is trace more than 100 WBC in the urine CT abdomen and pelvis shows cystitis and or changes due to prostatomegaly and right renal pelvis 1.2 cm stone with mild hydronephrosis Continue ceftriaxone to complete 10 days of antibiotics Leukocytes is up trending but he is afebrile, hemodynamically stable, did not think he has infected. (3) Acute kidney injury: Code(s): N17.9 - Acute kidney failure, unspecified Status: Acute Assessment and Plan: Likely secondary to septic shock On admission, creatinine 2.71, today 7.91 Nephrology is following, appreciate recs Kidney function is improving, has adequate urine output (4) Leukodystrophy: Onset Date: ~06/2021 Code(s): G31.80 - Leukodystrophy, unspecified Status: Acute (5) Overactive bladder: Code(s): N32.81 - Overactive bladder Status: Acute (6) Lactic acidosis: Code(s): E87.20 - Acidosis, unspecified Status: Acute Assessment and Plan: Lactic acid normalized (7) Chronic constipation: Code(s): K59.09 - Other constipation Status: Acute Assessment and Plan: MiraLax p.r.n. (8) Hydronephrosis: Qualifiers: Hydronephrosis type: with ureteral calculous obstruction Qualified Code(s): N13.2 - Hydronephrosis with renal and ureteral calculous obstruction Code(s): N13.30 - Unspecified hydronephrosis Status: Acute Assessment and Plan: Likely secondary to left kidney stone Status post cystoscopy, right 3 GERD, right stent placement 4.8 Palestinian 01/25/2025 by urology Plan for definitive to outpatient stone treatment and stent management (9) Edema of both feet: Code(s): R60.0 - Localized edema Status: Acute Assessment and Plan: Likely secondary to IV fluid 2D echo 03/14/2024 shows EF 55-60%, normal left ventricle systolic function, suspected diastolic function abnormal at that point On clinical exam there is no sign of cardiac dysfunction Feet edema is better today (10) Physical deconditioning: Code(s): R53.81 - Other malaise Status: Acute Assessment and Plan: Likely secondary to multifactorial etiology: Acute illness/immobility Physical therapy Dietary consult, to increase his oral intake Plan Physical therapy, and pending placement Kidney function is better today CMP tomorrow Subjective Date/time seen: 02/03/25 12:58 Interval history: Patient does not want to take MiraLax. Patient reports no bowel movement. Will do bladder training once patient has a bowel movement. Patient creatinine is improving. Will continue the IV fluids Review of Systems Review of Systems: Unobtainable due to patient's mentation. All systems reviewed & are unremarkable except as noted in HPI and below (HPI) Exam Narrative: Patient is comfortable, NAD HEENT: eyes are clear and none icteric LUNGS:CTA HEART: RR S1S2 ABD: BS+, Soft and nontender Lower extremities: no edema SKIN: nonjaundiced Neuro: grossly intact. Const: Other: looks tired. HENMT: Other: Head is normocephalic atraumatic, mucous membranes are dry, crowded posterior oropharynx, pupils are equal and reactive, positive conjunctival pallor, no scleral icterus Neck: Other: No lymphadenopathy, no JVD, no thyromegaly Chest: Other: no breathing difficulty, nonlabor breath Central line on left chest, dressing applied, no erythema Resp: Effort & Inspection: normal respiratory effort Auscultation: clear to auscultation bilaterally Other: Tachypnea with abdominal respirations, no wheezing, no rhonchi Cardio: Other: RRR, No murmur or gallop GI: Other: soft, but large body habitus to appreciate organomegally : Other: Incontinent of urine, blood tinged urine in depends, normal external genitalia Skin: Other: Hot to touch, diaphoretic, 2-3 second cap refill Neuro: Other: Response to verbal stimuli but inappropriate responses answering only yes or no, moves all extremities equally, no facial asymmetry, flat affect, patient has difficulty following commands in neuro exam was subsequently limited Extrem: Other: bilateral lower extremity edema Psych: Other: Flat affect, cooperative, poor judgment and insight Objective Data Vital Signs Vital Signs: Vital Signs - 24 hr 02/02/25 14:00 02/02/25 16:00 02/02/25 19:42 Temperature 98.1 F 97.3 F L Pulse Rate 55 L 53 L 57 L Respiratory Rate 14 20 Blood Pressure 130/68 150/84 H Pulse Oximetry 99 97 Oxygen Delivery 02/02/25 20:00 02/02/25 20:00 02/03/25 00:00 Temperature Pulse Rate 59 L 52 L Respiratory Rate Blood Pressure Pulse Oximetry Oxygen Delivery Room Air 02/03/25 04:00 02/03/25 04:19 02/03/25 08:00 Temperature 97.4 F L Pulse Rate 50 L 51 L Respiratory Rate 20 Blood Pressure 151/88 H Pulse Oximetry 99 Oxygen Delivery Room Air 02/03/25 08:00 02/03/25 09:07 Temperature Pulse Rate 53 L 49 L Respiratory Rate Blood Pressure Pulse Oximetry Oxygen Delivery Intake/Output Intake/Output: Intake & Output 01/31/25 02/01/25 02/02/25 02/03/25 23:59 23:59 23:59 23:59 Intake Total 1850 1840 1620 880 Output Total 3200 0082 6856 900 [facility] [phone] Meds/Results Medications: Active Medications Generic Name Dose Route Start Last Admin Trade Name Freq PRN Reason Stop Dose Admin Acetaminophen 650 mg 01/24/25 23:29 01/25/25 21:54 Acetaminophen 650 Mg Suppository RECTAL 650 mg Q6H PRN Administration Mild Pain (1-3) or Fever Acetaminophen 650 mg 01/25/25 04:57 01/25/25 15:55 Acetaminophen 325 Mg Tablet PO 650 mg Q4H PRN Administration Mild Pain (1-3) or Fever Aspirin 81 mg 01/27/25 09:00 02/03/25 09:06 Aspirin 81 Mg Chewable Tablet PO 81 mg DAILY PIETER Administration Baclofen 5 mg 01/27/25 10:20 Baclofen 5 Mg Tablet PO BID PRN Muscle Spasm Cyanocobalamin 1,000 mcg 01/29/25 09:00 01/29/25 09:03 Cyanocobalamin Inj 1,000 Mcg/Ml Vial SUB-Q 1,000 mcg MONTHLY PIETER Administration Enoxaparin Sodium 30 mg 01/25/25 09:00 02/03/25 09:06 Enoxaparin 30 Mg/0.3 Ml Syringe SUB-Q 30 mg DAILY PIETER Administration Furosemide 20 mg 01/27/25 09:00 01/28/25 09:06 Furosemide 20 Mg Tablet PO 20 mg On Hold: 01/31/25 14:05 QAM PIETER Administration Ceftriaxone Sodium 2 gm/ 100 mls @ 200 mls/hr 01/28/25 21:00 02/02/25 22:11 Sodium Chloride IVPB 02/03/25 21:29 200 mls/hr Q24H PIETER Administration Isosorbide Mononitrate 15 mg 01/27/25 09:00 02/03/25 09:06 Isosorbide Mononitrate 15 Mg Tab.Er.24h PO 15 mg DAILY PIETER Administration Metoprolol Succinate 25 mg 01/27/25 09:00 02/03/25 09:07 Metoprolol Succinate Ext Rel 25 Mg Tabcr PO Not Given DAILY [facility] Ondansetron HCl 4 mg 01/25/25 04:57 Ondansetron Inj 4 Mg/2 Ml Vial IV PUSH Q4H PRN Nausea Oxybutynin Chloride 10 mg 01/27/25 09:00 02/03/25 09:05 Oxybutynin Chloride Xl 5 Mg Tab.Er.24 PO 10 mg DAILY PIETER Administration Pantoprazole Sodium 40 mg 01/28/25 09:00 02/03/25 09:06 Pantoprazole 40 Mg Tablet PO 40 mg QAM PIETER Administration Polyethylene Glycol 17 gm 02/02/25 17:00 02/03/25 09:06 Polyethylene Glycol 3350 17 Gm Powd.Pack PO 17 gm BID PIETER Administration Rosuvastatin Calcium 40 mg 01/27/25 09:00 02/03/25 09:05 Rosuvastatin 20 Mg Tablet PO 40 mg DAILY PIETER Administration Senna 8.6 mg 02/02/25 17:00 02/03/25 09:06 Sennosides 8.6 Mg Tablet PO 8.6 mg BID PIETER Administration Sodium Chloride 20 ml 01/25/25 06:42 Central Line Flush IV PUSH PRN PRN after blood draws Radiology Results: ITS Impressions Head CT 01/25/25 08:55 Impression: No intracranial hemorrhage, mass, or acute infarct. Atrophy and chronic white matter changes, as above. Chest/Abdomen/Pelvis CT 01/25/25 08:58 Impression: 14 mm proximal right ureteral stone with mild right hydronephrosis. Additional small bilateral nonobstructing renal stones. Cholelithiasis. Small fat-containing umbilical hernia. Renal Ultrasound 01/26/25 21:46 Impression: 1: Unremarkable renal ultrasound. No stones, masses or hydronephrosis. Chest X-Ray 01/28/25 06:48 Impression: Clear lungs. Left subclavian line in place. Abdomen X-Ray 02/01/25 14:42 IMPRESSION: 1: No acute abdominal abnormality identified. Labs Labs: Laboratory Results - last 24 hr 02/03/25 05:44 WBC 12.8 H RBC 3.78 L Hgb 10.6 L Hct 32.5 L MCV 86.0 MCH 28.0 MCHC 32.6 RDW 13.4 Plt Count 383 H MPV 10.9 H Immature Gran % (Auto) 1.3 H Neut % (Auto) 72.3 Lymph % (Auto) 17.8 L [place] % (Auto) 5.7 Eos % (Auto) 2.6 Baso % (Auto) 0.3 Lymph # (Auto) 2.28 [place] # (Auto) 0.7 H Eos # (Auto) 0.3 Baso # (Auto) 0.0 Abs Immat Gran (auto) 0.17 H Absolute Neuts (auto) 9.2 H Absolute Nucleated RBC 0.000 Nucleated RBC % 0.0 Sodium 136 L Potassium 4.2 Chloride 104 Carbon Dioxide 23 Anion Gap 9 BUN 72 H Creatinine 6.78 H Estim Creat Clear Calc 14 Estimated GFR 8 L Glucose 106 Calcium 8.4 Total Bilirubin 0.3 AST 56 ALT 58 H Alkaline Phosphatase 167 H Total Protein 6.0 L Albumin 3.1 L Quality VTE Prophylaxis VTE prophylaxis: pharmacologic ordered Hospitalist MIPS Advance Care Plan I have confirmed that the patient's Advanced Care Plan is present, code status is documented, or surrogate decision maker is listed in patient medical record.: Yes Medication Reconciliation I have utilized all available resources to obtain, update and review the patients current medications (includes all prescriptions, OTC, herbals, cannabis, and nutritional supplements).: Yes
--- NOTE | 2025-02-03 14:18 | P.PNNP_ITS ---
Progress Note: A&P Assessment and Plan (1) Acute kidney injury: Code(s): N17.9 - Acute kidney failure, unspecified Status: Acute Assessment and Plan: * slow improvement noted * as noted on admission * normal creatinine by last admission here in July 2024 * suspect due to ATN from several issues: * hypotension/hemodynamic instability * infection/sepsis (UTI + bacteremia) * obstruction (from nephrolithiasis) * prerenal factors (?) * other (?) * creatinine appears to have peaked/plateaued at 8.03mg/dL * evaluation to date: * admission CT imaging noted * renal ultrasound without obstruction * urine electrolytes non-prerenal * urine eosinophils negative * CPK normal * + proteinuria noted * possible new baseline creatinine given the severity of this insult... * follow trend of repeat labs and UOP (2) Septic shock: Code(s): A41.9 - Sepsis, unspecified organism; R65.21 - Severe sepsis with septic shock Status: Acute Assessment and Plan: * resolving * suspect due to UTI complicated by right ureteral stone and hydronephrosis * however, positive blood cultures noted as well... * weaned off levophed gtt on 01/25 * s/p bicarb IVF resuscitation * follow culture data * urine culture negative * blood cultures noted (see #3) * on antibiotics * follow trend of hemodynamics (3) Bacteremia: Code(s): R78.81 - Bacteremia Status: Acute Assessment and Plan: * as noted by blood cultures: * on 01/24 - Proteus mirabilis * on 01/25 - Proteus mirabilis * on antibiotics * follow repeat cultures (4) Metabolic acidosis: Code(s): E87.20 - Acidosis, unspecified Status: Acute Assessment and Plan: * resolved * due to RAJESH/ARF along with lactic acidosis * lactic acid has normalized * off bicarb IVFs as this time * follow CO2 levels (5) Urinary tract infection: Qualifiers: Hematuria presence: with hematuria Urinary tract infection type: acute cystitis Qualified Code(s): N30.01 - Acute cystitis with hematuria Code(s): N39.0 - Urinary tract infection, site not specified Status: Acute Assessment and Plan: * suspected based on UA on admission * follow urine culture results - negative to date * on antibiotics (6) Anemia: Code(s): D64.9 - Anemia, unspecified Status: Acute Assessment and Plan: * due to RAJESH with a component of dilution from IVFs * no need for CASIMIRO * follow trend of H/H (7) Nephrolithiasis: Code(s): N20.0 - Calculus of kidney Status: Acute Assessment and Plan: * as noted on admission imaging complicated by hydronephrosis * Urology following * s/p cystoscopy with right ureteral stent placement * further intervention with regard to right kidney stone to be done at a later date.... (8) Encephalopathy: Code(s): G93.40 - Encephalopathy, unspecified Status: Acute Assessment and Plan: * seems stable * per family, has some short memory issues * likely complicated by sepsis/infection and know history of leukodystrophy * head CT negative * normal TSH and ammonia * follow mentation Will continue to follow. L Subjective Date/time seen: 02/03/25 14:18 Interval history: Follow-up for acute kidney injury/acute renal failure. Mentation remains stable at the time of my visit; no apparent distress noted; renal function/creatinine improving albeit very slowly in association with good urine output; no issues/events overnight or earlier this morrning. Exam 2 Narrative: General: WD/WN male in NAD Heart: normal S1 and S2; no rub Lungs: clear anteriorly; decreased at bases Abdomen: soft, nontender, nondistended, positive bowel sounds Extremities: no cyanosis or clubbing; trace edema Skin: no nodules Objective Data Vital Signs Vital Signs: Vital Signs Temp Pulse Resp BP Pulse Ox O2 Del Method 02/03/25 14:15 97.9 F 51 L 20 125/59 L 99 02/03/25 12:00 50 L 02/03/25 09:07 49 L 02/03/25 08:00 53 L 02/03/25 08:00 Room Air 02/03/25 04:19 97.4 F L 51 L 20 151/88 H 99 02/03/25 04:00 50 L 02/03/25 00:00 52 L 02/02/25 20:00 59 L 02/02/25 20:00 Room Air 02/02/25 19:42 97.3 F L 57 L 20 150/84 H 97 Intake/Output Intake/Output: Intake & Output 01/31/25 02/01/25 02/02/25 02/03/25 23:59 23:59 23:59 23:59 Intake Total 1850 1840 1620 1870 Output Total 6986 2343 9519 1999 [facility] [phone] Meds/Results Medications: Active Medications Generic Name Dose Route Start Last Admin Trade Name Freq PRN Reason Stop Dose Admin Acetaminophen 650 mg 01/24/25 23:29 01/25/25 21:54 Acetaminophen 650 Mg Suppository RECTAL 650 mg Q6H PRN Administration Mild Pain (1-3) or Fever Acetaminophen 650 mg 01/25/25 04:57 01/25/25 15:55 Acetaminophen 325 Mg Tablet PO 650 mg Q4H PRN Administration Mild Pain (1-3) or Fever Aspirin 81 mg 01/27/25 09:00 02/03/25 09:06 Aspirin 81 Mg Chewable Tablet PO 81 mg DAILY PIETER Administration Baclofen 5 mg 01/27/25 10:20 Baclofen 5 Mg Tablet PO BID PRN Muscle Spasm Cyanocobalamin 1,000 mcg 01/29/25 09:00 01/29/25 09:03 Cyanocobalamin Inj 1,000 Mcg/Ml Vial SUB-Q 1,000 mcg MONTHLY PIETER Administration Enoxaparin Sodium 30 mg 01/25/25 09:00 02/03/25 09:06 Enoxaparin 30 Mg/0.3 Ml Syringe SUB-Q 30 mg DAILY PIETER Administration Furosemide 20 mg 01/27/25 09:00 01/28/25 09:06 Furosemide 20 Mg Tablet PO 20 mg On Hold: 01/31/25 14:05 QAM PIETER Administration Ceftriaxone Sodium 2 gm/ 100 mls @ 200 mls/hr 01/28/25 21:00 02/02/25 22:11 Sodium Chloride IVPB 02/03/25 21:29 200 mls/hr Q24H PIETER Administration Isosorbide Mononitrate 15 mg 01/27/25 09:00 02/03/25 09:06 Isosorbide Mononitrate 15 Mg Tab.Er.24h PO 15 mg DAILY PIETER Administration Metoprolol Succinate 25 mg 01/27/25 09:00 02/03/25 09:07 Metoprolol Succinate Ext Rel 25 Mg Tabcr PO Not Given DAILY PIETER Ondansetron HCl 4 mg 01/25/25 04:57 Ondansetron Inj 4 Mg/2 Ml Vial IV PUSH Q4H PRN Nausea Oxybutynin Chloride 10 mg 01/27/25 09:00 02/03/25 09:05 Oxybutynin Chloride Xl 5 Mg Tab.Er.24 PO 10 mg DAILY PIETER Administration Pantoprazole Sodium 40 mg 01/28/25 09:00 02/03/25 09:06 Pantoprazole 40 Mg Tablet PO 40 mg QAM PIETER Administration Polyethylene Glycol 17 gm 02/02/25 17:00 02/03/25 17:58 Polyethylene Glycol 3350 17 Gm Powd.Pack PO 17 gm BID PIETER Administration Rosuvastatin Calcium 40 mg 01/27/25 09:00 02/03/25 09:05 Rosuvastatin 20 Mg Tablet PO 40 mg DAILY PIETER Administration Senna 8.6 mg 02/02/25 17:00 02/03/25 17:58 Sennosides 8.6 Mg Tablet PO 8.6 mg BID PIETER Administration Sodium Chloride 20 ml 01/25/25 06:42 Central Line Flush IV PUSH PRN PRN after blood draws Radiology Results: ITS Impressions Head CT 01/25/25 08:55 Impression: No intracranial hemorrhage, mass, or acute infarct. Atrophy and chronic white matter changes, as above. Chest/Abdomen/Pelvis CT 01/25/25 08:58 Impression: 14 mm proximal right ureteral stone with mild right hydronephrosis. Additional small bilateral nonobstructing renal stones. Cholelithiasis. Small fat-containing umbilical hernia. Renal Ultrasound 01/26/25 21:46 Impression: 1: Unremarkable renal ultrasound. No stones, masses or hydronephrosis. Chest X-Ray 01/28/25 06:48 Impression: Clear lungs. Left subclavian line in place. Abdomen X-Ray 02/01/25 14:42 IMPRESSION: 1: No acute abdominal abnormality identified. Labs Labs: Laboratory Tests 02/03/25 05:44 02/03/25 05:44 Calcium 8.4 Total Bilirubin 0.3 AST 56 ALT 58 H Alkaline Phosphatase 167 H Total Protein 6.0 L Albumin 3.1 L
[2025-02-03] MEDS: cefTRIAXone 2 GM in SODIUM CHLORIDE 0.9% IV 100 ML 200 ML IVPB (21:18)
[2025-02-04] VITALS (9 sets, daily range): BP systolic 128–165; BP diastolic 65–84; PULSE 47–64; RESP 16; TEMP 36.4–36.8; O2SAT 97–99
[2025-02-04 07:27] LABS: Hematocrit 33.5 % (42.0-52.0); Hemoglobin 10.6 g/dL (14.0-18.0); Mean Corpuscular HGB Conc 31.6 g/dl (32-36); Mean Corpuscular Hemoglobin 27.2 pg (26-34); Mean Corpuscular Volume 86.1 fl (80-100); Platelet Count Result 426 k/mm3 (150-375); Red Blood Count 3.89 M/mm3 (4.6-6.20); White Blood Count 11.4 K/mm3 (4.5-10.0)
[2025-02-04 07:47] LABS: Alanine Aminotransferase 56 U/L (6-50); Albumin Level 3.0 g/dL (3.5-5.1); Alkaline Phosphatase 154 U/L (38-126); Anion Gap 7 mmol/L (4-12); Aspartate Amino Transferase 57 U/L (17-59); Bilirubin,Total 0.4 mg/dL (0.2-1.3); Blood Urea Nitrogen 67 mg/dL (9-20); Calcium 8.5 mg/dL (8.4-10.2); Carbon Dioxide 24 mmol/L (22-30); Chloride 107 mmol/L (98-107); Estimated CRCL calculation 15 ml/min; Estimated Glomerular Filt Rate 9; Glucose 105 mg/dL (65-110); Potassium 4.2 mmol/L (3.4-5.0); Sodium 138 mmol/L (137-145); Total Protein 6.2 g/dL (6.3-8.2)
[2025-02-04] MEDS: ROSUVASTATIN 20 MG TABLET 40 MG PO (08:08)
[2025-02-04] MEDS: SENNOSIDES 8.6 MG TABLET PO ×2 (08:08→17:12)
[2025-02-04] MEDS: PANTOPRAZOLE 40 MG TABLET PO (08:09)
[2025-02-04] MEDS: oxyBUTYnin CHLORIDE XL 5 MG TAB.ER.24 10 MG PO (08:09)
[2025-02-04] MEDS: ISOSORBIDE MONONITRATE 15 MG TAB.ER.24H PO (08:09)
[2025-02-04] MEDS: ASPIRIN 81 MG CHEWABLE TABLET PO (08:09)
[2025-02-04] MEDS: ENOXAPARIN 30 MG/0.3 ML SYRINGE SUB-Q (08:09)
--- NOTE | 2025-02-04 14:37 | P.PNNP_ITS ---
Progress Note: A&P Assessment and Plan (1) Acute kidney injury: Code(s): N17.9 - Acute kidney failure, unspecified Status: Acute Assessment and Plan: * slow improvement noted * as noted on admission * normal creatinine by last admission here in July 2024 * suspect due to ATN from several issues: * hypotension/hemodynamic instability * infection/sepsis (UTI + bacteremia) * obstruction (from nephrolithiasis) * prerenal factors (?) * other (?) * creatinine appears to have peaked/plateaued at 8.03mg/dL * evaluation to date: * admission CT imaging noted * renal ultrasound without obstruction * urine electrolytes non-prerenal * urine eosinophils negative * CPK normal * + proteinuria noted * possible new baseline creatinine given the severity of this insult(?)... * follow trend of repeat labs and UOP (2) Septic shock: Code(s): A41.9 - Sepsis, unspecified organism; R65.21 - Severe sepsis with septic shock Status: Acute Assessment and Plan: * resolving * suspect due to UTI complicated by right ureteral stone and hydronephrosis * however, positive blood cultures noted as well... * weaned off levophed gtt on 01/25 * s/p bicarb IVF resuscitation * follow culture data * urine culture negative * blood cultures noted (see #3) * on antibiotics * follow trend of hemodynamics (3) Bacteremia: Code(s): R78.81 - Bacteremia Status: Acute Assessment and Plan: * as noted by blood cultures: * on 01/24 - Proteus mirabilis * on 01/25 - Proteus mirabilis * on antibiotics * follow repeat cultures (4) Metabolic acidosis: Code(s): E87.20 - Acidosis, unspecified Status: Acute Assessment and Plan: * resolved * due to RAJESH/ARF along with lactic acidosis * lactic acid has normalized * off bicarb IVFs as this time * follow CO2 levels (5) Urinary tract infection: Qualifiers: Hematuria presence: with hematuria Urinary tract infection type: acute cystitis Qualified Code(s): N30.01 - Acute cystitis with hematuria Code(s): N39.0 - Urinary tract infection, site not specified Status: Acute Assessment and Plan: * suspected based on UA on admission * follow urine culture results - negative to date * on antibiotics (6) Anemia: Code(s): D64.9 - Anemia, unspecified Status: Acute Assessment and Plan: * due to RAJESH with a component of dilution from IVFs * no need for CASIMIRO * follow trend of H/H (7) Nephrolithiasis: Code(s): N20.0 - Calculus of kidney Status: Acute Assessment and Plan: * as noted on admission imaging complicated by hydronephrosis * Urology following * s/p cystoscopy with right ureteral stent placement * further intervention with regard to right kidney stone to be done at a later date.... (8) Encephalopathy: Code(s): G93.40 - Encephalopathy, unspecified Status: Acute Assessment and Plan: * seems stable * per family, has some short memory issues * likely complicated by sepsis/infection and know history of leukodystrophy * head CT negative * normal TSH and ammonia * follow mentation Would not be opposed to discharge from renal perspective if otherwise medically stable -- outpatient labs can be done to follow trend of improving kidney function. Will continue to follow. L Subjective Date/time seen: 02/04/25 14:37 Interval history: Follow-up for acute kidney injury/acute renal failure. No acute issues or problems voiced at the time of my visit; renal function/creatinine continues to slowly improve with good urine output noted and no critical electrolytes; mentation seems stable as well; no apparent distress noted when seen. Exam 2 Narrative: General: WD/WN male in NAD Heart: normal S1 and S2; no rub Lungs: clear anteriorly; decreased at bases Abdomen: soft, nontender, nondistended, positive bowel sounds Extremities: no cyanosis or clubbing; trace edema Skin: warm and dry Objective Data Vital Signs Vital Signs: Vital Signs Temp Pulse Resp BP Pulse Ox O2 Del Method 02/04/25 14:00 98.2 F 55 L 16 128/65 97 02/04/25 12:00 52 L 02/04/25 08:00 64 02/04/25 08:00 Room Air 02/04/25 06:17 97.7 F 52 L 16 165/84 H 97 02/04/25 04:00 53 L 02/04/25 00:00 54 L 02/03/25 21:50 94 Room Air 02/03/25 20:00 Room Air 02/03/25 19:53 97 F L 54 L 18 142/72 H 94 Intake/Output Intake/Output: Intake & Output 02/01/25 02/02/25 02/03/25 02/04/25 23:59 23:59 23:59 23:59 Intake Total 1840 1720 1870 1170 Output Total 9995 8449 1999 1999 Balance -660 -1555 -130 -830 Meds/Results Medications: Active Medications Generic Name Dose Route Start Last Admin Trade Name Freq PRN Reason Stop Dose Admin Acetaminophen 650 mg 01/24/25 23:29 01/25/25 21:54 Acetaminophen 650 Mg Suppository RECTAL 650 mg Q6H PRN Administration Mild Pain (1-3) or Fever Acetaminophen 650 mg 01/25/25 04:57 01/25/25 15:55 Acetaminophen 325 Mg Tablet PO 650 mg Q4H PRN Administration Mild Pain (1-3) or Fever Aspirin 81 mg 01/27/25 09:00 02/04/25 08:09 Aspirin 81 Mg Chewable Tablet PO 81 mg DAILY PIETER Administration Baclofen 5 mg 01/27/25 10:20 Baclofen 5 Mg Tablet PO BID PRN Muscle Spasm Cyanocobalamin 1,000 mcg 01/29/25 09:00 01/29/25 09:03 Cyanocobalamin Inj 1,000 Mcg/Ml Vial SUB-Q 1,000 mcg MONTHLY PIETER Administration Enoxaparin Sodium 30 mg 01/25/25 09:00 02/04/25 08:09 Enoxaparin 30 Mg/0.3 Ml Syringe SUB-Q 30 mg DAILY PIETER Administration Furosemide 20 mg 01/27/25 09:00 01/28/25 09:06 Furosemide 20 Mg Tablet PO 20 mg On Hold: 01/31/25 14:05 QAM PIETER Administration Isosorbide Mononitrate 15 mg 01/27/25 09:00 02/04/25 08:09 Isosorbide Mononitrate 15 Mg Tab.Er.24h PO 15 mg DAILY PIETER Administration Metoprolol Succinate 25 mg 01/27/25 09:00 02/04/25 08:10 Metoprolol Succinate Ext Rel 25 Mg Tabcr PO Not Given DAILY PIETER Ondansetron HCl 4 mg 01/25/25 04:57 Ondansetron Inj 4 Mg/2 Ml Vial IV PUSH Q4H PRN Nausea Oxybutynin Chloride 10 mg 01/27/25 09:00 02/04/25 08:09 Oxybutynin Chloride Xl 5 Mg Tab.Er.24 PO 10 mg DAILY PIETER Administration Pantoprazole Sodium 40 mg 01/28/25 09:00 02/04/25 08:09 Pantoprazole 40 Mg Tablet PO 40 mg QAM PIETER Administration Polyethylene Glycol 17 gm 02/02/25 17:00 02/04/25 17:12 Polyethylene Glycol 3350 17 Gm Powd.Pack PO 17 gm BID PIETER Administration Rosuvastatin Calcium 40 mg 01/27/25 09:00 02/04/25 08:08 Rosuvastatin 20 Mg Tablet PO 40 mg DAILY PIETER Administration Senna 8.6 mg 02/02/25 17:00 02/04/25 17:12 Sennosides 8.6 Mg Tablet PO 8.6 mg BID PIETER Administration Sodium Chloride 20 ml 01/25/25 06:42 Central Line Flush IV PUSH PRN PRN after blood draws Radiology Results: ITS Impressions Head CT 01/25/25 08:55 Impression: No intracranial hemorrhage, mass, or acute infarct. Atrophy and chronic white matter changes, as above. Chest/Abdomen/Pelvis CT 01/25/25 08:58 Impression: 14 mm proximal right ureteral stone with mild right hydronephrosis. Additional small bilateral nonobstructing renal stones. Cholelithiasis. Small fat-containing umbilical hernia. Renal Ultrasound 01/26/25 21:46 Impression: 1: Unremarkable renal ultrasound. No stones, masses or hydronephrosis. Chest X-Ray 01/28/25 06:48 Impression: Clear lungs. Left subclavian line in place. Abdomen X-Ray 02/01/25 14:42 IMPRESSION: 1: No acute abdominal abnormality identified. Labs Labs: Laboratory Tests 02/04/25 07:22 02/04/25 07:22 Calcium 8.5 Total Bilirubin 0.4 AST 57 ALT 56 H Alkaline Phosphatase 154 H Total Protein 6.2 L Albumin 3.0 L
--- NOTE | 2025-02-04 16:24 | P.PNIM_ITS ---
Progress Note: A&P Assessment and Plan (1) Septic shock: Code(s): A41.9 - Sepsis, unspecified organism; R65.21 - Severe sepsis with septic shock Status: Acute (2) Abnormal urinalysis: Code(s): R82.90 - Unspecified abnormal findings in urine Status: Acute Assessment and Plan: Patient was in septic shock likely secondary to urinary tract infection-off Levophed, hemodynamically stable, off IV fluid, medical with tele UA shows 2+ leukocyte is trace more than 100 WBC in the urine CT abdomen and pelvis shows cystitis and or changes due to prostatomegaly and right renal pelvis 1.2 cm stone with mild hydronephrosis Continue ceftriaxone to complete 10 days of antibiotics Leukocytes is up trending but he is afebrile, hemodynamically stable, did not think he has infected. (3) Acute kidney injury: Code(s): N17.9 - Acute kidney failure, unspecified Status: Acute Assessment and Plan: Likely secondary to septic shock On admission, creatinine 2.71, today 7.91 Nephrology is following, appreciate recs Kidney function is improving, has adequate urine output (4) Leukodystrophy: Onset Date: ~06/2021 Code(s): G31.80 - Leukodystrophy, unspecified Status: Acute (5) Overactive bladder: Code(s): N32.81 - Overactive bladder Status: Acute (6) Lactic acidosis: Code(s): E87.20 - Acidosis, unspecified Status: Acute Assessment and Plan: Lactic acid normalized (7) Chronic constipation: Code(s): K59.09 - Other constipation Status: Acute Assessment and Plan: MiraLax p.r.n. (8) Hydronephrosis: Qualifiers: Hydronephrosis type: with ureteral calculous obstruction Qualified Code(s): N13.2 - Hydronephrosis with renal and ureteral calculous obstruction Code(s): N13.30 - Unspecified hydronephrosis Status: Acute Assessment and Plan: Likely secondary to left kidney stone Status post cystoscopy, right 3 GERD, right stent placement 4.8 [place] 01/25/2025 by urology Plan for definitive to outpatient stone treatment and stent management (9) Edema of both feet: Code(s): R60.0 - Localized edema Status: Acute Assessment and Plan: Likely secondary to IV fluid 2D echo 03/14/2024 shows EF 55-60%, normal left ventricle systolic function, suspected diastolic function abnormal at that point On clinical exam there is no sign of cardiac dysfunction Feet edema is better today (10) Physical deconditioning: Code(s): R53.81 - Other malaise Status: Acute Assessment and Plan: Likely secondary to multifactorial etiology: Acute illness/immobility Physical therapy Dietary consult, to increase his oral intake Plan Physical therapy, and pending placement Kidney function is better today CMP tomorrow Subjective Date/time seen: 02/04/25 16:24 Interval history: Patient Cr continues to improves.No acute events overnight Review of Systems Review of Systems: Unobtainable due to patient's mentation. All systems reviewed & are unremarkable except as noted in HPI and below (HPI) Exam Narrative: Patient is comfortable, NAD HEENT: eyes are clear and none icteric LUNGS:CTA HEART: RR S1S2 ABD: BS+, Soft and nontender Lower extremities: no edema SKIN: nonjaundiced Neuro: grossly intact. Const: Other: looks tired. HENMT: Other: Head is normocephalic atraumatic, mucous membranes are dry, crowded posterior oropharynx, pupils are equal and reactive, positive conjunctival pallor, no scleral icterus Neck: Other: No lymphadenopathy, no JVD, no thyromegaly Chest: Other: no breathing difficulty, nonlabor breath Central line on left chest, dressing applied, no erythema Resp: Effort & Inspection: normal respiratory effort Auscultation: clear to auscultation bilaterally Other: Tachypnea with abdominal respirations, no wheezing, no rhonchi Cardio: Other: RRR, No murmur or gallop GI: Other: soft, but large body habitus to appreciate organomegally : Other: Incontinent of urine, blood tinged urine in depends, normal external genitalia Skin: Other: Hot to touch, diaphoretic, 2-3 second cap refill Neuro: Other: Response to verbal stimuli but inappropriate responses answering only yes or no, moves all extremities equally, no facial asymmetry, flat affect, patient has difficulty following commands in neuro exam was subsequently limited Extrem: Other: bilateral lower extremity edema Psych: Other: Flat affect, cooperative, poor judgment and insight Objective Data Vital Signs Vital Signs: Vital Signs - 24 hr 02/03/25 19:53 02/03/25 20:00 02/03/25 21:50 Temperature 97 F L Pulse Rate 54 L Respiratory Rate 18 Blood Pressure 142/72 H Pulse Oximetry 94 94 Oxygen Delivery Room Air Room Air 02/04/25 00:00 02/04/25 04:00 02/04/25 06:17 Temperature 97.7 F Pulse Rate 54 L 53 L 52 L Respiratory Rate 16 Blood Pressure 165/84 H Pulse Oximetry 97 Oxygen Delivery 02/04/25 08:00 02/04/25 14:00 Temperature 98.2 F Pulse Rate 55 L Respiratory Rate 16 Blood Pressure 128/65 Pulse Oximetry 97 Oxygen Delivery Room Air Intake/Output Intake/Output: Intake & Output 02/01/25 02/02/25 02/03/25 02/04/25 23:59 23:59 23:59 23:59 Intake Total 1840 1720 1870 930 Output Total 2500 3275 1999 1999 Balance -660 -1555 -130 -1070 Meds/Results Medications: Active Medications Generic Name Dose Route Start Last Admin Trade Name Freq PRN Reason Stop Dose Admin Acetaminophen 650 mg 01/24/25 23:29 01/25/25 21:54 Acetaminophen 650 Mg Suppository RECTAL 650 mg Q6H PRN Administration Mild Pain (1-3) or Fever Acetaminophen 650 mg 01/25/25 04:57 01/25/25 15:55 Acetaminophen 325 Mg Tablet PO 650 mg Q4H PRN Administration Mild Pain (1-3) or Fever Aspirin 81 mg 01/27/25 09:00 02/04/25 08:09 Aspirin 81 Mg Chewable Tablet PO 81 mg DAILY PIETER Administration Baclofen 5 mg 01/27/25 10:20 Baclofen 5 Mg Tablet PO BID PRN Muscle Spasm Cyanocobalamin 1,000 mcg 01/29/25 09:00 01/29/25 09:03 Cyanocobalamin Inj 1,000 Mcg/Ml Vial SUB-Q 1,000 mcg MONTHLY PIETER Administration Enoxaparin Sodium 30 mg 01/25/25 09:00 02/04/25 08:09 Enoxaparin 30 Mg/0.3 Ml Syringe SUB-Q 30 mg DAILY PIETER Administration Furosemide 20 mg 01/27/25 09:00 01/28/25 09:06 Furosemide 20 Mg Tablet PO 20 mg On Hold: 01/31/25 14:05 QAM PIETER Administration Isosorbide Mononitrate 15 mg 01/27/25 09:00 02/04/25 08:09 Isosorbide Mononitrate 15 Mg Tab.Er.24h PO 15 mg DAILY PIETER Administration Metoprolol Succinate 25 mg 01/27/25 09:00 02/04/25 08:10 Metoprolol Succinate Ext Rel 25 Mg Tabcr PO Not Given DAILY PIETER Ondansetron HCl 4 mg 01/25/25 04:57 Ondansetron Inj 4 Mg/2 Ml Vial IV PUSH Q4H PRN Nausea Oxybutynin Chloride 10 mg 01/27/25 09:00 02/04/25 08:09 Oxybutynin Chloride Xl 5 Mg Tab.Er.24 PO 10 mg DAILY PIETER Administration Pantoprazole Sodium 40 mg 01/28/25 09:00 02/04/25 08:09 Pantoprazole 40 Mg Tablet PO 40 mg QAM PIETER Administration Polyethylene Glycol 17 gm 02/02/25 17:00 02/04/25 08:09 Polyethylene Glycol 3350 17 Gm Powd.Pack PO 17 gm BID PIETER Administration Rosuvastatin Calcium 40 mg 01/27/25 09:00 02/04/25 08:08 Rosuvastatin 20 Mg Tablet PO 40 mg DAILY PIETER Administration Senna 8.6 mg 02/02/25 17:00 02/04/25 08:08 Sennosides 8.6 Mg Tablet PO 8.6 mg BID PIETER Administration Sodium Chloride 20 ml 01/25/25 06:42 Central Line Flush IV PUSH PRN PRN after blood draws Radiology Results: ITS Impressions Head CT 01/25/25 08:55 Impression: No intracranial hemorrhage, mass, or acute infarct. Atrophy and chronic white matter changes, as above. Chest/Abdomen/Pelvis CT 01/25/25 08:58 Impression: 14 mm proximal right ureteral stone with mild right hydronephrosis. Additional small bilateral nonobstructing renal stones. Cholelithiasis. Small fat-containing umbilical hernia. Renal Ultrasound 01/26/25 21:46 Impression: 1: Unremarkable renal ultrasound. No stones, masses or hydronephrosis. Chest X-Ray 01/28/25 06:48 Impression: Clear lungs. Left subclavian line in place. Abdomen X-Ray 02/01/25 14:42 IMPRESSION: 1: No acute abdominal abnormality identified. Labs Labs: Laboratory Results - last 24 hr 02/04/25 07:22 WBC 11.4 H RBC 3.89 L Hgb 10.6 L Hct 33.5 L MCV 86.1 MCH 27.2 MCHC 31.6 L RDW 13.5 Plt Count 426 H MPV 10.5 H Sodium 138 Potassium 4.2 Chloride 107 Carbon Dioxide 24 Anion Gap 7 BUN 67 H Creatinine 6.19 H Estim Creat Clear Calc 15 Estimated GFR 9 L Glucose 105 Calcium 8.5 Total Bilirubin 0.4 AST 57 ALT 56 H Alkaline Phosphatase 154 H Total Protein 6.2 L Albumin 3.0 L Quality VTE Prophylaxis VTE prophylaxis: pharmacologic ordered Hospitalist [facility] Advance Care Plan I have confirmed that the patient's Advanced Care Plan is present, code status is documented, or surrogate decision maker is listed in patient medical record.: Yes Medication Reconciliation I have utilized all available resources to obtain, update and review the patients current medications (includes all prescriptions, OTC, herbals, cannabis, and nutritional supplements).: Yes
[2025-02-05] VITALS (9 sets, daily range): BP systolic 118–163; BP diastolic 59–76; PULSE 51–56; RESP 16–18; TEMP 36.1–36.9; O2SAT 98–100
[2025-02-05 06:26] LABS: Hematocrit 34.5 % (42.0-52.0); Hemoglobin 10.9 g/dL (14.0-18.0); Mean Corpuscular HGB Conc 31.6 g/dl (32-36); Mean Corpuscular Hemoglobin 27.6 pg (26-34); Mean Corpuscular Volume 87.3 fl (80-100); Platelet Count Result 466 k/mm3 (150-375); Red Blood Count 3.95 M/mm3 (4.6-6.20); White Blood Count 11.7 K/mm3 (4.5-10.0)
[2025-02-05 06:49] LABS: Alanine Aminotransferase 59 U/L (6-50); Albumin Level 3.3 g/dL (3.5-5.1); Alkaline Phosphatase 156 U/L (38-126); Anion Gap 10 mmol/L (4-12); Aspartate Amino Transferase 51 U/L (17-59); Bilirubin,Total 0.4 mg/dL (0.2-1.3); Blood Urea Nitrogen 66 mg/dL (9-20); Calcium 8.6 mg/dL (8.4-10.2); Carbon Dioxide 23 mmol/L (22-30); Chloride 106 mmol/L (98-107); Estimated CRCL calculation 17 ml/min; Estimated Glomerular Filt Rate 11; Glucose 108 mg/dL (65-110); Potassium 4.8 mmol/L (3.4-5.0); Sodium 139 mmol/L (137-145); Total Protein 6.6 g/dL (6.3-8.2)
[2025-02-05] MEDS: SENNOSIDES 8.6 MG TABLET PO (08:19)
[2025-02-05] MEDS: ASPIRIN 81 MG CHEWABLE TABLET PO (08:19)
[2025-02-05] MEDS: ISOSORBIDE MONONITRATE 15 MG TAB.ER.24H PO (08:19)
[2025-02-05] MEDS: oxyBUTYnin CHLORIDE XL 5 MG TAB.ER.24 10 MG PO (08:19)
[2025-02-05] MEDS: ROSUVASTATIN 20 MG TABLET 40 MG PO (08:19)
[2025-02-05] MEDS: PANTOPRAZOLE 40 MG TABLET PO (08:19)
--- NOTE | 2025-02-05 10:40 | P.PNNP_ITS ---
Progress Note: A&P Assessment and Plan (1) Acute kidney injury: Code(s): N17.9 - Acute kidney failure, unspecified Status: Acute Assessment and Plan: * slow improvement noted * as noted on admission * normal creatinine by last admission here in July 2024 * suspect due to ATN from several issues: * hypotension/hemodynamic instability * infection/sepsis (UTI + bacteremia) * obstruction (from nephrolithiasis) * prerenal factors (?) * other (?) * creatinine appears to have peaked/plateaued at 8.03mg/dL * evaluation to date: * admission CT imaging noted * renal ultrasound without obstruction * urine electrolytes non-prerenal * urine eosinophils negative * CPK normal * + proteinuria noted * may have a possible new baseline creatinine given the severity of this insult(?)... * follow trend of repeat labs and UOP (2) Septic shock: Code(s): A41.9 - Sepsis, unspecified organism; R65.21 - Severe sepsis with septic shock Status: Acute Assessment and Plan: * resolved * suspect due to UTI complicated by right ureteral stone and hydronephrosis * however, positive blood cultures noted as well... * weaned off levophed gtt on 01/25 * s/p bicarb IVF resuscitation * follow culture data * urine culture negative * blood cultures noted (see #3) * completed course of antibiotics * follow trend of hemodynamics (3) Bacteremia: Code(s): R78.81 - Bacteremia Status: Acute Assessment and Plan: * as noted by blood cultures: * on 01/24 - Proteus mirabilis * on 01/25 - Proteus mirabilis * finished course of antibiotics * continue supportive therapy (4) Metabolic acidosis: Code(s): E87.20 - Acidosis, unspecified Status: Acute Assessment and Plan: * resolved * due to RAJESH/ARF along with lactic acidosis * lactic acid has normalized * off bicarb IVFs as this time * follow CO2 levels (5) Urinary tract infection: Qualifiers: Hematuria presence: with hematuria Urinary tract infection type: acute cystitis Qualified Code(s): N30.01 - Acute cystitis with hematuria Code(s): N39.0 - Urinary tract infection, site not specified Status: Acute Assessment and Plan: * suspected based on UA on admission * follow urine culture results - negative to date * off antibiotics (6) Anemia: Code(s): D64.9 - Anemia, unspecified Status: Acute Assessment and Plan: * due to RAJESH with a component of dilution from IVFs * no need for CASIMIRO * follow trend of H/H (7) Nephrolithiasis: Code(s): N20.0 - Calculus of kidney Status: Acute Assessment and Plan: * as noted on admission imaging complicated by hydronephrosis * Urology following * s/p cystoscopy with right ureteral stent placement * further intervention with regard to right kidney stone to be done at a later date.... (8) Encephalopathy: Code(s): G93.40 - Encephalopathy, unspecified Status: Acute Assessment and Plan: * seems stable * per family, has some short memory issues * likely complicated by sepsis/infection and know history of leukodystrophy * head CT negative * normal TSH and ammonia * follow mentation Would not be opposed to discharge from renal perspective if otherwise medically stable -- outpatient labs can be done to follow trend of improving kidney function. Will continue to follow intermittently. L Subjective Date/time seen: 02/05/25 10:40 Interval history: Follow-up for acute kidney injury/acute renal failure. Renal function/creatinine continues to improve albeit slowly; stable hemodynamics noted and making reasonable urine output as well; no other issues or events noted overnight or earlier this morning. Exam 2 Narrative: General: WD/WN male in NAD Heart: normal S1 and S2; no rub Lungs: clear anteriorly; decreased at bases Abdomen: soft, nontender, nondistended, positive bowel sounds Extremities: no cyanosis or clubbing; trace edema Skin: warm and intact Objective Data Vital Signs Vital Signs: Vital Signs Temp Pulse Resp BP Pulse Ox O2 Del Method 02/05/25 08:00 Room Air 02/05/25 04:43 97.0 F L 56 L 16 163/76 H 98 02/05/25 04:00 56 L 02/05/25 00:00 52 L 02/04/25 20:00 59 L 02/04/25 20:00 Room Air 02/04/25 19:20 97.5 F L 58 L 16 164/75 H 99 02/04/25 16:00 47 L 02/04/25 14:00 98.2 F 55 L 16 128/65 97 Intake/Output Intake/Output: Intake & Output 08/26/02/03/25 02/04/25 02/05/25 23:59 23:59 23:59 23:59 Intake Total 1720 1070 2660 137 Output Total 4067 1233 8614 392 [place] -1555 -130 -990 -310 Meds/Results Medications: Active Medications Generic Name Dose Route Start Last Admin Trade Name Freq PRN Reason Stop Dose Admin Acetaminophen 650 mg 01/24/25 23:29 01/25/25 21:54 Acetaminophen 650 Mg Suppository RECTAL 650 mg Q6H PRN Administration Mild Pain (1-3) or Fever Acetaminophen 650 mg 01/25/25 04:57 01/25/25 15:55 Acetaminophen 325 Mg Tablet PO 650 mg Q4H PRN Administration Mild Pain (1-3) or Fever Aspirin 81 mg 01/27/25 09:00 02/05/25 08:19 Aspirin 81 Mg Chewable Tablet PO 81 mg DAILY PIETER Administration Baclofen 5 mg 01/27/25 10:20 Baclofen 5 Mg Tablet PO BID PRN Muscle Spasm Cyanocobalamin 1,000 mcg 01/29/25 09:00 01/29/25 09:03 Cyanocobalamin Inj 1,000 Mcg/Ml Vial SUB-Q 1,000 mcg MONTHLY PIETER Administration Enoxaparin Sodium 30 mg 01/25/25 09:00 02/05/25 08:29 Enoxaparin 30 Mg/0.3 Ml Syringe SUB-Q Not Given DAILY [facility] Furosemide 20 mg 01/27/25 09:00 01/28/25 09:06 Furosemide 20 Mg Tablet PO 20 mg On Hold: 01/31/25 14:05 QAM PIETER Administration Isosorbide Mononitrate 15 mg 01/27/25 09:00 02/05/25 08:19 Isosorbide Mononitrate 15 Mg Tab.Er.24h PO 15 mg DAILY PIETER Administration Metoprolol Succinate 25 mg 01/27/25 09:00 02/05/25 08:20 Metoprolol Succinate Ext Rel 25 Mg Tabcr PO Not Given DAILY [facility] Ondansetron HCl 4 mg 01/25/25 04:57 Ondansetron Inj 4 Mg/2 Ml Vial IV PUSH Q4H PRN Nausea Oxybutynin Chloride 10 mg 01/27/25 09:00 02/05/25 08:19 Oxybutynin Chloride Xl 5 Mg Tab.Er.24 PO 10 mg DAILY PIETER Administration Pantoprazole Sodium 40 mg 01/28/25 09:00 02/05/25 08:19 Pantoprazole 40 Mg Tablet PO 40 mg QAM PIETER Administration Polyethylene Glycol 17 gm 02/02/25 17:00 02/05/25 08:19 Polyethylene Glycol 3350 17 Gm Powd.Pack PO 17 gm BID PIETER Administration Rosuvastatin Calcium 40 mg 01/27/25 09:00 02/05/25 08:19 Rosuvastatin 20 Mg Tablet PO 40 mg DAILY PIETER Administration Senna 8.6 mg 02/02/25 17:00 02/05/25 08:19 Sennosides 8.6 Mg Tablet PO 8.6 mg BID PIETER Administration Sodium Chloride 20 ml 01/25/25 06:42 Central Line Flush IV PUSH PRN PRN after blood draws Radiology Results: ITS Impressions Head CT 01/25/25 08:55 Impression: No intracranial hemorrhage, mass, or acute infarct. Atrophy and chronic white matter changes, as above. Chest/Abdomen/Pelvis CT 01/25/25 08:58 Impression: 14 mm proximal right ureteral stone with mild right hydronephrosis. Additional small bilateral nonobstructing renal stones. Cholelithiasis. Small fat-containing umbilical hernia. Renal Ultrasound 01/26/25 21:46 Impression: 1: Unremarkable renal ultrasound. No stones, masses or hydronephrosis. Chest X-Ray 01/28/25 06:48 Impression: Clear lungs. Left subclavian line in place. Abdomen X-Ray 02/01/25 14:42 IMPRESSION: 1: No acute abdominal abnormality identified. Labs Labs: Laboratory Tests 02/05/25 06:13 02/05/25 06:13 Calcium 8.6 Total Bilirubin 0.4 AST 51 ALT 59 H Alkaline Phosphatase 156 H Total Protein 6.6 Albumin 3.3 L
--- NOTE | 2025-02-05 10:40 | PM.PNNEP ---
Progress Note: A&P Assessment and Plan (1) Acute kidney injury: Code(s): N17.9 - Acute kidney failure, unspecified Status: Acute Assessment and Plan: slow improvement noted as noted on admission normal creatinine by last admission here in July 2024 suspect due to ATN from several issues: hypotension/hemodynamic instability infection/sepsis (UTI + bacteremia) obstruction (from nephrolithiasis) prerenal factors (?) other (?) creatinine appears to have peaked/plateaued at 8.03mg/dL evaluation to date: admission CT imaging noted renal ultrasound without obstruction urine electrolytes non-prerenal urine eosinophils negative CPK normal + proteinuria noted may have a possible new baseline creatinine given the severity of this insult(?)... follow trend of repeat labs and UOP (2) Septic shock: Code(s): A41.9 - Sepsis, unspecified organism; R65.21 - Severe sepsis with septic shock Status: Acute Assessment and Plan: resolved suspect due to UTI complicated by right ureteral stone and hydronephrosis however, positive blood cultures noted as well... weaned off levophed gtt on 01/25 s/p bicarb IVF resuscitation follow culture data urine culture negative blood cultures noted (see #3) completed course of antibiotics follow trend of hemodynamics (3) Bacteremia: Code(s): R78.81 - Bacteremia Status: Acute Assessment and Plan: as noted by blood cultures: on 01/24 - Proteus mirabilis on 01/25 - Proteus mirabilis finished course of antibiotics continue supportive therapy (4) Metabolic acidosis: Code(s): E87.20 - Acidosis, unspecified Status: Acute Assessment and Plan: resolved due to RAJESH/ARF along with lactic acidosis lactic acid has normalized off bicarb IVFs as this time follow CO2 levels (5) Urinary tract infection: Qualifiers: Hematuria presence: with hematuria Urinary tract infection type: acute cystitis Qualified Code(s): N30.01 - Acute cystitis with hematuria Code(s): N39.0 - Urinary tract infection, site not specified Status: Acute Assessment and Plan: suspected based on UA on admission follow urine culture results - negative to date off antibiotics (6) Anemia: Code(s): D64.9 - Anemia, unspecified Status: Acute Assessment and Plan: due to RAJESH with a component of dilution from IVFs no need for CASIMIRO follow trend of H/H (7) Nephrolithiasis: Code(s): N20.0 - Calculus of kidney Status: Acute Assessment and Plan: as noted on admission imaging complicated by hydronephrosis Urology following s/p cystoscopy with right ureteral stent placement further intervention with regard to right kidney stone to be done at a later date.... (8) Encephalopathy: Code(s): G93.40 - Encephalopathy, unspecified Status: Acute Assessment and Plan: seems stable per family, has some short memory issues likely complicated by sepsis/infection and know history of leukodystrophy head CT negative normal TSH and ammonia follow mentation Would not be opposed to discharge from renal perspective if otherwise medically stable -- outpatient labs can be done to follow trend of improving kidney function. Will continue to follow intermittently. Subjective Date/time seen: 02/05/25 10:40 Interval history: Follow-up for acute kidney injury/acute renal failure. Renal function/creatinine continues to improve albeit slowly; stable hemodynamics noted and making reasonable urine output as well; no other issues or events noted overnight or earlier this morning. Exam Narrative: General: WD/WN male in NAD Heart: normal S1 and S2; no rub Lungs: clear anteriorly; decreased at bases Abdomen: soft, nontender, nondistended, positive bowel sounds Extremities: no cyanosis or clubbing; trace edema Skin: warm and intact Objective Data Vital Signs Vital Signs: Vital Signs Temp Pulse Resp BP Pulse Ox O2 Del Method 02/05/25 08:00 Room Air 02/05/25 04:43 97.0 F L 56 L 16 163/76 H 98 02/05/25 04:00 56 L 02/05/25 00:00 52 L 02/04/25 20:00 59 L 02/04/25 20:00 Room Air 02/04/25 19:20 97.5 F L 58 L 16 164/75 H 99 02/04/25 16:00 47 L 02/04/25 14:00 98.2 F 55 L 16 128/65 97 Intake/Output Intake/Output: Intake & Output 02/02/25 02/03/25 02/04/25 02/05/25 23:59 23:59 23:59 23:59 Intake Total 1720 1870 1410 640 Output Total 3275 2000 2400 752 [facility] -[phone] [phone] Meds/Results Medications: Active Medications Generic Name Dose Route Start Last Admin Trade Name Freq PRN Reason Stop Dose Admin Acetaminophen 650 mg 01/24/25 23:29 01/25/25 21:54 Acetaminophen 650 Mg Suppository RECTAL 650 mg Q6H PRN Administration Mild Pain (1-3) or Fever Acetaminophen 650 mg 01/25/25 04:57 01/25/25 15:55 Acetaminophen 325 Mg Tablet PO 650 mg Q4H PRN Administration Mild Pain (1-3) or Fever Aspirin 81 mg 01/27/25 09:00 02/05/25 08:19 Aspirin 81 Mg Chewable Tablet PO 81 mg DAILY [facility]ETER Administration Baclofen 5 mg 01/27/25 10:20 Baclofen 5 Mg Tablet PO BID PRN Muscle Spasm Cyanocobalamin 1,000 mcg 01/29/25 09:00 01/29/25 09:03 Cyanocobalamin Inj 1,000 Mcg/Ml Vial SUB-Q 1,000 mcg MONTHLY PIETER Administration Enoxaparin Sodium 30 mg 01/25/25 09:00 02/05/25 08:29 Enoxaparin 30 Mg/0.3 Ml Syringe SUB-Q Not Given DAILY [facility] Furosemide 20 mg 01/27/25 09:00 01/28/25 09:06 Furosemide 20 Mg Tablet PO 20 mg On Hold: 01/31/25 14:05 QAM [facility] Administration Isosorbide Mononitrate 15 mg 01/27/25 09:00 02/05/25 08:19 Isosorbide Mononitrate 15 Mg Tab.Er.24h PO 15 mg DAILY PIETER Administration Metoprolol Succinate 25 mg 01/27/25 09:00 02/05/25 08:20 Metoprolol Succinate Ext Rel 25 Mg Tabcr PO Not Given DAILY [facility] Ondansetron HCl 4 mg 01/25/25 04:57 Ondansetron Inj 4 Mg/2 Ml Vial IV PUSH Q4H PRN Nausea Oxybutynin Chloride 10 mg 01/27/25 09:00 02/05/25 08:19 Oxybutynin Chloride Xl 5 Mg Tab.Er.24 PO 10 mg DAILY PIETER Administration Pantoprazole Sodium 40 mg 01/28/25 09:00 02/05/25 08:19 Pantoprazole 40 Mg Tablet PO 40 mg QAM PIETER Administration Polyethylene Glycol 17 gm 02/02/25 17:00 02/05/25 08:19 Polyethylene Glycol 3350 17 Gm Powd.Pack PO 17 gm BID PIETER Administration Rosuvastatin Calcium 40 mg 01/27/25 09:00 02/05/25 08:19 Rosuvastatin 20 Mg Tablet PO 40 mg DAILY [facility]ETER Administration Senna 8.6 mg 02/02/25 17:00 02/05/25 08:19 Sennosides 8.6 Mg Tablet PO 8.6 mg BID PIETER Administration Sodium Chloride 20 ml 01/25/25 06:42 Central Line Flush IV PUSH PRN PRN after blood draws Radiology Results: ITS Impressions Head CT 01/25/25 08:55 Impression: No intracranial hemorrhage, mass, or acute infarct. Atrophy and chronic white matter changes, as above. Chest/Abdomen/Pelvis CT 01/25/25 08:58 Impression: 14 mm proximal right ureteral stone with mild right hydronephrosis. Additional small bilateral nonobstructing renal stones. Cholelithiasis. Small fat-containing umbilical hernia. Renal Ultrasound 01/26/25 21:46 Impression: 1: Unremarkable renal ultrasound. No stones, masses or hydronephrosis. Chest X-Ray 01/28/25 06:48 Impression: Clear lungs. Left subclavian line in place. Abdomen X-Ray 02/01/25 14:42 IMPRESSION: 1: No acute abdominal abnormality identified. Labs Labs: Laboratory Tests 02/05/25 06:13 02/05/25 06:13 Calcium 8.6 Total Bilirubin 0.4 AST 51 ALT 59 H Alkaline Phosphatase 156 H Total Protein 6.6 Albumin 3.3 L
--- NOTE | 2025-02-05 16:27 | P.PNIM_ITS ---
Progress Note: A&P Assessment and Plan (1) Septic shock: Code(s): A41.9 - Sepsis, unspecified organism; R65.21 - Severe sepsis with septic shock Status: Acute (2) Abnormal urinalysis: Code(s): R82.90 - Unspecified abnormal findings in urine Status: Acute Assessment and Plan: Patient was in septic shock likely secondary to urinary tract infection-off Levophed, hemodynamically stable, off IV fluid, medical with tele UA shows 2+ leukocyte is trace more than 100 WBC in the urine CT abdomen and pelvis shows cystitis and or changes due to prostatomegaly and right renal pelvis 1.2 cm stone with mild hydronephrosis Continue ceftriaxone to complete 10 days of antibiotics Leukocytes is up trending but he is afebrile, hemodynamically stable, did not think he has infected. (3) Acute kidney injury: Code(s): N17.9 - Acute kidney failure, unspecified Status: Acute Assessment and Plan: Likely secondary to septic shock On admission, creatinine 2.71, today 7.91 Nephrology is following, appreciate recs Kidney function is improving, has adequate urine output (4) Leukodystrophy: Onset Date: ~06/2021 Code(s): G31.80 - Leukodystrophy, unspecified Status: Acute (5) Overactive bladder: Code(s): N32.81 - Overactive bladder Status: Acute (6) Lactic acidosis: Code(s): E87.20 - Acidosis, unspecified Status: Acute Assessment and Plan: Lactic acid normalized (7) Chronic constipation: Code(s): K59.09 - Other constipation Status: Acute Assessment and Plan: MiraLax p.r.n. (8) Hydronephrosis: Qualifiers: Hydronephrosis type: with ureteral calculous obstruction Qualified Code(s): N13.2 - Hydronephrosis with renal and ureteral calculous obstruction Code(s): N13.30 - Unspecified hydronephrosis Status: Acute Assessment and Plan: Likely secondary to left kidney stone Status post cystoscopy, right 3 GERD, right stent placement 4.8 [place] Citizen 01/25/2025 by urology Plan for definitive to outpatient stone treatment and stent management (9) Edema of both feet: Code(s): R60.0 - Localized edema Status: Acute Assessment and Plan: Likely secondary to IV fluid 2D echo 03/14/2024 shows EF 55-60%, normal left ventricle systolic function, suspected diastolic function abnormal at that point On clinical exam there is no sign of cardiac dysfunction Feet edema is better today (10) Physical deconditioning: Code(s): R53.81 - Other malaise Status: Acute Assessment and Plan: Likely secondary to multifactorial etiology: Acute illness/immobility Physical therapy Dietary consult, to increase his oral intake Plan Physical therapy, and pending placement Kidney function is better today CMP tomorrow Subjective Date/time seen: 02/05/25 16:27 Interval history: No acute events overnight. Creatinine continues to improve. Review of Systems Review of Systems: Unobtainable due to patient's mentation. All systems reviewed & are unremarkable except as noted in HPI and below (HPI) Exam Narrative: Patient is comfortable, NAD HEENT: eyes are clear and none icteric LUNGS:CTA HEART: RR S1S2 ABD: BS+, Soft and nontender Lower extremities: no edema SKIN: nonjaundiced Neuro: grossly intact. Const: Other: looks tired. HENMT: Other: Head is normocephalic atraumatic, mucous membranes are dry, crowded posterior oropharynx, pupils are equal and reactive, positive conjunctival pallor, no scleral icterus Neck: Other: No lymphadenopathy, no JVD, no thyromegaly Chest: Other: no breathing difficulty, nonlabor breath Central line on left chest, dressing applied, no erythema Resp: Effort & Inspection: normal respiratory effort Auscultation: clear to auscultation bilaterally Other: Tachypnea with abdominal respirations, no wheezing, no rhonchi Cardio: Other: RRR, No murmur or gallop GI: Other: soft, but large body habitus to appreciate organomegally : Other: Incontinent of urine, blood tinged urine in depends, normal external genitalia Skin: Other: Hot to touch, diaphoretic, 2-3 second cap refill Neuro: Other: Response to verbal stimuli but inappropriate responses answering only yes or no, moves all extremities equally, no facial asymmetry, flat affect, patient has difficulty following commands in neuro exam was subsequently limited Extrem: Other: bilateral lower extremity edema Psych: Other: Flat affect, cooperative, poor judgment and insight Objective Data Vital Signs Vital Signs: Vital Signs - 24 hr 02/04/25 19:20 02/04/25 20:00 02/04/25 20:00 Temperature 97.5 F L Pulse Rate 58 L 59 L Respiratory Rate 16 Blood Pressure 164/75 H Pulse Oximetry 99 Oxygen Delivery Room Air 02/05/25 00:00 02/05/25 04:00 02/05/25 04:43 Temperature 97.0 F L Pulse Rate 52 L 56 L 56 L Respiratory Rate 16 Blood Pressure 163/76 H Pulse Oximetry 98 Oxygen Delivery 02/05/25 08:00 02/05/25 08:00 02/05/25 12:00 Temperature Pulse Rate 54 L 51 L Respiratory Rate Blood Pressure Pulse Oximetry Oxygen Delivery Room Air 02/05/25 14:00 02/05/25 16:00 Temperature 98.4 F Pulse Rate 52 L 55 L Respiratory Rate 18 Blood Pressure 118/59 L Pulse Oximetry 100 Oxygen Delivery Intake/Output Intake/Output: Intake & Output 02/02/25 02/03/25 02/04/25 02/05/25 23:59 23:59 23:59 23:59 Intake Total 1720 1870 1410 1120 Output Total 3275 2000 2400 950 [facility] -1555 -130 [phone] Meds/Results Medications: Active Medications Generic Name Dose Route Start Last Admin Trade Name Freq PRN Reason Stop Dose Admin Acetaminophen 650 mg 01/24/25 23:29 01/25/25 21:54 Acetaminophen 650 Mg Suppository RECTAL 650 mg Q6H PRN Administration Mild Pain (1-3) or Fever Acetaminophen 650 mg 01/25/25 04:57 01/25/25 15:55 Acetaminophen 325 Mg Tablet PO 650 mg Q4H PRN Administration Mild Pain (1-3) or Fever Aspirin 81 mg 01/27/25 09:00 02/05/25 08:19 Aspirin 81 Mg Chewable Tablet PO 81 mg DAILY PIETER Administration Baclofen 5 mg 01/27/25 10:20 Baclofen 5 Mg Tablet PO BID PRN Muscle Spasm Cyanocobalamin 1,000 mcg 01/29/25 09:00 01/29/25 09:03 Cyanocobalamin Inj 1,000 Mcg/Ml Vial SUB-Q 1,000 mcg MONTHLY PIETER Administration Enoxaparin Sodium 30 mg 01/25/25 09:00 02/05/25 08:29 Enoxaparin 30 Mg/0.3 Ml Syringe SUB-Q Not Given DAILY [facility] Furosemide 20 mg 01/27/25 09:00 01/28/25 09:06 Furosemide 20 Mg Tablet PO 20 mg On Hold: 01/31/25 14:05 QAM PIETER Administration Isosorbide Mononitrate 15 mg 01/27/25 09:00 02/05/25 08:19 Isosorbide Mononitrate 15 Mg Tab.Er.24h PO 15 mg DAILY PIETER Administration Metoprolol Succinate 25 mg 01/27/25 09:00 02/05/25 08:20 Metoprolol Succinate Ext Rel 25 Mg Tabcr PO Not Given DAILY [facility] Ondansetron HCl 4 mg 01/25/25 04:57 Ondansetron Inj 4 Mg/2 Ml Vial IV PUSH Q4H PRN Nausea Oxybutynin Chloride 10 mg 01/27/25 09:00 02/05/25 08:19 Oxybutynin Chloride Xl 5 Mg Tab.Er.24 PO 10 mg DAILY PIETER Administration Pantoprazole Sodium 40 mg 01/28/25 09:00 02/05/25 08:19 Pantoprazole 40 Mg Tablet PO 40 mg QAM [facility] Administration Polyethylene Glycol 17 gm 02/02/25 17:00 02/05/25 08:19 Polyethylene Glycol 3350 17 Gm Powd.Pack PO 17 gm BID PIETER Administration Rosuvastatin Calcium 40 mg 01/27/25 09:00 02/05/25 08:19 Rosuvastatin 20 Mg Tablet PO 40 mg DAILY [facility] Administration Senna 8.6 mg 02/02/25 17:00 02/05/25 08:19 Sennosides 8.6 Mg Tablet PO 8.6 mg BID PIETER Administration Sodium Chloride 20 ml 01/25/25 06:42 Central Line Flush IV PUSH PRN PRN after blood draws Radiology Results: ITS Impressions Head CT 01/25/25 08:55 Impression: No intracranial hemorrhage, mass, or acute infarct. Atrophy and chronic white matter changes, as above. Chest/Abdomen/Pelvis CT 01/25/25 08:58 Impression: 14 mm proximal right ureteral stone with mild right hydronephrosis. Additional small bilateral nonobstructing renal stones. Cholelithiasis. Small fat-containing umbilical hernia. Renal Ultrasound 01/26/25 21:46 Impression: 1: Unremarkable renal ultrasound. No stones, masses or hydronephrosis. Chest X-Ray 01/28/25 06:48 Impression: Clear lungs. Left subclavian line in place. Abdomen X-Ray 02/01/25 14:42 IMPRESSION: 1: No acute abdominal abnormality identified. Labs Labs: Laboratory Results - last 24 hr 02/05/25 06:13 WBC 11.7 H RBC 3.95 L Hgb 10.9 L Hct 34.5 L MCV 87.3 MCH 27.6 MCHC 31.6 L RDW 13.6 Plt Count 466 H MPV 10.5 H Sodium 139 Potassium 4.8 Chloride 106 Carbon Dioxide 23 Anion Gap 10 BUN 66 H Creatinine 5.54 H Estim Creat Clear Calc 17 Estimated GFR 11 L Glucose 108 Calcium 8.6 Total Bilirubin 0.4 AST 51 ALT 59 H Alkaline Phosphatase 156 H Total Protein 6.6 Albumin 3.3 L Quality VTE Prophylaxis VTE prophylaxis: pharmacologic ordered Hospitalist MIPS Advance Care Plan I have confirmed that the patient's Advanced Care Plan is present, code status is documented, or surrogate decision maker is listed in patient medical record.: Yes Medication Reconciliation I have utilized all available resources to obtain, update and review the patients current medications (includes all prescriptions, OTC, herbals, cannabis, and nutritional supplements).: Yes
[2025-02-06] VITALS (9 sets, daily range): BP systolic 122–137; BP diastolic 64–83; PULSE 50–58; RESP 16–20; TEMP 36.3–36.7; O2SAT 96–100
[2025-02-06 05:07] LABS: Hematocrit 33.6 % (42.0-52.0); Hemoglobin 10.5 g/dL (14.0-18.0); Mean Corpuscular HGB Conc 31.3 g/dl (32-36); Mean Corpuscular Hemoglobin 27.2 pg (26-34); Mean Corpuscular Volume 87.0 fl (80-100); Platelet Count Result 461 k/mm3 (150-375); Red Blood Count 3.86 M/mm3 (4.6-6.20); White Blood Count 10.0 K/mm3 (4.5-10.0)
[2025-02-06 05:29] LABS: Alanine Aminotransferase 47 U/L (6-50); Albumin Level 3.2 g/dL (3.5-5.1); Alkaline Phosphatase 136 U/L (38-126); Anion Gap 9 mmol/L (4-12); Aspartate Amino Transferase 41 U/L (17-59); Bilirubin,Total 0.3 mg/dL (0.2-1.3); Blood Urea Nitrogen 63 mg/dL (9-20); Calcium 8.8 mg/dL (8.4-10.2); Carbon Dioxide 23 mmol/L (22-30); Chloride 107 mmol/L (98-107); Estimated CRCL calculation 18 ml/min; Estimated Glomerular Filt Rate 12; Glucose 105 mg/dL (65-110); Potassium 4.4 mmol/L (3.4-5.0); Sodium 139 mmol/L (137-145); Total Protein 6.5 g/dL (6.3-8.2)
[2025-02-06] MEDS: ENOXAPARIN 30 MG/0.3 ML SYRINGE SUB-Q (08:43)
[2025-02-06] MEDS: ROSUVASTATIN 20 MG TABLET 40 MG PO (08:43)
[2025-02-06] MEDS: oxyBUTYnin CHLORIDE XL 5 MG TAB.ER.24 10 MG PO (08:43)
[2025-02-06] MEDS: PANTOPRAZOLE 40 MG TABLET PO (08:44)
[2025-02-06] MEDS: ISOSORBIDE MONONITRATE 15 MG TAB.ER.24H PO (08:44)
[2025-02-06] MEDS: SENNOSIDES 8.6 MG TABLET PO (08:44)
[2025-02-06] MEDS: ASPIRIN 81 MG CHEWABLE TABLET PO (08:44)
--- NOTE | 2025-02-06 10:11 | PM.IMPN ---
Progress Note: A&P Assessment and Plan (1) Septic shock: Code(s): A41.9 - Sepsis, unspecified organism; R65.21 - Severe sepsis with septic shock Status: Acute (2) Abnormal urinalysis: Code(s): R82.90 - Unspecified abnormal findings in urine Status: Acute Assessment and Plan: Patient was in septic shock likely secondary to urinary tract infection-off Levophed, hemodynamically stable, off IV fluid, medical with tele UA shows 2+ leukocyte is trace more than 100 WBC in the urine CT abdomen and pelvis shows cystitis and or changes due to prostatomegaly and right renal pelvis 1.2 cm stone with mild hydronephrosis Continue ceftriaxone to complete 10 days of antibiotics Leukocytes is up trending but he is afebrile, hemodynamically stable, did not think he has infected. (3) Acute kidney injury: Code(s): N17.9 - Acute kidney failure, unspecified Status: Acute Assessment and Plan: Likely secondary to septic shock On admission, creatinine 2.71, today 7.91 Nephrology is following, appreciate recs Kidney function is improving, has adequate urine output (4) Leukodystrophy: Onset Date: ~06/2021 Code(s): G31.80 - Leukodystrophy, unspecified Status: Acute (5) Overactive bladder: Code(s): N32.81 - Overactive bladder Status: Acute (6) Lactic acidosis: Code(s): E87.20 - Acidosis, unspecified Status: Acute Assessment and Plan: Lactic acid normalized (7) Chronic constipation: Code(s): K59.09 - Other constipation Status: Acute Assessment and Plan: MiraLax p.r.n. (8) Hydronephrosis: Qualifiers: Hydronephrosis type: with ureteral calculous obstruction Qualified Code(s): N13.2 - Hydronephrosis with renal and ureteral calculous obstruction Code(s): N13.30 - Unspecified hydronephrosis Status: Acute Assessment and Plan: Likely secondary to left kidney stone Status post cystoscopy, right 3 GERD, right stent placement 4.8 [place] 01/25/2025 by urology Plan for definitive to outpatient stone treatment and stent management (9) Edema of both feet: Code(s): R60.0 - Localized edema Status: Acute Assessment and Plan: Likely secondary to IV fluid 2D echo 03/14/2024 shows EF 55-60%, normal left ventricle systolic function, suspected diastolic function abnormal at that point On clinical exam there is no sign of cardiac dysfunction Feet edema is better today (10) Physical deconditioning: Code(s): R53.81 - Other malaise Status: Acute Assessment and Plan: Likely secondary to multifactorial etiology: Acute illness/immobility Physical therapy Dietary consult, to increase his oral intake Plan Physical therapy, and pending placement Kidney function is better today CMP tomorrow Subjective Date/time seen: 02/06/25 10:11 Interval history: Patient creatinine trending down. Discussed with Nephrology for possible discharge tomorrow . Patient has episodes of bradycardia will continue hold metoprolol Review of Systems Review of Systems: Unobtainable due to patient's mentation. All systems reviewed & are unremarkable except as noted in HPI and below (HPI) Exam Narrative: Patient is comfortable, NAD HEENT: eyes are clear and none icteric LUNGS:CTA HEART: RR S1S2 ABD: BS+, Soft and nontender Lower extremities: no edema SKIN: nonjaundiced Neuro: grossly intact. Const: Other: looks tired. HENMT: Other: Head is normocephalic atraumatic, mucous membranes are dry, crowded posterior oropharynx, pupils are equal and reactive, positive conjunctival pallor, no scleral icterus Neck: Other: No lymphadenopathy, no JVD, no thyromegaly Chest: Other: no breathing difficulty, nonlabor breath Central line on left chest, dressing applied, no erythema Resp: Effort & Inspection: normal respiratory effort Auscultation: clear to auscultation bilaterally Other: Tachypnea with abdominal respirations, no wheezing, no rhonchi Cardio: Other: RRR, No murmur or gallop GI: Other: soft, but large body habitus to appreciate organomegally : Other: Incontinent of urine, blood tinged urine in depends, normal external genitalia Skin: Other: Hot to touch, diaphoretic, 2-3 second cap refill Neuro: Other: Response to verbal stimuli but inappropriate responses answering only yes or no, moves all extremities equally, no facial asymmetry, flat affect, patient has difficulty following commands in neuro exam was subsequently limited Extrem: Other: bilateral lower extremity edema Psych: Other: Flat affect, cooperative, poor judgment and insight Objective Data Vital Signs Vital Signs: Vital Signs - 24 hr 02/05/25 12:00 02/05/25 14:00 02/05/25 16:00 Temperature 98.4 F Pulse Rate 51 L 52 L 55 L Respiratory Rate 18 Blood Pressure 118/59 L Pulse Oximetry 100 Oxygen Delivery Fraction of Inspired Oxygen 02/05/25 20:00 02/05/25 20:00 02/05/25 22:00 Temperature 98.4 F Pulse Rate 56 L 55 L 56 L Respiratory Rate 18 18 Blood Pressure 134/73 Pulse Oximetry 100 100 Oxygen Delivery Room Air Fraction of Inspired Oxygen 21 02/06/25 00:00 02/06/25 04:00 02/06/25 04:40 Temperature 98.1 F Pulse Rate 57 L 50 L 52 L Respiratory Rate 16 Blood Pressure 131/83 Pulse Oximetry 97 Oxygen Delivery Fraction of Inspired Oxygen 02/06/25 08:00 02/06/25 08:00 Temperature Pulse Rate 52 L 52 L Respiratory Rate 16 Blood Pressure Pulse Oximetry 97 Oxygen Delivery Room Air Fraction of Inspired Oxygen 21 Intake/Output Intake/Output: Intake & Output 02/03/25 02/04/25 02/05/25 02/06/25 23:59 23:59 23:59 23:59 Intake Total 1870 1410 3100 350 Output Total 2000 2400 1350 1200 Balance -130 -990 1750 -850 Meds/Results Medications: Active Medications Generic Name Dose Route Start Last Admin Trade Name Freq PRN Reason Stop Dose Admin Acetaminophen 650 mg 01/24/25 23:29 01/25/25 21:54 Acetaminophen 650 Mg Suppository RECTAL 650 mg Q6H PRN Administration Mild Pain (1-3) or Fever Acetaminophen 650 mg 01/25/25 04:57 01/25/25 15:55 Acetaminophen 325 Mg Tablet PO 650 mg Q4H PRN Administration Mild Pain (1-3) or Fever Aspirin 81 mg 01/27/25 09:00 02/06/25 08:44 Aspirin 81 Mg Chewable Tablet PO 81 mg DAILY [facility] Administration Baclofen 5 mg 01/27/25 10:20 Baclofen 5 Mg Tablet PO BID PRN Muscle Spasm Cyanocobalamin 1,000 mcg 01/29/25 09:00 01/29/25 09:03 Cyanocobalamin Inj 1,000 Mcg/Ml Vial SUB-Q 1,000 mcg MONTHLY [facility] Administration Enoxaparin Sodium 30 mg 01/25/25 09:00 02/06/25 08:43 Enoxaparin 30 Mg/0.3 Ml Syringe SUB-Q 30 mg DAILY [facility] Administration Furosemide 20 mg 01/27/25 09:00 01/28/25 09:06 Furosemide 20 Mg Tablet PO 20 mg On Hold: 01/31/25 14:05 QAM [facility] Administration Isosorbide Mononitrate 15 mg 01/27/25 09:00 02/06/25 08:44 Isosorbide Mononitrate 15 Mg Tab.Er.24h PO 15 mg DAILY [facility] Administration Metoprolol Succinate 25 mg 01/27/25 09:00 02/05/25 08:20 Metoprolol Succinate Ext Rel 25 Mg Tabcr PO Not Given On Hold: 02/05/25 18:19 DAILY [facility] Ondansetron HCl 4 mg 01/25/25 04:57 Ondansetron Inj 4 Mg/2 Ml Vial IV PUSH Q4H PRN Nausea Oxybutynin Chloride 10 mg 01/27/25 09:00 02/06/25 08:43 Oxybutynin Chloride Xl 5 Mg Tab.Er.24 PO 10 mg DAILY [facility] Administration Pantoprazole Sodium 40 mg 01/28/25 09:00 02/06/25 08:44 Pantoprazole 40 Mg Tablet PO 40 mg QAM [facility] Administration Polyethylene Glycol 17 gm 02/02/25 17:00 02/06/25 08:42 Polyethylene Glycol 3350 17 Gm Powd.Pack PO Not Given BID [facility] Rosuvastatin Calcium 40 mg 01/27/25 09:00 02/06/25 08:43 Rosuvastatin 20 Mg Tablet PO 40 mg DAILY [facility] Administration Senna 8.6 mg 02/02/25 17:00 02/06/25 08:44 Sennosides 8.6 Mg Tablet PO 8.6 mg BID [facility] Administration Sodium Chloride 20 ml 01/25/25 06:42 Central Line Flush IV PUSH PRN PRN after blood draws Radiology Results: ITS Impressions Head CT 01/25/25 08:55 Impression: No intracranial hemorrhage, mass, or acute infarct. Atrophy and chronic white matter changes, as above. Chest/Abdomen/Pelvis CT 01/25/25 08:58 Impression: 14 mm proximal right ureteral stone with mild right hydronephrosis. Additional small bilateral nonobstructing renal stones. Cholelithiasis. Small fat-containing umbilical hernia. Renal Ultrasound 01/26/25 21:46 Impression: 1: Unremarkable renal ultrasound. No stones, masses or hydronephrosis. Chest X-Ray 01/28/25 06:48 Impression: Clear lungs. Left subclavian line in place. Abdomen X-Ray 02/01/25 14:42 IMPRESSION: 1: No acute abdominal abnormality identified. Labs Labs: Laboratory Results - last 24 hr 02/06/25 04:48 WBC 10.0 RBC 3.86 L Hgb 10.5 L Hct 33.6 L MCV 87.0 MCH 27.2 MCHC 31.3 L RDW 13.9 Plt Count 461 H MPV 10.4 Sodium 139 Potassium 4.4 Chloride 107 Carbon Dioxide 23 Anion Gap 9 BUN 63 H Creatinine 5.05 H Estim Creat Clear Calc 18 Estimated GFR 12 L Glucose 105 Calcium 8.8 Total Bilirubin 0.3 AST 41 ALT 47 Alkaline Phosphatase 136 H Total Protein 6.5 Albumin 3.2 L Quality VTE Prophylaxis VTE prophylaxis: pharmacologic ordered Hospitalist [facility] Advance Care Plan I have confirmed that the patient's Advanced Care Plan is present, code status is documented, or surrogate decision maker is listed in patient medical record.: Yes Medication Reconciliation I have utilized all available resources to obtain, update and review the patients current medications (includes all prescriptions, OTC, herbals, cannabis, and nutritional supplements).: Yes
[2025-02-07] VITALS (9 sets, daily range): BP systolic 108–128; BP diastolic 60–76; PULSE 46–58; RESP 14–18; TEMP 36.1–37.1; O2SAT 95–100
[2025-02-07 05:03] LABS: Hematocrit 33.2 % (42.0-52.0); Hemoglobin 10.5 g/dL (14.0-18.0); Mean Corpuscular HGB Conc 31.6 g/dl (32-36); Mean Corpuscular Hemoglobin 27.6 pg (26-34); Mean Corpuscular Volume 87.4 fl (80-100); Platelet Count Result 477 k/mm3 (150-375); Red Blood Count 3.80 M/mm3 (4.6-6.20); White Blood Count 10.8 K/mm3 (4.5-10.0)
[2025-02-07 05:24] LABS: Alanine Aminotransferase 46 U/L (6-50); Albumin Level 3.4 g/dL (3.5-5.1); Alkaline Phosphatase 136 U/L (38-126); Anion Gap 10 mmol/L (4-12); Aspartate Amino Transferase 39 U/L (17-59); Bilirubin,Total 0.4 mg/dL (0.2-1.3); Blood Urea Nitrogen 58 mg/dL (9-20); Calcium 8.7 mg/dL (8.4-10.2); Carbon Dioxide 22 mmol/L (22-30); Chloride 106 mmol/L (98-107); Estimated CRCL calculation 18 ml/min; Estimated Glomerular Filt Rate 12; Glucose 104 mg/dL (65-110); Potassium 4.7 mmol/L (3.4-5.0); Sodium 138 mmol/L (137-145); Total Protein 6.6 g/dL (6.3-8.2)
[2025-02-07] MEDS: ROSUVASTATIN 20 MG TABLET 40 MG PO (08:17)
[2025-02-07] MEDS: PANTOPRAZOLE 40 MG TABLET PO (08:18)
[2025-02-07] MEDS: ASPIRIN 81 MG CHEWABLE TABLET PO (08:18)
[2025-02-07] MEDS: oxyBUTYnin CHLORIDE XL 5 MG TAB.ER.24 10 MG PO (08:18)
[2025-02-07] MEDS: SENNOSIDES 8.6 MG TABLET PO (08:18)
[2025-02-07] MEDS: ISOSORBIDE MONONITRATE 15 MG TAB.ER.24H PO (08:18)
[2025-02-07] MEDS: ENOXAPARIN 30 MG/0.3 ML SYRINGE SUB-Q (08:18)
--- NOTE | 2025-02-07 14:26 | PM.IMPN ---
Progress Note: A&P Assessment and Plan (1) Septic shock: Code(s): A41.9 - Sepsis, unspecified organism; R65.21 - Severe sepsis with septic shock Status: Acute (2) Abnormal urinalysis: Code(s): R82.90 - Unspecified abnormal findings in urine Status: Acute Assessment and Plan: Patient was in septic shock likely secondary to urinary tract infection-off Levophed, hemodynamically stable, off IV fluid, medical with tele UA shows 2+ leukocyte is trace more than 100 WBC in the urine CT abdomen and pelvis shows cystitis and or changes due to prostatomegaly and right renal pelvis 1.2 cm stone with mild hydronephrosis Continue ceftriaxone to complete 10 days of antibiotics Leukocytes is up trending but he is afebrile, hemodynamically stable, did not think he has infected. (3) Acute kidney injury: Code(s): N17.9 - Acute kidney failure, unspecified Status: Acute Assessment and Plan: Likely secondary to septic shock On admission, creatinine 2.71, today 7.91 Nephrology is following, appreciate recs Kidney function is improving, has adequate urine output (4) Leukodystrophy: Onset Date: ~06/2021 Code(s): G31.80 - Leukodystrophy, unspecified Status: Acute (5) Overactive bladder: Code(s): N32.81 - Overactive bladder Status: Acute (6) Lactic acidosis: Code(s): E87.20 - Acidosis, unspecified Status: Acute Assessment and Plan: Lactic acid normalized (7) Chronic constipation: Code(s): K59.09 - Other constipation Status: Acute Assessment and Plan: MiraLax p.r.n. (8) Hydronephrosis: Qualifiers: Hydronephrosis type: with ureteral calculous obstruction Qualified Code(s): N13.2 - Hydronephrosis with renal and ureteral calculous obstruction Code(s): N13.30 - Unspecified hydronephrosis Status: Acute Assessment and Plan: Likely secondary to left kidney stone Status post cystoscopy, right 3 GERD, right stent placement 4.8 [place] 01/25/2025 by urology Plan for definitive to outpatient stone treatment and stent management (9) Edema of both feet: Code(s): R60.0 - Localized edema Status: Acute Assessment and Plan: Likely secondary to IV fluid 2D echo 03/14/2024 shows EF 55-60%, normal left ventricle systolic function, suspected diastolic function abnormal at that point On clinical exam there is no sign of cardiac dysfunction Feet edema is better today (10) Physical deconditioning: Code(s): R53.81 - Other malaise Status: Acute Assessment and Plan: Likely secondary to multifactorial etiology: Acute illness/immobility Physical therapy Dietary consult, to increase his oral intake Plan Physical therapy, and pending placement Kidney function is better today CMP tomorrow Subjective Date/time seen: 02/07/25 14:26 Interval history: Creatinine continue to trending down. Acute events overnight. Review of Systems Review of Systems: Unobtainable due to patient's mentation. All systems reviewed & are unremarkable except as noted in HPI and below (HPI) Exam Narrative: Patient is comfortable, NAD HEENT: eyes are clear and none icteric LUNGS:CTA HEART: RR S1S2 ABD: BS+, Soft and nontender Lower extremities: no edema SKIN: nonjaundiced Neuro: grossly intact. Const: Other: looks tired. HENMT: Other: Head is normocephalic atraumatic, mucous membranes are dry, crowded posterior oropharynx, pupils are equal and reactive, positive conjunctival pallor, no scleral icterus Neck: Other: No lymphadenopathy, no JVD, no thyromegaly Chest: Other: no breathing difficulty, nonlabor breath Central line on left chest, dressing applied, no erythema Resp: Effort & Inspection: normal respiratory effort Auscultation: clear to auscultation bilaterally Other: Tachypnea with abdominal respirations, no wheezing, no rhonchi Cardio: Other: RRR, No murmur or gallop GI: Other: soft, but large body habitus to appreciate organomegally : Other: Incontinent of urine, blood tinged urine in depends, normal external genitalia Skin: Other: Hot to touch, diaphoretic, 2-3 second cap refill Neuro: Other: Response to verbal stimuli but inappropriate responses answering only yes or no, moves all extremities equally, no facial asymmetry, flat affect, patient has difficulty following commands in neuro exam was subsequently limited Extrem: Other: bilateral lower extremity edema Psych: Other: Flat affect, cooperative, poor judgment and insight Objective Data Vital Signs Vital Signs: Vital Signs - 24 hr 02/06/25 16:00 02/06/25 20:00 02/06/25 20:00 Temperature Pulse Rate 52 L 51 L 54 L Respiratory Rate 16 Blood Pressure Pulse Oximetry 96 Oxygen Delivery Room Air Fraction of Inspired Oxygen 21 02/06/25 22:00 02/07/25 00:00 02/07/25 04:00 Temperature 97.3 F L Pulse Rate 51 L 58 L 54 L Respiratory Rate 16 Blood Pressure 137/77 Pulse Oximetry 96 Oxygen Delivery Fraction of Inspired Oxygen 02/07/25 04:36 02/07/25 08:00 02/07/25 08:00 Temperature 98.8 F Pulse Rate 55 L 55 L Respiratory Rate 16 Blood Pressure 128/76 Pulse Oximetry 95 Oxygen Delivery Room Air Fraction of Inspired Oxygen 02/07/25 12:00 Temperature Pulse Rate 46 L Respiratory Rate Blood Pressure Pulse Oximetry Oxygen Delivery Fraction of Inspired Oxygen Intake/Output Intake/Output: Intake & Output 02/04/25 02/05/25 02/06/25 02/07/25 23:59 23:59 23:59 23:59 Intake Total 1410 3100 3290 1030 Output Total 2400 1350 3000 750 Balance -990 1750 290 280 Meds/Results Medications: Active Medications Generic Name Dose Route Start Last Admin Trade Name Freq PRN Reason Stop Dose Admin Acetaminophen 650 mg 01/24/25 23:29 01/25/25 21:54 Acetaminophen 650 Mg Suppository RECTAL 650 mg Q6H PRN Administration Mild Pain (1-3) or Fever Acetaminophen 650 mg 01/25/25 04:57 01/25/25 15:55 Acetaminophen 325 Mg Tablet PO 650 mg Q4H PRN Administration Mild Pain (1-3) or Fever Aspirin 81 mg 01/27/25 09:00 02/07/25 08:18 Aspirin 81 Mg Chewable Tablet PO 81 mg DAILY [facility] Administration Baclofen 5 mg 01/27/25 10:20 Baclofen 5 Mg Tablet PO BID PRN Muscle Spasm Cyanocobalamin 1,000 mcg 01/29/25 09:00 01/29/25 09:03 Cyanocobalamin Inj 1,000 Mcg/Ml Vial SUB-Q 1,000 mcg MONTHLY [facility] Administration Enoxaparin Sodium 30 mg 01/25/25 09:00 02/07/25 08:18 Enoxaparin 30 Mg/0.3 Ml Syringe SUB-Q 30 mg DAILY [facility] Administration Furosemide 20 mg 01/27/25 09:00 01/28/25 09:06 Furosemide 20 Mg Tablet PO 20 mg On Hold: 01/31/25 14:05 QAM [facility] Administration Isosorbide Mononitrate 15 mg 01/27/25 09:00 02/07/25 08:18 Isosorbide Mononitrate 15 Mg Tab.Er.24h PO 15 mg DAILY [facility] Administration Metoprolol Succinate 25 mg 01/27/25 09:00 02/05/25 08:20 Metoprolol Succinate Ext Rel 25 Mg Tabcr PO Not Given On Hold: 02/05/25 18:19 DAILY [facility] Ondansetron HCl 4 mg 01/25/25 04:57 Ondansetron Inj 4 Mg/2 Ml Vial IV PUSH Q4H PRN Nausea Oxybutynin Chloride 10 mg 01/27/25 09:00 02/07/25 08:18 Oxybutynin Chloride Xl 5 Mg Tab.Er.24 PO 10 mg DAILY [facility] Administration Pantoprazole Sodium 40 mg 01/28/25 09:00 02/07/25 08:18 Pantoprazole 40 Mg Tablet PO 40 mg QAM [facility] Administration Polyethylene Glycol 17 gm 02/02/25 17:00 02/07/25 08:17 Polyethylene Glycol 3350 17 Gm Powd.Pack PO 17 gm BID [facility] Administration Rosuvastatin Calcium 40 mg 01/27/25 09:00 02/07/25 08:17 Rosuvastatin 20 Mg Tablet PO 40 mg DAILY [facility] Administration Senna 8.6 mg 02/02/25 17:00 02/07/25 08:18 Sennosides 8.6 Mg Tablet PO 8.6 mg BID [facility] Administration Sodium Chloride 20 ml 01/25/25 06:42 Central Line Flush IV PUSH PRN PRN after blood draws Radiology Results: ITS Impressions Head CT 01/25/25 08:55 Impression: No intracranial hemorrhage, mass, or acute infarct. Atrophy and chronic white matter changes, as above. Chest/Abdomen/Pelvis CT 01/25/25 08:58 Impression: 14 mm proximal right ureteral stone with mild right hydronephrosis. Additional small bilateral nonobstructing renal stones. Cholelithiasis. Small fat-containing umbilical hernia. Renal Ultrasound 01/26/25 21:46 Impression: 1: Unremarkable renal ultrasound. No stones, masses or hydronephrosis. Chest X-Ray 01/28/25 06:48 Impression: Clear lungs. Left subclavian line in place. Abdomen X-Ray 02/01/25 14:42 IMPRESSION: 1: No acute abdominal abnormality identified. Labs Labs: Laboratory Results - last 24 hr 02/07/25 04:54 WBC 10.8 H RBC 3.80 L Hgb 10.5 L Hct 33.2 L MCV 87.4 MCH 27.6 MCHC 31.6 L RDW 13.8 Plt Count 477 H MPV 10.6 H Sodium 138 Potassium 4.7 Chloride 106 Carbon Dioxide 22 Anion Gap 10 BUN 58 H Creatinine 5.02 H Estim Creat Clear Calc 18 Estimated GFR 12 L Glucose 104 Calcium 8.7 Total Bilirubin 0.4 AST 39 ALT 46 Alkaline Phosphatase 136 H Total Protein 6.6 Albumin 3.4 L Quality VTE Prophylaxis VTE prophylaxis: pharmacologic ordered Hospitalist [facility] Advance Care Plan I have confirmed that the patient's Advanced Care Plan is present, code status is documented, or surrogate decision maker is listed in patient medical record.: Yes Medication Reconciliation I have utilized all available resources to obtain, update and review the patients current medications (includes all prescriptions, OTC, herbals, cannabis, and nutritional supplements).: Yes
[2025-02-07] MEDS: NEOMYCIN/POLYMYXIN/BACITRACIN OINTMENT PACKET 1 PACKET (18:42)
[2025-02-08] VITALS (10 sets, daily range): BP systolic 110–115; BP diastolic 60–69; PULSE 48–59; RESP 16–20; TEMP 35.9–36.8; O2SAT 97–99
[2025-02-08 05:17] LABS: Hematocrit 37.6 % (42.0-52.0); Hemoglobin 11.8 g/dL (14.0-18.0); Mean Corpuscular HGB Conc 31.4 g/dl (32-36); Mean Corpuscular Hemoglobin 27.5 pg (26-34); Mean Corpuscular Volume 87.6 fl (80-100); Platelet Count Result 475 k/mm3 (150-375); Red Blood Count 4.29 M/mm3 (4.6-6.20); White Blood Count 10.0 K/mm3 (4.5-10.0)
[2025-02-08 05:37] LABS: Alanine Aminotransferase 47 U/L (6-50); Albumin Level 3.6 g/dL (3.5-5.1); Alkaline Phosphatase 140 U/L (38-126); Anion Gap 10 mmol/L (4-12); Aspartate Amino Transferase 50 U/L (17-59); Bilirubin,Total 0.5 mg/dL (0.2-1.3); Blood Urea Nitrogen 56 mg/dL (9-20); Calcium 8.9 mg/dL (8.4-10.2); Carbon Dioxide 22 mmol/L (22-30); Chloride 106 mmol/L (98-107); Estimated CRCL calculation 21 ml/min; Estimated Glomerular Filt Rate 14; Glucose 101 mg/dL (65-110); Potassium 4.5 mmol/L (3.4-5.0); Sodium 138 mmol/L (137-145); Total Protein 6.9 g/dL (6.3-8.2)
[2025-02-08] MEDS: oxyBUTYnin CHLORIDE XL 5 MG TAB.ER.24 10 MG PO (09:37)
[2025-02-08] MEDS: ISOSORBIDE MONONITRATE 15 MG TAB.ER.24H PO (09:37)
[2025-02-08] MEDS: SENNOSIDES 8.6 MG TABLET PO ×2 (09:37→18:00)
[2025-02-08] MEDS: PANTOPRAZOLE 40 MG TABLET PO (09:37)
[2025-02-08] MEDS: ROSUVASTATIN 20 MG TABLET 40 MG PO (09:37)
[2025-02-08] MEDS: ASPIRIN 81 MG CHEWABLE TABLET PO (09:37)
[2025-02-08] MEDS: ENOXAPARIN 30 MG/0.3 ML SYRINGE SUB-Q (09:38)
--- NOTE | 2025-02-08 10:16 | P.PNIM_ITS ---
Progress Note: A&P Assessment and Plan (1) Septic shock: Code(s): A41.9 - Sepsis, unspecified organism; R65.21 - Severe sepsis with septic shock Status: Acute Assessment and Plan: * Patient was in septic shock likely secondary to urinary tract infection-off Levophed, hemodynamically stable, off IV fluid, medical with tele (2) Abnormal urinalysis: Code(s): R82.90 - Unspecified abnormal findings in urine Status: Acute Assessment and Plan: * Patient was in septic shock likely secondary to urinary tract infection-off Levophed, hemodynamically stable, off IV fluid, medical with tele * UA shows 2+ leukocyte is trace more than 100 WBC in the urine. Urine culture grew Proteus Mirabilis. * CT abdomen and pelvis shows cystitis and or changes due to prostatomegaly and right renal pelvis 1.2 cm stone with mild hydronephrosis * Completed ceftriaxone to complete 10 days of antibiotics. * WBC 10.0. (3) Acute kidney injury: Code(s): N17.9 - Acute kidney failure, unspecified Status: Acute Assessment and Plan: * Likely secondary to septic shock * On admission, creatinine 2.71, 5.02 yesterday, today 4.42. * Nephrology is following, appreciate recs * Kidney function is improving, has adequate urine output (4) Leukodystrophy: Onset Date: ~06/2021 Code(s): G31.80 - Leukodystrophy, unspecified Status: Acute Assessment and Plan: * Lives at [facility]. (5) Overactive bladder: Code(s): N32.81 - Overactive bladder Status: Acute Assessment and Plan: * Oxybutynin 10 mg PO daily. (6) Lactic acidosis: Code(s): E87.20 - Acidosis, unspecified Status: Acute Assessment and Plan: * Lactic acid normalized (7) Chronic constipation: Code(s): K59.09 - Other constipation Status: Acute Assessment and Plan: * MiraLax p.r.n. (8) Hydronephrosis: Qualifiers: Hydronephrosis type: with ureteral calculous obstruction Qualified Code(s): N13.2 - Hydronephrosis with renal and ureteral calculous obstruction Code(s): N13.30 - Unspecified hydronephrosis Status: Acute Assessment and Plan: * Likely secondary to left kidney stone. * Status post cystoscopy, right 3 GERD, right stent placement 4.8 Yoruba 01/25/2025 by urology. * Plan for definitive to outpatient stone treatment and stent management. (9) Edema of both feet: Code(s): R60.0 - Localized edema Status: Acute Assessment and Plan: * Likely secondary to IV fluid * 2D echo 03/14/2024 shows EF 55-60%, normal left ventricle systolic function, suspected diastolic function abnormal at that point * On clinical exam there is no sign of cardiac dysfunction * Feet edema is better today (10) Physical deconditioning: Code(s): R53.81 - Other malaise Status: Acute Assessment and Plan: * Likely secondary to multifactorial etiology: Acute illness/immobility * Physical therapy/ Occupational therapy. * Dietary consult, to increase his oral intake. Improving. (11) Bradycardia: Code(s): R00.1 - Bradycardia, unspecified Status: Acute Assessment and Plan: * SB 51. * Metoprolol is on Hold. Plan Physical therapy, and pending placement Subjective Date/time seen: 02/08/25 10:16 Interval history: Patient is sitting up in bed. Patient denies chest pain, palpitations, headache, dizziness, nausea, or vomiting. Review of Systems Review of Systems: All systems reviewed & are unremarkable except as noted in HPI and below Exam Const: General: comfortable and no acute distress Resp: Effort & Inspection: normal respiratory effort Auscultation: clear to auscultation bilaterally Cardio: Rate: bradycardic Rhythm: regular rhythm Other: Telemetry- SB 51. GI: GI Palp: Yes Soft to palpation Auscultation: normal bowel sounds Neuro: Speech: normal speech Extrem: General: no pedal edema Psych: Mental Status: mental status grossly normal Affect: normal affect Objective Data Vital Signs Vital Signs: Vital Signs - 24 hr 02/07/25 12:00 02/07/25 14:00 02/07/25 16:00 Temperature 98.1 F Pulse Rate 46 L 55 L 56 L Respiratory Rate 18 Blood Pressure 108/60 Pulse Oximetry 100 Oxygen Delivery 02/07/25 20:00 02/07/25 20:00 02/07/25 21:56 Temperature 96.9 F L Pulse Rate 55 L 54 L Respiratory Rate 14 Blood Pressure 116/68 Pulse Oximetry 98 Oxygen Delivery Room Air 02/08/25 00:00 02/08/25 04:00 02/08/25 06:00 Temperature 96.6 F L Pulse Rate 52 L 55 L 51 L Respiratory Rate 16 Blood Pressure 115/69 Pulse Oximetry 98 Oxygen Delivery 02/08/25 08:00 Temperature Pulse Rate Respiratory Rate Blood Pressure Pulse Oximetry Oxygen Delivery Room Air Intake/Output Intake/Output: Intake & Output 02/05/25 02/06/25 02/07/25 02/08/25 23:59 23:59 23:59 23:59 Intake Total 3100 3290 4040 240 Output Total 1350 3000 2450 1200 Balance 7602 038 5265 -960 Meds/Results Medications: Active Medications Generic Name Dose Route Start Last Admin Trade Name Freq PRN Reason Stop Dose Admin Acetaminophen 650 mg 01/24/25 23:29 01/25/25 21:54 Acetaminophen 650 Mg Suppository RECTAL 650 mg Q6H PRN Administration Mild Pain (1-3) or Fever Acetaminophen 650 mg 01/25/25 04:57 01/25/25 15:55 Acetaminophen 325 Mg Tablet PO 650 mg Q4H PRN Administration Mild Pain (1-3) or Fever Aspirin 81 mg 01/27/25 09:00 02/08/25 09:37 Aspirin 81 Mg Chewable Tablet PO 81 mg DAILY PIETER Administration Baclofen 5 mg 01/27/25 10:20 Baclofen 5 Mg Tablet PO BID PRN Muscle Spasm Cyanocobalamin 1,000 mcg 01/29/25 09:00 01/29/25 09:03 Cyanocobalamin Inj 1,000 Mcg/Ml Vial SUB-Q 1,000 mcg MONTHLY PIETER Administration Enoxaparin Sodium 30 mg 01/25/25 09:00 02/08/25 09:38 Enoxaparin 30 Mg/0.3 Ml Syringe SUB-Q 30 mg DAILY PIETER Administration Furosemide 20 mg 01/27/25 09:00 01/28/25 09:06 Furosemide 20 Mg Tablet PO 20 mg On Hold: 01/31/25 14:05 QAM PIETER Administration Isosorbide Mononitrate 15 mg 01/27/25 09:00 02/08/25 09:37 Isosorbide Mononitrate 15 Mg Tab.Er.24h PO 15 mg DAILY PIETER Administration Metoprolol Succinate 25 mg 01/27/25 09:00 02/05/25 08:20 Metoprolol Succinate Ext Rel 25 Mg Tabcr PO Not Given On Hold: 02/05/25 18:19 DAILY PIETER Ondansetron HCl 4 mg 01/25/25 04:57 Ondansetron Inj 4 Mg/2 Ml Vial IV PUSH Q4H PRN Nausea Oxybutynin Chloride 10 mg 01/27/25 09:00 02/08/25 09:37 Oxybutynin Chloride Xl 5 Mg Tab.Er.24 PO 10 mg DAILY PIETER Administration Pantoprazole Sodium 40 mg 01/28/25 09:00 02/08/25 09:37 Pantoprazole 40 Mg Tablet PO 40 mg QAM PIETER Administration Polyethylene Glycol 17 gm 02/02/25 17:00 02/08/25 09:37 Polyethylene Glycol 3350 17 Gm Powd.Pack PO 17 gm BID PIETER Administration Rosuvastatin Calcium 40 mg 01/27/25 09:00 02/08/25 09:37 Rosuvastatin 20 Mg Tablet PO 40 mg DAILY PIETER Administration Senna 8.6 mg 02/02/25 17:00 02/08/25 09:37 Sennosides 8.6 Mg Tablet PO 8.6 mg BID PIETER Administration Sodium Chloride 20 ml 01/25/25 06:42 Central Line Flush IV PUSH PRN PRN after blood draws Radiology Results: ITS Impressions Head CT 01/25/25 08:55 Impression: No intracranial hemorrhage, mass, or acute infarct. Atrophy and chronic white matter changes, as above. Chest/Abdomen/Pelvis CT 01/25/25 08:58 Impression: 14 mm proximal right ureteral stone with mild right hydronephrosis. Additional small bilateral nonobstructing renal stones. Cholelithiasis. Small fat-containing umbilical hernia. Renal Ultrasound 01/26/25 21:46 Impression: 1: Unremarkable renal ultrasound. No stones, masses or hydronephrosis. Chest X-Ray 01/28/25 06:48 Impression: Clear lungs. Left subclavian line in place. Abdomen X-Ray 02/01/25 14:42 IMPRESSION: 1: No acute abdominal abnormality identified. Labs Labs: Laboratory Results - last 24 hr 02/08/25 04:38 WBC 10.0 RBC 4.29 L Hgb 11.8 L Hct 37.6 L MCV 87.6 MCH 27.5 MCHC 31.4 L RDW 13.7 Plt Count 475 H MPV 10.8 H Sodium 138 Potassium 4.5 Chloride 106 Carbon Dioxide 22 Anion Gap 10 BUN 56 H Creatinine 4.42 H Estim Creat Clear Calc 21 Estimated GFR 14 L Glucose 101 Calcium 8.9 Total Bilirubin 0.5 AST 50 ALT 47 Alkaline Phosphatase 140 H Total Protein 6.9 Albumin 3.6 Quality VTE Prophylaxis VTE prophylaxis: pharmacologic ordered
[2025-02-09] VITALS: PULSE 53
[2025-02-09 04:00] VITALS: PULSE 52
[2025-02-09 05:50] LABS: Hematocrit 35.6 % (42.0-52.0); Hemoglobin 11.0 g/dL (14.0-18.0); Immature Granulocyte Percent A 0.4 % (0-0.5); Lymphocytes Absolute Auto 2.79 K/mm3 (0.9-3.2); Mean Corpuscular HGB Conc 30.9 g/dl (32-36); Mean Corpuscular Hemoglobin 27.4 pg (26-34); Mean Corpuscular Volume 88.8 fl (80-100); Nucleated Red Blood Cells Absolute Auto 0.000 K/mm3 (0.0-0.012); Nucleated Red Blood Cells Perc 0.0 % (0.0-0.2); Platelet Count Result 479 k/mm3 (150-375); Red Blood Count 4.01 M/mm3 (4.6-6.20); White Blood Count 10.1 K/mm3 (4.5-10.0)
[2025-02-09 06:00] VITALS: BP 127/77; PULSE 51; RESP 18; TEMP 36.8; O2SAT 97
[2025-02-09 06:15] LABS: Alanine Aminotransferase 37 U/L (6-50); Albumin Level 3.5 g/dL (3.5-5.1); Alkaline Phosphatase 139 U/L (38-126); Anion Gap 8 mmol/L (4-12); Aspartate Amino Transferase 36 U/L (17-59); Bilirubin,Total 0.5 mg/dL (0.2-1.3); Blood Urea Nitrogen 52 mg/dL (9-20); Calcium 8.9 mg/dL (8.4-10.2); Carbon Dioxide 24 mmol/L (22-30); Chloride 106 mmol/L (98-107); Estimated CRCL calculation 22 ml/min; Estimated Glomerular Filt Rate 15; Glucose 104 mg/dL (65-110); Magnesium 1.8 mg/dL (1.6-2.3); Potassium 4.5 mmol/L (3.4-5.0); Sodium 138 mmol/L (137-145); Total Protein 6.9 g/dL (6.3-8.2)
[2025-02-09 08:00] VITALS: PULSE 50
[2025-02-09] MEDS: ISOSORBIDE MONONITRATE 15 MG TAB.ER.24H PO (08:31)
[2025-02-09] MEDS: oxyBUTYnin CHLORIDE XL 5 MG TAB.ER.24 10 MG PO (08:31)
[2025-02-09] MEDS: SENNOSIDES 8.6 MG TABLET PO (08:31)
[2025-02-09] MEDS: ASPIRIN 81 MG CHEWABLE TABLET PO (08:31)
[2025-02-09] MEDS: PANTOPRAZOLE 40 MG TABLET PO (08:31)
[2025-02-09] MEDS: ENOXAPARIN 30 MG/0.3 ML SYRINGE SUB-Q (08:32)
[2025-02-09] MEDS: ROSUVASTATIN 20 MG TABLET 40 MG PO (08:32)
--- NOTE | 2025-02-09 10:46 | PCNWS ---
Weekly nutritional screen. Patient is tolerating current diet with adequate intake. No weight loss reported. No nutritional needs at this time.
--- NOTE | 2025-02-09 11:06 | P.DS_ITS ---
DS: Admitting Diagnosis Discharge Date 02/09/2025 Admitting Diagnosis Sepsis DS: Discharge Diagnosis Discharge Diagnosis (1) Septic shock: Code(s): A41.9 - Sepsis, unspecified organism; R65.21 - Severe sepsis with septic shock Status: Acute (2) Abnormal urinalysis: Code(s): R82.90 - Unspecified abnormal findings in urine Status: Acute (3) Acute kidney injury: Code(s): N17.9 - Acute kidney failure, unspecified Status: Acute (4) Leukodystrophy: Onset Date: ~06/2021 Code(s): G31.80 - Leukodystrophy, unspecified Status: Acute (5) Overactive bladder: Code(s): N32.81 - Overactive bladder Status: Acute (6) Lactic acidosis: Code(s): E87.20 - Acidosis, unspecified Status: Acute (7) Chronic constipation: Code(s): K59.09 - Other constipation Status: Acute (8) Hydronephrosis: Qualifiers: Hydronephrosis type: with ureteral calculous obstruction Qualified Code(s): N13.2 - Hydronephrosis with renal and ureteral calculous obstruction Code(s): N13.30 - Unspecified hydronephrosis Status: Acute (9) Edema of both feet: Code(s): R60.0 - Localized edema Status: Acute (10) Physical deconditioning: Code(s): R53.81 - Other malaise Status: Acute (11) Bradycardia: Code(s): R00.1 - Bradycardia, unspecified Status: Acute DS: Summary Hospital Course Hospital Course: # Septic shock: * Patient was in septic shock likely secondary to urinary tract infection-off Levophed, hemodynamically stable, off IV fluid, medical with tele # UTI/Abnormal urinalysis: * Patient was in septic shock likely secondary to urinary tract infection-off Levophed, hemodynamically stable, off IV fluid, medical with tele * UA shows 2+ leukocyte is trace more than 100 WBC in the urine. Urine culture grew Proteus Mirabilis. * CT abdomen and pelvis shows cystitis and or changes due to prostatomegaly and right renal pelvis 1.2 cm stone with mild hydronephrosis * Completed ceftriaxone to complete 10 days of antibiotics. * Blood culture with Proteus mirabilis. Completed antibiotics course * WBC 10.0. # Acute kidney injury: * Likely secondary to septic shock * On admission, creatinine 2.71, trended up to 8 at peak * Nephrology is following, appreciate recs * Kidney function is improving now, has adequate urine output and down trending creatinine. * Recheck BMP in 1 week upon discharge # Leukodystrophy: * Lives at [facility]. # Overactive bladder: * Oxybutynin 10 mg PO daily. # Lactic acidosis: * Lactic acid normalized # Chronic constipation: * MiraLax p.r.n. # Hydronephrosis: * Likely secondary to left kidney stone. * Status post cystoscopy, right 3 GERD, right stent placement 4.8 Mongolian 01/25/2025 by urology. * Plan for definitive to outpatient stone treatment and stent management. # Edema of both feet: * Likely secondary to IV fluid * 2D echo 03/14/2024 shows EF 55-60%, normal left ventricle systolic function, suspected diastolic function abnormal at that point * On clinical exam there is no sign of cardiac dysfunction * Feet edema is better * Lasix on hold at discharge # Physical deconditioning: * Likely secondary to multifactorial etiology: Acute illness/immobility * Physical therapy/ Occupational therapy. * Dietary consult, to increase his oral intake. Improving. # Bradycardia: * Metoprolol is on Hold. # [facility] resident # DVT prophylaxis Time Spent with Patient Time attestation: Total time spent providing and/or coordinating discharge services: 45 minutes Exam Narrative: Patient is comfortable, NAD HEENT: eyes are clear and none icteric LUNGS:CTA HEART: RR S1S2 ABD: BS+, Soft and nontender Lower extremities: no edema SKIN: nonjaundiced Neuro: grossly intact. DS: Data Data Completed and Pending Labs on day of discharge: Labs from last 24 hours 02/09/25 05:12 WBC 10.1 H RBC 4.01 L Hgb 11.0 L Hct 35.6 L MCV 88.8 MCH 27.4 MCHC 30.9 L RDW 13.9 Plt Count 479 H MPV 10.8 H Immature Gran % (Auto) 0.4 Neut % (Auto) 60.9 Lymph % (Auto) 27.5 [place] % (Auto) 6.8 Eos % (Auto) 3.1 Baso % (Auto) 1.3 H Lymph # (Auto) 2.79 [place] # (Auto) 0.7 H Eos # (Auto) 0.3 Baso # (Auto) 0.1 Abs Immat Gran (auto) 0.04 H Absolute Neuts (auto) 6.2 Absolute Nucleated RBC 0.000 Nucleated RBC % 0.0 Sodium 138 Potassium 4.5 Chloride 106 Carbon Dioxide 24 Anion Gap 8 BUN 52 H Creatinine 4.19 H Estim Creat Clear Calc 22 Estimated GFR 15 L Glucose 104 Calcium 8.9 Magnesium 1.8 Total Bilirubin 0.5 AST 36 ALT 37 Alkaline Phosphatase 139 H Total Protein 6.9 Albumin 3.5 Procedures/Treatments: Procedure Note - Detailed Date of Procedure 01/25/25 Pre-op Diagnosis Septic shock, obstructing right UPJ calculus Post-op Diagnosis Same Procedure Performed Cystoscopy, right retrograde, right stent placement 4.8 Mongolian contour, complex Peralta catheter placement 16 Mongolian Surgeon Korey Suazo MD Anesthesia General Description of Procedure Patient was taken to the operative suite correctly identified. Once anesthesia was obtained was placed in dorsal lithotomy position and prepped and draped usual sterile fashion. Nineteen Mongolian scope was inserted the bladder. Prostate did not appear overly obstructive. The bladder itself was 1 to 2+ trabeculation. No tumors noted at this time. The right ureteral orifice was cannulated with a ureteral catheter and a pyelogram made it up into the collecting system. Sensor wire was then inserted. 4.8 Mongolian contour stent was then placed with the proximal end coiled in the renal pelvis distal in the bladder. It was noted that there was some purulence which was draining upon placement of the wire. In order to maximize drainage I anesthetized the urethra with 2% viscous lidocaine and then placed a 16 Mongolian Peralta with 10 cc in the balloon. That can be removed in the next day or 2. The stone will need to be addressed once he gets over this acute episode. This completes dictation. Estimated Blood Loss 0 Drains Yes Packing No Pathology None sent Complications No immediate complications Condition Stable Disposition PACU Imaging Radiologist's impression: ITS Impressions Chest X-Ray 01/25/25 08:31 IMPRESSION: Tip of the left subclavian venous catheter is in proximal SVC Head CT 01/25/25 08:55 Impression: No intracranial hemorrhage, mass, or acute infarct. Atrophy and chronic white matter changes, as above. Chest/Abdomen/Pelvis CT 01/25/25 08:58 Impression: 14 mm proximal right ureteral stone with mild right hydronephrosis. Additional small bilateral nonobstructing renal stones. Cholelithiasis. Small fat-containing umbilical hernia. Chest X-Ray 01/25/25 09:27 IMPRESSION: 1.Interstitial and airspace opacities scattered throughout both lungs. Differential includes but is not limited to edema or pneumonia. Follow-up is recommended. 2. Blunting of the left costophrenic angle likely due to a small left-sided pleural effusion. Recommend follow-up to resolution. Renal Ultrasound 01/26/25 21:46 Impression: 1: Unremarkable renal ultrasound. No stones, masses or hydronephrosis. Abdomen X-Ray 01/27/25 09:54 IMPRESSION: Right double-J ureteral stent in place. Chest X-Ray 01/28/25 06:48 Impression: Clear lungs. Left subclavian line in place. Abdomen X-Ray 02/01/25 14:42 IMPRESSION: 1: No acute abdominal abnormality identified. Discharge Plan Discharge Attending physician on discharge: Aguila Brownlee Consulting providers: Francisco Wild; Kemar Birch; Willie Perera Discharging Clinician: Aguila Brownlee Anticipated Discharge Date/Time: 02/09/25 11:10 Patient Disposition: SNF Activity: as tolerated Diet: heart healthy and renal Patient Language: Polish Stand Alone Forms: General Discharge Information Follow-up/Referrals: Chencho Sosa MD [Primary Care Provider, Family Practice] - 1 Week Korey Suazo MD [Physician, Urology] - Call for Appointment Referral Note: Ureteral stent present Problems: Calculus of proximal right ureter Discharge Medications: New polyethylene glycol 3350 [Miralax] 17 gram Powder In Packet 17 g PO BID Qty: 30 0RF Continued aspirin 81 mg tablet,chewable 1 tablet PO DAILY rosuvastatin 40 mg tablet 40 mg PO DAILY isosorbide mononitrate 30 mg tablet extended release 24 hr 15 mg PO DAILY Qty: 45 0RF oxybutynin chloride 15 mg tablet extended release 24hr 10 mg PO DAILY biotin tablet 10 mg PO DAILY omeprazole 20 mg capsule,delayed release(DR/EC) 20 mg PO DAILY Rx Instructions: TAKE 1 CAPSULE BY MOUTH DAILY baclofen 5 mg tablet 5 mg PO BID PRN (Reason: muscle spasm) cyanocobalamin (vitamin B-12) 1,000 mcg/mL solution 1,000 mcg subcut MONTHLY Qty: 10 1RF Discontinued metoprolol succinate 25 mg tablet extended release 24 hr 25 mg PO DAILY furosemide [Lasix] 20 mg tablet 20 mg PO QAM Qty: 30 5RF Other Ambulatory Orders: Basic Metabolic Panel (Routine) Timeframe: 1 Week Location: Determined by Patient Ordered By: Aguila Brownlee Date of admission: 01/25/25 04:57 Primary Care Provider: Chencho Sosa Admitting Provider: Linda Estes Attending physician on admission: Linda Estes Condition: Improved
[2025-02-09 12:00] VITALS: PULSE 58
== END 2025-02-09 16:20 | DRG 853 ==
LOC: ANHED 01-25 00:15 → ANHICU 01-25 05:25 → ANHIMU 01-26 23:17 → ANH3MED 01-30 10:50
PROVIDERS: General Practice; Internal Medicine; Internal Medicine Nephrology; Nurse Practitioner Family; Student in an Organized Health Care Education/Training Program; Urology; Admitting Provider Internal Medicine; Emergency Provider Student in an Organized Health Care Education/Training Program; PCP Family Medicine; Visit Provider Internal Medicine
PROC: (CPT 52352; principal; 2025-01-25 14:00)
DX: A41.9 Sepsis, unspecified organism (principal); G93.41 Metabolic encephalopathy; R65.21 Severe sepsis with septic shock; R47.01 Aphasia; N39.0 Urinary tract infection, site not specified; N17.9 Acute kidney failure, unspecified; N13.2 Hydronephrosis with renal and ureteral calculous obstruction; I10 Essential (primary) hypertension; Z79.82 Long term (current) use of aspirin; K21.9 Gastro-esophageal reflux disease without esophagitis; E53.8 Deficiency of other specified B group vitamins; I25.10 Atherosclerotic heart disease of native coronary artery without angina pectoris; G71.00 Muscular dystrophy, unspecified; E78.2 Mixed hyperlipidemia; B96.4 Proteus (mirabilis) (morganii) as the cause of diseases classified elsewhere; N32.81 Overactive bladder; K59.09 Other constipation
CPT/HCPCS: 36415; 36556; 70450; 71045; 71250; 74018; 74176; 74420; 76775; 80048; 80053; 80069; 80202; 81001; 81050; 82140; 82550; 82570; 83605; 83735; 84100; 84156; 84300; 84443; 84540; 85025; 85027; 85055; 85610; 85730; 85999; 86140; 86704; 86706; 87040; 87086; 87340; 87641; 93005; 96365; 96366; 96367; 96375; 97110; 97162; 97166; 97530; 97535; 99285; A9270; C1751; C1758; C1769; C2617; J0692; J0696; J1650; J1938; J2185; J2405; J2470; J2704; J2997; J3373; J3420; J3475; J7030; J7120; Q9966

== ENCOUNTER 2025-04-02 18:16 | Emergency (ER) | payer MEDICARE, MEDICAID, SELFPAY ==
--- NOTE | ~2025-04-02 | CT_ITS ---
CT abdomen pelvis w con INDICATION:syncope, recent urinary stents . COMPARISON: 01/25/2025 TECHNIQUE: Axial images of the abdomen and pelvis were obtained following infusion of 100 mL Isovue 300. Dose optimization technique was utilized. FINDINGS: The lung bases are clear. The liver parenchyma is unremarkable. There is a 1.6 x 2.7 cm mass within the right hepatic lobe abutting the fundus of the gallbladder. Cholelithiasis is noted. The pancreas and spleen are normal in appearance. The adrenal glands are symmetric in size. Right double-J ureteral stent is in place. There is no hydronephrosis. Nonobstructive bilateral intrarenal stones are present. No cystic mass is evident. There is no solid mass. There is no hydronephrosis. Evaluation of the stomach and bowel loops are limited due to lack of oral contrast. The appendix is normal in appearance. There are fat-containing umbilical hernias. The bladder and rectum are normal. No free intraperitoneal fluid or air is evident. There is no significant retroperitoneal lymphadenopathy. The aorta, visceral vessels and renal arteries demonstrate normal caliber and patency. The lower thoracic and lumbar vertebrae are in normal alignment. IMPRESSION: Right double-J ureteral stent is noted. There is no hydronephrosis. There is a 1.6 x 2.7 cm low density mass in the right hepatic lobe abutting the fundus of the gallbladder. A malignancy cannot be excluded. Consider follow-up MRI or CT using hepatic protocol. All CT scans at this facility are performed using low dose modulation techniques as appropriate to perform exam including the following: automated exposure control; use of iterative reconstruction technique; adjustment of the mA and/or kV according to patient size (this includes techniques or standardized protocols for targeted exams where dose is matched to indication/reason for exam). Reviewed, dictated and finalized at location S. IMPRESSION: Right double-J ureteral stent is noted. There is no hydronephrosis. There is a 1.6 x 2.7 cm low density mass in the right hepatic lobe abutting the fundus of the gallbladder. A malignancy cannot be excluded. Consider follow-up MRI or CT using hepatic protocol. All CT scans at this facility are performed using low dose modulation techniqu es as appropriate to perform exam including the following: automated exposure c ontrol; use of iterative reconstruction technique; adjustment of the mA and/or kV according to patient size (this includes techniques or standardized protocol s for targeted exams where dose is matched to indication/reason for exam).
--- NOTE | ~2025-04-02 | XR_ITS ---
XR chest 1V portable INDICATION:Syncopal episode . REFERENCE: None FINDINGS: A single AP of the chest demonstrates normal heart size. There are interstitial groundglass opacities bilaterally. Small left pleural effusion. IMPRESSION: Interstitial groundglass opacities bilaterally suggestive of pulmonary congestion. There is a small left pleural effusion. Reviewed, dictated and finalized at location S. IMPRESSION: Interstitial groundglass opacities bilaterally suggestive of pulmonary congesti on. There is a small left pleural effusion.
[2025-04-02 18:12] VITALS: BP 133/78; PULSE 86; RESP 22; TEMP 36.8; O2SAT 98
--- NOTE | 2025-04-02 18:20 | ECG_ITS ---
Test Date: 2025-04-02 18:25:12 Measurements Intervals [place] Rate: 82 P: 181 [place]: 132 QRS: 209 QRSD: 106 T: 128 QT: 349 QTc: 408 Interpretive Statements SINUS RHYTHM LIMB LEAD REVERSAL DELAYED PRECORDIAL R/S TRANSITION BORDERLINE ECG Compared to ECG 01/24/2025 23:38:30 HEART RATE HAS DECREASED Electronically Signed On 04-02-2025 20:55:47 CDT by Franko Carey D.O.
[2025-04-02 18:34] LABS: Hematocrit 40.8 % (42.0-52.0); Hemoglobin 13.0 g/dL (14.0-18.0); Immature Granulocyte Percent A 0.3 % (0-0.5); Lymphocytes Absolute Auto 2.89 K/mm3 (0.9-3.2); Mean Corpuscular HGB Conc 31.9 g/dl (32-36); Mean Corpuscular Hemoglobin 27.5 pg (26-34); Mean Corpuscular Volume 86.4 fl (80-100); Nucleated Red Blood Cells Absolute Auto 0.000 K/mm3 (0.0-0.012); Nucleated Red Blood Cells Perc 0.0 % (0.0-0.2); Platelet Count Result 306 k/mm3 (150-375); Red Blood Count 4.72 M/mm3 (4.6-6.20); White Blood Count 12.1 K/mm3 (4.5-10.0)
[2025-04-02 18:46] LABS: Alanine Aminotransferase 12 U/L (6-50); Albumin Level 4.4 g/dL (3.5-5.1); Alkaline Phosphatase 95 U/L (38-126); Anion Gap 11 mmol/L (4-12); Aspartate Amino Transferase 16 U/L (17-59); Bilirubin,Total 0.9 mg/dL (0.2-1.3); Blood Urea Nitrogen 21 mg/dL (9-20); Calcium 9.4 mg/dL (8.4-10.2); Carbon Dioxide 25 mmol/L (22-30); Chloride 103 mmol/L (98-107); Estimated CRCL calculation 59 ml/min; Estimated Glomerular Filt Rate 51; Glucose 189 mg/dL (65-110); Potassium 4.1 mmol/L (3.4-5.0); Sodium 139 mmol/L (137-145); Total Protein 7.9 g/dL (6.3-8.2)
--- OUTSIDE RECORDS SUMMARY | 2025-04-02 19:11 | XMS_ITS | Clinical Summary ---
Author Organization [facility] System Address [address] [place] [address] Care Team Providers Care Quality Assurance Supervisor Name Role Phone Chencho Sosa MD Primary Care Provider [phone] Wendy Trevino MD Unavailable [phone] Allergies Active Allergy Reactions Criticality Noted Date Comments Lisinopril Dizziness 10/31/2021 Medications aspirin 81 MG tablet Take 1 tablet (81 mg total) by mouth daily. 02/28/20 19 Active omeprazole (PRILOSEC) 20 MG capsule Take 1 capsule (20 mg total) by mouth daily. 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 at bedtime 90 tablet 1 03/09/20 22 Active Biotin 10 MG TabIndications:M yelopathy ([facility] HHS/HCC) Take 1 tablet by mouth daily. 30 tablet 11 12/20/19 23 Active Coenzyme Q10 100 MG TabIndications:M yelopathy ([facility] HHS/HCC) Take 100 mg by mouth daily. 30 tablet 11 01/15/20 23 Active atorvastatin (LIPITOR) 80 MG tablet Take 1 tablet (80 mg total) by mouth. 03/29/20 23 Active isosorbide mononitrate ER (IMDUR) 30 MG 24 hr tablet TAKE 1/2 TABLET(15 MG) BY MOUTH DAILY 45 tablet 1 09/10/19 24 Active cyanocobalamin (B-12) 1000 MCG/ML injection Inject 1 mL (1,000 mcg total) into the muscle every 28 days. 08/15/19 24 Active mirabegron ER (MYRBETRIQ) 25 MG 24 hr tablet Take 1 tablet (25 mg total) by mouth daily. 10/01/19 24 Active furosemide (LASIX) 20 MG tablet Take 1 tablet (20 mg total) by mouth daily. 05/03/20 Active rosuvastatin (CRESTOR) 40 MG tablet TAKE 1 TABLET BY MOUTH EVERY NIGHT AT BEDTIME 100 tablet 2 12/18/19 24 Active metoprolol succinate ER (TOPROL-XL) 25 MG 24 hr tablet TAKE 1 TABLET BY MOUTH ONCE DAILY 100 tablet 2 03/23/20 24 Active pregabalin (LYRICA) 50 MG capsule Take 1 capsule (50 mg total) by mouth 2 (two) times daily. 07/02/19 Active baclofen (LIORESAL) 5 MG tablet Take 1 tablet (5 mg total) by mouth daily. 10/04/19 25 Active QUEtiapine (SEROQUEL) 25 MG tabletIndication s:Anxiety Take half a tablet twice a day as needed for agitation 60 tablet 5 03/22/20 25 Active QUEtiapine (SEROQUEL) 25 MG tabletIndication s:Anxiety Take half a tablet twice a day as needed for agitation 60 tablet 5 03/15/20 25 025 Discontinued QUEtiapine (SEROQUEL) 25 MG tabletIndication s:Anxiety Take half a tablet twice a day as needed for agitation 60 tablet 5 03/15/20 25 025 Discontinued Active Problems Problem Noted Date Diagnosed Date Gastroesophageal reflux disease 08/17/2024 Hyperlipidemia 08/17/2024 Lumbar radiculopathy 08/17/2024 Chronic skin ulcer of calf 08/02/2023 Cobalamin deficiency 08/02/2023 Hypertensive chronic kidney disease with stage 1 through stage 4 chronic kidney disease, or unspecified chronic kidney disease 08/02/2023 Lymphedema 08/02/2023 Obesity 08/02/2023 Leukodystrophy 08/01/2023 Spasticity 08/01/2023 Unsteady gait when walking 08/01/2023 Essential hypertension 07/29/2023 White matter abnormality on MRI of brain 022 Urolithiasis 10/25/2021 Syncope, unspecified syncope type 10/19/2021 Paroxysmal SVT (supraventricular tachycardia) Snoring 11/22/2020 Daytime somnolence 11/22/2020 Pure hypercholesterolemia 11/26/2019 Right leg numbness 06/10/2019 Lumbar transverse process fracture 01/05/2019 Coronary artery disease invo lving jena coronary artery of jena heart without angina pectoris 03/13/2018 Chest pain 03/11/2018 Resolved Problems Problem Noted Date Diagnosed Date Resolved Date Impaired mobility and activi ties of daily living 01/05/2019 11/28/2020 Encounters Date Type Department Care Team Description 03/18/2025 MyChart Message Enc [facility] [address] [place] [address] Autumn Lima PA-C Reivew of records 03/16/2025 Telephone [facility] [address] [place] [address] Autumn Lima PA-C Information ([facility]) 03/14/2025 MyChart Message Enc [facility] Neurology Speciality [facility] [place] [address] [facility] [place] [phone] Jett Clement MD Ken [place] 03/14/2025 MyChart Message Enc [facility] [address] [place] [address] Wendy Trevino MD Blood Pressure 03/11/2025 10:40 AM CDT Office Visit [facility] Neurology Speciality [facility] [place] [address] [place] [address] Jett Clement MD Follow Up (follow up/) 03/11/2025 Telephone [facility] Neurology Speciality [facility] [place] [address] [place] [address] Jett Clement MD Medication 03/11/2025 Travel 02/09/2025 Scan [facility] Scanned, Doc Med Group 02/01/2025 Scan [facility] Scanned, Doc Med Group Image (SCAN) 2025 Scan [facility] Scanned, Doc Med Group Image (SCAN) 01/27/2025 Scan [facility] [address] [place] [address] Scanned, Doc Pccl 01/26/2025 Scan [facility] [address] [place] [address] Scanned, Doc Pccl 01/25/2025 Scan [facility] [address] [place] [address] Scanned, Doc Pccl 01/25/2025 Scan [facility] [address] [place] [address] Scanned, Doc Pccl 01/25/2025 Scan [facility] [address] [place] [address] Scanned, Doc Pccl 01/25/2025 Scan [facility] [address] [place] [address] Scanned, Doc Pccl 01/25/2025 Scan [facility] [address] [place] [address] Scanned, Doc Pccl 01/25/2025 Scan [facility] [address] [place] [address] Scanned, Doc Pccl 01/25/2025 Scan [facility] [address] [place] [address] Scanned, Doc Pccl 01/25/2025 Scan [facility] [address] [place] [address] Scanned, Doc Pccl 01/25/2025 Scan [facility] [address] [place] [address] Scanned, Doc Pccl 01/25/2025 Scan [facility] [address] [place] [address] Scanned, Doc Pccl 01/25/2025 Scan [facility] Scanned, Doc Med Group CT (SCAN); Image (SCAN) 01/24/2025 Scan [facility] [address] [place] [address] Scanned, Doc Pccl 01/24/2025 Scan [facility] [address] [place] [address] Scanned, Doc Pccl from Last 3 Months Immunizations Immunization Administration Dates Next Due Afluria 36 MONTHS+ (Prefille d Syringe IIV4) 03/04/2019 Influenza (Generic) 04/10/2021, 9,05/22/2015,2012 Influenza Adult (Generic) 05/13/2021,,03/04/2019,2017,04/04/2018,05/22/2015,05/08/2013 Shingrix 01/03/2022,10/18/2021 Tdap (Generic) 07/05/2021, 9,01/03/2019,2012,01/16/2013 Tetanus Toxoid Inj 01/03/2019,01/03/2019, 013 Zoster Unspecified Formulation 01/03/2022,2021 Family History Medical History Relation Comments Heart Disease Father Diabetes Mother Early Mother Heart Disease Mother Diabetes Sister 1 Diabetes Sister 2 Relation Status Comments Father Mother Sister 1 Alive Sister 2 Alive Social History Tobacco Use Types Packs/Day Years [...] Sexual Orientation Straight 06/02/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 Occupation Industry Job Start Date Job End Date Not on file Not on file Not on file Not on file Last Filed Vital Signs Vital Sign Reading Time Taken Comments Blood Pressure 161/91 03/11/2025 10:34 AM CDT Pulse 83 03/11/2025 10:34 AM CDT Temperature 36.7 C (98.1 F) 03/11/2025 10:34 AM CDT Respiratory Rate 17 05/28/2023 2:47 PM SENIOR MILITARY ANALYST Oxygen Saturation 97% 03/11/2025 10: 34 AM CDT Inhaled Oxygen Concentration - - Weight 109.4 kg (241 lb 3.2 oz) 025 10:34 AM CDT Height 177.8 cm (5' 10) 03/11/2025 10: 34 AM CDT Body Mass Index 34.61 03/11/2025 10:34 AM CDT Plan of Treatment Upcoming Encounters Date Type Department Care Team (Late st Contact Info) Description 08/12/2025 10:40 AM 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 [address] [place] [address] Health Maintenance Due Date Last Done Comments ASCVD Statin 1965 Colorectal Cancer Screening Colonoscopy (10 Years) 1965 Annual Physical 01/29/1968 Pneumococcal Vaccine: 50+ Years (1 of 2 - PCV) 01/29/1984 ASCVD LDL 12/08/2023 12/07/2022, 05/10, 04/26/2021, Additional history exists PHQ-2 (Physician [place]) 06/10/2024 02/03/2024 RSV Immunization or 60+ Years (1 - Risk 60-74 years 1-dose series) 2025 COVID-19 Vaccine (3 - season) 2025 05/13/2021, 10/15/2020 Influenza Adult (#1) 2025 05/13/2021, 04/10/2021, 04/10/2019, Additional history exists DTaP, Tdap and Td Vaccines (8 - Td or Tdap) 07/05/2031 07/05/2021, 01/03/2019, 01/03/2019, Additional history exists Hepatitis C Completed 10/17/2021, 01/03/2019 Zoster Vaccines Completed 01/03/2022, 12/09, 10/18/2021, Additional history exists Hepatitis A Vaccines Aged Out No long er eligible based on patient's age to complete this topic Meningococcal B Vaccine Aged Out No l [...] perform ADLs independently General No Tori Garcia, PAPER NOVELTY MAKERpetroleum engineering teacher Devices Implanted Type Area Black Ash Burner Operator Device Identifier Shelf Expiration Date Model / Serial / Lot Stent Ureteral [place] Sci Contour 6fr X 26cm - [id number] Implanted:Qty : 1 on 11/02/2021 by Ed Gr MD at [facility] Stent Left: Ureter [employer] [id number] 07/17/2024 [id number] 30 / / [id number] Explanted Type Area Black Ash Burner Operator Device Identifier Shelf Expiration Date Model / Serial / Lot Stent Ureteral [place] Sci Contour 6fr X 26cm - [id number] Implanted:Qty: 1 on 10/25/2021 by Ed Gr MD at [facility] Explanted:Qty: 1 on 11/02/2021 at [facility] Stent Left: Ureter [employer] 06/23/2024 [id number] 0 / / [id number] Procedures Procedure Name Priority Date/Time Associated Diagnosis Comments COMPREHENSIVE METABOLIC PANEL Routine 02/09/2025 CBC, MANUAL DIFF Routine 02/09/2025 IMAGE GENERIC 02/01/2025 IMAGE GENERIC 2025 IMAGE GENERIC Routine 01/27/2025 ULTRASOUND GENERIC (SCAN ORDER) Routine 01/26/2025 CT GENERIC 01/25/2025 CT GENERIC 01/25/2025 IMAGE GENERIC Routine 01/25/2025 IMAGE GENERIC 01/25/2025 PROCEDURE GENERIC (SCAN ORDER) Routine 01/25/2025 ECG GENERIC (SCAN ORDER) Routine 01/24/2025 IMAGE GENERIC Routine 01/24/2025 LIPID PANEL Routine 12/07/2022 10:17 AM CDT Hyperlipidemia, mixed HEPATITIS C ANTIBODY Routine 10/17/2021 9:49 AM CDT from Last 3 Months or Most Recently Relevant to Health Maintenance Results * (ABNORMAL) COMPREHENSIVE METABOLIC PANEL (02/09/2025) SODIUM S/P/B 138 GLUCOSE 104 mg/dL AST 36 BUN 8 CREATININE S/P/B 4.19(A) 0.7 - 1.3 CALCIUM S/P/B 8.9 POTASSIUM S/P/B 4.5 CHLORIDE S/P/B 106 ALT 37 GFR ESTIMATE 15 us Default History Genericprovider LABORATORY Final Result * CBC, MANUAL DIFF (02/09/2025) WBC 10.1 HGB 11.0 HCT 35.6 PLT 476 us Default History Genericprovider LABORATORY Final Result * IMAGE GENERIC (02/01/2025) Only the most recent of6 resultswithin the time period is included. Anatomical Region Laterality Modality Other 02/01/2025 us Doc Med Group Scanned SCANNING Final Resu lt * ULTRASOUND (01/26/2025) Anatomical Region Laterality Modality Other us Doc Pccl Scanned SCANNING Final Result * CT GENERIC (01/25/2025) Only the most recent of2 resultswithin the time period is included. Anatomical Region Laterality Modality Other 01/25/2025 us Doc Med Group Scanned SCANNING Final Resu lt * PROCEDURE GENERIC (01/25/2025) us Doc Pccl Scanned SCANNING Final Result [facility] ONBASE * ECG (01/24/2025) us Doc Pccl Scanned SCANNING Final Result [facility] ONBASE * LIPID PANEL (12/07/2022 10:17 AM CDT) CHOLESTEROL 128 <200 MG/DL 12/07/2022 11:37 AM CDT [facility] TRIGLYCERIDES 111 <150 MG/DL 12/07/2022 11:37 AM CDT [facility] HDL 49 >40.0 MG/DL 12/07/2022 11:37 AM CDT [facility] LDL (CALCULATED) 57 <100 MG/DL 12/08/19 11:37 AM CDT [facility] NON HDL CHOLESTEROL 79 <130 MG/DL 12/07 11:37 AM CDT [facility] CHOL/HDL RATIO 2.6 0.0 - 4.5 12/07/2022 11:37 AM CDT [facility] VLDL CALCULATION 22 5 - 55 MG/DL 12/07/2022 11:37 AM CDT [facility] LIPID INTERPRETATION 12/07/2022 11:37 AM CDT [facility] Comment: NIH CONCENSUS REPORT RECOMMENDATIONS: ADULT CHILD LOW RISK: CHOLESTEROL <200 <170 TRIGLYCERIDE <150 --- HDL >=60 --- LDL <100 <110 BORDERLINE: CHOLESTEROL 200-239 170-199 TRIGLYCERIDE 150-199 --- HDL 40-59 --- LDL 100-159 110-129 HIGH RISK: CHOLESTEROL >=240 >=200 TRIGLYCERIDE >=200 --- HDL <40 --- LDL >=160 >=130 12/07/2022 10:1 7 AM CDT Autumn Lima PA-C LABORATORY Final Resul t Performing Organization Address City/[facility]/ZIP Co de Phone Number [facility] [address] [place] [address], [place] [phone] * HEPATITIS C ANTIBODY (10/17/2021 9:49 AM CDT) HEPATITIS C AB NON-REACTI VE NON-REACTI VE 10/18/2021 9:41 AM CDT [facility] 10/17/2021 9:49 AM CDT Jett Clement MD LABORATORY Final Res ult [facility] [address] [place] [address], from Last 3 Months or Most Recently Relevant to Health Maintenance Insurance MEDICARE MEDICAID Advance Directives Documents on File Type Date Recorded Patient Sales And Marketing Professional Expl anation Advance Directives and Living Will 03/13/2018 10:17 AM 03/12/2018 POA FOR HEALTHCARE * Full Code (Latest Code Status on File) Date Activated Date Inactivated Comments 10/25/2021 1:06 AM 10/30/2021 5:27 PM * Full Code Date Activated Date Inactivated Comments 06/25/2018 11:51 PM 06/26/2018 4:10 PM * Full Code Date Activated Date Inactivated Comments 03/13/2018 1:45 PM 03/14/2018 3:08 PM Care Teams Quality Assurance Supervisor Relationship Specialty Start Date End Date Sosa, Chencho, MD [address] [place] [address] PCP - General FAMILY PRACTICE 03/11/18 Wendy Trevino MD [facility]. [facility] [address] [place] [address] [employer] Underwriter INTERVENTIONAL CARDIOLOGY 04/02/18
--- OUTSIDE RECORDS SUMMARY | 2025-04-02 19:11 | XMS_ITS | Encounter Summary ---
Author Organization [facility] Address [facility] [place] [address] Care Team Providers Care Senior Cobol Developer Name Role Phone Chencho Sosa MD Primary Care Provider [phone] Wendy Trevino MD Unavailable [phone] Encounter Details Date Type Department Care Team (Latest Contact Info) Description 02/25/2024 Bright Patternt Message Enc [facility] Multispecialty Care - [facility] [address] [facility], [address] [place] [phone] Jett Clement MD [address] [place] [address] Tashi Esposito - [facility] Social History Tobacco Use Types Packs/Day [...] Sexual Orientation Straight 06/02/2021 8: 10 AM OUTREACH PROFESSIONAL Occupation Industry Job Start Date Job End [...] 10:55 AM CDT Subject: Tashi Esposito - [facility] Dr. Garcia, This is Jayme Walden's sister. We have been trying to obtain scrips for PT and OT forKen to attend the [facility]. Apparently, the PT script went through but they have been unable to receive the OT script. The fax number is [phone], Attention: Patricia. Please advise wh en thishas been sent. I know the folks at the [facility] have also been trying to have the script sent as well. If it has been done, just let me know. Thank you in advance for your assistance. documented in this encounter Plan of Treatment Upcoming Encounters Date Type Department Care Team (Late st Contact Info) Description 08/12/2025 10:40 AM OUTREACH PROFESSIONAL Office Visit [facility] Group Neurology Speciality [facility] [place] [address] [address] [place] [address] Jett Clement MD [address] [facility] [place] [address] 11/10/2025 2:00 PM CDT Office Visit [facility] [address] [facility] [facility] [address] [place] [address] Wendy Trevino MD [address] [facility] [place] [address] documented as of this encounter Goals Goal Patient Goal Type Associated Problems Recent Progress Patient-Stated? Author Health - patient able to perform ADLs independently General No Tori Garcia, PARALEGAL SUPERVISOR documented as of this encounter Visit Diagnoses Not on filedocumented in this encounter Additional Health Concerns Assessment Noted Time PHQ-9 Depression Total Score: 0 08/30/19 22 2:43 PM CDT documented as of this encounter Care Teams Senior Cobol Developer Relationship Specialty Start Date End Date Chencho Sosa MD [address] [place] [address] PCP - General FAMILY PRACTICE 03/11/18 Wendy Trevino MD [address] [facility] [address] [place], [place] [address] [employer] School Manager INTERVENTIONAL CARDIOLOGY 04/02/18 documented as of this encounter
--- OUTSIDE RECORDS SUMMARY | 2025-04-02 19:11 | XMS_ITS | Encounter Summary ---
Author Organization [facility] System Address [facility] [place] [address] Care Team Providers Care Business Systems Analyst Name Role Phone Chencho Sosa MD Primary Care Provider [phone] Wendy Trevino MD Unavailable [phone] Encounter Details Date Type Department Care Team (Late st Contact Info) Description 03/18/2025 [email or web address] Message Enc [facility] THREE [facility] [place], [place] [address] Autumn Lima PA-C [address] [facility], [address] [place], [place] [address] Reivew of records Social History Tobacco Use Types Packs/Day Years [...] Sexual Orientation Straight 06/02/2021 8: 10 AM CHANGE NUMBER OPERATOR Occupation Industry Job Start Date Job [...] st Contact Info) Description 08/12/2025 10:40 AM CHANGE NUMBER OPERATOR Office Visit [facility] Neurology Speciality Clinic - [address] [place] [phone] Jett Clement MD 3 [facility] [place] [address] 11/10/2025 2:00 PM CDT Office Visit [facility] [address] [facility] [place] [address] Wendy Trevino MD Three [facility]. [address] [place] [address] documented as of this encounter Goals Goal Patient Goal Type Associated Problems Recent Progress Patient-Stated? Author Health - patient able to perform ADLs independently General No Tori Garcia, LANGUAGE ARTS TEACHER documented as of this encounter Visit Diagnoses Not on filedocumented in this encounter Additional Health Concerns Assessment Noted Time PHQ-9 Depression Total Score: 0 08/30/19 22 2:43 PM CDT documented as of this encounter Care Teams Business Systems Analyst Relationship Specialty Start Date End Date Chencho Sosa MD [address] [place] [address] PCP - General FAMILY PRACTICE 03/11/18 Wendy Trevino MD [facility] [address] [place] [address] [place] Career Development Manager INTERVENTIONAL CARDIOLOGY 04/02/18 documented as of this encounter
--- OUTSIDE RECORDS SUMMARY | 2025-04-02 19:11 | XMS_ITS | Clinical Summary ---
Author Organization [facility] Address [address] [place] [address] Care Team Providers Care Casserole Preparer Name Role Phone Chencho Sosa MD Primary Care Provider Jett Clement MD Unavailable [phone] Allergies Active Allergy Reactions Criticality Noted Date [...] Type Department Care Team Description 01/08/2025 Telephone [facility] Medicine Pediatric Genetics [facility] [address] [place] [address] [place] [address] Mame Wing CGC Updated Results from Last 3 Months Immunizations Immunization Administration [...] Comments Blood Pressure 128/82 07/16/2023 9:57 AM DELIVERY ARCHITECT Pulse 64 07/16/2023 9:57 AM DELIVERY ARCHITECT Temperature 36.2 C (97.1 F) 03/27/2022 1:35 PM CDT Respiratory Rate 20 02/13/2022 9:13 AM CDT Oxygen Saturation 95% 02/13/2022 9:1 3 AM CDT Inhaled Oxygen Concentration - - Weight 131.5 kg (290 lb) 07/16/2023 9:5 7 AM DELIVERY ARCHITECT pt gave weight Height 177.8 cm (5' 10) 07/16/2023 9:5 7 AM DELIVERY ARCHITECT Body Mass Index 41.61 07/16/2023 9:57 AM DELIVERY ARCHITECT Plan of Treatment Health Maintenance Due Date Last Done Comments Colon Cancer Screening-Colonoscopy 1965 Depression Screening 1965 Hepatitis C Screening 1965 Prostate Cancer Screening-PSA 1965 Hepatitis B Screening 1983 Regular Well Visit/Exam 18-64 1983 Covid-19 Vaccine (3 - season) 2025 05/13/2021, 10/15/2020 Influenza Vaccine (#1) 2025 , 04/10/2021, 04/10/2019, Additional history exists DTaP/Tdap/Td Vaccine (4 - Td or Tdap) 07/05/2031 07/05/2021, 01/03/2019, 01/16/2013 Zoster Vaccine Completed 01/03/2022, 10/18/2021 Pneumococcal vaccine <65 Aged Out No longer eligible based on patient's age to complete this topic Insurance [facility] [place] [address] [facility] MEDICARE ADVANTAGE Care Teams Casserole Preparer Relationship Specialty Start Date End Date Chencho Sosa MD [address] [place] [address] PCP - General Family Medicine 03/31/20 Jett Clement MD [address] [place] [address] Referring Physician Neurology 11/07/21
--- OUTSIDE RECORDS SUMMARY | 2025-04-02 19:11 | XMS_ITS | Clinical Summary ---
Author Organization [facility] [employer] Address [address] [place] [address] Care Team Providers Care Imaging Tech Name Role Phone Chencho Sosa MD Primary Care Provider [phone] Source Comments [facility] [employer],non-owned Affiliates and Associated Physician Practices is amultiple site organization consisting of ambulatory clinics and hospital sitesin [place], [place], [place] and [place]. This disclosure is being madepursuant to the Care Everywhere program and may not contain all information available regarding this patient. Last updated 18.[facility] [employer] Allergies No known active allergies Medications * [...] 108 kg (238 lb) 05/25/2019 8:52 AM BATON TWIRLER Height 177.8 cm (5' 10) 05/25/2019 8:52 AM [facility] TWIRLER Body Mass Index 34.15 05/25/2019 8:52 AM BATON TWIRLER Plan of Treatment Health Maintenance Due Date Last Done Comments COLOGUARD (AGES 45-75) - COLON CA SCREENING 1965 COLON MONITORING 1965 COLONOSCOPY - COLON CA SCREENING 1965 CT COLONOGRAPHY - COLON CA SCREENING 1965 Colorectal Cancer Screening 1965 FIT - COLON CA SCREENING 1965 FLEX SIG - COLON CA SCREENING 1965 DTAP/TDAP/TD VACCINES (1 - Tdap) 01/29/1984 PNEUMOCOCCAL VACCINE 50+ (1 of 1 - PCV) 2015 ZOSTER VACCINE (1 of 2) 2015 SCREENING FOR DIABETES 01/05/2022 9, 01/04/2019, 01/03/2019 DEPRESSION SCREENING 06/10/2024 Respiratory Syncytial Virus (RSV) Vaccine Pt: or over 60 yrs (1 - Risk 60-74 years 1-dose series) 2025 COVID-19 VACCINE (1 - 2023- season) 2025 INFLUENZA VACCINE (#1) 2025 9, 04/04/2018, 05/22/2015, Additional history exists HEPATITIS C SCREENING Completed 01/03/2019 HIV SCREENING Completed 01/03/2019 HEPATITIS B VACCINE Aged Out No longe r eligible based on patient's age to complete this topic HIB VACCINE Aged Out No longer eligi [...] Progress Patient-Stated? Author Mobility General No Sri Ozuna RN Note: Expected end date: 03/09/2019 The [...] - 26 mg/dL 01/05/2019 3:43 AM CDT [facility] Creatinine 0.9 0.6 - 1.2 mg/dL 01/05/2019 3:43 AM CDT [facility] Sodium 139 136 - 145 mmol/L 01/05/2019 3:43 AM CDT [facility] Potassium 3.8 3.5 - 4.5 mmol/L 01/05/2019 3:43 AM CDT [facility] Chloride 106 98 - 107 mmol/L 01/05/2019 3:43 AM [facility] CO2 24 22 - 29 mmol/L 01/05/2019 3:43 AM [facility] Glucose 118(H) 70 - 115 mg/dL 01/05/2019 3:43 AM [facility] Calcium 8.1(L) 8.4 - 10.2 mg/dL 01/05/2019 3:43 AM [facility] Anion Gap 13 8 - 18 01/05/2019 3:43 AM [facility] BUN/Creatinine Ratio 16 7 - 23 01/05/2019 3:43 AM [facility] Osmolality Calculated 290 270 - 300 mOsm/kg 01/05/2019 3:43 AM [facility] eGFR >60 >60 mL/min/1.7 3 m2 01/05/2019 3:43 AM [facility] Blood BLOOD SPECIMEN / Unknown Lab Venipuncture / Unknown 01/05/2019 2:32 AM CDT 01/05/2019 3:15 AM CDT us Itz Quigley MD LAB - CHEMISTRY ORDERABLES Final Result [address] [phone] * HIV-1 HIV-2 ANTIGEN/ANTIBODY (01/03/2019 7:05 PM CDT) HIV Antigen/Antibod y 1 & 2 Non-reacti ve Non-react denia 01/03/2019 7:49 PM [facility] Comment: Neither HIV-1 p24 Antigen nor HIV-1/HIV-2 Antibodies are detected. Blood BLOOD SPECIMEN / Unknown Venipuncture / Unknown 01/03/2019 7:05 PM CDT 01/03/2019 7:06 PM CDT us Glenn Silver MD LAB - HEMATOLOGY ORDERABLES F inal Result [address] [phone] * HEPATITIS C AB SCREEN RFLX NAAT QUANT (01/03/2019 7:05 PM CDT) Hepatitis C Antibody Non-react denia Non-reac tive 01/03/2019 7:49 PM CDT [facility] Comment: Hepatitis C Antibody screen indicates [...] CDT Glenn Silver MD LAB - CHEMISTRY ORDERABLES nal Result [address] [phone] from Last 3 Months or Most Recently Relevant to Health Maintenance Insurance T [employer] Advance Directives Documents on File Type Date Recorded Patient Intelligence Group Supervisor Expl anation Adv Directive/Living Will/POA 01/12/2019 6:26 AM * Full Code (Latest Code Status on File) Date Activated Date Inactivated Comments 01/06/2019 9:41 AM 01/08/2019 2:07 PM Care Teams Imaging Tech Relationship Specialty Start Date End Date Chencho Sosa MD [address] [place] [address] PCP - General Family Medicine 01/03/19
--- OUTSIDE RECORDS SUMMARY | 2025-04-02 19:11 | XMS_ITS | Encounter Summary ---
Author Organization [facility] Address [facility] [place] [address] Care Team Providers Care Water Pumping Station Engineer Name Role Phone Chencho Sosa MD Primary Care Provider [phone] Wendy Trevino MD Unavailable [phone] Encounter Details Date Type Department Care Team (Latest Contact Info) Description 06/06/2023 Home Innst Message Enc [facility] Multispecialty Care - [facility] [address] [facility], [address] [place] [address] Jett Clement MD [address] [place] [address] Jayme Esposito - Referral to [facility] Social History Tobacco Use Types [...] Sexual Orientation Straight 06/02/2021 8: 10 AM MALLET AND DIE CUTTER Occupation Industry Job Start Date Job End [...] - 06/06/2023 1:58 PM CST Please advise ET AND DIE CUTTER documented in this encounter Plan of Treatment Upcoming Encounters Date Type Department Care Team (Late st Contact Info) Description 08/12/2025 10:40 AM MALLET AND DIE CUTTER Office Visit [facility] Neu[facility]ity [facility] - [place] [address] [facility] [address] [place] [phone] Jett Clement MD [address] [place] [address] 11/10/2025 2:00 PM CDT Office Visit [facility], [address] [place] [address] Wendy Trevino MD Three [facility]. [address] [place], [place] [address] documented as of this encounter Goals Goal Patient Goal Type Associated Problems Recent Progress Patient-Stated? Author Health - patient able to perform ADLs independently General No Tori Garcia, WIND PROJECT MANAGER documented as of this encounter Visit Diagnoses Not on filedocumented in this encounter Additional Health Concerns Assessment Noted Time PHQ-9 Depression Total Score: 0 08/30/19 22 2:43 PM CDT documented as of this encounter Care Teams Water Pumping Station Engineer Relationship Specialty Start Date End Date Chencho Sosa MD [address] [place] [address] PCP - General FAMILY PRACTICE 03/11/18 Wendy Trevino MD Three [facility]. [address] [place], [place] [address] Center Sandwich Display Artist INTERVENTIONAL CARDIOLOGY 04/02/18 documented as of this encounter
--- OUTSIDE RECORDS SUMMARY | 2025-04-02 19:11 | XMS_ITS | Encounter Summary ---
Author Organization [facility] Address [facility] [place] [address] Care Team Providers Care Concrete Rod Buster Name Role Phone Chencho Sosa MD Primary Care Provider [phone] Wendy Trevino MD Unavailable [phone] Encounter Details Date Type Department Care Team (Latest Contact Info) Description 04/03/2024 ScholarPROt Message Enc [facility] Multispecialty Care - [facility] [address] [facility], [address] [place] [address] Jett Clement MD [address] [place], [place] [id number] Tashi Esposito - Physician Statement to be [...] Sexual Orientation Straight 06/02/2021 8: 10 AM WATERWORKS SUPERVISOR Occupation Industry Job Start Date Job End [...] st Contact Info) Description 08/12/2025 10:40 AM WATERWORKS SUPERVISOR Office Visit [facility] Neurology Speciality Clinic - [address] [place] [phone] Jett Clement MD [address] [facility] [address] [place], [place] [id number] 11/10/2025 2:00 PM CDT Office Visit [facility] THREE [facility], [address] [place], [place] [phone] Wendy Trevino MD Three [facility]. [address] [place] [address] documented as of this encounter Goals Goal Patient Goal Type Associated Problems Recent Progress Patient-Stated? Author Health - patient able to perform ADLs independently General No Tori Garcia, CLINICAL STUDIES SPECIALIST documented as of this encounter Visit Diagnoses Not on filedocumented in this encounter Additional Health Concerns Assessment Noted Time PHQ-9 Depression Total Score: 0 08/30/19 2:43 PM CDT documented as of this encounter Care Teams Concrete Rod Buster Relationship Specialty Start Date End Date Chencho Sosa MD [address] [place] [address] PCP - General FAMILY PRACTICE 03/11/18 Wendy Trevino MD Three [facility]. [address] [place] [address] Janet Accounting Methods Analyst INTERVENTIONAL CARDIOLOGY 04/02/18 documented as of this encounter
--- OUTSIDE RECORDS SUMMARY | 2025-04-02 19:11 | XMS_ITS | Encounter Summary ---
Author Organization [facility] Address [facility] [place] [address] Care Team Providers Care Heel Cutter Name Role Phone Chencho Sosa MD Primary Care Provider [phone] Wendy Trevino MD Unavailable [phone] Encounter Details Date Type Department Care Team (Late st Contact Info) Description 03/14/2025 Pie Digital Message Enc [facility] [address] [place], [place] [phone] Wendy Trevino MD Three [facility]. [facility] [address] [place], [place] [phone] Blood Pressure Social History Tobacco Use Types Packs/Day Years [...] Sexual Orientation Straight 06/02/2021 8: 10 AM WELDING MACHINE OPERATOR [employer] Occupation Industry Job Start Date Job End [...] documented in this encounter Progress Notes * Chelo Rios RN - 03/16/2025 8:51 AM CDT . * Chelo Rios RN - 03/15/2025 8:47 AM CDT . documented in this encounter Plan of Treatment Upcoming Encounters Date Type Department Care Team (Late st Contact Info) Description 08/12/2025 10:40 AM WELDING MACHINE OPERATOR ULTRASONIC Office Visit [facility] Neurology Speciality Clinic - [address] [place] [address] Jett Clement MD [address] [place] [address] 11/10/2025 2:00 PM CDT Office Visit [facility], [address] [place] [address] Wendy Trevino MD Three [facility]. [facility] [address] [place] [address] documented as of this encounter Goals Goal Patient Goal Type Associated Problems Recent Progress Patient-Stated? Author Health - patient able to perform ADLs independently General No Tori Garcia, CERAMIC PRODUCTS SALES ENGINEER documented as of this encounter Visit Diagnoses Not on filedocumented in this encounter Additional Health Concerns Assessment Noted Time PHQ-9 Depression Total Score: 0 08/30/19 22 2:43 PM CDT documented as of this encounter Care Teams Heel Cutter Relationship Specialty Start Date End Date Chencho Sosa MD [address] [place] [address] PCP - General FAMILY PRACTICE 03/11/18 Wendy Trevino MD Three [facility]. [facility] [address] [place] [address] Craig Boiler Fitter INTERVENTIONAL CARDIOLOGY 04/02/18 documented as of this encounter
--- OUTSIDE RECORDS SUMMARY | 2025-04-02 19:11 | XMS_ITS | Encounter Summary ---
Author Organization [facility] Address [facility] [place] [address] Care Team Providers Care Slubber Operator Name Role Phone Chencho Sosa MD Primary Care Provider [phone] Wendy Trevino MD Unavailable [phone] Encounter Details Date Type Department Care Team (Late Contact Info) Description 03/05/2019 Abstract [facility] at [address] [address] Den Fisher MA Social History Tobacco Use [...] Sexual Orientation Straight 06/02/2021 8: 10 AM CONTRACTOR GENERAL BUILDING Occupation Industry Job Start Date Job End Date Not on file Not on file Not on file Not on file documented as of this encounter Plan of Treatment Upcoming Encounters Date Type Department Care Team (Late st Contact Info) Description 08/12/2025 10:40 AM CONTRACTOR GENERAL BUILDING Office Visit [facility] Neurology Speciality Clinic - [address] [place] [address] Jett Clement MD [address] [place] [address] 11/10/2025 2:00 PM CDT Office Visit [facility] THREE [facility], [address] [place] [address] Wendy Trevino MD Three [facility]. [address] [place] [address] documented as of this encounter Procedures Procedure Name Priority Date/Time Associated Diagnosis Comments COMPREHENSIVE METABOLIC PANEL Routine 02/09/2025 CBC, MANUAL DIFF Routine 02/09/2025 LIPID PANEL Routine 05/23/2021 CBC (OUTSIDE LAB) [...] 03/04/2019 documented in this encounter Results * (ABNORMAL) COMPREHENSIVE METABOLIC PANEL (02/09/2025) Pathologist [facility] SODIUM S/P/B 138 GLUCOSE 104 mg/dL AST 36 BUN 8 CREATININE S/P/B 4.19(A) 0.7 - 1.3 CALCIUM S/P/B 8.9 POTASSIUM S/P/B 4.5 CHLORIDE S/P/B 106 ALT 37 GFR ESTIMATE 15 us Default History Genericprovider LABORATORY Final Result * CBC, MANUAL DIFF (02/09/2025) Pathologist [facility] WBC 10.1 HGB 11.0 HCT 35.6 PLT 476 us Default History Genericprovider LABORATORY Final Result * LIPID PANEL (05/23/2021) Pathologist [facility] CHOLESTEROL 150 HDL 54 TRIGLYCERIDES 87 NON HDL CHOLESTEROL 96 LDL (CALCULATED) 79 05/23/2021 us Doc [facility] LABORATORY Final Result * CBC (OUTSIDE LAB) (04/26/2021) Pathologist [facility] WBC 8.4 HGB 14.7 HCT 45.7 PLT 287 04/26/2021 us Doc [facility] Abstract LAB-OUTSIDE/ABSTRACTED Final Result * LIPID PANEL (04/26/2021) Pathologist [facility] CHOLESTEROL 158 HDL 39 TRIGLYCERIDES 105 DIRECT LDL 98 04/26/2021 us Doc [facility]ORAT[facility] Final Result * COMPREHENSIVE METABOLIC PANEL (04/26/2021) Pathologist [facility] SODIUM S/P/B 135 137 - 145 POTASSIUM [...] Final * THYROID STIM HORMONE, TSH (10/12/2020) TSH 1.020 10/12/2020 us Doc [facility] Final Result * FOLIC ACID SERUM (10/12/2020) FOLATE 10.0 10/12/2020 us Doc [facility] Final Result * VITAMIN B-12 (10/12/2020) VITAMIN B12 S/P/B 348 10/12/2020 us Doc [facility] Final Result * COMPREHENSIVE METABOLIC PANEL (10/12/2020) SODIUM S/P/B 142 POTASSIUM S/P/B 4.0 CO2 [...] * PROSTATE SPECIFIC ANTIGEN,TOTAL (04/21/2020) Pathologist [facility] PSA 1.1 04/21/2020 us Doc [facility] Final Result * CBC (OUTSIDE LAB) (04/21/2020) [facility] WBC 7.6 HGB 15.4 HCT 45.9 PLT 294 04/21/2020 us Doc [facility] LAB-OUTSIDE/ABSTRACTED Final Result * THYROID STIM HORMONE, TSH (04/21/2020) [facility] TSH 1.36 04/21/2020 us Doc [facility]ORAT[facility] Final Result * COMPREHENSIVE METABOLIC PANEL (04/21/2020) [facility] SODIUM S/P/B 141 POTASSIUM S/P/B 4.3 CO2 [...] LABORATORY Final Result * LIPID PANEL (04/21/2020) [facility] CHOLESTEROL 166 HDL 49 TRIGLYCERIDES 99 NON HDL CHOLESTEROL 117 LDL (CALCULATED) 98 04/21/2020 us Doc [facility] Final Result * LIPID PANEL (03/04/2019) [facility] CHOLESTEROL 130 HDL 47 TRIGLYCERIDES 88 NON HDL CHOLESTEROL 83 LDL (CALCULATED) 66 03/04/2019 us Doc [facility] Final Result documented in this encounter Visit Diagnoses Not on filedocumented in this encounter Care Teams Slubber Operator Relationship Specialty Start Date End Date Chencho Sosa MD [address] [place] [address] PCP - General FAMILY PRACTICE 03/11/18 Wendy Trevino MD Three [facility]. [facility] [address] [place] [address] [place] [employer] Teacher INTERVENTIONAL CARDIOLOGY 04/02/18 documented as of this encounter
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
[2025-04-02 21:35] LABS: Add Urine Microscopic? YES; Appearance Urine Clear (Clear); Budding Yeast Urine Present /hpf; Glucose Urine UA Negative (Negative); Leukocyte Esterase Ur 2+ LEU/UL (Negative); Need Manual Microscopic Reviewed; Nitrate Urine Negative (Negative); Non Pathogenic Casts 0-2; Specific Grav Ur 1.018 (1.001-1.035)
--- NOTE | 2025-04-02 23:08 | PC.NURSE ---
Report received from MICHAEL Bella. Assumed care of patient at this time.
[2025-04-03 00:36] VITALS: BP 113/77; PULSE 71; RESP 17; O2SAT 99
[2025-04-03 00:38] VITALS: BP 113/79; PULSE 74; RESP 19; O2SAT 99
== END 2025-04-03 01:06 ==
PROVIDERS: Emergency Medicine; Emergency Provider Student in an Organized Health Care Education/Training Program; PCP Family Medicine
DX: R55 Syncope and collapse (principal); I11.9 Hypertensive heart disease without heart failure; I25.10 Atherosclerotic heart disease of native coronary artery without angina pectoris; G31.80 Leukodystrophy, unspecified; N32.81 Overactive bladder; R73.03 Prediabetes; E78.00 Pure hypercholesterolemia, unspecified; E53.8 Deficiency of other specified B group vitamins; K21.9 Gastro-esophageal reflux disease without esophagitis; Z79.82 Long term (current) use of aspirin; Z79.899 Other long term (current) drug therapy; R94.31 Abnormal electrocardiogram [ECG] [EKG]
CPT/HCPCS: 36415; 71045; 74177; 80053; 81001; 83605; 85025; 87086; 93005; 99284; Q9967